=== PATIENT | female | born 1970 | race Caucasian/White ===

== ENCOUNTER 2018-08-20 16:00 | Outpatient (RCR) | payer MEDICAID, SELFPAY | END 2018-08-20 17:15 | disposition home or self-care (01) | LOC: PT 16:00 | PROVIDERS: Visit Provider Nurse Practitioner Family | DX: M54.42 Lumbago with sciatica, left side (principal); M54.41 Lumbago with sciatica, right side | CPT/HCPCS: 97012; 97014; 97110; 97163; G0283 ==

== ENCOUNTER → 2019-03-13 20:12 | Outpatient (CLI) | payer MEDICAID, SELFPAY | PROVIDERS: PCP Nurse Practitioner Family; Visit Provider Specialist | DX: G47.33 Obstructive sleep apnea (adult) (pediatric) (principal) | CPT/HCPCS: 95810 ==

== ENCOUNTER → 2019-04-20 15:35 | Outpatient (CLI) | payer MEDICAID, SELFPAY ==
--- NOTE | 2019-04-20 16:26 | US_ITS ---
US transvaginal HISTORY: ITS.REASON: DYSMENORRHEA ORDERING PHYSICIAN: Amaris Campa APRN PATIENT AGE: 49 years Comparison: None FINDINGS: The uterus is retroverted and measures 6 x 4 x 5 cm with a combined endometrial thickness of 3 mm. There is a small focal area of slight increased echogenicity within the endometrial canal at the fundal area measuring approximately 5 mm. Questionable clinical significance but could be due to small polyp of the endometrium. Ovaries have an unremarkable appearance. No cul-de-sac fluid. IMPRESSION: 1. Retroverted uterus. 2. Possible polyp within the endometrial canal at the fundal area
== END ==
PROVIDERS: PCP Nurse Practitioner Family; Visit Provider Nurse Practitioner Family
DX: N94.6 Dysmenorrhea, unspecified (principal)
CPT/HCPCS: 76830

== ENCOUNTER → 2019-05-11 20:00 | Outpatient (CLI) | payer MEDICAID, SELFPAY ==
[2019-05-12 08:40] LABS: Adenovirus F 40/41, stool Not Detected (NotDetected); Astrovirus Not Detected (NotDetected); Campylobacter Not Detected (NotDetected); Clostridium Difficile A/B, PCR Not Detected (NotDetected); Cryptosporidium Not Detected (NotDetected); Cyclospora Cayetanesis Not Detected (NotDetected); Entamoeba histolytica Not Detected (NotDetected); Enteroaggregative E coli Not Detected (NotDetected); Enteropathogenic E coli Not Detected (NotDetected); Enterotoxigenic E coli Not Detected (NotDetected); Giardia lamblia Not Detected (NotDetected); Norovirus Not Detected (NotDetected); Plesimonas Shigalloides, PCR Not Detected (NotDetected); Rotavirus A Not Detected (NotDetected); Salmonella, PCR Not Detected (NotDetected); Sapovirus Not Detected (NotDetected); Shiga-like toxin E coli Not Detected (NotDetected); Shigella Enterovasive E coli Not Detected (NotDetected); Vibrio Cholerae Not Detected (NotDetected); Vibrio, PCR Not Detected (NotDetected); Yersinia Entercolitica, PCR Not Detected (NotDetected)
== END ==
PROVIDERS: PCP Nurse Practitioner Family; Visit Provider Nurse Practitioner Family
DX: R10.30 Lower abdominal pain, unspecified (principal); R19.7 Diarrhea, unspecified
CPT/HCPCS: 87507

== ENCOUNTER → 2019-05-12 08:32 | Outpatient (CLI) | payer MEDICAID, SELFPAY ==
[2019-05-12 14:10] LABS: Alanine Aminotransferase 33 U/L (12-78); Albumin Level 3.7 gm/dL (3.4-5.0); Alkaline Phosphatase 86 U/L (46-116); Anion Gap 11.3 mEq/L (5-15); Aspartate Amino Transferase 25 U/L (15-37); Bilirubin,Total 0.4 mg/dL (0.2-1.0); Blood Urea Nitrogen 22 mg/dL (7-18); Calcium 8.9 mg/dL (8.5-10.1); Carbon Dioxide 30 mmol/L (21.0-32.0); Chloride 102 mmol/L (98-107); Creatinine,Serum 1.13 mg/dL (0.55-1.02); Estimated Glomerular Filt Rate 51 ml/min (>60); GFR (African American) 62 ML/MIN (>60); Globulin 3.6 gm/dl (1.3-3.2); Glucose 168 mg/dL (74-106); Lipase 221 u/L (73-393); Potassium 4.3 mmoL/L (3.5-5.1); Sodium 139 mmol/L (136-145); Total Protein,Serum 7.3 gm/dL (6.4-8.2)
[2019-05-12 15:12] LABS: Basophils % 0.6 % (0.1-2.0); Eosinophils # 0.4 K/mm3 (0.0-0.4); Hematocrit 42.1 % (37.0-47.0); Lymphocytes % 16.2 % (10-50); Mean Corpuscular HGB Conc 33.2 g/dL (31.8-35.4); Mean Corpuscular Hemoglobin 28.7 pg (27.0-31.2); Mean Corpuscular Volume 86.5 fl (81-99); Mean Platelet Volume 8.2 fl (7.4-10.4); Monocytes # 0.3 K/mm3 (0.1-1.0); Monocytes % 4.8 % (1.7-9.3); Neutrophils # 4.4 K/mm3 (1.8-7.8); Neutrophils % 72.3 % (37.0-80.0); Platelet Count 225 K/mm3 (142-424); Red Blood Count 4.86 M/mm3 (4.20-5.40); Red Cell Distribution Width 13.5 % (11.5-17.5); White Blood Count 6.1 K/mm3 (4.8-10.8)
[2019-05-13 07:09] LABS: Hep A Ab, IgM Negative (Negative); Hepatitis B Core Antibody IgM Negative (Negative); Hepatitis B Surface Antigen Negative (Negative)
[2019-05-14 11:16] LABS: Hepatitis C Antibody <0.1 s/co ratio (0.0-0.9)
== END ==
PROVIDERS: PCP Nurse Practitioner Family; Visit Provider Nurse Practitioner Family
DX: R10.30 Lower abdominal pain, unspecified (principal); R19.7 Diarrhea, unspecified
CPT/HCPCS: 36415; 80053; 80074; 83690; 85025

== ENCOUNTER → 2019-05-21 15:52 | Outpatient (CLI) | payer MEDICAID, SELFPAY ==
--- NOTE | 2019-05-21 15:57 | MM_ITS ---
MM Dig screening mamm BI w/CAD ORDERING PHYSICIAN : Amaris Campa APRN PATIENT AGE: 49 years GENDER: Female COMPARISON: Outside studies from [facility]. May 2013, January 2018, INDICATION: Routine: SCREENING MAMMOGRAM. No hormones. No new complaints. Family history: paternal aunt & maternal aunt with breast cancer TECHNIQUE: Standard CC and MLO images were obtained. R2 CAD reviewed. FINDINGS: . Minimal residual fibroglandular elements throughout both breast, & most evident towards the anterior breast retroareolar region. Overall lower density breast No dominant suspicious mass or calcifications. . CAD computer review highlights no areas of concern overall Right mammogram.: No areas of concern. No interval change Follow-up one year recommended Left Mammogram: No new areas of significant concern. A small minor area of asymmetric density superior superior left breast on MLO view seems to dissipate on the cc view and can be followed. Also Similar area in appearance is seen on previous outside studies now available. Further support benign nature. . IMPRESSION: No areas of significant concern. Bilateral follow-up in one year recommended. BI-RADS Category: 2 Benign Finding(s) RECOMMENDED FOLLOW-UP: 1YR 1 YEAR FOLLOW-UP (A letter has been sent to the patient regarding results of the study.)
== END ==
PROVIDERS: PCP Nurse Practitioner Family; Visit Provider Nurse Practitioner Family
DX: Z12.31 Encounter for screening mammogram for malignant neoplasm of breast (principal)
CPT/HCPCS: 77067

== ENCOUNTER → 2019-09-04 08:20 | Outpatient (CLI) | payer MEDICAID, SELFPAY ==
--- NOTE | 2019-09-04 08:26 | US_ITS ---
PROCEDURE: US ABDOMEN LIMITED CLINICAL INDICATION: DIARRHEA,N V,CIRRHOSIS COMPARISON: No exams were available for comparison FINDINGS: PANCREAS: Unremarkable. No obvious mass or abnormal fluid collection. No ductal dilatation LIVER: No focal liver lesions demonstrated. There is slightly and diffusely increased echogenicity of the liver parenchyma. This suggests mild diffuse fatty infiltration. No intrahepatic biliary ductal dilatation evident. There is appropriate direction of blood flow within a non dilated portal vein RIGHT KIDNEY: The right kidney measures 11 point 3 x 5.6 x 4.8 cm and appears sonographically normal. GALLBLADDER: Post cholecystectomy IMPRESSION: Mild hepatic steatosis otherwise unremarkable study post cholecystectomy Dictated by: Dr. Harshil Daniel MD 09/04/2019 08:[address] Harshil Daniel MD in [place] 09/04/2019 08:59
== END ==
PROVIDERS: PCP Nurse Practitioner Family; Visit Provider Nurse Practitioner Family
DX: R11.2 Nausea with vomiting, unspecified (principal); R19.7 Diarrhea, unspecified; K74.60 Unspecified cirrhosis of liver
CPT/HCPCS: 76705

== ENCOUNTER → 2020-08-05 09:02 | Outpatient (CLI) | payer MEDICAID, SELFPAY ==
--- NOTE | 2020-08-05 09:06 | US_ITS ---
PROCEDURE: US ABDOMEN LIMITED CLINICAL INDICATION: RUQ PAIN COMPARISON: US US ABDOMEN LIMITED from 09/04/2019 FINDINGS: PANCREAS: Unremarkable. No obvious mass or abnormal fluid collection. No ductal dilatation LIVER: There is heterogeneous echogenicity of the liver. No definite focal liver lesions are evident. There is appropriate direction of blood flow within a non dilated portal vein. The liver margin is somewhat irregular suggesting cirrhosis. RIGHT KIDNEY: Unremarkable. Normal size and echogenicity. No hydronephrosis GALLBLADDER: Prior cholecystectomy. Common bile duct is normal at 4 mm. IMPRESSION: Coarse echogenicity of the liver with mild irregularity of the liver margin suggesting cirrhosis. Dictated by: Lewis Lew MD 08/05/2020 16:05 Lewis Lew MD in [place] 08/05/2020 16:05
== END ==
PROVIDERS: PCP Nurse Practitioner Family; Visit Provider Nurse Practitioner Family
DX: R10.11 Right upper quadrant pain (principal); K74.60 Unspecified cirrhosis of liver; E88.01 Alpha-1-antitrypsin deficiency; R14.0 Abdominal distension (gaseous); R11.2 Nausea with vomiting, unspecified; R19.7 Diarrhea, unspecified
CPT/HCPCS: 76705

== ENCOUNTER 2021-08-16 12:25 | Emergency (ER) | payer OTHER, SELFPAY ==
[2021-08-16 12:25] VITALS: BP 116/75; PULSE 68; RESP 19; TEMP 36.7; O2SAT 98; BMI 27.9
[2021-08-16 12:56] LABS: Apearance,Urine Clear (Clear); Bilirubin,Urine Negative (Negative); Blood, Urine Negative (Negative); Color,Urine Yellow (Yellow); Glucose,Urine (UA) 1000 (Negative); Ketones,Urine Negative (Negative); PH,Urine 6.5 (5.0-8.5); Protein,Urine Negative (Negative); UTC Leukocyte Esterase,Urine Negative (Negative); UTC Nitrate,Urine Negative (Negative); Urobilinogen,Urine 2 EU/dl (0.2)
--- NOTE | 2021-08-16 12:56 | HMH.EDUTC ---
[facility] [place] Impression: Vaginal yeast infection Disposition: Home, Self-Care Condition on Discharge: Good Instructions: Vaginal Yeast Infection, DI for Vaginal Yeast Infection, Fluconazole Additional Instructions: Take medication as prescribed Make sure to drink plenty of fluids Follow up with your Family Doctor if no improvement or any worsening of symptoms Return if needed Straight to ER if any life threatening symptoms Prescriptions: Fluconazole [Diflucan 150mg tab] 150 mg PO ONCE #1 tab Transmission Status: Received by [employer] Referrals: Provider,Referral, [Primary Care Provider] - As needed Time of Disposition: 13:04 Medical Decision Making - Helder Inquiry Pt receiving controlled substance: No Helder was queried for this patient: No Vital Signs: 08/16/21 12:25 08/16/21 13:15 Temperature 98.0 F 98.0 F Temperature Source Oral Pulse Rate 68 Pulse Rate [Right Brachial] 68 Respiratory Rate 19 19 Blood Pressure 116/75 Blood Pressure [Right Arm] 116/75 Blood Pressure Mean [Right Arm] 88 Blood Pressure Source [Right Arm] Automatic Cuff Blood Pressure Position [Right Arm] Sitting 02 Sat by Pulse Oximetry 98 Oxygen Delivery Method Room Air - Lab Data Lab results reviewed: Yes: I reviewed the patient's lab results. Lab Results 08/16/21 12:33: Urine Color Yellow, Urine Appearance Clear, Urine pH 6.5, Ur Specific [place] 1.020, Urine Protein Negative, Urine Glucose (UA) 1000, Urine Ketones Negative, Urine Blood Negative, Urine Nitrate Negative, Urine Bilirubin Negative, Urine Urobilinogen 2, Ur Leukocyte Esterase Negative [facility] [place] - General Stated complaint: possible bladder inf Time Seen by Provider: 08/16/21 12:56 Mode of Arrival: Ambulatory Source of Information: Patient Limitations: No Limitations Description of Symptoms (Recalled from Triage Doc. by RN): PATIENT C/O FREQUENT URINATION, BLEEDING WITH URINATION, AND BURNING/IRRITATION OF VAGINAL AREA. TREATED FOR UTI APPROX 1 MONTH AGO HEENT Symptoms (Recalled from RN notes): No Resp Symptoms (Recalled from RN notes): No Skin Symptoms (Recalled from RN notes): No MS Symptoms (Recalled from RN notes): No Functional Status (Recalled from RN notes): WNL - History of Present Illness Provider Complaint: Patient states that she was seen and treated for bladder infection about a month ago States that she finished her medication and was still having frequent urination on and off States that she has been having some burning and itching in her vaginal area when she urinates and noticed that she had a little white thick discharge states that urine looked dark earlier like she may have blood in it States that she thinks her UTI is back - Related Data Home Medications Medication Instructions Recorded Confirmed aspirin 81 mg tablet,delayed 81 mg PO DAILY 30 Days #30 tab 01/19/19 06/22/19 release duloxetine 60 mg capsule,delayed 60 mg PO DAILY 30 Days #60 cap 01/19/19 06/22/19 release fenofibrate nanocrystallized 145 145 mg PO DAILY 30 Days #30 tab 01/19/19 06/22/19 mg tablet hydrochlorothiazide 25 mg tablet 25 mg PO DAILY 30 Days #30 tab 01/19/19 06/22/19 cyclobenzaprine 10 mg tablet 10 mg PO TID PRN #90 tab 05/27/19 06/22/19 ergocalciferol (vitamin D2) 1,250 50,000 unit PO QWEEK #4 cap 05/27/19 06/22/19 mcg (50,000 unit) capsule gabapentin 600 mg tablet 600 mg PO QID 30 Days #120 tab 05/27/19 06/22/19 metformin 1,000 mg tablet 1,000 mg PO BID #60 tab 05/27/19 06/22/19 omeprazole 40 mg capsule,delayed 40 mg PO DAILY #30 cap 05/27/19 06/22/19 release Previous Rx's Medication Instructions Recorded Fluconazole [Diflucan 150mg tab] 150 mg PO ONCE #1 tab 08/16/21 Allergies Allergy/AdvReac Type Severity Reaction Status Date / Time erythromycin base Allergy Unknown Verified 06/16/19 14:14 - Worker's Comp Is this a Worker's Comp case?: No [facility] History - Hepatitis A Screen Drug use
[2021-08-16 13:15] VITALS: BP 116/75; PULSE 68; RESP 19; TEMP 36.7; O2SAT 98
== END 2021-08-16 13:20 | disposition home or self-care (01) ==
PROVIDERS: Emergency Provider Nurse Practitioner
DX: B37.3 Candidiasis of vulva and vagina (principal); E78.5 Hyperlipidemia, unspecified; I10 Essential (primary) hypertension; E11.9 Type 2 diabetes mellitus without complications; F41.8 Other specified anxiety disorders; K21.9 Gastro-esophageal reflux disease without esophagitis; Z79.899 Other long term (current) drug therapy
CPT/HCPCS: 81003; 99202; G0463

== ENCOUNTER 2021-10-28 10:01 | Emergency (ER) | payer MEDICAID, SELFPAY ==
--- NOTE | 2021-10-28 12:05 | HMH.EDUTC ---
[facility] – [place] Disposition Clinical Impression: Viral syndrome, Exposure to COVID-19 virus Diabetes type 2, uncontrolled Qualifiers: Glycemic state: with hyperglycemia Qualified Code(s): E11.65 - Type 2 diabetes mellitus with hyperglycemia Disposition: Home, Self-Care Condition on Discharge: Good Instructions: Insulin, Type 2 Diabetes Additional Instructions: Check your blood sugars four times per day. Use the insulin as directed. Use the hypoglycemia emergency kit if you have a dangerously low blood sugar and you are unable to take anything by mouth. Follow up with your primary care physician on Saturday. GO TO THE ER FOR ANY WORSENING SYMPTOMS OR CONCERNS Quarantine until you know the results of your covid-19 test. If it is positive, the health department should call you and give you further instructions about your length of Quarantine and other things. Notify your school or workplace of your results and follow their instructions regarding return to work/school. Prescriptions: glucagon HCL [Glucagon Emergency Kit] 1 mg IJ NEEDED PRN #1 kit PRN Reason: Blood Sugar - Low Transmission Status: Received by [employer] Insulin Glargine,Hum.rec.anlog [Toujeo Solostar] 8 units SQ BID 30 Days #1 pen needle Transmission Status: Received by [employer] Referrals: Provider,Referral, [Primary Care Provider] - Forms: Work/School Release Time of Disposition: 13:08 Medical Decision Making - Medical Records Medical records reviewed: No: I reviewed the patient's medical records. - Helder Inquiry Pt receiving controlled substance: No Vital Signs: 10/28/21 12:20 10/28/21 13:15 Temperature 98.2 F 98.2 F Temperature Source Oral Pulse Rate 89 Pulse Rate [Left] 89 Respiratory Rate 18 18 Blood Pressure 126/90 Blood Pressure [Right Arm] 126/90 Blood Pressure Mean [Right Arm] 102 02 Sat by Pulse Oximetry 97 - Lab Data Lab Results 10/28/21 12:41: Urine Color Dark yellow, Urine Appearance Turbid, Urine pH 6.0, Ur Specific [place] > 1.030 H, Urine Protein 4+, Urine Glucose (UA) 4+, Urine Ketones Negative, Urine Blood Trace, Urine Nitrate Negative, Urine Bilirubin Negative, Urine Urobilinogen 0.2, Ur Leukocyte Esterase Negative Orders (Tests/Meds): ORDERS Category Date Time Status Urine Culture Stat Micro 10/28/21 12:38 Results Medical Decision Narrative: She refused any blood work. She did give a urine sample and there was no ketones in it. [facility] [place] HPI - General Stated complaint: covid symptoms, elevated glucose Time Seen by Provider: 10/28/21 12:05 - History of Present Illness Provider Complaint: She states that for the past 2 weeks her blood sugars have been running very high. She is a known type 2 diabtetic. She was on insulin in the past, but she did better and started to be able to control it with oral meds and diet. The oral medication caused her to start having very frequent uti's, so it was stopped about 2 months ago. Since then she has controlled her blood sugars with diet and she has did good until about 2 weeks ago. Her mother from cancer and she has been going through significantly more stress than she is used to. Either the stress or something else has caused her blood sugars to be running very high. She denies any other complaints. She has also been exposed to covid-19 over the past few days, but she denies symptoms of that. - Related Data Home Medications Medication Instructions Recorded Confirmed aspirin 81 mg tablet,delayed 81 mg PO DAILY 30 Days #30 tab 01/19/19 06/22/19 release duloxetine 60 mg capsule,delayed 60 mg PO DAILY 30 Days #60 cap 01/19/19 06/22/19 release fenofibrate nanocrystallized 145 145 mg PO DAILY 30 Days #30 tab 01/19/19 06/22/19 mg tablet hydrochlorothiazide 25 mg tablet 25 mg PO DAILY 30 Days #30 tab 01/19/19 06/22/19 cyclobenzaprine 10 mg tablet 10 mg PO TID PRN #90 tab 05/27/19 06/22/19 ergocalciferol (
[2021-10-28 12:20] VITALS: BP 126/90; PULSE 89; RESP 18; TEMP 36.8; O2SAT 97; BMI 27.3
[2021-10-28 12:43] LABS: Apearance,Urine Turbid (Clear); Bilirubin,Urine Negative (Negative); Blood, Urine Trace (Negative); Color,Urine Dark Yellow (Yellow); Glucose,Urine (UA) 4+ (Negative); Ketones,Urine Negative (Negative); Protein,Urine 4+ (Negative); Specific Gravity, Urine > 1.030 (1.005-1.030); Urobilinogen,Urine 0.2 EU/dl (0.2)
[2021-10-28 12:44] LABS: UTC Leukocyte Esterase,Urine Negative (Negative); UTC Nitrate,Urine Negative (Negative)
[2021-10-28 13:15] VITALS: BP 126/90; PULSE 89; RESP 18; TEMP 36.8
== END 2021-10-28 13:37 | disposition home or self-care (01) ==
PROVIDERS: Emergency Provider Nurse Practitioner Family
DX: E11.65 Type 2 diabetes mellitus with hyperglycemia (principal); Z20.822 Contact with and (suspected) exposure to COVID-19; B34.9 Viral infection, unspecified; F41.8 Other specified anxiety disorders; K21.9 Gastro-esophageal reflux disease without esophagitis; E78.5 Hyperlipidemia, unspecified; I10 Essential (primary) hypertension; F17.210 Nicotine dependence, cigarettes, uncomplicated
CPT/HCPCS: 81003; 87086; 99202; C9803; G0463; U0003; U0005

== ENCOUNTER → 2022-04-13 12:52 | Outpatient (CLI) | payer MEDICAID, SELFPAY ==
--- NOTE | 2022-04-13 12:54 | MM_ITS ---
PROCEDURE INFORMATION: Exam: MG Bilateral Screening 3D Mammography Exam date and time: 04/13/2022 12:52 PM Age: 52 years old Clinical indication: Screening examination TECHNIQUE: Imaging protocol: Bilateral Screening tomosynthesis and 2D mammography including computer-aided detection (CAD) when performed. COMPARISON: MG MM DIG SCREENING MAMM BI W/CAD 05/21/2019 4:09 PM FINDINGS: MAMMOGRAPHY: Breast composition: The breasts are almost entirely fatty. Mass: None. Architectural distortion: None. Calcifications: No suspicious calcifications. Asymmetric density: None. Skin thickening: None. Axillary adenopathy: None. IMPRESSION: No mammographic evidence of malignancy. Annual screening is recommended unless otherwise clinically indicated. ASSESSMENT: BI-RADS Category 1: Negative
== END ==
PROVIDERS: PCP Nurse Practitioner Family; Visit Provider Nurse Practitioner Family
DX: Z12.31 Encounter for screening mammogram for malignant neoplasm of breast (principal)
CPT/HCPCS: 77063; 77067

== ENCOUNTER 2022-04-26 13:00 | Outpatient (RCR) | payer MEDICAID, SELFPAY | END 2022-04-26 15:13 | disposition home or self-care (01) | LOC: PT.CARL 13:00 | PROVIDERS: Visit Provider Nurse Practitioner Family | DX: M79.7 Fibromyalgia (principal) | CPT/HCPCS: 97110; 97116; 97140; 97163; 97530 ==

== ENCOUNTER → 2022-11-14 09:35 | Outpatient (CLI) | payer MEDICAID, SELFPAY ==
[2022-11-14 10:16] LABS: Basophils # 0.1 K/mm3 (0-0.2); Basophils % 1.1 % (0.1-2.0); Eosinophils # 0.3 K/mm3 (0.0-0.4); Eosinophils % 4.8 % (0.1-12.0); Hematocrit 47.9 % (37.0-47.0); Hemoglobin 15.3 g/dL (12.2-16.2); Lymphocytes # 0.7 K/mm3 (0.7-4.5); Lymphocytes % 12.2 % (10-50); Mean Corpuscular Hemoglobin 27.8 pg (27.0-31.2); Mean Corpuscular Volume 86.9 fl (81-99); Mean Platelet Volume 8.4 fl (7.4-10.4); Monocytes # 0.2 K/mm3 (0.1-1.0); Monocytes % 4.5 % (1.7-9.3); Neutrophils # 4.2 K/mm3 (1.8-7.8); Neutrophils % 77.4 % (37.0-80.0); Platelet Count 163 K/mm3 (142-424); Red Blood Count 5.51 M/mm3 (4.20-5.40); White Blood Count 5.5 K/mm3 (4.8-10.8)
[2022-11-14 10:30] LABS: INR 1.01 (0.9-1.1); Prothrombin Time 10.9 seconds (10.1-12.5)
[2022-11-14 11:10] LABS: Alanine Aminotransferase 30 U/L (12-78); Albumin Level 4.7 g/dl (3.5-5.0); Albumin/Globulin Ratio 1.4 (1.1-1.8); Alkaline Phosphatase 177 U/L (38-126); Anion Gap 8.9 mEq/L (5-15); Aspartate Amino Transferase 56 U/L (14-36); Bilirubin,Total 0.6 mg/dl (0.2-1.3); Blood Urea Nitrogen 15 mg/dl (7-17); Calcium 9.1 mg/dl (8.4-10.2); Carbon Dioxide 33 mmol/L (22.0-30.0); Chloride 99 mmol/L (98-107); Estimated Glomerular Filt Rate 66 ml/min (>60); GFR (African American) 80 ML/MIN (>60); Globulin 3.4 g/dL (1.3-3.2); Glucose 310 mg/dl (74-100); Potassium 3.9 mmoL/L (3.5-5.1); Sodium 137 mmol/L (136-145); Total Protein,Serum 8.1 g/dl (6.3-8.2)
[2022-11-15 12:02] LABS: AFP, Tumor Marker 6.1 ng/mL (0.0-9.2)
== END ==
PROVIDERS: PCP Nurse Practitioner Family; Visit Provider Nurse Practitioner
DX: K74.60 Unspecified cirrhosis of liver (principal)
CPT/HCPCS: 36415; 80053; 82105; 85025; 85610

== ENCOUNTER → 2023-01-04 14:18 | Outpatient (CLI) | payer MEDICAID, SELFPAY ==
[2023-01-04 15:32] LABS: Alanine Aminotransferase 29 U/L (12-78); Alkaline Phosphatase 129 U/L (38-126); Aspartate Amino Transferase 50 U/L (14-36); Bilirubin,Direct 0.3 mg/dl (0.0-0.4); Bilirubin,Indirect 0.5 mg/dL (0.0-0.9); Bilirubin,Total 0.8 mg/dl (0.2-1.3); Bilirubin,Unconjugated 0.4 mg/dL (0.0-1.1); Gamma Glutamyl Transpeptidase 262 U/L (12-43)
[2023-01-04 15:36] LABS: INR 1.05 (0.9-1.1); Prothrombin Time 11.3 seconds (10.1-12.5)
[2023-01-04 16:10] LABS: Iron 112 ug/dL (37-170)
[2023-01-04 16:20] LABS: Total Iron Binding Capacity 327 ug/dL (265-497)
[2023-01-04 16:47] LABS: Ferritin 289 ng/ml (11.1-264)
[2023-01-06 09:14] LABS: Ceruloplasmin 24.9 mg/dL (19.0-39.0); Immunoglobulin G, Qn 1372 mg/dL (586-1602)
[2023-01-07 15:49] LABS: Actin (Smooth Muscle) Antibody 11 Units (0-19); Anti-Centromere B Antibodies <0.2 AI (0.0-0.9); Anti-DNA (DS) Ab Qn 1 IU/mL (0-9); Anti-Jo-1 <0.2 AI (0.0-0.9); Anti-Smith Antibody <0.2 AI (0.0-0.9); Antichromatin Antibodies <0.2 AI (0.0-0.9); Antiscleroderma-70 Antibodies <0.2 AI (0.0-0.9); Deamidated Gliadin Abs, IgA 13 units (0-19); Deamidated Gliadin Abs, IgG 3 units (0-19); Mitochondrial (M2) Antibody <20.0 Units (0.0-20.0); RNP Antibodies 0.3 AI (0.0-0.9); Sjogren's Anti-SS-A <0.2 AI (0.0-0.9); Sjogren's Anti-SS-B <0.2 AI (0.0-0.9); Tissue Transglutaminase IgA Ab <2 U/mL (0-3); Tissue Transglutaminase IgG Ab 4 U/mL (0-5)
[2023-01-07 17:20] LABS: Endomysial IgA Antibody Negative (Negative)
[2023-01-08 16:57] LABS: Alpha-1-Antitrypsin 93 mg/dL (101-187); Phenotype (PI) SZ (.)
[2023-01-09 09:48] LABS: Reticulin IgA Antibody Negative titer (Neg:<1:2.5)
[2023-01-15 05:01] LABS: Hep A Ab, IgM NEGATIVE; Hepatitis B Core Antibody IgM NEGATIVE; Hepatitis B Surface Antigen NEGATIVE; Hepatitis C Antibody NON REACTIVE
== END ==
PROVIDERS: PCP Nurse Practitioner Family; Visit Provider Nurse Practitioner
DX: K74.60 Unspecified cirrhosis of liver (principal)
CPT/HCPCS: 36415; 80074; 80076; 81256; 82103; 82104; 82390; 82728; 82784; 82977; 83516; 83540; 83550; 85610; 86225; 86235; 86255; 86256

== ENCOUNTER 2023-06-26 17:00 | Outpatient (RCR) | payer MEDICAID, SELFPAY | END 2023-07-04 15:30 | disposition home or self-care (01) | LOC: PT 17:00 | PROVIDERS: Visit Provider Nurse Practitioner Family | DX: M25.552 Pain in left hip (principal) | CPT/HCPCS: 97010; 97014; 97035; 97110; 97140; 97163; 97164; 97530; G0283 ==

== ENCOUNTER 2023-07-10 14:58 | Outpatient (RCR) | payer MEDICAID, SELFPAY | END 2023-08-12 10:14 | disposition home or self-care (01) | LOC: PT 14:58 | PROVIDERS: PCP Nurse Practitioner Family; Visit Provider Psychiatry & Neurology Neurology | DX: R27.8 Other lack of coordination (principal) | CPT/HCPCS: 97163 ==

== ENCOUNTER 2023-10-05 14:55 | Emergency (ER) | payer MEDICAID, SELFPAY ==
[2023-10-05 14:56] VITALS: BP 125/82; PULSE 88; RESP 17; TEMP 36.9; O2SAT 96; BMI 29.6
--- NOTE | 2023-10-05 15:29 | XR_ITS ---
PROCEDURE INFORMATION: Exam: XR Chest Exam date and time: 10/05/2023 3:31 PM Age: 53 years old Clinical indication: Cough TECHNIQUE: Imaging protocol: Radiologic exam of the chest. Views: 1 view. COMPARISON: No relevant prior studies available. FINDINGS: Lungs: No lobar consolidation, pleural effusion or pulmonary edema. Pleural spaces: See Lungs finding. Heart/Mediastinum: Unremarkable. No cardiomegaly. Bones/joints: Unremarkable. IMPRESSION: No lobar consolidation, pleural effusion or pulmonary edema. Plain films are relatively insensitive for detecting any possible ground glass opacities.
[2023-10-05 15:30] VITALS: BP 125/74; PULSE 80; O2SAT 98
--- NOTE | 2023-10-05 15:31 | HMH.EDGENADL ---
Discharge Plan Disposition Patient Disposition: Home, Self-Care Prescriptions Prescriptions: New prednisone 50 mg tablet 50 mg PO DAILY 4 Days Qty: 4 0RF albuterol sulfate 1.25 mg/3 mL solution for nebulization 1.25 mg inhalation Q6H PRN (Reason: wheezing) Qty: 75 0RF No Action hydrochlorothiazide 25 mg tablet 25 mg PO DAILY 30 Days Qty: 30 Patient Comments: TAKE 1 TABLET ONCE A DAY duloxetine 60 mg capsule,delayed release(DR/EC) 60 mg PO DAILY 30 Days Qty: 60 Patient Comments: TAKE 1 CAPSULE 2 TIMES A DAY aspirin 81 mg tablet,delayed release (DR/EC) 81 mg PO DAILY 30 Days Qty: 30 Patient Comments: TAKE 1 TABLET ONCE A DAY fenofibrate nanocrystallized 145 mg tablet 145 mg PO DAILY 30 Days Qty: 30 Patient Comments: TAKE 1 TABLET ONCE A DAY gabapentin 600 mg tablet 600 mg PO QID 30 Days Qty: 120 Patient Comments: TAKE ONE TABLET FOUR TIMES DAILY metformin 1,000 mg tablet 1,000 mg PO BID Qty: 60 Patient Comments: TAKE 1 TABLET 2 TIMES A DAY omeprazole 40 mg capsule,delayed release(DR/EC) 40 mg PO DAILY Qty: 30 Patient Comments: TAKE 1 CAPSULE ONCE A DAY ergocalciferol (vitamin D2) 50,000 unit capsule 50,000 unit PO QWEEK Qty: 4 Patient Comments: TAKE ONE CAPSULE ONCE A WEEK. cyclobenzaprine 10 mg tablet 10 mg PO TID PRN (Reason: pain) Qty: 90 Patient Comments: TAKE 1 TABLET 3 TIMES A DAY fluconazole 150 MG tablet 150 mg PO ONCE Qty: 1 0RF insulin glargine U-300 conc 300 UNIT/ML insulin pen 8 units SQ BID 30 Days Qty: 1 0RF glucagon HCl 1 MG recon soln 1 mg IJ NEEDED PRN (Reason: Blood Sugar - Low) Qty: 1 0RF Rx Instructions: Use as directed for hypoglycemic emergency. Referrals Follow up/Referrals: Jessica Man [Primary Care Provider] - See instructions Activity Restrictions/Add. Instructions Additional Instructions/Restrictions: At this time it was felt you are safe to be discharged home. If new or worsening symptoms please do not hesitate to return the emergency department. Please take your medications as prescribed. Clinical Impressions Clinical Impression: Chronic obstructive pulmonary disease with (acute) exacerbation Discharge ED Provider: Kel Amezcua General Adult HPI General Chief complaint: Upper Respiratory Infection Stated complaint: cough, chest congestion, sinus drainiage Time Seen by Provider: 10/05/23 15:26 Mode of Arrival: Ambulatory Source of Information: Patient Limitations: No Limitations Description of Symptoms (Recalled from ER Triage Doc. by RN): Presents to ED with c/o body aches, cough, and congestion x 1 week. Patient reports right sided rib pain upon inspiration. Denies meds or fever [employer]. PMH: COPD History of Present Illness HPI narrative: Patient is a 53-year-old female past medical history of COPD not on home oxygen who presents emergency department for evaluation of cough. Onset was acute, over the last 8 to 10 days. Patient has positive sick contacts. Adequate p.o. intake. No other acute complaints at this time. Related Data Home Medications Medication Instructions Recorded Confirmed aspirin 81 mg tablet,delayed 81 mg PO DAILY preventitive 30 01/19/19 06/22/19 release days #30 tabs duloxetine 60 mg capsule,delayed 60 mg PO DAILY Nausea & vomiting 01/19/19 06/22/19 release 30 days #60 caps fenofibrate nanocrystallized 145 145 mg PO DAILY Cholesterol 30 01/19/19 06/22/19 mg tablet days #30 tabs hydrochlorothiazide 25 mg tablet 25 mg PO DAILY Fluid 30 days #30 01/19/19 06/22/19 tabs cyclobenzaprine 10 mg tablet 10 mg PO TID PRN pain #90 tabs 05/27/19 06/22/19 ergocalciferol (vitamin D2) 1,250 50,000 unit PO QWEEK Supplement #4 05/27/19 06/22/19 mcg (50,000 unit) capsule caps gabapentin 600 mg tablet 600 mg PO QID Pain 30 days #120 05/27/19 06/22/19 tabs metformin 1,000 mg tablet 1,000 mg PO BID sugar #6
[2023-10-05 15:35] LABS: Coronavirus 19, PCR Not Detected (NotDetected); Influenza A, PCR Not Detected (NotDetected); Influenza B, PCR Not Detected (NotDetected)
[2023-10-05 15:37] VITALS: PULSE 73; PULSE 74
[2023-10-05 16:06] VITALS: BP 119/74; PULSE 85; RESP 16; TEMP 36.9; O2SAT 96
== END 2023-10-05 16:08 | disposition home or self-care (01) ==
PROVIDERS: Emergency Provider Emergency Medicine; PCP Nurse Practitioner Family
DX: J44.1 Chronic obstructive pulmonary disease with (acute) exacerbation (principal); R09.81 Nasal congestion; R05.9 Cough, unspecified; R09.89 Other specified symptoms and signs involving the circulatory and respiratory systems; F17.210 Nicotine dependence, cigarettes, uncomplicated
CPT/HCPCS: 71045; 87636; 99283

== ENCOUNTER 2023-11-05 15:34 | Outpatient (CLI) | payer MEDICAID, SELFPAY ==
--- NOTE | 2023-11-05 15:40 | MM_ITS ---
PROCEDURE INFORMATION: Exam: MG Bilateral Screening 3D Mammography Exam date and time: 11/05/2023 3:27 PM Age: 53 years old Clinical indication: Screening examination TECHNIQUE: Imaging protocol: Bilateral Screening tomosynthesis and 2D mammography including computer-aided detection (CAD) when performed. COMPARISON: 1. MG MM DIG SCREENING MAMM BI W/CAD 04/13/2022 12:52 PM 2. MG MM DIG SCREENING MAMM BI W/CAD 05/21/2019 4:09 PM FINDINGS: MAMMOGRAPHY: Breast composition: There are scattered areas of fibroglandular density. Mass: None. Architectural distortion: None. Calcifications: No suspicious calcifications. Asymmetric density: None. Skin thickening: None. Axillary adenopathy: None. IMPRESSION: No mammographic evidence of malignancy. Annual screening is recommended unless otherwise clinically indicated. ASSESSMENT: BI-RADS Category 1: Negative
== END 2023-11-05 23:59 ==
LOC: RAD 15:35
PROVIDERS: PCP Nurse Practitioner Family; Visit Provider Nurse Practitioner Family
DX: Z12.31 Encounter for screening mammogram for malignant neoplasm of breast (principal)
CPT/HCPCS: 77063; 77067

== ENCOUNTER 2024-02-21 14:14 | Outpatient (CLI) | payer MEDICAID, SELFPAY ==
--- NOTE | 2024-02-21 14:15 | US_ITS ---
PROCEDURE: US TRANSVAGINAL CLINICAL INDICATION: pelvic pain COMPARISON: US TRANVAG US transvaginal from 04/20/2019 FINDINGS: Transvaginal sonographic images of the pelvis were obtained. UTERUS: 5.4cm x 4.8 cmx 3.2cm retroflexed with a combined endometrial thickness of 5.3mm. There is a 6 mm nabothian cyst. There is a small amount of fluid within the endometrial canal. LEFT OVARY: 1.8 cmx1.2cmx2.4cm with a volume of 2.7ml. RIGHT OVARY: 1.6 cmx 1.6 cmx2.7 cm with a volume of 3.6ml. There are multiple small calcifications around the periphery of the right ovary. Both ovaries are seen and appear normal. Doppler flow to both ovaries are seen. There is a small amount of fluid in the cul-de-sac. IMPRESSION: 1. Retroverted uterus normal in shape and small in size. The endometrium is thin. 2. There is a small amount of fluid within the endometrial canal. 3. Both ovaries are seen and appear normal. 4. There is a small amount of fluid in the cul-de-sac. Dictated by: Gerardo Villafuerte MD 02/21/2024 18:51 Gerardo Villafuerte MD in [place] 02/21/2024 18:51
== END 2024-02-21 23:59 | disposition home or self-care (01) ==
LOC: RAD 14:14
PROVIDERS: PCP Nurse Practitioner Family; Visit Provider Nurse Practitioner Obstetrics & Gynecology
DX: R10.2 Pelvic and perineal pain (principal)
CPT/HCPCS: 76830

== ENCOUNTER 2024-03-09 00:57 | Emergency (ER) | payer MEDICAID, SELFPAY ==
[2024-03-09 00:57] VITALS: BP 124/82; PULSE 83; RESP 20; TEMP 36.7; O2SAT 95; BMI 29.5
[2024-03-09 01:00] VITALS: BP 116/73; PULSE 79; O2SAT 97
--- NOTE | 2024-03-09 01:03 | ED_ITS ---
Discharge Plan Disposition Patient Disposition: Home, Self-Care Prescriptions Prescriptions: No Action hydrochlorothiazide 25 mg tablet 25 mg PO DAILY 30 Days Qty: 30 Patient Comments: TAKE 1 TABLET ONCE A DAY duloxetine 60 mg capsule,delayed release(DR/EC) 60 mg PO DAILY 30 Days Qty: 60 Patient Comments: TAKE 1 CAPSULE 2 TIMES A DAY aspirin 81 mg tablet,delayed release (DR/EC) 81 mg PO DAILY 30 Days Qty: 30 Patient Comments: TAKE 1 TABLET ONCE A DAY fenofibrate nanocrystallized 145 mg tablet 145 mg PO DAILY 30 Days Qty: 30 Patient Comments: TAKE 1 TABLET ONCE A DAY omeprazole 40 mg capsule,delayed release(DR/EC) 40 mg PO DAILY Qty: 30 Patient Comments: TAKE 1 CAPSULE ONCE A DAY cyclobenzaprine 10 mg tablet 10 mg PO TID PRN (Reason: pain) Qty: 90 Patient Comments: TAKE 1 TABLET 3 TIMES A DAY Linzess 290 mcg capsule PO DAILY PRN Patient Comments: TAKE 1 CAPSULE 1 TIME EACH DAY (DME) pen needle, diabetic [BD Ultra-Fine Jazlyn Pen Needle] 32 gauge x 5/32 needle See Rx Instructions .ROUTE .MEDSUPPLY Qty: 1200 Patient Comments: USE TO INJECT INSULIN 4 TIMES EACH DAY Rx Instructions: As directed Januvia 50 mg tablet PO DAILY Patient Comments: TAKE 1 TABLET 1 TIME EACH DAY rosuvastatin 20 mg tablet PO DAILY Patient Comments: TAKE 1 TABLET 1 TIME EACH DAY hydroxyzine HCl 25 mg tablet PO ONCE Patient Comments: TAKE 1 TABLET 1 TIME EACH DAY (DME) OneTouch Ultra Test Strip See Rx Instructions .ROUTE .MEDSUPPLY Qty: 10 Patient Comments: USE TO CHECK BLOOD SUGAR 3 TIMES EACH DAY Rx Instructions: As directed lamotrigine 150 mg tablet PO DAILY Patient Comments: TAKE 1 TABLET 1 TIME EACH DAY IN THE MORNING (DME) Dexcom G7 Sensor Device See Rx Instructions .ROUTE .MEDSUPPLY Qty: 1 Patient Comments: USE TO MONITOR BLOOD SUGAR. REPLACE EVERY 10 DAYS Rx Instructions: As directed insulin lispro 100 unit/mL insulin pen SQ DAILY Patient Comments: INJECT 6 UNITS UNDER THE SKIN 3 TIMES EACH DAY BEFORE MEALS. FOR EACH 30 UNITS THAT BLOOD SUGAR IS OVER 150, INCREASE DOSE BY 1 UNIT. DO NOT INJECT MORE THAN 60 UNITS IN 1 DAY. gabapentin 800 mg tablet PO DAILY Patient Comments: TAKE 1 TABLET 4 TIMES EACH DAY insulin glargine [Lantus Solostar U-100 Insulin] 100 unit/mL (3 mL) insulin pen SQ DAILY Patient Comments: INJECT 34 UNITS UNDER THE SKIN 1 TIME EACH DAY IN THE EVENING PLUS TITRATION ADVISED. MAX DOSE OF 50 UNITS A DAY. (DME) Dexcom G7 Small Business Banking Officer Misc See Rx Instructions .ROUTE .MEDSUPPLY Qty: 1 Patient Comments: USE TO MONITOR BLOOD SUGAR DIRECTED Rx Instructions: As directed (DME) Dexcom G6 Transmitter Device See Rx Instructions .ROUTE .MEDSUPPLY Qty: 1 Patient Comments: USU TO MEASURE BLOOD SUGAR DIRECTED. REPLACE AFTER 90 DAYS. Rx Instructions: As directed nicotine 21 mg/24 hr patch 24 hour 1 patch topical DAILY Patient Comments: APPLY 1 PATCH ONTO THE SKIN 1 TIME EACH DAY DIRECTED. REMOVE BEFORE APPLYING NEXT PATCH. ibuprofen 800 mg tablet PO PRN Patient Comments: TAKE 1 TABLET 3 TIMES EACH DAY WITH FOOD NEEDED FOR PAIN insulin glargine U-300 conc 300 UNIT/ML insulin pen 8 units SQ BID 30 Days Qty: 1 0RF glucagon HCl 1 MG recon soln 1 mg IJ NEEDED PRN (Reason: Blood Sugar - Low) Qty: 1 0RF Rx Instructions: Use as directed for hypoglycemic emergency. Activity Restrictions/Add. Instructions Additional Instructions/Restrictions: Please follow-up with your primary care provider. Please return to the emergency department if you develop any new or worsening symptoms or become concerned for your health. Clinical Impressions Clinical Impression: Encounter for medical assessment Overdose of insulin Qualifiers: Encounter type: initial encounter Injury intent: accidental or unintentional Qualified Code(s): T38.3X1A - Poisoning by insulin and oral hypoglycemic [antidiabetic] drugs, accidental (unintentional), initial encounter Discharge ED Provider: Alex Pacheco General Adult HPI General Chief complaint: Overdose Stated complaint: accidentally took extra dose of insulin Time Seen by Provider: 03/09/24 01:00 History of Present Illness HPI narrative: 54-year-old female with a variety of past medical conditions including insulin- dependent type 2 diabetes presents because she accidentally took extra insulin. She reports that she took her normal 12 units of short acting insulin. She went to take her nighttime long-acting insulin (approximately 30 units) but instead accidentally took the short acting. She presents via EMS for further assessment. She reports normal blood sugars approximately 120-180. She has a Dexcom. Related Data Home Medications Medication Instructions Recorded Confirmed aspirin 81 mg tablet,delayed 81 mg PO DAILY preventitive 30 01/19/19 02/25/24 release days #30 tabs duloxetine 60 mg capsule,delayed 60 mg PO DAILY Nausea & vomiting 01/19/19 02/25/24 release 30 days #60 caps fenofibrate nanocrystallized 145 145 mg PO DAILY Cholesterol 30 01/19/19 02/25/24 mg tablet days #30 tabs hydrochlorothiazide 25 mg tablet 25 mg PO DAILY Fluid 30 days #30 01/19/19 02/25/24 tabs cyclobenzaprine 10 mg tablet 10 mg PO TID PRN pain #90 tabs 05/27/19 02/25/24 omeprazole 40 mg capsule,delayed 40 mg PO DAILY stomach #30 caps 05/27/19 02/25/24 release blood sugar diagnostic (OneTouch #10 ea 02/17/24 02/25/24 Ultra Test strips) blood-glucose meter,continuous #1 ea 02/17/24 02/25/24 (DexWDT Acquisition G7 Small Business Banking Officer) blood-glucose sensor (DexWDT Acquisition G7 #1 ea 02/17/24 02/25/24 Sensor device) blood-glucose transmitter (Dexcom #1 ea 02/17/24 02/25/24 G6 Transmitter device) gabapentin 800 mg tablet mg PO DAILY 02/17/24 02/25/24 hydroxyzine HCl 25 mg tablet mg PO ONCE 02/17/24 02/25/24 ibuprofen 800 mg tablet mg PO PRN 02/17/24 02/25/24 insulin glargine 100 unit/mL (3 unit SQ DAILY 02/17/24 02/25/24 mL) subcutaneous pen (Lantus Solostar U-100 Insulin) insulin lispro 100 unit/mL SQ DAILY 02/17/24 02/25/24 subcutaneous pen lamotrigine 150 mg tablet mg PO DAILY 02/17/24 02/25/24 linaclotide 290 mcg capsule mcg PO DAILY PRN 02/17/24 02/25/24 (Linzess) nicotine 21 mg/24 hr daily 1 patch topical DAILY 02/17/24 02/25/24 transdermal patch pen needle, diabetic 32 gauge x #1,200 ea 02/17/24 02/25/24 (BD Ultra-Fine Jazlyn Pen Needle) rosuvastatin 20 mg tablet mg PO DAILY 02/17/24 02/25/24 sitagliptin phosphate 50 mg tablet mg PO DAILY 02/17/24 02/25/24 (Januvia) Previous Rx's Medication Instructions Recorded glucagon HCl 1 mg solution for 1 mg IJ NEEDED PRN Blood Sugar 10/28/21 injection - Low #1 kit insulin glargine U-300 conc 300 8 units SQ BID 30 days #1 pen 10/28/21 unit/mL (1.5 mL) subcutaneous pen needle Allergies Allergy/AdvReac Type Severity Reaction Status Date / Time erythromycin base Allergy Unknown Verified 02/25/24 10:50 [facility] Disclaimer: The information contained in this section may have been updated after the patie nt was seen, as this information can be updated by other users. Medical History Esophagus disorder Surgical History History of unilateral salpingectomy Right History of cholecystectomy Family History Other Asthma Cancer Coronary artery disease Diabetes FHx: mental illness Heart attack Hypertension Kidney disease Stroke Social History Smoking Status: Current every day smoker alcohol intake: never substance use type: denies use current occupational status: other Travel in the last 8 weeks: None caffeine: Yes ROS Obtained: Yes All systems reviewed & no additional complaints except as documented Physical Exam General General appearance: alert and in no apparent distress Head Head exam: atraumatic and normocephalic Eye Eye exam: Present normal appearance, PERRL and EOMI ENT ENT exam: Present normal oropharynx and normal external ear exam Neck Neck exam: Present normal inspection and full ROM Chest Chest inspection: Present normal inspection and symmetric chest wall rise; Absent tenderness Respiratory Respiratory exam: Present normal lung sounds bilaterally; Absent respiratory distress Cardiovascular Cardiovascular exam: Present regular rate and normal rhythm Abdominal Exam Abdominal exam: Present soft; Absent distention, tenderness or guarding Extremities Exam Extremities exam: Present normal inspection; Absent edema or joint swelling Back Exam Back exam: Present normal inspection; Absent tenderness Neurological Exam Neurological exam: Present alert and oriented X3; Absent motor sensory deficit Psychiatric Psychiatric exam: Present normal affect and normal mood Skin Skin exam: Present warm, dry and normal color Lymphatic Lymphatic Findings: no adenopathy Medical Decision Making Medical Records Medical records reviewed: Yes I reviewed the patient's medical records. Helder Inquiry Pt receiving controlled substance: No Helder was queried for this patient: No Vital Signs: 03/09/24 00:57 03/09/24 01:00 03/09/24 01:30 Temperature 98.0 F Temperature Source Oral Pulse Rate 79 79 Pulse Rate [Right Radial] 83 Respiratory Rate 20 Blood Pressure 116/73 111/69 Blood Pressure [Right Arm] 124/82 Blood Pressure Mean 85 76 Blood Pressure Mean [Right Arm] 96 Blood Pressure Source [Right Arm] Automatic Cuff Blood Pressure Position [Right Arm] Sitting 02 Sat by Pulse Oximetry 95 97 96 Oxygen Delivery Method Room Air Lab Data Lab results reviewed: Yes I reviewed the patient's lab results. Medical Decision Narrative: 54-year-old female with history of insulin-dependent diabetes presents after accidentally taking too much short acting insulin, approximately 45 units in total. History was obtained interactive discussion with patient, EMS. On arrival, patient is [afebrile, hemodynamically stable, satting appropriately, alert, oriented x4, GCS 15], moving all extremities spontaneously. Full physical exam performed and significant for no significant physical exam abnormalities. On arrival her Dexcom and fingerstick blood sugars are consistent. Was in the 200s at home, has been trending down. Differential includes but is not limited to accidental insulin overdose, hypoglycemia. Patient placed in ED observation status at 2:15 AM for further evaluation and reassessment of blood sugar. Blood work was considered, but deemed unnecessary due to history and exam. Given patient history, exam and workup, patient's presentation most likely represents accidental insulin overdose. We monitored the patient and noted that her insulin sugar curve on the Dexcom flattened and remained flat at a blood sugar of approximately 115. She remains asymptomatic. Given this, I feel that she is appropriate for discharge at this time. Total time in observation 1 hour. I had interactive discussion with patient regarding her presentation. She was discharged in stable condition. Return precautions given. Procedures Risk/Benefits of Procedure(s) Were Explained: Yes Critical Care Critical Care Time Critical Care Time: No
[2024-03-09 01:30] VITALS: BP 111/69; PULSE 79; O2SAT 96
--- NOTE | 2024-03-09 01:38 | PC.NURSE ---
FSBS 116. Patient offered cookies at this time in case glucose drops further.
--- NOTE | 2024-03-09 01:41 | PC.NURSE ---
at 0130 dexcom reading 116.
[2024-03-09 02:27] VITALS: BP 121/71; PULSE 78; RESP 16; TEMP 37.1; O2SAT 96
== END 2024-03-09 02:31 | disposition home or self-care (01) ==
PROVIDERS: Emergency Provider Emergency Medicine; PCP Nurse Practitioner Family
DX: T38.3X1A Poisoning by insulin and oral hypoglycemic [antidiabetic] drugs, accidental (unintentional), initial encounter (principal); E11.9 Type 2 diabetes mellitus without complications; F17.210 Nicotine dependence, cigarettes, uncomplicated; Z79.4 Long term (current) use of insulin; Z79.84 Long term (current) use of oral hypoglycemic drugs
CPT/HCPCS: 99282

== ENCOUNTER 2024-04-01 14:38 | Outpatient (CLI) | payer MEDICAID, SELFPAY ==
--- NOTE | 2024-04-01 14:42 | CT_ITS ---
FINAL REPORT TECHNIQUE: Noncontrast exam CLINICAL HISTORY: PERSISTENT HEADACHES COMPARISON: None FINDINGS: CT HEAD WITHOUT CONTRAST: No abnormal density is seen. Ventricles are normal. There is no hemorrhage. No mass effect is seen. Bone windows show no evidence of fracture. IMPRESSION: No acute findings Reviewed, Interpreted and Dictated by Samara Randolph MD Transcribed by Ольга Zafar Authenticated and [facility]
== END 2024-04-01 23:59 | disposition home or self-care (01) ==
LOC: RAD 14:39
PROVIDERS: PCP Nurse Practitioner Family; Visit Provider Nurse Practitioner Family
DX: G44.52 New daily persistent headache (NDPH) (principal)
CPT/HCPCS: 70450

== ENCOUNTER 2024-09-30 14:00 | Outpatient (RCR) | payer MEDICAID, SELFPAY | END 2024-09-30 23:59 | disposition home or self-care (01) | LOC: PT 14:00 | PROVIDERS: PCP Nurse Practitioner Family; Visit Provider Nurse Practitioner Family | DX: M54.16 Radiculopathy, lumbar region (principal) | CPT/HCPCS: 20560; 97110; 97140; 97163; 97530 ==

== ENCOUNTER 2024-10-27 09:00 | Outpatient (RCR) | payer MEDICAID, SELFPAY | END 2024-10-27 23:59 | disposition home or self-care (01) | LOC: PT 09:00 | PROVIDERS: PCP Nurse Practitioner Family; Visit Provider Nurse Practitioner Family | DX: M54.16 Radiculopathy, lumbar region (principal) | CPT/HCPCS: 97110; 97164 ==

== ENCOUNTER 2025-02-12 11:01 | Emergency (ER) | payer MEDICAID, SELFPAY ==
[2025-02-12] VITALS (8 sets, daily range): BP systolic 101–115; BP diastolic 66–72; PULSE 68–76; RESP 18; TEMP 36.9–37.1; O2SAT 96–99; BMI 34.0
--- NOTE | 2025-02-12 12:03 | [facility].EDGENADL ---
Discharge Plan Disposition Patient Disposition: Home, Self-Care Condition: Good Prescriptions Prescriptions: New cefdinir 300 mg capsule 300 mg PO BID 5 Days Qty: 10 0RF No Action hydrochlorothiazide 25 mg tablet 25 mg PO DAILY 30 Days Qty: 30 Patient Comments: TAKE 1 TABLET ONCE A DAY duloxetine 60 mg capsule,delayed release(DR/EC) 60 mg PO DAILY 30 Days Qty: 60 Patient Comments: TAKE 1 CAPSULE 2 TIMES A DAY aspirin 81 mg tablet,delayed release (DR/EC) 81 mg PO DAILY 30 Days Qty: 30 Patient Comments: TAKE 1 TABLET ONCE A DAY fenofibrate nanocrystallized 145 mg tablet 145 mg PO DAILY 30 Days Qty: 30 Patient Comments: TAKE 1 TABLET ONCE A DAY omeprazole 40 mg capsule,delayed release(DR/EC) 40 mg PO DAILY Qty: 30 Patient Comments: TAKE 1 CAPSULE ONCE A DAY cyclobenzaprine 10 mg tablet 10 mg PO TID PRN (Reason: pain) Qty: 90 Patient Comments: TAKE 1 TABLET 3 TIMES A DAY Linzess 290 mcg capsule PO DAILY PRN Patient Comments: TAKE 1 CAPSULE 1 TIME EACH DAY (DME) pen needle, diabetic [BD Ultra-Fine Jazlyn Pen Needle] 32 gauge x 5/32 needle See Rx Instructions .ROUTE .MEDSUPPLY Qty: 1200 Patient Comments: USE TO INJECT INSULIN 4 TIMES EACH DAY Rx Instructions: As directed Januvia 50 mg tablet PO DAILY Patient Comments: TAKE 1 TABLET 1 TIME EACH DAY rosuvastatin 20 mg tablet PO DAILY Patient Comments: TAKE 1 TABLET 1 TIME EACH DAY hydroxyzine HCl 25 mg tablet PO ONCE Patient Comments: TAKE 1 TABLET 1 TIME EACH DAY (DME) OneTouch Ultra Test Strip See Rx Instructions .ROUTE .MEDSUPPLY Qty: 10 Patient Comments: USE TO CHECK BLOOD SUGAR 3 TIMES EACH DAY Rx Instructions: As directed lamotrigine 150 mg tablet PO DAILY Patient Comments: TAKE 1 TABLET 1 TIME EACH DAY IN THE MORNING (DME) Dexcom G7 Sensor Device See Rx Instructions .ROUTE .MEDSUPPLY Qty: 1 Patient Comments: USE TO MONITOR BLOOD SUGAR. REPLACE EVERY 10 DAYS Rx Instructions: As directed insulin lispro 100 unit/mL insulin pen SQ DAILY Patient Comments: INJECT 6 UNITS UNDER THE SKIN 3 TIMES EACH DAY BEFORE MEALS. FOR EACH 30 UNITS THAT BLOOD SUGAR IS OVER 150, INCREASE DOSE BY 1 UNIT. DO NOT INJECT MORE THAN 60 UNITS IN 1 DAY. gabapentin 800 mg tablet PO DAILY Patient Comments: TAKE 1 TABLET 4 TIMES EACH DAY insulin glargine [Lantus Solostar U-100 Insulin] 100 unit/mL (3 mL) insulin pen SQ DAILY Patient Comments: INJECT 34 UNITS UNDER THE SKIN 1 TIME EACH DAY IN THE EVENING PLUS TITRATION ADVISED. MAX DOSE OF 50 UNITS A DAY. (DME) Dexcom G7 Quantitative Analyst Developer Misc See Rx Instructions .ROUTE .MEDSUPPLY Qty: 1 Patient Comments: USE TO MONITOR BLOOD SUGAR DIRECTED Rx Instructions: As directed (DME) Dexcom G6 Transmitter Device See Rx Instructions .ROUTE .MEDSUPPLY Qty: 1 Patient Comments: USU TO MEASURE BLOOD SUGAR DIRECTED. REPLACE AFTER 90 DAYS. Rx Instructions: As directed nicotine 21 mg/24 hr patch 24 hour 1 patch topical DAILY Patient Comments: APPLY 1 PATCH ONTO THE SKIN 1 TIME EACH DAY DIRECTED. REMOVE BEFORE APPLYING NEXT PATCH. ibuprofen 800 mg tablet PO PRN Patient Comments: TAKE 1 TABLET 3 TIMES EACH DAY WITH FOOD NEEDED FOR PAIN Clenpiq 10 mg-3.5 gram- 12 gram/175 mL solution 175 ml PO DAILY Qty: 350 0RF Rx Instructions: take first dose at 5-9PM evening before colonoscopy; 2nd dose the next day approximately 5 hrs before colonoscopy insulin glargine U-300 conc 300 UNIT/ML insulin pen 8 units SQ BID 30 Days Qty: 1 0RF glucagon HCl 1 MG recon soln 1 mg IJ NEEDED PRN (Reason: Blood Sugar - Low) Qty: 1 0RF Rx Instructions: Use as directed for hypoglycemic emergency. Referrals Follow up/Referrals: Campbell Cervantes II, MD [Staff Physician] - See instructions (Ascites and NEGRETE) Jessica Man [Primary Care Provider] - See instructions Activity Restrictions/Add. Instructions Additional Instructions/Restrictions: I have sent in a prescription to your pharmacy for an antibiotic for your urinary tract infection. Please take it till its gone. I have also referred you to gastroenterology for further workup and management of the fluid in your abdomen as well as your liver disease. Please call and make your appointment. If you have any continued new or worsening signs or symptoms follow-up with your PCP return to the ER as needed. Clinical Impressions Clinical Impression: Urinary tract infection Qualifiers: Urinary tract infection type: site unspecified Hematuria presence: with hematuria Qualified Code(s): N39.0 - Urinary tract infection, site not specified Cirrhosis Qualifiers: Hepatic cirrhosis type: unspecified hepatic cirrhosis Ascites presence: with ascites Qualified Code(s): K74.60 - Unspecified cirrhosis of liver Stand Alone Forms Stand Alone Forms: Work/School Release Instructions Patient Instructions: DI for Acute Abdominal Pain Print Language Print Language: Ecuadorean Discharge ED Provider: Jesse Pike General Adult HPI <ZARINA Krueger - Last Filed: 02/12/25 14:57> General Chief complaint: Abdominal Pain Stated complaint: Ref. NGUYỄN Man (Lower abd. pain, constipated) Time Seen by Provider: 02/12/25 12:03 Mode of Arrival: Ambulatory Source of Information: Patient Description of Symptoms (Recalled from ER Triage Doc. by RN): Pt c/o abdominal pain for approx 2 weeks which she states gets worse after standing for longer than 15 min. Pt states she has also had constipation and nausea which began at onset of symptoms. Pt last reported BM was this date and passed small hard stool. Pt reports 8/10 pain. History of Present Illness HPI narrative: Patient presents for evaluation of initially abdominal pain and constipation. Patient states that she has had 2 weeks of lower quadrant abdominal pain and initially constipation. She saw her PCP who diagnosed her with constipation via plain film x-ray and ordered a bowel regimen. Patient was diligent with the bowel regimen and ultimately was able to start having bowel movements but the pain did not dissipate. Patient contacted her PCP who recommended she come to the ER for further evaluation. Patient denies nausea vomiting chest pain shortness of breath fever chills hemoptysis hematochezia melena hematemesis hematuria. Related Data Home Medications ?Medication ?Instructions ?Recorded ?Confirmed aspirin 81 mg tablet,delayed 81 mg PO DAILY preventitive 30 01/19/19 02/25/24 release days #30 tabs duloxetine 60 mg capsule,delayed 60 mg PO DAILY Nausea & vomiting 01/19/19 02/25/24 release 30 days #60 caps fenofibrate nanocrystallized 145 145 mg PO DAILY Cholesterol 30 01/19/19 02/25/24 mg tablet days #30 tabs hydrochlorothiazide 25 mg tablet 25 mg PO DAILY Fluid 30 days #30 01/19/19 02/25/24 tabs cyclobenzaprine 10 mg tablet 10 mg PO TID PRN pain #90 tabs 05/27/19 02/25/24 omeprazole 40 mg capsule,delayed 40 mg PO DAILY stomach #30 caps 05/27/19 02/25/24 release blood sugar diagnostic (OneTouch #10 ea 02/17/24 02/25/24 Ultra Test strips) blood-glucose sensor (Dexcom G7 #1 ea 02/17/24 02/25/24 Sensor device) blood-glucose transmitter (Dexcom #1 ea 02/17/24 02/25/24 G6 Transmitter device) blood-glucose,automotive tire tester,cont #1 ea 02/17/24 02/25/24 (Dexcom G7 Quantitative Analyst Developer) gabapentin 800 mg tablet mg PO DAILY 02/17/24 02/25/24 hydroxyzine HCl 25 mg tablet mg PO ONCE 02/17/24 02/25/24 ibuprofen 800 mg tablet mg PO PRN 02/17/24 02/25/24 insulin glargine 100 unit/mL (3 unit SQ DAILY 02/17/24 02/25/24 mL) subcutaneous pen (Lantus Solostar U-100 Insulin) insulin lispro 100 unit/mL SQ DAILY 02/17/24 02/25/24 subcutaneous pen lamotrigine 150 mg tablet mg PO DAILY 02/17/24 02/25/24 linaclotide 290 mcg capsule mcg PO DAILY PRN 02/17/24 02/25/24 (Linzess) nicotine 21 mg/24 hr daily 1 patch topical DAILY 02/17/24 02/25/24 transdermal patch pen needle, diabetic 32 gauge x #1,200 ea 02/17/24 02/25/2432 (BD Ultra-Fine Jazlyn Pen Needle) rosuvastatin 20 mg tablet mg PO DAILY 02/17/24 02/25/24 sitagliptin phosphate 50 mg tablet mg PO DAILY 02/17/24 02/25/24 (Januvia) Previous Rx's ?Medication ?Instructions ?Recorded glucagon HCl 1 mg solution for 1 mg IJ NEEDED PRN Blood Sugar 10/28/21 injection - Low #1 kit insulin glargine U-300 conc 300 8 units SQ BID 30 days #1 pen 10/28/21 unit/mL (1.5 mL) subcutaneous pen needle sod picosulf 10 mg-magnes 3.5 175 ml PO DAILY 2 doses #350 mL 05/05/24 gram-citric 12 gram/175 mL oral solution (Clenpiq) cefdinir 300 mg capsule 300 mg PO BID 5 days #10 caps 02/12/25 Allergies Allergy/AdvReac Type Severity Reaction Status Date / Time erythromycin base Allergy Mild Other Verified 02/12/25 11:43 empagliflozin (From Allergy Other Verified 02/12/25 11:43 Jardiance) [facility] <ZARINA Krueger - Last Filed: 02/12/25 14:57> [facility] Disclaimer: The information contained in this section may have been updated after the patient was seen, as this information can be updated by other users. Medical History Esophagus disorder Surgical History History of unilateral salpingectomy Right History of cholecystectomy Family History Other Asthma Cancer Coronary artery disease Diabetes FHx: mental illness Heart attack Hypertension Kidney disease Stroke Social History Smoking Status: Current every day smoker alcohol intake: never substance use type: denies use current occupational status: other Travel in the last 8 weeks?: None caffeine: Yes Have you lived/traveled outside [place] in past 30 days?: No Contact w/someone who lives/traveled outside US past 30 days?: No Exposure to someone with infectious disease in past 14 days?: No Do you have a fever (greater than 100.4 F or 38 C)?: No Have you tested positive for COVID-19?: No Exposed to someone with COVID-19 in past 14 days?: No Do you have a sore throat?: No Do you have a cough?: No Do you have any weakness?: No Do you have any diarrhea?: No Are you experiencing any unusual bleeding?: No Do you have any muscle aches/pain?: No Do you have any abdominal pain?: Yes Are you experiencing loss of taste or smell?: No Other Medical History Have you received the Flu Vaccine for this season: No Have you received the Pneumonia Vaccine: Yes <ZARINA Krueger - Last Filed: 02/12/25 14:57> ROS Obtained: Yes Systems reviewed as appropriate & no additional complaints except as documented Physical Exam <ZARINA Krueger - Last Filed: 02/12/25 14:57> General General appearance: alert and in no apparent distress Respiratory Respiratory exam: Present normal lung sounds bilaterally Cardiovascular Cardiovascular exam: Present regular rate Neurological Exam Neurological exam: Present alert and oriented X3 Medical Decision Making <ZARINA Krueger - Last Filed: 02/12/25 14:57> Medical Records Medical records reviewed: Yes I reviewed the patient's medical records. Screening: Per USPSTF and CDC recommendations, given the prevalence of disease in our region, it is our hospital?s policy to screen for HIV and viral Hepatitis for all patients aged 18 and over and those with ongoing risk factors. Helder Inquiry Pt receiving controlled substance: No Vital Signs: 02/12/25 11:12 02/12/25 11:30 02/12/25 12:00 Temperature 98.5 F Temperature Source Oral Pulse Rate 75 76 Pulse Rate [Left] 76 Respiratory Rate 18 Blood Pressure 101/72 L 104/67 L Blood Pressure [Right Arm] 105/67 L Blood Pressure Mean [Right Arm] 79 Blood Pressure Source [Right Arm] Automatic Cuff 02 Sat by Pulse Oximetry 98 98 96 Oxygen Delivery Method Room Air 02/12/25 12:30 02/12/25 13:00 02/12/25 13:28 Temperature Temperature Source Pulse Rate 74 69 68 Pulse Rate [Left] Respiratory Rate Blood Pressure 106/71 L 115/68 109/66 L Blood Pressure [Right Arm] Blood Pressure Mean [Right Arm] Blood Pressure Source [Right Arm] 02 Sat by Pulse Oximetry 96 99 99 Oxygen Delivery Method 02/12/25 14:00 Temperature Temperature Source Pulse Rate 69 Pulse Rate [Left] Respiratory Rate Blood Pressure 108/72 L Blood Pressure [Right Arm] Blood Pressure Mean [Right Arm] Blood Pressure Source [Right Arm] 02 Sat by Pulse Oximetry 98 Oxygen Delivery Method Lab Data Lab results reviewed: Yes I reviewed the patient's lab results. Lab Results 02/12/25 11:07: Urine Color [place], Urine Appearance Turbid, Urine pH 5.5, Ur Specific Royal >= 1.030, Urine Protein Trace, Urine Glucose (UA) Negative, Urine Ketones Negative, Urine Blood Negative, Urine Nitrate Positive A, Urine Bilirubin 1+ A, Urine Urobilinogen 1.0, Ur Leukocyte Esterase Negative, Urine RBC None, Urine WBC None, Ur Squamous Epith Cells Occasional, Amorphous Sediment 2+, Urine Bacteria 4+ 02/12/25 11:14: WBC 4.6 L, RBC 3.71 L, Hgb 9.7 L, Hct 30.1 L, MCV 81.1, MCH 26.1 L, MCHC 32.2, RDW 15.4, Plt Count 167, MPV 9.9, Neut % (Auto) 75.1, Lymph % (Auto) 10.4, Edwards % (Auto) 8.9, Eos % (Auto) 5.0, Baso % (Auto) 0.4, Neut # (Auto) 3.5, Lymph # (Auto) 0.5 L, Edwards # (Auto) 0.4, Eos # (Auto) 0.2, Baso # (Auto) 0.0, Total Counted 100, Neutrophils % (Manual) 78 H, Lymphocytes % (Manual) 12, Monocytes % (Manual) 6, Eosinophils % (Manual) 4 H, Platelet Estimate Normal, Hypochromasia 1+, PT 13.0 H, INR 1.18 H, APTT 33.3 H, Sodium 136, Potassium 3.7, Chloride 106, Carbon Dioxide 29, Anion Gap 4.7 L, BUN 24 H, Creatinine 1.10 H, Estimated Creat Clear 94, Estimated GFR 52 L, Est GFR ( Amer) 63, Glucose 97, Calcium 8.3 L, Magnesium 1.9, Total Bilirubin 1.9 H, AST 64 H, ALT 19, Alkaline Phosphatase 114, Total Protein 7.2, Albumin 3.1 L, Globulin 4.1 H, Albumin/Globulin Ratio 0.8 L, Lipase 94, Procalcitonin 0.563, HCV Ab SCOTT w/Rflx PCR Qn Negative, HIV Ag/Ab Combo Qual Negative 02/12/25 13:38: Fluid Source Peritoneal fluid, Fluid Appearance Hazy, Fluid RBC (Auto) 1000, Fld Tot Nucleated Cell 433, Fld Polynuclear WBCs % 21, Fld Mononuclear WBCs % 79 02/12/25 11:14 02/12/25 11:14 Orders (Tests/Meds): ED MEDICATIONS Generic Name Dose Route Start Last Admin Trade Name Freq PRN Reason Stop Dose Admin Sodium Chloride 10 ml 02/12/25 12:41 02/12/25 12:42 Sodium Chloride 0.9% 10ml Syr (Rad Only) IV 03/14/25 12:40 10 ml NEEDED PRN Administration Maintain IV Site Discontinued Medications Generic Name Dose Route Start Last Admin Trade Name Freq PRN Reason Stop Dose Admin Cefdinir 300 mg 02/12/25 12:54 02/12/25 12:58 Cefdinir 300mg Capsule PO 02/12/25 12:55 300 mg ONCE ONE Administration Iopamidol 75 ml 02/12/25 12:41 02/12/25 12:42 Iopamidol-370 (76%);100ml Bottle IV 02/12/25 12:42 75 ml ONCE ONE Administration Ketorolac Tromethamine 15 mg 02/12/25 12:08 02/12/25 12:16 Ketorolac 30mg/Ml Vial IV 02/12/25 12:09 15 mg ONCE ONE Administration Lidocaine HCl 20 ml 02/12/25 12:55 02/12/25 13:04 Lidocaine 1% 20ml Mdv IJ 02/12/25 12:56 20 ml ONCE ONE Administration Ondansetron HCl 4 mg 02/12/25 12:08 02/12/25 12:16 Ondansetron 4mg/2ml Vial IV 02/12/25 12:09 4 mg ONCE ONE Administration ORDERS Category Date Time Status CT abdomen pelvis w con Stat Cat Scan 02/12/25 12:08 Completed POCUS Point of Care (ER Only) Stat Exams 02/12/25 12:44 Completed Ammonia Stat Lab 02/12/25 14:50 Received Body Fluid: Cell Count w/ Diff Stat Lab 02/12/25 13:38 Completed CBC w/Auto Diff [Complete Blood Count Auto Diff] Stat Lab 02/12/25 11:14 Completed CMP [Comprehensive Metabolic Panel] Stat Lab 02/12/25 11:14 Completed Cytology Routine Lab 02/12/25 12:55 Ordered HIV Combo Stat Lab 02/12/25 11:14 Completed Hepatitis C Ab Qual. W/ RFX Stat Lab 02/12/25 11:14 Completed INR [Prothrombin Time INR] Stat Lab 02/12/25 11:14 Completed Lipase Stat Lab 02/12/25 11:14 Completed Magnesium Stat Lab 02/12/25 11:14 Completed PTT [Activated Partial Thrombo Time] Stat Lab 02/12/25 11:14 Completed Procalcitonin Stat Lab 02/12/25 11:14 Completed UA [Urinalysis and Microscopic] Stat Lab 02/12/25 11:07 Completed Body Fluid Cult & Gram Stain Stat Micro 02/12/25 13:38 Received Urine Culture Stat Micro 02/12/25 11:07 Received Tissue Perfus/Sepsis Re-Eval Sepsis Re-Evaluation Performed: Yes Date Performed: 02/12/25 Time Performed: 14:55 Medical Decision Narrative: In summary patient is a 54-year-old female who presents to the emergency department for evaluation of lower abdominal pain and self-reported constipation. Patient is hemodynamically stable upon arrival, afebrile sinus rhythm on the bedside monitor. Physical exam is remarkable for a soft abdomen with mild bilateral lower quadrant discomfort on palpation but there is no rebound or guarding or rigidity. Bowel sounds normal active.. Differential diagnosis includes constipation versus colitis versus enteritis versus diverticulitis versus bowel obstruction etc. Initial workup will be conducted with hematologic labs urinalysis CT scan abdomen pelvis with contrast. Initial interventions include Tylenol Toradol Zofran. Initial workup reviewed by me and her hematologic labs are significant for a white count of 4.6 hemoglobin and hematocrit 9.7 and 30.1 respectively with an absolute neutrophil count of 3.5, chemistry significant for a anion gap of 4.7 BUN of 24 creatinine 1.1 GFR 52 calcium 8.3 with an albumin of 3.1 total bilirubin is 1.9 AST is 64 ALT is 19 alk phos is 114 procalcitonin is 0.563 urinalysis shows it is nitrite positive leukocyte Estrace negative and microscopic exam shows no red blood cells no white cells occasional squamous epithelial cells and 4+ bacteria. My informal interpretation of her CT scan abdomen pelvis reveals large volume ascites, hepatosplenomegaly, and thickened duodenum prior to radiology read. Please see final read for formal interpretation. Upon repeat evaluation I queried the patient about her liver history and she stated that approximately a decade ago she was told that she had alpha-1 antitrypsin deficiency that was causing cirrhosis but has never had or been told that she has had ascites before. She is a nondrinker.. Given this Dr. Salcido performed a diagnostic tap. Please see his procedure report for details. Differential shows that her PMNs are 21 thus patient is appropriate for discharge with a prescription for Omnicef for her urinary tract infection with versus given here and referral to gastroenterology for further workup of her cirrhosis and ascites. Patient patient has any continued new or worsening signs or symptoms follow-up with her PCP return to the ER as needed. <Jesse Pike MD - Last Filed: 02/12/25 15:00> Vital Signs: 02/12/25 11:12 02/12/25 11:30 02/12/25 12:00 Temperature 98.5 F Temperature Source Oral Pulse Rate 75 76 Pulse Rate [Left] 76 Respiratory Rate 18 Blood Pressure 101/72 L 104/67 L Blood Pressure [Right Arm] 105/67 L Blood Pressure Mean [Right Arm] 79 Blood Pressure Source [Right Arm] Automatic Cuff 02 Sat by Pulse Oximetry 98 98 96 Oxygen Delivery Method Room Air 02/12/25 12:30 02/12/25 13:00 02/12/25 13:28 Temperature Temperature Source Pulse Rate 74 69 68 Pulse Rate [Left] Respiratory Rate Blood Pressure 106/71 L 115/68 109/66 L Blood Pressure [Right Arm] Blood Pressure Mean [Right Arm] Blood Pressure Source [Right Arm] 02 Sat by Pulse Oximetry 96 99 99 Oxygen Delivery Method 02/12/25 14:00 Temperature Temperature Source Pulse Rate 69 Pulse Rate [Left] Respiratory Rate Blood Pressure 108/72 L Blood Pressure [Right Arm] Blood Pressure Mean [Right Arm] Blood Pressure Source [Right Arm] 02 Sat by Pulse Oximetry 98 Oxygen Delivery Method Lab Data Lab Results 02/12/25 11:07: Urine Color [place], Urine Appearance Turbid, Urine pH 5.5, Ur Specific Royal >= 1.030, Urine Protein Trace, Urine Glucose (UA) Negative, Urine Ketones Negative, Urine Blood Negative, Urine Nitrate Positive A, Urine Bilirubin 1+ A, Urine Urobilinogen 1.0, Ur Leukocyte Esterase Negative, Urine RBC None, Urine WBC None, Ur Squamous Epith Cells Occasional, Amorphous Sediment 2+, Urine Bacteria 4+ 02/12/25 11:14: WBC 4.6 L, RBC 3.71 L, Hgb 9.7 L, Hct 30.1 L, MCV 81.1, MCH 26.1 L, MCHC 32.2, RDW 15.4, Plt Count 167, MPV 9.9, Neut % (Auto) 75.1, Lymph % (Auto) 10.4, Edwards % (Auto) 8.9, Eos % (Auto) 5.0, Baso % (Auto) 0.4, Neut # (Auto) 3.5, Lymph # (Auto) 0.5 L, Edwards # (Auto) 0.4, Eos # (Auto) 0.2, Baso # (Auto) 0.0, Total Counted 100, Neutrophils % (Manual) 78 H, Lymphocytes % (Manual) 12, Monocytes % (Manual) 6, Eosinophils % (Manual) 4 H, Platelet Estimate Normal, Hypochromasia 1+, PT 13.0 H, INR 1.18 H, APTT 33.3 H, Sodium 136, Potassium 3.7, Chloride 106, Carbon Dioxide 29, Anion Gap 4.7 L, BUN 24 H, Creatinine 1.10 H, Estimated Creat Clear 94, Estimated GFR 52 L, Est GFR ( Amer) 63, Glucose 97, Calcium 8.3 L, Magnesium 1.9, Total Bilirubin 1.9 H, AST 64 H, ALT 19, Alkaline Phosphatase 114, Total Protein 7.2, Albumin 3.1 L, Globulin 4.1 H, Albumin/Globulin Ratio 0.8 L, Lipase 94, Procalcitonin 0.563, HCV Ab SCOTT w/Rflx PCR Qn Negative, HIV Ag/Ab Combo Qual Negative 02/12/25 13:38: Fluid Source Peritoneal fluid, Fluid Appearance Hazy, Fluid RBC (Auto) 1000, Fld Tot Nucleated Cell 433, Fld Polynuclear WBCs % 21, Fld Mononuclear WBCs % 79 Orders (Tests/Meds): ED MEDICATIONS Generic Name Dose Route Start Last Admin Trade Name Freq PRN Reason Stop Dose Admin Sodium Chloride 10 ml 02/12/25 12:41 02/12/25 12:42 Sodium Chloride 0.9% 10ml Syr (Rad Only) IV 03/14/25 12:40 10 ml NEEDED PRN Administration Maintain IV Site Discontinued Medications Generic Name Dose Route Start Last Admin Trade Name Freq PRN Reason Stop Dose Admin Cefdinir 300 mg 02/12/25 12:54 02/12/25 12:58 Cefdinir 300mg Capsule PO 02/12/25 12:55 300 mg ONCE ONE Administration Iopamidol 75 ml 02/12/25 12:41 02/12/25 12:42 Iopamidol-370 (76%);100ml Bottle IV 02/12/25 12:42 75 ml ONCE ONE Administration Ketorolac Tromethamine 15 mg 02/12/25 12:08 02/12/25 12:16 Ketorolac 30mg/Ml Vial IV 02/12/25 12:09 15 mg ONCE ONE Administration Lidocaine HCl 20 ml 02/12/25 12:55 02/12/25 13:04 Lidocaine 1% 20ml Mdv IJ 02/12/25 12:56 20 ml ONCE ONE Administration Ondansetron HCl 4 mg 02/12/25 12:08 02/12/25 12:16 Ondansetron 4mg/2ml Vial IV 02/12/25 12:09 4 mg ONCE ONE Administration ORDERS Category Date Time Status CT abdomen pelvis w con Stat Cat Scan 02/12/25 12:08 Completed POCUS Point of Care (ER Only) Stat Exams 02/12/25 12:44 Completed Ammonia Stat Lab 02/12/25 14:50 Received Body Fluid: Cell Count w/ Diff Stat Lab 02/12/25 13:38 Completed CBC w/Auto Diff [Complete Blood Count Auto Diff] Stat Lab 02/12/25 11:14 Completed CMP [Comprehensive Metabolic Panel] Stat Lab 02/12/25 11:14 Completed Cytology Routine Lab 02/12/25 12:55 Ordered HIV Combo Stat Lab 02/12/25 11:14 Completed Hepatitis C Ab Qual. W/ RFX Stat Lab 02/12/25 11:14 Completed INR [Prothrombin Time INR] Stat Lab 02/12/25 11:14 Completed Lipase Stat Lab 02/12/25 11:14 Completed Magnesium Stat Lab 02/12/25 11:14 Completed PTT [Activated Partial Thrombo Time] Stat Lab 02/12/25 11:14 Completed Procalcitonin Stat Lab 02/12/25 11:14 Completed UA [Urinalysis and Microscopic] Stat Lab 02/12/25 11:07 Completed Body Fluid Cult & Gram Stain Stat Micro 02/12/25 13:38 Received Urine Culture Stat Micro 02/12/25 11:07 Received Medical Decision Narrative: In summary patient is a 54-year-old female who presents to the emergency department for evaluation of lower abdominal pain and self-reported constipation. Patient is hemodynamically stable upon arrival, afebrile sinus rhythm on the bedside monitor. Physical exam is remarkable for a soft abdomen with mild bilateral lower quadrant discomfort on palpation but there is no rebound or guarding or rigidity. Bowel sounds normal active.. Differential diagnosis includes constipation versus colitis versus enteritis versus diverticulitis versus bowel obstruction etc. Initial workup will be conducted with hematologic labs urinalysis CT scan abdomen pelvis with contrast. Initial interventions include Tylenol Toradol Zofran. Initial workup reviewed by me and her hematologic labs are significant for a white count of 4.6 hemoglobin and hematocrit 9.7 and 30.1 respectively with an absolute neutrophil count of 3.5, chemistry significant for a anion gap of 4.7 BUN of 24 creatinine 1.1 GFR 52 calcium 8.3 with an albumin of 3.1 total bilirubin is 1.9 AST is 64 ALT is 19 alk phos is 114 procalcitonin is 0.563 urinalysis shows it is nitrite positive leukocyte Estrace negative and microscopic exam shows no red blood cells no white cells occasional squamous epithelial cells and 4+ bacteria. My informal interpretation of her CT scan abdomen pelvis reveals large volume ascites, hepatosplenomegaly, and thickened duodenum prior to radiology read. Please see final read for formal interpretation. Upon repeat evaluation I queried the patient about her liver history and she stated that approximately a decade ago she was told that she had alpha-1 antitrypsin deficiency that was causing cirrhosis but has never had or been told that she has had ascites before. She is a nondrinker.. Given this Dr. Salcido performed a diagnostic tap. Please see his procedure report for details. Differential shows that her PMNs are 21 thus patient is appropriate for discharge with a prescription for Omnicef for her urinary tract infection with versus given here and referral to gastroenterology for further workup of her cirrhosis and ascites. Patient patient has any continued new or worsening signs or symptoms follow-up with her PCP return to the ER as needed. I was consulted by the BLAYNE, and we discussed the complexity of the problems being addressed. I approved the treatment and management plan for this patient's care in the Emergency Department, thus performing a substantive portion of the medical decision making. Jesse Pike MD Procedures <Jesse Pike MD - Last Filed: 02/12/25 15:00> Paracentesis Time Out Performed: Yes Local Anesthetic: lidocaine 1% Amount of anesthesia used (mL): 10 Fluid: cloudy and sent to lab for analysis Post Procedure Exam: awake, alert, normal BP and normal HR Patient Tolerated Procedure: well and no complications Complications: none (two separate attempts prior to fluid secondary to inadequate needle length. RLQ approach) Critical Care <ZARINA Krueger - Last Filed: 02/12/25 14:57> Critical Care Time Critical Care Time: Yes Attestation: On 02/12/25, the high probability of a clinically significant, sudden or life threatening deterioration of the following system(s) required my full and direct attention, intervention and personal management. The time I documented below is in addition to time spent performing reported procedures but includes the following listed in this critical care notation. Total Time Total Critical Care Time: 35
--- NOTE | 2025-02-12 12:08 | CT_ITS ---
FINAL REPORT TECHNIQUE: After the administration of intravenous contrast, axial images were obtained through the abdomen and pelvis by computed tomography. The study was performed with techniques to keep radiation dose as low as reasonably achievable, (ALARA). Individual dose reduction techniques using automated exposure control or adjustment of mA and/or kV according to the patient's size were employed. CLINICAL HISTORY: Bilateral lower abdominal pain, recent seen a pcp for constipation. COMPARISON: None FINDINGS: Abdomen: A moderate left pleural effusion is present. A large amount of ascites is present in the abdomen and pelvis. The liver parenchyma is nodular, consistent with cirrhosis. The liver measures up to 21 cm in length. The gallbladder has been surgically resected. The spleen is markedly enlarged, measuring 19 cm in length. The pancreas, adrenals and kidneys appear unremarkable. The aorta is normal in caliber. There is wall thickening in the 2nd and 3rd portions of the duodenum, which is nonspecific. Pelvis: The appendix is not identified. An umbilical hernia is present which contains ascites. The urinary bladder is unremarkable. There is severe degenerative disc disease at the L5-S1 level, with severe bilateral neural foraminal narrowing. IMPRESSION: A large amount of ascites is present in the abdomen and pelvis. The liver parenchyma is nodular, consistent with cirrhosis. Hepatosplenomegaly is present. There is wall thickening of the 2nd and 3rd portions of the duodenum, which is nonspecific but may be secondary to duodenitis. Severe degenerative disc disease at the L5-S1 level with severe bilateral neural foraminal narrowing. Reviewed, Interpreted and Dictated by Craig Enamorado MD Transcribed by Ольга Zafar Authenticated and [facility]
[2025-02-12 12:14] LABS: Basophils % 0.4 % (0.1-2.0); Eosinophils # 0.2 Kmm3 (0.0-0.4); Hematocrit 30.1 % (37.0-47.0); Hemoglobin 9.7 g/dL (12.2-16.2); Lymphocytes # 0.5 K/mm3 (0.7-4.5); Lymphocytes % 10.4 % (10-50); Mean Corpuscular HGB Conc 32.2 g/dL (31.8-35.4); Mean Corpuscular Hemoglobin 26.1 pg (27.0-31.2); Mean Corpuscular Volume 81.1 fl (81-99); Mean Platelet Volume 9.9 fl (7.4-10.4); Monocytes # 0.4 K/mm3 (0.1-1.0); Monocytes % 8.9 % (1.7-9.3); Neutrophils # 3.5 K/mm3 (1.8-7.8); Neutrophils % 75.1 % (37.0-80.0); Nucleated Red Blood Cells # 0 10^3/uL; Nucleated Red Blood Cells % 0 %; Platelet Count 167 K/mm3 (142-424); Red Blood Count 3.71 M/mm3 (4.20-5.40); Red Cell Distribution Width 15.4 % (11.5-17.5); Red Cell Distribution Width-SD 45.2 fL; White Blood Count 4.6 K/mm3 (4.8-10.8)
[2025-02-12 12:15] LABS: MANUAL DIFFERENTIAL MANUAL DIFFERENTIAL (MANUAL DIFF)
[2025-02-12] MEDS: KETOROLAC 30MG/ML VIAL 15 MG IV (12:16)
[2025-02-12] MEDS: ONDANSETRON 4MG/2ML VIAL 4 MG IV (12:16)
[2025-02-12 12:21] LABS: Microscopic, Urine URINE MICROSCOPIC (MICROSCOPIC)
[2025-02-12 12:21] LABS: Alanine Aminotransferase 19 U/L (12-78); Albumin Level 3.1 g/dl (3.5-5.0); Albumin/Globulin Ratio 0.8 (1.1-1.8); Alkaline Phosphatase 114 U/L (38-126); Anion Gap 4.7 mEq/L (5-15); Aspartate Amino Transferase 64 U/L (14-36); Bilirubin,Total 1.9 mg/dl (0.2-1.3); Blood Urea Nitrogen 24 mg/dl (7-17); Calcium 8.3 mg/dl (8.4-10.2); Carbon Dioxide 29 mmol/L (22.0-30.0); Chloride 106 mmol/L (98-107); Creatinine Clearance Estimated 94 mL/min (50-200); Estimated Glomerular Filt Rate 52 ml/min (>60); GFR (African American) 63 ML/MIN (>60); Globulin 4.1 g/dL (1.3-3.2); Glucose 97 mg/dl (74-100); Lipase 94 U/L (23-300); Magnesium 1.9 mg/dl (1.6-2.3); Potassium 3.7 mmoL/L (3.5-5.1); Sodium 136 mmol/L (136-145); Total Protein,Serum 7.2 g/dl (6.3-8.2)
[2025-02-12 12:26] LABS: Appearance,Urine TURBID (Clear); Blood, Urine Negative (Negative); Color,Urine ORANGE (Yellow); Glucose,Urine (UA) Negative (Negative); Ketones,Urine Negative (Negative); Leukocyte Esterase,Urine Negative (Negative); Nitrate,Urine POSITIVE (Negative); PH,Urine 5.5 (5.0-8.5); Protein,Urine TRACE (Negative); Specific Gravity, Urine >= 1.030 (1.005-1.030)
[2025-02-12 12:32] LABS: HIV Combo NEGATIVE (Negative)
[2025-02-12 12:37] LABS: Bilirubin,Urine 1+ (Negative)
[2025-02-12 12:37] LABS: Procalcitonin 0.563 ng/mL (0.0-2.0)
[2025-02-12 12:40] LABS: Hepatitis C Ab Qual. W/ RFX NEGATIVE (Negative)
[2025-02-12] MEDS: SODIUM CHLORIDE 0.9% 10ML SYR (RAD ONLY) 10 ML IV (12:42)
[2025-02-12] MEDS: IOPAMIDOL-370 (76%);100ML BOTTLE 75 ML IV (12:42)
[2025-02-12 12:45] LABS: Amorphous Sediment,Urine 2+ /lpf; Bacteria,Urine 4+ /lpf; Squamous Epithelial Cell,Urine Occasional #/hpf (0-5)
[2025-02-12] MEDS: CEFDINIR 300MG CAPSULE 300 MG PO (12:58)
[2025-02-12 13:01] LABS: Eosinophils % 4 % (0-3); Lymphocytes % 12 % (10-50); Monocytes % 6 % (2-9); Neutrophils % 78 % (42-76); Total Cells Counted 100
[2025-02-12 13:02] LABS: Hypochromasia 1+; Platelet Estimate Normal
[2025-02-12] MEDS: LIDOCAINE 1% 20ML MDV 20 ML IJ (13:04)
--- NOTE | 2025-02-12 13:36 | PC.NURSE ---
at bedside for diagnostic paracentesis
--- NOTE | 2025-02-12 13:45 | PC.NURSE ---
Paracentesis body fluid samples walked to the lab by Cipriano BROCK & Sonya Villarreal SRNA
[2025-02-12 13:57] LABS: Appearance,Body Fld. Hazy; Source, Body Fld. Peritoneal Fluid
[2025-02-12 13:58] LABS: RBC,Body Fluid 1000 cells/uL (< 10 X 10^3); TNC,Body Fluid 433 cells/uL (< 1000)
[2025-02-12 14:19] LABS: Mononuclear WBCs,Body Fluid 79 %; Polynuclear WBC,Body Fluid 21 %
[2025-02-12 14:31] LABS: Activated Partial Thrombo Time 33.3 seconds (22.8-30.6); INR 1.18 (0.9-1.1)
--- NOTE | 2025-02-12 14:51 | PC.NURSE ---
Greciaeint was provided a sandwhich and beverage by DELMY Urias after her dexcom read 79. Okay per ZARINA Richards
[2025-02-12 15:05] LABS: Ammonia 10 umol/L (9-30)
== END 2025-02-12 15:12 | disposition home or self-care (01) ==
PROVIDERS: Physician Assistant; Emergency Provider Emergency Medicine; PCP Nurse Practitioner Family
DX: R10.30 Lower abdominal pain, unspecified (principal); N39.0 Urinary tract infection, site not specified; K74.60 Unspecified cirrhosis of liver; Z11.59 Encounter for screening for other viral diseases; Z11.4 Encounter for screening for human immunodeficiency virus [HIV]
CPT/HCPCS: 49082; 74177; 80053; 81001; 82140; 83690; 83735; 84145; 85007; 85025; 85027; 85610; 85730; 86803; 87070; 87086; 87205; 87389; 89051; 96374; 96375; 99291; J1885; J2405; Q9967

== ENCOUNTER 2025-05-25 14:46 | Emergency (ER) | payer SELFPAY ==
--- OUTSIDE RECORDS SUMMARY | 2025-04-06 13:40 | XMS_ITS | Encounter Summary ---
Author Organization [facility] Address [address] [place] [address] Care Team Providers Care Cleaner Operator Name Role Phone Jessica Man APRN Primary Care Provider [phone] Reason for Referral * Consultation (Routine) - Authorized Specialty Diagnoses / Procedures Referred By Turner ascencio Referred To Contact Diagnoses Type 2 diabetes mellitus with hyperglycemia, without long-term current use of insulin (CMS/[facility]) Silvia Lewis APRN [address] [address] Phone: tel: fax: Referral ID Status Reason Start Date Expiration Date V isits Requested Visits Authorized [id number] Authorized 04/06/2025 10/06/2026 1 1 Reason for Visit * Reason Comments Diabetes * Consultation (Routine) - Closed Specialty Diagnoses / Procedures Referred By Turner ascencio Referred To Contact Diagnoses Type 2 diabetes mellitus with hyperglycemia, without long-term current use of insulin ([facility]/HCC) Silvia Lewis APRN [address] [address] Phone: tel: fax: Referral ID Status Reason Start Date Expiration Date Visits Re quested Visits Authorized [id number] Closed 12/21/2024 06/22/2026 1 1 Encounter Details Date Type Department Care Team (Late st Contact Info) Description 04/06/2025 1:40 PM EDT Office Visit [facility] Endocrinology [address] [place] [address] Silvia Lewis, SERVICE CORRESPONDENT [address] [place] [address] Type 2 diabetes mellitus with hyperglycemia, without long-term current use of insulin ([facility]) (Primary Dx); Hyperlipidemia, unspecified hyperlipidemia type; Neuropathy Social History Tobacco Use Types Packs/Day Years Used Date Smoking Tobacco: Former Cigarettes 0.5 30 1 2022 Smokeless Tobacco: Never Tobacco Cessation:Counseling Given: Not Answered Comments:Smoking for 30+ years Alcohol Use Standard Drinks/Week Comments No 0 (1 standard drink = 0.6 oz pur e alcohol) PHQ-2 Answer Date Recorded Patient Health Questionnaire-2 Score 1 12/21/2024 PHQ-9 Answer Date Recorded Patient Health Questionnaire-9 Score 7 12/21/2024 PHQ-2A Answer Date Recorded Patient Health Questionnaire-2 Score 0 03/13/2023 Comments Unknown Sex and Gender Information Value Date Recorded Sex Assigned at Female 03/13/2023 4:59 PM EDT Legal Sex Female 6:32 PM EDT Gender Identity Female 03/13/2023 4:59 PM EDT Sexual Orientation Straight 03/13/2023 4: 59 PM EDT documented as of this encounter Last Filed Vital Signs Vital Sign Reading Time Taken Comments Blood Pressure 105/69 04/06/2025 1:55 PM EDT Pulse 90 04/06/2025 1:55 PM EDT Temperature - - Respiratory Rate - - Oxygen Saturation - - Inhaled Oxygen Concentration - - Weight 89.7 kg (197 lb 12 oz) 04/06/2025 1:55 PM EDT Height - - Body Mass Index 29.2 12/21/2024 12:34 PM EDT documented in this encounter Miscellaneous Notes * Progress Notes - Silvia Lewis APRN - 04/06/2025 1:40 PM EDT Images from the original note were not included. Subjective Luz Theodore is a 55 y.o. female who presents for an follow up evaluation of Diabetes Mellitis Type2. Patient was diagnosed 2015. PMH: Hypertension, PTSD, Bipolar Disorder, Borderline Personality Disorder, Anxiety and Depression, Suicide attempt 06/2021-after of her Mother, Fibromyalgia, DDD, Neuropathy, VI, Osteoarthritis, Alpha 1, NEGRETE cirrhosis, Gastroparesis, aphasia, early onset dementia, TIA x 2, pancreatitis HPI -A1C: 5.1% -last A1C: 5.7% December 2024 Current treatment includes oral agents and intensive insulin injection program -Lantus 36 units HS -Humalog 12 units with meals plus correction 1:30>150 -Januvia 50 mg daily, no SE -past medications: Jardiance- allergic reaction Known diabetic complications: peripheral neuropathy, cerebrovascular disease, and gastroparesis Compliance at present is estimated to be good. -injecting insulin into the abdomen, rotates injection site, denies scar tissue noted at injection site, denies insulin leakage at injection site Cardiovascular risk factors: diabetes mellitus, dyslipidemia, hypertension, and sedentary lifestyle Is she on ADAIR inhibitor or angiotensin II receptor krystin? No on spironolactone and lasix Is she on a StatinYes on fenofibrate, no myalgias Current diet: reports decreased appetite- worse lately with ascites Current exercise: doing floor exercises Home blood sugar records: Patient's continuous glucose monitor was downloaded and reviewed with the patient during the visit CGM dates reviewed: 03/24/25-04/06/25 Interpretation: good blood glucose control demonstrated Avg B GMI: 6.3% Percentage time in range: 91% Percentage of time with low blood glucose: 2% -Date of Last Eye Exam: Jun 2024, has upcoming apt. Jun 2025, denies retinopathy -Date of Last Foot Exam: hx neuropathy- on gabapentin and duloxetine per PCP, denies history sores,sees podiatry in [facility], declines need for foot exam -Labs: Jul 2024 per primary care provider (media tab) -Interval events: reports getting paracentesis for ascites now -sees GI in [place], Dr. Guthrie -seeing a neurologist in [place] -has seen a raise miner in the past -using vape pen, using patch Luz Theodore has ketone strips: yes/no: No, no history DKA Luz Theodore has glucagon kit: yes/no: ordered, history low blood glucose What current meter are you using?: n/a What type of sensor do you have?: Dexcom G6 When was your last flu shot?: NA The following portions of the chart were reviewed this encounter and updated as appropriate: Tobacco Allergies Meds Problems Med Hx Surg Hx Fam Hx Review of Systems Constitutional: Negative. HENT: Negative. Eyes: Positive for visual disturbance. Respiratory: Negative. Cardiovascular: Negative. Gastrointestinal: Negative. Gastroparesis, ascites Endocrine: Positive for polydipsia. Negative for polyuria. See HPI Genitourinary: Negative. Musculoskeletal: Negative. Skin: Negative. Neurological: Neuropathy Psychiatric/Behavioral: Negative. Objective Physical Exam Vitals reviewed. Constitutional: General: She is not in acute distress. Appearance: Normal appearance. She is obese. She is not ill-appearing. HENT: Head: Normocephalic. Nose: Nose normal. Cardiovascular: Rate and Rhythm: Normal rate and regular rhythm. Heart sounds: Normal heart sounds. Pulmonary: Effort: Pulmonary effort is normal. Breath sounds: Normal breath sounds. Musculoskeletal: General: Normal range of motion. Cervical back: Normal range of motion. Skin: General: Skin is warm and dry. Neurological: Mental Status: She is alert and oriented to person, place, and time. Psychiatric: Mood and Affect: Mood normal. Behavior: Behavior normal. Thought Content: Thought content normal. Judgment: Judgment normal. Lab Review Glucose, Plasma (mg/dL) Date Value 06/01/2014 92 POCT Hemoglobin A1C (%) Date Value 04/06/2025 5.1 12/21/2024 5.7 09/21/2024 5.8 CO2, Plasma (mmol/L) Date Value 06/01/2014 26 BUN, Plasma (mg/dL) Date Value 06/01/2014 12 Creatinine, Plasma (mg/dL) Date Value 06/01/2014 0.82 Assessment/Plan Diabetes Mellitis Type 2, is controlled. Rx changes: reduce Lantus to 30 units in PM, continue Humalog 12 units with meals, 6 units for smaller meal, plus correction: 1:30>150, stop Januvia -F/U: 3 months #Hyperlipidemia -lipid panel Jul 2024 (media tab) -stable on statin and fibrate, no myalgias, per primary care provider -encouraged healthy diet and exercise as tolerated #Neuropathy -stable on gabapentin and duloxetine per PCP -recommend daily foot checks -recommend good blood glucose control to prevent progression #Tobacco use -recommend smoking cessation The following Diabetes education was reviewed: []SBGM to evaluate dose needs [x]Insulin coverage with carbohydrate intake []Site rotation [] Exercise impact on glucose levels []Driving safety related to diabetes []Sick day management []Ketone testing []Over treatment of hypoglycemia [x] Hypoglycemia management [x]Call-in line use []Insulin pump pros and cons []Sensor home use []Pump class offerings []Pepper phenomena []Somogyi effect [] Alcohol related to diabetes []Benefits of written records []Pre-meal Bolusing []Daily foot care [x] Healthy diet and regular exercise []Long-term complications related to poor diabetes management [] Injection timing related to changes in activity/exercise Time spent in visit does not include the time spent in reviewing CGM I personally spent a total of minutes on this encounter. This time includes face to face with patient, counseling and discussion and/or coordination of care. Electronically signed by: NGUYỄN BernardKYABRAH[facility] ENDOCRINOLOGY [address] [place]. [address] PHONE [phone] FAX: [phone] documented in this encounter Plan of Treatment Upcoming Encounters Date Type Department Care Team (Late st Contact Info) Description 07/02/2025 12:20 PM EDT Office Visit [facility] Medicine Specialties [address] [place] [address] Kira Ramirez APRN [address] [place] [id number] 07/22/2025 3:40 PM EDT [facility] [address] [place] [address] Silvia Lewis APRN [address] [place] [address] Scheduled Referrals Name Type Priority Associated Diagnoses Orde r Schedule Follow Up [facility] Outpatient Referral Routine Type 2 diabetes mellitus with hyperglycemia, without long-term current use of insulin ([facility]) Expected: 07/07/2025, Expires: 10/08/2026 documented as of this encounter Procedures Procedure Name Priority Date/Time Associated Diagnosis Comments POCT GLYCOSYLATED HEMOGLOBIN (HGB A1C) Routine 04/06/2025 2:04 PM EDT Type 2 diabetes mellitus with hyperglycemia, without long-term current use of insulin ([facility]) documented in this encounter Results * POCT glycosylated hemoglobin (Hb A1C) (04/06/2025 2:04 PM EDT) POCT Hemoglobin A1C 5.1 <5.7% Non-Diabe tic % [employer] [facility] Kit Lot Number [id number] [facility] [employer] [facility] Kit Expiration Date 01/11/2027 [facility] Blood Venous blood specimen / Unknown 04/06/2025 2:04 PM EDT Silvia Lewis SERVICE CORRESPONDENT POINT OF CARE TEST ENTER/ED IT ORDERABLES Final Result Performing Organization Address City/State/[facility] Co de Phone Number [facility] [address] [place] [address] documented in this encounter Visit Diagnoses Diagnosis Type 2 diabetes mellitus with hyperglycemia, without long-term current use of insulin ([facility])- Primary Hyperlipidemia, unspecified hyperlipidemia type Neuropathy Mononeuritis of unspecified site documented in this encounter Additional Health Concerns Assessment Noted Time PHQ-9 Depression Total Score: 7 12/22/19 25 12:39 PM EDT A fall risk assessment has been complete d for the patient 03/13/2023 9:53 AM EDT A Body Mass Index follow-up plan has been documented for the patient 04/06/2025 2:27 PM EDT documented as of this encounter Care Teams Cleaner Operator Relationship Specialty Start Date End Date Jessica Man APRN [address] [place] [address] PCP - General 02/24/21 documented as of this encounter
[2025-05-25] VITALS (8 sets, daily range): BP systolic 113–130; BP diastolic 53–84; PULSE 90–95; RESP 16–18; TEMP 36.7–36.8; O2SAT 96–100; BMI 32.1
--- NOTE | 2025-05-25 15:39 | HMH.EDGENADL ---
Discharge Plan Disposition Patient Disposition: Home, Self-Care Prescriptions Prescriptions: No Action hydrochlorothiazide 25 mg tablet 25 mg PO DAILY 30 Days Qty: 30 Patient Comments: TAKE 1 TABLET ONCE A DAY duloxetine 60 mg capsule,delayed release(DR/EC) 60 mg PO DAILY 30 Days Qty: 60 Patient Comments: TAKE 1 CAPSULE 2 TIMES A DAY aspirin 81 mg tablet,delayed release (DR/EC) 81 mg PO DAILY 30 Days Qty: 30 Patient Comments: TAKE 1 TABLET ONCE A DAY fenofibrate nanocrystallized 145 mg tablet 145 mg PO DAILY 30 Days Qty: 30 Patient Comments: TAKE 1 TABLET ONCE A DAY omeprazole 40 mg capsule,delayed release(DR/EC) 40 mg PO DAILY Qty: 30 Patient Comments: TAKE 1 CAPSULE ONCE A DAY cyclobenzaprine 10 mg tablet 10 mg PO TID PRN (Reason: pain) Qty: 90 Patient Comments: TAKE 1 TABLET 3 TIMES A DAY Linzess 290 mcg capsule PO DAILY PRN Patient Comments: TAKE 1 CAPSULE 1 TIME EACH DAY (DME) pen needle, diabetic [BD Ultra-Fine Jazlyn Pen Needle] 32 gauge x 5/32 needle See Rx Instructions .ROUTE .MEDSUPPLY Qty: 1200 Patient Comments: USE TO INJECT INSULIN 4 TIMES EACH DAY Rx Instructions: As directed Januvia 50 mg tablet PO DAILY Patient Comments: TAKE 1 TABLET 1 TIME EACH DAY rosuvastatin 20 mg tablet PO DAILY Patient Comments: TAKE 1 TABLET 1 TIME EACH DAY hydroxyzine HCl 25 mg tablet PO ONCE Patient Comments: TAKE 1 TABLET 1 TIME EACH DAY (DME) OneTouch Ultra Test Strip See Rx Instructions .ROUTE .MEDSUPPLY Qty: 10 Patient Comments: USE TO CHECK BLOOD SUGAR 3 TIMES EACH DAY Rx Instructions: As directed lamotrigine 150 mg tablet PO DAILY Patient Comments: TAKE 1 TABLET 1 TIME EACH DAY IN THE MORNING (DME) Dexcom G7 Sensor Device See Rx Instructions .ROUTE .MEDSUPPLY Qty: 1 Patient Comments: USE TO MONITOR BLOOD SUGAR. REPLACE EVERY 10 DAYS Rx Instructions: As directed insulin lispro 100 unit/mL insulin pen SQ DAILY Patient Comments: INJECT 6 UNITS UNDER THE SKIN 3 TIMES EACH DAY BEFORE MEALS. FOR EACH 30 UNITS THAT BLOOD SUGAR IS OVER 150, INCREASE DOSE BY 1 UNIT. DO NOT INJECT MORE THAN 60 UNITS IN 1 DAY. gabapentin 800 mg tablet PO DAILY Patient Comments: TAKE 1 TABLET 4 TIMES EACH DAY insulin glargine [Lantus Solostar U-100 Insulin] 100 unit/mL (3 mL) insulin pen SQ DAILY Patient Comments: INJECT 34 UNITS UNDER THE SKIN 1 TIME EACH DAY IN THE EVENING PLUS TITRATION ADVISED. MAX DOSE OF 50 UNITS A DAY. (DME) Dexcom G7 Architectural Coating Finisher Misc See Rx Instructions .ROUTE .MEDSUPPLY Qty: 1 Patient Comments: USE TO MONITOR BLOOD SUGAR DIRECTED Rx Instructions: As directed (DME) Dexcom G6 Transmitter Device See Rx Instructions .ROUTE .MEDSUPPLY Qty: 1 Patient Comments: USU TO MEASURE BLOOD SUGAR DIRECTED. REPLACE AFTER 90 DAYS. Rx Instructions: As directed nicotine 21 mg/24 hr patch 24 hour 1 patch topical DAILY Patient Comments: APPLY 1 PATCH ONTO THE SKIN 1 TIME EACH DAY DIRECTED. REMOVE BEFORE APPLYING NEXT PATCH. ibuprofen 800 mg tablet PO PRN Patient Comments: TAKE 1 TABLET 3 TIMES EACH DAY WITH FOOD NEEDED FOR PAIN Clenpiq 10 mg-3.5 gram- 12 gram/175 mL solution 175 ml PO DAILY Qty: 350 0RF Rx Instructions: take first dose at 5-9PM evening before colonoscopy; 2nd dose the next day approximately 5 hrs before colonoscopy insulin glargine U-300 conc 300 UNIT/ML insulin pen 8 units SQ BID 30 Days Qty: 1 0RF glucagon HCl 1 MG recon soln 1 mg IJ NEEDED PRN (Reason: Blood Sugar - Low) Qty: 1 0RF Rx Instructions: Use as directed for hypoglycemic emergency. cefdinir 300 mg capsule 300 mg PO BID 5 Days Qty: 10 0RF Referrals Follow up/Referrals: Jessica Man [Primary Care Provider, Medical] - See instructions Activity Restrictions/Add. Instructions Additional Instructions/Restrictions: Follow-up with your GI specialist. You do have a small amount of fluid at the base of the left lung, likely due to the increased pressures from the fluid in your abdomen. If you develop any new or worsening symptoms, such as shortness of breath, worsening abdominal pain, fever, or if you become concerned for your health for any reason, return to the emergency department for evaluation. Clinical Impressions Clinical Impression: Ascites, Pleural effusion, left Instructions Patient Instructions: DI for Acute Abdominal Pain Print Language Print Language: Japanese Discharge ED Provider: Yvan Pickett Adult HPI General Chief complaint: Abdominal Pain Stated complaint: pt needs stomach drained Time Seen by Provider: 05/25/25 15:38 Mode of Arrival: Ambulatory Source of Information: Patient Description of Symptoms (Recalled from ER Triage Doc. by RN): Pt reports having cirrhosis that requires her having a paracentesis weekly, but states she has not had one performed since 05/14/25 r/t insurance issues. Pt sees Dr. Lim at [facility] for her care. Pt says she has put off having another paracentesis as long as she can, but today she has noticed fluid coming from her legs and some shortness of air. 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 Patient states that she typically had weekly paracentesis every Saturday, however she is in the process of switching insurances and is unable to get her regularly scheduled paracentesis, which typically performed at [facility]. She states that the last time she had a paracentesis was on 05/14/2025, however she has had progressively distended abdomen causing shortness of breath. She also has had some weeping and swelling in both of her lower extremities. She was told to come to the emergency department to have a paracentesis performed. She states that she has never had fluid buildup in her lungs. Patient states that she has had some cramping pain in her abdomen but denies any fevers. Related Data Home Medications ?Medication ?Instructions ?Recorded ?Confirmed aspirin 81 mg tablet,delayed 81 mg PO DAILY preventitive 30 01/19/19 02/25/24 release days #30 tabs duloxetine 60 mg capsule,delayed 60 mg PO DAILY Nausea & vomiting 01/19/19 02/25/24 release 30 days #60 caps fenofibrate nanocrystallized 145 145 mg PO DAILY Cholesterol 30 01/19/19 02/25/24 mg tablet days #30 tabs hydrochlorothiazide 25 mg tablet 25 mg PO DAILY Fluid 30 days #30 01/19/19 02/25/24 tabs cyclobenzaprine 10 mg tablet 10 mg PO TID PRN pain #90 tabs 05/27/19 02/25/24 omeprazole 40 mg capsule,delayed 40 mg PO DAILY stomach #30 caps 05/27/19 02/25/24 release blood sugar diagnostic (OneTouch #10 ea 02/17/24 02/25/24 Ultra Test strips) blood-glucose sensor (Dexcom G7 #1 ea 02/17/24 02/25/24 Sensor device) blood-glucose transmitter (Dexcom #1 ea 02/17/24 02/25/24 G6 Transmitter device) blood-glucose,wagon driver,cont #1 ea 02/17/24 02/25/24 (Dexcom G7 Architectural Coating Finisher) gabapentin 800 mg tablet mg PO DAILY 02/17/24 02/25/24 hydroxyzine HCl 25 mg tablet mg PO ONCE 02/17/24 02/25/24 ibuprofen 800 mg tablet mg PO PRN 02/17/24 02/25/24 insulin glargine 100 unit/mL (3 unit SQ DAILY 02/17/24 02/25/24 mL) subcutaneous pen (Lantus Solostar U-100 Insulin) insulin lispro 100 unit/mL SQ DAILY 02/17/24 02/25/24 subcutaneous pen lamotrigine 150 mg tablet mg PO DAILY 02/17/24 02/25/24 linaclotide 290 mcg capsule mcg PO DAILY PRN 02/17/24 02/25/24 (Linzess) nicotine 21 mg/24 hr daily 1 patch topical DAILY 02/17/24 02/25/24 transdermal patch pen needle, diabetic 32 gauge x #1,200 ea 02/17/24 02/25/24 (BD Ultra-Fine Jazlyn Pen Needle) rosuvastatin 20 mg tablet mg PO DAILY 02/17/24 02/25/24 sitagliptin phosphate 50 mg tablet mg PO DAILY 02/17/24 02/25/24 (Januvia) Previous Rx's ?Medication ?Instructions ?Recorded glucagon HCl 1 mg solution for 1 mg IJ NEEDED PRN Blood Sugar 10/28/21 injection - Low #1 kit insulin glargine U-300 conc 300 8 units SQ BID 30 days #1 pen 10/28/21 unit/mL (1.5 mL) subcutaneous pen needle sod picosulf 10 mg-magnes 3.5 175 ml PO DAILY 2 doses #350 mL 05/05/24 gram-citric 12 gram/175 mL oral solution (Clenpiq) cefdinir 300 mg capsule 300 mg PO BID 5 days #10 caps 02/12/25 Allergies Allergy/AdvReac Type Severity Reaction Status Date / Time erythromycin base Allergy Mild Other Verified 05/25/25 15:18 empagliflozin (From Allergy Other Verified 05/25/25 15:18 Jardiance) [facility] Disclaimer: The information contained in this section may have been updated after the patient was seen, as this information can be updated by other users. Medical History (Updated 05/25/25 @ 17:05 by Yvan Pickett MD) PTSD (post-traumatic stress disorder) Anxiety Depression Diabetes mellitus Cirrhosis of liver without mention of alcohol Esophagus disorder Surgical History (Updated 05/25/25 @ 15:17 by Leah Cabello, DELMY) History of abdominal paracentesis History of unilateral salpingectomy History of cholecystectomy Family History Other Asthma Cancer Coronary artery disease Diabetes FHx: mental illness Heart attack Hypertension Kidney disease Stroke Social History Smoking Status: Former smoker alcohol intake: never substance use type: denies use current occupational status: other Travel in the last 8 weeks?: None caffeine: Yes Have you lived/traveled outside US in past 30 days?: No Contact w/someone who lives/traveled outside US past 30 days?: No Exposure to someone with infectious disease in past 14 days?: No Do you have a fever (greater than 100.4 F or 38 C)?: No Have you tested positive for COVID-19?: No Exposed to someone with COVID-19 in past 14 days?: No Do you have a sore throat?: No Do you have a cough?: No Do you have any weakness?: No Do you have any diarrhea?: No Are you experiencing any unusual bleeding?: No Do you have any muscle aches/pain?: No Do you have any abdominal pain?: No Are you experiencing loss of taste or smell?: No Other Medical History Have you received the Flu Vaccine for this season: No Have you received the Pneumonia Vaccine: Yes ROS Obtained: Yes Systems reviewed as appropriate & no additional complaints except as documented Physical Exam General General appearance: alert and in no apparent distress Head Head exam: atraumatic Eye Eye exam: Present normal appearance ENT ENT exam: Present normal external ear exam Neck Neck exam: Present full ROM Chest Chest inspection: Present symmetric chest wall rise Respiratory Respiratory exam: Present normal lung sounds bilaterally; Absent respiratory distress, wheezes or stridor Cardiovascular Cardiovascular exam: Present regular rate and normal rhythm Abdominal Exam Abdominal exam: Present soft and distention; Absent tenderness or guarding Extremities Exam Extremities exam: Present normal inspection and edema Back Exam Back exam: Present normal inspection Neurological Exam Neurological exam: Present alert and oriented X3 Psychiatric Psychiatric exam: Present normal affect Skin Skin exam: Present warm and dry Medical Decision Making Medical Records Screening: Per USPSTF and CDC recommendations, given the prevalence of disease in our region, it is our hospital?s policy to screen for HIV and viral Hepatitis for all patients aged 18 and over and those with ongoing risk factors. Helder Inquiry Pt receiving controlled substance: No Vital Signs: 05/25/25 15:10 05/25/25 16:00 05/25/25 16:14 Temperature 98.2 F Temperature Source Oral Pulse Rate 95 H 95 H Pulse Rate [Right Brachial] 94 H Respiratory Rate 16 Blood Pressure 130/67 117/69 Blood Pressure [Right Arm] 124/53 L Blood Pressure Mean [Right Arm] 76 Blood Pressure Source [Right Arm] Automatic Cuff 02 Sat by Pulse Oximetry 100 98 100 Oxygen Delivery Method Room Air 05/25/25 16:30 05/25/25 16:35 05/25/25 16:49 Temperature Temperature Source Pulse Rate 91 H 92 H 92 H Pulse Rate [Right Brachial] Respiratory Rate Blood Pressure 124/67 116/63 113/69 Blood Pressure [Right Arm] Blood Pressure Mean [Right Arm] Blood Pressure Source [Right Arm] 02 Sat by Pulse Oximetry 99 98 99 Oxygen Delivery Method 05/25/25 17:01 Temperature Temperature Source Pulse Rate 95 H Pulse Rate [Right Brachial] Respiratory Rate Blood Pressure 130/84 Blood Pressure [Right Arm] Blood Pressure Mean [Right Arm] Blood Pressure Source [Right Arm] 02 Sat by Pulse Oximetry 99 Oxygen Delivery Method Lab Data Lab Results 05/25/25 15:45: WBC 7.9, RBC 3.37 L, Hgb 8.9 L, Hct 27.0 L, MCV 80.1 L, MCH 26.4 L, MCHC 33.0, RDW 18.6 H, Plt Count 139 L, MPV 9.5, Neut % (Auto) 72.0, Lymph % (Auto) 12.4, [place] % (Auto) 9.9 H, Eos % (Auto) 4.7, Baso % (Auto) 0.6, Neut # (Auto) 5.7, Lymph # (Auto) 1.0, [place] # (Auto) 0.8, Eos # (Auto) 0.4, Baso # (Auto) 0.1, PT 13.8 H, INR 1.27 H, APTT 30.2, Sodium 132 L, Potassium 4.2, Chloride 102, Carbon Dioxide 26, Anion Gap 8.2, BUN 29 H, Creatinine 1.30 H, Estimated Creat Clear 74, Estimated GFR 43 L, Est GFR ( Amer) 51 L, Glucose 90, Calcium 8.4, Total Bilirubin 3.7 H, AST 102 H, ALT 37, Alkaline Phosphatase 171 H, Troponin I < 0.01, NT-Pro-B Natriuret Pep 213 H, Total Protein 6.8, Albumin 3.4 L, Globulin 3.4 H, Albumin/Globulin Ratio 1.0 L 05/25/25 16:15: Fluid Source Peritoneal fluid, Fluid Volume 7, Fluid Appearance Hazy, Fluid RBC (Auto) 1000, Fld Tot Nucleated Cell 158 05/25/25 15:45 05/25/25 15:45 Orders (Tests/Meds): ED MEDICATIONS Generic Name Dose Route Start Last Admin Trade Name Freq PRN Reason Stop Dose Admin Albumin Human 12.5 gm in 50 mls @ 100 mls/hr 05/25/25 16:38 05/25/25 16:52 Albumin 25% (12.5gm) Soln 50ml Bag IV 05/25/25 17:37 100 mls/hr Q30M BARNEY Administration ORDERS Category Date Time Status CXR --portable [XR chest portable] Stat Exams 05/25/25 15:50 Completed POCUS Point of Care (ER Only) Stat Exams 05/25/25 15:38 Ordered BNP [NT Pro Brain Natriuretic Pep.] Stat Lab 05/25/25 15:45 Completed Body Fluid: Cell Count w/ Diff Stat Lab 05/25/25 16:15 Results CBC w/Auto Diff [Complete Blood Count Auto Diff] Stat Lab 05/25/25 15:45 Completed CMP [Comprehensive Metabolic Panel] Stat Lab 05/25/25 15:45 Completed HIV Combo Routine Lab 05/25/25 15:15 Ordered Hepatitis C Ab Qual. 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 Patient states that she typically had weekly paracentesis every Saturday, however she is in the process of switching insurances and is unable to get her regularly scheduled paracentesis, which typically performed at [facility]. She states that the last time she had a paracentesis was on 05/14/2025, however she has had progressively distended abdomen causing shortness of breath. She also has had some weeping and swelling in both of her lower extremities. She was told to come to the emergency department to have a paracentesis performed. She states that she has never had fluid buildup in her lungs. Patient states that she has had some cramping pain in her abdomen but denies any fevers. On arrival, patient is normotensive, heart rate within normal limits at 94 bpm, breathing comfortably on room air with oxygen saturation 100% SpO2. Afebrile. Physical exam, as stated above, revealed an overall well-appearing female in no distress. Her abdomen is distended and mildly tender but not peritonitic. She does have pitting edema to her distal bilateral lower extremities. Differential diagnosis includes, but is not limited to: Noninfectious ascites, SBP, pleural effusion, pulmonary edema, pneumonia, among others. The most morbid conditions were considered and workup was based on these. Workup in the emergency department included [id number] ultrasound to evaluate for ascitic fluid volume, CBC, CMP, BNP, troponin, PTT, PT/INR, chest x-ray, ascitic fluid studies and glute Gram stain, glucose, cell count with differential, protein [id number] ultrasound demonstrated large fluid pocket in the left abdomen. See procedure note for details. Patient was consented for paracentesis and was performed using a 6 Macedonian safety centesis needle after anesthesia was obtained using injected lidocaine and a Z pattern. Had positive drawback of clear yellow fluid. This was sent for fluid analysis and continue drainage. Patient states that she normally has 6 to 8 L drained with every paracentesis. She does state that she typically gets albumin with these. Chest x-ray interpreted by me personally. Patient has a small left-sided lower pleural effusion but no other focal consolidations, pneumothorax. See final radiology report for details. Patient had 7 L of ascitic fluid removed. She was given 25 g of human albumin IV Laboratory studies showed no leukocytosis, chronically low hemoglobin that appears to be stable at 8.9, hematocrit 27, platelets mildly low at 139. Coagulation studies show mildly elevated INR of 1.27 (previously was 1.18) but nonactionable. PTT normal at 30.2. Mildly low sodium of 132 but nonactionable. Electrolytes otherwise within normal limits. Creatinine is mildly elevated but baseline at 1.3 (baseline appears to be 1.10), BUN mildly elevated 29, bilirubin is elevated at 3.7 and was 1.9 back in February of this year. Liver enzymes show AST mildly elevated at 102 (previously 64 in February), ALT normal at 37, alk phos mildly elevated 171. Initial opponent less than 0.01. BNP mildly elevated at 213. Albumin is mildly low at 3.4 (was 3.1 back in February). Ascitic fluid studies showed 158 total nucleated cells, 1000 red blood cells. Given this, there is low concern for spontaneous bacterial peritonitis. She has had improvement in her symptoms. Despite that she is appropriate for discharge at this time with plan to follow-up with her GI team. Return precautions were given. All questions were answered. She demonstrated understanding and was agreement this plan. She was then discharged from the emergency department in stable condition peer Procedures Paracentesis Time Out Performed: Yes Local Anesthetic: lidocaine 1% Amount of anesthesia used (mL): 10 Fluid: clear Post Procedure Exam: awake, alert, normal BP, normal HR and normal SpO2 Patient Tolerated Procedure: well and no complications Complications: none Limited Ultrasound Interpretation:: Ultrasound-guided fluid drainage Indication: - History of cirrhosis, ascites Identified structures: - Left lower quadrant with large area of hypoechogenicity in the left lower abdomen, bowel is deep to this. Spleen is superior to this area. Left lower abdomen Location/access site: - Left lower abdomen Fluid character: - dark echogenicity Direct visualization? - Yes Impression: Ascitic fluid in the left lower abdomen with large fluid pocket Images were saved/were not saved to permanent archive The study was/was not technically adequate CPT Code fluid removal: 35145 Paracentesis: [id number] This study was performed by me, and I personally interpreted all images/videos. Based on my clinical judgement, these images were adequate did not and did not necessitate further imaging Critical Care Critical Care Time Critical Care Time: No
--- NOTE | 2025-05-25 15:50 | XR_ITS ---
PROCEDURE INFORMATION: Exam: XR Chest Exam date and time: 05/25/2025 3:57 PM Age: 55 years old Clinical indication: Shortness of breath; Additional info: Ascites, shortness of breath TECHNIQUE: Imaging protocol: Radiologic exam of the chest. Views: 1 view. COMPARISON: CR XR CHEST PORTABLE 10/05/2023 3:31 PM FINDINGS: Lungs: Interval development of opacification of the lower 1/3 of the left hemithorax. Lungs are otherwise clear. Pleural spaces: Unremarkable. No pleural effusion. No pneumothorax. Heart/Mediastinum: Unremarkable. No cardiomegaly. Bones/joints: Unremarkable. IMPRESSION: Opacification left lung base may reflect pneumonia/atelectasis and possible effusion. Underlying mass can not be excluded. Consider further assessment with CT scan of the chest with contrast.
--- OUTSIDE RECORDS SUMMARY | 2025-05-25 15:53 | XMS_ITS ---
Author Organization Healthcare Address [address] [place] [address] Care Team Providers Care Manager Global Name Role Phone Jessica Man APRN Primary Care Provider Mary Lim APRN Unavailable [phone] Transplant Episode Liver Candidate [facility] ([place], [place]) - SANDRA Referred on 05/11/2025 Marked as Active on 05/11/2025 Liver CoordinatorEdda Méndez Fax: N/A Email: N/A Scores Score Value Updated Expires Exceptions/[place] sons CPRA Not available MELD (Calc) 15 03/05/2025 Care Team Name Role Phone Fax Email Edda Méndez Liver Coordinator [phone] N/A N/A Mary Lim APRN Referring Physician [phone] N/A Jessica Man APRN Primary Care Provider [phone] N/A Elaine Banerjee Injection Mold Technician [phone] N/A N/A Donnie Jordan MD Surgeon [phone] N/A Events Pre-Transplant Referred: 05/11/2025
--- OUTSIDE RECORDS SUMMARY | 2025-05-25 15:54 | XMS_ITS | Encounter Summary ---
Author Organization Healthcare Address [address] [place] [address] Care Team Providers Care License And Permit Specialist Name Role Phone Donovan Jessica Khoury APRN Primary Care Provider [phone] Encounter Details Date Type Department Care Team (Latest Contact Info) Description 04/06/2025 Travel Social History Tobacco Use Types Packs/Day Years Used Date Smoking Tobacco: Former Cigarettes 0.5 30 1 - 2022 Smokeless Tobacco: Never Comments:Smoking for 30+ yea rs Alcohol Use Standard Drinks/Week Comments No 0 [...] PM EDT documented as of this encounter Plan of Treatment Upcoming Encounters Date Type Department Care Team (Late st Contact Info) Description 07/02/2025 12:20 PM EDT Office Visit [facility] [address] [place] [address] Kira Ramirez, CONICAL MIXER [address] [place] [address] 07/22/2025 3:40 PM EDT Office Visit [facility] [address] [place] [address] Silvia Lewis, NGUYỄN [address] [place] [address] documented as of this encounter Visit Diagnoses Not on filedocumented in this encounter Additional Health Concerns Assessment Noted Time PHQ-9 Depression Total Score: 7 12/22/19 25 12:39 PM EDT A fall risk assessment has been complete d for the patient 03/13/2023 9:53 AM EDT A Body Mass Index follow-up plan has been documented for the patient 04/06/2025 2:27 PM EDT documented as of this encounter Care Teams License And Permit Specialist Relationship Specialty Start Date End Date Jessica Man, CONICAL M[employer]ER [address] [place] [address] PCP - General 02/24/21 documented as of this encounter
--- OUTSIDE RECORDS SUMMARY | 2025-05-25 15:54 | XMS_ITS | Encounter Summary ---
Author Organization [facility] Address [address] [place] [address] Care Team Providers Care Pipe Organ Mechanic Name Role Phone Jessica Man NEONATAL PEDIATRIC NURSE Primary Care Provider [phone] Mary Lim NEONATAL PEDIATRIC NURSE Unavailable [phone] Encounter Details Date Type Department Care Team (Late st Contact Info) Description 05/24/2025 Telephone [facility] [address] [place] [id number] Edda Méndez [place] [phone] Social History Tobacco Use Types Packs/Day Years Used Date Smoking Tobacco: Former Cigarettes 0.5 30 1 993 - 2022 Smokeless Tobacco: Never Comments:Smoking for [...] PM EDT documented as of this encounter Miscellaneous Notes * Telephone Encounter - Edda Méndez - 05/24/2025 10:13 AM EDT Called Ms Theodore to follow up regarding her insurance - no answer, left voicemail message with contact information and request for return call. documented in this encounter Plan of Treatment Upcoming Encounters Date Type Department Care Team (Late st Contact Info) Description 07/02/2025 12:20 PM EDT Office [facility] [address] [place] [address] Kira Ramirez, NEONATAL PEDIATRIC NURSE [address] [place] [address] 07/22/2025 3:40 PM EDT Office Visit [facility] [address] [place] [address] Silvia Lewis S, NEONATAL PEDIATRIC NURSE [address] [facility] [address] [place] [address] documented as of this encounter Visit Diagnoses Not on filedocumented in this encounter Additional Health Concerns Assessment Noted Time PHQ-9 Depression Total Score: 7 12/22/19 12:39 PM EDT A fall risk assessment has been complete d for the patient 03/13/2023 9:53 AM EDT A Body Mass Index follow-up plan has been documented for the patient 04/06/2025 2:27 PM EDT documented as of this encounter Care Teams Pipe Organ Mechanic Relationship Specialty Start Date End Date Jessica Man, NEONATAL PEDIATRIC NURSE [address] [place] [id number] PCP - General 02/24/21 Mary Lim, NEONATAL PEDIATRIC NURSE [address] [place] [address] Referring Physician Gastroenterology 05/11/25 documented as of this encounter
--- OUTSIDE RECORDS SUMMARY | 2025-05-25 15:54 | XMS_ITS | Encounter Summary ---
Author Organization [facility] Address [address] [place] [address] Care Team Providers Care Burlesque Dancer Name Role Phone Jessica Man MONUMENT MASON Primary Care Provider [phone] Mary Lim MONUMENT MASON Unavailable [phone] Reason for Visit * Reason Comments Referral - Liver Txp Encounter Details Date Type Department Care Team (Late st Contact Info) Description 05/17/2025 Telephone [facility] [address] [place] [phone] Edda Méndez [place] [phone] Referral - Liver Txp Social History Tobacco Use Types Packs/Day Years [...] * Telephone Encounter - Edda Méndez - 05/17/2025 9:56 AM EDT Called Ms Theodore to get clarification on her insurance - spoke to Ms Theodore - her [employer] termed unexpectedly and she does not understand why. She has an appointment this afternoon with [employer] to try to resolve this problem. I explained referral process and insurance review prior to scheduling andthat she will need insurance before she can move forward with appointments at the Transplant Center. Provided my phone number for her to call back once she has more information. documented in this encounter Plan of Treatment Upcoming Encounters Date Type Department Care Team (Late st Contact Info) Description 07/02/2025 12:20 PM EDT Office Visit [facility] Medicine Specialties [address] [place] [address] Kira Ramirez D, MONUMENT MASON [address] [place] [address] 07/22/2025 3:40 PM EDT [facility] [address] [place] [address] Silvia Lewis S, MONUMENT MASON [address] [facility] [address] [place] [address] documented as of this encounter [...] documented as of this encounter Care Teams Burlesque Dancer Relationship Specialty Start Date End Date Jessica Man, MONUMENT MASON [facility] [place] [address] PCP - General 02/24/21 Mary Lim APRN [address] [place] [address] Referring Physician Gastroenterology 05/11/25 documented as of this encounter
--- OUTSIDE RECORDS SUMMARY | 2025-05-25 15:54 | XMS_ITS | Encounter Summary ---
Author Organization [facility] Address [address] [place] [address] Care Team Providers Care Die Drawing Checker Name Role Phone Jessica Man INSTALLER MOLDING AND TRIM Primary Care Provider [phone] Mary Lim INSTALLER MOLDING AND TRIM Unavailable [phone] Reason for Referral * Consultation (Routine) - Closed Specialty Diagnoses / Procedures Referred By Contshiloh t Referred To Contact Endocrinology Diagnoses Type 2 diabetes mellitus with diabetic neuropathy, unspecified whether half-way insulin use (CMS/HCC) Jessica Man, INSTALLER MOLDING AND TRIM [address] [place] [address] Phone: tel: fax: [facility] [address] [place] [address] Phone: tel: fax: Referral ID Status Reason Start Date Expiration Date V isits Requested Visits Authorized [id number] Closed Specialty Services Required 10/10/2022 04/10/2024 1 1 Encounter Details Date Type Department Care Team (Late st Contact Info) Description 10/10/2022 Community [facility] [address] [place] [address] Jessica Man, INSTALLER MOLDING AND TRIM [address] [place] [address] Type 2 diabetes mellitus with diabetic neuropathy, 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 (CMS/HCC) (Primary Dx) Social History Tobacco Use Types Packs/Day Years Used Date Smoking Tobacco: Every Day Comments:Smoking for 30+ yea rs Alcohol Use Standard Drinks/Week Comments No 0 (1 standard drink = 0.6 oz pur e alcohol) Comments Unknown Sex and Gender Information Value [...] Description 07/02/2025 12:20 PM EDT [facility] Visit [facility] [address] [place] [address] Kira Ramirez, INSTALLER MOLDING AND TRIM [address] [place] [address] 07/22/2025 3:40 PM EDT Office Visit [facility] Endocr[facility]ology [address] [place] [address] Silvia Lewis, INSTALLER MOLDING AND TRIM [address] [facility] [address] [place] [address] Scheduled Referrals Name Type Priority Associated Diagnoses Order Schedule Ambulatory referral to Endocrinology Outpatient Referral Routine Type 2 diabetes mellitus with diabetic neuropathy, 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
--- OUTSIDE RECORDS SUMMARY | 2025-05-25 15:54 | XMS_ITS | Clinical Summary ---
Author Organization [facility] Address [address] [place] [address] Care Team Providers Care Pin Feather Machine Operator Name Role Phone Jessica Man APRN Primary Care Provider [phone] Allergies Active Allergy Reactions Criticality Noted Date Comments Empagliflozin Hives,Unknown - Low Severity Medium 11/15 Erythorbic Acid Swelling 09/17/2018 throat Erythromycin Nausea And Vomiting, Unknown - Low Severity,Unknown (See Comments) Low 06/01/2014 Metformin Diarrhea,Other (See Comments) Low 2022 Vomiting Varenicline Hives,Unknown - Low Severity Medium 2022 Medications Blood Glucose Monitoring Suppl (ONE TOUCH ULTRA 2) w/Device kit USE TO TEST FASTING BLOOD SUGAR TWO TIMES EACH DAY 0 8 Active DULoxetine (CYMBALTA) 60 MG capsule TAKE 1 CAPSULE 2 TIMES A DAY 2 8 Active fenofibrate (TRICOR) 145 MG tablet 8 Active ONE TOUCH ULTRA TEST test strip USE TO TEST BLOOD SUGAR TWO TIMES EACH DAY 3 8 Active hydrochlorothiaz ramakrishna (HYDRODIURIL) 25 MG tablet Take 1 tablet by mouth Daily. 5 8 Active ONETOUCH DELICA LANCETS 33G misc USE TO TEST BLOOD SUGAR TWO TIMES EACH DAY 3 8 Active omeprazole (priLOSEC) 40 MG capsule TAKE 1 CAPSULE ONCE A DAY 5 8 Active Polyethylene Glycol 3350 (PEG 3350) powder MIX 17GM IN 8 OUNCES OF WATER AND DRINK ONCE A DAY 2 8 Active Dulcolax 5 MG EC tablet Take 2 tablets by oral route as directed for 1 day. 4 Active Continuous Glucose Device Sales Consultant (Dexcom G7 Device Sales Consultant) device USE TO MONITOR BLOOD SUGAR DIRECTED 4 Active Continuous Glucose Sensor (Dexcom G7 Sensor) [facility] USE TO MONITOR BLOOD SUGAR. REPLACE EVERY 10 DAYS 4 Active Continuous Glucose Transmitter (Dexcom G6 Transmitter) [facility] USU TO MEASURE BLOOD SUGAR DIRECTED. REPLACE AFTER 90 DAYS. 4 Active cyclobenzaprine (FLEXERIL) 10 MG tablet TAKE 1 TABLET 1 TIME EACH DAY AT BEDTIME NEEDED FOR MUSCLE SPASMS Active famotidine (PEPCID) 40 MG tablet Take 1 tablet every day by oral route at bedtime for 90 days. 4 Active hydrOXYzine (ATARAX) 25 MG tablet TAKE 1 TABLET 1 TIME EACH DAY Active Insulin Lispro, 1 Unit Dial, (HUMALOG) 100 UNIT/ML solution pen-injector INJECT 8 UNITS UNDER THE SKIN 3 TIMES EACH DAY BEFORE MEALS. FOR EACH 30 UNITS THAT BLOOD SUGAR IS ABOVE 150, INCREASE DOSE BY 1 UNIT. DO NOT EXCEED 60 UNITS PER DAY. 4 Active BD Pen Needle Jazlyn U/F 32G X 4 MM [facility] USE TO INJECT INSULIN 4 TIMES EACH DAY 4 Active lamoTRIgine (LaMICtal) 150 MG tablet TAKE 1 TABLET 1 TIME EACH DAY IN THE MORNING Active Linzess 290 MCG capsule capsule TAKE 1 CAPSULE 1 TIME EACH DAY Active nicotine (NICODERM CQ) 21 MG/24HR patch APPLY 1 PATCH ONTO THE SKIN 1 TIME EACH DAY DIRECTED. REMOVE BEFORE APPLYING NEXT PATCH. Active Zofran 4 MG tablet Take 1 tablet every 4-6 hours by oral route as needed for 10 days. 4 Active predniSONE (DELTASONE) 20 MG tablet TAKE 2 AND 1/2 TABLETS ONCE A DAY FOR 4 DAYS Active rosuvastatin (CRESTOR) 20 MG tablet TAKE 1 TABLET 1 TIME EACH DAY Active Januvia 50 MG tablet TAKE 1 TABLET 1 TIME EACH DAY 4 Active traZODone (DESYREL) 50 MG tablet TAKE 1 TABLET 1 TIME EACH DAY AT BEDTIME Active gabapentin (NEURONTIN) 800 MG tablet Take 1 tablet by mouth 3 (Three) Times a Day. Active ibuprofen (ADVIL,MOTRIN) 800 MG tablet TAKE 1 TABLET 3 TIMES EACH DAY WITH FOOD NEEDED FOR PAIN Active Active Problems Problem Noted Date Diagnosed Date Chronic obstructive pulmonar y disease with (acute) exacerbation 06/23/2024 Hypersomnia 06/23/2024 Assessment & Plan (06/23/2024 1:24 PM EDT): Given known history of VI without recent weight loss and newly diagnosed early start of early dementia I feel her recent home sleep study may be a false negative. Will order in lab PSG. [place] 17. Preop cardiovascular exam 03/17/2024 Encounter for diabetic foot exam 12/09/2023 Neuropathy 12/09/2023 Type 2 diabetes mellitus wit h hyperglycemia, without long-term current use of insulin 12/09/2023 Abnormal liver function 01/02/2023 Gastroparesis 01/02/2023 Esophageal dysphagia 10/24/2022 Gastro-esophageal reflux disease with esophagiti s 10/24/2022 Irritable bowel syndrome with constipation 10/24 Electrolyte disorder 05/09/2021 Weakness 05/09/2021 Cirrhosis 04/27/2020 Polyarthralgia 11/12/2019 Chronic bronchitis 11/26/2018 VI (obstructive sleep apnea) 11/26/2018 Assessment & Plan (06/23/2024 1:23 PM EDT): Given known history of VI without recent weight loss and newly diagnosed early start of early dementia I feel her recent home sleep study may be a false negative. Will order in lab PSG. Degenerative disc disease, lumbar 09/17/2018 Secondary hypertension 09/17/2018 Hyperlipidemia 09/17/2018 Diabetic polyneuropathy asso ciated with type 2 diabetes mellitus 09/17/2018 Chronic osteoarthritis 08/03/2014 Arthritis 06/01/2014 Resolved Problems Problem Noted Date Diagnosed Date Resolved Date Exposure to COVID-19 virus 06/23/2024 0 06/23/2024 Immunizations Immunization Administration Dates Next Due 31-influenza Vac Quardvalent Preservativ 020,09/16/2019 Fluzone (or Fluarix & Flulaval for VFC) >6mos Hepatitis A 06/30/2019,10/02/2018 Pneumococcal Polysaccharide (PPSV23) 11/26/2018 Family History Relation Name Status Comments Father Alive Mother Alive Social History Tobacco Use Types Packs/Day Years Used Date Smoking Tobacco: Every Day Cigarettes 0.5 35 Passive Smoke Exposure: Current Smokeless Tobacco: Never Tobacco Cessation:Ready to Q uit: Not Asked; Counseling Given: Not Answered Alcohol Use Standard Drinks/Week Comments No 0 (1 standard drink = 0.6 oz pur e alcohol) AUDIT-C Answer Date Recorded Frequency of Alcohol Consumption Never 09/17/2018 Average Number of Drinks Not on file 018 Frequency of Binge Drinking Not on file 02/2018 Abuse Screen Answer Date Recorded Unsafe at Home or Work/School Not on file Feels Threatened by Someone? Not on file 08/2023 Does Anyone Keep You from Co ntacting Others or Doint Things Outside the Home? Not on file 07/24/2023 Physical Sign of Abuse Present Not on file 1 Housing Stability Answer Date Recorded Current Living Arrangements Not on file 07/14 Potentially Unsafe Housing Conditions Not on cindy e 07/24/2023 Family and Community Support Answer Alexander e Recorded Help with Day-to-Day Activities Not on file 07/24/2023 Lonely or Isolated Not on file 07/24/2023 Employment Answer Date Recorded Do you want help finding or keeping work or a verena b? Not on file 07/24/2023 Disabilities Answer Date Recorded Concentrating, Remembering, or Making Decisions Difficulty Not on file 07/24/2023 Doing Errands Independently Difficulty Not on fi le 07/24/2023 Education Answer Date Recorded Help with school or training? Not on file Preferred Language Not on file 07/24/2023 Comments Unknown Sex and Gender Information Value Date Recorded Sex Assigned at Not on file Legal Sex Female 2:54 PM EDT Gender Identity Not on file Sexual Orientation Not on file Last Filed Vital Signs Vital Sign Reading Time Taken Comments Blood Pressure 116/70 06/23/2024 12:38 PM EDT Pulse 83 06/23/2024 12:38 PM EDT Temperature 36.3 C (97.4 F) 09/17/2018 2:21 PM EST Respiratory Rate - - Oxygen Saturation 95% 06/23/2024 12:38 PM EDT Inhaled Oxygen Concentration - - Weight 91.3 kg (201 lb 4.8 oz) 06/23/2024 12:38 PM EDT Height 172.7 cm (5' 8 ) 06/23/2024 12:38 PM EDT Body Mass Index 30.61 06/23/2024 12:38 PM EDT Plan of Treatment Health Maintenance Due Date Last Done Comments Annual Gynecologic Pelvic an d Breast Exam 1970 DIABETIC EYE EXAM 02/16/1980 URINE MICROALBUMIN-CREATININ E RATIO (uACR) 02/16/1980 Hepatitis B (1 of 3 - 19+ 3- dose series) 1989 TDAP/TD VACCINES (1 - Tdap) 1989 PAP SMEAR 1991 MAMMOGRAM 2010 COLOGUARD 2015 COLON CANCER SCREENING 5 YEA R SIGMOIDOSCOPY 2015 CT COLONOGRAPHY 2015 FECAL OCCULT BLOOD TEST 2015 FIT Testing (1 year) 2015 ANNUAL PHYSICAL 09/17/2018 Pneumococcal Vaccine 50+ (2 of 2 - PCV) 11/26/2019 11/26/2018 ZOSTER VACCINE (1 of 2) 02/16/2020 LIPID PANEL 05/09/2022 05/09/2021, 05/09/2021 COVID-19 Vaccine (2 - 2023-2 5 season) 2024 09/23/2023 DIABETIC FOOT EXAM 12/09/2024 12/09/2023 INFLUENZA VACCINE 07/14/2025 09/03/2023, , 07/13/2020, Additional history exists HEMOGLOBIN A1C 10/06/2025 04/06/2025, 03/1 , 09/21/2024, Additional history exists COLONOSCOPY 04/19/2029 04/19/2019 COLORECTAL CANCER SCREENING 04/19/2029 HEPATITIS C SCREENING Completed 06/01/2014 [place] [address] Care Teams Pin Feather Machine Operator Relationship Specialty Start Date End Date Jessica Man APRN [address] [place] [address] PCP - General Nurse Practitioner 03/17/24
--- OUTSIDE RECORDS SUMMARY | 2025-05-25 15:54 | XMS_ITS | Clinical Summary ---
Author Organization [facility] Address [address] [place] [address] Care Team Providers Care Diabetes Education Coordinator Name Role Phone Jessica Man MARINE STEAM FITTER HELPER Primary Care Provider [phone] Mary Lim MARINE STEAM FITTER HELPER Unavailable [phone] Allergies Active Allergy Reactions Criticality Noted Date Comments Varenicline Hives Medium 12/05/2022 Erythorbic Acid Swelling High 09/17/2018 throat Erythromycin Nausea And Vomiting, Unknown - Patient states they do not know rxn details Low 06/01/2014 Empagliflozin Hives Medium 12/05/2022 Metformin Diarrhea,Other - ple ase document in the comment field Low 12/05/2022 Vomiting Medications cyclobenzaprine (Flexeril) 10 MG tablet 3 Active diazePAM (Valium) 5 MG tablet 2 Active DULoxetine (Cymbalta) [address] capsule 3 Active fenofibrate (Tricor) 145 MG tablet 3 Active gabapentin (Neurontin) 800 MG tablet 3 Active hydrOXYzine HCl (Atarax) 25 MG tablet 3 Active ibuprofen 800 MG tablet 2 Active lamoTRIgine (LaMICtal) 150 MG tablet 3 Active Linzess 290 MCG capsule 3 Active nitroglycerin (Nitrostat) 0.4 MG SL tablet 2 Active omeprazole (PriLOSEC) [address] capsule 3 Active rosuvastatin (Crestor) 20 MG tablet Take 1 tablet (20 mg) by mouth 1 (one) time each day. Active traZODone (Desyrel) 50 MG tablet 3 Active glucagon (Baqsimi Two Pack) 3 MG/DOSE powder Nasal Powder Administer 3 mg into affected nostril(s) 1 (one) time if needed (severe hypoglycemia). 2 each 3 4 09/21/20 25 Active Continuous Glucose Sensor (Dexcom G7 Sensor) misc 1 each every 10 (ten) days. 9 each 3 4 09/16/20 25 Active furosemide (Lasix) 40 MG tablet TAKE 1 TABLET 1 TIME EACH DAY Active famotidine (Pepcid) 40 MG tablet take 1 tablet 1 time each day at bedtime 5 Active OneTouch Ultra Test test strip USE TO CHECK BLOOD SUGAR 4 TIMES EACH DAY 5 Active rOPINIRole (Requip) 1 MG tablet TAKE 1 TABLET 1 TIME EACH DAY AT BEDTIME FOR RESTLESS LEGS Active spironolactone (Aldactone) 50 MG tablet TAKE 2 TABLETS 1 TIME EACH DAY Active insulin glargine (Lantus SoloStar, Basaglar) 100 UNIT/ML injection pen Inject subcutaneous 30 units in PM plus titration as advised, max dose 50u/day 30 mL 3 5 Active insulin lispro (Admelog, HumaLOG) 100 UNIT/ML injection pen Instructed to inject 12 units before meals plus correction 1:30>150. MDD: 60 units. 55 mL 3 5 Active Insulin Pen Needle (BD Pen Needle Jazlyn U/F) 32G X 4 MM misc 4x/day as directed 360 each 3 5 Active Active Problems Problem Noted Date Diagnosed Date Type 2 diabetes mellitus wit h hyperglycemia, without long-term current use of insulin 12/09/2023 Neuropathy 12/09/2023 Encounter for diabetic foot exam 12/09/2023 Uncontrolled type 2 diabetes mellitus 08/12/2023 08/12/2023 Weakness 05/09/2021 Electrolyte disorder 05/09/2021 Cirrhosis 04/27/2020 Eye redness 11/12/2019 Foot pain 11/12/2019 Polyarthralgia 11/12/2019 Chronic bronchitis 11/26/2018 VI (obstructive sleep apnea) 11/26/2018 Degenerative disc disease, lumbar 09/17/2018 Diabetic polyneuropathy asso ciated with type 2 diabetes mellitus 09/17/2018 Hyperlipidemia 09/17/2018 Secondary hypertension 09/17/2018 Chronic osteoarthritis 08/03/2014 Arthritis 06/01/2014 Lower back pain 06/01/2014 Encounters Date Type Department Care Team Description 05/24/2025 Telephone [facility] [address] [facility] [address] [place] [address] Edda Méndez 05/17/2025 Telephone [facility] [address] [address] Edda Méndez Referral - Liver Txp 05/11/2025 Telephone [facility] [address] [address] Edda Méndez Referral - Liver Txp 04/06/2025 1:40 PM EDT Office Visit [facility] Endocrinology [address] [place] [phone] Silvia Lewis, MARINE STEAM FITTER HELPER Type 2 diabetes mellitus with hyperglycemia, without long-term current use of insulin ([facility]) (Primary Dx); Hyperlipidemia, unspecified hyperlipidemia type; Neuropathy 04/06/2025 Travel from Last 3 Months Immunizations Immunization Administration Dates Next Due Hep A, Adult 06/30/2019,10/02/2018 Influenza, injectable, quadrivalent 07/13/2020,1 11/17/2018 Influenza, injectable, quadrivalent, preservativ e free 09/19/2022 Pneumococcal Polysaccharide PPV23 11/26/2018 Family History Medical History Relation Name Comments Arthritis Other 1 Cardiac disorder Other 2 Diabetes Other 3 Hypertension Other 4 Other cancer Other 5 Relation Name Status Comments Other 1 Other 2 Other 3 Other 4 Other 5 Social History Tobacco Use Types Packs/Day Years Used Date Smoking Tobacco: Former Cigarettes 0.5 30 1 993 - 2022 Smokeless Tobacco: Never Tobacco Cessation:Counseling Given: [...] Orientation Straight 03/13/2023 4: 59 PM EDT Last Filed Vital Signs Vital Sign Reading Time Taken Comments Blood Pressure 105/69 04/06/2025 1:55 PM EDT Pulse 90 04/06/2025 1:55 PM EDT Temperature 36.6 C (97.9 F) 11/12/2019 8:41 AM EST Respiratory Rate 18 11/26/2018 10:07 AM EST Oxygen Saturation - - Inhaled Oxygen Concentration - - Weight 89.7 kg (197 lb 12 oz) 04/06/2025 1:55 PM EDT Height 175.3 cm (5' 9 ) 12/21/2024 12:34 PM EDT Body Mass Index 29.2 12/21/2024 12:34 PM EDT Plan of Treatment Upcoming Encounters Date Type Department Care Team (Late st Contact Info) Description 07/02/2025 12:20 PM EDT Office Visit [facility] [address] [place] [phone] Kira Ramirez D, MARINE STEAM FITTER HELPER [address] [place] [phone] 07/22/2025 3:40 PM EDT Office Visit [facility] Endocrinology [address] [place] [phone] Silvia Lewis S, MARINE STEAM FITTER HELPER [address] [place] [address] Health Maintenance Due Date Last Done Comments [facility]-Infant/Child/Adol SDOH Screenings 1970 Diabetes: Dental Exam 02/16/1980 [facility]- SDOH Screenings 02/16/1988 [facility]-Adult SDOH Screenings 02/16/1988 [facility]-DTaP,Tdap,and Td Vaccines (1 - Tdap) 1989 [facility]-Hepatitis B Vaccines (1 of 3 - 19+ 3-dose series) 1989 [facility]-Pap Smear 1991 [facility]-Cervical Cancer Screening 02/16/2000 [facility]-HPV/Cotest 02/16/2000 CT Colonography 2015 Colonoscopy 2015 FIT-DNA 2015 FIT 2015 FOBT 2015 Sigmoidoscopy 2015 [facility]-Colorectal Cancer Screening 2015 [facility]-Pneumococcal Vaccine: 50+ Years (2 of 2 - PCV) 11/26/2019 11/26/2018 [facility]-Breast Cancer Screening 02/16/2020 [facility]-Zoster Vaccines (1 of 2) 02/16/2020 [id number] Vaccine (2 - season) 2024 09/23/2023 [facility]-Influenza Vaccine (#1) 06/14/202507/14, 09/03/2023, 09/19/2022, Additional history exists [facility]-Diabetes: Hemoglobin A1C 10/04/2025, 12/21/2024, 09/21/2024, Additional history exists [facility]-Depression Screening 12/21/2025 12/21/2024, 12/12 [facility]-HIV Screening Completed 06/01/2014 [facility]-Hepatitis C Screening Completed 06/01/2014 [facility]-Hepatitis A Vaccines Completed 06/30/2019, 09/14 [facility]-Obesity Intervention Completed 025, 12/21/2024, 09/21/2024, Additional history exists HPV Vaccines Aged Out No longer eligi ble based on patient's age to complete this topic [facility]-HIB Vaccines Aged Out No longer e ligible based on patient's age to complete this topic [facility]-IPV Vaccines Aged Out No longer e ligible based on patient's age to complete this topic [facility]-Rotavirus Vaccines Aged Out No lo nger eligible based on patient's age to complete this topic Procedures Procedure Name Priority Date/Time Associated Diagnosis Comments POCT GLYCOSYLATED HEMOGLOBIN (HGB A1C) Routine 04/06/2025 2:04 PM EDT Type 2 diabetes mellitus with hyperglycemia, without long-term current use of insulin ([facility]) ALBUMIN, PLASMA Routine 03/05/2025 TOTAL BILIRUBIN, PLASMA Routine 03/05/2025 CREATININE, PLASMA Routine 03/05/2025 SODIUM, PLASMA Routine 03/05/2025 PROTHROMBIN TIME(PT) / INR Routine 03/05/2025 HEPATITIS C ANTIBODY W/REFLEX TO HCV QUANT PCR Routine 06/01/2014 4:27 PM EDT HIV 1/2 ANTIBODY/ANTIGEN SCREEN WITH REFLEX TO HIV I/II DIFFERENTIATION Routine 06/01/2014 4:27 PM EDT from Last 3 Months or Most Recently Relevant to Health Maintenance Results * POCT glycosylated hemoglobin (Hb A1C) (04/06/2025 2:04 PM EDT) POCT Hemoglobin A1C 5.1 <5.7% Non-Diabe tic % [facility] Kit Lot Number [id number] [facility] Kit Expiration Date 01/11/2027 [facility] Blood Venous blood specimen / Unknown 04/06/2025 2:04 PM EDT Silvia Lewis MARINE STEAM FITTER HELPER POINT OF CARE TEST ENTER/ED IT ORDERABLES Final Result [facility] [address] [place] [address] * Creatinine, Plasma (03/05/2025) External Creatinine Blood 1.1 mg/dL Blood Venous blood specimen / Unknown 03/05/2025 Historical Provider LAB BLOOD ORDERABLES Lesly l Result * Prothrombin Time/INR (03/05/2025) External Prothrombin Time (PT) 13.6 External INR - Internormal Ratio 1.3 Blood Venous blood specimen / Unknown 03/05/2025 Result [facility] Provider LAB BLOOD ORDERABLES Lesly l Result * Sodium, Plasma (03/05/2025) External Sodium 135 mmol/L Blood Venous blood specimen / Unknown 03/05/2025 Result [facility] Provider LAB BLOOD ORDERABLES Lesly l Result * Total Bilirubin, Plasma (03/05/2025) Pathologist [facility] External Bilirubin Total 1.6 mg/dL Blood Venous blood specimen / Unknown 03/05/2025 Result [facility] Provider LAB BLOOD ORDERABLES Lesly l Result * Albumin, Plasma (03/05/2025) Pathologist [facility] External Albumin 3.2 g/dL Blood Venous blood specimen / Unknown 03/05/2025 Result [facility] Provider LAB BLOOD ORDERABLES Lesly l Result * HIV 1 & 2 Antibody/Antigen Screen (06/01/2014 4:27 PM EDT) Pathologist [facility] HIV 1 Result NONREACTIVE Screening for HIV 1 and 2 antibodies is NONREACTIVE. No confirmatory testing is required. SUNQUEST 06/01/2014 4:27 PM EDT 06/01/2014 5:40 PM EDT Result [facility] Provider LAB BLOOD ORDERABLES Lesly l Result SUNQUEST * Hepatitis C Antibody (06/01/2014 4:27 PM EDT) Pathologist [facility] Hepatitis C Antibody NEGATIVE Reference Range: Negative SUNQUEST 06/01/2014 4:27 PM EDT 06/01/2014 5:40 PM EDT us Historical Provider LAB BLOOD ORDERABLES Lesly blake Result SUNQUEST from Last 3 Months or Most Recently Relevant to Health Maintenance Insurance [employer] Care Teams Diabetes Education Coordinator Relationship Specialty Start Date End Date Jessica Man APRN [address] [place] [address] PCP - General 02/24/21 Mary Lim APRN [address] [place] [address] Referring Physician Gastroenterology 05/11/25
--- OUTSIDE RECORDS SUMMARY | 2025-05-25 15:54 | XMS_ITS | Encounter Summary ---
Author Organization [facility] Address [address] [place] [address] Care Team Providers Care Palliative Nurse Name Role Phone Jessica Man APRN Primary Care Provider [phone] Mary Lim DIRECTOR OF HUMAN RESOURCES Unavailable [phone] Reason for Referral * Transplant (Routine) - Pending Review Specialty Diagnoses / Procedures Referred By Turner t Referred To Contact Transplant Diagnoses End-stage liver disease (CMS/HCC) Mary Lim, NGUYỄN [address] [place] [address] Phone: tel: fax: [facility] [address] [address] Phone: tel: fax: Referral ID Status Reason Start Date Expiration Date Visits Requested Visits Authorized [id number] Pending Review Specialty Services Required 05/11/2025 12/09/[phone] Reason for Visit * Reason Comments Referral - Liver Txp Encounter Details Date Type Department Care Team (Late st Contact Info) Description 05/11/2025 Telephone [facility] [address] [address] [place]da [place]én[place] [address] Referral - Liver Txp Social History Tobacco [...] * Telephone Encounter - Edda Méndez - 05/11/2025 1:01 PM EDT New Patient referral from Mary Lim - scheduling pending insurance review. documented in this encounter Plan of Treatment Upcoming Encounters Date Type Department Care Team (Late st Contact Info) Description 07/02/2025 12:20 PM EDT Office Visit [facility] [address] [place] [phone] Kira Ramirez D, DIRECTOR OF HUMAN RESOURCES [address] [place] [phone] 07/22/2025 3:40 PM EDT Office Visit [facility] Endocrinology [address] [place] [phone] Silvia Lewis S, DIRECTOR OF HUMAN RESOURCES [address] [place] [phone] Scheduled Referrals Name Type Priority Associated Diagnoses Order Schedule Ambulatory referral to Solid Organ Transplant Team Outpatient Referral Routine End-stage liver disease (CMS/HCC) Ordered: 05/11/2025 documented as of this encounter Procedures Procedure Name Priority Date/Time Associated Diagnosis Comments CREATININE, PLASMA Routine 03/05/2025 PROTHROMBIN TIME(PT) / INR Routine 03/05/2025 SODIUM, PLASMA Routine 03/05/2025 TOTAL BILIRUBIN, PLASMA Routine 03/05/2025 ALBUMIN, PLASMA Routine 03/05/2025 documented in this encounter Results * Albumin, Plasma (03/05/2025) External Albumin 3.2 g/dL Blood Venous blood specimen / Unknown 03/05/2025 Result [facility] Provider LAB BLOOD ORDERABLES Lesly l Result * Total Bilirubin, Plasma (03/05/2025) External Bilirubin Total 1.6 mg/dL Blood Venous blood specimen / Unknown 03/05/2025 Result [facility] Provider LAB BLOOD ORDERABLES Lesly l Result * Creatinine, Plasma (03/05/2025) External Creatinine Blood 1.1 mg/dL Blood Venous blood specimen / Unknown 03/05/2025 Result [facility] Provider LAB BLOOD ORDERABLES Lesly l Result * Sodium, Plasma (03/05/2025) External Sodium 135 mmol/L Blood Venous blood specimen / Unknown 03/05/2025 Result [facility] LAB BLOOD ORDERABLES Lesly l Result * Prothrombin Time/INR (03/05/2025) External Prothrombin Time (PT) 13.6 External INR - Internormal Ratio 1.3 Blood Venous blood specimen / Unknown 03/05/2025 us Historical Provider LAB BLOOD ORDERABLES Lesly l Result documented in this encounter Visit Diagnoses Diagnosis End-stage liver disease (CMS/HCC)- Primary Other sequelae of chronic liver disease documented in this encounter Additional Health Concerns Assessment Noted Time PHQ-9 Depression Total Score: 7 12/22/19 12:39 PM EDT A fall risk assessment has been complete d for the patient 03/13/2023 9:53 AM EDT A Body Mass Index follow-up plan has been documented for the patient 04/06/2025 2:27 PM EDT documented as of this encounter Care Teams Palliative Nurse Relationship Specialty Start Date End Date Jessica Man APRN [address] [place] [address] PCP - General 02/24/21 Mary Lim APRN [address] [place], [place] [id number] Referring Physician Gastroenterology 05/11/25 documented as of this encounter
[2025-05-25 15:59] LABS: Hematocrit 27.0 % (37.0-47.0); Hemoglobin 8.9 g/dL (12.2-16.2); Immature Granulocytes % 0.4 %; Mean Corpuscular HGB Conc 33.0 g/dL (31.8-35.4); Mean Corpuscular Hemoglobin 26.4 pg (27.0-31.2); Mean Corpuscular Volume 80.1 fl (81-99); Nucleated Red Blood Cells % 0 %; Platelet Count 139 K/mm3 (142-424); Red Blood Count 3.37 M/mm3 (4.20-5.40); Red Cell Distribution Width-SD 54.0 fL; White Blood Count 7.9 K/mm3 (4.8-10.8)
[2025-05-25 16:13] LABS: Activated Partial Thrombo Time 30.2 seconds (22.8-30.6); INR 1.27 (0.9-1.1); Prothrombin Time 13.8 seconds (10.1-12.5)
[2025-05-25 16:14] LABS: Alanine Aminotransferase 37 U/L (12-78); Albumin Level 3.4 g/dl (3.5-5.0); Albumin/Globulin Ratio 1.0 (1.1-1.8); Alkaline Phosphatase 171 U/L (38-126); Anion Gap 8.2 mEq/L (5-15); Aspartate Amino Transferase 102 U/L (14-36); Bilirubin,Total 3.7 mg/dl (0.2-1.3); Blood Urea Nitrogen 29 mg/dl (7-17); Calcium 8.4 mg/dl (8.4-10.2); Carbon Dioxide 26 mmol/L (22.0-30.0); Chloride 102 mmol/L (98-107); Creatinine Clearance Estimated 74 mL/min (50-200); Creatinine,Serum 1.30 mg/dl (0.52-1.04); Estimated Glomerular Filt Rate 43 ml/min (>60); GFR (African American) 51 ML/MIN (>60); Globulin 3.4 g/dL (1.3-3.2); Glucose 90 mg/dl (74-100); Potassium 4.2 mmoL/L (3.5-5.1); Sodium 132 mmol/L (136-145); Total Protein,Serum 6.8 g/dl (6.3-8.2)
[2025-05-25 16:26] LABS: NT Pro Brain Natriuretic Pep. 213 pg/mL (0-125)
[2025-05-25 16:34] LABS: Troponin I < 0.01 ng/ml (0.00-0.034)
[2025-05-25] MEDS: ALBUMIN HUMAN 12.5 GM/50 ML BAG IV ×2 (16:42→16:52)
[2025-05-25 16:58] LABS: Source, Body Fld. Peritoneal Fluid
[2025-05-25 17:00] LABS: Appearance,Body Fld. Hazy; RBC,Body Fluid 1000 cells/uL (< 10 X 10^3); TNC,Body Fluid 158 cells/uL (< 1000); Volume,Body Fld. 7 mL
[2025-05-25 17:38] LABS: Mononuclear WBCs,Body Fluid 81 %; Polynuclear WBC,Body Fluid 19 %
[2025-05-26 14:12] LABS: Glucose, Body Fluid 96 mg/dL (.)
== END 2025-05-25 17:46 | disposition home or self-care (01) ==
PROVIDERS: Emergency Provider Student in an Organized Health Care Education/Training Program; PCP Nurse Practitioner Family
DX: R06.02 Shortness of breath (principal); K74.69 Other cirrhosis of liver; R18.8 Other ascites; R14.0 Abdominal distension (gaseous); R22.43 Localized swelling, mass and lump, lower limb, bilateral; J90 Pleural effusion, not elsewhere classified; E87.1 Hypo-osmolality and hyponatremia; Z87.891 Personal history of nicotine dependence
CPT/HCPCS: 49083; 71045; 80053; 82945; 83880; 84157; 84484; 85025; 85610; 85730; 87070; 87205; 89051; 96365; 99285; P9047

== ENCOUNTER 2025-06-04 14:48 | Emergency (ER) | payer SELFPAY ==
--- OUTSIDE RECORDS SUMMARY | 2025-04-06 13:40 | XMS_ITS | Encounter Summary ---
Author Organization [facility] Address [address] [place] [address] Care Team Providers Care Manager Programming Name Role Phone Jessica Man APRN Primary Care Provider Reason for Referral * Consultation (Routine) - Authorized Specialty Diagnoses / Procedures Referred By Turner ascencio Referred To Contact Diagnoses Type 2 diabetes mellitus with hyperglycemia, without long-term current use of insulin (CMS/HCC) Silvia Lewis APRN [address] [address] Phone: tel: fax: Referral ID Status Reason Start Date Expiration Date V isits Requested Visits Authorized [id number] Authorized 04/06/2025 10/06/2026 1 1 Reason for Visit * Reason Comments Diabetes * Consultation (Routine) - Closed Specialty Diagnoses / Procedures Referred By Turner ascencio Referred To Contact Diagnoses Type 2 diabetes mellitus with hyperglycemia, without long-term current use of insulin ([facility]/HCC) Silvia Lewis APRN [address] [address] Phone: tel: fax: Referral ID Status Reason Start Date Expiration Date Visits Re quested Visits Authorized [id number] Closed 12/21/2024 06/22/2026 1 1 Encounter Details Date Type Department Care Team (Late st Contact Info) Description 04/06/2025 1:40 PM EDT Office Visit [facility] Endocrinology [address] [place] [address] Silvia Lewis, SYSTEM SUPPORT ANALYST [address] [facility] [address] [place] [address] Type 2 diabetes mellitus with hyperglycemia, without long-term current use of insulin ([facility]) (Primary Dx); Hyperlipidemia, unspecified hyperlipidemia type; Neuropathy [...] per PCP, denies history sores,sees podiatry in [facility], declines need for foot exam -Labs: Jul 2024 per primary care provider (media tab) -Interval events: reports getting paracentesis for ascites now -sees GI in [place], Dr. Guthrie -seeing a neurologist in [place] -has seen a auto travel counselor in the past -using vape pen, using [...] and/or coordination of care. Electronically signed by: Silvia Lewis APRN [facility] ENDOCRINOLOGY [address] [place] [address]. [address] [place]. [address] PHONE [phone] FAX: [phone] documented in this encounter Plan of Treatment Upcoming Encounters Date Type Department Care Team (Late st Contact Info) Description 06/25/2025 7:30 AM EDT Clinical Support [facility] [place] [address] [place] [address] 06/25/2025 9:00 AM EDT Office Visit [facility] [place] [address] [place] [address] Orlando Fierro MD [address] [place] [address] 06/25/2025 9:40 AM EDT Office Visit [facility] [place] [address] [place] [address] Surgeon, Transplant Liver 07/02/2025 12:20 PM EDT Office Visit [facility] Medicine Specialties [address] [place] [address] Kira Ramirez, SYSTEM SUPPORT ANALYST [address] [place] [address] 07/22/2025 3:40 PM EDT Office Visit [facility] Endocrinology [address] [place] [address] Silvia Lewis, SYSTEM SUPPORT ANALYST [address] [place] [address] Scheduled Referrals Name Type Priority Associated Diagnoses Orde r Schedule Follow Up [facility] Outpatient Referral Routine Type 2 diabetes mellitus with hyperglycemia, without long-term current use of insulin ([facility]) Expected: 07/07/2025, Expires: 10/08/2026 documented as of this encounter Procedures Procedure Name Priority Date/Time Associated Diagnosis Comments POCT GLYCOSYLATED HEMOGLOBIN (HGB A1C) Routine 04/06/2025 2:04 PM EDT Type 2 diabetes mellitus with hyperglycemia, without long-term current use of insulin ([facility]) documented in this encounter Results * POCT glycosylated hemoglobin (Hb A1C) (04/06/2025 2:04 PM EDT) POCT Hemoglobin A1C 5.1 <5.7% Non-Diabe tic % [employer] [facility] Kit Lot Number [id number] [facility] Kit Expiration Date 01/11/2027 [facility] Blood Venous blood specimen / Unknown 04/06/2025 2:04 PM EDT us Silvia Lewis SYSTEM SUPPORT ANALYST POINT OF CARE TEST ENTER/ED IT ORDERABLES Final Result [facility] [address] [place] [address] documented in this encounter Visit Diagnoses Diagnosis Type 2 diabetes mellitus with hyperglycemia, without long-term current use of insulin ([facility])- Primary Hyperlipidemia, unspecified hyperlipidemia type Neuropathy Mononeuritis [...] documented as of this encounter Care Teams Manager Programming Relationship Specialty Start Date End Date Jessica Man, NGUYỄN [address] [place] [address] PCP - General 02/24/21 documented as of this encounter
[2025-06-04] VITALS (9 sets, daily range): BP systolic 100–140; BP diastolic 60–75; PULSE 57–87; RESP 16–20; TEMP 36.7–36.8; O2SAT 98; BMI 37.8
--- OUTSIDE RECORDS SUMMARY | 2025-06-04 15:24 | XMS_ITS | Clinical Summary ---
Author Organization [facility] Address [address] [place] [address] Care Team Providers Care Nursery Rn Name Role Phone Jessica Man APRN Primary Care Provider [phone] Allergies Active Allergy Reactions Criticality Noted Date [...] for 1 day. 4 Active Continuous Glucose Training Consultant (Dexcom G7 Training Consultant) device USE TO MONITOR BLOOD SUGAR DIRECTED 4 Active Continuous Glucose Sensor (Dexcom G7 Sensor) [facility] USE TO MONITOR BLOOD SUGAR. REPLACE EVERY 10 DAYS 4 Active Continuous Glucose Transmitter (Dexcom G6 Transmitter) [facility] [place]U TO MEASURE BLOOD SUGAR DIRECTED. REPLACE [...] Needle Jazlyn U/F 32G X 4 MM [facility] USE TO INJECT INSULIN 4 TIMES EACH [...] false negative. Will order in lab PSG. [place] 17. Preop cardiovascular exam 03/17/2024 Encounter for [...] C SCREENING Completed 06/01/2014 Insurance [employer] Care Teams Nursery Rn Relationship Specialty Start Date End Date Jessica Man APRN [address] [place] [address] PCP - General Nurse Practitioner 03/17/24
--- OUTSIDE RECORDS SUMMARY | 2025-06-04 15:24 | XMS_ITS | Encounter Summary ---
Author Organization [facility] Address [address] [place] [address] Care Team Providers Care Pin Cleaner Name Role Phone Jessica Man TELECOMMUNICATION OPERATOR Primary Care Provider [phone] Mary Lim TELECOMMUNICATION OPERATOR Unavailable [phone] Reason for Referral * Consultation (Routine) - Closed Specialty Diagnoses / Procedures Referred By Contac t Referred To Contact Endocrinology Diagnoses Type 2 diabetes mellitus with diabetic neuropathy, unspecified whether penitentiary insulin use (CMS/HCC) Jessica Man, TELECOMMUNICATION OPERATOR [address] [place] [address] Phone: tel: fax: [facility] [address] [place] [address] Phone: tel: fax: Referral ID Status Reason Start Date Expiration Date V isits Requested Visits Authorized [id number] Closed Specialty Services Required 10/10/2022 04/10/2024 1 1 Encounter Details Date Type Department Care Team (Late st Contact Info) Description 10/10/2022 [facility] [address] [place] [address] Jessica Man, TELECOMMUNICATION OPERATOR [address], [place] [id number] Type 2 diabetes mellitus with diabetic neuropathy, unspecified whether penitentiary insulin use (CMS/HCC) (Primary Dx) Social History [...] Description 06/25/2025 7:30 AM EDT Clinical Support [facility] [place] [address] [facility] [address] [place] [address] 06/25/2025 9:00 AM EDT Office Visit [facility] [place] [address] [place] [address] Orlando Fierro MD [address] [facility] [address] [place] [address] 06/25/2025 9:40 AM EDT Office Visit [facility] [place] [address] [facility] [address] [place] [phone] Surgeon, Transplant Liver 07/02/2025 12:20 PM EDT Office Visit [facility] [address] [place] [address] Kira Ramirez D, TELECOMMUNICATION OPERATOR [address] [facility] [address] [place] [address] 07/22/2025 3:40 PM EDT Office Visit [facility] Endocrinology [address] [place] [phone] Silvia Lewis S, TELECOMMUNICATION OPERATOR [address] [place] [phone] Scheduled Referrals Name Type Priority Associated Diagnoses Order Schedule Ambulatory referral to Endocrinology Outpatient Referral Routine Type 2 diabetes mellitus with diabetic neuropathy, unspecified whether penitentiary insulin use (CMS/HCC) Expected: 10/10/2022 (Approximate), Expires: 04/10/2024 documented as of this encounter Visit Diagnoses Diagnosis Type 2 diabetes mellitus with diabetic neuropathy, unspecified whether penitentiary insulin use (CMS/HCC)- Primary documented in this encounter Care Teams Pin Cleaner Relationship Specialty Start Date End Date Jessica Man, TELECOMMUNICATION OPERATOR [address] [place] [address] PCP - General 02/24/21 Mary Lim, TELECOMMUNICATION OPERATOR [address] [place] [address] Referring Physician Gastroenterology 05/11/25 documented as of this encounter
--- OUTSIDE RECORDS SUMMARY | 2025-06-04 15:24 | XMS_ITS | Encounter Summary ---
Author Organization [facility] Address [address] [place] [address] Care Team Providers Care Customer Order Clerk Name Role Phone Jessica Man APRN Primary Care Provider [phone] Mary Lim APRN Unavailable [phone] Reason for Referral * Transplant (Routine) - Pending Review Specialty Diagnoses / Procedures Referred By Contac t Referred To Contact Transplant Diagnoses End-stage liver disease (CMS/HCC) Mary Lim APRN [address] [place] [address] Phone: tel: fax: [facility] [address] [address] Phone: tel: fax: Referral ID Status Reason Start Date Expiration Date Visits Requested Visits Authorized [id number] Pending Review Specialty Services Required 05/11/2025 12/09/[phone] Reason for Visit * Reason Comments Referral - Liver Txp Encounter Details Date Type Department Care Team (Late st Contact Info) Description 05/11/2025 Telephone [facility] [address] [address] Edda Méndez [place] [phone] Referral - Liver Txp Social History Tobacco Use Types Packs/Day Years Used Date Smoking Tobacco: Former Cigarettes 0.5 30 1 2022 Smokeless Tobacco: Never Comments:Smoking for 30+ [...] EDT Clinical Support [facility] [place] [address] [place] [address] 06/25/2025 9:00 AM EDT Office Visit [facility] [place] [address] [place] [address] Orlando Fierro MD [address] [facility] [address] [place] [address] 06/25/2025 9:40 AM EDT Office Visit [facility] [place] [address] [place] [address] Surgeon, Transplant Liver 07/02/2025 12:20 PM EDT Office Visit [facility] Medicine [facility]ties [address] [place] [address] Ashley, Kira D, ROUTE DELIVERER [address] [place] [address] 07/22/2025 3:40 PM EDT [facility] [address] [place] [phone] Silvia Lewis S, ROUTE DELIVERER [address] [place] [address] Scheduled Referrals Name Type Priority [...] Unknown 03/05/2025 Historical Provider LAB BLOOD ORDERABLES Final R esult * Total Bilirubin, Plasma (03/05/2025) External Bilirubin Total 1.6 mg/dL Blood Venous blood specimen / Unknown 03/05/2025 Historical Provider LAB BLOOD ORDERABLES Final R esult * Creatinine, Plasma (03/05/2025) External Creatinine Blood 1.1 mg/dL Blood Venous blood specimen / Unknown 03/05/2025 Result [facility] Provider LAB BLOOD ORDERABLES Final R esult * Sodium, Plasma (03/05/2025) External Sodium 135 mmol/L Blood Venous blood specimen / Unknown 03/05/2025 Result [facility] Provider LAB BLOOD ORDERABLES Final R esult * Prothrombin Time/INR (03/05/2025) External Prothrombin Time (PT) 13.6 External INR - Internormal Ratio 1.3 Blood Venous blood specimen / Unknown 03/05/2025 Result [facility] Provider LAB BLOOD ORDERABLES Final R esult documented in this encounter Visit Diagnoses Diagnosis [...] documented as of this encounter Care Teams Customer Order Clerk Relationship Specialty Start Date End Date Jessica Man APRN [address] [place] [address] PCP - General 02/24/21 Mary Lim APRN [address] [place] [address] Referring Physician Gastroenterology 05/11/25 documented as of this encounter
--- OUTSIDE RECORDS SUMMARY | 2025-06-04 15:24 | XMS_ITS ---
Author Organization [facility] Address [address] [place] [address] Care Team Providers Care Production Team Manager Name Role Phone Jessica Man APRN Primary Care Provider Mary Lim APRN Unavailable Transplant Episode Liver Candidate [facility] ([place], [place]) - SANDRA Referred on 05/11/2025 Marked as Active on 05/11/2025 Liver CoordinatorRealice Méndez Fax: N/A Email: N/A Scores Score Value Updated Expires Exceptions/[facility] CPRA Not available MELD (Calc) 15 03/05/2025 Care Team Name Role Phone Fax Email Edda Méndez Liver Coordinator [phone] N/A N/A Mary Lim APRN Referring Physician [phone] N/A Jessica Man APRN Primary Care Provider [phone] N/A Elaine Banerjee Editor Continuity And Script [phone] N/A N/A Donnie Jordan MD Surgeon [phone] N/A Events Pre-Transplant Referred: 05/11/2025 Appointments (05/04/2025 - 07/05/2025) When With Visit Type Description 06/25/2025 Transplant - Surgeon, T Initial Clinic Evaluation 06/25/2025 Transplant LAB 06/25/2025 Transplant - Marianna Fierro Initial Clinic Evaluation
--- OUTSIDE RECORDS SUMMARY | 2025-06-04 15:24 | XMS_ITS | Encounter Summary ---
Author Organization [facility] Address [address] [place] [address] Care Team Providers Care Mold Clamper Name Role Phone Jessica Man BIOMASS PLANT TECHNICIAN Primary Care Provider [phone] Mary Lim BIOMASS PLANT TECHNICIAN Unavailable [phone] Encounter Details Date Type Department Care Team (Late st Contact Info) Description 05/24/2025 Telephone [facility] [address] [facility] [address] [place] [address] Edda Méndez [place] [phone] Social History Tobacco Use Types Packs/Day Years [...] Description 06/25/2025 7:30 AM EDT Clinical Support [facility] [address] [place] [address] 06/25/2025 9:00 AM EDT Office Visit [facility] [place] [address] [place] [address] Orlando Fierro MD [address] [place] [address] 06/25/2025 9:40 AM EDT Office Visit [facility] [place] [address] [facility] [address] [place] [address] Surgeon, Transplant Liver 07/02/2025 12:20 PM EDT Office Visit [facility] Special[facility] [address] [place] [address] Kira Ramirez D, BIOMASS PLANT TECHNICIAN [address] [facility] [address] [place] [address] 07/22/2025 3:40 PM EDT [facility] [address] [place] [address] Silvia Lewis S, BIOMASS PLANT TECHNICIAN [address] [place] [address] documented as of this encounter [...] documented as of this encounter Care Teams Mold Clamper Relationship Specialty Start Date End Date Jessica Man APRN [address] [place] [address] PCP - General 02/24/21 Mary Lim APRN [address] [place] [address] Referring Physician Gastroenterology 05/11/25 documented as of this encounter
--- OUTSIDE RECORDS SUMMARY | 2025-06-04 15:24 | XMS_ITS | Encounter Summary ---
Author Organization [facility] Address [address] [place] [address] Care Team Providers Care Manufacturer Agent Name Role Phone Jessica Man USER EXPERIENCE MANAGER Primary Care Provider [phone] Mary Lim USER EXPERIENCE MANAGER Unavailable [phone] Encounter Details Date Type Department Care Team (Late st Contact Info) Description 06/01/2025 Telephone [facility] [address] [facility] [address] [place] [address] Edda Méndez [place] [phone] Social History Tobacco Use Types Packs/Day Years [...] * Telephone Encounter - Edda Méndez - 06/01/2025 10:53 AM EDT Returned a call to Ms Theodore - updated insurance information to Danielle AYALA - added it to her chart.She will bring the card with her to her appointment assuming she receives it in a timely manner. documented in this encounter Plan of Treatment Upcoming Encounters Date Type Department Care Team (Late st Contact Info) Description 06/25/2025 7:30 AM EDT Clinical Support [facility] [address] [facility] [address] [place] [address] 06/25/2025 9:00 AM EDT Office Visit [facility] Trans[facility] [place] [address] [facility] [address] [place] [address] Orlando Fierro MD [address] [facility] [address] [place] [address] 06/25/2025 9:40 AM EDT Office Visit [facility] [address] [facility] [address] [place] [address] Surgeon, Transplant Liver 07/02/2025 12:20 PM EDT Office Visit [facility] Medicine Specialties [address] 2[address] [place] [address] Kira Ramirez, USER EXPERIENCE MANAGER [address] [facility] [address] [place] [address] 07/22/2025 3:40 PM EDT Office Visit [facility] Endocrinology [address] [place] [address] Silvia Lewis S, USER EXPERIENCE MANAGER [address] [place] [address] documented as of this encounter Visit Diagnoses [...] documented as of this encounter Care Teams Manufacturer Agent Relationship Specialty Start Date End Date Jessica Man APRN [address] [place] [address] PCP - General 02/24/21 Mary Lim APRN [address] [place] [address] Referring Physician Gastroenterology 05/11/25 documented as of this encounter
--- OUTSIDE RECORDS SUMMARY | 2025-06-04 15:24 | XMS_ITS | Encounter Summary ---
Author Organization [facility] Address [address] [place] [address] Care Team Providers Care Party Demonstrator Name Role Phone Jessica Man DETASSELER Primary Care Provider [phone] Mary Lim DETASSELER Unavailable [phone] Reason for Referral * Consultation (Routine) - Pending Review Specialty Diagnoses / Procedures Referred By Contac t Referred To Contact Transplant Diagnoses End-stage liver disease (CMS/HCC) Donnie Jordan MD [address] [address] Phone: tel: fax: [facility]plant [place] [address] [address] Phone: tel: fax: Referral ID Status Reason Start Date Expiration Date Visits Requested Visits Authorized [id number] Pending Review Specialty Services Required 05/26/2025 11/25/2026 1 1 Reason for Visit * Reason Comments Appointment Scheduling Encounter Details Date Type Department Care Team (Late st Contact Info) Description 05/26/2025 Telephone [facility] Transplant [address] [address] Edda Méndez [place] [phone] Appointment (Scheduling) Social History Tobacco Use Types Packs/Day Years [...] * Telephone Encounter - Edda Méndez - 05/26/2025 9:50 AM EDT Called to schedule New Patient Pre-Liver Initial Clinic Evaluation. Spoke to Ms Theodore - scheduled for 06/25/2025 at 7:15am. Per the conversation with Pau Ga yesterday re Ms Theodore insurance situation - she can attend the New Patient appointment but until her insurance situation is resolved she cannot schedule beyond this first appointment. Ms Theodore hopes to have a solution by the time she is scheduled to come to clinic. New Patient materials attached to [email or web address]. Notified referring - left voicemail message for Shilpi Henry. documented in this encounter Plan of Treatment Upcoming Encounters Date Type Department Care Team (Late st Contact Info) Description 06/25/2025 7:30 AM EDT Clinical Support [facility] [address] [place] [address] 06/25/2025 9:00 AM EDT Office Visit [facility] [address] [place] [address] Orlando Fierro MD [address] [place] [address] 06/25/2025 9:40 AM EDT Office Visit [facility] [address] [place] [address] Surgeon, Transplant Liver 07/02/2025 12:20 PM EDT Office Visit [facility] Medicine Specialties [address] [place] [address] Kira Ramirez, DETASSELER [address] [place] [address] 07/22/2025 3:40 PM EDT Office Visit [facility] Endocrinology [address] [place] [address] Silvia Lewis, DETASSELER [address] [place] [address] Scheduled Orders Name Type Priority Associated Diagnoses Orde r Schedule ABO/Rh Lab Routine End-stage liver disease (CMS/HCC) Expected: 06/25/2025 (Approximate), Expires: 11/27/2026 Alpha fetoprotein, serum Lab Routine End-stage liver disease (CMS/HCC) Expected: 06/25/2025 (Approximate), Expires: 11/27/2026 Hemogram (CBC) Lab Routine End-stage liver disease (CMS/HCC) Expected: 06/25/2025 (Approximate), Expires: 11/27/2026 Comprehensive metabolic panel Lab Routine End-stage liver disease (CMS/HCC) Expected: 06/25/2025 (Approximate), Expires: 11/27/2026 Protime-INR Lab Routine End-stage liver disease (CMS/HCC) Expected: 06/25/2025 (Approximate), Expires: 11/27/2026 Comprehensive Urine Drug Screening, Qualitative Assay, >= 27 Drug Classes Lab Routine End-stage liver disease (CMS/HCC) Expected: 06/25/2025 (Approximate), Expires: 11/27/2026 Nicotine Cotinine Metabolite Lab Routine End-stage liver disease (CMS/HCC) Expected: 06/25/2025 (Approximate), Expires: 11/27/2026 Pain Management, Quantitative Urine Drug Testing Lab Routine End-stage liver disease (CMS/HCC) Expected: 06/25/2025 (Approximate), Expires: 11/27/2026 Alcohol Urine Lab Routine End-stage liver disease (CMS/HCC) Expected: 06/25/2025 (Approximate), Expires: 11/27/2026 Hepatitis C Antibody Lab Routine End-stage liver disease (CMS/HCC) Expected: 06/25/2025 (Approximate), Expires: 11/27/2026 Hepatitis B Surface Antigen Lab Routine End-stage liver disease (CMS/HCC) Expected: 06/25/2025 (Approximate), Expires: 11/27/2026 HEPATITIS B SURFACE ANTIBODY, QUANTITATIVE Lab Routine End-stage liver disease (CMS/HCC) Expected: 06/25/2025 (Approximate), Expires: 11/27/2026 Hepatitis A Antibody IgG Lab Routine End-stage liver disease (CMS/HCC) Expected: 06/25/2025 (Approximate), Expires: 11/27/2026 Scheduled Referrals Name Type Priority Associated Diagnoses Order Schedule Initial Clinic Evaluation - Transplant Hepatology Outpatient Referral Routine End-stage liver disease (CMS/HCC) 1 Occurrences starting 05/26/2025 until 11/27/2026 documented as of this encounter Visit Diagnoses Diagnosis End-stage liver [...] documented as of this encounter Care Teams Party Demonstrator Relationship Specialty Start Date End Date Jessica Man APRN [address] [place] [address] PCP - General 02/24/21 aMry Lim APRN [address] [place] [address] Referring Physician Gastroenterology 05/11/25 documented as of this encounter
--- OUTSIDE RECORDS SUMMARY | 2025-06-04 15:24 | XMS_ITS | Clinical Summary ---
Author Organization [facility] Address [address] [place] [address] Care Team Providers Care Truck Driver'S Offsider Name Role Phone Jessica Man RETAIL MERCHANDISER TECHNICIAN Primary Care Provider [phone] Mary Lim RETAIL MERCHANDISER TECHNICIAN Unavailable [phone] Allergies Active Allergy Reactions Criticality Noted Date [...] Encounters Date Type Department Care Team Description 06/04/2025 Telephone [facility] Endocrinology [address] [place] [address] Silvia Lewis APRN 06/02/2025 Telephone [facility] Endocrinology [address] [place] [address] Silvia Lewis, RETAIL MERCHANDISER TECHNICIAN Prior-authorization/ins urance Verification 06/01/2025 Telephone [facility] [address] [address] Edda Méndez 05/26/2025 Telephone [facility] [address] [address] Edda Méndez Appointment (Scheduling) 05/24/2025 Telephone [facility] [address] [address] Edda Méndez 05/17/2025 Telephone [facility] [address] [address] Edda Méndez Referral - Liver Txp 05/11/2025 Telephone [facility] [address] [address] Edda Méndez Referral - Liver Txp 04/06/2025 1:40 PM EDT Office Visit [facility] Endocrinology [address] [place] [address] Silvia Lewis, RETAIL MERCHANDISER TECHNICIAN Type 2 diabetes mellitus with hyperglycemia, without long-term current use of insulin ([facility]) (Primary Dx); Hyperlipidemia, unspecified hyperlipidemia [...] Description 06/25/2025 7:30 AM EDT Clinical Support [facility] [address] [facility] [address] [place] [address] 06/25/2025 9:00 AM EDT Office Visit [facility] [address] [place] [address] Orlando Fierro MD [address] [place] [address] 06/25/2025 9:40 AM EDT Office Visit [facility] [address] [place] [address] Surgeon, Transplant Liver 07/02/2025 12:20 PM EDT Office Visit [facility] Medicine Specialties [address]nd [place] [address] Kira Ramirez, RETAIL MERCHANDISER TECHNICIAN [address] [place] [address] 07/22/2025 3:40 PM EDT Office Visit [facility] Endocrinology [address] [place] [address] Silvia Lewis, RETAIL MERCHANDISER TECHNICIAN [address] [facility] [address] [place] [address] Health Maintenance Due Date Last [...] 02/16/2020 [facility]-Zoster Vaccines (1 of 2) 02/16/2020 [id number]-45 Vaccine (2 - season) 2024 09/23/2023 [facility]-Influenza [...] hyperglycemia, without long-term current use of insulin ([facility]) ALBUMIN, PLASMA Routine 03/05/2025 TOTAL BILIRUBIN, PLASMA [...] tic % HEALTHCARE LAB Kit Lot Number [id number] [facility] Kit Expiration Date 01/11/2027 [facility] Blood Venous blood specimen / Unknown 04/06/2025 2:04 PM EDT Result [facility] Silvia Lewis RETAIL MERCHANDISER TECHNICIAN POINT OF CARE TEST ENTER/ED IT ORDERABLES Final Result Performing Organization Address City/State/[facility] Co de Phone Number [facility] [address] [place] [address] * Creatinine, Plasma (03/05/2025) External Creatinine Blood 1.1 mg/dL Blood Venous blood specimen / Unknown 03/05/2025 Result [facility] Historical Provider LAB BLOOD ORDERABLES Final R esult * Prothrombin Time/INR (03/05/2025) External Prothrombin Time (PT) 13.6 External INR - Internormal Ratio 1.3 Blood Venous blood specimen / Unknown 03/05/2025 Result [facility] Provider LAB BLOOD ORDERABLES Final R esult * Sodium, Plasma (03/05/2025) External Sodium 135 mmol/L Blood Venous blood specimen / Unknown 03/05/2025 Result [facility] Provider LAB BLOOD ORDERABLES Final R esult * Total Bilirubin, Plasma (03/05/2025) Pathologist [facility] External Bilirubin Total 1.6 mg/dL Blood Venous blood specimen / Unknown 03/05/2025 Result [facility] Provider LAB BLOOD ORDERABLES Final R esult * Albumin, Plasma (03/05/2025) Pathologist [facility] External Albumin 3.2 g/dL Blood Venous blood specimen / Unknown 03/05/2025 Result [facility] Provider LAB BLOOD ORDERABLES Final R esult * HIV 1 & 2 Antibody/Antigen Screen (06/01/2014 4:27 PM EDT) Pathologist [facility] HIV 1 Result NONREACTIVE Screening for HIV 1 and 2 antibodies is NONREACTIVE. No confirmatory testing is required. SUNQUEST 06/01/2014 4:27 PM EDT 06/01/2014 5:40 PM EDT Result [facility] Provider LAB BLOOD ORDERABLES Final R esult SUNQUEST * Hepatitis C Antibody (06/01/2014 4:27 PM EDT) Pathologist [facility] Hepatitis C Antibody NEGATIVE Reference Range: Negative SUNQUEST 06/01/2014 4:27 PM EDT 06/01/2014 5:40 PM EDT Result [facility] Provider LAB BLOOD ORDERABLES Final R esult SUNQUEST from Last 3 Months or Most Recently Relevant to Health Maintenance [place] [address] [place] [address] [facility]ID [facility] Care Teams Truck Driver'S Offsider Relationship Specialty Start Date End Date Jessica Man APRN [address] [place] [address] PCP - General 02/24/21 Mary Lim APRN [address] [place] [address] Referring Physician Gastroenterology 05/11/25
--- OUTSIDE RECORDS SUMMARY | 2025-06-04 15:24 | XMS_ITS | Encounter Summary ---
Author Organization [facility] Address [address] [place] [address] Care Team Providers Care Tub Attendant Name Role Phone Jessica Man SKI BASE TRIMMER Primary Care Provider [phone] Mary Lim SKI BASE TRIMMER Unavailable [phone] Reason for Visit * Reason Comments Referral - Liver Txp Encounter Details Date Type Department Care Team (Late st Contact Info) Description 05/17/2025 Telephone [facility] [address] [place] [address] Edda Méndez [place] [phone] Referral - Liver Txp Social History Tobacco [...] [facility] to [facility]. I [...] Description 06/25/2025 7:30 AM EDT Clinical Support [facility] [place] [address] [place] [address] 06/25/2025 9:00 AM EDT Office Visit [facility] [place] [address] [place] [address] Orlando Fierro MD [address] [place] [address] 06/25/2025 9:40 AM EDT Office Visit [facility] [place] [address] [place] [address] Surgeon, Transplant Liver 07/02/2025 12:20 PM EDT Office Visit [facility] Medicine Specialties [address] [place] [address] Kira Ramirez, SKI BASE TRIMMER [address] [place] [address] 07/22/2025 3:40 PM EDT Office Visit [facility] Endocrinology [address] [place] [address] Silvia Lewis, SKI BASE TRIMMER [address] [place] [address] documented as of this encounter Visit Diagnoses [...] documented as of this encounter Care Teams Tub Attendant Relationship Specialty Start Date End Date Jessica Man APRN [address] [place] [address] PCP - General 02/24/21 Mary Lim APRN [address] [place] [address] Referring Physician Gastroenterology 05/11/25 documented as of this encounter
--- OUTSIDE RECORDS SUMMARY | 2025-06-04 15:24 | XMS_ITS | Encounter Summary ---
Author Organization [facility] Address [address] [place] [address] Care Team Providers Care Sanitation Truck Driver Name Role Phone Jessica Man SHIFT BOSS Primary Care Provider Mary Lim SHIFT BOSS Unavailable [phone] Encounter Details Date Type Department Care Team (Late st Contact Info) Description 06/04/2025 Telephone [facility] Endocrinology [address] [place] [address] Silvia Lewis S, SHIFT BOSS [address] [facility] [address] [place] [address] Social History Tobacco Use Types Packs/Day Years [...] Description 06/25/2025 7:30 AM EDT Clinical Support [facility] [address] [place] [address] 06/25/2025 9:00 AM EDT Office Visit [facility] Transplant [place] [address] [place] [address] Orlando Fierro MD [address] [place] [address] 06/25/2025 9:40 AM EDT Office Visit [facility] Transplant [place] [address] [place] [address] Surgeon, Transplant Liver 07/02/2025 12:20 PM EDT Office Visit [facility] Medicine Specialties [address] [place] [address] Kira Ramirez, SHIFT BOSS [address] [place] [address] 07/22/2025 3:40 PM EDT Office Visit [facility] Endocrinology [address] [place] [address] Silvia Lewis S, SHIFT BOSS [address] [facility] [address] [place] [address] documented as of this encounter [...] documented as of this encounter Care Teams Sanitation Truck Driver Relationship Specialty Start Date End Date Jessica Man, SHIFT BOSS [address] [place] [address] PCP - General 02/24/21 Mary Lim APRN [address] [place] [address] Referring Physician Gastroenterology 05/11/25 documented as of this encounter
--- OUTSIDE RECORDS SUMMARY | 2025-06-04 15:24 | XMS_ITS | Encounter Summary ---
Author Organization [facility] Address [address] [place] [address] Care Team Providers Care Fur Clipper Name Role Phone Jessica Man MD UROLOGIST Primary Care Provider [phone] Mary Lim MD UROLOGIST Unavailable [phone] Reason for Visit * Reason Onset Date Comments Prior-authorization/insurance Verification 06/02 Encounter Details Date Type Department Care Team (Late st Contact Info) Description 06/02/2025 Telephone [facility] Endocrinology [address] [place] [address] Silvia Adrian, MD UROLOGIST [address] [facility] [address] [place] [address] Prior-authorization/in surance Verification Social History Tobacco Use Types Packs/Day Years [...] encounter Miscellaneous Notes * Telephone Encounter - Arminda Manning PharmD - 06/03/2025 9:38 AM EDT Prior authorization request received, however no PA is required. Medication: insulin glargine Additional info: dispensing pharmacy confirmed paid claim. * Telephone Encounter - Ceci Montaño - 06/02/2025 1:38 PM EDT Images from the original note were not included. Prior authorization requested for Lantus SoloStar 100unit/ML Pen-injectors. Ordered by Silvia Adrian. documented in this encounter Plan of Treatment Upcoming Encounters Date Type Department Care Team (Late st Contact Info) Description 06/25/2025 7:30 AM EDT Clinical Support [facility] [address] [place] [address] 06/25/2025 9:00 AM EDT Office Visit [facility] [address] [place] [address] Orlando Fierro MD [address] [place] [address] 06/25/2025 9:40 AM EDT Office Visit [facility] [address] [place] [address] Surgeon, Transplant Liver 07/02/2025 12:20 PM EDT Office Visit [facility] Medicine Specialties [address] [place] [address] Kira Ramirez, MD UROLOGIST [address] [place] [address] 07/22/2025 3:40 PM EDT [facility] [address] [place] [address] Silvia Adrian, MD UROLOGIST [address] [place] [address] documented as of this encounter [...] documented as of this encounter Care Teams Fur Clipper Relationship Specialty Start Date End Date Jessica Man APRN [address] [place] [address] PCP - General 02/24/21 Mary Lim APRN [address] [place] [address] Referring Physician Gastroenterology 05/11/25 documented as of this encounter
--- OUTSIDE RECORDS SUMMARY | 2025-06-04 15:24 | XMS_ITS | Encounter Summary ---
Author Organization Healthcare Address [address] [place] [address] Care Team Providers Care Chief Data Officer Name Role Phone Jessica Man APRN Primary Care Provider [phone] Encounter Details Date Type Department Care Team [...] Description 06/25/2025 7:30 AM EDT Clinical Support [facility] [address] [place] [phone] 06/25/2025 9:00 AM EDT Office Visit [facility] [address] [place] [address] Orlando Fierro MD [address] [place] [address] 06/25/2025 9:40 AM EDT Office Visit [facility] [address] [place] [address] Surgeon, Transplant Liver 07/02/2025 12:20 PM EDT Office Visit [facility] [address] [place] [address] Kira Ramirez, WELT MAKER [address] [facility] [address] [place] [address] 07/22/2025 3:40 PM EDT Office Visit [facility] [address] [place] [address] Silvia Lewis, WELT MAKER [address] [facility] [address] [place] [address] documented as of this encounter [...] documented as of this encounter Care Teams Chief Data Officer Relationship Specialty Start Date End Date Jessica Man, WELT MAKER [address] [place] [address] PCP - General 02/24/21 documented as of this encounter
--- NOTE | 2025-06-04 15:57 | HMH.EDGENADL ---
Discharge Plan Disposition Patient Disposition: Home, Self-Care Condition: Good Prescriptions Prescriptions: No Action hydrochlorothiazide 25 mg tablet 25 mg PO DAILY 30 Days Qty: 30 Patient Comments: TAKE 1 TABLET ONCE A DAY duloxetine 60 mg capsule,delayed release(DR/EC) 60 mg PO DAILY 30 Days Qty: 60 Patient Comments: TAKE 1 CAPSULE 2 TIMES A DAY aspirin 81 mg tablet,delayed release (DR/EC) 81 mg PO DAILY 30 Days Qty: 30 Patient Comments: TAKE 1 TABLET ONCE A DAY fenofibrate nanocrystallized 145 mg tablet 145 mg PO DAILY 30 Days Qty: 30 Patient Comments: TAKE 1 TABLET ONCE A DAY omeprazole 40 mg capsule,delayed release(DR/EC) 40 mg PO DAILY Qty: 30 Patient Comments: TAKE 1 CAPSULE ONCE A DAY cyclobenzaprine 10 mg tablet 10 mg PO TID PRN (Reason: pain) Qty: 90 Patient Comments: TAKE 1 TABLET 3 TIMES A DAY Linzess 290 mcg capsule PO DAILY PRN Patient Comments: TAKE 1 CAPSULE 1 TIME EACH DAY (DME) pen needle, diabetic [BD Ultra-Fine Jazlyn Pen Needle] 32 gauge x 5/32 needle See Rx Instructions .ROUTE .MEDSUPPLY Qty: 1200 Patient Comments: USE TO INJECT INSULIN 4 TIMES EACH DAY Rx Instructions: As directed Januvia 50 mg tablet PO DAILY Patient Comments: TAKE 1 TABLET 1 TIME EACH DAY rosuvastatin 20 mg tablet PO DAILY Patient Comments: TAKE 1 TABLET 1 TIME EACH DAY hydroxyzine HCl 25 mg tablet PO ONCE Patient Comments: TAKE 1 TABLET 1 TIME EACH DAY (DME) OneTouch Ultra Test Strip See Rx Instructions .ROUTE .MEDSUPPLY Qty: 10 Patient Comments: USE TO CHECK BLOOD SUGAR 3 TIMES EACH DAY Rx Instructions: As directed lamotrigine 150 mg tablet PO DAILY Patient Comments: TAKE 1 TABLET 1 TIME EACH DAY IN THE MORNING (DME) Dexcom G7 Sensor Device See Rx Instructions .ROUTE .MEDSUPPLY Qty: 1 Patient Comments: USE TO MONITOR BLOOD SUGAR. REPLACE EVERY 10 DAYS Rx Instructions: As directed insulin lispro 100 unit/mL insulin pen SQ DAILY Patient Comments: INJECT 6 UNITS UNDER THE SKIN 3 TIMES EACH DAY BEFORE MEALS. FOR EACH 30 UNITS THAT BLOOD SUGAR IS OVER 150, INCREASE DOSE BY 1 UNIT. DO NOT INJECT MORE THAN 60 UNITS IN 1 DAY. gabapentin 800 mg tablet PO DAILY Patient Comments: TAKE 1 TABLET 4 TIMES EACH DAY insulin glargine [Lantus Solostar U-100 Insulin] 100 unit/mL (3 mL) insulin pen SQ DAILY Patient Comments: INJECT 34 UNITS UNDER THE SKIN 1 TIME EACH DAY IN THE EVENING PLUS TITRATION ADVISED. MAX DOSE OF 50 UNITS A DAY. (DME) Dexcom G7 Marketing Automation Manager Misc See Rx Instructions .ROUTE .MEDSUPPLY Qty: 1 Patient Comments: USE TO MONITOR BLOOD SUGAR DIRECTED Rx Instructions: As directed (DME) Dexcom G6 Transmitter Device See Rx Instructions .ROUTE .MEDSUPPLY Qty: 1 Patient Comments: USU TO MEASURE BLOOD SUGAR DIRECTED. REPLACE AFTER 90 DAYS. Rx Instructions: As directed nicotine 21 mg/24 hr patch 24 hour 1 patch topical DAILY Patient Comments: APPLY 1 PATCH ONTO THE SKIN 1 TIME EACH DAY DIRECTED. REMOVE BEFORE APPLYING NEXT PATCH. ibuprofen 800 mg tablet PO PRN Patient Comments: TAKE 1 TABLET 3 TIMES EACH DAY WITH FOOD NEEDED FOR PAIN Clenpiq 10 mg-3.5 gram- 12 gram/175 mL solution 175 ml PO DAILY Qty: 350 0RF Rx Instructions: take first dose at 5-9PM evening before colonoscopy; 2nd dose the next day approximately 5 hrs before colonoscopy insulin glargine U-300 conc 300 UNIT/ML insulin pen 8 units SQ BID 30 Days Qty: 1 0RF glucagon HCl 1 MG recon soln 1 mg IJ NEEDED PRN (Reason: Blood Sugar - Low) Qty: 1 0RF Rx Instructions: Use as directed for hypoglycemic emergency. cefdinir 300 mg capsule 300 mg PO BID 5 Days Qty: 10 0RF Referrals Follow up/Referrals: Jessica Man [Primary Care Provider, Medical] - See instructions Activity Restrictions/Add. Instructions Additional Instructions/Restrictions: Please continue working on your insurance so that you can get set up with regularized outpatient paracentesis. If you have any new or worsening symptoms please return to the ER for further evaluation. Clinical Impressions Clinical Impression: Ascites Qualifiers: Ascites type: other type Qualified Code(s): R18.8 - Other ascites Instructions Patient Instructions: Ascites Print Language Print Language: Bulgarian Discharge ED Provider: Jean Paul Fink Adult HPI General Chief complaint: Shortness of Breath/Dyspnea Stated complaint: SOA Time Seen by Provider: 06/04/25 15:27 Mode of Arrival: Ambulatory Source of Information: Patient Description of Symptoms (Recalled from ER Triage Doc. by RN): patient presents to the ED today for increasing shortness of air after being seen at [facility] for a routine paracentisis. there were insurance issues so the patient was not able to get it done. Patient gets paracentesis' done weekly. History of Present Illness HPI narrative: Is a 55-year-old female patient, with past medical history of liver cirrhosis secondary to alpha-1 antitrypsin deficiency, who is presenting to the emergency department today for evaluation of ascites. Patient states that she was recently getting regularly scheduled paracentesis every 10 days at [facility]. However she has had a lapse in her insurance and she has been unable to have this procedure performed for the last 10 days. She did present here to our hospital on 05/25/2025 and had a therapeutic paracentesis performed without complication. She was ultimately discharged home. She states that since that time she has had progressive abdominal distention with some shortness of breath. She has not reported any symptoms consistent with hepatic encephalopathy. She has had no worsening jaundice. She states that when her ascites accumulates this month she does experience cramping in her abdomen that she is currently experiencing that. Otherwise she is asymptomatic Related Data Home Medications ?Medication ?Instructions ?Recorded ?Confirmed aspirin 81 mg tablet,delayed 81 mg PO DAILY preventitive 30 01/19/19 02/25/24 release days #30 tabs duloxetine 60 mg capsule,delayed 60 mg PO DAILY Nausea & vomiting 01/19/19 02/25/24 release 30 days #60 caps fenofibrate nanocrystallized 145 145 mg PO DAILY Cholesterol 30 01/19/19 02/25/24 mg tablet days #30 tabs hydrochlorothiazide 25 mg tablet 25 mg PO DAILY Fluid 30 days #30 01/19/19 02/25/24 tabs cyclobenzaprine 10 mg tablet 10 mg PO TID PRN pain #90 tabs 05/27/19 02/25/24 omeprazole 40 mg capsule,delayed 40 mg PO DAILY stomach #30 caps 05/27/19 02/25/24 release blood sugar diagnostic (OneTouch #10 ea 02/17/24 02/25/24 Ultra Test strips) blood-glucose sensor ([employer] G7 #1 ea 02/17/24 02/25/24 Sensor device) blood-glucose transmitter ([employer] #1 ea 02/17/24 02/25/24 G6 Transmitter device) blood-glucose,work measurement engineer,cont #1 ea 02/17/24 02/25/24 (Dexcom G7 Marketing Automation Manager) gabapentin 800 mg tablet mg PO DAILY 02/17/24 02/25/24 hydroxyzine HCl 25 mg tablet mg PO ONCE 02/17/24 02/25/24 ibuprofen 800 mg tablet mg PO PRN 02/17/24 02/25/24 insulin glargine 100 unit/mL (3 unit SQ DAILY 02/17/24 02/25/24 mL) subcutaneous pen (Lantus Solostar U-100 Insulin) insulin lispro 100 unit/mL SQ DAILY 02/17/24 02/25/24 subcutaneous pen lamotrigine 150 mg tablet mg PO DAILY 02/17/24 02/25/24 linaclotide 290 mcg capsule mcg PO DAILY PRN 02/17/24 02/25/24 (Linzess) nicotine 21 mg/24 hr daily 1 patch topical DAILY 02/17/24 02/25/24 transdermal patch pen needle, diabetic 32 gauge x #1,200 ea 02/17/24 02/25/24 (BD Ultra-Fine Ajzlyn Pen Needle) rosuvastatin 20 mg tablet mg PO DAILY 02/17/24 02/25/24 sitagliptin phosphate 50 mg tablet mg PO DAILY 02/17/24 02/25/24 (Januvia) Previous Rx's ?Medication ?Instructions ?Recorded glucagon HCl 1 mg solution for 1 mg IJ NEEDED PRN Blood Sugar 10/28/21 injection - Low #1 kit insulin glargine U-300 conc 300 8 units SQ BID 30 days #1 pen 10/28/21 unit/mL (1.5 mL) subcutaneous pen needle sod picosulf 10 mg-magnes 3.5 175 ml PO DAILY 2 doses #350 mL 05/05/24 gram-citric 12 gram/175 mL oral solution (Clenpiq) cefdinir 300 mg capsule 300 mg PO BID 5 days #10 caps 02/12/25 Allergies Allergy/AdvReac Type Severity Reaction Status Date / Time erythromycin base Allergy Mild Other Verified 05/25/25 15:18 empagliflozin (From Allergy Other Verified 05/25/25 15:18 Jardiance) [facility] Disclaimer: The information contained in this section may have been updated after the patient was seen, as this information can be updated by other users. Medical History (Updated 06/04/25 @ 20:42 by Jean Paul Fink DO) PTSD (post-traumatic stress disorder) Anxiety Depression Diabetes mellitus Cirrhosis of liver without mention of alcohol Esophagus disorder Surgical History (Updated 05/25/25 @ 15:17 by Leah Cabello, RN) History of abdominal paracentesis History of unilateral salpingectomy History of cholecystectomy Family History Other Asthma Cancer Coronary artery disease Diabetes FHx: mental illness Heart attack Hypertension Kidney disease Stroke Social History Smoking Status: Smoker, status unknown alcohol intake: never substance use type: denies use current occupational status: other Travel in the last 8 weeks?: None caffeine: Yes Have you lived/traveled outside US in past 30 days?: No Contact w/someone who lives/traveled outside US past 30 days?: No Exposure to someone with infectious disease in past 14 days?: No Do you have a fever (greater than 100.4 F or 38 C)?: No Have you tested positive for COVID-19?: No Exposed to someone with COVID-19 in past 14 days?: No Do you have a sore throat?: No Do you have a cough?: No Do you have any weakness?: No Do you have any diarrhea?: No Are you experiencing any unusual bleeding?: No Do you have any muscle aches/pain?: No Do you have any abdominal pain?: No Are you experiencing loss of taste or smell?: No Other Medical History Have you received the Flu Vaccine for this season: No Have you received the Pneumonia Vaccine: Yes ROS Obtained: Yes Systems reviewed as appropriate & no additional complaints except as documented Physical Exam General General appearance: other (See MDM) Respiratory Respiratory exam: Present other (See MDM) Cardiovascular Cardiovascular exam: Present other (See MDM) Neurological Exam Neurological exam: Present other (See MDM) Medical Decision Making Medical Records Medical records reviewed: Yes I reviewed the patient's medical records. Screening: Per USPSTF and CDC recommendations, given the prevalence of disease in our region, it is our hospital?s policy to screen for HIV and viral Hepatitis for all patients aged 18 and over and those with ongoing risk factors. Helder Inquiry Pt receiving controlled substance: No Helder was queried for this patient: No Vital Signs: 06/04/25 15:13 06/04/25 18:01 06/04/25 18:30 Temperature 98.3 F Temperature Source Temporal Artery Scan Pulse Rate [Left Radial] 57 L Respiratory Rate 16 16 18 Blood Pressure 103/61 L 108/64 L Blood Pressure [Left Arm] 120/67 Blood Pressure Mean 78 81 Blood Pressure Mean [Left Arm] 84 Blood Pressure Source [Left Arm] Automatic Cuff Blood Pressure Position [Left Arm] Sitting 02 Sat by Pulse Oximetry 98 Oxygen Delivery Method Room Air 06/04/25 18:35 06/04/25 19:00 06/04/25 19:03 Temperature Temperature Source Pulse Rate [Left Radial] Respiratory Rate 18 18 18 Blood Pressure 129/60 124/66 126/75 Blood Pressure [Left Arm] Blood Pressure Mean 82 89 92 Blood Pressure Mean [Left Arm] Blood Pressure Source [Left Arm] Blood Pressure Position [Left Arm] 02 Sat by Pulse Oximetry Oxygen Delivery Method 06/04/25 19:30 06/04/25 19:44 06/04/25 20:36 Temperature Temperature Source Pulse Rate [Left Radial] Respiratory Rate Blood Pressure 119/67 100/66 L Blood Pressure [Left Arm] Blood Pressure Mean 88 77 Blood Pressure Mean [Left Arm] Blood Pressure Source [Left Arm] Blood Pressure Position [Left Arm] 02 Sat by Pulse Oximetry Oxygen Delivery Method Room Air Lab Data Lab Results 06/04/25 16:04: Urine Color Yellow, Urine Appearance Clear, Urine pH 6.0, Ur Specific [place] 1.025, Urine Protein Negative, Urine Glucose (UA) Negative, Urine Ketones Negative, Urine Blood Negative, Urine Nitrate Negative, Urine Bilirubin Negative, Urine Urobilinogen 1.0, Ur Leukocyte Esterase Negative, Urine RBC None, Urine WBC 3-5, Ur Squamous Epith Cells 3-5, Calcium Oxalate Crystal 2+, Urine Bacteria 1+ 06/04/25 16:20: WBC 7.9, RBC 3.33 L, Hgb 8.9 L, Hct 27.0 L, MCV 81.1, MCH 26.7 L, MCHC 33.0, RDW 18.4 H, Plt Count 141 L, MPV 8.9, Neut % (Auto) 70.4, Lymph % (Auto) 14.0, [place] % (Auto) 9.9 H, Eos % (Auto) 4.7, Baso % (Auto) 0.6, Neut # (Auto) 5.5, Lymph # (Auto) 1.1, [place] # (Auto) 0.8, Eos # (Auto) 0.4, Baso # (Auto) 0.1, PT 13.7 H, INR 1.26 H, Sodium 135 L, Potassium 3.3 L, Chloride 103, Carbon Dioxide 26, Anion Gap 9.3, BUN 28 H, Creatinine 1.20 H, Estimated Creat Clear 79, Estimated GFR 47 L, Est GFR ( Amer) 56 L, Glucose 154 H, Calcium 8.4, Total Bilirubin 3.3 H, AST 88 H, ALT 31, Alkaline Phosphatase 154 H, Total Protein 6.9, Albumin 3.2 L, Globulin 3.7 H, Albumin/Globulin Ratio 0.9 L 06/04/25 18:54: Fluid Source Paracentesis fluid, Fluid Appearance Cloudy, Fluid RBC (Auto) 2, Fld Tot Nucleated Cell 107 06/04/25 16:20 06/04/25 16:20 Orders (Tests/Meds): ED MEDICATIONS Discontinued Medications Generic Name Dose Route Start Last Admin Trade Name Freq PRN Reason Stop Dose Admin Potassium Chloride 40 meq 06/04/25 20:46 Potassium Chloride 20meq Tab PO 06/04/25 20:47 ONCE ONE ORDERS Category Date Time Status POCUS Point of Care (ER Only) Stat Exams 06/04/25 15:56 Completed Body Fluid: Cell Count w/ Diff Stat Lab 06/04/25 18:54 Results CBC w/Auto Diff [Complete Blood Count Auto Diff] Stat Lab 06/04/25 16:20 Completed CMP [Comprehensive Metabolic Panel] Stat Lab 06/04/25 16:20 Completed PT INR [Prothrombin Time INR] Stat Lab 06/04/25 16:20 Completed UA [Urinalysis and Microscopic] Stat Lab 06/04/25 16:04 Completed Body Fluid Cult & Gram Stain Stat Micro 06/04/25 18:54 Received Medical Decision Narrative: This is a 55-year-old female patient who is presenting to the emergency department today requesting a therapeutic paracentesis in the setting of her insurance failing. She is currently in the process of applying for Medicare and does not know when she will be able to obtain this insurance plan. Comorbidities include alpha-1 antitrypsin deficiency that has resulted in her liver disease. She is currently in the process of pursuing liver transplant to the [facility]. On initial evaluation of the patient they were resting comfortably in no acute distress and nontoxic in appearance. They are hemodynamically stable, saturating well room air, and are neurologically intact. On physical exam the patient does have a protuberant abdomen that is tense with ascites. She has no tenderness to palpation. Heart and lungs are clear to auscultation bilaterally. She is a GCS of 15 and has no confusion. She has pitting edema in her lower extremities. Differential diagnosis includes accumulation of ascites, spontaneous bacterial peritonitis, coagulopathy, decompensated liver failure, among others. Workup was initiated with hematologic labs. Labs were personally interpreted by me. There is no significant change from prior. No acute kidney injury. She is hypokalemic with a potassium of 3.3. We have replaced this with 40 mEq of oral potassium. Anemia is stable from prior. PT/INR is 13.7/1.26. Based off laboratory assessment I do feel that it is safer to proceed with paracentesis. I did use ultrasound guidance to identify a pocket in the patient's abdomen. Proceeded with paracentesis. We drained 2.5 L. We did send this for fluid studies. Total nucleated cell count is 107. Given that this is less than 250 I do not feel that she is experiencing spontaneous bacterial peritonitis at this time. On repeat assessment she does feel improved. She does not have any abdominal tenderness. Her dressing is not saturated. At this time all questions been answered and all parties are agreeable with the decision for discharge home. We have discussed continued attempts to obtain insurance for approval of regularly scheduled outpatient paracentesis. Procedures Paracentesis Time Out Performed: Yes Local Anesthetic: lidocaine 1% Amount of anesthesia used (mL): 10 Fluid: other (Straw-colored) and sent to lab for analysis Post Procedure Exam: awake, alert, normal BP, normal HR and normal SpO2 Patient Tolerated Procedure: well and no complications Complications: none Critical Care Critical Care Time Critical Care Time: No
[2025-06-04 16:27] LABS: Hematocrit 27.0 % (37.0-47.0); Hemoglobin 8.9 g/dL (12.2-16.2); Immature Granulocytes % 0.4 %; Mean Corpuscular HGB Conc 33.0 g/dL (31.8-35.4); Mean Corpuscular Hemoglobin 26.7 pg (27.0-31.2); Mean Corpuscular Volume 81.1 fl (81-99); Nucleated Red Blood Cells % 0 %; Platelet Count 141 K/mm3 (142-424); Red Blood Count 3.33 M/mm3 (4.20-5.40); Red Cell Distribution Width-SD 55.1 fL; White Blood Count 7.9 K/mm3 (4.8-10.8)
[2025-06-04 16:32] LABS: Albumin Level 3.2 g/dl (3.5-5.0); Chloride 103 mmol/L (98-107); Potassium 3.3 mmoL/L (3.5-5.1); Sodium 135 mmol/L (136-145)
[2025-06-04 16:35] LABS: Alanine Aminotransferase 31 U/L (12-78); Albumin/Globulin Ratio 0.9 (1.1-1.8); Alkaline Phosphatase 154 U/L (38-126); Anion Gap 9.3 mEq/L (5-15); Aspartate Amino Transferase 88 U/L (14-36); Bilirubin,Total 3.3 mg/dl (0.2-1.3); Blood Urea Nitrogen 28 mg/dl (7-17); Calcium 8.4 mg/dl (8.4-10.2); Carbon Dioxide 26 mmol/L (22.0-30.0); Creatinine Clearance Estimated 79 mL/min (50-200); Creatinine,Serum 1.20 mg/dl (0.52-1.04); Estimated Glomerular Filt Rate 47 ml/min (>60); GFR (African American) 56 ML/MIN (>60); Globulin 3.7 g/dL (1.3-3.2); Glucose 154 mg/dl (74-100); Total Protein,Serum 6.9 g/dl (6.3-8.2)
[2025-06-04 16:38] LABS: INR 1.26 (0.9-1.1); Prothrombin Time 13.7 seconds (10.1-12.5)
[2025-06-04 18:01] LABS: Microscopic, Urine URINE MICROSCOPIC (MICROSCOPIC)
[2025-06-04 18:02] LABS: Bilirubin,Urine Negative (Negative); Color,Urine YELLOW (Yellow); Glucose,Urine (UA) Negative (Negative); Ketones,Urine Negative (Negative); Leukocyte Esterase,Urine Negative (Negative); PH,Urine 6.0 (5.0-8.5); Protein,Urine Negative (Negative); Specific Gravity, Urine 1.025 (1.005-1.030); Urobilinogen,Urine 1.0 EU/dl (0.2)
[2025-06-04 18:13] LABS: Calcium Oxalate Crystals,Urine 2+ /lpf
[2025-06-04 18:14] LABS: Bacteria,Urine 1+ /lpf
[2025-06-04 20:19] LABS: Appearance,Body Fld. Cloudy; Source, Body Fld. Paracentesis Fluid
[2025-06-04 20:21] LABS: RBC,Body Fluid 2 cells/uL (< 10 X 10^3)
[2025-06-04 20:23] LABS: TNC,Body Fluid 107 cells/uL (< 1000)
[2025-06-04] MEDS: POTASSIUM CHLORIDE 20MEQ TAB 40 MEQ PO (20:51)
[2025-06-04 21:21] LABS: Volume,Body Fld. 2500 mL
[2025-06-04 22:39] LABS: Mononuclear WBCs,Body Fluid 80 %; Polynuclear WBC,Body Fluid 20 %
[2025-06-07 12:20] LABS: Glucose, Body Fluid 142 mg/dL (.)
== END 2025-06-04 21:15 | disposition home or self-care (01) ==
PROVIDERS: Emergency Provider Student in an Organized Health Care Education/Training Program; PCP Nurse Practitioner Family
DX: R18.8 Other ascites (principal); K74.69 Other cirrhosis of liver; E88.01 Alpha-1-antitrypsin deficiency; R06.02 Shortness of breath
CPT/HCPCS: 49083; 80053; 81001; 82945; 85025; 85610; 87070; 87205; 89051; 99284

== ENCOUNTER 2025-06-18 15:47 | Emergency (ER) | payer SELFPAY ==
[2025-06-18 15:54] VITALS: BP 125/63; PULSE 96; RESP 16; TEMP 36.4; O2SAT 99; BMI 35.9
--- OUTSIDE RECORDS SUMMARY | 2025-06-18 16:05 | XMS_ITS | Clinical Summary ---
Author Organization [facility] Address [address] [place] [address] Care Team Providers Care Pipe Installer Name Role Phone Jessica Man EPIC INTERFACE ANALYST Primary Care Provider [phone] Mary Lim EPIC INTERFACE ANALYST Unavailable [phone] Allergies Active Allergy Reactions Criticality Noted Date Comments Varenicline Hives Medium 12/05/2022 Erythorbic Acid Swelling High 09/17/2018 throat Erythromycin Nausea And Vomiting, Unknown - Patient states they do not know rxn details Low 06/01/2014 Empagliflozin Hives Medium 12/05/2022 Metformin Diarrhea,Other - ple ase document in the comment field Low 12/05/2022 Vomiting Medications cyclobenzaprin e (Flexeril) 10 MG tablet 3 Active diazePAM [...] needed (severe hypoglycemia). 2 each 3 4 025 Active furosemide (Lasix) 40 MG tablet TAKE [...] 2 TABLETS 1 TIME EACH DAY Active Insulin Pen Needle (BD Pen Needle Jazlyn U/F) 32G X 4 MM misc 4x/day as directed 360 each 3 5 Active insulin glargine-yfgn (Semglee) 100 UNIT/ML injection pen Inject subcutaneous 30 units in PM plus titration as advised, max dose 50u/day 45 mL 3 5 Active NovoLOG FLEXPEN 100 UNIT/ML injection pen Inject 12 units before meals plus correction 1:30>150. MDD: 60 units. 55 mL 3 5 Active Continuous Glucose Sensor (FreeStyle Madan 3 Plus Sensor) miscIndication s:Type 2 diabetes mellitus with hyperglycemia, without long-term current use of insulin ([facility]) 1 sensor every 15 days. 2 each 5 5 Active Continuous Glucose Employment Security Officer (FreeStyle Madan 3 [place]) deviceIndicati ons:Type 2 diabetes mellitus with hyperglycemia, without long-term current use of insulin ([facility]) 1 Device 6 times a day. Use to check blood glucose regularly 1 each 5 Active Continuous Glucose Sensor (Dexcom G7 Sensor) misc 1 each every 10 (ten) days. 9 each 3 4 025 Discontin ued(Formu owen change) insulin glargine (Lantus SoloStar, Basaglar) 100 UNIT/ML injection pen Inject subcutaneous 30 units in PM plus titration as advised, max dose 50u/day 30 mL 3 5 025 Discontin ued(Formu owen change) insulin lispro (Admelog, HumaLOG) 100 UNIT/ML injection pen Instructed to inject 12 units before meals plus correction 1:30>150. MDD: 60 units. 55 mL 3 5 025 Discontin ued(Formu owen change) Active Problems Problem Noted Date Diagnosed Date [...] Encounters Date Type Department Care Team Description 06/16/2025 Telephone [facility] [address], [address] [place] [address] Zzzneurology, Physician, 06/09/2025 Telephone [facility] Endocrinology [address] [place] [address] Silvia Lewis APRN Prior-authorization/in surance Verification 06/04/2025 Refill [facility] Endocrinology [address] [place] [address] Jessica Aranda 06/04/2025 Telephone [facility] Endocrinology [address] [place] [address] Silvia Lewis APRN 06/02/2025 Telephone [facility] Endocrinology [address] [place] [address] Silvia Lewis APRN Prior-authorization/in surance Verification 06/01/2025 Telephone [facility] [address] [address] Edda Méndez 05/26/2025 Telephone [facility] [address] [address] Edda Méndez Appointment (Scheduling) 05/25/2025 Orders Only External Location [address] [place] [address] Provider, External 05/24/2025 Telephone [facility] [address] [address] Edda Méndez 05/17/2025 Telephone [facility] [address] [address] Edda Méndez Referral - Liver Txp 05/11/2025 Telephone [facility] [address] [address] Edda Méndez Referral - Liver Txp 04/06/2025 1:40 PM EDT Office Visit [facility] Endocrinology [address] [place] [address] Silvia Lewis, NGUYỄN Type 2 diabetes mellitus with hyperglycemia, without long-term current use of insulin ([facility]) (Primary Dx); Hyperlipidemia, unspecified hyperlipidemia [...] Description 06/25/2025 7:30 AM EDT Clinical Support [facility] [address] [place] [address] 06/25/2025 9:00 AM EDT Office Visit [facility] [address] [place] [address] Orlando Fierro MD [address] [place] [address] 06/25/2025 9:40 AM EDT Office Visit [facility] [address] [place] [address] Surgeon, Transplant Liver 07/02/2025 12:20 PM EDT Office Visit [facility] Medicine Specialties [address] 2[address] [place] [address] Kira Ramirez, EPIC INTERFACE ANALYST [address] [place] [address] 07/22/2025 3:40 PM EDT Office Visit [facility] Endocrinology [address] [place] [address] Silvia Lewis S, EPIC INTERFACE ANALYST [address] [place] [address] Health Maintenance Due Date Last Done Comments [facility]-/Child/Adol SDOH Screenings 1970 Diabetes: Dental Exam 02/16/1980 [...] 02/16/2020 [facility]-Zoster Vaccines (1 of 2) 02/16/2020 XPT-VQCLQ-22 Vaccine (2 - season) 2025 09/23/2023 [facility]-Influenza Vaccine (#1) 06/14/202507/14, 09/03/2023, 09/19/2022, [...] Procedure Name Priority Date/Time Associated Diagnosis Comments XR OUTSIDE IMAGES 05/25/2025 3:5 7 PM EDT POCT GLYCOSYLATED HEMOGLOBIN (HGB A1C) Routine 04/06/2025 2:04 PM EDT Type 2 diabetes mellitus with hyperglycemia, without long-term current use of insulin (CMS/HCC) HEPATITIS C ANTIBODY W/REFLEX TO HCV QUANT PCR Routine 06/01/2014 4:27 PM EDT HIV 1/2 ANTIBODY/ANTIGEN SCREEN WITH REFLEX TO HIV I/II DIFFERENTIATION Routine 06/01/2014 4:27 PM EDT from Last 3 Months or Most Recently Relevant to Health Maintenance Results * XR OUTSIDE IMAGES (05/25/2025 3:57 PM EDT) Anatomical Region Laterality Modality Radiographic Gauri ging 05/25/2025 3:57 PM EDT us External Provider IMG XR PROCEDURES Final Result * POCT glycosylated hemoglobin (Hb A1C) (04/06/2025 2:04 PM EDT) Pathologist [facility] POCT Hemoglobin A1C 5.1 <5.7% Non-Diabe tic % [facility] Kit Lot Number [id number] [facility] Kit Expiration Date 01/11/2027 [facility] Blood Venous blood specimen / Unknown 04/06/2025 2:04 PM EDT Silvia Lewis EPIC INTERFACE ANALYST POINT OF CARE TEST ENTER/ED IT ORDERABLES Final Result [facility] [address] [place] [address] * HIV 1 & 2 Antibody/Antigen Screen (06/01/2014 4:27 PM EDT) [facility] HIV 1 Result NONREACTIVE Screening for HIV 1 and 2 antibodies is NONREACTIVE. No confirmatory testing is required. [facility]QUEST 06/01/2014 4:27 PM EDT 06/01/2014 5:40 PM EDT Historical Provider LAB BLOOD ORDERABLES Final R esult SUNQUEST * Hepatitis C Antibody (06/01/2014 4:27 PM EDT) [facility] Hepatitis C Antibody NEGATIVE Reference Range: Negative SUNQUEST 06/01/2014 4:27 PM EDT 06/01/2014 5:40 PM EDT Historical Provider LAB BLOOD ORDERABLES Final R esult SUNQUEST from Last 3 Months or Most Recently Relevant to Health Maintenance [place] [address] [place] [address] [place] [address] [facility] Care Teams Pipe Installer Relationship Specialty Start Date End Date Jessica Man APRN [address] [place] [address] PCP - General 02/24/21 Mary Lim APRN [address] [place], [place] [id number] Referring Physician Gastroenterology 05/11/25
--- OUTSIDE RECORDS SUMMARY | 2025-06-18 16:05 | XMS_ITS | Encounter Summary ---
Author Organization Healthcare Address [address] [place] [address] Care Team Providers Care Wheel Alignment Technician Name Role Phone Jessica Man IT APPLICATIONS DEVELOPER Primary Care Provider [phone] Mary Lim IT APPLICATIONS DEVELOPER Unavailable [phone] Reason for Visit * Reason Onset Date Comments Med Refill 06/04/2025 Encounter Details Date Type Department Care Team (Late st Contact Info) Description 06/04/2025 Refill [facility] Endocrinology [address] [place] [address] Jessica Aranda Social History Tobacco Use Types Packs/Day Years [...] Description 06/25/2025 7:30 AM EDT Clinical Support [facility] [address] [place] [address] 06/25/2025 9:00 AM EDT Office Visit [facility] [address] [place] [address] Orlando Fierro MD [address] [place] [address] 06/25/2025 9:40 AM EDT Office Visit [facility] [address] [place] [address] Surgeon, Transplant Liver 07/02/2025 12:20 PM EDT Office Visit [facility] Medicine Specialties [address], [address] [place] [address] Kira Ramirez, IT APPLICATIONS DEVELOPER [address] [facility] [address] [place] [address] 07/22/2025 3:40 PM EDT Office Visit [facility] Endocrinology [address] [place] [address] Silvia Lewis S, IT APPLICATIONS DEVELOPER [address] [facility] [address] [place] [address] documented as of this encounter [...] documented as of this encounter Care Teams Wheel Alignment Technician Relationship Specialty Start Date End Date Jessica Man, IT APPLICATIONS DEVELOPER [address] [place] [address] PCP - General 02/24/21 Mary Lim APRN [address] [place] [address] Referring Physician Gastroenterology 05/11/25 documented as of this encounter
--- OUTSIDE RECORDS SUMMARY | 2025-06-18 16:05 | XMS_ITS | Clinical Summary ---
[facility] Organization [facility] Address [address] [place] [address] Care Team Providers Care Out Of School Hours Care Worker Name Role Phone Jessica Man APRN Primary Care Provider [phone] Allergies Active Allergy Reactions Criticality Noted Date [...] for 1 day. 4 Active Continuous Glucose Rotary Slicing Machine Operator (Dexcom G7 Rotary Slicing Machine Operator) device USE TO MONITOR BLOOD SUGAR DIRECTED 4 Active Continuous Glucose Sensor (Dexcom G7 Sensor) [facility] USE TO MONITOR BLOOD SUGAR. REPLACE EVERY 10 DAYS 4 Active Continuous Glucose Transmitter (Dexcom G6 Transmitter) [facility] [place] USU TO MEASURE BLOOD SUGAR DIRECTED. REPLACE [...] Needle Jazlyn U/F 32G X 4 MM [facility] [place] [place] USE TO INJECT INSULIN 4 TIMES EACH [...] false negative. Will order in lab PSG. [place] 17. Preop cardiovascular exam 03/17/2024 Encounter for [...] 2) 02/16/2020 LIPID PANEL 05/09/2022 05/09/2021, 05/09/2021 DIABETIC FOOT EXAM 12/09/2024 12/09/2023 COVID-19 Vaccine (2 - 2024-2 6 season) 2025 09/23/2023 INFLUENZA VACCINE 07/14/2025 09/03/2023, , 07/13/2020, Additional history exists HEMOGLOBIN A1C 10/06/2025 04/06/2025, 03/1 , 09/21/2024, Additional history exists COLONOSCOPY 04/19/2029 04/19/2019 COLORECTAL CANCER SCREENING 04/19/2029 HEPATITIS C SCREENING Completed 06/01/2014 Insurance [employer] Care Teams Out Of School Hours Care Worker Relationship Specialty Start Date End Date Jessica Man APRN [address] [place] [address] PCP - General Nurse Practitioner 03/17/24
--- OUTSIDE RECORDS SUMMARY | 2025-06-18 16:05 | XMS_ITS | Encounter Summary ---
Author Organization Healthcare Address [address] [place] [address] Care Team Providers Care Tow Truck Dispatcher Name Role Phone Jessica Man HEAD OF HOUSEKEEPING Primary Care Provider [phone] Mary Lim HEAD OF HOUSEKEEPING Unavailable [phone] Encounter Details Date Type Department Care Team (Late st Contact Info) Description 06/16/2025 Telephone [facility] [address] 1st [place] [address] Zzzneurology, Physician, [address] [place] [address] Social History Tobacco Use Types Packs/Day Years [...] Description 06/25/2025 7:30 AM EDT Clinical Support [facility] [address] [place] [address] 06/25/2025 9:00 AM EDT Office Visit [facility] [address] [place] [address] Orlando Fierro MD [address] [place] [address] 06/25/2025 9:40 AM EDT Office Visit [facility] Trans[facility] [place] [address] [place] [address] Surgeon, Transplant Liver 07/02/2025 12:20 PM EDT Office Visit [facility] Medicine Specialties [address] [place] [address] Kira Ramirez, HEAD OF HOUSEKEEPING [address] [place] [address] 07/22/2025 3:40 PM EDT Office Visit [facility] Endocrinology [address] [place] [address] Silvia Lewis S, HEAD OF HOUSEKEEPING [address] [place] [address] documented as of this encounter [...] documented as of this encounter Care Teams Tow Truck Dispatcher Relationship Specialty Start Date End Date Jessica Man, HEAD OF HOUSEKEEPING [address] [place] [address] PCP - General 02/24/21 Mary Lim APRN [address] [place] [address] Referring Physician Gastroenterology 05/11/25 documented as of this encounter
--- OUTSIDE RECORDS SUMMARY | 2025-06-18 16:05 | XMS_ITS ---
Author Organization [facility] Address [address] [place] [address] Care Team Providers Care Media Strategist Name Role Phone Jessica Man APRN Primary Care Provider [phone] Mary Lim APRN Unavailable Transplant Episode Liver Candidate [facility] ([place], [place]) - JAMIE Referred on 05/11/2025 Marked as Active on 05/11/2025 Liver CoordinatorRealice Méndez Fax: N/A Email: N/A Scores Score Value Updated Expires Exceptions/Gisela sons CPRA Not available MELD (Calc) 15 03/05/2025 Care Team Name Role Phone Fax Email Edda Méndez Liver Coordinator [phone] N/A N/A Mary Lim APRN Referring Physician [phone] N/A Jessica Man APRN Primary Care Provider [phone] N/A Elaine Banerjee Telephone Appointment Clerk [phone] N/A N/A Donnie Jordan MD Surgeon [phone] N/A Events Pre-Transplant Referred: 05/11/2025 Appointments (05/18/2025 - 07/18/2025) When With Visit Type Description 06/25/2025 Transplant - Surgeon, T Initial Clinic Evaluation 06/25/2025 Transplant LAB 06/25/2025 Transplant - Marianna Fierro Initial Clinic Evaluation
--- OUTSIDE RECORDS SUMMARY | 2025-06-18 16:05 | XMS_ITS | Encounter Summary ---
Author Organization Healthcare Address [address] [place] [address] Care Team Providers Care Sas Etl Developer Name Role Phone Jessica Man SAW GRINDER Primary Care Provider Mary Lim SAW GRINDER Unavailable [phone] Reason for Visit * Reason Onset Date Comments Prior-authorization/insurance Verification 06/09 Encounter Details Date Type Department Care Team (Late st Contact Info) Description 06/09/2025 Telephone [facility] Endocrinology [address] [place] [address] Silvia Adrian, SAW GRINDER [address] [facility] [address] [place] [address] Prior-authorization/in surance Verification Social History [...] as of this encounter Miscellaneous Notes * Addendum Note - Mckenzie Martin CDE, RD - 06/10/2025 10:50 AM EDTAddended by: MCKENZIE MARTIN on: 06/10/2025 10:50 AM Modules accepted: Orders * Telephone Encounter - Mckenzie Martin CDE, RD - 06/10/2025 10:42 AM EDT Attempted to reach patient again to discuss formulary alternative FSL3+ sensor. No answer left v/m informing patient of this and reviewed w/ her that it is also approved on back of the arm and wear is for 15 days instead of 10. If has any questions advised to call us back. Also sent a [employer] message regarding this. * Telephone Encounter - Kelly Jaimes RN - 06/09/2025 4:09 PM EDT Called pt regarding PA denial of CGM due to insurance preference. No answer. Left detailed message that the PA for her Dexcom was denied due to insurance preference of FSL. Provided callback number to discuss. * Telephone Encounter - Ceci Montaño - 06/09/2025 3:04 PM EDT Images from the original note were not included. Prior authorization requested for Dexcom G7 sensor. Ordered by Silvia Adrian. documented in this encounter Plan of Treatment Upcoming Encounters Date Type Department Care Team (Late st Contact Info) Description 06/25/2025 7:30 AM EDT Clinical Support [facility] [address] [facility] [address] [place] [address] 06/25/2025 9:00 AM EDT Office Visit [facility] [address] [place] [address] Orlando Fierro MD [address] [place] [address] 06/25/2025 9:40 AM EDT Office Visit [facility] [address] [place] [address] Surgeon, Transplant Liver 07/02/2025 12:20 PM EDT Office Visit [facility] Medicine Specialties [address] [place] [address] Kira Ramirez, SAW GRINDER [address] [facility] [address] [place] [address] 07/22/2025 3:40 PM EDT Office Visit [facility] Endocrinology [address] [place] [address] Silvia Adrian S, SAW GRINDER [address] [facility] [address] [place] [address] documented as of this encounter Visit Diagnoses Diagnosis Type 2 diabetes mellitus with hyperglycemia, without long-term current use of insulin ([facility])- Primary documented in this encounter Additional Health Concerns Assessment Noted Time PHQ-9 Depression Total Score: 7 12/22/19 25 12:39 PM EDT A fall risk assessment has been complete d for the patient 03/13/2023 9:53 AM EDT A Body Mass Index follow-up plan has been documented for the patient 04/06/2025 2:27 PM EDT documented as of this encounter Care Teams Sas Etl Developer Relationship Specialty Start Date End Date Jessica Man, SAW GRINDER [address] [place] [address] PCP - General 02/24/21 Mary Lim APRN [address] [place] [address] Referring Physician Gastroenterology 05/11/25 documented as of this encounter
--- OUTSIDE RECORDS SUMMARY | 2025-06-18 16:06 | XMS_ITS | Encounter Summary ---
Author Organization [facility] Address [address] [place] [address] Care Team Providers Care Front End Specialist Name Role Phone Jessica Man MANUFACTURERS REPRESENTATIVE Primary Care Provider [phone] Mary iLm MANUFACTURERS REPRESENTATIVE Unavailable [phone] Encounter Details Date Type Department Care Team (Late st Contact Info) Description 06/01/2025 Telephone [facility] Trans[facility] [address] [facility] [address] [place] [address] Edda Méndez [place] [id number] Social History Tobacco Use Types Packs/Day Years [...] [facility] [address] [facility] [address] [place] [address] 06/25/2025 9:00 AM EDT Office Visit [facility] Transplant [place] [address] [facility] [address] [place] [address] Orlando Fierro MD [address] [facility] [address] [place] [address] 06/25/2025 9:40 AM EDT Office Visit [facility] [address] [facility] [address] [place] [address] Surgeon, Transplant Liver 07/02/2025 12:20 PM EDT Office Visit [facility] Medicine Specialties [address] 2[address] [place] [address] Kira Ramirez, MANUFACTURERS REPRESENTATIVE [address] [facility] [address] [place] [address] 07/22/2025 3:40 PM EDT Office Visit [facility] Endocrinology [address] [place] [address] Silvia Lewis S, MANUFACTURERS REPRESENTATIVE [address] [place] [address] documented as of this encounter Visit Diagnoses [...] documented as of this encounter Care Teams Front End Specialist Relationship Specialty Start Date End Date Jessica Man APRN [address] [place] [address] PCP - General 02/24/21 Mary Lim APRN [address] [place] [address] Referring Physician Gastroenterology 05/11/25 documented as of this encounter
--- OUTSIDE RECORDS SUMMARY | 2025-06-18 16:06 | XMS_ITS | Encounter Summary ---
Author Organization Healthcare Address [address] [place] [address] Care Team Providers Care Peer Tutor Name Role Phone Jessica Man GLASSWARE DEFECT REPAIRER Primary Care Provider [phone] Mary Lim GLASSWARE DEFECT REPAIRER Unavailable [phone] Reason for Referral * Consultation (Routine) - Closed Specialty Diagnoses / Procedures Referred By Contac t Referred To Contact Endocrinology Diagnoses Type 2 diabetes mellitus with diabetic neuropathy, unspecified whether terminologist insulin use (CMS/HCC) Jessica Man, GLASSWARE DEFECT REPAIRER [address] [place] [address] Phone: tel: fax: [facility] Endocrinology [address] [place] [address] Phone: tel: fax: Referral ID Status Reason Start Date Expiration Date V isits Requested Visits Authorized [id number] Closed Specialty Services Required 10/10/2022 04/10/2024 1 1 Encounter Details Date Type Department Care Team (Late st Contact Info) Description 10/10/2022 Community [facility] [address] [place] [address] Jessica Man, GLASSWARE DEFECT REPAIRER [address] [place], [place] [id number] Type 2 diabetes mellitus with diabetic neuropathy, unspecified whether terminologist insulin use (CMS/HCC) (Primary Dx) Social History [...] [facility]plant [place] [address] [place] [address] 06/25/2025 9:00 AM EDT Office Visit [facility] [place] [address] [place] [address] Orlando Fierro MD [address] [facility] [address] [place] [address] 06/25/2025 9:40 AM EDT Office Visit [facility] [place] [address] [place] [address] Surgeon, Transplant Liver 07/02/2025 12:20 PM EDT Office Visit [facility] Medicine Specialties [address] [place] [address] Kira Ramirez D, GLASSWARE DEFECT REPAIRER [address] [facility] [address] [place] [address] 07/22/2025 3:40 PM EDT Office Visit [facility] Endocrinology [address] [place] [address] Silvia Lewis S, GLASSWARE DEFECT REPAIRER [address] [place] [address] Scheduled Referrals Name Type Priority Associated Diagnoses Order Schedule Ambulatory referral to Endocrinology Outpatient Referral Routine Type 2 diabetes mellitus with diabetic neuropathy, unspecified whether intermediate insulin use (CMS/HCC) Expected: 10/10/2022 (Approximate), Expires: 04/10/2024 documented as of this encounter Visit Diagnoses Diagnosis Type 2 diabetes mellitus with diabetic neuropathy, unspecified whether terminologist insulin use (CMS/HCC)- Primary documented in this encounter Care Teams Peer Tutor Relationship Specialty Start Date End Date Jessica Man, GLASSWARE DEFECT REPAIRER [address] [place] [address] PCP - General 02/24/21 Mary Lim, GLASSWARE DEFECT REPAIRER [address] [place] [address] Referring Physician Gastroenterology 05/11/25 documented as of this encounter
--- OUTSIDE RECORDS SUMMARY | 2025-06-18 16:06 | XMS_ITS | Encounter Summary ---
Author Organization Healthcare Address [address] [place] [address] Care Team Providers Care Director Vaccine Name Role Phone Jessica Man INBOUND INGREDIENT LOGISTICS SPECIALIST Primary Care Provider [phone] Mary Lim INBOUND INGREDIENT LOGISTICS SPECIALIST Unavailable [phone] Encounter Details Date Type Department Care Team (Late st Contact Info) Description 06/04/2025 Telephone [facility] Endocrinology [address] [place] [address] Silvia Lewis, INBOUND INGREDIENT LOGISTICS SPECIALIST [address] [facility] [address] [place] [address] Social History Tobacco Use Types [...] encounter Miscellaneous Notes * Telephone Encounter - Jessica Aranda - 06/04/2025 3:48 PM EDT Sent request for Semglee and Novolog to pt's preferred pharmacy. documented in this encounter Plan of Treatment Upcoming Encounters Date Type Department Care Team (Late st Contact Info) Description 06/25/2025 7:30 AM EDT Clinical Support [facility] Transplant Center [address] [facility] [address] [place] [address] 06/25/2025 9:00 AM EDT Office Visit [facility]plant [place] [address] [facility] [address] [place] [address] Orlando Fierro MD [address] [facility] [address] [place] [address] 06/25/2025 9:40 AM EDT Office Visit [facility]plant [place] [address] [facility] [address] [place] [address] Surgeon, Transplant Liver 07/02/2025 12:20 PM EDT Office Visit [facility] Medicine Specialties [address], [address] [place] [address] Kira Ramirez D, INBOUND INGREDIENT LOGISTICS SPECIALIST [address] [facility] [address] [place] [address] 07/22/2025 3:40 PM EDT Office Visit [facility] Endocrinology [address] [place] [address] Silvia Lewis S, INBOUND INGREDIENT LOGISTICS SPECIALIST [address] [place] [address] documented as of this encounter [...] documented as of this encounter Care Teams Director Vaccine Relationship Specialty Start Date End Date Jessica Man APRN [address] [place] [address] PCP - General 02/24/21 Mary Lim APRN [address] [place] [address] Referring Physician Gastroenterology 05/11/25 documented as of this encounter
--- OUTSIDE RECORDS SUMMARY | 2025-06-18 16:06 | XMS_ITS | Encounter Summary ---
Author Organization Healthcare Address [address] [place] [address] Care Team Providers Care Motorcycle Repair Shop Supervisor Name Role Phone Jessica Man TRACK MECHANIC Primary Care Provider [phone] Mary Lim TRACK MECHANIC Unavailable [phone] Encounter Details Date Type Department Care Team (Late st Contact Info) Description 05/25/2025 Orders Only External Location [address] [place] [address] Provider, External Social History Tobacco Use Types Packs/Day Years [...] Description 06/25/2025 7:30 AM EDT Clinical Support [facility] Transplant Center [address] [place] [address] 06/25/2025 9:00 AM EDT Office Visit [facility] Transplant Center [address] [place] [address] Orlando Fierro MD [address] [place] [address] 06/25/2025 9:40 AM EDT Office Visit [facility] Transplant Center [address] [place] [address] Surgeon, Transplant Liver 07/02/2025 12:20 PM EDT Office Visit [facility] Medicine Specialties [address] [place] [address] Kira Ramirez, TRACK MECHANIC [address] [place] [address] 07/22/2025 3:40 PM EDT Office Visit [facility] Endocrinology [address] [place] [address] Silvia Lewis S, TRACK MECHANIC [address] [facility] [address] [place] [address] documented as of this encounter Procedures Procedure Name Priority Date/Time Associated Diagnosis Comments XR OUTSIDE IMAGES 05/25/2025 3:57 PM EDT documented in this encounter Results * XR OUTSIDE IMAGES (05/25/2025 3:57 PM EDT) Anatomical Region Laterality Modality Radiographic Gauri ging 05/25/2025 3:57 PM EDT External Provider IMG XR PROCEDURES Final Result documented in this encounter Visit Diagnoses Not on filedocumented [...] documented as of this encounter Care Teams Motorcycle Repair Shop Supervisor Relationship Specialty Start Date End Date Jessica Man APRN [address] [place] [address] PCP - General 02/24/21 Mary Lim APRN [address] [place] [address] Referring Physician Gastroenterology 05/11/25 documented as of this encounter
--- OUTSIDE RECORDS SUMMARY | 2025-06-18 16:06 | XMS_ITS | Encounter Summary ---
Author Organization [facility] Address [address] [place] [address] Care Team Providers Care Weapons Officer Name Role Phone Jessica Man SALES ROUTE DRIVER Primary Care Provider [phone] Mary Lim SALES ROUTE DRIVER Unavailable [phone] Reason for Referral * Consultation (Routine) - Authorized Specialty Diagnoses / Procedures Referred By Contac t Referred To Contact Transplant Diagnoses End-stage liver disease (CMS/HCC) Donnie Jordan MD [address] [address] Phone: tel: fax: [facility] Transplant [place] [address] [address] Phone: tel: fax: Referral ID Status Reason Start Date Expiration Date Visits Requested Visits Authorized [id number] Authorized Specialty Services Required 05/26/2025 11/25/2026 1 1 Reason for Visit * Reason Comments Appointment Scheduling Encounter Details Date Type Department Care Team (Late st Contact Info) Description 05/26/2025 Telephone [facility] Transplant Center [address] [address] Edda Méndez [place] [phone] Appointment (Scheduling) Social History Tobacco Use Types Packs/Day Years Used Date Smoking Tobacco: Former Cigarettes 0.5 30 1 99 2022 Smokeless Tobacco: Never Comments:Smoking for 30+ [...] to clinic. New Patient materials attached to [employer]. Notified referring - left voicemail message for Shilpi Henry. documented in this encounter Plan of Treatment Upcoming Encounters Date Type Department Care Team (Late st Contact Info) Description 06/25/2025 7:30 AM EDT Clinical Support [facility] Transplant Center [address] [place] [address] [place] [address] 06/25/2025 9:00 AM EDT Office Visit [facility] Transplant [place] [address] [place] [address] Orlando Fierro MD [address] [place] [place] [address] 06/25/2025 9:40 AM EDT Office Visit [facility] Transplant Center [address] [place] [address] Surgeon, Transplant Liver 07/02/2025 12:20 PM EDT Office Visit [facility] Medicine Specialties [address] 2[address] [place] [address] Kira Ramirez, SALES ROUTE DRIVER [address] [place] [address] 07/22/2025 3:40 PM EDT Office Visit [facility] Endocrinology [address] [place] [address] Silvia Lewis S, SALES ROUTE DRIVER [address] [place] [address] Scheduled Orders Name Type Priority [...] documented as of this encounter Care Teams Weapons Officer Relationship Specialty Start Date End Date Jessica Man APRN [address] [place] [address] PCP - General 02/24/21 Mary Lim APRN [address] [place] [address] Referring Physician Gastroenterology 05/11/25 documented as of this encounter
--- OUTSIDE RECORDS SUMMARY | 2025-06-18 16:06 | XMS_ITS | Encounter Summary ---
Author Organization [facility] Address [address] [place] [address] Care Team Providers Care Sifter Operator Name Role Phone Jessica Man SYSTEMS TESTING LABORATORY TECHNICIAN Primary Care Provider [phone] Mary Lim SYSTEMS TESTING LABORATORY TECHNICIAN Unavailable [phone] Reason for Visit * Reason Comments Referral - Liver Txp Encounter Details Date Type Department Care Team (Late st Contact Info) Description 05/17/2025 Telephone [facility] Transplant Center [address] [place] [address] Edda Méndez [place] [phone] Referral - Liver Txp Social History Tobacco [...] She has an appointment this [facility] with [facility] to try to resolve this problem. [...] Description 06/25/2025 7:30 AM EDT Clinical Support [facility] Transplant [place] [address] [place] [address] 06/25/2025 9:00 AM EDT Office Visit [facility] Transplant [place] [address] [place] [address] Orlando Fierro MD [address] [place] [address] 06/25/2025 9:40 AM EDT Office Visit [facility] Transplant [place] [address] [place] [address] Surgeon, Transplant Liver 07/02/2025 12:20 PM EDT Office Visit [facility] Medicine Specialties [address] 2nd [place] [address] Kira Ramirez, SYSTEMS TESTING LABORATORY TECHNICIAN [address] [place] [address] 07/22/2025 3:40 PM EDT Office Visit [facility] Endocrinology [address] [place] [address] Silvia Lewis, SYSTEMS TESTING LABORATORY TECHNICIAN [address] [place] [address] documented as of this encounter Visit Diagnoses [...] documented as of this encounter Care Teams Sifter Operator Relationship Specialty Start Date End Date eJssica Man APRN [address] [place] [address] PCP - General 02/24/21 Mary Lim APRN [address] [place] [address] Referring Physician Gastroenterology 05/11/25 documented as of this encounter
--- OUTSIDE RECORDS SUMMARY | 2025-06-18 16:06 | XMS_ITS | Encounter Summary ---
Author Organization [facility] Address [address] [place] [address] Care Team Providers Care Parts Interpreter Name Role Phone Jessica Man ELECTRICAL CONTROLS DESIGNER Primary Care Provider [phone] Mary Lim ELECTRICAL CONTROLS DESIGNER Unavailable [phone] Encounter Details Date Type Department Care Team (Late st Contact Info) Description 05/24/2025 Telephone [facility] Transplant Center [address] [facility] [address] [place] [address] Edda Méndez [place] [phone] Social History Tobacco Use Types Packs/Day Years [...] encounter Miscellaneous Notes * Telephone Encounter - dEda Méndez - 05/24/2025 10:13 AM EDT Called Ms Theoodre to follow up regarding her insurance - no answer, left voicemail message with contact information and request for return call. documented in this encounter Plan of Treatment Upcoming Encounters Date Type Department Care Team (Late st Contact Info) Description 06/25/2025 7:30 AM EDT Clinical Support [facility] Transplant Center [address] [place] [address] 06/25/2025 9:00 AM EDT Office Visit [facility] Transplant [place] [address] [place] [address] Orlando Fierro MD [address] [place] [address] 06/25/2025 9:40 AM EDT Office Visit [facility] Transplant [place] [address] [facility] [address] [place] [address] Surgeon, Transplant Liver 07/02/2025 12:20 PM EDT Office Visit [facility] Medicine Specialties [address] [place] [address] Kira Ramirez D, ELECTRICAL CONTROLS DESIGNER [address] [facility] [address] [place] [address] 07/22/2025 3:40 PM EDT [facility] [address] [place] [address] Silvia Lewis S, ELECTRICAL CONTROLS DESIGNER [address] [place] [address] documented as of this encounter [...] documented as of this encounter Care Teams Parts Interpreter Relationship Specialty Start Date End Date Jsesica Man APRN [address] [place] [address] PCP - General 02/24/21 Mary Lim APRN [address] [place] [address] Referring Physician Gastroenterology 05/11/25 documented as of this encounter
--- OUTSIDE RECORDS SUMMARY | 2025-06-18 16:06 | XMS_ITS | Encounter Summary ---
Author Organization Healthcare Address [address] [place] [address] Care Team Providers Care Recycling Specialist Name Role Phone Jessica Man TALENT ACQUISITION CONSULTANT Primary Care Provider Mary Lim TALENT ACQUISITION CONSULTANT Unavailable [phone] Encounter Details Date Type Department Care Team (Late st Contact Info) Description 02/12/2025 Orders Only External Location [address] [place] [address] Provider, External Social History Tobacco Use Types [...] Description 06/25/2025 7:30 AM EDT Clinical Support [facility] Transplant Center [address] [place] [address] 06/25/2025 9:00 AM EDT Office Visit [facility] Transplant Center [address] [place] [address] Orlando Fierro MD [address] [place] [address] 06/25/2025 9:40 AM EDT Office Visit [facility] Transplant Center [address] [place] [address] Surgeon, Transplant Liver 07/02/2025 12:20 PM EDT Office Visit [facility] Medicine Specialties [address] [place] [address] Kira Ramirez, TALENT ACQUISITION CONSULTANT [address] [place] [address] 07/22/2025 3:40 PM EDT Office Visit [facility] Endocrinology [address] [place] [address] Silvia Lewis S, TALENT ACQUISITION CONSULTANT [address] [facility] [address] [place] [address] documented as of this encounter Procedures Procedure Name Priority Date/Time Associated Diagnosis Comments CT OUTSIDE IMAGES 02/12/2025 12:31 PM EDT documented in this encounter Results * CT OUTSIDE IMAGES (02/12/2025 12:31 PM EDT) Anatomical Region Laterality Modality Computed Tomogra phy 02/12/2025 12:3 1 PM EDT us External Provider IMG CT PROCEDURES Final Result documented in this encounter Visit Diagnoses Not on filedocumented in this encounter Additional Health Concerns Assessment Noted Time PHQ-9 Depression Total Score: 7 12/22/19 25 12:39 PM EDT A fall risk assessment has been complete d for the patient 03/13/2023 9:53 AM EDT A Body Mass Index follow-up plan has been documented for the patient 12/21/2024 1:16 PM EDT documented as of this encounter Care Teams Recycling Specialist Relationship Specialty Start Date End Date Jessica Man APRN [address] [place] [address] PCP - General 02/24/21 Mary Lim APRN [address] [place] [address] Referring Physician Gastroenterology 05/11/25 documented as of this encounter
--- OUTSIDE RECORDS SUMMARY | 2025-06-18 16:06 | XMS_ITS | Encounter Summary ---
Author Organization Healthcare Address [address] [place] [address] Care Team Providers Care Bellman Driver Name Role Phone Jessica Man OPERATIONS AGENT Primary Care Provider Mary Lim OPERATIONS AGENT Unavailable [phone] Reason for Visit * Reason Onset Date Comments Prior-authorization/insurance Verification 06/02 Encounter Details Date Type Department Care Team (Late st Contact Info) Description 06/02/2025 Telephone [facility] Endocrinology [address] [place] [address] Silvia Adrian, OPERATIONS AGENT [address] [facility] [address] [place] [address] Prior-authorization/in surance Verification Social History [...] Description 06/25/2025 7:30 AM EDT Clinical Support [facility] Transplant Center [address] [place] [address] 06/25/2025 9:00 AM EDT Office Visit [facility] Transplant Center [address] [place] [address] Orlando Fierro MD [address] [place] [address] 06/25/2025 9:40 AM EDT Office Visit [facility] Transplant Center [address] [place] [address] Surgeon, Transplant Liver 07/02/2025 12:20 PM EDT Office Visit [facility] Medicine Specialties [address] [place] [address] Kira Ramirez, OPERATIONS AGENT [address] [place] [address] 07/22/2025 3:40 PM EDT [facility] End[facility] [address] [place] [address] Silvia Adrian, OPERATIONS AGENT [address] [place] [address] documented as of this encounter [...] documented as of this encounter Care Teams Bellman Driver Relationship Specialty Start Date End Date Jessica Man APRN [address] [place] [address] PCP - General 02/24/21 Mary Lim APRN [address] [place] [address] Referring Physician Gastroenterology 05/11/25 documented as of this encounter
--- OUTSIDE RECORDS SUMMARY | 2025-06-18 16:06 | XMS_ITS | Encounter Summary ---
Author Organization [facility] Address [address] [place] [address] Care Team Providers Care Inspector Tester Sorter Name Role Phone Jessica Man APRN Primary Care Provider [phone] Mary Lim APRN Unavailable [phone] Reason for Referral * Transplant (Routine) - Pending Review Specialty Diagnoses / Procedures Referred By Contac t Referred To Contact Transplant Diagnoses End-stage liver disease (CMS/HCC) Mary Lim APRN [address] [place] [address] Phone: tel: fax: [facility] Transplant Center [address] [address] Phone: tel: fax: Referral ID Status Reason Start Date Expiration Date Visits Requested Visits Authorized [id number] Pending Review Specialty Services Required 05/11/2025 12/09/2025 999 999 Reason for Visit * Reason Comments Referral - Liver Txp Encounter Details Date Type Department Care Team (Late st Contact Info) Description 05/11/2025 Telephone [facility] Transplant Center [address] [address] Edda Méndez [place] [phone] Referral - Liver Txp Social History Tobacco [...] Description 06/25/2025 7:30 AM EDT Clinical Support [facility] Transplant [place] [address] [place] [address] 06/25/2025 9:00 AM EDT Office Visit [facility] Transplant [place] [address] [place] [address] Orlando Fierro MD [address] [facility] [address] [place] [address] 06/25/2025 9:40 AM EDT Office Visit [facility] Transplant [place] [address] [place] [address] Surgeon, Transplant Liver 07/02/2025 12:20 PM EDT Office Visit [facility] Medicine Specialties [address] 2[address] [place] [address] Ashley, Kira D, TAFE REGISTRAR [address] [place] [address] 07/22/2025 3:40 PM EDT [facility] [address] [place] [address] Silvia Lewis S, TAFE REGISTRAR [address] [place] [address] Scheduled Referrals Name Type Priority [...] Venous blood specimen / Unknown 03/05/2025 Result [facility] Provider LAB BLOOD ORDERABLES Final R esult * Sodium, Plasma (03/05/2025) External Sodium 135 mmol/L Blood Venous blood specimen / Unknown 03/05/2025 Result [facility] Provider LAB BLOOD ORDERABLES Final R esult * Prothrombin Time/INR (03/05/2025) External Prothrombin Time (PT) 13.6 External INR - Internormal Ratio 1.3 Blood Venous blood specimen / Unknown 03/05/2025 Result [facility] Provider LAB BLOOD ORDERABLES Final R esult [...] documented as of this encounter Care Teams Inspector Tester Sorter Relationship Specialty Start Date End Date Jessica Man APRN [address] [place] [address] PCP - General 02/24/21 Mary Lim APRN [address] [place] [address] Referring Physician Gastroenterology 05/11/25 documented as of this encounter
--- NOTE | 2025-06-18 17:04 | HMH.EDGENADL ---
Discharge Plan Disposition Patient Disposition: Home, Self-Care Prescriptions Prescriptions: No Action hydrochlorothiazide 25 mg tablet 25 mg PO DAILY 30 Days Qty: 30 Patient Comments: TAKE 1 TABLET ONCE A DAY duloxetine 60 mg capsule,delayed release(DR/EC) 60 mg PO DAILY 30 Days Qty: 60 Patient Comments: TAKE 1 CAPSULE 2 TIMES A DAY aspirin 81 mg tablet,delayed release (DR/EC) 81 mg PO DAILY 30 Days Qty: 30 Patient Comments: TAKE 1 TABLET ONCE A DAY fenofibrate nanocrystallized 145 mg tablet 145 mg PO DAILY 30 Days Qty: 30 Patient Comments: TAKE 1 TABLET ONCE A DAY omeprazole 40 mg capsule,delayed release(DR/EC) 40 mg PO DAILY Qty: 30 Patient Comments: TAKE 1 CAPSULE ONCE A DAY cyclobenzaprine 10 mg tablet 10 mg PO TID PRN (Reason: pain) Qty: 90 Patient Comments: TAKE 1 TABLET 3 TIMES A DAY Linzess 290 mcg capsule PO DAILY PRN Patient Comments: TAKE 1 CAPSULE 1 TIME EACH DAY (DME) pen needle, diabetic [BD Ultra-Fine Jazlyn Pen Needle] 32 gauge x 5/32 needle See Rx Instructions .ROUTE .MEDSUPPLY Qty: 1200 Patient Comments: USE TO INJECT INSULIN 4 TIMES EACH DAY Rx Instructions: As directed Januvia 50 mg tablet PO DAILY Patient Comments: TAKE 1 TABLET 1 TIME EACH DAY rosuvastatin 20 mg tablet PO DAILY Patient Comments: TAKE 1 TABLET 1 TIME EACH DAY hydroxyzine HCl 25 mg tablet PO ONCE Patient Comments: TAKE 1 TABLET 1 TIME EACH DAY (DME) OneTouch Ultra Test Strip See Rx Instructions .ROUTE .MEDSUPPLY Qty: 10 Patient Comments: USE TO CHECK BLOOD SUGAR 3 TIMES EACH DAY Rx Instructions: As directed lamotrigine 150 mg tablet PO DAILY Patient Comments: TAKE 1 TABLET 1 TIME EACH DAY IN THE MORNING (DME) Dexcom G7 Sensor Device See Rx Instructions .ROUTE .MEDSUPPLY Qty: 1 Patient Comments: USE TO MONITOR BLOOD SUGAR. REPLACE EVERY 10 DAYS Rx Instructions: As directed insulin lispro 100 unit/mL insulin pen SQ DAILY Patient Comments: INJECT 6 UNITS UNDER THE SKIN 3 TIMES EACH DAY BEFORE MEALS. FOR EACH 30 UNITS THAT BLOOD SUGAR IS OVER 150, INCREASE DOSE BY 1 UNIT. DO NOT INJECT MORE THAN 60 UNITS IN 1 DAY. gabapentin 800 mg tablet PO DAILY Patient Comments: TAKE 1 TABLET 4 TIMES EACH DAY insulin glargine [Lantus Solostar U-100 Insulin] 100 unit/mL (3 mL) insulin pen SQ DAILY Patient Comments: INJECT 34 UNITS UNDER THE SKIN 1 TIME EACH DAY IN THE EVENING PLUS TITRATION ADVISED. MAX DOSE OF 50 UNITS A DAY. (DME) Dexcom G7 Credit Products Officer Misc See Rx Instructions .ROUTE .MEDSUPPLY Qty: 1 Patient Comments: USE TO MONITOR BLOOD SUGAR DIRECTED Rx Instructions: As directed (DME) Dexcom G6 Transmitter Device See Rx Instructions .ROUTE .MEDSUPPLY Qty: 1 Patient Comments: USU TO MEASURE BLOOD SUGAR DIRECTED. REPLACE AFTER 90 DAYS. Rx Instructions: As directed nicotine 21 mg/24 hr patch 24 hour 1 patch topical DAILY Patient Comments: APPLY 1 PATCH ONTO THE SKIN 1 TIME EACH DAY DIRECTED. REMOVE BEFORE APPLYING NEXT PATCH. ibuprofen 800 mg tablet PO PRN Patient Comments: TAKE 1 TABLET 3 TIMES EACH DAY WITH FOOD NEEDED FOR PAIN Clenpiq 10 mg-3.5 gram- 12 gram/175 mL solution 175 ml PO DAILY Qty: 350 0RF Rx Instructions: take first dose at 5-9PM evening before colonoscopy; 2nd dose the next day approximately 5 hrs before colonoscopy insulin glargine U-300 conc 300 UNIT/ML insulin pen 8 units SQ BID 30 Days Qty: 1 0RF glucagon HCl 1 MG recon soln 1 mg IJ NEEDED PRN (Reason: Blood Sugar - Low) Qty: 1 0RF Rx Instructions: Use as directed for hypoglycemic emergency. cefdinir 300 mg capsule 300 mg PO BID 5 Days Qty: 10 0RF Referrals Follow up/Referrals: Jessica Man [Primary Care Provider, Medical] - See instructions Clinical Impressions Clinical Impression: Decompensated cirrhosis, AAT ([id number]) deficiency, Ascites Instructions Patient Instructions: DI for Acute Abdominal Pain Print Language Print Language: Honduran Discharge ED Provider: Peter Johnson General Adult HPI General Chief complaint: Abdominal Pain Stated complaint: SOA,vomiting,retaining fluid in abd,on liver trasp Time Seen by Provider: 06/18/25 16:26 Mode of Arrival: Ambulatory Source of Information: Patient Description of Symptoms (Recalled from ER Triage Doc. by RN): patient present ot the ED with abdominal swelling, shortness of air, and vomiting. Patient gets paracentesis' done every 7-10 days. last one was at [facility] 2 weeks ago. they removed 7 liters. History of Present Illness HPI narrative: 55-year-old with a history of alpha 1 antitrypsin with decompensated cirrhosis being followed by liver transplant at recently ran out of her insurance so she has been getting paracentesis through emergency departments she has had 18 paracentesis most recently at [facility] 2 weeks ago. Typically has more than 5 L taken off and albumin replaced which she requested again today. No significant dyspnea fevers chills abdominal pain etc. Related Data Home Medications ?Medication ?Instructions ?Recorded ?Confirmed aspirin 81 mg tablet,delayed 81 mg PO DAILY preventitive 30 01/19/19 02/25/24 release days #30 tabs duloxetine 60 mg capsule,delayed 60 mg PO DAILY Nausea & vomiting 01/19/19 02/25/24 release 30 days #60 caps fenofibrate nanocrystallized 145 145 mg PO DAILY Cholesterol 30 01/19/19 02/25/24 mg tablet days #30 tabs hydrochlorothiazide 25 mg tablet 25 mg PO DAILY Fluid 30 days #30 01/19/19 02/25/24 tabs cyclobenzaprine 10 mg tablet 10 mg PO TID PRN pain #90 tabs 05/27/19 02/25/24 omeprazole 40 mg capsule,delayed 40 mg PO DAILY stomach #30 caps 05/27/19 02/25/24 release blood sugar diagnostic (OneTouch #10 ea 02/17/24 02/25/24 Ultra Test strips) blood-glucose sensor (Dexcom G7 #1 ea 02/17/24 02/25/24 Sensor device) blood-glucose transmitter (Dexcom #1 ea 02/17/24 02/25/24 G6 Transmitter device) blood-glucose,life agent,cont #1 ea 02/17/24 02/25/24 (Dexcom G7 Credit Products Officer) gabapentin 800 mg tablet mg PO DAILY 02/17/24 02/25/24 hydroxyzine HCl 25 mg tablet mg PO ONCE 02/17/24 02/25/24 ibuprofen 800 mg tablet mg PO PRN 02/17/24 02/25/24 insulin glargine 100 unit/mL (3 unit SQ DAILY 02/17/24 02/25/24 mL) subcutaneous pen (Lantus Solostar U-100 Insulin) insulin lispro 100 unit/mL SQ DAILY 02/17/24 02/25/24 subcutaneous pen lamotrigine 150 mg tablet mg PO DAILY 02/17/24 02/25/24 linaclotide 290 mcg capsule mcg PO DAILY PRN 02/17/24 02/25/24 (Linzess) nicotine 21 mg/24 hr daily 1 patch topical DAILY 02/17/24 02/25/24 transdermal patch pen needle, diabetic 32 gauge x #1,200 ea 02/17/24 02/25/24 (BD Ultra-Fine Jazlyn Pen Needle) rosuvastatin 20 mg tablet mg PO DAILY 02/17/24 02/25/24 sitagliptin phosphate 50 mg tablet mg PO DAILY 02/17/24 02/25/24 (Januvia) Previous Rx's ?Medication ?Instructions ?Recorded glucagon HCl 1 mg solution for 1 mg IJ NEEDED PRN Blood Sugar 10/28/21 injection - Low #1 kit insulin glargine U-300 conc 300 8 units SQ BID 30 days #1 pen 10/28/21 unit/mL (1.5 mL) subcutaneous pen needle sod picosulf 10 mg-magnes 3.5 175 ml PO DAILY 2 doses #350 mL 05/05/24 gram-citric 12 gram/175 mL oral solution (Clenpiq) cefdinir 300 mg capsule 300 mg PO BID 5 days #10 caps 02/12/25 Allergies Allergy/AdvReac Type Severity Reaction Status Date / Time erythromycin base Allergy Mild Other Verified 05/25/25 15:18 empagliflozin (From Allergy Other Verified 05/25/25 15:18 Jardiance) [facility] Disclaimer: The information contained in this section may have been updated after the patient was seen, as this information can be updated by other users. Medical History (Updated 06/18/25 @ 17:04 by Peter Johnson MD) PTSD (post-traumatic stress disorder) Anxiety Depression Diabetes mellitus Cirrhosis of liver without mention of alcohol Esophagus disorder Surgical History History of abdominal paracentesis History of unilateral salpingectomy History of cholecystectomy Family History Other Asthma Cancer Coronary artery disease Diabetes FHx: mental illness Heart attack Hypertension Kidney disease Stroke Social History Smoking Status: Never smoker alcohol intake: never substance use type: denies use current occupational status: other Travel in the last 8 weeks?: None caffeine: Yes Have you lived/traveled outside [place] in past 30 days?: No Contact w/someone who lives/traveled outside [place] past 30 days?: No Exposure to someone with infectious disease in past 14 days?: No Do you have a fever (greater than 100.4 F or 38 C)?: No Have you tested positive for COVID-19?: No Exposed to someone with COVID-19 in past 14 days?: No Do you have a sore throat?: No Do you have a cough?: No Do you have any weakness?: No Do you have any diarrhea?: No Are you experiencing any unusual bleeding?: No Do you have any muscle aches/pain?: No Do you have any abdominal pain?: No Are you experiencing loss of taste or smell?: No Other Medical History Have you received the Flu Vaccine for this season: No Have you received the Pneumonia Vaccine: Yes ROS Obtained: Yes All systems reviewed & no additional complaints except as documented Physical Exam General General appearance: alert and in no apparent distress Respiratory Respiratory exam: Present normal lung sounds bilaterally Cardiovascular Cardiovascular exam: Present regular rate Abdominal Exam Abdominal exam: Present distention (Sequela on exam consistent with cirrhosis) Neurological Exam Neurological exam: Present alert and oriented X3 Medical Decision Making Medical Records Screening: Per USPSTF and CDC recommendations, given the prevalence of disease in our region, it is our hospital?s policy to screen for HIV and viral Hepatitis for all patients aged 18 and over and those with ongoing risk factors. Helder Inquiry Pt receiving controlled substance: No Vital Signs: 06/18/25 15:54 06/18/25 17:53 06/18/25 18:00 Temperature 97.5 F L Temperature Source Temporal Artery Scan Pulse Rate 60 90 Pulse Rate [Left Radial] 96 H Respiratory Rate 16 Blood Pressure 107/62 L 129/64 Blood Pressure [Left Arm] 125/63 Blood Pressure Mean [Left Arm] 83 Blood Pressure Source [Left Arm] Automatic Cuff Blood Pressure Position [Left Arm] Sitting 02 Sat by Pulse Oximetry 99 90 L 97 Oxygen Delivery Method Room Air 06/18/25 18:30 Temperature Temperature Source Pulse Rate 93 H Pulse Rate [Left Radial] Respiratory Rate Blood Pressure 118/70 Blood Pressure [Left Arm] Blood Pressure Mean [Left Arm] Blood Pressure Source [Left Arm] Blood Pressure Position [Left Arm] 02 Sat by Pulse Oximetry 97 Oxygen Delivery Method Lab Data Lab results reviewed: Yes I reviewed the patient's lab results. Lab Results 06/18/25 16:59: Fluid Source Peritoneal fluid, Fluid Volume 4500, Fluid Appearance Cloudy, Fluid RBC (Auto) < 2000, Fld Tot Nucleated Cell 177 06/18/25 17:15: WBC 8.1, RBC 3.67 L, Hgb 10.1 L, Hct 30.7 L, MCV 83.7, MCH 27.5, MCHC 32.9, RDW 18.0 H, Plt Count 173, MPV 9.3, Neut % (Auto) 70.2, Lymph % (Auto) 13.6, [place] % (Auto) 8.3, Eos % (Auto) 6.5, Baso % (Auto) 1.0, Neut # (Auto) 5.7, Lymph # (Auto) 1.1, [place] # (Auto) 0.7, Eos # (Auto) 0.5 H, Baso # (Auto) 0.1, PT 12.5, INR 1.14 H, APTT 30.6, Sodium 136, Potassium 3.8, Chloride 105, Carbon Dioxide 24, Anion Gap 10.8, BUN 27 H, Creatinine 1.20 H, Estimated Creat Clear 77, Estimated GFR 47 L, Est GFR ( Amer) 56 L, Glucose 113 H, Calcium 9.1, Total Bilirubin 3.3 H, AST 113 H, ALT 34, Alkaline Phosphatase 168 H, Total Protein 7.9, Albumin 3.8, Globulin 4.1 H, Albumin/Globulin Ratio 0.9 L 06/18/25 17:15 06/18/25 17:15 Orders (Tests/Meds): ORDERS Category Date Time Status POCUS Point of Care (ER Only) Stat Exams 06/18/25 16:41 Completed Body Fluid: Cell Count w/ Diff Stat Lab 06/18/25 16:59 Results CBC w/Auto Diff [Complete Blood Count Auto Diff] Stat Lab 06/18/25 17:15 Completed CMP [Comprehensive Metabolic Panel] Stat Lab 06/18/25 17:15 Completed PT/PTT Stat Lab 06/18/25 17:15 Completed Body Fluid Cult & Gram Stain Stat Micro 06/18/25 16:59 Received Medical Decision Narrative: Patient with above history and physical discussed with her the risk and benefits of doing less than 5 versus greater than 5 she understands fluid shifts and renal insufficiency etc. we will give albumin and drains but fluid off is possible from a therapeutic standpoint. Therapeutic paracentesis was performed without any difficulty with real-time ultrasound guidance. Labs are pending including cell count and cultures. Will reassess after she is complete with drainage. Reassessment 615 4-1/2 L were drained at which point drainage stopped. Labs at her baseline awaiting cell count patient will be discharged no indication for any administration of albumin at the moment Reassessment 7 PM cell count has returned nucleated cells less than 250 is not consistent with SBP patient discharged in stable condition will follow-up outpatient with her doctors Procedures Paracentesis Time Out Performed: Yes Local Anesthetic: lidocaine 1% and with epi Amount of anesthesia used (mL): 10 Fluid: cloudy Post Procedure Exam: awake, alert Patient Tolerated Procedure: well Complications: none Miscellaneous Procedure Procedure Performed: Limited abdominal ultrasound Indication marking for real-time guidance of paracentesis Images were saved depth were marked patient tolerated procedure Critical Care Critical Care Time Critical Care Time: No
[2025-06-18 17:38] LABS: Hematocrit 30.7 % (37.0-47.0); Hemoglobin 10.1 g/dL (12.2-16.2); Immature Granulocytes % 0.4 %; Mean Corpuscular HGB Conc 32.9 g/dL (31.8-35.4); Mean Corpuscular Hemoglobin 27.5 pg (27.0-31.2); Mean Corpuscular Volume 83.7 fl (81-99); Nucleated Red Blood Cells % 0 %; Platelet Count 173 K/mm3 (142-424); Red Blood Count 3.67 M/mm3 (4.20-5.40); Red Cell Distribution Width-SD 54.9 fL; White Blood Count 8.1 K/mm3 (4.8-10.8)
[2025-06-18 17:40] LABS: Albumin Level 3.8 g/dl (3.5-5.0); Chloride 105 mmol/L (98-107); Potassium 3.8 mmoL/L (3.5-5.1); Sodium 136 mmol/L (136-145)
[2025-06-18 17:43] LABS: Alanine Aminotransferase 34 U/L (12-78); Albumin/Globulin Ratio 0.9 (1.1-1.8); Alkaline Phosphatase 168 U/L (38-126); Anion Gap 10.8 mEq/L (5-15); Aspartate Amino Transferase 113 U/L (14-36); Bilirubin,Total 3.3 mg/dl (0.2-1.3); Blood Urea Nitrogen 27 mg/dl (7-17); Carbon Dioxide 24 mmol/L (22.0-30.0); Creatinine Clearance Estimated 77 mL/min (50-200); Creatinine,Serum 1.20 mg/dl (0.52-1.04); Estimated Glomerular Filt Rate 47 ml/min (>60); GFR (African American) 56 ML/MIN (>60); Globulin 4.1 g/dL (1.3-3.2); Total Protein,Serum 7.9 g/dl (6.3-8.2)
[2025-06-18 17:44] LABS: Calcium 9.1 mg/dl (8.4-10.2); Glucose 113 mg/dl (74-100)
[2025-06-18 17:45] LABS: Activated Partial Thrombo Time 30.6 seconds (22.8-30.6); INR 1.14 (0.9-1.1); Prothrombin Time 12.5 seconds (10.1-12.5)
[2025-06-18 17:51] LABS: Appearance,Body Fld. Cloudy; Source, Body Fld. Peritoneal Fluid
[2025-06-18 17:53] VITALS: BP 107/62; PULSE 60; O2SAT 90
[2025-06-18 18:00] VITALS: BP 129/64; PULSE 90; O2SAT 97
[2025-06-18 18:30] VITALS: BP 118/70; PULSE 93; O2SAT 97
[2025-06-18 18:58] LABS: RBC,Body Fluid < 2000 cells/uL (< 10 X 10^3); TNC,Body Fluid 177 cells/uL (< 1000); Volume,Body Fld. 4500 mL
[2025-06-18 19:02] VITALS: BP 121/71; PULSE 90; RESP 18; TEMP 36.8; O2SAT 99
[2025-06-18 19:02] LABS: Mononuclear WBCs,Body Fluid 85 %; Polynuclear WBC,Body Fluid 15 %
== END 2025-06-18 19:07 | disposition home or self-care (01) ==
PROVIDERS: Emergency Provider Student in an Organized Health Care Education/Training Program; PCP Nurse Practitioner Family
DX: K74.60 Unspecified cirrhosis of liver (principal); E88.01 Alpha-1-antitrypsin deficiency; R18.8 Other ascites; R06.02 Shortness of breath
CPT/HCPCS: 49083; 80053; 85025; 85610; 85730; 87070; 87205; 89051; 99284; J2004

== ENCOUNTER 2025-06-28 13:41 | Emergency (ER) | payer SELFPAY ==
--- OUTSIDE RECORDS SUMMARY | 2025-06-25 09:00 | XMS_ITS | Encounter Summary ---
Author Organization Healthcare Address [address] [place] [address] Care Team Providers Care Building Custodial Supervisor Name Role Phone Jessica Man HEATING AND BLENDING SUPERVISOR Primary Care Provider [phone] Mary Lim HEATING AND BLENDING SUPERVISOR Unavailable [phone] Reason for Visit * Reason Comments Liver Txp ICE * Consultation (Routine) - Closed Specialty Diagnoses / Procedures Referred By Contac t Referred To Contact Transplant Diagnoses End-stage liver disease (CMS/HCC) Donnie Jordan MD [address] [facility] [address] [place] [address] Phone: tel: fax: [facility] [address] [address] Phone: tel: fax: Referral ID Status Reason Start Date Expiration Date V isits Requested Visits Authorized [id number] Closed Specialty Services Required 05/26/2025 11/25/2026 1 1 Encounter Details Date Type Department Care Team (Late st Contact Info) Description 06/25/2025 9:00 AM EDT Office Visit [facility] [address] [facility] [address] [place] [phone] Orlando Fierro MD [address] [facility] [address] [place] [address] End-stage liver disease (CMS/HCC) (Primary Dx); Decompensated [...] or hopeless Several days 06/25/2025 7:29 AM EDT Jessie Pedroza RN Patient Health Questionnaire-2 Score 1 06/25/2025 [...] 06/25/2025 7:29 AM Meredith Lowe RN * If you checked off any problems on this questionnaire so far, Question Answer Date of Assessment Author How difficult have these problems made it for you to do your work, take care of things at home, or get along with other people? Somewhat difficult 06/25/2025 7:29 AM Meredith Lowe RN * [...] Luz and her , [place], to introduce restaurant server support and establish rapport. I introduced the role of the restaurant server on the interdisciplinary team and made them aware of the ongoing availability of restaurant server support. Luz and [place] expressed receptivity to [...] which will allow her to return to [facility] for her paracentesis. 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 [...] Description 07/02/2025 12:20 PM EDT Office Visit [facility] [address] [place] [address] Kira Ramirez, HEATING AND BLENDING SUPERVISOR [address] [place] [address] 07/22/2025 3:40 PM EDT Office Visit [facility] Endocr[facility]ology [address] [place] [address] Silvia Lewis, HEATING AND BLENDING SUPERVISOR [address] [place] [address] 08/04/2025 9:30 AM EDT Clinical Support [facility] [address] [place] [address] 08/04/2025 11:00 AM EDT Office Visit [facility] [address] [place] [address] Lily Dickinson MD [address] [place] [address] documented as of this encounter Visit Diagnoses Diagnosis End-stage liver disease (CMS/HCC)- Primary Other sequelae of chronic liver disease Decompensated hepatic cirrhosis (CMS/HCC) Other ascites 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 Tobacco abuse Tobacco use disorder documented in this encounter Additional Health Concerns Assessment Noted Time PHQ-9 Depression Total Score: 12 025 7:29 AM EDT A fall risk assessment has been complete d for the patient 06/25/2025 7:29 AM EDT A Body Mass Index follow-up plan has been documented for the patient 06/26/2025 4:32 PM EDT documented as of this encounter Care Teams Building Custodial Supervisor Relationship Specialty Start Date End Date Jessica Man, HEATING AND BLENDING SUPERVISOR [address] [place] [id number] PCP - General 02/24/21 Mary Lim APRN [address] [place] [address] Referring Physician Gastroenterology 05/11/25 documented as of this encounter
[2025-06-28] VITALS (20 sets, daily range): BP systolic 97–120; BP diastolic 54–71; PULSE 89–94; RESP 16; TEMP 36.7; O2SAT 96–100; BMI 31.0
--- OUTSIDE RECORDS SUMMARY | 2025-06-28 14:39 | XMS_ITS | Encounter Summary ---
Author Organization Healthcare Address [address] [place] [address] Care Team Providers Care Bee Rancher Name Role Phone Jessica Man PACKERHEAD MACHINE OPERATOR Primary Care Provider [phone] Mary Lim PACKERHEAD MACHINE OPERATOR Unavailable [phone] Encounter Details Date Type Department Care Team (Late st Contact Info) Description 06/28/2025 Telephone [facility] Transplant [facility] [address] [facility] [address] [place] [address] Jaci Duenas, RN [facility] LIVER [id number] [address] [phone] Social History Tobacco Use Types Packs/Day Years Used Date Smoking Tobacco: Former Cigarettes 0.5 30 0 10/14/1992 - 06/10/2025 Smokeless Tobacco: Never Comments:Smoking for 30+ yea rs Alcohol Use Standard Drinks/Week Comments Never 0 [...] encounter Miscellaneous Notes * Telephone Encounter - Jaci Duenas, RN - 06/28/2025 11:37 AM EDT Pt called stating she forgot to mention to MD during her appt last week about the constant itching she was having. Spoke with with Dr toussaint and 10mg hydroxyzine bid was sent to local provider. Pt notified and verbalized understanding documented in this encounter Plan of Treatment Upcoming Encounters Date Type Department Care Team (Late st Contact Info) Description 07/02/2025 12:20 PM EDT Office Visit [facility] Medicine Specialties [address] [place] [address] Kira Ramirez, PACKERHEAD MACHINE OPERATOR [address] [facility] [address] [place] [address] 07/22/2025 3:40 PM EDT Office Visit [facility] Endocrinology [address] [place] [phone] Silvia Lewis S, PACKERHEAD MACHINE OPERATOR [address] [facility] [address] [place] [address] 08/04/2025 9:30 AM EDT Clinical Support [facility]plant [facility] [address] [facility] [address] [place] [address] 08/04/2025 11:00 AM EDT Office Visit [facility] [address] [facility] [address] [place] [address] Lily Dickinson MD [address] [facility] [address] [place] [address] documented as of this encounter Visit Diagnoses [...] documented as of this encounter Care Teams Bee Rancher Relationship Specialty Start Date End Date Jessica Man APRN [address] [place] [address] PCP - General 02/24/21 Mary Lim APRN [address] [place] [address] Referring Physician Gastroenterology 05/11/25 documented as of this encounter
--- OUTSIDE RECORDS SUMMARY | 2025-06-28 14:39 | XMS_ITS | Encounter Summary ---
Author Organization [employer] ([place], [place], [place], [place]) Address [address] [place] [address] Care Team Providers Care Garment Looper Name Role Phone Unavailable Primary Care Provider Unavailabl e Encounter Details Date Type Department Care Team (Late st Contact Info) Description 11/05/2018 Transcribed Document [facility] [place] [facility] [address] ProviderHugh MD [address] [place], [place] [phone] Social History Tobacco Use Types Packs/Day Years Used Date Smoking Tobacco: Never Assessed Comments Unknown Sex and Gender Information Value Date Recorded Sex Assigned at Female 04/10/2022 8:21 PM CDT Legal Sex Female 8:21 PM CDT Gender Identity Female 04/10/2022 8:21 PM CDT Sexual Orientation Not on file documented as of this encounter Miscellaneous Notes * Cerner Conversion Note - Hugh Mccollum MD - 11/05/2018 3:35 PM HEALTH CLAIMS EXAMINER DATE OF PROCEDURE: LEFT HEART CATHETERIZATION REPORT INDICATION: Lifestyle limiting 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 REFERRING PHYSICIAN: 1. Dr. Honey Ibanez. 2. Shanon Escobar APRN. PROCEDURE: Standard left heart catheterization. TECHNIQUE: A 5/6-Russian sheath was placed in the right radial artery. 5 mg verapamil and 3000 units of heparin were administered via the radial artery sheath. Joel catheter was used for selective angiography of the alturas vessel. It was also used to cross into the left ventricle where pressures were measured. Left ventriculogram was not performed. Following the diagnostic catheterization, the radial artery sheath was removed and the access site was successfully compressed using a TR band. No complications. HEMODYNAMICS: Left ventricle 100/10 mmHg. Aorta 100/60 mmHg. DIAGNOSES: 1. Mild coronary artery atherosclerosis. 2. Normal left ventricular filling pressure without gradient across the aortic valve. CORONARY ANATOMY: 1. Left main trunk: Angiographically normal. 2. LAD: Large caliber vessel which gives rise to two tiny diagonal branches, moderate caliber third diagonal branch before extending beyond the apex. Mild atherosclerosis present in the LAD and diagonal branches. 3. Circumflex artery: Large caliber vessel which gives rise to a tiny high lateral branch moderate caliber posterior lateral branch. Luminal irregularities present in the circumflex artery. 4. Right coronary artery: Dominant vessel. Large caliber vessel which gives rise to a large caliber posterior descending artery, a large caliber posterolateral branch. Luminal irregularities present in the right coronary artery. 5. Left ventricle: Normal left ventricular filling pressure without gradient across the aortic valve. IMPRESSION: Angiographically, the patient has mild coronary artery atherosclerosis. There is no indication for revascularization. Risk factor modification, medical management is recommended. Joe Clay M.D. Dict: 11/05/2018 15:35:56 Trans: 11/05/2018 20:13:05 CC1: Joe Clay M.D. CC2: Dr. Honey Ibanez CC3: Shanon Escobar APRN Electronically signed by [facility] Conversion Instructor Physical Education Cerner at 01/31/2023 5:39 PM CDT documented in this encounter Plan of Treatment Not on file documented as of this encounter Visit Diagnoses Not on filedocumented in this encounter
--- OUTSIDE RECORDS SUMMARY | 2025-06-28 14:39 | XMS_ITS | Encounter Summary ---
Author Organization [employer] ([place], [place], [place], [place]) Address [address] [place] [address] Care Team Providers Care Online Advertising Director Name Role Phone Unavailable Primary Care Provider Unavailabl e Encounter Details Date Type Department Care Team (Late st Contact Info) Description 11/05/2018 Transcribed Document [facility] [place] [place] [address] ProviderHugh MD [address] [place], [place] [phone] Social History Tobacco Use Types Packs/Day Years Used Date Smoking Tobacco: Never Assessed Comments Unknown Sex and Gender Information Value Date Recorded Sex Assigned at Female 04/10/2022 8:21 PM CDT Legal Sex Female 8:21 PM CDT Gender Identity Female 04/10/2022 8:21 PM CDT Sexual Orientation Not on file documented as of this encounter Miscellaneous Notes * Cerner Conversion Note - Hugh ProviderMD - 11/05/2018 5:32 PM WATER PLUMBER Discharge Instructions Entered On: 11/05/2018 17:34 EST Performed On: 11/05/2018 17:32 EST by BARRY PEREIRA RN DC Instructions HWD Stroke/TIA Discharge Ins : N/A Heart Failure Discharge Ins : N/A Warfarin Discharge Ins : N/A Diet After Discharge : Heart healthy diet, Diabetic diet, Other: drink extra fluids for the next couple of days to flush dye from you Activity After Discharge : Rest and relax today, No strenuous activities, Other: do not lift over one pound with your right arm for 2 days or 5 pounds total for 5 days Driving After Discharge : Other: do not drive for 24 hours after the procedure Showering/Bathing : Other: you may remove the dressing from your right arm tomorrow and then shower. No tub baths or soaking your arm in water until the incision has fully healed Wound/Incision Care After Discharge : Keep operative site/wound site clean and dry, Other: Remove the dressing from your right arm tomorrow and then gently clean with soap and water daily Special Instructions : STOP your METFORMIN for 48 hours, then restart as prescribed. If bleeding, apply pressure as shown and call 911. BARRY PEREIRA RN - 11/05/2018 17:32 EST documented in this encounter Plan of Treatment Not on file documented as of this encounter Visit Diagnoses Not on filedocumented in this encounter
--- OUTSIDE RECORDS SUMMARY | 2025-06-28 14:39 | XMS_ITS | Encounter Summary ---
Author Organization Healthcare Address [address] [place] [address] Care Team Providers Care Broomcorn Grader Name Role Phone Jessica Man HAND BULLDOZER Primary Care Provider [phone] Mary Lim HAND BULLDOZER Unavailable [phone] Encounter Details Date Type Department Care Team (Late st Contact Info) Description 06/28/2025 Orders Only [facility] Transplant [facility] [address] [place] [address] Jaci Duenas, RN [facility] LIVER [id number] [address] [phone] Social History Tobacco Use Types Packs/Day Years [...] Description 07/02/2025 12:20 PM EDT Office Visit [facility] Medicine Specialties [address] [place] [address] Kira Ramirez, HAND BULLDOZER [address] [place] [phone] 07/22/2025 3:40 PM EDT Office Visit [facility] Endocrinology [address] [place] [phone] Silvia Lewis, HAND BULLDOZER [address] [place] [address] 08/04/2025 9:30 AM EDT Clinical Support [facility] Transplant [facility] [address] [place] [address] 08/04/2025 11:00 AM EDT Office Visit [facility] [address] [place] [address] Lily Dickinosn MD [address] [facility] [address] [place] [address] documented as of this encounter [...] documented as of this encounter Care Teams Broomcorn Grader Relationship Specialty Start Date End Date Jessica Man, HAND BULLDOZER [address] [place] [address] PCP - General 02/24/21 Mary Lim HAND BULLDOZER [address] [place], [place] [phone] Referring Physician Gastroenterology 05/11/25 documented as of this encounter
--- OUTSIDE RECORDS SUMMARY | 2025-06-28 14:39 | XMS_ITS | Clinical Summary ---
Author Organization [employer] ([place], [place], [place], [place]) Address [address] [place] [address] Care Team Providers Care City Surveyor Name Role Phone Unavailable Primary Care Provider Unavailabl e Social History Tobacco Use Types Packs/Day Years Used Date Smoking Tobacco: Never Assessed Comments Unknown Sex and Gender Information Value Date Recorded Sex Assigned at Female 04/10/2022 8:21 PM CDT Legal Sex Female 8:21 PM CDT Gender Identity Female 04/10/2022 8:21 PM CDT Sexual Orientation Not on file Plan of Treatment Not on file Insurance [facility] [place] [address]
--- OUTSIDE RECORDS SUMMARY | 2025-06-28 14:39 | XMS_ITS | Encounter Summary ---
Author Organization Healthcare Address [address] [place] [address] Care Team Providers Care Shipping Packer Name Role Phone Jessica Man PETAL SHAPER HAND Primary Care Provider [phone] Mary Lim PETAL SHAPER HAND Unavailable [phone] Encounter Details Date Type Department Care Team (Latest Contact Info) Description 06/23/2025 Travel Social History Tobacco Use Types Packs/Day [...] Description 07/02/2025 12:20 PM EDT Office Visit [facility] Medicine Specialties [address] [place] [address] Kira Ramirez, PETAL SHAPER HAND [address] [place] [address] 07/22/2025 3:40 PM EDT Office Visit [facility] Endocrinology [address] [place] [address] Silvia Lewis APRN [address] [place] [address] 08/04/2025 9:30 AM EDT Clinical Support [facility] [place] [address] [place] [address] 08/04/2025 11:00 AM EDT Office Visit [facility] [place] [address] [place] [address] Lily Dickinson MD [address] [place] [address] documented as of this encounter [...] documented as of this encounter Care Teams Shipping Packer Relationship Specialty Start Date End Date Jessica Man APRN [address] [place] [address] PCP - General 02/24/21 Mary Lim APRN [address] [place] [address] Referring Physician Gastroenterology 05/11/25 documented as of this encounter
--- OUTSIDE RECORDS SUMMARY | 2025-06-28 14:39 | XMS_ITS | Encounter Summary ---
Author Organization [employer] ([place], [place], [place], [place]) Address [address] [place] [address] Care Team Providers Care Coke Drawer Hand Name Role Phone Unavailable Primary Care Provider Unavailabl e Encounter Details Date Type Department Care Team (Late st Contact Info) Description 11/05/2018 Transcribed Document [facility] Family Medicine [facility] [place] [address] ProviderHugh MD [address] [place] [id number] Social History Tobacco Use Types Packs/Day Years [...] Note - Hugh Mccollum MD - 11/05/2018 6:36 PM COMMUNICATIONS ADMINISTRATOR [address] , [place] [address] Patient Copy Patient Information: Name: CHARLES JASMINE Current Date: 11/05/2018 18:36:54 : 1970 Patient Address: [address] [place] [address] S[place]I AYALA [address] Patient Attending Physician: YARI CHACKO MD-KATI Primary Care Provider: SHERINE BLEVINS RN-[facility] Primary Care Provider Discharge Diagnosis: Weight on Admission: 191 lb, 0 oz Comment: Follow-up Instructions: With: Address: When: JORDI IBANEZ [address], [place] [address] Business (1) Within 1 month Comments: Call and make a folllow up appointment with Dr. Ibanez for one month...notify her sooner if any problems. Discharge Instructions: Diet after Discharge: Heart healthy diet, Diabetic diet, Other: drink extra fluids for the next couple of days to flush dye from you Activity after Discharge: Rest and relax today, No strenuous activities, Other: do not lift over one pound with your right arm for 2 days or 5 pounds total for 5 days Driving after Discharge: Other: do not drive for 24 hours after the procedure Work/School Release Given: Yes Showering/Bathing:Other: you may remove the dressing from your right arm tomorrow and then shower. No tub baths or soaking your arm in water until the incision has fully healed Wound/Incision Care after Discharge: Keep operative site/wound site clean and dry, Other: Remove the dressing from your right arm tomorrow and then gently clean with soap and water daily Immunizations Documented During Stay: No Immunizations Found Worker's Compensation Paperwork Completed: No Special Instructions: STOP your METFORMIN for 48 hours, then restart as prescribed. If bleeding, apply pressure as shown and call 911. Heart Failure Discharge Instructions (if any): Stroke Related Discharge Instructions (if any): Warfarin Related Discharge Instructions (if any): Final Medication List: Other Medications albuterol (Ventolin HFA 90 mcg/inh inhalation aerosol) 2 Puff(s) Inhalation Two Times A Day. aspirin (aspirin 81 mg oral tablet) 1 Tablet(s) Oral Every Day. DULoxetine (Cymbalta 60 mg oral delayed release capsule) 1 Capsule(s) Oral Every Day. (do not crush or chew). fenofibrate (TriCor 48 mg oral tablet) 1 Tablet(s) Oral Every Day. gabapentin 600 Milligram(s) Oral Four Times A Day. hydroCHLOROthiazide (hydroCHLOROthiazide 25 mg oral tablet) 1 Tablet(s) Oral Every Day. ibuprofen 600 Milligram(s) Oral Two Times A Day. metFORMIN (metFORMIN 1000 mg oral tablet, extended release) 1 Tablet(s) Oral Two Times A Day. nitroglycerin (Nitrostat 0.4 mg sublingual tablet) 1 Tablet(s) SubLINgual every 5 minutes as needed Chest Pain. umeclidinium-vilanterol (Anoro Ellipta 62.5 mcg-25 mcg/inh inhalation powder) 1 Puff(s) Inhalation Every Day. Patient Allergies: Chantix; erythromycin Medication Instructions: Take your medications faithfully. Do NOT skip medication. Do NOT stop taking medications without the direction of a physician. Carry a list of your medications with you at all times, and take this medication list with you to your first follow up visit. Report any side effects. Avoid herbal remedies unless discussed with your physician. As part of your treatment plan, your physician may have prescribed a limited course of a controlled substance. This medication may be given to help people with moderate or severe pain or for other medical conditions, but there are risks involved with treatment. Common side effects may include nausea, constipation, drowsiness, sweating, itching, dry mouth, and rash. More serious side effects may include cognitive and motor impairment, like problems with thinking, concentrating, alertness, and movement (e.g. slowed reflexes), and driving and operating heavy machinery can be dangerous. It is important for you to talk to your physician if you have these side effects or questions. These controlled substances can produce physical dependence and be habit-forming if taken for an extended period of time, which means that the body has gotten used to them and may experience withdrawal symptoms if they are abruptly stopped. Withdrawal symptoms can include runny nose, sweating, goose bumps, diarrhea, abdominal cramping, rapid heartbeat, difficulty sleeping, and nervousness. Patient education materials: Steps to Quit Smoking Smoking tobacco can be harmful to your health and can affect almost every organ in your body. Smoking puts you, and those around you, at risk for developing many serious chronic diseases. Quitting smoking is difficult, but it is one of the best things that you can do for your health. It is never too late to quit. What are the benefits of quitting smoking? When you quit smoking, you lower your risk of developing serious diseases and conditions, such as: ??? Lung cancer or lung disease, such as COPD. ??? Heart disease. ??? Stroke. ??? Heart attack. ??? Infertility. ??? Osteoporosis and bone fractures. Additionally, symptoms such as coughing, wheezing, and shortness of breath may get better when you quit. You may also find that you get sick less often because your body is stronger at fighting off colds and infections. If you are , quitting smoking can help to reduce your chances of having a baby of low weight. How do I get ready to quit? When you decide to quit smoking, create a plan to make sure that you are successful. Before you quit: ??? Pick a date to quit. Set a date within the next two weeks to give you time to prepare. ??? Write down the reasons why you are quitting. Keep this list in places where you will see it often, such as on your bathroom mirror or in your car or wallet. ??? Identify the people, places, things, and activities that make you want to smoke (triggers) and avoid them. Make sure to take these actions: ? Throw away all cigarettes at home, at work, and in your car. ? Throw away smoking accessories, such as ashtrays and lighters. ? Clean your car and make sure to empty the ashtray. ? Clean your home, including curtains and carpets. ??? Tell your family, friends, and coworkers that you are quitting. Support from your loved ones can make quitting easier. ??? Talk with your health care provider about your options for quitting smoking. ??? Find out what treatment options are covered by your health insurance. What strategies can I use to quit smoking? Talk with your healthcare provider about different strategies to quit smoking. Some strategies include: ??? Quitting smoking altogether instead of gradually lessening how much you smoke over a period of time. Research shows that quitting ?cold turkey? is more successful than gradually quitting. ??? Attending in-person counseling to help you build problem-solving skills. You are more likely to have success in quitting if you attend several counseling sessions. Even short sessions of 10 minutes can be effective. ??? Finding resources and support systems that can help you to quit smoking and remain smoke-free after you quit. These resources are most helpful when you use them often. They can include: ? Online chats with a counselor. ? Telephone quitlines. ? Printed self-help materials. ? Support groups or group counseling. ? Text messaging programs. ? Mobile phone applications. ??? Taking medicines to help you quit smoking. (If you are or , talk with your health care provider first.) Some medicines contain nicotine and some do not. Both types of medicines help with cravings, but the medicines that include nicotine help to relieve withdrawal symptoms. Your health care provider may recommend: ? Nicotine patches, gum, or lozenges. ? Nicotine inhalers or sprays. ? Non-nicotine medicine that is taken by mouth. Talk with your health care provider about combining strategies, such as taking medicines while you are also receiving in-person counseling. Using these two strategies together makes you more likely to succeed in quitting than if you used either strategy on its own. If you are or , talk with your health care provider about finding counseling or other support strategies to quit smoking. Do not take medicine to help you quit smoking unless told to do so by your health care provider. What things can I do to make it easier to quit? Quitting smoking might feel overwhelming at first, but there is a lot that you can do to make it easier. Take these important actions: ??? Reach out to your family and friends and ask that they support and encourage you during this time. Call telephone quitlines, reach out to support groups, or work with a counselor for support. ??? Ask people who smoke to avoid smoking around you. ??? Avoid places that trigger you to smoke, such as bars, parties, or smoke-break areas at work. ??? Spend time around people who do not smoke. ??? Lessen stress in your life, because stress can be a smoking trigger for some people. To lessen stress, try: ? Exercising regularly. ? Deep-breathing exercises. ? Yoga. ? Meditating. ? Performing a body scan. This involves closing your eyes, scanning your body from head to toe, and noticing which parts of your body are particularly tense. Purposefully relax the muscles in those areas. ??? Download or purchase mobile phone or tablet apps (applications) that can help you stick to your quit plan by providing reminders, tips, and encouragement. There are many free apps, such as QuitGuide from the CDC (Centers for Disease Control and Prevention). You can find other support for quitting smoking (smoking cessation) through smokefree.gov and other websites. How will I feel when I quit smoking? Within the first 24 hours of quitting smoking, you may start to feel some withdrawal symptoms. These symptoms are usually most noticeable 2?3 days after quitting, but they usually do not last beyond 2?3 weeks. Changes or symptoms that you might experience include: ??? Mood swings. ??? Restlessness, anxiety, or irritation. ??? Difficulty concentrating. ??? Dizziness. ??? Strong cravings for sugary foods in addition to nicotine. ??? Mild weight gain. ??? Constipation. ??? Nausea. ??? Coughing or a sore throat. ??? Changes in how your medicines work in your body. ??? A depressed mood. ??? Difficulty sleeping (insomnia). After the first 2?3 weeks of quitting, you may start to notice more positive results, such as: ??? Improved sense of smell and taste. ??? Decreased coughing and sore throat. ??? Slower heart rate. ??? Lower blood pressure. ??? Clearer skin. ??? The ability to breathe more easily. ??? Fewer sick days. Quitting smoking is very challenging for most people. Do not get discouraged if you are not successful the first time. Some people need to make many attempts to quit before they achieve long-term success. Do your best to stick to your quit plan, and talk with your health care provider if you have any questions or concerns. This information is not intended to replace advice given to you by your health care provider. Make sure you discuss any questions you have with your health care provider. Document Released: 09/24/2002 Document Revised: 05/28/2017 Document Reviewed: 02/14/2016 [employer] Interactive Patient Education ? 2017 [employer]. Moderate Conscious Sedation, Adult, Care After These instructions provide you with information about caring for yourself after your procedure. Your health care provider may also give you more specific instructions. Your treatment has been planned according to current medical practices, but problems sometimes occur. Call your health care provider if you have any problems or questions after your procedure. What can I expect after the procedure? After your procedure, it is common: ??? To feel sleepy for several hours. ??? To feel clumsy and have poor balance for several hours. ??? To have poor judgment for several hours. ??? To vomit if you eat too soon. Follow these instructions at home: For at least 24 hours after the procedure: ??? Do not: ? Participate in activities where you could fall or become injured. ? Drive. ? Use heavy machinery. ? Drink alcohol. ? Take sleeping pills or medicines that cause drowsiness. ? Make important decisions or sign legal documents. ? Take care of children on your own. ??? Rest. Eating and drinking ??? Follow the diet recommended by your health care provider. ??? If you vomit: ? Drink water, juice, or soup when you can drink without vomiting. ? Make sure you have little or no nausea before eating solid foods. General instructions ??? Have a responsible adult stay with you until you are awake and alert. ??? Take guoz-hws-htuelec and prescription medicines only as told by your health care provider. ??? If you smoke, do not smoke without supervision. ??? Keep all follow-up visits as told by your health care provider. This is important. Contact a health care provider if: ??? You keep feeling nauseous or you keep vomiting. ??? You feel light-headed. ??? You develop a rash. ??? You have a fever. Get help right away if: ??? You have trouble breathing. This information is not intended to replace advice given to you by your health care provider. Make sure you discuss any questions you have with your health care provider. Document Released: 07/21/2014 Document Revised: 03/04/2017 Document Reviewed: 01/19/2017 [employer] Interactive Patient Education ? 2017 [employer] Radial Site Care Introduction Refer to this sheet in the next few weeks. These instructions provide you with information about caring for yourself after your procedure. Your health care provider may also give you more specific instructions. Your treatment has been planned according to current medical practices, but problems sometimes occur. Call your health care provider if you have any problems or questions after your procedure. What can I expect after the procedure? After your procedure, it is typical to have the following: ??? Bruising at the radial site that usually fades within 1?2 weeks. ??? Blood collecting in the tissue (hematoma) that may be painful to the touch. It should usually decrease in size and tenderness within 1?2 weeks. Follow these instructions at home: ??? Take medicines only as directed by your health care provider. ??? You may shower 24?48 hours after the procedure or as directed by your health care provider. Remove the bandage (dressing) and gently wash the site with plain soap and water. Pat the area dry with a clean towel. Do not rub the site, because this may cause bleeding. ??? Do nottake baths, swim, or use a hot tub until your health care provider approves. ??? Check your insertion site every day for redness, swelling, or drainage. ??? Do notapply powder or lotion to the site. ??? Do notflex or bend the affected arm for 24 hours or as directed by your health care provider. ??? Do notpush or pull heavy objects with the affected arm for 24 hours or as directed by your health care provider. ??? Do notlift over 10 lb (4.5 kg) for 5 days after your procedure or as directed by your health care provider. ??? Ask your health care provider when it is okay to:? Return to work or school. ? Resume usual physical activities or sports. ? Resume sexual activity. ??? Do notdrive home if you are discharged the same day as the procedure. Have someone else drive you. ??? You may drive 24 hours after the procedure unless otherwise instructed by your health care provider. ??? Do notoperate machinery or power tools for 24 hours after the procedure. ??? If your procedure was done as an outpatient procedure, which means that you went home the same day as your procedure, a responsible adult should be with you for the first 24 hours after you arrive home. ??? Keep all follow-up visits as directed by your health care provider. This is important. Contact a health care provider if: ??? You have a fever. ??? You have chills. ??? You have increased bleeding from the radial site. Hold pressure on the site. Get help right away if: ??? You have unusual pain at the radial site. ??? You have redness, warmth, or swelling at the radial site. ??? You have drainage (other than a small amount of blood on the dressing) from the radial site. ??? The radial site is bleeding, and the bleeding does not stop after 30 minutes of holding steady pressure on the site. ??? Your arm or hand becomes pale, cool, tingly, or numb. This information is not intended to replace advice given to you by your health care provider. Make sure you discuss any questions you have with your health care provider. Document Released: 11/02/2011 Document Revised: 03/07/2017 Document Reviewed: 04/18/2015 ? 2017 Elsevier Angiogram, Care After Refer to this sheet in the next few weeks. These instructions provide you with information about caring for yourself after your procedure. Your health care provider may also give you more specific instructions. Your treatment has been planned according to current medical practices, but problems sometimes occur. Call your health care provider if you have any problems or questions after your procedure. What can I expect after the procedure? After your procedure, it is typical to have the following: ??? Bruising at the catheter insertion site that usually fades within 1?2 weeks. ??? Blood collecting in the tissue (hematoma) that may be painful to the touch. It should usually decrease in size and tenderness within 1?2 weeks. Follow these instructions at home: ??? Take medicines only as directed by your health care provider. ??? You may shower 24?48 hours after the procedure or as directed by your health care provider. Remove the bandage (dressing) and gently wash the site with plain soap and water. Pat the area dry with a clean towel. Do not rub the site, because this may cause bleeding. ??? Do nottake baths, swim, or use a hot tub until your health care provider approves. ??? Check your insertion site every day for redness, swelling, or drainage. ??? Do not apply powder or lotion to the site. ??? Do notlift over 10 lb (4.5 kg) for 5 days after your procedure or as directed by your health care provider. ??? Ask your health care provider when it is okay to: ? Return to work or school. ? Resume usual physical activities or sports. ? Resume sexual activity. ??? Do notdrive home if you are discharged the same day as the procedure. Have someone else drive you. ??? You may drive 24 hours after the procedure unless otherwise instructed by your health care provider. ??? Do notoperate machinery or power tools for 24 hours after the procedure or as directed by your health care provider. ??? If your procedure was done as an outpatient procedure, which means that you went home the same day as your procedure, a responsible adult should be with you for the first 24 hours after you arrive home. ??? Keep all follow-up visits as directed by your health care provider. This is important. Contact a health care provider if: ??? You have a fever. ??? You have chills. ??? You have increased bleeding from the catheter insertion site. Hold pressure on the site. Get help right away if: ??? You have unusual pain at the catheter insertion site. ??? You have redness, warmth, or swelling at the catheter insertion site. ??? You have drainage (other than a small amount of blood on the dressing) from the catheter insertion site. ??? The catheter insertion site is bleeding, and the bleeding does not stop after 30 minutes of holding steady pressure on the site. ??? The area near or just beyond the catheter insertion site becomes pale, cool, tingly, or numb. This information is not intended to replace advice given to you by your health care provider. Make sure you discuss any questions you have with your health care provider. Document Released: 04/18/2006 Document Revised: 03/07/2017 Document Reviewed: 03/03/2014 [employer] Interactive Patient Education ? 2017 [employer] CIGARETTE SMOKING: The facts are clear, cigarette smoking will shorten your life. Smoking can cause many illnesses along the way. As a healthcare provider, we recommend that you stop smoking. Assistance with quitting is available by contacting 2-840-CJXW-NOW. This is a free resource providing counseling, support, and referral. Or you may contact your personal physician. STROKE is an EMERGENCY [employer] ACT F.A.S.T! FACE ?? Facial droop ?? Uneven smile ARM ?? Arm numbness ?? Arm weakness SPEECH ?? Slurred speech ?? Difficulty speaking or understanding TIME ?? Call 911 and get to the hospital immediately Have the ambulance go to the nearest stroke center. STROKE Risk Factors High blood pressure High cholesterol Heart Disease Diabetes Smoking Heavy alcohol use Physical inactivity and obesity Atrial Fibrillation (irregular heartbeat) Family history of stroke Reminder: Be sure to sign up for the [facility] patient portal, which gives you 06/05 access to your medical information ??? including these discharge instructions ??? using your computer, smartphone, or tablet. Just go to [employer] to get started. Questions? Call . [facility] would like to thank you for allowing us to assist you with your healthcare needs. MITALI Mason CONNIE SUE, (or passenger representative) have received the above patient education materials/instructions and have verbalized understanding: Patient Signature _ Date/Time Patient Knitting Teacher Signature (if needed) Date/Time Clinician/Hospital Knitting Teacher Signature (if needed) Date/Time documented in this encounter Plan of Treatment Not on file documented as of this encounter Visit Diagnoses Not on filedocumented in this encounter
--- OUTSIDE RECORDS SUMMARY | 2025-06-28 14:39 | XMS_ITS | Encounter Summary ---
Author Organization [employer] ([place], [place], [place], [place]) Address [address] [place] [address] Care Team Providers Care Inventory Checker Name Role Phone Unavailable Primary Care Provider Unavailabl e Encounter Details Date Type Department Care Team (Late st Contact Info) Description 11/05/2018 Transcribed Document [facility] [place] [facility] [place] [address] ProviderHugh MD [address] [place] [address] Social History Tobacco Use Types Packs/Day [...] Note - Hugh Mccollum MD - 11/05/2018 5:34 PM REPORTING ANALYST Patient Education Materials Follows: Moderate Conscious Sedation, Adult, Care After These [...] you are awake and alert. ??? Take jrsi-pjq-hnvlhxf and prescription medicines only as told by [...] 07/21/2014 Document Revised: 03/04/2017 Document Reviewed: 01/19/2017 [employer] Interactive Patient Education ? 2017 [employer] Pulmonary Medicine Steps to Quit Smoking Smoking tobacco can [...] 09/24/2002 Document Revised: 05/28/2017 Document Reviewed: 02/14/2016 [employer] Interactive Patient Education ? 2017 [employer] Radial Site Care Introduction Refer to [...] 03/07/2017 Document Reviewed: 04/18/2015 ? 2017 Elsevier Radiology Angiogram, Care After Refer to this sheet [...] 04/18/2006 Document Revised: 03/07/2017 Document Reviewed: 03/03/2014 [employer] Interactive Patient Education ? 2017 [employer] documented in this encounter Plan of Treatment Not on file documented as of this encounter Visit Diagnoses Not on filedocumented in this encounter
--- OUTSIDE RECORDS SUMMARY | 2025-06-28 14:39 | XMS_ITS | Encounter Summary ---
Author Organization [facility] Address [address] [place] [address] Care Team Providers Care Graphite Pan Drier Tender Name Role Phone Jessica Man PICKLE SORTER Primary Care Provider [phone] Mary Lim PICKLE SORTER Unavailable [phone] Encounter Details Date Type Department Care Team (Late st Contact Info) Description 05/24/2025 Telephone [facility] [address] [facility] [address] [place] [address] Edda Méndez [place] [phone] Social History Tobacco Use Types Packs/Day Years [...] Description 07/02/2025 12:20 PM EDT Office Visit [facility] Medicine Specialties [address], [address] [place] [address] Kira Ramirez D, PICKLE SORTER [address] [place] [address] 07/22/2025 3:40 PM EDT Office Visit [facility] Endocrinology [address] [place] [address] Silvia Lewis S, PICKLE SORTER [address] [facility] [address] [place] [address] 08/04/2025 9:30 AM EDT Clinical Support [facility] Transplant Center [address] [facility] [address] [place] [address] 08/04/2025 11:00 AM EDT Office Visit [facility] [address] [place] [address] Lily Dickinson MD [address] [place] [address] documented as of this encounter Visit Diagnoses [...] documented as of this encounter Care Teams Graphite Pan Drier Tender Relationship Specialty Start Date End Date Jessica Man APRN [address] [place], [place] [id number] PCP - General 02/24/21 Mary Lim APRN [address] [place] [address] Referring Physician Gastroenterology 05/11/25 documented as of this encounter
--- OUTSIDE RECORDS SUMMARY | 2025-06-28 14:39 | XMS_ITS | Encounter Summary ---
Author Organization [facility] Address [address] [place] [address] Care Team Providers Care Crop Farm Helper Name Role Phone Jessica Man RF TEST ENGINEER Primary Care Provider [phone] Mary Lim RF TEST ENGINEER Unavailable [phone] Encounter Details Date Type Department Care Team (Latest Contact Info) Description 06/24/2025 Travel Social History Tobacco Use Types Packs/Day [...] Description 07/02/2025 12:20 PM EDT Office Visit [facility] Medicine Specialties [address] [place] [address] Kira Ramirez, RF TEST ENGINEER [address] [place] [address] 07/22/2025 3:40 PM EDT Office Visit [facility] Endocrinology [address] [place] [address] Silvia Lewis APRN [address] [place] [address] 08/04/2025 9:30 AM EDT Clinical Support [facility] Trans[facility] [place] [address] [place] [address] 08/04/2025 11:00 AM EDT Office Visit [facility] [place] [address] [place] [address] Lily Dickinson MD [address] [place] [address] documented as of this encounter [...] documented as of this encounter Care Teams Crop Farm Helper Relationship Specialty Start Date End Date Jessica Man APRN [address] [place] [address] PCP - General 02/24/21 Mary Lim APRN [address] [place] [address] Referring Physician Gastroenterology 05/11/25 documented as of this encounter
--- OUTSIDE RECORDS SUMMARY | 2025-06-28 14:39 | XMS_ITS | Referral Summary ---
Author Organization [employer] ([place], [place], [place], [place]) Address [address] [place] [address] Care Team Providers Care Retanned Leather Roller Name Role Phone Unavailable Primary Care Provider [...] Plan of Treatment Not on file Insurance [facility]
--- OUTSIDE RECORDS SUMMARY | 2025-06-28 14:39 | XMS_ITS | Encounter Summary ---
Author Organization [employer] ([place], [place], [place], [place]) Address [address] [place] [address] Care Team Providers Care Accounts Payable Coordinator Name Role Phone Unavailable Primary Care Provider Unavailabl e Encounter Details Date Type Department Care Team (Late st Contact Info) Description 11/05/2018 Transcribed Document [facility] [place] [facility] [place] [address] ProviderHugh MD [address] [place] [address] Social History Tobacco Use Types [...] Conversion Note - Hugh ProviderMD - 11/05/2018 5:31 PM FLIGHT TECHNICIAN Nursing Discharge Summary Entered On: 11/05/2018 17:31 EST Performed On: 11/05/2018 17:31 EST by BARRY PEREIRA RN Discharge Documentation Discharge Date/Time : 11/05/2018 18:25 EST Patient Education Completed : Yes Work/school Release Given : Yes BARRY PEREIRA RN - 11/05/2018 18:32 EST Patient Disposition, General : Discharge Discharge To : Home with ambulatory/outpatient follow-up Mode Of Departure, General Discharge : Ambulatory Accompanied By, Discharge : Spouse IV Discontinued : Yes Medications Given to Patient : Yes Personal Belongings With Patient : Yes Prescriptions Given to Patient : No Discharge Instructions Reviewed With, Opportunity For Questions Given : Patient, Spouse Teaching Method : Explanation, Printed materials Teaching Evaluation : Returns demonstration, Verbalizes understanding Worker's Compensation Paperwork Completed : BARRY Dick RN - 11/05/2018 17:31 EST Electronically signed by [facility] Conversion Rod Mill Operator Cerner at 01/31/2023 5:45 PM CDT documented in this encounter Plan of Treatment Not on file documented as of this encounter Visit Diagnoses Not on filedocumented in this encounter
--- OUTSIDE RECORDS SUMMARY | 2025-06-28 14:39 | XMS_ITS | Clinical Summary ---
Author Organization [facility] Address [address] [place] [address] Care Team Providers Care Industrial Locomotive Operator Name Role Phone Jessica Man APRN Primary Care Provider [phone] Allergies Active Allergy Reactions Criticality Noted Date [...] for 1 day. 4 Active Continuous Glucose Sap Basis Architect (Dexcom G7 Sap Basis Architect) device USE TO MONITOR BLOOD SUGAR DIRECTED 4 Active Continuous Glucose Sensor (Dexcom G7 Sensor) [facility] USE TO MONITOR BLOOD SUGAR. REPLACE EVERY 10 DAYS 4 Active Continuous Glucose Transmitter (Dexcom G6 Transmitter) [facility] USU TO MEASURE BLOOD SUGAR DIRECTED. REPLACE [...] Needle Jazlyn U/F 32G X 4 MM [facility] USE TO INJECT INSULIN 4 TIMES EACH [...] false negative. Will order in lab [facility]. [place] 17. Preop cardiovascular exam 03/17/2024 Encounter for [...] 05/09/2021, 05/09/2021 DIABETIC FOOT EXAM 12/09/2024 12/09/2023 INFLUENZA VACCINE 05/14/2025 09/03/2023, , 07/13/2020, Additional history exists COVID-19 Vaccine (2 - 2024-2 6 season) 2025 09/23/2023 HEMOGLOBIN A1C 10/06/2025 04/06/2025, 03/1 , 09/21/2024, Additional history exists COLONOSCOPY 04/19/2029 04/19/2019 COLORECTAL CANCER SCREENING 04/19/2029 HEPATITIS C SCREENING Completed 06/01/2014 Insurance [place] [address] Care Teams Industrial Locomotive Operator Relationship Specialty Start Date End Date Jessica Man APRN [address] [place] [address] PCP - General Nurse Practitioner 03/17/24
--- OUTSIDE RECORDS SUMMARY | 2025-06-28 14:39 | XMS_ITS | Encounter Summary ---
Author Organization [facility] Address [address] [place] [address] Care Team Providers Care Editor Producer Name Role Phone Jessica Man CUTTER OPERATOR Primary Care Provider [phone] Mary Lim CUTTER OPERATOR Unavailable [phone] Reason for Visit * Reason Comments Referral - Liver Txp Encounter Details Date Type Department Care Team (Late st Contact Info) Description 05/17/2025 Telephone [facility] Transplant Center [address] [place] [address] Edda Méndez [place] [phone] Referral - Liver Txp Social History Tobacco [...] - 05/17/2025 9:56 AM EDT Called Ms Ewelina to get clarification on her insurance - spoke to Ms Theodore - her [employer] termed unexpectedly and she does not understand why. She has an appointment this afternoon with [facility] to try to resolve this problem. [...] Description 07/02/2025 12:20 PM EDT Office Visit [facility] Medicine Specialties [address] [place] [address] Kira Ramirez, CUTTER OPERATOR [address] [facility] [address] [place] [address] 07/22/2025 3:40 PM EDT Office Visit [facility] Endocrinology [address] [place] [address] Silvia Lewis, CUTTER OPERATOR [address] [facility] [address] [place] [address] 08/04/2025 9:30 AM EDT Clinical Support [facility] Transplant Center [address] [facility] [address] [place] [address] 08/04/2025 11:00 AM EDT Office Visit [facility] [place] [address] [facility] [address] [place] [address] Lily Dickinson MD [address] [facility] [address] [place] [address] documented as of this encounter Visit Diagnoses [...] documented as of this encounter Care Teams Editor Producer Relationship Specialty Start Date End Date Jessica Man APRN [address] [place], [place] [phone] PCP - General 02/24/21 Mary Lim APRN [address] [place] [address] Referring Physician Gastroenterology 05/11/25 documented as of this encounter
--- OUTSIDE RECORDS SUMMARY | 2025-06-28 14:39 | XMS_ITS | Encounter Summary ---
Author Organization [facility] Address [address] [place] [address] Care Team Providers Care French Lecturer Name Role Phone Jessica Man COMPLIANCE DIRECTOR Primary Care Provider [phone] Mary Lim COMPLIANCE DIRECTOR Unavailable [phone] Encounter Details Date Type Department Care Team (Late st Contact Info) Description 06/16/2025 Telephone [facility] [address] 1[address] [place] [address] [facility], Physician, [address] [place] [address] Social History Tobacco Use Types Packs/Day Years [...] 07/02/2025 12:20 PM EDT Office Visit [facility] Medicine Specialties [address] [place] [address] Kira Ramirez, COMPLIANCE DIRECTOR [address] [place] [address] 07/22/2025 3:40 PM EDT Office Visit [facility] Endocrinology [address] [place] [address] Silvia Lewis, COMPLIANCE DIRECTOR [address] [place] [address] 08/04/2025 9:30 AM EDT Clinical Support [facility] Transplant Center [address] [place] [address] 08/04/2025 11:00 AM EDT Office Visit [facility] Transplant Center [address] [place] [address] Lily Dickinson MD [address] [place] [address] documented as of this encounter [...] documented as of this encounter Care Teams French Lecturer Relationship Specialty Start Date End Date Jessica Man, COMPLIANCE DIRECTOR [address] [place] [address] PCP - General 02/24/21 Mary Lim, COMPLIANCE DIRECTOR [address] [place] [address] Referring Physician Gastroenterology 05/11/25 documented as of this encounter
--- OUTSIDE RECORDS SUMMARY | 2025-06-28 14:39 | XMS_ITS | Encounter Summary ---
Author Organization [facility] Address [address] [place] [address] Care Team Providers Care K [employer] School Professional Name Role Phone Jessica Man ROUGHING MILL OPERATOR Primary Care Provider [phone] Mary Lim ROUGHING MILL OPERATOR Unavailable [phone] Reason for Visit * Reason Comments Appointment Confirmation and rem inders Encounter Details Date Type Department Care Team (Late st Contact Info) Description 06/23/2025 Telephone [facility] Transplant Center [address] [place] [address] Edda Méndez [place] [phone] Appointment (Confirmation and reminders) Social History Tobacco Use Types Packs/Day Years [...] * Telephone Encounter - Edda Méndez - 06/23/2025 9:58 AM EDT Called to confirm New Patient Pre-Liver Initial Clinic Evaluation scheduled for Saturday06/25/2025 at 7:15am. Called Ms Seth - no answer, left voicemail message with contact information, requested a return call to either confirm or reschedule as needed. Provided alternate contact for Edward Douglas ([phone]). documented in this encounter Plan of Treatment Upcoming Encounters Date Type Department Care Team (Late st Contact Info) Description 07/02/2025 12:20 PM EDT Office Visit [facility] Medicine Specialties [address] [place] [address] Kira Ramirez D, ROUGHING MILL OPERATOR [address] [facility] [address] [place] [address] 07/22/2025 3:40 PM EDT Office Visit [facility] Endocrinology [address] [place] [address] Silvia Lewis S, ROUGHING MILL OPERATOR [address] [facility] [address] [place] [address] 08/04/2025 9:30 AM EDT Clinical Support [facility] Transplant Center [address] [facility] [address] [place] [address] 08/04/2025 11:00 AM EDT Office Visit [facility] Transplant [place] [address] [facility] [address] [place] [address] Lily Dickinson MD [address] [email or web address] [address] [place] [address] documented as of this encounter Visit Diagnoses [...] documented as of this encounter Care Teams K 12 School Professional Relationship Specialty Start Date End Date Jessica Man APRN [address] [place] [address] PCP - General 02/24/21 Mary Lim APRN [address] [place] [address] Referring Physician Gastroenterology 05/11/25 documented as of this encounter
--- OUTSIDE RECORDS SUMMARY | 2025-06-28 14:39 | XMS_ITS | Encounter Summary ---
Author Organization [facility] Address [address] [place] [address] Care Team Providers Care Animal Tech Name Role Phone Jessica Man MANAGER BASKETBALL Primary Care Provider [phone] Mary Lim MANAGER BASKETBALL Unavailable [phone] Encounter Details Date Type Department Care Team (Latest Contact Info) Description 06/25/2025 Travel Social History Tobacco Use Types Packs/Day [...] PM EDT documented as of this encounter Functional Status * Over the [...] Lowe RN documented as of this encounter Plan of Treatment Upcoming Encounters Date Type Department Care Team (Late st Contact Info) Description 07/02/2025 12:20 PM EDT Office Visit [facility] Medicine Specialties [address] [place] [address] Kira Ramirez, MANAGER BASKETBALL [address] [place] [address] 07/22/2025 3:40 PM EDT Office Visit [facility] Endocrinology [address] [place] [address] Silvia Lewis, MANAGER BASKETBALL [address] [place] [address] 08/04/2025 9:30 AM EDT Clinical Support [facility] Transplant Center [address] [place] [address] 08/04/2025 11:00 AM EDT Office Visit [facility] Transplant [place] [address] [place] [address] Lily Dickinson MD [address] [place] [address] documented as of this encounter [...] documented as of this encounter Care Teams Animal Tech Relationship Specialty Start Date End Date Jessica Man APRN [facility]0 [place] [phone] PCP - General 02/24/21 Mary Lim APRN [address] [employer], [place] [phone] Referring Physician Gastroenterology 05/11/25 documented as of this encounter
--- OUTSIDE RECORDS SUMMARY | 2025-06-28 14:39 | XMS_ITS | Clinical Summary ---
Author Organization [facility] Address [address] [place] [address] Care Team Providers Care Civil Division Deputy Sheriff Name Role Phone Jessica Man PARTS COUNTER ASSOCIATE Primary Care Provider [phone] Mary Lim PARTS COUNTER ASSOCIATE Unavailable [phone] Allergies Active Allergy Reactions Criticality Noted Date Comments Varenicline Hives Medium 12/05/2022 Erythorbic Acid Swelling High 09/17/2018 throat Erythromycin Nausea And Vomiting, Unknown - Patient states they do not know rxn details Low 06/01/2014 Empagliflozin Hives Medium 12/05/2022 Metformin Diarrhea,Other - ple ase document in the comment field Low 12/05/2022 Vomiting Medications cyclobenzaprine (Flexeril) 10 MG tablet 11/14/19 23 Active diazePAM (Valium) 5 MG tablet 09/25/20 22 Active DULoxetine (Cymbalta) [address] capsule Take 2 capsules by mouth daily. 11/14/19 23 Active fenofibrate (Tricor) 145 MG tablet Take 1 tablet by mouth daily. 11/14/19 23 Active gabapentin (Neurontin) 800 MG tablet Take 0.5 tablets by mouth as needed. 11/19/19 23 Active hydrOXYzine HCl (Atarax) 25 MG tablet Take 1 tablet by mouth daily. 11/14/19 23 Active lamoTRIgine (LaMICtal) 150 MG tablet 11/29/19 23 Active Linzess 290 MCG capsule Take 1 capsule by mouth as needed. 11/29/19 23 Active nitroglycerin (Nitrostat) 0.4 MG SL tablet 05/21/20 22 Active omeprazole (PriLOSEC) [address] capsule Take 1 capsule by mouth daily. 11/19/19 Active rosuvastatin (Crestor) 20 MG tablet Take 1 tablet by mouth every morning. Active traZODone (Desyrel) 50 MG tablet 11/14/19 Active glucagon (Baqsimi Two Pack) 3 MG/DOSE powder Nasal Powder Administer 3 mg into affected nostril(s) 1 (one) time if needed (severe hypoglycemia). 2 each 3 09/21/20 24 025 Active famotidine (Pepcid) 40 MG tablet take 1 tablet 1 time each day at bedtime 03/31/20 25 Active OneTouch Ultra Test test strip USE TO CHECK BLOOD SUGAR 4 TIMES EACH DAY 03/31/20 25 Active rOPINIRole (Requip) 1 MG tablet Take 2 tablets by mouth nightly. Active Insulin Pen Needle (BD Pen Needle Jazlyn U/F) 32G X 4 MM misc 4x/day as directed 360 each 3 04/06/20 Active insulin glargine-yfgn (Semglee) 100 UNIT/ML injection pen Inject subcutaneous 30 units in PM plus titration as advised, max dose 50u/day 45 mL 3 06/04/20 Active Additional Information Patient taking differently: 34 Units Subcutaneous Nightly, Inject subcutaneous 30 units in PM plus titration as advised, max dose 50u/day, Reported on 06/25/2025 NovoLOG FLEXPEN 100 UNIT/ML injection pen Inject 12 units before meals plus correction 1:30>150. MDD: 60 units. 55 mL 3 06/04/20 Active Continuous Glucose Sensor (FreeStyle Madan 3 Plus Sensor) miscIndications :Type 2 diabetes mellitus with hyperglycemia, without long-term current use of insulin ([facility]) 1 sensor every 15 days. 2 each 5 06/10/20 Active Additional Information Patient not taking.Reason: insurance problems, Reported on 06/25/2025 Continuous Glucose Associate Business Analyst (FreeStyle Madan 3 [place]) deviceIndicatio ns:Type 2 diabetes mellitus with hyperglycemia, without long-term current use of insulin (CMS/HCC) 1 Device 6 times a day. Use to check blood glucose regularly 1 each 06/10/20 Active Additional Information Patient not taking.Reason: insurance problems, Reported on 06/25/2025 Nicotine Step 2 14 MG/24HR patch Place 1 patch on the skin 1 (one) time each day at the same time. 03/31/20 25 Active lactulose (Enulose) 10 GM/15ML solution oral solution Take 15 mL by mouth as needed. 05/11/20 25 Active bisacodyl (Dulcolax) 10 MG suppository Insert 1 suppository into the rectum 1 time as needed for constipation. 02/03/20 25 Active bumetanide (Bumex) 0.5 MG tablet Take 3 tablets by mouth daily. 90 tablet 2 06/25/20 25 025 Active spironolactone (Aldactone) 100 MG tablet Take 1 tablet by mouth daily. 30 each 06/25/20 25 025 Active hydrOXYzine HCl (Atarax) 10 MG tablet Take 1 tablet by mouth 2 times a day. 60 tablet 3 06/28/20 25 Active ibuprofen 800 MG tablet 09/18/20 22 025 Discontin ued(Cost of medicatio n) Continuous Glucose Sensor (Dexcom G7 Sensor) [facility] 1 each every 10 (ten) days. 9 each 3 09/21/20 24 025 Discontin ued(Formu owen change) furosemide (Lasix) 40 MG tablet Take 2 tablets by mouth daily. 025 Discontin ued(Cost of medicatio n) spironolactone (Aldactone) 50 MG tablet Take 1 tablet by mouth daily. 025 Discontin ued(Cost of medicatio n) insulin glargine (Lantus SoloStar, Basaglar) 100 UNIT/ML injection pen Inject subcutaneous 30 units in PM plus titration as advised, max dose 50u/day 30 mL 3 04/06/20 25 025 Discontin ued(Formu owen change) insulin lispro (Admelog, HumaLOG) 100 UNIT/ML injection pen Instructed to inject 12 units before meals plus correction 1:30>150. MDD: 60 units. 55 mL 3 04/06/20 25 025 Discontin ued(Formu owen change) hydroCHLOROthia zide (Microzide) 12.5 MG capsule Take 1 capsule by mouth every morning. 03/02/20 25 025 Discontin ued(Cost of medicatio n) Active Problems Problem Noted Date Diagnosed Date [...] Encounters Date Type Department Care Team Description 06/28/2025 Telephone [facility] [address] [phone] Jaci Duenas, RN 06/28/2025 Orders Only [facility] [address] [phone] Jaci Duenas, RN 06/25/2025 9:00 AM EDT Office Visit [facility] [address] [phone] Orlando Fierro MD End-stage liver disease (CMS/HCC) (Primary Dx); Decompensated hepatic cirrhosis (CMS/HCC); Other ascites; Metabolic dysfunction-associated steatotic liver disease (MASLD); Alpha 1-antitrypsin PiMS phenotype; Tobacco abuse 06/25/2025 Travel 06/24/2025 Travel 06/23/2025 Travel 06/23/2025 Telephone [facility] [address] [phone] Edda Méndez 06/23/2025 Telephone [facility] [address] [phone] Edda Méndez Appointment (Confirmation and reminders) 06/16/2025 Telephone [facility] [address] [place] [address] Rajurology, Physician, 06/09/2025 Telephone [facility] [address] [place] [address] Silvia Lewis, NGUYỄN Prior-authorization/in surance Verification 06/04/2025 Refill [facility] [address] [place] [address] Jessica Aranda 06/04/2025 Telephone [facility] [address] [place] [address] Silvia Lewis APRN 06/02/2025 Telephone [facility] [address] [place] [address] Silvia Lewis, PARTS COUNTER ASSOCIATE Prior-authorization/in surance Verification 06/01/2025 Telephone [facility] [address] [phone] Edda Méndez 05/26/2025 Telephone [facility] [address] [phone] Edda Méndez Appointment (Scheduling) 05/25/2025 Orders Only External Location [address] [place] [address] Provider, External 05/24/2025 Telephone [facility] [address] [place] [phone] Edda Méndez 05/17/2025 Telephone [facility] [address] [place] [phone] Edda Méndez Referral - Liver Txp 05/11/2025 Telephone [facility] [address] [address] Edda Méndez Referral - Liver Txp 04/06/2025 1:40 PM EDT Office Visit [facility] [address] [place] [phone] Silvia Lewis, NGUYỄN Type 2 diabetes mellitus with hyperglycemia, without long-term current use of insulin (CMS/HCC) (Primary Dx); Hyperlipidemia, unspecified hyperlipidemia type; Neuropathy [...] Mass Index 31.11 06/25/2025 7:17 AM EDT Plan of Treatment Upcoming Encounters Date Type Department Care Team (Late st Contact Info) Description 07/02/2025 12:20 PM EDT Office Visit [facility] [address] [place] [address] Kira Ramirez, PARTS COUNTER ASSOCIATE [address] [facility] [address] [place] [address] 07/22/2025 3:40 PM EDT Office Visit [facility] [address] [place] [phone] Silvia Lewis S, PARTS COUNTER ASSOCIATE [address] [facility] [address] [place] [phone] 08/04/2025 9:30 AM EDT Clinical Support [facility] [address] [facility] [address] [place] [address] 08/04/2025 11:00 AM EDT Office Visit [facility] [address] [facility] [address] [place] [address] Lily Dickinson MD [address] [place] [address] Health Maintenance Due Date Last Done Comments [...] 02/16/2020 [facility]-Zoster Vaccines (1 of 2) 02/16/2020 [id number] Vaccine (2 - 2024- season) 2025 09/23/2023 [facility]-Influenza Vaccine (#1) 06/14/202507/14, 09/03/2023, 09/19/2022, Additional history exists [facility]-Diabetes: Hemoglobin A1C 10/04/2025, 12/21/2024, 09/21/2024, Additional history exists [facility]-Depression Screening 06/25/2026 06/25/2025, 06/14 [facility]-HIV Screening Completed 06/01/2014 [facility]-Hepatitis A Vaccines Completed 06/30/2019, 09/14 [facility]-Hepatitis C Screening Completed 06/25/2025, [facility]-Obesity Intervention Completed 025, 04/06/2025, 12/21/2024, Additional history exists HPV Vaccines Aged Out [...] Procedure Name Priority Date/Time Associated Diagnosis Comments ALCOHOL, URINE Routine 06/25/2025 7:32 AM EDT End-stage liver disease (CMS/HCC) ABO/RH Routine 06/25/2025 7:08 AM EDT End-stage liver disease (CMS/HCC) ALPHA FETOPROTEIN, SERUM Routine 06/25/2025 7:08 AM EDT End-stage liver disease (CMS/HCC) CBC W/O DIFFERENTIAL Routine 06/25/2025 7:08 AM EDT End-stage liver disease (CMS/HCC) COMPREHENSIVE METABOLIC PANEL, PLASMA Routine 06/25/2025 7:08 AM EDT End-stage liver disease (CMS/HCC) PROTHROMBIN TIME(PT) / INR Routine 06/25/2025 7:08 AM EDT End-stage liver disease (CMS/HCC) HEPATITIS C ANTIBODY W/REFLEX TO HCV QUANT PCR Routine 06/25/2025 7:08 AM EDT End-stage liver disease (CMS/HCC) HEPATITIS B SURFACE ANTIGEN Routine 06/25/2025 7:08 AM EDT End-stage liver disease (CMS/HCC) HEPATITIS B SURFACE ANTIBODY, QUANTITATIVE Routine 06/25/2025 7:08 AM EDT End-stage liver disease (CMS/HCC) HEPATITIS A ANTIBODY IGG Routine 06/25/2025 7:08 AM EDT End-stage liver disease (CMS/HCC) XR OUTSIDE IMAGES 05/25/2025 3:5 7 PM EDT POCT GLYCOSYLATED HEMOGLOBIN (HGB A1C) Routine 04/06/2025 2:04 PM EDT Type 2 diabetes mellitus with hyperglycemia, without long-term current use of insulin (CMS/HCC) HIV 1/2 ANTIBODY/ANTIGEN SCREEN WITH REFLEX TO HIV I/II DIFFERENTIATION Routine 06/01/2014 4:27 PM EDT from Last 3 Months or Most Recently Relevant to Health Maintenance Results * Alcohol Urine (06/25/2025 7:32 AM EDT) Alcohol Urine Negative Negative 06/25/2025 11:46 AM EDT [facility] Urine Urine specimen obtained by clean catch procedure / Unknown Non-blood Collection / Unknown 06/25/2025 7:32 AM EDT 06/25/2025 8:34 AM EDT Narrative [facility] - 06/25/2025 11:46 AM EDT The correlation between urine and serum ethanol concentration is highly variable. Test performed by Gas Chromatography at the [facility]. This test was developed and its performance characteristics determined by [facility]. It has not been cleared or approved by the FDA.The laboratory is regulated under CLIA as qualified to perform high-complexity testing. This test is used for clinical purposes only. Donnie Jordan MD LAB URINE ORDERABLES Final Resul t Performing Organization Address [facility] Co de Phone Number [facility] [address] [place] [address] * HEPATITIS B SURFACE ANTIBODY, QUANTITATIVE (06/25/2025 7:08 AM EDT) Pathologist [facility] Hepatitis B Surface Antibody, Quantitative <8.00 NonReactiv e: <8, Grayzone: 8 - <12, Reactive: >= 12 mIU/mL 06/25/2025 9:15 AM EDT [facility] Comment: Nonreactive. Individual is considered not immune to HBV infection. Blood Venous blood specimen / Unknown Venipuncture / Unknown 06/25/2025 7:08 AM EDT 06/25/2025 7:47 AM EDT Donnie Jordan MD LAB BLOOD ORDERABLES Final Resul t Performing Organization Address City/[facility]/ZIP Co de Phone Number [facility] [address] [place] [address] * Alpha fetoprotein, serum (06/25/2025 7:08 AM EDT) Alpha Fetoprotein, Serum <2.3 <10.0 ng/mL 06/25/2025 8:23 AM EDT [facility] Blood Venous blood specimen / Unknown Venipuncture / Unknown 06/25/2025 7:08 AM EDT 06/25/2025 7:47 AM EDT Narrative [facility] - 06/25/2025 8:23 AM EDT Performed by José Manuel electrochemiluminescent immunoassay which is traceable to the 1st [facility] IRP WHO Reference standard 72/255. Results obtained with different test methods or kits cannot be used interchangeably. us Donnie Jordan MD LAB BLOOD ORDERABLES Final Resul t Performing Organization Address City/[facility] [place] [address] * (ABNORMAL) Hepatitis A Antibody IgG (06/25/2025 7:08 AM EDT) Hepatitis A Antibody IgG Positive(A ) Negative 06/25/2025 9:15 AM EDT [facility] Blood Venous blood specimen / Unknown Venipuncture / Unknown 06/25/2025 7:08 AM EDT 06/25/2025 7:47 AM EDT us Donnie Jordan MD LAB BLOOD ORDERABLES Final Resul t Performing Organization Address [facility] [place] [address] * Hepatitis C Antibody (06/25/2025 7:08 AM EDT) Hepatitis C Antibody Negative Negative 06/25/2025 8:31 AM EDT [facility] Blood Venous blood specimen / Unknown Venipuncture / Unknown 06/25/2025 7:08 AM EDT 06/25/2025 7:47 AM EDT us Donnie Jordan MD LAB BLOOD ORDERABLES Final Resul t Performing Organization Address [facility] [place] [address] * ABO/Rh (06/25/2025 7:08 AM EDT) ABO/Rh O Positive 06/25/2025 7:04 AM EDT [facility] Blood Venous blood specimen / Unknown Venipuncture / Unknown 06/25/2025 7:08 AM EDT 06/25/2025 7:45 AM EDT us Donnie Jordan MD LAB BLOOD BANK TEST ORDERABLES F inal Result Performing Organization Address City/[facility]/ZIP Co de Phone Number BLOOD BANK [address] [place] [address], * Hepatitis B Surface Antigen (06/25/2025 7:08 AM EDT) Pathologist [facility] Hepatitis B Surf Antigen Negative Negative 06/25/2025 9:15 AM EDT [facility] Blood Venous blood specimen / Unknown Venipuncture / Unknown 06/25/2025 7:08 AM EDT 06/25/2025 7:47 AM EDT Donnie Jordan MD LAB BLOOD ORDERABLES Final Resul t Performing Organization Address City/[facility]/ZIP Co de Phone Number [facility] [address] [place] [address] * (ABNORMAL) Protime-INR (06/25/2025 7:08 AM EDT) Pathologist [facility] Prothrombin Time 17.0(H) 12.0 - 14.3 sec LAB COAGULATION METHOD 06/25/2025 8:07 AM EDT [facility] INR 1.3(H) 0.9 - 1.1 LAB COAGULATION METHOD 06/25/2025 8:07 AM EDT [facility] Blood Venous blood specimen / Unknown Venipuncture / Unknown 06/25/2025 7:08 AM EDT 06/25/2025 7:47 AM EDT Narrative [facility] - 06/25/2025 8:07 AM EDT OPTIMAL INR RANGES FOR PATIENT ON ORAL ANTICOAGULANT THERAPY Prevention of venous thromboembolism INR 2.0 to 3.0 In patients with heart disease: Atrial fibrillation INR 2.0 to 3.0 Valvular heart disease INR 2.0 to 3.0 Tissue heart valves INR 2.0 to 3.0 Mechanical prosthetic valves INR 2.5 to 3.5 Prevention of recurrent PA INR 2.5 to 3.5 us Donnie Jordan MD LAB BLOOD ORDERABLES Final Resul t [facility] [address] [place] [address] * (ABNORMAL) Hemogram (CBC) (06/25/2025 7:08 AM EDT) WBC Count 10.55(H) 3.70 - 10.30 10*3/uL LAB HEMATOLOGY METHOD 06/25/2025 8:04 AM EDT [facility] RBC Count 3.34(L) 3.90 - 5.20 10*6/uL LAB HEMATOLOGY METHOD 06/25/2025 8:04 AM EDT [facility] HGB 9.2(L) 11.2 - 15.7 g/dL LAB HEMATOLOGY METHOD 06/25/2025 8:04 AM EDT [facility] HCT 27.9(L) 34.0 - 45.0 % LAB HEMATOLOGY METHOD 06/25/2025 8:04 AM EDT [facility] Platelet Count 173 155 - 369 10*3/uL LAB HEMATOLOGY METHOD 06/25/2025 8:04 AM EDT [facility] MCV 84 79 - 98 fL LAB HEMATOLOGY METHOD 06/25/2025 8:04 AM EDT [facility] MCH 27.5 26.0 - 32.0 pg LAB HEMATOLOGY METHOD 06/25/2025 8:04 AM EDT [facility] MCHC 33.0 30.7 - 35.5 g/dL LAB HEMATOLOGY METHOD 06/25/2025 8:04 AM EDT [facility] RDW 17.8(H) 11.5 - 14.5 % LAB HEMATOLOGY METHOD 06/25/2025 8:04 AM EDT [facility] MPV 9.6 8.8 - 12.5 fL LAB HEMATOLOGY METHOD 06/25/2025 8:04 AM EDT [facility] nRBC 0.0 <=0.0 per 100 WBCs LAB HEMATOLOGY METHOD 06/25/2025 8:04 AM EDT [facility] Blood Venous blood specimen / Unknown Venipuncture / Unknown 06/25/2025 7:08 AM EDT 06/25/2025 7:54 AM EDT us Donnie Jordan MD LAB BLOOD ORDERABLES Final Resul t [facility] [address] [place] [address] * (ABNORMAL) Comprehensive metabolic panel (06/25/2025 7:08 AM EDT) Glucose, Plasma 50(LL) 74 - 99 mg/dL 06/25/2025 8:22 AM EDT [facility] BUN, Plasma 33(H) 7 - 21 mg/dL 06/25/2025 8:22 AM EDT [facility] Creatinine, Plasma 1.30(H) 0.60 - 1.10 mg/dL 06/25/2025 8:22 AM EDT [facility] BUN/Creatinine Ratio 25 06/25/2025 8:22 AM EDT [facility] Sodium, Plasma 134(L) 136 - 145 mmol/L 06/25/2025 8:22 AM EDT [facility] Potassium, Plasma 3.6 3.6 - 4.9 mmol/L 06/25/2025 8:22 AM EDT [facility] Chloride, Plasma 101 97 - 107 mmol/L 06/25/2025 8:22 AM EDT [facility] CO2, Plasma 22 22 - 29 mmol/L 06/25/2025 8:22 AM EDT [facility] Anion Gap 11 6 - 16 mmol/L 06/25/2025 8:22 AM EDT [facility] Total Calcium, Plasma 8.8(L) 8.9 - 10.2 mg/dL 06/25/2025 8:22 AM EDT [facility] Total Protein 6.8 6.3 - 7.9 g/dL 06/25/2025 8:22 AM EDT [facility] Albumin, Plasma 3.2(L) 3.5 - 5.2 g/dL 06/25/2025 8:22 AM EDT [facility] AST, Plasma 76(H) 10 - 35 U/L 06/25/2025 8:22 AM EDT [facility] ALT, Plasma 30 10 - 35 U/L 06/25/2025 8:22 AM EDT [facility] Alkaline Phosphatase, Plasma 158(H) 35 - 104 U/L 06/25/2025 8:22 AM EDT [facility] Total Bilirubin, Plasma 2.1(H) 0.2 - 1.1 mg/dL 06/25/2025 8:22 AM EDT [facility] eGFRcr 48.7 mL/min/1.7 3m*2 06/25/2025 8:22 AM EDT [facility] Comment:Reported eGFRcr in m L/min/1.73m2 is based the CKD-EPI 2020 equation that does not use a race coefficient. Blood Venous blood specimen / Unknown Venipuncture / Unknown 06/25/2025 7:08 AM EDT 06/25/2025 7:47 AM EDT us Donnie Jordan MD LAB BLOOD ORDERABLES Final Resul t [facility] [address] [place] [address] * XR OUTSIDE IMAGES (05/25/2025 3:57 PM EDT) Anatomical Region Laterality Modality Radiographic Gauri ging 05/25/2025 3:57 PM EDT us External Provider IMG XR PROCEDURES Final Result * POCT glycosylated hemoglobin (Hb A1C) (04/06/2025 2:04 PM EDT) POCT Hemoglobin A1C 5.1 <5.7% Non-Diabe tic % [facility] Kit Lot Number [id number] [facility] Kit Expiration Date 01/11/2027 [facility] Blood Venous blood specimen / Unknown 04/06/2025 2:04 PM EDT Silvia Lewis APRN POINT OF CARE TEST ENTER/ED IT ORDERABLES Final Result [facility] [address] [place] [address] * HIV 1 & 2 Antibody/Antigen Screen (06/01/2014 4:27 PM EDT) HIV 1 Result NONREACTIVE Screening for HIV 1 and 2 antibodies is NONREACTIVE. No confirmatory testing is required. SUNQUEST 06/01/2014 4:27 PM EDT 06/01/2014 5:40 PM EDT us Historical Provider LAB BLOOD ORDERABLES Final R esult SUNQUEST from Last 3 Months or Most Recently Relevant to Health Maintenance Insurance Care Teams Civil Division Deputy Sheriff Relationship Specialty Start Date End Date Jessica Man APRN [address] [place] [address] PCP - General 02/24/21 Mary Lim APRN [address] [place] [id number] Referring Physician Gastroenterology 05/11/25
--- OUTSIDE RECORDS SUMMARY | 2025-06-28 14:39 | XMS_ITS | Encounter Summary ---
Author Organization [employer] ([place], [place], [place], [place]) Address [address] [place] [address] Care Team Providers Care Clinical Data Abstractor Name Role Phone Unavailable Primary Care Provider Unavailabl e Encounter Details Date Type Department Care Team (Late st Contact Info) Description 11/05/2018 Transcribed Document [facility] [place] [address] [place] [address] ProviderHugh MD [address] [place], [place] [id number] Social History Tobacco Use Types Packs/Day Years [...] Conversion Note - Hugh ProviderMD - 11/05/2018 12:55 PM DISTANCE LEARNING COORDINATOR Pre Procedure Adult Entered On: 11/05/2018 13:02 EST Performed On: 11/05/2018 12:55 EST by BARRY PEREIRA RN Height and Weight, Clinical Dosing Height Source : Stated Height Entry Format : [place] Height, Feet : 5 ft(Converted to: 152 cm, 60 Inch) Height, Inches : 8 Inch(Converted to: 0 ft 8 Inch, 20.32 cm) Clinical Height : 172.72 cm Weight Source : Standing scale Weight Entry Format : [place] Clinical Dosing Weight : 86.82 kg Weight, Pounds : 191 lb Body Surface Area (BSA) : 2.01 m2 Body Mass Index : 29.1 kg/m2 (HI) [place] Body Weight : 63 kg BARRY PEREIRA RN - 11/05/2018 12:55 EST Health Histories Smoking Status : 10 or more cigarettes (1/2 pack or more)/day in last 30 days Smokeless Tobacco Status : Never Desires Tobacco Cessation Medication : No Reason for No Tobacco Cessation Medication : Refuses FDA approved medications BARRY PEREIRA RN - 11/05/2018 12:55 EST Social History (As Of: 11/05/2018 13:02:46 EST) Tobacco: 10 or more cigarettes (1/2 pack or more)/day in last 30 days Smoking Status. Years of Use: 35. Packs/Tins Daily: 0.5. (Last Updated: 11/05/2018 12:55:53 EST by BARRY PEREIRA RN) Alcohol: Alcohol Use History No. (Last Updated: 11/05/2018 12:55:58 EST by BARRY PEREIRA RN) Substance Abuse: Drug Use Hx: No. (Last Updated: 11/05/2018 13:02:41 EST by BARRY PEREIRA RN) Infectious Disease History Infectious Disease History : Chicken pox/Shingles, Influenza Fever/Chills Last 48 Hours : No Travel To Regions with Travel Advisories : No Travel Outside [place].S. Within Last 30 Days : No Contact With Traveler to Advisory Region : No Tuberculosis Symptoms : None BARRY PEREIRA RN - 11/05/2018 12:55 EST Anesthesia/Transfusion History Family History of Anesthesia Reaction : No prior transfusion(s) Blood Transfusion Acceptable to Patient : Yes Transfusion History : Prior anesthesia without reaction Family History of Anesthesia Reaction : None BARRY PEREIRA RN - 11/05/2018 12:55 EST Functional Assessment Living Situation : Home Patient Lives With : Other: fiance Persons Assisting Patient at Home : Other: fiance Current Daily Living Assistance : None Mobility Assistance Prior to Admission : Partial assistance Current Home Treatments : Blood glucose monitoring, CPAP Home Equipment : Cane Cane : Cane, single point BARRY PEREIRA RN - 11/05/2018 12:55 EST Psychosocial History Does Someone Depend on You for Care? : No Do You Have a History of the Following? : Anxiety, Bipolar Disorder, Depression, Post Traumatic Stress Disorder, Other: panic disorder Currently in Unsafe Situation : No Restraining Order Against Another Person : No Tried to Harm Yourself in the Past? : No Thoughts of Harming/Killing Yourself : No BARRY PEREIRA RN - 11/05/2018 12:55 EST Advance Directive Patient has Advance Directive *Q : No, patient refuses Advance Directive information BARRY PEREIRA RN - 11/05/2018 12:55 EST Spiritual/Cultural Needs Significant Loss/Crisis in Past 3 Years : No Any Spiritual/Cultural Needs or Requests : Yes BARRY PEREIRA RN - 11/05/2018 12:55 EST Teaching/Learning Assessment Barriers To Learning : None evident Individuals Taught : Patient BARRY PEREIRA RN - 11/05/2018 12:55 EST Education Topics, Periop Preadmission Perioperative Education Grid IV's : Verbalizes understanding NPO Status/Directions : Verbalizes understanding Responsible Adult : Verbalizes understanding BARRY PEREIRA RN - 11/05/2018 12:55 EST General Info Arrived From : Home Mode of Arrival on Unit : Ambulatory Legal Guardian : Other: fiance Want Family/Rep/Phys Notified of Admit : No Emergency Contact #1 : [place] Emergency Contact #1 Emergency Contact #1 Relationship : [place] Emergency Contact #2 : none Emergency Contact #2 Phone Number : none Emergency Contact #2 Relationship : none Chief Complaint : Here for cardiac cath Information Obtained From : Patient Primary Language : Icelandic Preferred Communication Mode : Verbal Communication Barrier : None Objects to Sharing Info w Family : No BARRY PEREIRA RN - 11/05/2018 12:55 EST Vital Measurements Temperature Source : Temporal artery scanning Temperature Mode : Fahrenheit Temperature, Fahrenheit : 97.9 Deg F Clinical Temperature, C : 36.6 Deg C Pulse Method : Non-Invasive BP Device Peripheral Pulse Rate : 73 bpm Respiratory Rate : 12 Breaths/Min (LOW) Blood Pressure Location : Arm, right upper Blood Pressure Source : Non-Invasive BP Device Systolic Blood Pressure : 110 mmHg Diastolic Blood Pressure : 67 mmHg Oxygen Saturation : 96 % BARRY PEREIRA RN - 11/05/2018 12:55 EST Sleep Apnea Risk Assmt Hx of Obstructive Sleep Apnea Diagnosis : Yes BiPAP/CPAP Ordered for Home Use : Yes BiPAP/CPAP Used at Home : No Reason BiPAP/CPAP Not Used at Home : cant sleep with it on BiPAP/CPAP Home Settings : n/a Home BiPAP/CPAP Device With Patient : No BARRY PEREIRA RN - 11/05/2018 12:55 EST Nba Scale Nba Sensory Perception : No impairment Nba Moisture : Occasionally moist Nba Activity : Walks frequently Nba Mobility : Slightly limited Nba Nutrition : Adequate Nba Friction and Shear : Potential problem Nba Score : 19 BARRY PEREIRA RN - 11/05/2018 12:55 EST Oxygen Therapy Oxygen Therapy Mode : Room air BARRY PEREIRA RN - 11/05/2018 12:55 EST Pain Assessment Pain Assessment : Initial assessment Pain Scale Used : 0-10 Scale Location : Back Pain Location Comment : chronic back pain BARRY PEREIRA RN - 11/05/2018 12:55 EST Fall Risk Scales ABCs Fall Injury Risk Identification : Coagulation ABC Fall Injury Risk : Moderate to high injury risk V[place] Hx Falls Immediate/Within 3 Months : No [place] Secondary Diagnosis : No [place] Use of Ambulatory Aid : Crutches/Cane/Walker [place] IV Therapy or IV Access : Yes Latanya Gait/Transferring : Normal, bedrest, immobile [place]la Mental Status : Oriented to own ability [place] Fall Risk Score : 35 [place] Fall Scale Risk Level : 25-45 Medium Risk [place] Fall Interventions : Adequate lighting, Bed in low position, Frequent orientation to surroundings, Personal items within reach, Room free of clutter/spills, Upper side-rails up, Wheels locked, Wires/Cords secured BARRY PEREIRA RN - 11/05/2018 12:55 EST Valuables and Belongings Valuables and Belongings : Clothing, Jewelry, Personal devices, No personal devices, No personal items, No assistive devices, No respiratory devices, No medications Clothing : Common streetwear Clothing Disposition : Bedside Personal Device Disposition : With patient Jewelry : Ring Jewelry Disposition : With patient Personal Devices : Dentures, upper, Glasses BARRY PEREIRA RN - 11/05/2018 12:55 EST Pain Scale Intensity : 7 BARRY PEREIRA RN - 11/05/2018 12:55 EST Image 4 - Images currently included in the form version of this document have not been included in the text rendition version of the form. Sonya Coma Sonya Best Motor Response : Obey commands Sonya Best Verbal Response : Oriented Sonya Eye Opening Response : Spontaneous Sonya Coma Score : 15 BARRY PEREIRA RN - 11/05/2018 12:55 EST Electronically signed by [facility], [facility] Conversion Bottle Assembler Cerner at 01/31/2023 5:38 PM CDT documented in this encounter Plan of Treatment Not on file documented as of this encounter Visit Diagnoses Not on filedocumented in this encounter
--- OUTSIDE RECORDS SUMMARY | 2025-06-28 14:39 | XMS_ITS | Encounter Summary ---
Author Organization [employer] ([place], [place], [place], [place]) Address [address] [place] [address] Care Team Providers Care Piece Goods Packer Name Role Phone Unavailable Primary Care Provider Unavailabl e Encounter Details Date Type Department Care Team (Late st Contact Info) Description 11/05/2018 Transcribed Document [facility] [place] [facility] [place] [address] ProviderHugh MD [address] [place] [address] Social History Tobacco Use Types Packs/Day [...] Note - Hugh Mccollum MD - 11/05/2018 6:33 PM TIRE DESIGN ENGINEER [address] , [place] [address] Patient Copy Patient Information: Name: CHARLSE JASMINE Current Date: 11/05/2018 18:33:48 : 1970 Patient Address: [address] [place] [address] S[place]A [address] Patient Attending Physician: YARI CHACKO MD-KATI Primary Care Provider: SHERINE BLEVINS RN-[facility] Primary Care Provider Discharge Diagnosis: Weight on Admission: 191 lb, 0 oz Comment: Follow-up Instructions: With: Address: When: JORDI IBANEZ [address], [place] [address] Business (1) Within 1 month [...] 09/24/2002 Document Revised: 05/28/2017 Document Reviewed: 02/14/2016 [employer] Interactive Patient Education ? 2017 [employer]. [...] you are awake and alert. ??? Take eywt-pys-ofcyfkf and prescription medicines only as told by [...] 07/21/2014 Document Revised: 03/04/2017 Document Reviewed: 01/19/2017 [employer] Interactive Patient Education ? 2017 [employer]. Radial Site Care Introduction Refer to [...] 04/18/2006 Document Revised: 03/07/2017 Document Reviewed: 03/03/2014 [employer] Interactive Patient Education ? 2017 [employer]. CIGARETTE SMOKING: The facts are clear, cigarette smoking will shorten your life. Smoking can cause many illnesses along the way. As a healthcare provider, we recommend that you stop smoking. Assistance with quitting is available by contacting 0-393-WPTM-NOW. This is a free resource providing counseling, [...] computer, smartphone, or tablet. Just go to [email or web address] to get started. Questions? Call . [facility] would like to thank you for allowing us to assist you with your healthcare needs. MITALI Mason CONNIE SUE, (or employer relations representative) have received the above patient education materials/instructions and have verbalized understanding: Patient Signature _ Date/Time Patient Territory Supervisor Signature (if needed) Date/Time Clinician/Hospital Territory Supervisor Signature (if needed) Date/Time documented in this encounter Plan of Treatment Not on file documented as of this encounter Visit Diagnoses Not on filedocumented in this encounter
--- OUTSIDE RECORDS SUMMARY | 2025-06-28 14:39 | XMS_ITS | Encounter Summary ---
Author Organization [employer] ([place], [place], [place], [place]) Address [address] [place] [address] Care Team Providers Care Adjunct Faculty For Medical Terminology Name Role Phone Unavailable Primary Care Provider Unavailabl e Encounter Details Date Type Department Care Team (Late st Contact Info) Description 11/05/2018 Transcribed Document [facility] [place] [address] ProviderHugh MD [address] [place] [id number] Social History Tobacco Use Types Packs/Day Years [...] Conversion Note - Hugh ProviderMD - 11/05/2018 9:52 AM ACCOUNTING PROFESSIONAL Patient: CHARLES JASMINE Age: 48 years Sex: Female : 1970 Associated Diagnoses: None Author: YARI CHACKO MD-CAR Basic Information PCP: Teresa Escobar MD Home Health Provider: Olya Norris MD Chief Complaint Chest pain, dyspnea History of Present Illness 48 year old female with history of HTN, HLD, DMII, onging tobacco abuse and family history of CAD. She was seen by Dr Ibanez with complains of intermittent chest pain and dyspnea with exertion. She underwent a stress echo that was abnormal suggesting mid anterior hypokinesis, EF 60-65%. She has been scheduled for elective cardiac cath. Review of Systems Constitutional: Negative except as documented in history of present illness. Eye: Negative except as documented in history of present illness. Ear/Nose/Mouth/Throat: Negative except as documented in history of present illness. Respiratory: Negative except as documented in history of present illness. Cardiovascular: Negative except as documented in history of present illness. Gastrointestinal: Negative except as documented in history of present illness. Genitourinary: Negative except as documented in history of present illness. Hematology/Lymphatics: Negative except as documented in history of present illness. Endocrine: Negative except as documented in history of present illness. Immunologic: Negative except as documented in history of present illness. Musculoskeletal: Negative except as documented in history of present illness. Integumentary: Negative except as documented in history of present illness. Neurologic: Negative except as documented in history of present illness. Psychiatric: Negative except as documented in history of present illness. Health Status No qualifying data available No qualifying data available Allergies: Allergic Reactions (Selected) Severity Not Documented Chantix- Swelling to throat. Erythromycin- Swelling to throat. Current medications: (Selected) Inpatient Medications Ordered Normal Saline Flush: 10 mL, IV Push, Q12H Normal Saline Flush: 10 mL, IV Push, See Comment, PRN: IV Use Sodium Chloride 0.9% intravenous solution 500 mL: Titrate, IntraVENous Documented Medications Documented Anoro Ellipta 62.5 mcg-25 mcg/inh inhalation powder: 1 Puff, Inhalation, Daily, 0 Refill(s) Cymbalta 60 mg oral delayed release capsule: 1 Cap, Oral, Daily, (do not crush or chew), 30 Cap, 0 Refill(s) Nitrostat 0.4 mg sublingual tablet: 1 Tab, SubLINgual, Q5Min, PRN: Chest Pain, 100 Tab, 0 Refill(s) TriCor 48 mg oral tablet: 1 Tab, Oral, Daily, 30 Tab, 0 Refill(s) Ventolin HFA 90 mcg/inh inhalation aerosol: 2 Puff, Inhalation, BID, 0 Refill(s) aspirin 81 mg oral tablet: 1 Tab, Oral, Daily, 30 Tab, 0 Refill(s) gabapentin: 600 mg, Oral, QID, 0 Refill(s) hydroCHLOROthiazide 25 mg oral tablet: 1 Tab, Oral, Daily, 0 Refill(s) ibuprofen: 600 mg, Oral, BID, 0 Refill(s) metFORMIN 1000 mg oral tablet, extended release: 1 Tab, Oral, BID, 0 Refill(s) Problem list: All Problems HTN - Hypertension / SNOMED CT 5096665675 / Confirmed HLD - Hyperlipidemia / SNOMED CT 947714459 / Confirmed Type 2 diabetes mellitus / SNOMED CT 203522234 / Confirmed Menopause / SNOMED CT 596007247 / Confirmed Angina / SNOMED CT 881360825 / Confirmed Chronic cough / SNOMED CT 393465190 / Confirmed Sleep apnea / SNOMED CT 861208954 / Confirmed Cirrhosis of liver / SNOMED CT 60794028 / Confirmed Arthritis / SNOMED CT 2986343 / Confirmed Back pain / SNOMED CT 761665447 / Confirmed Restless legs syndrome / SNOMED CT 92360949 / Confirmed Peripheral neuropathy / SNOMED CT 7903901885 / Confirmed Fyeaq-7-yxxwcvhbaya 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 Social & Psychosocial Habits No Data Available Past Medical History: Active Type 2 diabetes mellitus (789480541) HTN - Hypertension (5582060931) HLD - Hyperlipidemia (904509088) Family History: Father Heart disease Diabetes mellitus Mother Hypertension Procedure history: CHOLECYSTECTOMY (44366). Salpingectomy. Social History Social & Psychosocial Habits Alcohol 11/05/2018 Alcohol Use History, Social Habits No Substance Abuse 11/05/2018 Recreational Drug Use History No Tobacco 11/05/2018 Smoking Status 10 or more cigarettes (1/ Years of Tobacco Use 35 Packs/Tins Daily 0.5 . Physical Examination VS/Measurements No qualifying data available General: Alert and oriented. Eye: Pupils are equal, round and reactive to light. HENT: Normocephalic. Neck: Supple, No carotid bruit, No jugular venous distention. Respiratory: Lungs are clear to auscultation, Respirations are non-labored, Breath sounds are equal. Cardiovascular: Normal rate, Regular rhythm, No murmur, No gallop, Good pulses equal in all extremities. Gastrointestinal: Soft, Non-tender, Non-distended, Normal bowel sounds. Musculoskeletal: Normal range of motion, Normal strength. Integumentary: Warm, Dry, [place]. Neurologic: Alert, Oriented. Psychiatric: Cooperative. Review / Management Results review: No qualifying data available. Stress ECHO 10/22/18 1. Clinically positive for shortness of breath and tightness in shoulders. 2. Electrocardiographically possible ischemia with 1 - [address] depression in lateral precordial leads with PVC noted. 3. Resting echo findings: left ventricular systolic function is normal with an estimated EF of 60% 4. Peak exercise echo findings: Echo images were acquired at peak stress which demonstrated mid anteroseptal hypokenisis Impression and Plan IMPRESSION: Lifestyle limiting progressive FC II/III dyspnea and CP. Abnormal Stress ECHOshowing anteroseptal hypokinesia, EF 60-65% HTN; controlled HLD; statin therpay DMII; non-insulin dependent Ongoing tobacco abuse PLAN; Left heart catheterization with possible percutaneous intervention including R/B. Pt agrees to proceed. Hold Metformin per protocol. Minimize NSAID. Smoking cessation. Continue other current CV meds. documented in this encounter Plan of Treatment Not on file documented as of this encounter Visit Diagnoses Not on filedocumented in this encounter
--- OUTSIDE RECORDS SUMMARY | 2025-06-28 14:39 | XMS_ITS | Encounter Summary ---
Author Organization [facility] Address [address] [place] [address] Care Team Providers Care Rn Peritoneal Dialysis Name Role Phone Jessica Man CARRIAGE DOGGER Primary Care Provider [phone] Mary Lim CARRIAGE DOGGER Unavailable [phone] Encounter Details Date Type Department Care Team (Late st Contact Info) Description 06/23/2025 Telephone [facility] Transplant Center [address] [facility] [address] [place] [address] Edda Méndez [place] [phone] Social History Tobacco Use Types Packs/Day Years [...] Telephone Encounter - Edda Méndez - 06/23/2025 10:07 AM EDT Received a call back from Ms Theodore - Provided reminder of appointment date/time. Reminded to bring ID, insurance information, all medications or current medication list; reminded to bring all completed paperwork. Reminded to bring support person and to wear masks. Reminded that there is no fasting required for labs and to expect a long appointment. Reminded that if applicable to their insurance, there may be a copay due at the time of this appointment. Encouraged a call if they have additional questions or are unable to attend/ need to reschedule. documented in this encounter Plan of Treatment Upcoming Encounters Date Type Department Care Team (Late st Contact Info) Description 07/02/2025 12:20 PM EDT Office Visit [facility] Medicine Specialties [address] [place] [address] Kira Ramirez, CARRIAGE DOGGER [address] [facility] [address] [place] [address] 07/22/2025 3:40 PM EDT Office Visit [facility] Endocrinology [address] [place] [phone] Silvia Lewis S, CARRIAGE DOGGER [address] [facility] [address] [place] [phone] 08/04/2025 9:30 AM EDT Clinical Support [facility] Transplant [place] [address] [facility] [address] [place] [address] 08/04/2025 11:00 AM EDT Office Visit [facility] Transplant [place] [address] [facility] [address] [place] [phone] Lily Dickinson MD [address] [facility] [address] [place] [address] documented as of this encounter Visit Diagnoses [...] documented as of this encounter Care Teams Rn Peritoneal Dialysis Relationship Specialty Start Date End Date Jessica Man APRN [address] [place] [address] PCP - General 02/24/21 Mary Lim APRN [address] [place] [address] Referring Physician Gastroenterology 05/11/25 documented as of this encounter
--- OUTSIDE RECORDS SUMMARY | 2025-06-28 14:39 | XMS_ITS | Encounter Summary ---
Author Organization [facility] Address [address] [place] [address] Care Team Providers Care Instructional Support Assistant Name Role Phone Jessica Man SPRING PRODUCTION SUPERVISOR Primary Care Provider Mary Lim SPRING PRODUCTION SUPERVISOR Unavailable [phone] Reason for Visit * Reason Onset Date Comments Prior-authorization/insurance Verification 06/09 Encounter Details Date Type Department Care Team (Late st Contact Info) Description 06/09/[address] [facility] Endocrinology [address] [place] [address] Silvia Adrian, SPRING PRODUCTION SUPERVISOR [address] [facility] [address] [place] [address] Prior-authorization/in surance Verification Social History [...] to call us back. Also sent a [employer] message regarding this. * Telephone Encounter - [...] Description 07/02/2025 12:20 PM EDT Office Visit [facility] Medicine Specialties [address] [place] [address] Kira Ramirez, SPRING PRODUCTION SUPERVISOR [address] [place] [phone] 07/22/2025 3:40 PM EDT Office Visit [facility] Endocrinology [address] [place] [phone] Silvia Adrian S, SPRING PRODUCTION SUPERVISOR [address] [place] [address] 08/04/2025 9:30 AM EDT Clinical Support [facility] Transplant [place] [address] [place] [address] 08/04/2025 11:00 AM EDT Office Visit [facility] Transplant [place] [address] [facility] [address] [place] [address] Lily Dickinson MD [address] [place] [address] documented as of this encounter Visit Diagnoses Diagnosis Type 2 diabetes mellitus with hyperglycemia, without long-term current use of insulin ([facility])- Primary documented in this encounter Additional Health Concerns Assessment Noted Time PHQ-9 Depression Total Score: 7 12/22/19 25 12:39 PM EDT A fall risk assessment has been complete d for the patient 03/13/2023 9:53 AM EDT A Body Mass Index follow-up plan has been documented for the patient 04/06/2025 2:27 PM EDT documented as of this encounter Care Teams Instructional Support Assistant Relationship Specialty Start Date End Date Jessica Man APRN [address] [place] [id number] PCP - General 02/24/21 Mary Lim APRN [address] [place] [address] (work) Referring Physician Gastroenterology 05/11/25 documented as of this encounter
--- OUTSIDE RECORDS SUMMARY | 2025-06-28 14:39 | XMS_ITS | Encounter Summary ---
Author Organization Healthcare Address [address] [place] [address] Care Team Providers Care Casino Accountant Name Role Phone Jessica Man SUPERINTENDENT GENERAL Primary Care Provider [phone] Mary Lim SUPERINTENDENT GENERAL Unavailable [phone] Reason for Visit * Reason Onset Date Comments Med Refill 06/04/2025 Encounter Details Date Type Department Care Team (Late st Contact Info) Description 06/04/2025 Refill [facility] Endocrinology [address] [place] [address] Jessica Aranda Social History Tobacco Use Types [...] Description 07/02/2025 12:20 PM EDT Office Visit [facility] [address] [place] [address] Kira Ramirez, SUPERINTENDENT GENERAL [address] [place] [address] 07/22/2025 3:40 PM EDT Office Visit [facility] Endocrinology [address] [place] [address] Silvia Lewis S, SUPERINTENDENT GENERAL [address] [place] [address] 08/04/2025 9:30 AM EDT Clinical Support [facility] [place] [address] [place] [address] 08/04/2025 11:00 AM EDT Office Visit [facility] [address] [facility] [address] [place] [address] Lily Dickinson MD [address] [facility] [address] [place] [address] documented as of this encounter [...] documented as of this encounter Care Teams Casino Accountant Relationship Specialty Start Date End Date Jessica Man, SUPERINTENDENT GENERAL [address] [place] [address] PCP - General 02/24/21 Mary Lim APRN [address] [place] [address] Referring Physician Gastroenterology 05/11/25 documented as of this encounter
--- OUTSIDE RECORDS SUMMARY | 2025-06-28 14:39 | XMS_ITS | Encounter Summary ---
Author Organization [employer] ([place], [place], [place], [place]) Address [address] [place] [address] Care Team Providers Care Ballistics Tester Name Role Phone Unavailable Primary Care Provider Unavailabl e Encounter Details Date Type Department Care Team (Late st Contact Info) Description 11/05/2018 Transcribed Document [facility] Family Medicine [facility] [place] [address] ProviderHugh MD [address] [place] [address] Social History Tobacco Use Types Packs/Day [...] Hugh Mccollum MD - 11/05/2018 5:34 PM SALES SUPPORT ADVISOR [address] , [place] [address] Patient Copy Patient Information: Name: CHARLES JASMINE Current Date: 11/05/2018 17:34:47 : 1970 Patient Address: [address] [place] [address] SINDI AYALA [address] Patient Attending Physician: YARI CHACKO MD-CAR Primary Care Provider: SHERINE BLEVINS RN-[facility] Primary Care Provider Discharge Diagnosis: Weight on Admission: 191 lb, 0 oz Comment: Follow-up Instructions: With: Address: When: JORDI IBANEZ [address], [place] [address] Business (1) Within 1 month [...] drive for 24 hours after the procedure Showering/Bathing:Other: you may remove the dressing from [...] 09/24/2002 Document Revised: 05/28/2017 Document Reviewed: 02/14/2016 [employer] Interactive Patient Education ? 2017 Elsevier Inc. [...] you are awake and alert. ??? Take gfnl-odl-vgjyqeo and prescription medicines only as told by [...] 07/21/2014 Document Revised: 03/04/2017 Document Reviewed: 01/19/2017 [employer] Interactive Patient Education ? 2017 [employer] Radial Site Care Introduction Refer to [...] 04/18/2006 Document Revised: 03/07/2017 Document Reviewed: 03/03/2014 [employer] Interactive Patient Education ? 2017 [employer] CIGARETTE SMOKING: The facts are clear, cigarette smoking will shorten your life. Smoking can cause many illnesses along the way. As a healthcare provider, we recommend that you stop smoking. Assistance with quitting is available by contacting 8-128-DNJM-NOW. This is a free resource providing counseling, [...] computer, smartphone, or tablet. Just go to [employer] to get started. Questions? Call . [facility] would like to thank you for allowing us to assist you with your healthcare needs. I, CHARLES JASMINE, (or solar sales representative and assessor) have received the above patient education materials/instructions and have verbalized understanding: Patient Signature _ Date/Time Patient Director [employer] Signature (if needed) Date/Time Clinician/Hospital Director [employer] Signature (if needed) Date/Time documented in this encounter Plan of Treatment Not on file documented as of this encounter Visit Diagnoses Not on filedocumented in this encounter
--- OUTSIDE RECORDS SUMMARY | 2025-06-28 14:39 | XMS_ITS | Encounter Summary ---
Author Organization [facility] Address [address] [place] [address] Care Team Providers Care Paralegal Internship Name Role Phone Jessica Man APRN Primary Care Provider [phone] Mray Lim APRN Unavailable [phone] Reason for Referral * Transplant (Routine) - Pending Review Specialty Diagnoses / Procedures Referred By Contac t Referred To Contact Transplant Diagnoses End-stage liver disease (CMS/HCC) Mary Lim APRN [address] [place] [address] Phone: tel: fax: [facility] [address] [address] Phone: tel: fax: Referral ID Status Reason Start Date Expiration Date Visits Requested Visits Authorized [id number] Pending Review Specialty Services Required 05/11/2025 12/09/[phone] Reason for Visit * Reason Comments Referral - Liver Txp Encounter Details Date Type Department Care Team (Late st Contact Info) Description 05/11/2025 Telephone [facility] [address] [address] Edda Méndez [place] [phone] Referral - Liver Txp Social History Tobacco [...] [facility] Medicine Specialties [address] 2[address] [place] [address] Kira Ramirez D, CREW TRAINER [address] [facility] [address] [place] [address] 07/22/2025 3:40 PM EDT Office Visit [facility] Endocrinology [address] [place] [address] Silvia Lewis S, CREW TRAINER [address] [place] [address] 08/04/2025 9:30 AM EDT Clinical Support [facility] [address] [place] [address] 08/04/2025 11:00 AM EDT Office Visit [facility] [address] [place] [address] Lily Dickinson MD [address] [place] [address] Scheduled Referrals Name Type Priority Associated Diagnoses [...] Venous blood specimen / Unknown 03/05/2025 Result [facility] Provider LAB BLOOD ORDERABLES Final R esult * Total Bilirubin, Plasma (03/05/2025) External Bilirubin Total 1.6 mg/dL Blood Venous blood specimen / Unknown 03/05/2025 Result [facility] Historical Provider LAB BLOOD ORDERABLES Final R esult * Creatinine, Plasma (03/05/2025) External Creatinine Blood 1.1 mg/dL Blood Venous blood specimen / Unknown 03/05/2025 Result [facility] Provider LAB BLOOD ORDERABLES Final R esult * Sodium, Plasma (03/05/2025) External Sodium 135 mmol/L Blood Venous blood specimen / Unknown 03/05/2025 [facility] Provider LAB BLOOD ORDERABLES Final R [...] documented as of this encounter Care Teams Paralegal Internship Relationship Specialty Start Date End Date Jessica Man APRN [address] [place] [address] PCP - General 02/24/21 Mary Lim APRN [address] [place] [address] Referring Physician Gastroenterology 05/11/25 documented as of this encounter
--- OUTSIDE RECORDS SUMMARY | 2025-06-28 14:39 | XMS_ITS | Encounter Summary ---
Author Organization [employer] ([place], [place], [place], [place]) Address [address] [place] [address] Care Team Providers Care Variety Performer Name Role Phone Unavailable Primary Care Provider Unavailabl e Encounter Details Date Type Department Care Team (Late st Contact Info) Description 11/05/2018 Transcribed Document [facility] Family Medicine [facility] [place] [address] ProviderHugh MD [address] [place], [place] [phone] Social History Tobacco Use Types Packs/Day Years [...] Conversion Note - Hugh ProviderMD - 11/05/2018 1:02 PM DATA PROCESSING MANAGER Spiritual Care Assessment Entered On: 11/05/2018 14:33 EST Performed On: 11/05/2018 14:12 EST by ROMEO SAWANT General Information Initial Visit : Yes Referred by : Patient Referral Reason Comment : Pre-procedure visit Ministry Provided to : Patient, Family/Significant other ROMEO SAWANT - 11/05/2018 14:30 EST Spiritual Assessment Spiritual Assessment Comment/Summary Points : Pre-procedure visit and prayer with patient and S.O. Patient expresses normal anxiety. Spirital Assessment Comment/Summary Report : SPIRITUAL ASSESSMENT COMMENT/SUMMARY No qualifying data available. ROMEO SAWANT P - 11/05/2018 14:30 EST Interventions Emotional Support : Empathic/Engaged listening, Family/Significant other supported, Feelings expressed Spiritual and Christian : Prayer shared, Spiritual/Christian support provided ROMEO SAWANT P - 11/05/2018 14:30 EST Electronically signed by [facility] Conversion Aluminum Pool Installer Cerner at 01/31/2023 5:28 PM CDT documented in this encounter Plan of Treatment Not on file documented as of this encounter Visit Diagnoses Not on filedocumented in this encounter
--- OUTSIDE RECORDS SUMMARY | 2025-06-28 14:40 | XMS_ITS | Encounter Summary ---
Author Organization [facility] Address [address] [place] [address] Care Team Providers Care Fisher Diving Name Role Phone Jessica Man HAUL DRIVER Primary Care Provider [phone] Mary Lim HAUL DRIVER Unavailable [phone] Encounter Details Date Type Department Care Team (Late st Contact Info) Description 06/01/2025 Telephone [facility] [address] [facility] [address] [place] [address] Edda Méndez [place] [phone] Social History Tobacco Use Types Packs/Day Years [...] Description 07/02/2025 12:20 PM EDT Office Visit [facility] Medicine Specialties [address] [place] [address] Kira Ramirez, HAUL DRIVER [address] [facility] [address] [place] [address] 07/22/2025 3:40 PM EDT Office Visit [facility] Endocrinology [address] [place] [address] Silvia Lewis S, HAUL DRIVER [address] [facility] [address] [place] [address] 08/04/2025 9:30 AM EDT Clinical Support [facility] Transplant [place] [address] [facility] [address] [place] [address] 08/04/2025 11:00 AM EDT Office Visit [facility] Transplant [place] [address] [facility] [address] [place] [address] Lily Dickinson MD [address] [facility] [address] [place] [address] documented as of this encounter Visit Diagnoses [...] documented as of this encounter Care Teams Fisher Diving Relationship Specialty Start Date End Date Jessica Man APRN [address] [place] [address] PCP - General 02/24/21 Mary Lim APRN [address] [place], [place] [id number] Referring Physician Gastroenterology 05/11/25 documented as of this encounter
--- OUTSIDE RECORDS SUMMARY | 2025-06-28 14:40 | XMS_ITS | Encounter Summary ---
Author Organization Healthcare Address [address] [place] [address] Care Team Providers Care Resource Protection Specialist Name Role Phone Jessica Man PRESCHOOL HEAD TEACHER Primary Care Provider [phone] Mary Lim PRESCHOOL HEAD TEACHER Unavailable [phone] Encounter Details Date Type Department Care Team (Late st Contact Info) Description 05/25/2025 Orders Only External Location [address] [place] [address] Provider, External Social History Tobacco Use Types [...] Description 07/02/2025 12:20 PM EDT Office Visit [facility] [address] [place] [address] Kira Ramirez, PRESCHOOL HEAD TEACHER [address] [place] [address] 07/22/2025 3:40 PM EDT Office Visit [facility] Endocrinology [address] [place] [address] Silvia Lewis, PRESCHOOL HEAD TEACHER [address] [place] [address] 08/04/2025 9:30 AM EDT Clinical Support [facility] Transplant [place] [address] [place] [address] 08/04/2025 11:00 AM EDT Office Visit [facility] [place] [address] [place] [address] Lily Dickinson MD [address] [place] [address] documented as of this encounter Procedures Procedure [...] documented as of this encounter Care Teams Resource Protection Specialist Relationship Specialty Start Date End Date Jessica Man, PRESCHOOL HEAD TEACHER [address] [place] [address] PCP - General 02/24/21 Mary Lim APRN [address] [place] [address] Referring Physician Gastroenterology 05/11/25 documented as of this encounter
--- OUTSIDE RECORDS SUMMARY | 2025-06-28 14:40 | XMS_ITS | Encounter Summary ---
Author Organization Healthcare Address [address] [place] [address] Care Team Providers Care Finger Buff Sewer Name Role Phone Jessica Man EXAMINER RATING CLERK Primary Care Provider [phone] Mary Lim EXAMINER RATING CLERK Unavailable [phone] Encounter Details Date Type Department Care Team (Late st Contact Info) Description 06/04/2025 Telephone [facility] Endocrinology [address] [place] [address] Silvia Lewis, EXAMINER RATING CLERK [address] [facility] [address] [place] [address] Social History Tobacco Use Types [...] Description 07/02/2025 12:20 PM EDT Office Visit [facility] Medicine Specialties [address] [place] [address] Kira Ramirez, EXAMINER RATING CLERK [address] [facility] [address] [place] [address] 07/22/2025 3:40 PM EDT Office Visit [facility] Endocrinology [address] [place] [address] Silvia Lewis S, EXAMINER RATING CLERK [address] [facility] [address] [place] [address] 08/04/2025 9:30 AM EDT Clinical Support [facility] Transplant [place] [address] [facility] [address] [place] [address] 08/04/2025 11:00 AM EDT Office Visit [facility] [place] [address] [place] [address] Lily Dickinson MD [address] [facility] [address] [place] [address] documented as of this encounter Visit Diagnoses [...] documented as of this encounter Care Teams Finger Buff Sewer Relationship Specialty Start Date End Date Jessica Man APRN [address] [place] [address] PCP - General 02/24/21 Mary Lim APRN [address] [place], [place] [phone] Referring Physician Gastroenterology 05/11/25 documented as of this encounter
--- OUTSIDE RECORDS SUMMARY | 2025-06-28 14:40 | XMS_ITS | Encounter Summary ---
Author Organization Healthcare Address [address] [place] [address] Care Team Providers Care Sales Agent Business Services Name Role Phone Jessica Man OPTICAL MECHANIC APPRENTICE Primary Care Provider [phone] Mary Lim OPTICAL MECHANIC APPRENTICE Unavailable [phone] Reason for Referral * Consultation (Routine) - Closed Specialty Diagnoses / Procedures Referred By Contac t Referred To Contact Endocrinology Diagnoses Type 2 diabetes mellitus with diabetic neuropathy, unspecified whether intermediate insulin use (CMS/HCC) Jessica Man, OPTICAL MECHANIC APPRENTICE [address] [place] [address] Phone: tel: fax: [facility] Endocr[facility] [address] [place] [address] Phone: tel: fax: Referral ID Status Reason Start Date Expiration Date V isits Requested Visits Authorized [id number] Closed Specialty Services Required 10/10/2022 04/10/2024 1 1 Encounter Details Date Type Department Care Team (Late st Contact Info) Description 10/10/2022 Community [facility] Community Practice [address] [place] [address] Jessica Man, OPTICAL MECHANIC APPRENTICE [address] [place], [place] [phone] Type 2 diabetes mellitus with diabetic neuropathy, unspecified whether medical terminologist insulin use (CMS/HCC) (Primary Dx) Social [...] Description 07/02/2025 12:20 PM EDT Office Visit [facility] Medicine Specialties [address] [place] [address] Kira Ramirez D, OPTICAL MECHANIC APPRENTICE [address] [facility] [address] [place] [address] 07/22/2025 3:40 PM EDT Office Visit [facility] Endocrinology [address] [place] [address] Silvia Lewis S, OPTICAL MECHANIC APPRENTICE [address] [facility] [address] [place] [address] 08/04/2025 9:30 AM EDT Clinical Support [facility] Transplant [place] [address] [facility] [address] [place] [address] 08/04/2025 11:00 AM EDT Office Visit [facility] [place] [address] [place] [address] Lily Dickinson MD [address] [facility] [address] [place] [address] Scheduled Referrals Name Type Priority Associated Diagnoses Order Schedule Ambulatory referral to Endocrinology Outpatient Referral Routine Type 2 diabetes mellitus with diabetic neuropathy, unspecified whether medical terminologist insulin use ([facility]) Expected: 10/10/2022 (Approximate), Expires: 04/10/2024 documented as of this encounter Visit Diagnoses Diagnosis Type 2 diabetes mellitus with diabetic neuropathy, unspecified whether intermediate insulin use ([facility])- Primary documented in this encounter Care Teams Sales Agent Business Services Relationship Specialty Start Date End Date Jessica Man APRN [address] [place] [address] PCP - General 02/24/21 Mary Lim APRN [address] [place] [address] Referring Physician Gastroenterology 05/11/25 documented as of this encounter
--- OUTSIDE RECORDS SUMMARY | 2025-06-28 14:40 | XMS_ITS | Encounter Summary ---
Author Organization [facility] Address [address] [place] [address] Care Team Providers Care It Project Lead Name Role Phone Jessica Man BED TEACHER Primary Care Provider [phone] Mary Lim BED TEACHER Unavailable [phone] Reason for Referral * Consultation (Routine) - Closed Specialty Diagnoses / Procedures Referred By Contac t Referred To Contact Transplant Diagnoses End-stage liver disease (CMS/HCC) Donnie Jordan MD [address] [address] Phone: tel: fax: [facility] [place] [address] [place] [address] [address] Phone: tel: fax: Referral ID Status Reason Start Date Expiration Date V isits Requested Visits Authorized [id number] Closed Specialty Services Required 05/26/2025 11/25/2026 1 1 Reason for Visit * Reason Comments Appointment Scheduling Encounter Details Date Type Department Care Team (Late st Contact Info) Description 05/26/[address] [facility] Transplant [address] [address] Edda Méndez [place] [phone] Appointment (Scheduling) Social History Tobacco Use Types [...] to clinic. New Patient materials attached to [employer]. Notified referring - left voicemail message for Shilpi Henry. documented in this encounter Plan of Treatment Upcoming Encounters Date Type Department Care Team (Late st Contact Info) Description 07/02/2025 12:20 PM EDT Office Visit [facility] Medicine Specialties [address] [place] [address] Kira Ramirez, BED TEACHER [address] [place] [address] 07/22/2025 3:40 PM EDT [facility] [address] [place] [address] Silvia Lewis, BED TEACHER [address] [place] [address] 08/04/2025 9:30 AM EDT Clinical Support [facility] [place] [address] [place] [address] 08/04/2025 11:00 AM EDT Office Visit [facility] [place] [address] [place] [address] Lily Dickinson MD [address] [place] [address] Pending Results Name Type Priority Associated Diagnoses Date /Time Comprehensive Urine Drug Screening, Qualitative Assay, >= 27 Drug Classes Lab Routine End-stage liver disease (CMS/HCC) 06/25/2025 7:32 AM EDT Nicotine Cotinine Metabolite Lab Routine End-stage liver disease (CMS/HCC) 06/25/2025 7:08 AM EDT Pain Management, Quantitative Urine Drug Testing Lab Routine End-stage liver disease (CMS/HCC) 06/25/2025 7:32 AM EDT Scheduled Orders Name Type Priority Associated Diagnoses Orde r Schedule Comprehensive Urine Drug Screening, Qualitative Assay, >= [...] until 11/27/2026 documented as of this encounter Results * Alcohol Urine (06/25/2025 7:32 AM EDT) Alcohol Urine Negative Negative 06/25/2025 11:46 AM EDT [facility] Urine Urine specimen obtained by clean catch procedure / Unknown Non-blood Collection / Unknown 06/25/2025 7:32 AM EDT 06/25/2025 8:34 AM EDT Narrative [facility] - 06/25/2025 11:46 AM EDT The correlation between urine and serum ethanol concentration is highly variable. Test performed by Gas Chromatography at the [facility]. This test was developed and its performance characteristics determined by [facility]. It has not been cleared or approved by the FDA.The laboratory is regulated under CLIA as qualified to perform high-complexity testing. This test is used for clinical purposes only. Donnie Jordan MD LAB URINE ORDERABLES Final Resul t Performing Organization Address [facility] Co de Phone Number [facility] [address] [place] [address] * (ABNORMAL) Hepatitis A Antibody IgG (06/25/2025 7:08 AM EDT) Hepatitis A Antibody IgG Positive(A ) Negative 06/25/2025 9:15 AM EDT [facility] Blood Venous blood specimen / Unknown Venipuncture / Unknown 06/25/2025 7:08 AM EDT 06/25/2025 7:47 AM EDT Donnei Jordan MD LAB BLOOD ORDERABLES Final Resul t Performing Organization Address [facility] Co de Phone Number [facility] [address] [place] [address] * HEPATITIS B SURFACE ANTIBODY, QUANTITATIVE (06/25/2025 7:08 AM EDT) Hepatitis B Surface Antibody, Quantitative <8.00 NonReactiv e: <8, Grayzone: 8 - <12, Reactive: >= 12 mIU/mL 06/25/2025 9:15 AM EDT [facility] Comment: Nonreactive. Individual is considered not immune to HBV infection. Blood Venous blood specimen / Unknown Venipuncture / Unknown 06/25/2025 7:08 AM EDT 06/25/2025 7:47 AM EDT us Donnie Jordan MD LAB BLOOD ORDERABLES Final Resul t Performing Organization Address City/[facility]/ZIP Co de Phone Number [facility] [address] [place] [address] * Hepatitis B Surface Antigen (06/25/2025 7:08 AM EDT) Hepatitis B Surf Antigen Negative Negative 06/25/2025 9:15 AM EDT [facility] Blood Venous blood specimen / Unknown Venipuncture / Unknown 06/25/2025 7:08 AM EDT 06/25/2025 7:47 AM EDT us Donnie Jordan MD LAB BLOOD ORDERABLES Final Resul t Performing Organization Address City/[facility] Co de Phone Number [facility] [address] [place] [address] * Hepatitis C Antibody (06/25/2025 7:08 AM EDT) Hepatitis C Antibody Negative Negative 06/25/2025 8:31 AM EDT [facility] Blood Venous blood specimen / Unknown Venipuncture / Unknown 06/25/2025 7:08 AM EDT 06/25/2025 7:47 AM EDT us Donnie Jordan MD LAB BLOOD ORDERABLES Final Resul t Performing Organization Address City/[facility] Co de Phone Number [facility] [address] [place] [address] * (ABNORMAL) Protime-INR (06/25/2025 7:08 AM EDT) Prothrombin Time 17.0(H) 12.0 - 14.3 sec LAB COAGULATION METHOD 06/25/2025 8:07 AM EDT [facility] INR 1.3(H) 0.9 - 1.1 LAB COAGULATION METHOD 06/25/2025 8:07 AM EDT [facility] Blood Venous blood specimen / Unknown Venipuncture / Unknown 06/25/2025 7:08 AM EDT 06/25/2025 7:47 AM EDT Narrative [facility] - 06/25/2025 8:07 AM EDT OPTIMAL INR RANGES FOR PATIENT ON ORAL ANTICOAGULANT THERAPY Prevention of venous thromboembolism INR 2.0 to 3.0 In patients with heart disease: Atrial fibrillation INR 2.0 to 3.0 Valvular heart disease INR 2.0 to 3.0 Tissue heart valves INR 2.0 to 3.0 Mechanical prosthetic valves INR 2.5 to 3.5 Prevention of recurrent AR INR 2.5 to 3.5 us Donnie Jordan MD LAB BLOOD ORDERABLES Final Resul t [facility] [address] [place] [address] * (ABNORMAL) Comprehensive metabolic panel (06/25/2025 7:08 AM EDT) Glucose, Plasma 50(LL) 74 - 99 mg/dL 06/25/2025 8:22 AM EDT [facility] BUN, Plasma 33(H) 7 - 21 mg/dL 06/25/2025 8:22 AM EDT [facility] Creatinine, Plasma 1.30(H) 0.60 - 1.10 mg/dL 06/25/2025 8:22 AM EDT [facility] BUN/Creatinine Ratio 25 06/25/2025 8:22 AM EDT [facility] Sodium, Plasma 134(L) 136 - 145 mmol/L 06/25/2025 8:22 AM EDT [facility] Potassium, Plasma 3.6 3.6 - 4.9 mmol/L 06/25/2025 8:22 AM EDT [facility] Chloride, Plasma 101 97 - 107 mmol/L 06/25/2025 8:22 AM EDT [facility] CO2, Plasma 22 22 - 29 mmol/L 06/25/2025 8:22 AM EDT [facility] Anion Gap 11 6 - 16 mmol/L 06/25/2025 8:22 AM EDT [facility] Total Calcium, Plasma 8.8(L) 8.9 - 10.2 mg/dL 06/25/2025 8:22 AM EDT [facility] Total Protein 6.8 6.3 - 7.9 g/dL 06/25/2025 8:22 AM EDT [facility] Albumin, Plasma 3.2(L) 3.5 - 5.2 g/dL 06/25/2025 8:22 AM EDT [facility] AST, Plasma 76(H) 10 - 35 U/L 06/25/2025 8:22 AM EDT [facility] ALT, Plasma 30 10 - 35 U/L 06/25/2025 8:22 AM EDT [facility] Alkaline Phosphatase, Plasma 158(H) 35 - 104 U/L 06/25/2025 8:22 AM EDT [facility] Total Bilirubin, Plasma 2.1(H) 0.2 - 1.1 mg/dL 06/25/2025 8:22 AM EDT [facility] eGFRcr 48.7 mL/min/1.7 3m*2 06/25/2025 8:22 AM EDT [facility] Comment:Reported eGFRcr in m L/min/1.73m2 is based the CKD-EPI 2020 equation that does not use a race coefficient. Blood Venous blood specimen / Unknown Venipuncture / Unknown 06/25/2025 7:08 AM EDT 06/25/2025 7:47 AM EDT us Donnie Jordan MD LAB BLOOD ORDERABLES Final Resul t [facility] [address] [place] [address] * (ABNORMAL) Hemogram (CBC) (06/25/2025 7:08 AM EDT) WBC Count 10.55(H) 3.70 - 10.30 10*3/uL LAB HEMATOLOGY METHOD 06/25/2025 8:04 AM EDT [facility] RBC Count 3.34(L) 3.90 - 5.20 10*6/uL LAB HEMATOLOGY METHOD 06/25/2025 8:04 AM EDT [facility] HGB 9.2(L) 11.2 - 15.7 g/dL LAB HEMATOLOGY METHOD 06/25/2025 8:04 AM EDT [facility] HCT 27.9(L) 34.0 - 45.0 % LAB HEMATOLOGY METHOD 06/25/2025 8:04 AM EDT [facility] Platelet Count 173 155 - 369 10*3/uL LAB HEMATOLOGY METHOD 06/25/2025 8:04 AM EDT [facility] MCV 84 79 - 98 fL LAB HEMATOLOGY METHOD 06/25/2025 8:04 AM EDT [facility] MCH 27.5 26.0 - 32.0 pg LAB HEMATOLOGY METHOD 06/25/2025 8:04 AM EDT [facility] MCHC 33.0 30.7 - 35.5 g/dL LAB HEMATOLOGY METHOD 06/25/2025 8:04 AM EDT [facility] RDW 17.8(H) 11.5 - 14.5 % LAB HEMATOLOGY METHOD 06/25/2025 8:04 AM EDT [facility] MPV 9.6 8.8 - 12.5 fL LAB HEMATOLOGY METHOD 06/25/2025 8:04 AM EDT [facility] nRBC 0.0 <=0.0 per 100 WBCs LAB HEMATOLOGY METHOD 06/25/2025 8:04 AM EDT [facility] Blood Venous blood specimen / Unknown Venipuncture / Unknown 06/25/2025 7:08 AM EDT 06/25/2025 7:54 AM EDT us Donnie Jordan MD LAB BLOOD ORDERABLES Final Resul t [facility] [address] [place] [address] * Alpha fetoprotein, serum (06/25/2025 7:08 AM EDT) Alpha Fetoprotein, Serum <2.3 <10.0 ng/mL 06/25/2025 8:23 AM EDT [facility] Blood Venous blood specimen / Unknown Venipuncture / Unknown 06/25/2025 7:08 AM EDT 06/25/2025 7:47 AM EDT Narrative [facility] - 06/25/2025 8:23 AM EDT Performed by José Manuel electrochemiluminescent immunoassay which is traceable to the 1st AFP IRP WHO Reference standard 72/255. Results obtained with different test methods or kits cannot be used interchangeably. Donnie Jordan MD LAB BLOOD ORDERABLES Final Resul t Performing Organization Address City/[facility]/ZIP Co de Phone Number [facility] [address] [place] [address] * ABO/Rh (06/25/2025 7:08 AM EDT) ABO/Rh O Positive 06/25/2025 7:04 AM EDT BLOOD BANK Blood Venous blood specimen / Unknown Venipuncture / Unknown 06/25/2025 7:08 AM EDT 06/25/2025 7:45 AM EDT Donnie Jordan MD LAB BLOOD BANK TEST ORDERABLES F inal Result Performing Organization Address [facility] de Phone Number BLOOD BANK [address] [place] [address], documented in this encounter Visit Diagnoses Diagnosis [...] documented as of this encounter Care Teams It Project Lead Relationship Specialty Start Date End Date Jessica Man APRN [address] [place] [address] PCP - General 02/24/21 Mary Lim APRN [address] [place] [address] Referring Physician Gastroenterology 05/11/25 documented as of this encounter
--- OUTSIDE RECORDS SUMMARY | 2025-06-28 14:40 | XMS_ITS ---
Author Organization [facility] Address [address] [place] [address] Care Team Providers Care Web Site Admin Name Role Phone Jessica Man APRN Primary Care Provider [phone] Mary Lim APRN Unavailable [phone] Transplant Episode Liver Candidate [facility] ([place], [place]) - JAMIE Referred on 05/11/2025 Marked as Active on 06/28/2025 Reason: Pending Committee Presentation Liver CoordinatorJaci Duenas RN Fax: N/A Email: N/A Scores Score Value Updated Expires Exceptions/[place] sons CPRA Not available MELD (Calc) 18 06/25/2025 [place] Organ Diagnosis Organ Primary Contributory Liver Cirrhosis: Metabolic Dysfunction -Associated Steatohepatitis (MASH) Care Team Name Role Phone Fax Email Jaci Duenas RN Liver Coordinator [phone] N/A N/A Mary Lim APRN Referring Physician [phone] N/A Jessica Man APRN Primary Care Provider [phone] N/A Elaine Banerjee Hoisting Engine Operator [phone] N/A N/A Donnie Jordan MD Surgeon [phone] N/A Events Pre-Transplant Referred: 05/11/2025 Appointments (05/28/2025 - 07/28/2025) When With Visit Type Description 06/25/2025 Transplant - [facility] End-st age liver disease (CMS/HCC) 06/25/2025 Transplant - Marianna Fierro Initial Clinic Evaluation End-stage liver disease (CMS/HCC) (Primary Dx); Decompensated hepatic cirrhosis (CMS/HCC); Other ascites; Metabolic dysfunction-associated steatotic liver disease (MASLD); Alpha 1-antitrypsin PiMS phenotype; Tobacco abuse
--- OUTSIDE RECORDS SUMMARY | 2025-06-28 14:40 | XMS_ITS | Encounter Summary ---
Author Organization Healthcare Address [address] [place] [address] Care Team Providers Care Sampler Pickup Name Role Phone Jessica Man YARD PILOT Primary Care Provider [phone] Mary Lim YARD PILOT Unavailable [phone] Encounter Details Date Type Department Care Team (Late st Contact Info) Description 02/12/2025 Orders Only External Location [address] [place] [address] Provider, External Social History Tobacco Use Types [...] Description 07/02/2025 12:20 PM EDT Office Visit [facility] Medicine Specialties [address] [place] [address] Kira Ramirez, YARD PILOT [address] [place] [address] 07/22/2025 3:40 PM EDT Office Visit [facility] Endocrinology [address] [place] [address] Silvia Lewis, YARD PILOT [address] [place] [address] 08/04/2025 9:30 AM EDT Clinical Support [facility] [place] [address] [place] [address] 08/04/2025 11:00 AM EDT Office Visit [facility] [place] [address] [place] [address] Lily Dickinson MD [address] [place] [address] documented as of this encounter Procedures Procedure Name Priority Date/Time Associated Diagnosis Comments CT OUTSIDE IMAGES 02/12/2025 12:31 PM EDT documented in this encounter Results * CT OUTSIDE IMAGES (02/12/2025 12:31 PM EDT) Anatomical Region Laterality Modality Computed Tomogra phy 02/12/2025 12:3 1 PM EDT External Provider IMG CT PROCEDURES Final Result [...] documented as of this encounter Care Teams Sampler Pickup Relationship Specialty Start Date End Date Jessica Man, YARD PILOT [address] [place] [address] PCP - General 02/24/21 Mary Lim APRN [address] [place], [place] [id number] Referring Physician Gastroenterology 05/11/25 documented as of this encounter
--- OUTSIDE RECORDS SUMMARY | 2025-06-28 14:40 | XMS_ITS | Encounter Summary ---
Author Organization Healthcare Address [address] [place] [address] Care Team Providers Care Fish Smoker Name Role Phone Jessica Man CLERK Primary Care Provider [phone] Mary Lim CLERK Unavailable [phone] Reason for Visit * Reason Onset Date Comments Prior-authorization/insurance Verification 06/02 Encounter Details Date Type Department Care Team (Late st Contact Info) Description 06/02/2025 Telephone [facility] Endocrinology [address] [place] [address] Silvia Adrian, CLERK [address] [facility] [address] [place] [address] Prior-authorization/in surance Verification Social History [...] 07/02/2025 12:20 PM EDT Office Visit [facility] Medicine Specialties [address] [place] [address] Kira Ramirez, CLERK [address] [facility] [address] [place] [address] 07/22/2025 3:40 PM EDT Office Visit [facility] Endocrinology [address] [place] [address] Silvia Adrian S, CLERK [address] [place] [address] 08/04/2025 9:30 AM EDT Clinical Support [facility] Transplant [place] [address] [facility] [address] [place] [address] 08/04/2025 11:00 AM EDT Office Visit [facility] [place] [address] [place] [address] Lily Dickinson MD [address] [place] [address] documented as of this encounter [...] documented as of this encounter Care Teams Fish Smoker Relationship Specialty Start Date End Date Jessica Man APRN [address] [place] [address] PCP - General 02/24/21 Mary Lim APRN [address] [place] [address] Referring Physician Gastroenterology 05/11/25 documented as of this encounter
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
[2025-06-28 16:25] LABS: Albumin Level 3.4 g/dl (3.5-5.0); Chloride 102 mmol/L (98-107); Potassium 3.5 mmoL/L (3.5-5.1); Sodium 134 mmol/L (136-145)
[2025-06-28 16:28] LABS: Alanine Aminotransferase 33 U/L (12-78); Albumin/Globulin Ratio 0.9 (1.1-1.8); Alkaline Phosphatase 185 U/L (38-126); Anion Gap 11.5 mEq/L (5-15); Aspartate Amino Transferase 95 U/L (14-36); Bilirubin,Total 3.1 mg/dl (0.2-1.3); Blood Urea Nitrogen 40 mg/dl (7-17); Calcium 8.7 mg/dl (8.4-10.2); Carbon Dioxide 24 mmol/L (22.0-30.0); Creatinine Clearance Estimated 62 mL/min (50-200); Creatinine,Serum 1.50 mg/dl (0.52-1.04); Estimated Glomerular Filt Rate 36 ml/min (>60); GFR (African American) 44 ML/MIN (>60); Globulin 3.8 g/dL (1.3-3.2); Glucose 88 mg/dl (74-100); Hematocrit 27.5 % (37.0-47.0); Hemoglobin 9.0 g/dL (12.2-16.2); Immature Granulocytes % 0.4 %; Mean Corpuscular HGB Conc 32.7 g/dL (31.8-35.4); Mean Corpuscular Hemoglobin 27.3 pg (27.0-31.2); Mean Corpuscular Volume 83.3 fl (81-99); Nucleated Red Blood Cells % 0 %; Platelet Count 152 K/mm3 (142-424); Red Blood Count 3.30 M/mm3 (4.20-5.40); Red Cell Distribution Width-SD 53.4 fL; Total Protein,Serum 7.2 g/dl (6.3-8.2); White Blood Count 8.5 K/mm3 (4.8-10.8)
[2025-06-28 16:35] LABS: Activated Partial Thrombo Time 29.1 seconds (22.8-30.6); INR 1.17 (0.9-1.1); Prothrombin Time 12.8 seconds (10.1-12.5)
[2025-06-28 16:35] LABS: Appearance,Body Fld. Cloudy; Source, Body Fld. Peritoneal Fluid; Volume,Body Fld. 5000 mL
[2025-06-28 16:51] LABS: RBC,Body Fluid 1 cells/uL (< 10 X 10^3); TNC,Body Fluid 96 cells/uL (< 1000)
[2025-06-28 18:52] LABS: Mononuclear WBCs,Body Fluid 88 %; Polynuclear WBC,Body Fluid 12 %
== END 2025-06-28 19:19 | disposition home or self-care (01) ==
PROVIDERS: Emergency Provider Student in an Organized Health Care Education/Training Program; PCP Nurse Practitioner Family
DX: R06.02 Shortness of breath (principal); K72.90 Hepatic failure, unspecified without coma; R18.8 Other ascites; E88.01 Alpha-1-antitrypsin deficiency; F17.210 Nicotine dependence, cigarettes, uncomplicated; E11.9 Type 2 diabetes mellitus without complications; Z79.4 Long term (current) use of insulin
CPT/HCPCS: 49083; 80053; 85025; 85610; 85730; 87070; 87205; 89051; 99284

== ENCOUNTER 2025-07-09 13:17 | Emergency (ER) | payer SELFPAY ==
--- OUTSIDE RECORDS SUMMARY | 2025-06-25 09:00 | XMS_ITS | Encounter Summary ---
Author Organization Healthcare Address [address] [place] [address] Care Team Providers Care Rose Grading Supervisor Name Role Phone Jessica Man SPACE ENGINEER Primary Care Provider [phone] Mary Lim SPACE ENGINEER Unavailable [phone] Reason for Visit * Reason Comments Liver Txp ICE * Consultation (Routine) - Closed Specialty Diagnoses / Procedures Referred By Contac t Referred To Contact Transplant Diagnoses End-stage liver disease (CMS/HCC) Donnie Jordan MD [address] [place] [phone] Phone: tel: fax: [facility] [address] [facility] [address] [place] [phone] Phone: tel: fax: Referral ID Status Reason Start Date Expiration Date V isits Requested Visits Authorized [id number] Closed Specialty Services Required 05/26/2025 11/25/2026 1 1 Encounter Details Date Type Department Care Team (Late st Contact Info) Description 06/25/2025 9:00 AM EDT Office Visit [facility] [address] [place] [address] Orlando Fierro MD [address] [facility] [address] [place] [phone] End-stage liver disease (CMS/HCC) (Primary Dx); Decompensated hepatic cirrhosis (CMS/HCC); Other ascites; Metabolic dysfunction-associate d steatotic liver disease (MASLD); Alpha 1-antitrypsin PiMS phenotype; Tobacco abuse Social History Tobacco Use Types Packs/Day Years Used Date Smoking Tobacco: Former Cigarettes 0.5 30 0 10/14/1992 - 06/10/2025 Smokeless Tobacco: Never Tobacco Cessation:Counseling Given: Not Answered Comments:Smoking for 30+ years Alcohol Use Standard Drinks/Week Comments Never 0 (1 standard drink = 0.6 oz pur e alcohol) PHQ-2 Answer Date Recorded Patient Health Questionnaire-2 Score 1 06/25/2025 PHQ-9 Answer Date Recorded Patient Health Questionnaire-9 Score 12 06/25/2025 PHQ-2A Answer Date Recorded Patient Health Questionnaire-2 Score 0 03/13/2023 Comments No Sex and Gender Information Value Date Recorded Sex Assigned at Female 03/13/2023 4:59 PM EDT Legal Sex Female 6:32 PM EDT Gender Identity Female 03/13/2023 4:59 PM EDT Sexual Orientation Straight 03/13/2023 4: 59 PM EDT documented as of this encounter Last Filed Vital Signs Vital Sign Reading Time Taken Comments Blood Pressure 101/66 06/25/2025 7:17 AM EDT Pulse 86 06/25/2025 7:17 AM EDT Temperature 36.6 C (97.8 F) 06/25/2025 7:17 AM EDT Respiratory Rate 16 06/25/2025 7:17 AM EDT Oxygen Saturation 98% 06/25/2025 7:17 AM EDT Inhaled Oxygen Concentration - - Weight 92.8 kg (204 lb 9.4 oz) 06/25/2025 7:17 A M EDT Height 172.7 cm (5' 8 ) 06/25/2025 7:17 AM EDT Body Mass Index 31.11 06/25/2025 7:17 AM EDT documented in this encounter Functional Status * Over the past 2 weeks, how often have you been bothered by any of the following problems? Question Answer Date of Assessment Author Little interest or pleasure in doing things Not at all 06/25/2025 7:29 AM EDT Meredith Pedroza RN Feeling down, depressed, or hopeless Several days 06/25/2025 7:29 AM Jessie Lowe RN Patient Health Questionnaire-2 Score 1 06/25/2025 7:29 AM Kristie Lowe RN * Question Answer Date of Assessment Author Trouble falling or staying asleep, or sleeping too much Nearly every day 06/25/2025 7:29 AM Meredith Lowe RN Feeling tired or having little energy Nearly every day 06/25/2025 7:29 AM Meredith Lowe RN Poor appetite or overeating Not at all 06/25/2025 7:29 AM Meredith Lowe RN Feeling bad about yourself - or that you are a failure or have let yourself or your family down Several days 06/25/2025 7:29 AM Meredith Lowe RN Trouble concentrating on things, such as reading the newspaper or watching television Several days 06/25/2025 7:29 AM Meredith Lowe RN Moving or speaking so slowly that other people could have noticed? Or the opposite - being so fidgety or restless that you have been moving around a lot more than usual. Nearly every day 06/25/2025 7:29 AM Meredith Lowe RN Thoughts that you would be better off or hurting yourself in some way Not at all 06/25/2025 7:29 AM Meredith Lowe RN Patient Health Questionnaire-9 Score 12 06/25/2025 7:29 AM Meredith Lowe RN * How difficult have these problems made it for you to do your work, take care of things at home, or get along with other people? Answer Date of Assessment Author Somewhat difficult 06/25/2025 7:29 AM Meredith Lwoe RN * How difficult have these problems made it for you to do your work, take care of things at home, or get along with other people? Answer Date of Assessment Author Somewhat difficult 06/25/2025 7:29 AM Meredith Lowe RN documented as of this encounter Miscellaneous Notes * Clinician Note - Edil Workman - 06/25/2025 9:00 AM EDT I visited Luz and her , Houston, to introduce foundry technician support and establish rapport. I introduced the role of the foundry technician on the interdisciplinary team and made them aware of the ongoing availability of foundry technician support. Luz and Houston expressed receptivity to support but voicedno needs at this time. I will remain available to follow up with Luz and provide support as desired. * Progress Notes - Courtney Mix - 06/25/2025 9:00 AM EDT Received critical value of Glucose 50. Relayed to Loida Duenas. * Progress Notes - Orlando Fierro MD - 06/25/2025 9:00 AM EDT Subjective Patient ID: Luz Theodore is a 55 y.o. female. Initial transplant consultation. Referring Provider: Mary Lim History of Present Illness Patient is a 55 year old female with a past medical history of decompensated cirrhosis MASH/A1AT deficiency, Type 2 DM . Patient presents today for initial transplant consultation. She was diagnosed with cirrhosis around 2014 or 2015, based on scan and blood work results. Furthertesting revealed the cause to be alpha-1 antitrypsin deficiency, not alcohol consumption. Her course has been further decompensated by ascites and fluid overload for the past 5 months, requiring weekly paracentesis. Initially, 6 to 8 liters of fluid were removed, but recently only 3 to 4 liters have been extracted. She has had to visit the emergency room several times due to her insurance coverage. She plans to switch back to her regular insurance on 07/14/2025, which will allow her to return to [facility] for her paracentesis. She has been lasix 80 mg in the and spironolactone 50 mg, but the dosage has not been increased. She was previously on hydrochlorothiazide, but it was discontinued. Her current medications include insulin, Lasix, spironolactone, and omeprazole. She has not taken ibuprofen for some time. She underwent an endoscopy and colonoscopy about a year ago, during which her esophagus was dilated. Also has a small umbilical hernia. She experiences mild confusion and difficulty concentrating, occasionally leading to disorientation. She takes lactulose as needed and has one small bowel movement per day. She presents today with her . Says that she continues to require weekly paracentesis with 6-8 L drained per session. Would like to know if she would qualify for OLT or not. She has a history of two small TIAs but has never undergone any surgeries or stent placements. She had an open cholecystectomy in 1991 due to gallstones, during which 72 stones were removed. She quitsmoking cigarettes in May 2025 and has been vaping since then. Patient denies any complaints of nausea, vomiting, diarrhea, melena, hematochezia, hematemesis, fever, chills, rigors, jaundice, pruritus. PAST MEDICAL HISTORY Decompensated cirrhosis Portal HTN DM type 2 A1AT deficiency VI not on home O2 Bipolar disorder with prior suicide attempt 06/2021 SURGICAL HISTORY Open cholecystectomy SOCIAL HISTORY No hx of alcohol use. She quit smoking cigarettes in May and has been vaping since then. She reports no alcohol or drug use. 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 FAMILY HISTORY She has one cousin who had alpha-1 antitrypsin deficiency and is now due to other health issues. MEDICATIONS Current: Insulin, Lasix, spironolactone, omeprazole, lactulose (as needed) Discontinued: Hydrochlorothiazide The following portions of the chart were reviewed this encounter and updated as appropriate: Review of Systems 14 point ROS negative except for HPI Objective Visit Vitals BP 101/66 Pulse 86 Temp 36.6 ??C (97.8 ??F) Ht 1.727 m (5' 8 ) Wt 92.8 kg (204 lb 9.4 oz) SpO2 98% BMI 31.11 kg/m?? Physical Exam Current Medications[1] Laboratory values CBC: WBC Count Date/Time Value Ref Range Status 06/25/2025 07:08 AM 10.55 (H) 3.70 - 10.30 10*3/uL Final 06/01/2014 04:27 PM 11.2 (H) 3.7 - 10.3 k/uL Final HGB Date/Time Value Ref Range Status 06/25/2025 07:08 AM 9.2 (L) 11.2 - 15.7 g/dL Final 06/01/2014 04:27 PM 14.7 11.2 - 15.7 g/dL Final HCT Date/Time Value Ref Range Status 06/25/2025 07:08 AM 27.9 (L) 34.0 - 45.0 % Final 06/01/2014 04:27 PM 44.0 34 - 45 % Final Platelet Count Date/Time Value Ref Range Status 06/25/2025 07:08 AM 173 155 - 369 10*3/uL Final 06/01/2014 04:27 PM 222 155 - 369 k/uL Final CMP: Sodium, Plasma Date/Time Value Ref Range Status 06/25/2025 07:08 AM 134 (L) 136 - 145 mmol/L Final 06/01/2014 04:27 PM 138 136 - 145 mmol/L Final External Sodium Date/Time Value Ref Range Status 03/05/2025 12:00 AM 135 mmol/L Final Potassium, Plasma Date/Time Value Ref Range Status 06/25/2025 07:08 AM 3.6 3.6 - 4.9 mmol/L Final 06/01/2014 04:27 PM 4.1 3.7 - 4.8 mmol/L Final Chloride, Plasma Date/Time Value Ref Range Status 06/25/2025 07:08 AM 101 97 - 107 mmol/L Final 06/01/2014 04:27 PM 101 101 - 108 mmol/L Final CO2, Plasma Date/Time Value Ref Range Status 06/25/2025 07:08 AM 22 22 - 29 mmol/L Final 06/01/2014 04:27 PM 26 22 - 29 mmol/L Final BUN, Plasma Date/Time Value Ref Range Status 06/25/2025 07:08 AM 33 (H) 7 - 21 mg/dL Final 06/01/2014 04:27 PM 12 7 - 21 mg/dL Final Creatinine, Plasma Date/Time Value Ref Range Status 06/25/2025 07:08 AM 1.30 (H) 0.60 - 1.10 mg/dL Final 06/01/2014 04:27 PM 0.82 0.60 - 1.10 mg/dL Final External Creatinine Blood Date/Time Value Ref Range Status 03/05/2025 12:00 AM 1.1 mg/dL Final Total Calcium, Plasma Date/Time Value Ref Range Status 06/25/2025 07:08 AM 8.8 (L) 8.9 - 10.2 mg/dL Final Total Bilirubin, Plasma Date/Time Value Ref Range Status 06/25/2025 07:08 AM 2.1 (H) 0.2 - 1.1 mg/dL Final 06/01/2014 04:27 PM 0.3 0.2 - 1.1 mg/dL Final External Bilirubin Total Date/Time Value Ref Range Status 03/05/2025 12:00 AM 1.6 mg/dL Final Alkaline Phosphatase, Plasma Date/Time Value Ref Range Status 06/25/2025 07:08 AM 158 (H) 35 - 104 U/L Final 06/01/2014 04:27 PM 79 35 - 104 U/L Final ALT, Plasma Date/Time Value Ref Range Status 06/25/2025 07:08 AM 30 10 - 35 U/L Final 06/01/2014 04:27 PM 24 8 - 33 U/L Final AST, Plasma Date/Time Value Ref Range Status 06/25/2025 07:08 AM 76 (H) 10 - 35 U/L Final 06/01/2014 04:27 PM 22 11 - 32 U/L Final Glucose, Plasma Date/Time Value Ref Range Status 06/25/2025 07:08 AM 50 (LL) 74 - 99 mg/dL Final 06/01/2014 04:27 PM 92 74 - 99 mg/dL Final Imaging/Radiology No images are attached to the encounter or orders placed in the encounter. 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 Decompensated Cirrhosis - MASH/A1AT def MELD 3.0: 18 at 06/25/2025 7:08 AM MELD-Na: 17 at 06/25/2025 7:08 AM Calculated from: Serum Creatinine: 1.3 mg/dL at 06/25/2025 7:08 AM Serum Sodium: 134 mmol/L at 06/25/2025 7:08 AM Total Bilirubin: 2.1 mg/dL at 06/25/2025 7:08 AM Serum Albumin: 3.2 g/dL at 06/25/2025 7:08 AM INR(ratio): 1.3 at 06/25/2025 7:08 AM Age at listing (hypothetical): 55 years Sex: Female at 06/25/2025 7:08 AM Can start std eval with TIPS eval for now. Complications of liver disease include: Ascites History of: A1AT def, Cirrhosis, VI, PTSD , bipolar disorder. Chemical dependency: None Counseled on the nature, symptoms & signs, and complications of cirrhosis. Advised to avoid NSAIDS, can take acetaminophen but not to exceed 2000 mg a day. # Ascites / pedal edema: LVP: Yes SBP: NEver ANH: never Diuretics - currently on Furosemide 80 mg /day and spironolactone 50 mg/day - change diuretics to Bumex 1.5 mg/day and spironolactone 100 mg/day Repeat labs in 1 week. Suggest strict 2 gm /day salt diet check for BUN /creatinine and electrolytes with labs # Hepatic Encephalopathy: Not an issue right now. # Esophageal varices screening- Last EGD showed. Mild portal hypertensive gastropathy, no esophageal varices. Educated on S/S of GI bleed and advised to go to ER if any occurs. # HCC surveillance: CT abdomen 02/12/2025: Cirrhosis with large vol ascites. Severe degenerative disc disase L5-S1. AFP - WNL Continue Q6 monthly surveillance protocol. 2. A1AT def PiMS phenotype. Will get PFTs as part of eval. Has also been diagnosed with VI as well? Needs CT chest with eval. 3. Type 2 DM On Insulin glargine 34 units at bedtime, 12 unit TID premeal and SSI. Crestor 20 mg/day 4. PSTD 5. Biploar disease Has hx of suicide attempt in 2020. Will need SW clearance.-- 5. Vaping Tobacco cessation counseling done. 6. Nutritional counseling. Counseled on the importance of increasing protein intake, advised to get 1.2-1.5 gram/kg a day. Advsied to take late night snack. Health Maintenance: Check immunization for hepatitis A and B Colonoscopy 06/2019: 6 mm polyp in cecum with 2 diminutive 3-4 mm polyps in the descending colon. RTC in 6 weeks. A total of 80 minutes was spent during this visit for care coordination, including review of medical records and previous notes, obtaining history and physical exam, ordering tests, changes in medications, counseling patient about cirrhosis, natural history,prognosis, potential complications of cirrhosis and management of complications of cirrhosis, indications/contraindications for liver transplant, benefits/risks of transplant including process of transplant evaluation, concept of MELD score, instructions for management, consult with peers and clinical documentation in the patient's clinic note [1] Current Outpatient Medications: bisacodyl (Dulcolax) 10 MG suppository, Insert 1 suppository into the rectum 1 time as needed for constipation., Disp: , Rfl: DULoxetine (Cymbalta) [address] capsule, Take 2 capsules by mouth daily., Disp: , Rfl: fenofibrate (Tricor) 145 MG tablet, Take 1 tablet by mouth daily., Disp: , Rfl: furosemide (Lasix) 40 MG tablet, Take 2 tablets by mouth daily., Disp: , Rfl: gabapentin (Neurontin) 800 MG tablet, Take 0.5 tablets by mouth as needed., Disp: , Rfl: glucagon (Baqsimi Two Pack) 3 MG/DOSE powder Nasal Powder, Administer 3 mg into affected nostril(s)1 (one) time if needed (severe hypoglycemia)., Disp: 2 each, Rfl: 3 hydroCHLOROthiazide (Microzide) 12.5 MG capsule, Take 1 capsule by mouth every morning., Disp: , Rfl: hydrOXYzine HCl (Atarax) 25 MG tablet, Take 1 tablet by mouth daily., Disp: , Rfl: insulin glargine-yfgn (Semglee) 100 UNIT/ML injection pen, Inject subcutaneous 30 units in PM plus titration as advised, max dose 50u/day (Patient taking differently: Inject 34 Units under the skin nightly. Inject subcutaneous 30 units in PM plus titration as advised, max dose 50u/day), Disp: 45 mL, Rfl: 3 Insulin Pen Needle (BD Pen Needle Jazlyn U/F) 32G X 4 MM misc, 4x/day as directed, Disp: 360 each, Rfl: 3 lactulose (Enulose) 10 GM/15ML solution oral solution, Take 15 mL by mouth as needed., Disp: , Rfl: Linzess 290 MCG capsule, Take 1 capsule by mouth as needed., Disp: , Rfl: Nicotine Step 2 14 MG/24HR patch, Place 1 patch on the skin 1 (one) time each day at the same time., Disp: , Rfl: NovoLOG FLEXPEN 100 UNIT/ML injection pen, Inject 12 units before meals plus correction 1:30>150. MDD: 60 units., Disp: 55 mL, Rfl: 3 omeprazole (PriLOSEC) [address] capsule, Take 1 capsule by mouth daily., Disp: , Rfl: OneTouch Ultra Test test strip, USE TO CHECK BLOOD SUGAR 4 TIMES EACH DAY, Disp: , Rfl: rOPINIRole (Requip) 1 MG tablet, Take 2 tablets by mouth nightly., Disp: , Rfl: rosuvastatin (Crestor) 20 MG tablet, Take 1 tablet by mouth every morning., Disp: , Rfl: spironolactone (Aldactone) 50 MG tablet, Take 1 tablet by mouth daily., Disp: , Rfl: Continuous Glucose Asbestos Handler (FreeStyle Madan 3 [place]) device, 1 Device 6 times a day. Use to checkblood glucose regularly (Patient not taking: Reported on 06/25/2025), Disp: 1 each, Rfl: 0 Continuous Glucose Sensor (FreeStyle Madan 3 Plus Sensor) misc, 1 sensor every 15 days. (Patient not taking: Reported on 06/25/2025), Disp: 2 each, Rfl: 5 cyclobenzaprine (Flexeril) 10 MG tablet, , Disp: , Rfl: diazePAM (Valium) 5 MG tablet, , Disp: , Rfl: famotidine (Pepcid) 40 MG tablet, take 1 tablet 1 time each day at bedtime (Patient not taking: Reported on 06/25/2025), Disp: , Rfl: ibuprofen 800 MG tablet, , Disp: , Rfl: lamoTRIgine (LaMICtal) 150 MG tablet, , Disp: , Rfl: nitroglycerin (Nitrostat) 0.4 MG SL tablet, , Disp: , Rfl: traZODone (Desyrel) 50 MG tablet, , Disp: , Rfl: documented in this encounter Plan of Treatment Upcoming Encounters Date Type Department Care Team (Late st Contact Info) Description 07/22/2025 3:40 PM EDT Office Visit [facility] [address] [place] [address] Silvia Lewis, SPACE ENGINEER [address] [place] [address] 08/04/2025 8:30 AM EDT Clinical Support [facility] [address] [place] [address] 08/04/2025 9:00 AM EDT Appointment [facility] [address] [place] [address] 08/04/2025 9:45 AM EDT Appointment [facility] [address] [place] [address] 08/04/2025 10:00 AM EDT Clinical Support [facility] [address] [facility] [address] [place] [address] [facility] - CLINICAL NUTRITION [address] [place] [address] 08/04/2025 11:00 AM EDT Office Visit [facility] [address] [place] [address] Lily Dickinson MD [address] [place] [address] 08/04/2025 11:30 AM EDT Social Work [facility] [address] [place] [address] [place] [address] 08/04/2025 2:30 PM EDT Appointment [facility] [address] [place] [address] 08/04/2025 3:00 PM EDT Appointment [facility] Pulmonary Function Testing [address] [place] [address] 11/02/2025 11:00 AM EST Office Visit [facility] [address] [place] [address] Raman Chang, ZARINA [address] [place] [address] documented as of this encounter Visit Diagnoses Diagnosis End-stage liver disease (CMS/HCC)- Primary Other sequelae of chronic liver disease Decompensated hepatic cirrhosis (CMS/HCC) Other ascites 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 Tobacco abuse Tobacco use disorder documented in this encounter Additional Health Concerns Assessment Noted Time PHQ-9 Depression Total Score: 025 7:29 AM EDT A fall risk assessment has been complete d for the patient 06/25/2025 7:29 AM EDT A Body Mass Index follow-up plan has been documented for the patient 06/26/2025 4:32 PM EDT documented as of this encounter Care Teams Rose Grading Supervisor Relationship Specialty Start Date End Date Jessica Man APRN [address] [place] [id number] PCP - General 02/24/21 Mary Lim APRN [address] [place] [id number] Referring Physician Gastroenterology 05/11/25 documented as of this encounter
[2025-07-09] VITALS (12 sets, daily range): BP systolic 98–137; BP diastolic 56–72; PULSE 87–97; RESP 16; TEMP 36.9; O2SAT 96–99; BMI 31.0
--- OUTSIDE RECORDS SUMMARY | 2025-07-09 15:04 | XMS_ITS | Clinical Summary ---
Author Organization Healthcare Address [address] [place] [address] Care Team Providers Care Electronic Musical Instrument Repairer Name Role Phone Jessica Man COMMERCIAL FRONT LOAD OPERATOR Primary Care Provider Mary Lim COMMERCIAL FRONT LOAD OPERATOR Unavailable [phone] Allergies Active Allergy Reactions Criticality Noted Date [...] Take 1 capsule by mouth daily. 11/19/19 23 Active rosuvastatin (Crestor) 20 MG tablet Take 1 tablet by mouth every morning. Active traZODone (Desyrel) 50 MG tablet 11/14/19 23 Active glucagon (Baqsimi Two Pack) 3 MG/DOSE [...] 4x/day as directed 360 each 3 04/06/20 25 Active insulin glargine-yfgn (Semglee) 100 UNIT/ML injection pen Inject subcutaneous 30 units in PM plus titration as advised, max dose 50u/day 45 mL 3 06/04/20 25 Active Additional Information Patient taking differently: 34 [...] hyperglycemia, without long-term current use of insulin 1 sensor every 15 days. 2 each 5 06/10/20 Active Additional Information Patient not taking.Reason: insurance problems, Reported on 06/25/2025 Continuous Glucose Vocational Examiner (FreeStyle Madan 3 [place]) deviceIndicatio ns:Type 2 diabetes mellitus with hyperglycemia, without long-term current use of insulin 1 Device 6 times a day. Use [...] n) Continuous Glucose Sensor (Dexcom G7 Sensor) mis 1 each every 10 (ten) days. 9 each 3 09/21/20 24 025 Discontin ued(Formu owen change) furosemide (Lasix) 40 MG tablet Take 2 tablets by mouth daily. 025 Discontin ued(Cost of medicatio n) spironolactone (Aldactone) 50 MG tablet Take 1 tablet by mouth daily. 025 Discontin ued(Cost of medicatio n) hydroCHLOROthia zide (Microzide) 12.5 MG capsule Take [...] mellitus 09/17/2018 Hyperlipidemia 09/17/2018 Secondary hypertension 09/17/2018 Lower back pain 06/01/2014 Resolved Problems Problem Noted Date Diagnosed Date Resolved Date Chronic osteoarthritis 08/03/201407/04 Arthritis 06/01/2014 07/04/2025 Encounters Date Type Department Care Team Description 07/02/2025 Travel 07/01/2025 Telephone [facility] [address] [address] Shruti Scott 06/30/2025 Telephone [facility] [address] [address] Shruti Scott 06/28/2025 Telephone [facility] [address] [address] Jaci Duenas, RN 06/28/2025 Orders Only [facility] [address] [address] Jaci Duenas, RN 06/25/2025 9:00 AM EDT Office Visit [facility] [address] [address] rOlando Fierro MD End-stage liver disease (CMS/HCC) (Primary Dx); Decompensated hepatic cirrhosis (CMS/HCC); Other ascites; Metabolic dysfunction-associate d steatotic liver disease (MASLD); Alpha 1-antitrypsin PiMS phenotype; Tobacco abuse 06/25/2025 Travel 06/24/2025 Travel 06/23/2025 Travel 06/23/2025 Telephone [facility] [address] [phone] Edda Méndez 06/23/2025 Telephone [facility] [address] [address] Edda Méndez Appointment (Confirmation and reminders) 06/16/2025 Telephone [facility] [address] [place] [address] [facility], Physician, 06/09/2025 Telephone [facility] [address] [place] [address] Silvia Lewis APRN Prior-authorization/i nsurance Verification 06/04/2025 Refill [facility] [address] [place] [address] Jessica Aranda 06/04/2025 Telephone [facility] [address] [place] [address] Silvia Lewis APRN 06/02/2025 Telephone [facility] [address] [place] [address] Silvia Lewis, NGUYỄN Prior-authorization/i nsurance Verification 06/01/2025 Telephone [facility] [place] [phone] [address] Edda Méndez 05/26/2025 Telephone [facility] [place] [address] [address] Edda Méndez Appointment (Scheduling) 05/25/2025 Orders Only External Location [address] [place] [address] Provider, External 05/24/2025 Telephone [facility] [place] [address] [address] Edda Méndez 05/17/2025 Telephone [facility] [place] [address] [phone] Edda Méndez Referral - Liver Txp 05/11/2025 Telephone [facility] [place] [address] [phone] Edda Méndez Referral - Liver Txp from Last 3 Months Immunizations Immunization Administration Dates Next Due Hep A, Adult 06/30/2019,10/02/2018 Influenza, injectable, quadrivalent 07/13/2020,1 11/17/2018 Influenza, injectable, quadrivalent, preservativ e free 09/03/2023,09/19/2022 Influenza, seasonal, injectable, preservative fr ee 07/14/2024 Pneumococcal Polysaccharide PPV23 11/26/2018 Family History Medical [...] EDT Height 172.7 cm (5' 8 ) 07/02/2025 12:11 PM EDT Body Mass Index 31.11 06/25/2025 7:17 AM EDT Plan of Treatment Upcoming Encounters Date Type Department Care Team (Late st Contact Info) Description 07/22/2025 3:40 PM EDT Office Visit [facility] [address] [place] [address] Silvia Lewis, COMMERCIAL FRONT LOAD OPERATOR [address] [place] [address] 08/04/2025 8:30 AM EDT Clinical Support [facility] [address] [facility] [address] [place] [address] 08/04/2025 9:00 AM EDT Appointment [facility] [address] [place] [address] 08/04/2025 9:45 AM EDT Appointment [facility] [address] 1[address] [place] [address] 08/04/2025 10:00 AM EDT Clinical Support [facility] [address] [facility] [address] [place] [phone] [address] [facility] - CLINICAL NUTRITION [address] [place] [address] 08/04/2025 11:00 AM EDT Office Visit [facility] [address] [facility] [address] [place] [address] Lily Dickinson MD [address] [place] [phone] 08/04/2025 11:30 AM EDT Social Work [facility] [address] [place] [address] [place] [address] 08/04/2025 2:30 PM EDT Appointment [facility] [address] [place] [address] 08/04/2025 3:00 PM EDT Appointment [facility] Pulmonary Function Testing [address] [place] [phone] 11/02/2025 11:00 AM EST Office Visit [facility] [address] [place] [address] Raman Chang, PA [address] [place] [address] Health Maintenance Due Date Last Done Comments [...] 02/16/2020 [facility]-Zoster Vaccines (1 of 2) 02/16/2020 [id number] Vaccine (2 - season) 2025 09/23/2023 [facility]-Influenza [...] Procedure Name Priority Date/Time Associated Diagnosis Comments COMPREHENSIVE URINE DRUG SCREENING,QUALITATIVE ASSAY, >= 27 DRUG CLASSES Routine 06/25/2025 7:32 AM EDT End-stage liver disease (CMS/HCC) ALCOHOL, URINE Routine 06/25/2025 7:32 AM EDT [...] 7:08 AM EDT End-stage liver disease (CMS/HCC) NICOTINE AND COTININE METABOLITE, SERUM, QUANTITATIVE Routine 06/25/2025 7:08 AM EDT End-stage [...] Urine Negative Negative 06/25/2025 11:46 AM EDT [facility] Urine Urine specimen obtained by clean catch procedure / Unknown Non-blood Collection / Unknown 06/25/2025 7:32 AM EDT 06/25/2025 8:34 AM EDT Narrative [facility] - 06/25/2025 11:46 AM EDT The correlation between urine and serum ethanol concentration is highly variable. Test performed by Gas Chromatography at the [facility]. This test was developed and its performance characteristics determined by [facility]. It has not been cleared or approved by the FDA.The laboratory is regulated under CLIA as qualified to perform high-complexity testing. This test is used for clinical purposes only. us Donnie Jordan MD LAB URINE ORDERABLES Final Resul t [facility] [address] [place] [address] * (ABNORMAL) Comprehensive Urine Drug Screening, Qualitative Assay, >= 27 Drug Classes (57:32 AM EDT) Acetaminophen Negative Negative 06/30/2025 11:34 AM EDT [facility] Alprazolam Negative Negative 06/30/2025 11:34 AM EDT [facility] Amantadine Negative Negative 06/30/2025 11:34 AM EDT [facility] Amitriptyline Negative Negative 06/30/2025 11:34 AM EDT [facility] Amphetamine Negative Negative 06/30/2025 11:34 AM EDT [facility] Atenolol Negative Negative 06/30/2025 11:34 AM EDT [facility] Benzoylecgonine Negative Negative 11:34 AM EDT [facility] Bisoprolol Negative Negative 06/30/2025 11:34 AM EDT [facility] Bupropion Negative Negative 06/30/2025 11:34 AM EDT [facility] Butalbital Negative Negative 06/30/2025 11:34 AM EDT [facility] Carbamazepine Negative Negative 06/30/2025 11:34 AM EDT [facility] Carisoprodol Negative Negative 06/30/2025 11:34 AM EDT [facility] Chlorpheniramine Negative Negative 06/30/20 11:34 AM EDT [facility] Citalopram Negative Negative 06/30/2025 11:34 AM EDT [facility] Clindamycin Negative Negative 06/30/2025 11:34 AM EDT [facility] Clonidine Negative Negative 06/30/2025 11:34 AM EDT [facility] Clopidogrel / Ticlopidine Negative Negative 06/30/2025 11:34 AM EDT [facility] Cocaethylene Negative Negative 06/30/2025 11:34 AM EDT [facility] Cocaine Negative Negative 06/30/2025 11:34 AM EDT [facility] Codeine Negative Negative 06/30/2025 11:34 AM EDT [facility] Cyclobenzaprine Negative Negative 11:34 AM EDT [facility] Desvenlafaxine Negative Negative 06/30/2025 11:34 AM EDT [facility] Dextromethorphan Negative Negative 06/30/20 11:34 AM EDT [facility] Diazepam Negative Negative 06/30/2025 11:34 AM EDT [facility] Diltiazem Negative Negative 06/30/2025 11:34 AM EDT [facility] Diphenhydramine Negative Negative 11:34 AM EDT [facility] Doxepine Negative Negative 06/30/2025 11:34 AM EDT [facility] Doxylamine Negative Negative 06/30/2025 11:34 AM EDT [facility] EDDP-Methadone metabolite Negative Negative 06/30/2025 11:34 AM EDT [facility] Fentanyl Negative Negative 06/30/2025 11:34 AM EDT [facility] Fluconazole Negative Negative 06/30/2025 11:34 AM EDT [facility] Fluoxetine Negative Negative 06/30/2025 11:34 AM EDT [facility] Guaifenesin Negative Negative 06/30/2025 11:34 AM EDT [facility] Haloperidol Negative Negative 06/30/2025 11:34 AM EDT [facility] Heroin/6-TERRY Negative Negative 06/30/2025 11:34 AM EDT [facility] Hydrocodone Negative Negative 06/30/2025 11:34 AM EDT [facility] Hydroxyzine / Cetirizine metabolite Positive(A) Negative 06/30/2025 11:34 AM EDT [facility] Ibuprofen Negative Negative 06/30/2025 11:34 AM EDT [facility] Imipramine Negative Negative 06/30/2025 11:34 AM EDT [facility] Ketamine Negative Negative 06/30/2025 11:34 AM EDT [facility] Labetolol Negative Negative 06/30/2025 11:34 AM EDT [facility] Lamotrigine Negative Negative 06/30/2025 11:34 AM EDT [facility] Levetiracetam Negative Negative 06/30/2025 11:34 AM EDT [facility] Lidocaine Positive(A) Negative 06/30/2025 11:34 AM EDT [facility] MDA Negative Negative 06/30/2025 11:34 AM EDT [facility] MDMA Negative Negative 06/30/2025 11:34 AM EDT [facility] Memantine Negative Negative 06/30/2025 11:34 AM EDT [facility] Meperidine Negative Negative 06/30/2025 11:34 AM EDT [facility] Meprobamate Negative Negative 06/30/2025 11:34 AM EDT [facility] Metaxalone Negative Negative 06/30/2025 11:34 AM EDT [facility] Methamphetamine Negative Negative 11:34 AM EDT [facility] Methocarbamol Negative Negative 06/30/2025 11:34 AM EDT [facility] Methylecgonine Negative Negative 06/30/2025 11:34 AM EDT [facility] Metoclopramide Negative Negative 06/30/2025 11:34 AM EDT [facility] Metoprolol Negative Negative 06/30/2025 11:34 AM EDT [facility] Metronidazole Negative Negative 06/30/2025 11:34 AM EDT [facility] Midazolam Negative Negative 06/30/2025 11:34 AM EDT [facility] Midazolam Metabolite Negative Negative 06/30/2025 11:34 AM EDT [facility] Mirtazapine Negative Negative 06/30/2025 11:34 AM EDT [facility] Misc Test Result Negative Negative 06/30/20 11:34 AM EDT [facility] Naproxen Negative Negative 06/30/2025 11:34 AM EDT [facility] Nefazodone Negative Negative 06/30/2025 11:34 AM EDT [facility] Norfentanyl Negative Negative 06/30/2025 11:34 AM EDT [facility] Nortriptyline Negative Negative 06/30/2025 11:34 AM EDT [facility] Ordanstron Negative Negative 06/30/2025 11:34 AM EDT [facility] Oxcarbazepine Negative Negative 06/30/2025 11:34 AM EDT [facility] Oxycodone Negative Negative 06/30/2025 11:34 AM EDT [facility] Paroxethine Negative Negative 06/30/2025 11:34 AM EDT [facility] Phenobarbital Negative Negative 06/30/2025 11:34 AM EDT [facility] Phentermine Negative Negative 06/30/2025 11:34 AM EDT [facility] Phenytoin Negative Negative 06/30/2025 11:34 AM EDT [facility] Primidone Negative Negative 06/30/2025 11:34 AM EDT [facility] Promethazine Negative Negative 06/30/2025 11:34 AM EDT [facility] Propofol Negative Negative 06/30/2025 11:34 AM EDT [facility] Propranolol Negative Negative 06/30/2025 11:34 AM EDT [facility] Quetiapine Negative Negative 06/30/2025 11:34 AM EDT [facility] Quinine Negative Negative 06/30/2025 11:34 AM EDT [facility] Rantidine Negative Negative 06/30/2025 11:34 AM EDT [facility] Sertraline Negative Negative 06/30/2025 11:34 AM EDT [facility] Spironolactone Negative Negative 06/30/2025 11:34 AM EDT [facility] Tizanidine Negative Negative 06/30/2025 11:34 AM EDT [facility] Topiramate Negative Negative 06/30/2025 11:34 AM EDT [facility] Tramadol Negative Negative 06/30/2025 11:34 AM EDT [facility] Trazadone/ Trazadone metabolite Negative Negative 06/30/2025 11:34 AM EDT [facility] Trimethoprim Negative Negative 06/30/2025 11:34 AM EDT [facility] Valproic Acid Negative Negative 06/30/2025 11:34 AM EDT [facility] Venlafaxine Negative Negative 06/30/2025 11:34 AM EDT [facility] Verapamil Negative Negative 06/30/2025 11:34 AM EDT [facility] Zolpidem Negative Negative 06/30/2025 11:34 AM EDT [facility] Xylazine Negative Negative 06/30/2025 11:34 AM EDT [facility] Urine Urine specimen obtained by clean catch procedure / Unknown Non-blood Collection / Unknown 06/25/2025 7:32 AM EDT 06/25/2025 8:34 AM EDT Donnie Jordan MD LAB URINE ORDERABLES Final Resul t Performing Organization Address [facility] Co de Phone Number [facility] [address] [place] [address] * HEPATITIS B SURFACE ANTIBODY, QUANTITATIVE (06/25/2025 7:08 AM EDT) Hepatitis B Surface Antibody, Quantitative <8.00 NonReactiv e: <8, Grayzone: 8 - <12, Reactive: >= 12 mIU/mL 06/25/2025 9:15 AM EDT [facility] Comment: Nonreactive. Individual is considered not immune to HBV infection. Blood Venous blood specimen / Unknown Venipuncture / Unknown 06/25/2025 7:08 AM EDT 06/25/2025 7:47 AM EDT Donnie Jordan MD LAB BLOOD ORDERABLES Final Resul t [facility] [address] [place] [address] * Alpha fetoprotein, serum (06/25/2025 7:08 AM EDT) Alpha Fetoprotein, Serum <2.3 <10.0 ng/mL 06/25/2025 8:23 AM EDT [facility] Blood Venous blood specimen / Unknown Venipuncture / Unknown 06/25/2025 7:08 AM EDT 06/25/2025 7:47 AM EDT Narrative [facility] - 06/25/2025 8:23 AM EDT Performed by José Manuel electrochemiluminescent immunoassay which is traceable to the 1st [facility] IRP WHO Reference standard 72/255. Results obtained with different test methods or kits cannot be used interchangeably. us Donnie Jordan MD LAB BLOOD ORDERABLES Final Resul t Performing Organization Address City/[facility]/ZIP Co de Phone Number [facility] [address] [place] [address] * (ABNORMAL) Hepatitis A Antibody IgG (06/25/2025 7:08 AM EDT) Hepatitis A Antibody IgG Positive(A ) Negative 06/25/2025 9:15 AM EDT [facility] Blood Venous blood specimen / Unknown Venipuncture / Unknown 06/25/2025 7:08 AM EDT 06/25/2025 7:47 AM EDT us Donnie Jordan MD LAB BLOOD ORDERABLES Final Resul t Performing Organization Address City/[facility]/ZIP Co de Phone Number [facility] [address] [place] [address] * Hepatitis C Antibody (06/25/2025 7:08 AM EDT) Hepatitis C Antibody Negative Negative 06/25/2025 8:31 AM EDT [facility] Blood Venous blood specimen / Unknown Venipuncture / Unknown 06/25/2025 7:08 AM EDT 06/25/2025 7:47 AM EDT us Donnie Jordan MD LAB BLOOD ORDERABLES Final Resul t Performing Organization Address City/[facility]/ZIP Co de Phone Number [facility] [address] [place] [address] * (ABNORMAL) Nicotine Cotinine Metabolite (06/25/2025 7:08 AM EDT) NICOTINE <5 <5 ng/mL 06/29/2025 11:14 AM EDT [facility] Cotinine 98(H) <5 ng/mL 06/29/2025 11:14 AM EDT [facility] Blood Venous blood specimen / Unknown Venipuncture / Unknown 06/25/2025 7:08 AM EDT 06/25/2025 7:47 AM EDT Narrative [facility] - 06/29/2025 11:14 AM EDT Testing performed by LC-MS/MS at the [facility]. This test was developed and its performance characteristics determined by [facility]. This assay has not been cleared by the FDA. The laboratory is regulated under CLIA as qualified to perform high-complexity testing. This test is used for clinical purposes. us Donnie Jordan MD LAB BLOOD ORDERABLES Final Resul t Performing Organization Address City/[facility]/ZIP Co de Phone Number [facility] [address] [place] [address] * ABO/Rh (06/25/2025 7:08 AM EDT) ABO/Rh O Positive 06/25/2025 7:04 AM EDT [facility] Blood Venous blood specimen / Unknown Venipuncture / Unknown 06/25/2025 7:08 AM EDT 06/25/2025 7:45 AM EDT us Donnie Jordan MD LAB BLOOD BANK TEST ORDERABLES F inal Result Performing Organization Address [facility] Co de Phone Number BLOOD BANK [address] [place] [address], * Hepatitis B Surface Antigen (06/25/2025 7:08 AM EDT) Hepatitis B Surf Antigen Negative Negative 06/25/2025 9:15 AM EDT [facility] Blood Venous blood specimen / Unknown Venipuncture / Unknown 06/25/2025 7:08 AM EDT 06/25/2025 7:47 AM EDT us Donnie Jordan MD LAB BLOOD ORDERABLES Final Resul t Performing Organization Address City/[facility]/ZIP Co de Phone Number [facility] [address] [place] [address] * (ABNORMAL) Protime-INR (06/25/2025 7:08 AM EDT) Prothrombin Time 17.0(H) 12.0 - 14.3 sec LAB COAGULATION METHOD 06/25/2025 8:07 AM EDT [facility] INR 1.3(H) 0.9 - 1.1 LAB COAGULATION METHOD 06/25/2025 8:07 AM EDT [facility] Blood Venous blood specimen / Unknown Venipuncture / Unknown 06/25/2025 7:08 AM EDT 06/25/2025 7:47 AM EDT Narrative [facility] - 06/25/2025 8:07 AM EDT OPTIMAL INR RANGES FOR PATIENT ON ORAL ANTICOAGULANT THERAPY Prevention of venous thromboembolism INR 2.0 to 3.0 In patients with heart disease: Atrial fibrillation INR 2.0 to 3.0 Valvular heart disease INR 2.0 to 3.0 Tissue heart valves INR 2.0 to 3.0 Mechanical prosthetic valves INR 2.5 to 3.5 Prevention of recurrent HI INR 2.5 to 3.5 us Donnie Jordan MD LAB BLOOD ORDERABLES Final Resul t [facility] [address] [place] [address] * (ABNORMAL) Hemogram (CBC) (06/25/2025 7:08 AM EDT) WBC Count 10.55(H) 3.70 - 10.30 10*3/uL LAB HEMATOLOGY METHOD 06/25/2025 8:04 AM EDT [facility] RBC Count 3.34(L) 3.90 - 5.20 10*6/uL LAB HEMATOLOGY METHOD 06/25/2025 8:04 AM EDT [facility] HGB 9.2(L) 11.2 - 15.7 g/dL LAB HEMATOLOGY METHOD 06/25/2025 8:04 AM EDT [facility] HCT 27.9(L) 34.0 - 45.0 % LAB HEMATOLOGY METHOD 06/25/2025 8:04 AM EDT [facility] Platelet Count 173 155 - 369 10*3/uL LAB HEMATOLOGY METHOD 06/25/2025 8:04 AM EDT [facility] MCV 84 79 - 98 fL LAB HEMATOLOGY METHOD 06/25/2025 8:04 AM EDT [facility] MCH 27.5 26.0 - 32.0 pg LAB HEMATOLOGY METHOD 06/25/2025 8:04 AM EDT [facility] MCHC 33.0 30.7 - 35.5 g/dL LAB HEMATOLOGY METHOD 06/25/2025 8:04 AM EDT [facility] RDW 17.8(H) 11.5 - 14.5 % LAB HEMATOLOGY METHOD 06/25/2025 8:04 AM EDT [facility] MPV 9.6 8.8 - 12.5 fL LAB HEMATOLOGY METHOD 06/25/2025 8:04 AM EDT [facility] nRBC 0.0 <=0.0 per 100 WBCs LAB HEMATOLOGY METHOD 06/25/2025 8:04 AM EDT [facility] Blood Venous blood specimen / Unknown Venipuncture / Unknown 06/25/2025 7:08 AM EDT 06/25/2025 7:54 AM EDT us Donnie Jordan MD LAB BLOOD ORDERABLES Final Resul t [facility] [address] [place] [address] * (ABNORMAL) Comprehensive metabolic panel (06/25/2025 7:08 AM EDT) Glucose, Plasma 50(LL) 74 - 99 mg/dL 06/25/2025 8:22 AM EDT [facility] BUN, Plasma 33(H) 7 - 21 mg/dL 06/25/2025 8:22 AM EDT [facility] Creatinine, Plasma 1.30(H) 0.60 - 1.10 mg/dL 06/25/2025 8:22 AM EDT [facility] BUN/Creatinine Ratio 25 06/25/2025 8:22 AM EDT [facility] Sodium, Plasma 134(L) 136 - 145 mmol/L 06/25/2025 8:22 AM EDT [facility] Potassium, Plasma 3.6 3.6 - 4.9 mmol/L 06/25/2025 8:22 AM EDT [facility] Chloride, Plasma 101 97 - 107 mmol/L 06/25/2025 8:22 AM EDT [facility] CO2, Plasma 22 22 - 29 mmol/L 06/25/2025 8:22 AM EDT [facility] Anion Gap 11 6 - 16 mmol/L 06/25/2025 8:22 AM EDT [facility] Total Calcium, Plasma 8.8(L) 8.9 - 10.2 mg/dL 06/25/2025 8:22 AM EDT [facility] Total Protein 6.8 6.3 - 7.9 g/dL 06/25/2025 8:22 AM EDT [facility] Albumin, Plasma 3.2(L) 3.5 - 5.2 g/dL 06/25/2025 8:22 AM EDT [facility] AST, Plasma 76(H) 10 - 35 U/L 06/25/2025 8:22 AM EDT [facility] ALT, Plasma 30 10 - 35 U/L 06/25/2025 8:22 AM EDT [facility] Alkaline Phosphatase, Plasma 158(H) 35 - 104 U/L 06/25/2025 8:22 AM EDT [facility] Total Bilirubin, Plasma 2.1(H) 0.2 - 1.1 mg/dL 06/25/2025 8:22 AM EDT [facility] eGFRcr 48.7 mL/min/1.7 3m*2 06/25/2025 8:22 AM EDT [facility] Comment:Reported eGFRcr in m L/min/1.73m2 is based the CKD-EPI 2020 equation that does not use a race coefficient. Blood Venous blood specimen / Unknown Venipuncture / Unknown 06/25/2025 7:08 AM EDT 06/25/2025 7:47 AM EDT us Donnie Jordan MD LAB BLOOD ORDERABLES Final Resul t [facility] [address] [place] [address] * XR OUTSIDE IMAGES (05/25/2025 3:57 PM EDT) Anatomical Region Laterality Modality Radiographic Gauri ging 05/25/2025 3:57 PM EDT External Provider IMG XR PROCEDURES Final Result * POCT glycosylated hemoglobin (Hb A1C) (04/06/2025 2:04 PM EDT) POCT Hemoglobin A1C 5.1 <5.7% Non-Diabe tic % [facility] Kit Lot Number [id number] [facility] Kit Expiration Date 01/11/2027 [facility] Blood Venous blood specimen / Unknown 04/06/2025 2:04 PM EDT Silvia Lewis COMMERCIAL FRONT LOAD OPERATOR POINT OF CARE TEST ENTER/ED IT ORDERABLES Final Result [facility] [address] [place] [address] * HIV 1 & 2 Antibody/Antigen Screen (06/01/2014 4:27 PM EDT) HIV 1 Result NONREACTIVE Screening for HIV 1 and 2 antibodies is NONREACTIVE. No confirmatory testing is required. SUNQUEST 06/01/2014 4:27 PM EDT 06/01/2014 5:40 PM EDT Historical Provider LAB BLOOD ORDERABLES Final R esult SUNQUEST from Last 3 Months or Most Recently Relevant to [place] [address] AMBETTER AMBETTER [employer] Care Teams Electronic Musical Instrument Repairer Relationship Specialty Start Date End Date Jessica Man APRN [address] [place] [address] PCP - General 02/24/21 Mary Lim APRN [address] [place] [address] Referring Physician Gastroenterology 05/11/25
--- OUTSIDE RECORDS SUMMARY | 2025-07-09 15:04 | XMS_ITS | Clinical Summary ---
[facility] Address [address] [place] [address] Care Team Providers Care Landscape Contractor Name Role Phone Jessica Man APRN Primary Care Provider [phone] Allergies Active Allergy Reactions Criticality Noted Date [...] for 1 day. 4 Active Continuous Glucose Hospice Executive Director (Dexcom G7 Hospice Executive Director) device USE TO MONITOR BLOOD SUGAR DIRECTED 4 Active Continuous Glucose Sensor (Dexcom G7 Sensor) [facility] USE TO MONITOR BLOOD SUGAR. REPLACE EVERY 10 DAYS 4 Active Continuous Glucose Transmitter (Dexcom G6 Transmitter) [facility] USU TO MEASURE BLOOD SUGAR DIRECTED. REPLACE [...] Needle Jazlyn U/F 32G X 4 MM [facility] USE TO INJECT INSULIN 4 TIMES EACH [...] false negative. Will order in lab PSG. Lund 17. Preop cardiovascular exam 03/17/2024 Encounter for [...] 05/14/2025 09/03/2023, , 07/13/2020, Additional history exists HEMOGLOBIN A1C 10/06/2025 04/06/2025, 03/1 , 09/21/2024, Additional history exists COLONOSCOPY 04/19/2029 04/19/2019 COLORECTAL CANCER SCREENING 04/19/2029 HEPATITIS C SCREENING Completed 06/01/2014 Insurance [employer] Care Teams Landscape Contractor Relationship Specialty Start Date End Date Jessica Man APRN [address] [place] [address] PCP - General Nurse Practitioner 03/17/24
--- OUTSIDE RECORDS SUMMARY | 2025-07-09 15:04 | XMS_ITS | Encounter Summary ---
Author Organization Healthcare Address [address] [place] [address] Care Team Providers Care Fruit Tester Name Role Phone Jessica Man LODGING FACILITIES ATTENDANT Primary Care Provider Mary Lim LODGING FACILITIES ATTENDANT Unavailable [phone] Encounter Details Date Type Department Care Team (Late st Contact Info) Description 06/30/2025 Telephone [facility] [address] [facility] [address] [place] [address] Shruti Scott Social History Tobacco Use Types Packs/Day Years [...] encounter Miscellaneous Notes * Telephone Encounter - Shruti Scott - 06/30/2025 7:30 AM EDT Called patient to discuss Liver Evaluation on her return to clinic on 08/04. Patient did not answer. A VM was left asking her to return my call to discuss the additional appts that have been added toher rtc for Liver Evaluation at [phone]. documented in this encounter Plan of Treatment Upcoming Encounters Date Type Department Care Team (Late st Contact Info) Description 07/22/2025 3:40 PM EDT Office Visit [facility] Endocrinology [address] [place] [address] Silvia Lewis, LODGING FACILITIES ATTENDANT [address] [place] [address] 08/04/2025 8:30 AM EDT Clinical Support [facility] Transplant [place] [address] [facility] [address] [place] [address] 08/04/2025 9:00 AM EDT Appointment [facility] Radiology [address] [place] [address] 08/04/2025 9:45 AM EDT Appointment [facility] Radiology [address], 1st [place] [address] 08/04/2025 10:00 AM EDT Clinical Support [facility] Transplant [place] [address] [facility] [address] [place] [address] CH - CLINICAL NUTRITION [address] [place] [address] 08/04/2025 11:00 AM EDT Office Visit [facility] Transplant [place] [address] [place] [address] Lily Dickinson MD [address] [place] [address] 08/04/2025 11:30 AM EDT Social Work [facility] [address] [place] [address] Elaine Banerjee [place], [place] [phone] 08/04/2025 2:30 PM EDT Appointment [facility] [address] [place] [address] 08/04/2025 3:00 PM EDT Appointment [facility] Pulmonary Function Testing [address] [place] [address] 11/02/2025 11:00 AM EST Office Visit [facility] Medicine Specialties [address] 2nd [place] [address] Raman Chang PA [address] [facility] [address] [place] [address] documented as of this encounter [...] documented as of this encounter Care Teams Fruit Tester Relationship Specialty Start Date End Date Jessica Man APRN [address] [place] [address] PCP - General 02/24/21 Mary Lim APRN [address] [place] [address] Referring Physician Gastroenterology 05/11/25 documented as of this encounter
--- OUTSIDE RECORDS SUMMARY | 2025-07-09 15:04 | XMS_ITS | Encounter Summary ---
Author Organization Healthcare Address [address] [place] [address] Care Team Providers Care Ventilation Worker Name Role Phone Jessica Man PERFORMANCE TEST CONSULTANT Primary Care Provider [phone] Mary Lim PERFORMANCE TEST CONSULTANT Unavailable [phone] Encounter Details Date Type Department Care Team (Late st Contact Info) Description 07/01/2025 Telephone [facility] [address] [facility] [address] [place] [address] Shruti Scott Social History Tobacco Use Types [...] * Telephone Encounter - Shruti Scott - 07/01/2025 8:37 AM EDT Called and spoke to Luz about her upcoming Liver Evaluation. Discussed appts and times, also lether know that I will be mailing a Liver Evaluation Packet out to her today that includes dental/ob-server programmer/vaccination paperwork. Patient expresses she wears dentures and does not have a a dentist, let her know that I would update nurse coordinator on this. Patient expresses she needs a mammogram completed and usually goes to [facility] for this. Let her know that I would also update nurse coordinator for this as well. Patient verbalized and confirmed appts and understanding of Liver Evaluation along with NPO instructions. documented in this encounter Plan of Treatment Upcoming Encounters Date Type Department Care Team (Late st Contact Info) Description 07/22/2025 3:40 PM EDT Office Visit [facility] Endocrinology [address] [place] [address] Silvia Lewis, PERFORMANCE TEST CONSULTANT [address] [email or web address] [address] [place] [address] 08/04/2025 8:30 AM EDT Clinical Support [facility] [address] [facility] [address] [place] [address] 08/04/2025 9:00 AM EDT Appointment [facility] Radiology [address] [place] [address] 08/04/2025 9:45 AM EDT Appointment [facility] Radiology [address], 1[address] [place] [address] 08/04/2025 10:00 AM EDT Clinical Support [facility] [address] [facility] [address] [place] [address] CH - CLINICAL NUTRITION [address] [place] [address] 08/04/2025 11:00 AM EDT Office Visit [facility] [address] [place] [address] Lily Dickinson MD [address] [place] [address] 08/04/2025 11:30 AM EDT Social Work [facility] [address] [place] [address] Elaine Banerjee [place], [place] [phone] 08/04/2025 2:30 PM EDT Appointment [facility] [address] [place] [address] 08/04/2025 3:00 PM EDT Appointment [facility] Pulmonary Function Testing [address] [place] [address] 11/02/2025 11:00 AM EST Office Visit [facility] Medicine Specialties [address], 2nd [place] [address] Raman Chang PA [address] [facility] [[email or web address] [address] [place] [address] documented as of this encounter [...] documented as of this encounter Care Teams Ventilation Worker Relationship Specialty Start Date End Date Jessica Man, PERFORMANCE TEST CONSULTANT [address] [place] [address] PCP - General 02/24/21 Mary Lim APRN [address] [place] [address] Referring Physician Gastroenterology 05/11/25 documented as of this encounter
--- OUTSIDE RECORDS SUMMARY | 2025-07-09 15:04 | XMS_ITS | Encounter Summary ---
Author Organization [facility] Address [address] [place] [address] Care Team Providers Care Fish Grader Name Role Phone Jessica Man APRN Primary Care Provider [phone] Mary Lim PRINCIPAL TRAINER Unavailable [phone] Reason for Referral * Transplant (Routine) - Authorized Specialty Diagnoses / Procedures Referred By Contshiloh t Referred To Contact Transplant Diagnoses End-stage liver disease (CMS/HCC) Mary Lim, NGUYỄN [address] [place] [address] Phone: tel: fax: [facility] [address] [address] Phone: tel: fax: Referral ID Status Reason Start Date Expiration Date Visits Requested Visits Authorized [id number] Authorized Specialty Services Required 05/11/2025 12/09/2025 999 999 Reason for Visit * Reason Comments Referral - Liver Txp Encounter Details Date Type Department Care Team (Late st Contact Info) Description 05/11/2025 Telephone [facility] [address] [address] [place] [place] [address] Referral - Liver Txp Social History Tobacco Use Types Packs/Day Years Used Date Smoking Tobacco: Former Cigarettes 0.5 30 1 993 - 2023 Smokeless Tobacco: Never Comments:Smoking for 30+ yea [...] Description 07/22/2025 3:40 PM EDT Office Visit [facility] Endocrinology [address] [place] [address] Silvia Lewis S, PRINCIPAL TRAINER [address] [place] [address] 08/04/2025 8:30 AM EDT Clinical Support [facility] [address] [place] [address] 08/04/2025 9:00 AM EDT Appointment [facility] Radiology [address] [place] [address] 08/04/2025 9:45 AM EDT Appointment [facility] Radiology [address], 1st [place] [address] 08/04/2025 10:00 AM EDT Clinical Support [facility] [place] [address] [address] CH - CLINICAL NUTRITION [address] [place], [place] [id number] 08/04/2025 11:00 AM EDT Office Visit [facility] [place] [address] [address] Lily Dickinson MD [address] [address] 08/04/2025 11:30 AM EDT Social Work [facility] [place] [address] [address] Elaine Banerjee [place], [place] [address] 08/04/2025 2:30 PM EDT Appointment [facility] [address] [place] [address] 08/04/2025 3:00 PM EDT Appointment [facility] Pulmonary Function Testing [address] [place] [address] 11/02/2025 11:00 AM EST Office Visit [facility] Medicine Specialties [address], 2nd [place] [address] Raman Chang PA [address] [phone] Scheduled Referrals Name Type Priority Associated Diagnoses [...] Venous blood specimen / Unknown 03/05/2025 Result [facility] Provider LAB BLOOD ORDERABLES Final R esult * Total Bilirubin, Plasma (03/05/2025) External Bilirubin Total 1.6 mg/dL Blood Venous blood specimen / Unknown 03/05/2025 Result [facility] LAB BLOOD ORDERABLES Final R esult * Creatinine, Plasma (03/05/2025) External Creatinine Blood 1.1 mg/dL Blood Venous blood specimen / Unknown 03/05/2025 Result [facility] LAB BLOOD ORDERABLES Final R esult * Sodium, Plasma (03/05/2025) External Sodium 135 mmol/L Blood Venous blood specimen / Unknown 03/05/2025 Result [facility] BLOOD ORDERABLES Final R esult * Prothrombin Time/INR (03/05/2025) External Prothrombin Time (PT) 13.6 External INR - Internormal Ratio 1.3 Blood Venous blood specimen / Unknown 03/05/2025 Result [facility] LAB BLOOD ORDERABLES Final R esult documented [...] as of this encounter Care Teams Fish Grader Relationship Specialty Start Date End Date Jessica Man APRN [address] [place] [address] PCP - General 02/24/21 Mary Lim APRN [address] [place] [address] Referring Physician Gastroenterology 05/11/25 documented as of this encounter
--- OUTSIDE RECORDS SUMMARY | 2025-07-09 15:04 | XMS_ITS | Encounter Summary ---
Author Organization Healthcare Address [address] [place] [address] Care Team Providers Care Proof Sorter Name Role Phone Donovan Jessica Khoury DUCO POLISHER Primary Care Provider [phone] Mary Lim DUCO POLISHER Unavailable [phone] Encounter Details Date Type Department Care Team (Latest Contact Info) Description 07/02/2025 Travel Social History Tobacco Use Types Packs/Day [...] Description 07/22/2025 3:40 PM EDT Office Visit [facility] Endocrinology [address] [place] [address] Silvia Lewis, DUCO POLISHER [address] [facility] [address] [place] [address] 08/04/2025 8:30 AM EDT Clinical Support [facility] Transplant Center [address] [place] [address] 08/04/2025 9:00 AM EDT Appointment [facility] Radiology [address] [place] [address] 08/04/2025 9:45 AM EDT Appointment [facility] Radiology [address], 1st [place] [address] 08/04/2025 10:00 AM EDT Clinical Support [facility] Transplant [place] [address] [place] [address] CH - CLINICAL NUTRITION [address] [place] [address] 08/04/2025 11:00 AM EDT Office Visit [facility] Transplant [place] [address] [place] [address] Lily Dickinson MD [address] [facility] [address] [place] [address] 08/04/2025 11:30 AM EDT Social Work [facility] Transplant [place] [address] [facility] [address] [place] [address] [place] [address] 08/04/2025 2:30 PM EDT Appointment [facility] [address] [place] [address] 08/04/2025 3:00 PM EDT Appointment [facility] Pulmonary Function Testing [address] [place] [address] 11/02/2025 11:00 AM EST Office Visit [facility] Medicine Specialties [address], 2nd [place] [address] Raman Chang, PA [address] [place] [address] documented as of this encounter [...] documented as of this encounter Care Teams Proof Sorter Relationship Specialty Start Date End Date Jessica Man APRN [address] [place] [address] PCP - General 02/24/21 Mary Lim APRN [address] [place] [address] Referring Physician Gastroenterology 05/11/25 documented as of this encounter
--- OUTSIDE RECORDS SUMMARY | 2025-07-09 15:05 | XMS_ITS | Encounter Summary ---
Author Organization Healthcare Address [address] [place] [address] Care Team Providers Care Tow Truck Operator Name Role Phone Man, Jessica Khoury AMBULANCE DISPATCHER Primary Care Provider Mary Lim AMBULANCE DISPATCHER Unavailable [phone] Encounter Details Date Type Department Care Team (Latest Contact Info) Description 06/24/2025 Travel Social History Tobacco Use Types Packs/Day Years Used Date Smoking Tobacco: Former Cigarettes 0.5 30 1 99 - 2022 Smokeless Tobacco: Never Comments:Smoking for [...] Description 07/22/2025 3:40 PM EDT Office Visit [facility] Endocrinology [address] [place] [address] Silvia Lewis, AMBULANCE DISPATCHER [address] [place] [address] 08/04/2025 8:30 AM EDT Clinical Support [facility] [address] [place] [address] 08/04/2025 9:00 AM EDT Appointment [facility] Radiology [address] [place] [address] 08/04/2025 9:45 AM EDT Appointment [facility] Radiology [address] 1st [place] [address] 08/04/2025 10:00 AM EDT Clinical Support [facility] [place] [address] [place] [address] CH - CLINICAL NUTRITION [address] [place] [address] 08/04/2025 11:00 AM EDT Office Visit [facility] [place] [address] [place] [address] Lily Dickinson MD [address] [place] [address] 08/04/2025 11:30 AM EDT Social Work [facility] Trans[facility] [place] [address] [facility] [address] [place] [address] [place] [address] 08/04/2025 2:30 PM EDT Appointment [facility] [address] [place] [address] 08/04/2025 3:00 PM EDT Appointment [facility] Pulmonary Function Testing [address] [place] [address] 11/02/2025 11:00 AM EST Office Visit [facility] Medicine Specialties [address], 2nd [place] [address] Raman Chang, PA [address] [facility] [address] [place] [address] documented as of this encounter Visit Diagnoses [...] of this encounter Care Teams Tow Truck Operator Relationship Specialty Start Date End Date Jessica Man APRN [address] [place] [address] PCP - General 02/24/21 Mary Lim APRN [address] [place] [address] Referring Physician Gastroenterology 05/11/25 documented as of this encounter
--- OUTSIDE RECORDS SUMMARY | 2025-07-09 15:05 | XMS_ITS | Encounter Summary ---
Author Organization [facility] Address [address] [place] [address] Care Team Providers Care Patient Services Technician Name Role Phone Jessica Man COMPUTER NETWORKING INSTRUCTOR Primary Care Provider [phone] Mary Lim COMPUTER NETWORKING INSTRUCTOR Unavailable [phone] Reason for Referral * Consultation (Routine) - Closed Specialty Diagnoses / Procedures Referred By Contshiloh t Referred To Contact Endocrinology Diagnoses Type 2 diabetes mellitus with diabetic neuropathy, unspecified whether extermination supervisor insulin use Jessica Man, COMPUTER NETWORKING INSTRUCTOR [address] [place] [address] Phone: tel: fax: [facility] Endocrinology [address] [place] [address] Phone: tel: fax: Referral ID Status Reason Start Date Expiration Date V isits Requested Visits Authorized [id number] Closed Specialty Services Required 10/10/2022 04/10/2024 1 1 Encounter Details Date Type Department Care Team (Late st Contact Info) Description 10/10/2022 Community [facility] Community Practice [address] [place] [address] Jessica Man, COMPUTER NETWORKING INSTRUCTOR [address] [place], [place] [id number] Type 2 diabetes mellitus with diabetic neuropathy, unspecified whether extermination supervisor insulin use (CMS/[facility]) (Primary Dx) Social History Tobacco Use Types [...] 3:40 PM EDT Office Visit [facility] Endocrinology [address] [place] [address] Silvia Lewis, COMPUTER NETWORKING INSTRUCTOR [address] [place] [address] 08/04/2025 8:30 AM EDT Clinical Support [facility] Transplant Center [address] [place] [address] 08/04/2025 9:00 AM EDT Appointment [facility] Radiology [address] [place] [address] 08/04/2025 9:45 AM EDT Appointment [facility] Radiology [address] 1[address] [place] [address] 08/04/2025 10:00 AM EDT Clinical Support [facility] Transplant [facility] [address] [place] [address] CH - CLINICAL NUTRITION [address] [place], [place] [address] 08/04/2025 11:00 AM EDT Office Visit [facility] Transplant [facility] [address] [place] [address] Lily Dickinson MD [address] [place] [address] 08/04/2025 11:30 AM EDT Social Work [facility] Transplant [facility] [address] [facility] [address] [place] [address] Elaine Banerjee [place], [place] [address] 08/04/2025 2:30 PM EDT Appointment [facility] [address] [place] [address] 08/04/2025 3:00 PM EDT Appointment [facility] Pulmonary Function Testing [address] [place] [address] 11/02/2025 11:00 AM EST Office Visit [facility] Medicine Specialties [address], [address] [place] [address] Raman Chang PA [address] [facility] [address] [place] [address] Scheduled Referrals Name Type Priority Associated Diagnoses Order Schedule Ambulatory referral to Endocrinology Outpatient Referral Routine Type 2 diabetes mellitus with diabetic neuropathy, unspecified whether fdc insulin use (CMS/[facility]) Expected: 10/10/2022 (Approximate), Expires: 04/10/2024 documented as of this encounter Visit Diagnoses Diagnosis Type 2 diabetes mellitus with diabetic neuropathy, unspecified whether extermination supervisor insulin use- Primary documented in this encounter Care Teams Patient Services Technician Relationship Specialty Start Date End Date Jessica Man APRN [address] [place] [address] PCP - General 02/24/21 Mary Lim APRN [address] [place] [address] Referring Physician Gastroenterology 05/11/25 documented as of this encounter
--- OUTSIDE RECORDS SUMMARY | 2025-07-09 15:05 | XMS_ITS | Encounter Summary ---
Author Organization Healthcare Address [address] [place] [address] Care Team Providers Care Toy Packer Name Role Phone Jessica Man RISK LEAD Primary Care Provider Mary Lim RISK LEAD Unavailable [phone] Encounter Details Date Type Department Care Team (Late st Contact Info) Description 06/16/2025 Telephone [place] [facility] [address], [address] [place] [id number] [facility], Physician, [address] [place] [address] Social History Tobacco Use Types Packs/Day Years [...] Description 07/22/2025 3:40 PM EDT Office Visit [facility] Endocrinology [address] [place] [address] Silvia Lewis, RISK LEAD [address] [place] [address] 08/04/2025 8:30 AM EDT Clinical Support [facility] Transplant Center [address] [place] [address] 08/04/2025 9:[address] [facility] Radiology [address] [place] [address] 08/04/2025 9:[address] [facility] Radiology [address] 1[address] [place] [address] 08/04/2025 10:00 AM EDT Clinical [facility] [address] [place] [address] Lurdes Mahoney, RD [facility] - CLINICAL NUTRITION [address] [place] [address] 08/04/2025 11:00 AM EDT Office Visit [facility] [address] [place] [address] Lily Dickinson MD [address] [place] [address] 08/04/2025 11:[address] [facility] [address] [facility] [address] [place] [address] [place] [address] 08/04/2025 2:30 PM EDT Appointment [facility] [address] [place] [address] 08/04/2025 3:00 PM EDT Appointment [facility] Pulmonary Function Testing [address] [place] [address] 11/02/2025 11:00 AM EST Office Visit [facility] Special[facility] [address] [place] [address] Raman Chang, PA [address] [place] [address] documented as of this encounter [...] documented as of this encounter Care Teams Toy Packer Relationship Specialty Start Date End Date Jessica Man APRN [address] [place] [id number] PCP - General 02/24/21 Mary Lim APRN [address] [place] [id number] Referring Physician Gastroenterology 05/11/25 documented as of this encounter
--- OUTSIDE RECORDS SUMMARY | 2025-07-09 15:05 | XMS_ITS | Encounter Summary ---
Author Organization Healthcare Address [address] [place] [address] Care Team Providers Care Activities Assistant Name Role Phone Jessica Man CONSUMER SAFETY OFFICER Primary Care Provider [phone] Mary Lim CONSUMER SAFETY OFFICER Unavailable [phone] Encounter Details Date Type Department Care Team [...] Description 07/22/2025 3:40 PM EDT Office Visit [facility] Endocrinology [address] [place] [address] Silvia Lewis, CONSUMER SAFETY OFFICER [address] [place] [address] 08/04/2025 8:30 AM EDT Clinical Support [facility] Transplant Center [address] [place] [address] 08/04/2025 9:00 AM EDT Appointment [facility] Radiology [address] [place] [address] 08/04/2025 9:45 AM EDT Appointment [facility] Radiology [address] 1[address] [place] [address] 08/04/2025 10:00 AM EDT Clinical Support [facility] Transplant Center [address] [facility] [address] [place] [address] [facility] - CLINICAL NUTRITION [address] [place] [address] 08/04/2025 11:00 AM EDT Office Visit [facility] Transplant [place] [address] [place] [address] Lily Dickinson MD [address] [facility] [address] [place] [address] 08/04/2025 11:30 AM EDT Social Work [facility] Transplant Center [address] [facility] [address] [place] [address] [place] [address] 08/04/2025 2:30 PM EDT Appointment [facility] Radiology [address] [place] [address] 08/04/2025 3:00 PM EDT Appointment [facility] Pulmonary Function Testing [address] [place] [address] 11/02/2025 11:00 AM EST Office Visit [facility] Medicine Specialties [address] [place] [address] Raman Chang, PA [address] [place] [address] documented as of this encounter [...] documented as of this encounter Care Teams Activities Assistant Relationship Specialty Start Date End Date Jessica Man APRN [address] [place] [id number] PCP - General 02/24/21 Mary Lim APRN [address] [place] [address] Referring Physician Gastroenterology 05/11/25 documented as of this encounter
--- OUTSIDE RECORDS SUMMARY | 2025-07-09 15:05 | XMS_ITS | Data Portability ---
Author Organization [place] - [place] [facility] [place] Address [address] [place] [address] Care Team Providers Care Merchant Seaman Name Role Phone ELIS SEGUNDO Primary Care Provider MARY LIM Airport Screener [phone] Assessment No assessment recorded. Plan of Treatment Reminders Order Date Submit Date Provider Last Modified By Organization Details Last Modified Time Details Appointments None recorded. Lab PT/INR 2024 025 [facility] (Lab Registration) , [address] [place] [address] [place], [address], 5 09:47:40 CMP, serum or plasma 2024 025 [facility] (Lab Registration) , [address] [place] [address] [place], [address], 5 09:47:40 CBC w/ auto diff 2024 025 [facility] (Lab Registration) , [address] [place] [address] [place], [address], 5 09:47:40 ammonia, blood 2024 025 [facility] (Lab Registration) , [address] [place] [address] [place], [address], 5 09:47:40 PT/INR 2024 025 [facility] (Lab Registration) , [address] [facility] [place], [address], 5 08:45:29 CMP, serum or plasma 2024 025 [facility] (Lab Registration) , [address] [facility] [place], [address], 5 08:45:29 CBC w/ auto diff 2024 025 [facility] (Lab Registration) , [address] [facility] [place], [address], 5 08:45:29 afp (alpha-fet oprotein) tumor marker, serum or plasma 2024 025 [facility] (Lab Registration) , [address] [facility] [place], [address], 5 08:45:29 cell count w/ diff, body fluid 2024 025 [facility] (Lab Registration) , [address] [facility] [place], [address], 5 08:45:28 gram stain, body fluid 2024 025 [facility] (Lab Registration) , [address] [facility] [place], [address], 5 08:45:28 culture, body fluid 2024 025 [facility] (Lab Registration) , [address] [facility] [place], [address], 5 08:45:29 PT/INR 2023 024 [facility] (Lab Registration) , [address] [facility] [place], [address], 4 10:12:28 CMP, serum or plasma 2023 024 [facility] , [address] [facility] [place], [address], 4 10:12:31 CBC w/ auto diff 2023 024 [facility] (Lab Registration) , [address] [place] [address] [place], [address], 4 10:01:33 afp (alpha-fet oprotein) tumor marker, serum or plasma 2023 024 rufina Mohamud [facility] (Lab Registration) , [address] [place] [address] [place], [address], 4 16:12:34 CBC w/ auto diff 2023 024 [email or web address] Mohamud [facility] (Lab Registration) , [address] [place] [address] [place], [address], 4 07:56:42 Referral liver transplant referral 2024 025 [facility] ([facility]), [address], [place], [address], 5 09:14:21 Procedures colonoscop y procedure (PROC) 2023 024 rufina Guthrie MD, [address] [place] [address] Gael [place] , [place], [address], 4 13:47:16 upper endoscopy procedure (EGD) (PROC) 2023 024 rufina Guthrie, [address] [place] [address] Willy [place], [place], [address], 4 08:11:49 colonoscop y procedure (PROC) 2023 024 rufina Guthrie, [address] [place] [address] Willy [place], [place], [address], 4 13:47:17 Surgeries ultrasound guided paracentes is (SURG) 2024 025 [facility] (Central Scheduling), [address] [place] [address] [place], [address], 5 12:06:06 Imaging US, abdomen, limited 2024 025 [id number] [facility] Centralized Scheduling, [address] [place], [address], 5 14:12:40 US, liver 2023 024 [facility] Centralized Scheduling, [address] [place], [address], 4 08:53:02 Medication Orders Linzess 290 mcg capsule 2024 025 [facility], [address] [place] [address], [id number], 5 11:24:43 spironolac tone 100 mg tablet 2024 025 [facility], [address] [place] [address], [id number], 5 14:12:51 furosemide 40 mg tablet 2024 025 [facility], [address] [place] [address], [id number], 5 14:56:03 Linzess 290 mcg capsule 2024 025 [facility], [address] [place] [address], [id number], 5 13:07:14 spironolac tone 100 mg tablet 2024 025 [facility], [address] [place] [address], [id number], 5 10:56:07 furosemide 40 mg tablet 2024 025 [facility], [address] [place] [address], [id number], 5 12:57:10 Linzess 290 mcg capsule 2023 024 [facility], [address] [place] [address], [id number], 5 14:45:07 Miralax 17 gram/dose oral powder 2023 024 [facility], [address] [place] [address], [id number], 5 16:21:01 Dulcolax (bisacodyl ) 5 mg tablet,del ayed release 2023 024 [facility], [address] [place] [address], [id number], 5 16:21:03 Patient TargetsNo targets recorded. Patient Instructions Encounter Date Encounter Id Patient Instructions Last Modified By Organization Details Last Modified Time 02/18/2025 [id number] low sodium diet (2,000 milligram): care instructions Not available 02/18/2025 11:47:26 Reason for Referral Liver Transplant Referral fo r Cirrhosis of liver Referring Physician: Mary Lim, Gastroenterology, Encounter Date: 05/10/2025 Results Created Date Observation Date Name Description Value Unit Range Abnormal Flag Note LastModifiedBy Organization Detail LastModifiedTime 06/04/2006/04/2024 CBC W/ AUTO DIFF WBC 5.49 K/uL 4.5-11 .5 Not Available [facility] (Pre-Op Clinic) [address] [place] [address] [place], [address], 06/04/2024 17:03:50 06/04/20 24 06/04/2024 CBC W/ AUTO DIFF RBC 4.65 M/uL 4.0-5. 4 Not Available [facility] (Pre-Op Clinic) [address] [facility] [place], [address], 06/04/2024 17:03:50 06/04/20 24 06/04/2024 CBC W/ AUTO DIFF HGB 12.9 g/dL 12.0-1 5.0 Not Available [facility] (Pre-Op Clinic) [address] [place] [address] [place], [address], 06/04/2024 17:03:50 06/04/20 24 06/04/2024 CBC W/ AUTO DIFF HCT 39.0 % 35-49 Not Available [facility] (Pre-Op Clinic) [address] [place] [address] [place], [address], 06/04/2024 17:03:50 06/04/20 24 06/04/2024 CBC W/ AUTO DIFF MCV 83.9 fL 80.0-1 00.0 Not Available [facility] (Pre-Op Clinic) [address] [place] [address] [place], [address], 06/04/2024 17:03:50 06/04/20 24 06/04/2024 CBC W/ AUTO DIFF MCH 27.7 pg 26.0-3 2.0 Not Available [facility] (Pre-Op Clinic) [address] [place] [address] [place], [address], 06/04/2024 17:03:50 06/04/20 24 06/04/2024 CBC W/ AUTO DIFF MCHC 33.1 g/dL 32.0-3 6.0 Not Available [facility] (Pre-Op Clinic) [address] [place] [address] [place], [address], 06/04/2024 17:03:50 06/04/20 24 06/04/2024 CBC W/ AUTO DIFF RDW 14.0 % 11.5-1 4.5 Not Available [facility] (Pre-Op Clinic) [address] [place] [address] [place], [address], 06/04/2024 17:03:50 06/04/20 24 06/04/2024 CBC W/ AUTO DIFF platelet count 120 K/uL 142-42 4 low Not Available [facility] (Pre-Op Clinic) [address] [place] [address] [place], [address], 06/04/2024 17:03:50 06/04/20 24 06/04/2024 CBC W/ AUTO DIFF MPV 9.8 fL 6.8-10 .2 Not Available [facility] (Pre-Op Clinic) [address] [place] [address] [place], [address], 06/04/2024 17:03:50 06/04/20 24 06/04/2024 CBC W/ AUTO DIFF neutrophil % 72.4 % 50-70 high Not Available [facility] (Pre-Op Clinic) [address] [place] [address] [place], [address], 06/04/2024 17:03:50 06/04/20 24 06/04/2024 CBC W/ AUTO DIFF lymphocyte % 14.4 % 18.0-4 2.0 low Not Available [facility] (Pre-Op Clinic) [address] [place] [address] [place], [address], 06/04/2024 17:03:50 06/04/20 24 06/04/2024 CBC W/ AUTO DIFF monocyte % 6.7 % 2.0-11 .0 Not Available [facility] (Pre-Op Clinic) [address] [place] [address] [place], [address], 06/04/2024 17:03:50 06/04/20 24 06/04/2024 CBC W/ AUTO DIFF eosinophil % 5.1 % 1.0-3. 0 high Not Available [facility] (Pre-Op Clinic) [address] [place] [address] [place], [address], 06/04/2024 17:03:50 06/04/20 24 06/04/2024 CBC W/ AUTO DIFF basophil % 0.7 % 0.0-2. 0 Not Available [facility] (Pre-Op Clinic) [address] [facility] [place], [address], 06/04/2024 17:03:50 06/04/20 24 06/04/2024 CBC W/ AUTO DIFF immature granulocytes % 0.7 % 0.0-0. 8 Not Available [facility] (Pre-Op Clinic) [address] [facility] [place], [address], 06/04/2024 17:03:50 06/04/20 24 06/04/2024 CBC W/ AUTO DIFF nucleated red blood cells % 0.0 % Not Available [facility] (Pre-Op Clinic) [address] [facility] [place], [address], 06/04/2024 17:03:50 06/04/20 24 06/04/2024 CBC W/ AUTO DIFF neutrophil # 3.97 K/uL Not Available [facility] (Pre-Op Clinic) [address] [place] [address] [place], [address], 06/04/2024 17:03:50 06/04/20 24 06/04/2024 CBC W/ AUTO DIFF lymphocyte # 0.79 K/uL Not Available [facility] (Pre-Op Clinic) [address] [place] [address] [place], [address], 06/04/2024 17:03:50 06/04/20 24 06/04/2024 CBC W/ AUTO DIFF monocyte # 0.37 K/uL Not Available [facility] (Pre-Op Clinic) [address] [facility] [place], [address], 06/04/2024 17:03:50 06/04/20 24 06/04/2024 CBC W/ AUTO DIFF eosinophil # 0.28 K/uL Not Available [facility] (Pre-Op Clinic) [address] [place] [address] [place], [address], 06/04/2024 17:03:50 06/04/20 24 06/04/2024 CBC W/ AUTO DIFF basophil # 0.04 K/uL Not Available [facility] (Pre-Op Clinic) [address] [place] [address] [place], [address], 06/04/2024 17:03:50 06/04/20 24 06/04/2024 CBC W/ AUTO DIFF immature gramulocytes # 0.04 K/uL Not Available [facility] (Pre-Op Clinic) [address] [place] [address] [place], [address], 06/04/2024 17:03:50 06/04/20 24 06/04/2024 CBC W/ AUTO DIFF nucleated red blood cells # 0.00 k/uL Not Available [facility] (Pre-Op Clinic) [address] [place] [address] [place], [address], 06/04/2024 17:03:50 06/04/20 24 06/04/2024 CBC W/ AUTO DIFF manual differential NO Not Available [facility] (Pre-Op Clinic) [address] [place] [address] [place], [address], 06/04/2024 17:03:50 06/04/20 24 06/04/2024 CBC W/ AUTO DIFF note Unles s other jeffries noted testi ng perfo rmed at: [facility] [address] [place] [address] Chasity barr MD Not Available [facility] (Pre-Op Clinic) [address] [place] [address] [place], [address], 06/04/2024 17:03:50 06/12/20 24 06/12/2024 RFS-P ATHOL OGY SPECI MEN REQUE ST pathreq Patho logy [address] [place] [address] Phone or [phone] Fax Giancarlo vazquez Jr., M.Sally., Medic al Direc tor [facility] [address] : [place] [address] Phone Numbe r: [phone] Chasity barr M.D. PATHO LOGY REPOR T Patie nt Name: MERCEDES MICHAELS Date of : 89 Age/S ex: 54/F Accou nt Numbe r: [id number] Medic al Recor d Numbe r: [id number] Order ing MD: PAPO PATTERSON RY Date Colle cted : 2023 Date Recei yuri : 2023 Date Repor rodrigo : 024 Exam: Biops y Acces tika# : [id number] Labor atory #: [id number] Copie s To: CHRISTOFER GILLIS Techn ician : Clini tyson Histo ry Histo ry of polyp s, cirrh osis BodyS ite ANTRU M, BIOPS Y Gross Descr iptio n Label ed antr um is a 0.5 x 0.3 x 0.2 cm porti on of epstein soft tissu e which is submi tted entir cherry 1 block . MTH Micro scopi c Descr iptio n Secti ons confi rm gastr ic mucos a remar kable for elong ation , tortu osity , and dilat ion of gastr ic pits. The gladys a propr ia demon strat es a patch y chron ic infla mmato ry infil trate with occas ional wisps of minerva h muscl e. No Helic obact er organ isms or neopl troy is obser yuri. Final Diagn osis GASTR IC HYPER [place] [address] BodyS ite ESOPH JAKE, BIOPS Y SubSi te DISTA L Legal ly authe ntica rodrigo by CHASITY CONLEY MD 06-16 14:24 :00 Gross Descr iptio n Label ed duod enal biops y are 2 porti ons of chavira soft tissu e measu ring 0.7 x 0.4 x 0.1 cm aggre gate, submi tted entir cherry 1 block . Micro scopi c Descr iptio n The squam ous epith elium shows basal hyper plasi a and chron ic infla mmati on with eosin ophil s. There is elong ation of conge sted papil lae reach ing the outer third of the epith elium . Viral umanzor e and dyspl troy are not prese nt. Intra epith elial eosin ophil s numbe r up to 1 per high power field . Final Diagn osis CHRON IC REFLU X ESOPH AGITI S, NEGAT [place] [address] BodyS ite ASCEN DING COLON POLYP Gross Descr iptio n Label ed asce nding polyp is a 0.7 x 0.3 x 0.2 cm porti on of epstein soft tissu e which is submi tted entir cherry 1 block . Micro scopi c Descr iptio n Secti ons show a ej rodrigo appea sotero of the crypt s with absor ptive and kayla t cells showi ng basal ly orien rodrigo bland nucle i. Neopl troy is not prese nt. Final Diagn osis HYPER [place]LAST [place] [address] BodyS ite DESCE NDING COLON POLYP Gross Descr iptio n Label ed desc endin g polyp is a 0.2 x 0.2 x 0.2 cm porti on of epstein soft tissu e which is submi tted entir cherry 1 block . Micro scopi c Descr iptio n Secti ons show a ej rodrigo appea sotero of the crypt s with absor ptive and kayla t cells showi ng basal ly orien rodrigo bland nucle i. Neopl troy is not prese nt. Legal ly authe ntica rodrigo by CHASITY CONLEY MD 06-16 14:24 :00 Final Diagn osis HYPER [place]LAST [place] [address] BodyS ite RECTA L POLYP Gross Descr iptio n Label ed rect al polyp is a 0.3 x 0.3 x 0.2 cm porti on of epstein soft tissu e which is submi tted entir cherry 1 block . Micro scopi c Descr iptio n Secti ons show a ej rodrigo appea sotero of the crypt s with absor ptive and kayla t cells showi ng basal ly orien rodrigo bland nucle i. Neopl troy is not prese nt. Final Diagn osis HYPER PLAST IC POLYP EJT/[place] [address] Legal ly authe ntica rodrigo by CHASITY CONLEY MD 06-16 14:24 :00 Not Available [facility] (Pre-Op Clinic) [address] [place] [address] [place], [address], 06/16/2024 14:47:42 09/02/20 24 09/02/2024 CBC AUTO W DIFF WBC 3.8 10 4.5-11 .5 low Not Available [facility] (Lab Registration) [address] [place], [address], 09/02/2024 10:01:33 09/02/20 24 09/02/2024 CBC AUTO W DIFF RBC 4.12 10 4.25-5 .57 low Not Available [facility] (Lab Registration) [address] [place], [address], 09/02/2024 10:01:33 09/02/20 24 09/02/2024 CBC AUTO W DIFF HGB 11.7 g/dL 12.0-1 5.7 low Not Available [facility] (Lab Registration) [address] [place], [address], 09/02/2024 10:01:33 09/02/20 24 09/02/2024 CBC AUTO W DIFF HCT 35.5 % 36.0-4 7.0 low Not Available [facility] (Lab Registration) [address] [place], [address], 09/02/2024 10:01:33 09/02/20 24 09/02/2024 CBC AUTO W DIFF MCV 86.2 fL 80-95 Not Available [facility] (Lab Registration) [address] [place], [address], 09/02/2024 10:01:33 09/02/20 24 09/02/2024 CBC AUTO W DIFF MCH 28.4 pg 27.0-3 4.0 Not Available [facility] (Lab Registration) [address] [place], [address], 09/02/2024 10:01:33 09/02/20 24 09/02/2024 CBC AUTO W DIFF MCHC 33.0 g/dL 32.0-3 6.0 Not Available [facility] (Lab Registration) [address] [place], [address], 09/02/2024 10:01:33 09/02/20 24 09/02/2024 CBC AUTO W DIFF platelet count 80 10 150-45 0 low Not Available [facility] (Lab Registration) [address] [place], [address], 09/02/2024 10:01:33 09/02/20 24 09/02/2024 CBC AUTO W DIFF RDW 14.5 % 12.3-1 5.1 Not Available [facility] (Lab Registration) [address] [place], [address], 09/02/2024 10:01:33 09/02/20 24 09/02/2024 CBC AUTO W DIFF MPV 8.7 fL 7.4-10 .4 Not Available [facility] (Lab Registration) [address] [place], [address], 09/02/2024 10:01:33 09/02/20 24 09/02/2024 CBC AUTO W DIFF granulocyte% 77.0 % 40-75 high Not Available [facility] (Lab Registration) [address] [place], [address], 09/02/2024 10:01:33 09/02/20 24 09/02/2024 CBC AUTO W DIFF lymphocyte% 11.5 % 15-57 low Not Available [facility] (Lab Registration) [address] [place], [address], 09/02/2024 10:01:33 09/02/20 24 09/02/2024 CBC AUTO W DIFF monocyte% 5.8 % 4.0-12 .0 Not Available [facility] (Lab Registration) [address] [place], [address], 09/02/2024 10:01:33 09/02/20 24 09/02/2024 CBC AUTO W DIFF eosinophil% 5.2 % 0.0-4. 0 high Not Available [facility] (Lab Registration) [address] [place], [address], 09/02/2024 10:01:33 09/02/20 24 09/02/2024 CBC AUTO W DIFF basophil% 0.5 % 0.0-1. 0 Not Available [facility] (Lab Registration) [address] [place], [address], 09/02/2024 10:01:33 09/02/20 24 09/02/2024 CBC AUTO W DIFF immature granulocytes % 0.0 % 0.0-0. 8 Not Available [facility] (Lab Registration) [address] [place], [address], 09/02/2024 10:01:33 09/02/20 24 09/02/2024 CBC AUTO W DIFF granulocyte# 2.93 10 Not Available [facility] (Lab Registration) [address] [place], [address], 09/02/2024 10:01:33 09/02/20 24 09/02/2024 CBC AUTO W DIFF lymphocyte# 0.44 10 Not Available [facility] (Lab Registration) [address] [place], [address], 09/02/2024 10:01:33 09/02/20 24 09/02/2024 CBC AUTO W DIFF monocyte# 0.22 10 Not Available [facility] (Lab Registration) [address] [place], [address], 09/02/2024 10:01:33 09/02/20 24 09/02/2024 CBC AUTO W DIFF eosinophil# 0.20 10 Not Available [facility] (Lab Registration) [address] [place], [address], 09/02/2024 10:01:33 09/02/20 24 09/02/2024 CBC AUTO W DIFF basophil# 0.02 10 Not Available [facility] (Lab Registration) [address], [place], [address], 09/02/2024 10:01:33 09/02/20 24 09/02/2024 CBC AUTO W DIFF immature granulocytes # 0.00 10 Not Available [facility] (Lab Registration) [address], [place], [address], 09/02/2024 10:01:33 09/02/20 24 09/02/2024 CBC AUTO W DIFF manual differential NO Not Available [facility] (Lab Registration) [address], [place], [address], 09/02/2024 10:01:33 09/02/20 24 09/02/2024 CBC AUTO W DIFF note Unles s other jeffries noted testi ng perfo rmed at: [facility] [address] [place] [address] [phone] Chasity barr MD CLIA: [id number] Not Available [facility] (Lab Registration) [address], [place], [address], 09/02/2024 10:01:33 09/02/20 24 09/02/2024 PT (PROT HROMB IN TIME) W INR PT (prothrombin time) 12.1 secon ds 9.1-12 .0 high Not Available [facility] (Lab Registration) [address], [place], [address], 09/02/2024 10:12:28 09/02/20 24 09/02/2024 PT (PROT HROMB IN TIME) W INR INR 1.12 0.9-1. 1 high INR is inten ded to be used only for patie nts on stabl e oral anti- coagu lant thera py. *Ther apeut ic Range s 2.0 - 3.0 Usual Thera peuti c Range 2.5 - 3.5 For patie nts with a histo ry of multi ple deep vein throm bus or mecha nical heart valve s. Not Available [facility] (Lab Registration) [address], [place], [address], 09/02/2024 10:12:28 09/02/20 24 09/02/2024 PT (PROT HROMB IN TIME) W INR note Unles s other jeffries noted testi ng perfo rmed at: [facility] [address] [place] [address] [phone] Chasity barr MD CLIA: [id number] Not Available [facility] (Lab Registration) [address], [place], [address], 09/02/2024 10:12:28 09/02/20 24 09/02/2024 COMP METAB OLIC PANEL sodium 142 mmol/ L 136-14 5 Not Available [facility] (Lab Registration) [address] [place], [address], 09/02/2024 10:12:31 09/02/20 24 09/02/2024 COMP METAB OLIC PANEL potassium 4.3 mmol/ L 3.5-5. 1 Not Available [facility] (Lab Registration) [address] [place], [address], 09/02/2024 10:12:31 09/02/20 24 09/02/2024 COMP METAB OLIC PANEL chloride 108 mmol/ L 98-107 high Not Available [facility] (Lab Registration) [address] [place], [address], 09/02/2024 10:12:31 09/02/20 24 09/02/2024 COMP METAB OLIC PANEL carbon dioxide 28 mmol/ L 21-32 Not Available [facility] (Lab Registration) [address] [place], [address], 09/02/2024 10:12:31 09/02/20 24 09/02/2024 COMP METAB OLIC PANEL anion gap 6.0 Not Available [facility] (Lab Registration) [address], [place], [address], 09/02/2024 10:12:31 09/02/20 24 09/02/2024 COMP METAB OLIC PANEL glucose 157 mg/dL 70-110 high Not Available [facility] (Lab Registration) [address], [place], [address], 09/02/2024 10:12:31 09/02/20 24 09/02/2024 COMP METAB OLIC PANEL blood urea nitrogen 14 mg/dL 7-18 Not Available [facility] (Lab Registration) [address], [place], [address], 09/02/2024 10:12:31 09/02/20 24 09/02/2024 COMP METAB OLIC PANEL creatinine 1.1 mg/dL 0.6-1. 0 high Not Available [facility] (Lab Registration) [address], [place], [address], 09/02/2024 10:12:31 09/02/20 24 09/02/2024 COMP METAB OLIC PANEL BUN/creatini ne ratio 12.7 9-21 Not Available [facility] (Lab Registration) [address], [place], [address], 09/02/2024 10:12:31 09/02/20 24 09/02/2024 COMP METAB OLIC PANEL estimated glom filtration rate 60 mL/mi n >60- GFR LIMIT ATION : The eGFR equat ion CKD-E PI 2020 is not appli cable for pedia tric patie nts or great er than 90 years of age. The follo wing condi tions may alter the GFR resul t: extre mes in body size, malnu triti on or obesi ty, skele yvan muscl e disea se, parap legia or quadr ipleg ia, veget john diet or rapid ly umanzor ing kiney funct ion. Not Available [facility] (Lab Registration) [address], [place], [address], 09/02/2024 10:12:31 09/02/20 24 09/02/2024 COMP METAB OLIC PANEL total protein 7.2 g/dL 6.4-8. 2 Not Available [facility] (Lab Registration) [address] [place], [address], 09/02/2024 10:12:31 09/02/20 24 09/02/2024 COMP METAB OLIC PANEL albumin 3.2 g/dL 3.4-5. 0 low Not Available [facility] (Lab Registration) [address] [place], [address], 09/02/2024 10:12:31 09/02/20 24 09/02/2024 COMP METAB OLIC PANEL calcium 8.7 mg/dL 8.5-10 .1 Not Available [facility] (Lab Registration) [address] [place], [address], 09/02/2024 10:12:31 09/02/20 24 09/02/2024 COMP METAB OLIC PANEL corrected calcium 9.3 mg/dL 8.5-10 .1 Not Available [facility] (Lab Registration) [address] [place], [address], 09/02/2024 10:12:31 09/02/20 24 09/02/2024 COMP METAB OLIC PANEL bilirubin total 0.8 mg/dL 0.4-1. 5 Not Available [facility] (Lab Registration) [address] [place], [address], 09/02/2024 10:12:31 09/02/20 24 09/02/2024 COMP METAB OLIC PANEL AST (SGOT) 36 U/L 15-37 Not Available [facility] (Lab Registration) [address] [place], [address], 09/02/2024 10:12:31 09/02/20 24 09/02/2024 COMP METAB OLIC PANEL ALT (SGPT) 19 U/L 12-78 Not Available [facility] (Lab Registration) [address] [place], [address], 09/02/2024 10:12:31 09/02/20 24 09/02/2024 COMP METAB OLIC PANEL alk phosphatase 147 U/L 50-120 high Not Available [facility] (Lab Registration) [address] [place], [address], 09/02/2024 10:12:31 09/02/20 24 09/02/2024 COMP METAB OLIC PANEL note Unles s other jeffries noted testi ng perfo rmed at: [facility] [address] [place] [address] [phone] Chasity barr MD CLIA: [id number] Not Available [facility] (Lab Registration) [address] [place], [address], 09/02/2024 10:12:31 09/02/20 24 09/02/2024 AFP, SERUM , TUMOR MARKE R note Unles s other jeffries noted testi ng perfo rmed at: [facility] [address] [place] [address] [phone] Chasity barr MD CLIA: [id number] Not Available [facility] (Lab Registration) [address] [place], [address], 09/03/2024 08:24:18 09/02/20 24 09/03/2024 AFP, SERUM , TUMOR MARKE R AFP, serum, tumor marker 5.1 NG/mL 0.0-9. 2 Jaelyn Diagn ostic s Elect jaelyn milum inesc ence Immun oassa y (ECLI A) . Value s obtai ayde with diffe rent assay metho ds or kits canno t be used inter umanzor eaangelitoy . Resul ts canno t be inter prete d as absol [place] evide nce of the prese nce or absen ce of annabella felix se. . This test is not inter preta ble in pregn ant femal es. Perfo rmed at: [facility] [address], [place] [id number] Lab Direc tor: Samson diaz PhD, Phone : [phone] SENT TO REFER ENCE LAB Not Available [facility] (Lab Registration) [address] , [place], [address], 09/03/2024 08:24:18 02/27/20 25 02/26/2025 CULTU RE BODY FLUID results [facility] 02-27 1217 No Growt h at 1 Day AE 02-28 844 No Growt h at 2 Days B 03-01 700 No Growt h at 3 Days Not Available [facility] (Pre-Op Clinic) [address] [place] [address] [place], [address], 03/01/2025 07:01:59 02/27/20 25 02/26/2025 CULTU RE BODY FLUID note Unles s other jeffries noted testi ng perfo rmed at: [facility] [address] [place] [address] Chasity barr MD Not Available [facility] (Pre-Op Clinic) [address] [place] [address] [place], [address], 03/01/2025 07:01:59 02/27/20 25 02/26/2025 CELL COUNT body fluid count performed by: AUTOMA RODRIGO COUNT Not Available [facility] (Pre-Op Clinic) [address] [place] [address] [place], [address], 02/26/2025 16:02:26 02/27/20 25 02/26/2025 CELL COUNT source PERITO SAM Not Available [facility] (Pre-Op Clinic) [address] [place] [address] [place], [address], 02/26/2025 16:02:26 02/27/20 25 02/26/2025 CELL COUNT color YELLOW clear Not Available [facility] (Pre-Op Clinic) [address] [place] [address] [place], [address], 02/26/2025 16:02:26 02/27/2002/26/2025 CELL COUNT apperance CLEAR clear Not Available [facility] (Pre-Op Clinic) [address] [place] [address] [place], [address], 02/26/2025 16:02:26 02/27/2002/26/2025 CELL COUNT volume 4500 cc Not Available [facility] (Pre-Op Clinic) [address] [place] [address] [place], [address], 02/26/2025 16:02:26 02/27/2002/26/2025 CELL COUNT viscosity NORMAL normal Not Available [facility] (Pre-Op Clinic) [address] [place] [address] [place], [address], 02/26/2025 16:02:26 02/27/2002/26/2025 CELL COUNT WBC 365 /uL Not Available [facility] (Pre-Op Clinic) [address] [place] [address] [place], [address], 02/26/2025 16:02:26 02/27/2002/26/2025 CELL COUNT RBC 2000 /uL Not Available [facility] (Pre-Op Clinic) [address] [place] [address] [place], [address], 02/26/2025 16:02:26 02/27/2002/26/2025 CELL COUNT polynuclear 10 % Not Available [facility] (Pre-Op Clinic) [address] [place] [address] [place], [address], 02/26/2025 16:02:26 02/27/2002/26/2025 CELL COUNT mononuclear 90 % ALL COUNT S PERFO RMED ON HEMAC YTOME TER ARE DONE IN [facility]. Not Available [facility] (Pre-Op Clinic) [address] [place] [address] [place], [address], 02/26/2025 16:02:26 02/27/20 25 02/26/2025 CELL COUNT note Unles s other jeffries noted testi ng perfo rmed at: [facility] [address] [place] [address] Chasity barr MD Not Available [facility] (Pre[facility]Op Clinic) [address] [facility] [place], [address], 02/26/2025 16:02:26 02/27/20 25 02/26/2025 GRAM STAIN source PERITO SAM Not Available [facility] (Pre-Op Clinic) [address] [facility] [place], [address], 02/26/2025 16:30:24 02/27/20 25 02/26/2025 GRAM STAIN organism #1 NO ORGANI SMS Not Available [facility] (Pre-Op Clinic) [address] [facility] [place], [address], 02/26/2025 16:30:24 02/27/20 25 02/26/2025 GRAM STAIN WBC RARE no WBC's seen Not Available [facility] (Pre-Op Clinic) [address] [place] [address] [place], [address], 02/26/2025 16:30:24 02/27/20 25 02/26/2025 GRAM STAIN yeast NONE SEEN none seen Not Available [facility] (Pre-Op Clinic) [address] [place] [address] [place], [address], 02/26/2025 16:30:24 02/27/20 25 02/26/2025 GRAM STAIN gram positive QC slide PASS PASS Not Available [facility] (Pre-Op Clinic) [address] [place] [address] [place], [address], 02/26/2025 16:30:24 02/27/20 25 02/26/2025 GRAM STAIN gram negative QC slide PASS PASS Not Available [facility] (Pre-Op Clinic) [address] [place] [address] [place], [address], 02/26/2025 16:30:24 02/27/20 25 02/26/2025 GRAM STAIN note Unles s other jeffries noted testi ng [facility]med [facility]: [facility] [address] [place] [address] Chasity barr MD Not Available [facility] (Pre-Op Clinic) [address] [facility] [place], [address], 02/26/2025 16:30:24 03/05/20 25 03/05/2025 CBC W/ AUTO DIFF WBC 6.33 K/uL 4.5-11 .5 Not Available [facility] (Pre-Op Clinic) [address] [place] [address] [place], [address], 03/05/2025 14:06:49 03/05/20 25 03/05/2025 CBC W/ AUTO DIFF RBC 3.80 M/uL 4.0-5. 4 low Not Available [facility] (Pre-Op Clinic) [address] [place] [address] [place], [address], 03/05/2025 14:06:49 03/05/20 25 03/05/2025 CBC W/ AUTO DIFF HGB 9.8 g/dL 12.0-1 5.0 low Not Available [facility] (Pre-Op Clinic) [address] [place] [address] [place], [address], 03/05/2025 14:06:49 03/05/20 25 03/05/2025 CBC W/ AUTO DIFF HCT 30.2 % 35-49 low Not Available [facility] (Pre-Op Clinic) [address] [place] [address] [place], [address], 03/05/2025 14:06:49 03/05/20 25 03/05/2025 CBC W/ AUTO DIFF MCV 79.5 fL 80.0-1 00.0 low Not Available [facility] (Pre-Op Clinic) [address] [place] [address] [place], [address], 03/05/2025 14:06:49 03/05/20 25 03/05/2025 CBC W/ AUTO DIFF MCH 25.8 pg 26.0-3 2.0 low Not Available [facility] (Pre-Op [facility]) [address] [place] [address] [place], [address], 03/05/2025 14:06:49 03/05/20 25 03/05/2025 CBC W/ AUTO DIFF MCHC 32.5 g/dL 32.0-3 6.0 Not Available [facility] (Pre-Op Clinic) [address] [place] [address] [place], [address], 03/05/2025 14:06:49 03/05/20 25 03/05/2025 CBC W/ AUTO DIFF RDW 15.5 % 11.5-1 4.5 high Not Available [facility] (Pre-Op Clinic) [address] [place] [address] [place], [address], 03/05/2025 14:06:49 03/05/20 25 03/05/2025 CBC W/ AUTO DIFF platelet count 135 K/uL 142-42 4 low Not Available [facility] (Pre-Op [facility]) [address] [place] [address] [place], [address], 03/05/2025 14:06:49 03/05/20 25 03/05/2025 CBC W/ AUTO DIFF MPV 9.4 fL 6.8-10 .2 Not Available [facility] (Pre-Op [facility]) [address] [place] [address] [place], [address], 03/05/2025 14:06:49 03/05/20 25 03/05/2025 CBC W/ AUTO DIFF neutrophil % 71.1 % 50-70 high Not Available [facility] (Pre-Op [facility]) [address] [place] [address] [place], [address], 03/05/2025 14:06:49 03/05/20 25 03/05/2025 CBC W/ AUTO DIFF lymphocyte % 11.2 % 18.0-4 2.0 low Not Available [facility] (Pre[facility]Op [facility]) [address] [place] [address] [place], [address], 03/05/2025 14:06:49 03/05/20 25 03/05/2025 CBC W/ AUTO DIFF monocyte % 10.3 % 2.0-11 .0 Not Available [facility] (Pre-Op [facility]) [address] [place] [address] [place], [address], 03/05/2025 14:06:49 03/05/20 25 03/05/2025 CBC W/ AUTO DIFF eosinophil % 6.2 % 1.0-3. 0 high Not Available [facility] (Pre[facility]Op [facility]) [address] [place] [address] [place], [address], 03/05/2025 14:06:49 03/05/20 25 03/05/2025 CBC W/ AUTO DIFF basophil % 0.9 % 0.0-2. 0 Not Available [facility] (Pre[facility]Op [facility]) [address] [place] [address] [place], [address], 03/05/2025 14:06:49 03/05/20 25 03/05/2025 CBC W/ AUTO DIFF immature granulocytes % 0.3 % 0.0-0. 8 Not Available [facility] (Pre-Op [facility]) [address] [place] [address] [place], [address], 03/05/2025 14:06:49 03/05/20 25 03/05/2025 CBC W/ AUTO DIFF nucleated red blood cells % 0.0 % Not Available [facility] (Pre-Op [facility]) [address] [place] [address] [place], [address], 03/05/2025 14:06:49 03/05/20 25 03/05/2025 CBC W/ AUTO DIFF neutrophil # 4.50 K/uL Not Available [facility] (Pre-Op Clinic) [address] [place] [address] [place], [address], 03/05/2025 14:06:49 03/05/20 25 03/05/2025 CBC W/ AUTO DIFF lymphocyte # 0.71 K/uL Not Available [facility] (Pre-Op [facility]) [address] [place] [address] [place], [address], 03/05/2025 14:06:49 03/05/20 25 03/05/2025 CBC W/ AUTO DIFF monocyte # 0.65 K/uL Not Available [facility] (Pre-Op Clinic) [address] [place] [address] [place], [address], 03/05/2025 14:06:49 03/05/20 25 03/05/2025 CBC W/ AUTO DIFF eosinophil # 0.39 K/uL Not Available [facility] (Pre-Op Clinic) [address] [place] [address] [place], [address], 03/05/2025 14:06:49 03/05/20 25 03/05/2025 CBC W/ AUTO DIFF basophil # 0.06 K/uL Not Available [facility] (Pre-Op Clinic) [address] [place] [address] [place], [address], 03/05/2025 14:06:49 03/05/20 25 03/05/2025 CBC W/ AUTO DIFF immature gramulocytes # 0.02 K/uL Not Available [facility] (Pre-Op Clinic) [address] [place] [address] [place], [address], 03/05/2025 14:06:49 03/05/20 25 03/05/2025 CBC W/ AUTO DIFF nucleated red blood cells # 0.00 k/uL Not Available [facility] (Pre-Op Clinic) [address] [place] [address] [place], [address], 03/05/2025 14:06:49 03/05/20 25 03/05/2025 CBC W/ AUTO DIFF manual differential NO Not Available [facility] (Pre-Op Clinic) [address] [place] [address] [place], [address], 03/05/2025 14:06:49 03/05/20 25 03/05/2025 CBC W/ AUTO DIFF note Unles s other jeffries noted testi ng perfo rmed at: [facility] [address] [place] [address] Chasity barr MD Not Available [facility] (Pre-Op Clinic) [address] [place] [address] [place], [address], 03/05/2025 14:06:49 03/05/20 25 03/05/2025 PT WITH INR AND PTT protime 13.6 secon ds 9.0-12 .0 high Not Available [facility] (Pre-Op Clinic) [address] [place] [address] [place], [address], 03/05/2025 14:30:40 03/05/20 25 03/05/2025 PT WITH INR AND PTT INR 1.3 2.0-3. 0 low MONIT OR COUMA DIN THERA PY WITH INR VALUE ONLY. * THERA PEUTI C RANGE S FOR INR 2.0 - 3.0 USUAL THERA PEUTI C RANGE 2.5 - 3.5 FOR PATIE NTS WITH A HISTO RY OF MULTI PLE DEEP VEIN THROM BOLYT IC EVENT S OR MECHA NICAL HEART VALVE . Not Available [facility] (Pre-Op Clinic) [address] [place] [address] [place], [address], 03/05/2025 14:30:40 03/05/20 25 03/05/2025 PT WITH INR AND PTT partial thromb time 35.0 secon ds 20-34 high THE EQUIV ALENT APTT VALUE S FOR THERA PEUTI C RANGE OF HEPAR IN AT 0.3 TO O.5 IU/mL ARE 51.8 TO 80.0 SECON DS. Not Available [facility] (Pre-Op Clinic) [address] [place] [address] [place], [address], 03/05/2025 14:30:40 03/05/20 25 03/05/2025 PT WITH INR AND PTT note Unles s other jeffries noted testi ng perfo rmed at: [facility] [address] [place] [address] Chasity barr MD Not Available [facility] (Pre-Op Clinic) [address] [facility] [place], [address], 03/05/2025 14:30:40 03/05/20 25 03/05/2025 COMP METAB OLIC PANEL sodium 135 mmol/ L 137-14 7 low Not Available [facility] (Pre-Op Clinic) [address] [facility] [place], [address], 03/05/2025 14:38:12 03/05/20 25 03/05/2025 COMP METAB OLIC PANEL potassium 3.7 mmol/ L 3.5-5. 1 Not Available [facility] (Pre-Op Clinic) [address] [facility] [place], [address], 03/05/2025 14:38:12 03/05/20 25 03/05/2025 COMP METAB OLIC PANEL chloride 97 mmol/ L 98-110 low Not Available [facility] (Pre-Op [facility]) [address] [facility] [place], [address], 03/05/2025 14:38:12 03/05/20 25 03/05/2025 COMP METAB OLIC PANEL carbon dioxide 27 mmol/ L 21-30 Not Available [facility] (Pre-Op Clinic) [address] [facility] [place], [address], 03/05/2025 14:38:12 03/05/20 25 03/05/2025 COMP METAB OLIC PANEL anion gap 11 mmol/ L 6-14 Not Available [facility] (Pre-Op Clinic) [address] [facility] [place], [address], 03/05/2025 14:38:12 03/05/20 25 03/05/2025 COMP METAB OLIC PANEL glucose 64 mg/dL 70-115 low Not Available [facility] (Pre-Op [facility]) [address] [place] [address] [place], [address], 03/05/2025 14:38:12 03/05/20 25 03/05/2025 COMP METAB OLIC PANEL BUN 22 mg/dL 7-17 high Not Available [facility] (Pre-Op [facility]) [address] [place] [address] [place], [address], 03/05/2025 14:38:12 03/05/20 25 03/05/2025 COMP METAB OLIC PANEL creatinine 1.1 mg/dL 0.5-1. 5 Not Available [facility] (Pre[facility]Op [facility]) [address] [place] [address] [place], [address], 03/05/2025 14:38:12 03/05/20 25 03/05/2025 COMP METAB OLIC PANEL BUN/creatini ne ratio 20 10-20 Not Available [facility] (Pre-Op [facility]) [address] [place] [address] [place], [address], 03/05/2025 14:38:12 03/05/20 25 03/05/2025 COMP METAB OLIC PANEL glom filtration rate 59 mL/mi n >60- low GFR LIMIT ATION : The eGFR equat ion CKD-E PI 2020 is not appli cable for pedia tric patie nts or great er than 90 years of age. The follo wing condi tions may alter the GFR resul t: extre mes in body size, malnu triti on or obesi ty, skele yvan muscl e disea se, parap legia or quadr ipleg ia, veget john diet or rapid ly umanzor ing kiney funct ion. Not Available [facility] (Pre-Op [facility]) [address] [place] [address] [place], [address], 03/05/2025 14:38:12 03/05/20 25 03/05/2025 COMP METAB OLIC PANEL osmolality (calculated) 283 mosmo l/kg 275-30 1 OSMOL ALITY IS A CALCU LATIO N UTILI ZING THE SERUM /PLAS MA SODIU M, GLUCO SE AND UREA NITRO GEN (BUN) LEVEL S. FOR THE MOST ACCUR ATE RESUL T A MEASU RED SERUM OSMOL ALITY IS SUGGE STED. Not Available [facility] (Pre-Op [facility]) [address] [place] [address] [place], [address], 03/05/2025 14:38:12 03/05/20 25 03/05/2025 COMP METAB OLIC PANEL total protein 6.9 g/dL 6.2-8. 2 Not Available [facility] (Pre[facility]Op [facility]) [address] [place] [address] [place], [address], 03/05/2025 14:38:12 03/05/20 25 03/05/2025 COMP METAB OLIC PANEL albumin 3.2 g/dL 3.5-5. 0 low Not Available [facility] (Pre[facility]Op [facility]) [address] [place] [address] [place], [address], 03/05/2025 14:38:12 03/05/20 25 03/05/2025 COMP METAB OLIC PANEL calcium 8.1 mg/dL 8.5-10 .8 low Not Available [facility] (Pre-Op Clinic) [address] [place] [address] [place], [address], 03/05/2025 14:38:12 03/05/20 25 03/05/2025 COMP METAB OLIC PANEL bilirubin total 1.6 mg/dL 0.2-1. 3 high Not Available [facility] (Pre[facility]Op [facility]) [address] [place] [address] [place], [address], 03/05/2025 14:38:12 03/05/20 25 03/05/2025 COMP METAB OLIC PANEL AST (SGOT) 67 IU/L 14-36 high Not Available [facility] (Pre[facility]Op [facility]) [address] [place] [address] [place], [address], 03/05/2025 14:38:12 03/05/20 25 03/05/2025 COMP METAB OLIC PANEL ALT (SGPT) 25 IU/L 0-35 Pleas e note new refer ence inter mari for ALT. Due to a recen t manuf actur er metho dolog y erna hardy, the refer ence inter mari for ALT is lower effec tive February 02, 2021. Not Available [facility] (Pre[facility]Op [facility]) [address] [place] [address] [place], [address], 03/05/2025 14:38:12 03/05/20 25 03/05/2025 COMP METAB OLIC PANEL alk phosphatase 129 IU/L 38-126 high Not Available [facility] (Pre[facility]Op Clinic) [address] [place] [address] [place], [address], 03/05/2025 14:38:12 03/05/20 25 03/05/2025 COMP METAB OLIC PANEL note Unles s other jeffries noted testi ng perfo rmed at: [facility] [address] [place] [address] Chasity barr MD Not Available [facility] (Pre[facility]Op [facility]) [address] [place] [address] [place], [address], 03/05/2025 14:38:12 03/05/20 25 03/05/2025 CULTU RE BODY FLUID results [facility] 03-06 1142 No Growt h at [address] [facility] 03-07 944 No Growt h at 2 Days [facility] 03-10 544 [place] te:1 scant gram posit nj rods [facility] 03-10 545 [place] te:2 heavy gram posit nj rods Not Available [facility] (Pre-Op Clinic) [address] [place] [address] [place], [address], 03/10/2025 05:47:26 03/05/20 25 03/05/2025 CULTU RE BODY FLUID note Unles s other jeffries noted testi ng perfo rmed at: [facility] [address] [place] [address] Chasity barr MD Not Available [facility] (Pre-Op [facility]) [address] [place] [address] [place], [address], 03/10/2025 05:47:26 03/05/20 25 03/05/2025 GRAM STAIN source BODY FLUID Not Available [facility] (Pre[facility]Op [facility]) [address] [place] [address] [place], [address], 03/05/2025 16:17:34 03/05/20 25 03/05/2025 GRAM STAIN organism #1 NO ORGANI SMS Not Available [facility] (Pre-Op Clinic) [address] [place] [address] [place], [address], 03/05/2025 16:17:34 03/05/20 25 03/05/2025 GRAM STAIN WBC FEW no WBC's seen Not Available [facility] (Pre-Op Clinic) [address] [place] [address] [place], [address], 03/05/2025 16:17:34 03/05/20 25 03/05/2025 GRAM STAIN yeast NONE SEEN none seen Not Available [facility] (Pre-Op Clinic) [address] [place] [address] [place], [address], 03/05/2025 16:17:34 03/05/20 25 03/05/2025 GRAM STAIN gram positive QC slide BY MICRO TECH PASS Not Available [facility] (Pre-Op Clinic) [address] [place] [address] [place], [address], 03/05/2025 16:17:34 03/05/20 25 03/05/2025 GRAM STAIN gram negative QC slide BY MICRO TECH PASS Not Available [facility] (Pre[facility]Op Clinic) [address] [place] [address] [place], [address], 03/05/2025 16:17:34 03/05/20 25 03/05/2025 GRAM STAIN note Unles s other jeffries noted testi ng perfo rmed at: [facility] [address] [facility] [place] [address] Chasity barr MD Not Available [facility] (Pre[facility]Op [facility]) [address] [facility] [place], [address], 03/05/2025 16:17:34 03/05/20 25 03/05/2025 CELL COUNT body fluid count performed by: AUTOMA RODRIGO COUNT Not Available [facility] (Pre[facility]Op [facility]) [address] [place] [address] [place], [address], 03/05/2025 16:33:12 03/05/20 25 03/05/2025 CELL COUNT source PERITO SAM Not Available [facility] (Pre[facility]Op [facility]) [address] [place] [address] [place], [address], 03/05/2025 16:33:12 03/05/20 25 03/05/2025 CELL COUNT color STRAW clear Not Available [facility] (Pre[facility]Op [facility]) [address] [place] [address] [place], [address], 03/05/2025 16:33:12 03/05/20 25 03/05/2025 CELL COUNT apperance CLEAR clear Not Available [facility] (Pre-Op [facility]) [address] [place] [address] [place], [address], 03/05/2025 16:33:12 03/05/20 25 03/05/2025 CELL COUNT viscosity NORMAL normal Not Available [facility] (Pre-Op [facility]) [address] [place] [address] [place], [address], 03/05/2025 16:33:12 03/05/20 25 03/05/2025 CELL COUNT WBC 344 /uL Not Available [facility] (Pre[facility]Op [facility]) [address] [place] [address] [place], [address], 03/05/2025 16:33:12 03/05/20 25 03/05/2025 CELL COUNT RBC 1000 /uL Not Available [facility] (Pre-Op [facility]) [address] [place] [address] [place], [address], 03/05/2025 16:33:12 03/05/20 25 03/05/2025 CELL COUNT polynuclear 10 % Not Available [facility] (Pre[facility]Op [facility]) [address] [place] [address] [place], [address], 03/05/2025 16:33:12 03/05/20 25 03/05/2025 CELL COUNT mononuclear 90 % ALL COUNT S PERFO RMED ON HEMAC YTOME TER ARE [facility]. Not Available [facility] (Pre[facility]Op [facility]) [address] [place] [address] [place], [address], 03/05/2025 16:33:12 03/05/20 25 03/05/2025 CELL COUNT note Unles s other jeffries noted testi ng perfo rmed at: [facility] [address] [place] [address] Chasity barr MD Not Available [facility] ([facility]Op [facility]) [address] [place] [address] [place], [address], 03/05/2025 16:33:12 03/05/20 25 03/05/2025 ALPHA FETOP ROTEI N TUMOR MARKE R note Unles s other jeffries noted testi ng perfo rmed at: [facility] [address] [place] [address] Chasity barr MD Not Available [facility] (Pre[facility]Op [facility]) [address] [place] [address] [place], [address], 03/06/2025 08:16:06 03/05/20 25 03/06/2025 ALPHA FETOP ROTEI N TUMOR MARKE R AFP, serum (tumor marker) 2.3 NG/mL 0.0-9. 2 Jaelyn Diagn ostic s Elect jaelyn milum inesc ence Immun oassa y (ECLI A) . Value s obtai ayde with diffe rent assay metho ds or kits canno t be used inter umanzor eably . Resul ts canno t be inter prete d as absol [place] evide nce of the prese nce or absen ce of annabella felix se. . This test is not inter preta ble in pregn ant femal es. Perfo rmed at: [facility] n [address], [place] [address] 1269 Lab Direc tor: Samson diaz PhD, Phone : [phone] Not Available [facility] (Pre[facility]Op [facility]) [address] [place] [address] [place], [address], 03/06/2025 08:16:06 03/05/20 25 03/05/2025 CULTU RE BODY FLUID culbf ===== ===== ===== ===== ===== ===== ===== ===== ===== ===== ===== ===== ===== ===== ===== ===== ===== ===== ===== ===== ===== ===== ===== ===== CULTU RE NO.: [id number] Exam Statu s: Final Exam Type: CULTU RE BODY FLUID ===== ===== ===== ===== ===== ===== ===== ===== ===== ===== ===== ===== ===== ===== ===== ===== ===== ===== ===== ===== ===== ===== ===== ===== Cultu re Repor t: Organ ism #01 Coryn ebact erium amyco latum /dolores tissi mum (JACKIE MYMIN ) Organ ism #02 Bacil leno (BACI ) Antib iotic s CORAM YMIN BACI Achie vable Achie vable () () Dosag e Serum Level Urine Level mcg/m l mcg/m l Sensi tivit y Not Requ N N N N [facility] 03-06 1142 No Growt h at [address] [facility] 03-07 944 No Growt h at 2 Days [facility] 03-10 548 [place] te:2 Gram Posit nj rods isola rodrigo from thio only [facility] 03-10 549 [place] te:1 gram posit nj rods isola rodrigo from thio only Not Available [facility] (Pre-Op Clinic) [address] [place] [address] [place], [id number], 03/10/2025 07:37:49 03/05/20 25 03/05/2025 CULTU RE BODY FLUID note Unles s other jeffries noted testi ng perfo rmed at: [facility] [address] [place] [address] Chasity barr MD Not Available [facility] (Pre-Op [facility]) [address] [place] [address] [place], [id number], 03/10/2025 07:37:49 03/12/20 25 03/12/2025 GRAM STAIN source PERITO SAM Not Available [facility] (Pre-Op [facility]) [address] [place] [address] [place], [id number], 03/12/2025 15:28:33 03/12/20 25 03/12/2025 GRAM STAIN organism #1 NO ORGANI SMS Not Available [facility] ([facility]) [address] [place] [address] [place], [address], 03/12/2025 15:28:33 03/12/20 25 03/12/2025 GRAM STAIN WBC FEW no WBC's seen Not Available [facility] ([facility]Op [facility]) [address] [place] [address] [place], [address], 03/12/2025 15:28:33 03/12/20 25 03/12/2025 GRAM STAIN yeast NONE SEEN none seen Not Available [facility] ([facility]) [address] [place] [address] [place], [address], 03/12/2025 15:28:33 03/12/20 25 03/12/2025 GRAM STAIN gram positive QC slide PASS PASS Not Available [facility] ([facility]) [address] [facility] [place], [address], 03/12/2025 15:28:33 03/12/20 25 03/12/2025 GRAM STAIN gram negative QC slide PASS PASS Not Available [facility] ([facility]) [address] [place] [address] [place], [address], 03/12/2025 15:28:33 03/12/20 25 03/12/2025 GRAM STAIN note Unles s other jeffries noted testi ng [facility] [address] [place] [address] Chasity barr MD Not Available [facility] ([facility]) [address] [place] [address] [place], [address], 03/12/2025 15:28:33 03/12/20 25 03/12/2025 CELL COUNT body fluid count performed by: AUTOMA RODRIGO COUNT Not Available [facility] ([facility]) [address] [place] [address] [place], [address], 03/12/2025 15:40:42 03/12/20 25 03/12/2025 CELL COUNT source PERITO SAM Not Available [facility] ([facility]) [address] [place] [address] [place], [address], 03/12/2025 15:40:42 03/12/20 25 03/12/2025 CELL COUNT color YELLOW clear Not Available [facility] ([facility]) [address] [place] [address] [place], [address], 03/12/2025 15:40:42 03/12/20 25 03/12/2025 CELL COUNT apperance HAZY clear Not Available [facility] ([facility]) [address] [place] [address] [place], [address], 03/12/2025 15:40:42 03/12/20 25 03/12/2025 CELL COUNT volume 4000 cc Not Available [facility] ([facility]) [address] [place] [address] [place], [address], 03/12/2025 15:40:42 03/12/20 25 03/12/2025 CELL COUNT viscosity NORMAL normal Not Available [facility] ([facility]) [address] [place] [address] [place], [address], 03/12/2025 15:40:42 03/12/20 25 03/12/2025 CELL COUNT WBC 364 /uL Not Available [facility] ([facility]) [address] [place] [address] [place], [address], 03/12/2025 15:40:42 03/12/20 25 03/12/2025 CELL COUNT RBC 2000 /uL Not Available [facility] ([facility]) [address] [place] [address] [place], [address], 03/12/2025 15:40:42 03/12/20 25 03/12/2025 CELL COUNT polynuclear 9 % Not Available [facility] ([facility]) [address] [place] [address] [place], [address], 03/12/2025 15:40:42 03/12/20 25 03/12/2025 CELL COUNT mononuclear 91 % ALL COUNT S PERFO RMED ON HEMAC YTOME TER [facility]. Not Available [facility] ([facility]) [address] [place] [address] [place], [address], 03/12/2025 15:40:42 03/12/20 25 03/12/2025 CELL COUNT note Unles s other jeffries noted testi ng perfo rmed at: [facility] [address] [place] [address] Chasity barr MD Not Available [facility] ([facility]) [address] [place] [address] [place], [address], 03/12/2025 15:40:42 03/12/20 25 03/12/2025 CULTU RE BODY FLUID results [facility] 03-13 1122 No Growt h at [address] [facility] 03-14 1006 No Growt h at 2 Days [facility] 03-15 528 No Growt h at 3 Days Not Available [facility] ([facility]) [address] [place] [address] [place], [address], 03/15/2025 05:29:36 03/12/20 25 03/12/2025 CULTU RE BODY FLUID note Unles s other jeffries noted testi ng perfo rmed at: [facility] [address] [place] [address] Chasity barr MD Not Available [facility] ([facility]) [address] [place] [address] [place], [address], 03/15/2025 05:29:36 03/19/20 25 03/19/2025 GRAM STAIN source PERITO SAM Not Available [facility] ([facility]) [address] [place] [address] [place], [address], 03/19/2025 15:38:23 03/19/20 25 03/19/2025 GRAM STAIN organism #1 NO ORGANI SMS Not Available [facility] ([facility]) [address] [place] [address] [place], [address], 03/19/2025 15:38:23 03/19/20 25 03/19/2025 GRAM STAIN WBC RARE no WBC's seen Not Available [facility] ([facility]) [address] [place] [address] [place], [address], 03/19/2025 15:38:23 03/19/20 25 03/19/2025 GRAM STAIN yeast NONE SEEN none seen Not Available [facility] ([facility]) [address] [place] [address] [place], [address], 03/19/2025 15:38:23 03/19/20 25 03/19/2025 GRAM STAIN gram positive QC slide PASS PASS Not Available [facility] ([facility]) [address] [place] [address] [place], [address], 03/19/2025 15:38:23 03/19/20 25 03/19/2025 GRAM STAIN gram negative QC slide PASS PASS Not Available [facility] ([facility]) [address] [place] [address] [place], [address], 03/19/2025 15:38:23 03/19/20 25 03/19/2025 GRAM STAIN note Unles s other jeffries noted testi ng perfo rmed at: [facility] [address] [place] [address] Chasity barr MD Not Available [facility] ([facility]) [address] [place] [address] [place], [address], 03/19/2025 15:38:23 03/19/20 25 03/19/2025 CELL COUNT body fluid count performed by: AUTOMA RODRIGO COUNT Not Available [facility] ([facility]) [address] [place] [address] [place], [address], 03/19/2025 15:41:38 03/19/20 25 03/19/2025 CELL COUNT source PERITO SAM Not Available [facility] ([facility]) [address] [place] [address] [place], [address], 03/19/2025 15:41:38 03/19/20 25 03/19/2025 CELL COUNT color YELLOW clear Not Available [facility] ([facility]) [address] [place] [address] [place], [address], 03/19/2025 15:41:38 03/19/20 25 03/19/2025 CELL COUNT apperance HAZY clear Not Available [facility] ([facility]) [address] [place] [address] [place], [address], 03/19/2025 15:41:38 03/19/20 25 03/19/2025 CELL COUNT volume 3500 cc Not Available [facility] ([facility]) [address] [place] [address] [place], [address], 03/19/2025 15:41:38 03/19/20 25 03/19/2025 CELL COUNT viscosity NORMAL normal Not Available [facility] ([facility]) [address] [place] [address] [place], [address], 03/19/2025 15:41:38 03/19/20 25 03/19/2025 CELL COUNT WBC 361 /uL Not Available [facility] ([facility]) [address] [place] [address] [place], [address], 03/19/2025 15:41:38 03/19/20 25 03/19/2025 CELL COUNT RBC <1000 /uL Not Available [facility] ([facility]) [address] [place] [address] [place], [address], 03/19/2025 15:41:38 03/19/20 25 03/19/2025 CELL COUNT polynuclear 18.5 % Not Available [facility] ([facility]) [address] [place] [address] [place], [address], 03/19/2025 15:41:38 03/19/20 25 03/19/2025 CELL COUNT mononuclear 81.5 % ALL COUNT S PERFO RMED ON HEMAC YTOME TER ARE DONE IN [facility]. Not Available [facility] ([facility]) [address] [place] [address] [place], [address], 03/19/2025 15:41:38 03/19/20 25 03/19/2025 CELL COUNT note Unles s other jeffries noted testi ng perfo rmed at: [facility] [address] [place] [address] Chasity barr MD Not Available [facility]) [address] [place] [address] [place], [address], 03/19/2025 15:41:38 03/19/20 25 03/19/2025 CULTU RE BODY FLUID results [facility] 03-21 928 No Growt h at 1 Day [facility] 03-22 958 No Growt h at 2 Days [facility] 03-23 655 No Growt h at 3 Days Not Available [facility] ([facility]) [address] [place] [address] [place], [address], 03/23/2025 06:56:03 03/19/20 25 03/19/2025 CULTU RE BODY FLUID note Unles s other jeffries noted testi ng perfo rmed at: [facility] [address] [place] [address] Chasity barr MD Not Available [facility]) [address] [place] [address] [place], [address], 03/23/2025 06:56:03 03/26/20 25 03/26/2025 CELL COUNT body fluid count performed by: AUTOMA RODRIGO COUNT Not Available [facility] ([facility]) [address] [place] [address] [place], [address], 03/26/2025 13:16:37 03/26/20 25 03/26/2025 CELL COUNT source PERITO SAM Not Available [facility] ([facility]) [address] [place] [address] [place], [address], 03/26/2025 13:16:37 03/26/20 25 03/26/2025 CELL COUNT color YELLOW clear Not Available [facility]) [address] [place] [address] [place], [address], 03/26/2025 13:16:37 03/26/20 25 03/26/2025 CELL COUNT apperance CLEAR clear Not Available [facility] ([facility]) [address] [place] [address] [place], [address], 03/26/2025 13:16:37 03/26/20 25 03/26/2025 CELL COUNT volume 5900 cc Not Available [facility]) [address] [place] [address] [place], [address], 03/26/2025 13:16:37 03/26/20 25 03/26/2025 CELL COUNT viscosity NORMAL normal Not Available [facility] ([facility]) [address] [place] [address] [place], [address], 03/26/2025 13:16:37 03/26/20 25 03/26/2025 CELL COUNT WBC 261 /uL Not Available [facility]) [address] [place] [address] [place], [address], 03/26/2025 13:16:37 03/26/20 25 03/26/2025 CELL COUNT RBC 2000 /uL Not Available [facility] ([facility]) [address] [place] [address] [place], [address], 03/26/2025 13:16:37 03/26/20 25 03/26/2025 CELL COUNT polynuclear 9 % Not Available [facility] ([facility]) [address] [place] [address] [place], [address], 03/26/2025 13:16:37 03/26/20 25 03/26/2025 CELL COUNT mononuclear 91 % ALL COUNT S PERFO RMED ON HEMAC YTOME TER ARE D[facility]. Not Available [facility] ([facility]) [address] [place] [address] [place], [address], 03/26/2025 13:16:37 03/26/20 25 03/26/2025 CELL COUNT note Unles s other jeffries noted testi ng perfo rmed at: [facility] [address] [place] [address] Chasity barr MD Not Available [facility]) [address] [place] [address] [place], [address], 03/26/2025 13:16:37 03/26/20 25 03/26/2025 CULTU RE BODY FLUID results [facility] 03-27 1134 No Growt h at 1 Day [facility] 03-28 937 No Growt h at 2 Days [facility] 03-29 653 No Growt h at 3 Days Not Available [facility]) [address] [place] [address] [place], [address], 03/29/2025 06:55:28 03/26/20 25 03/26/2025 CULTU RE BODY FLUID note Unles s other jeffries noted testi ng perfo rmed at: [facility] [address] [place] [address] Chasity barr MD Not Available [facility]) [address] [place] [address] [place], [address], 03/29/2025 06:55:28 03/26/20 25 03/26/2025 GRAM STAIN source PERITO SAM Not Available [facility]) [address] [place] [address] [place], [address], 03/26/2025 15:16:38 03/26/20 25 03/26/2025 GRAM STAIN organism #1 NO ORGANI SMS Not Available [facility]) [address] [place] [address] [place], [address], 03/26/2025 15:16:38 03/26/20 25 03/26/2025 GRAM STAIN WBC RARE no WBC's seen Not Available [facility]) [address] [place] [address] [place], [address], 03/26/2025 15:16:38 03/26/20 25 03/26/2025 GRAM STAIN yeast NONE SEEN none seen Not Available [facility]) [address] [place] [address] [place], [address], 03/26/2025 15:16:38 03/26/20 25 03/26/2025 GRAM STAIN gram positive QC slide PASS PASS Not Available [facility]) [address] [place] [address] [place], [address], 03/26/2025 15:16:38 03/26/20 25 03/26/2025 GRAM STAIN gram negative QC slide PASS PASS Not Available [facility]) [address] [place] [address] [place], [address], 03/26/2025 15:16:38 03/26/20 25 03/26/2025 GRAM STAIN note Unles s other jeffries noted testi ng perfo rmed at: [facility] [address] [place] [address] Chasity barr MD Not Available [facility]) [address] [place] [address] [place], [address], 03/26/2025 15:16:38 04/02/20 25 04/02/2025 CELL COUNT body fluid count performed by: MANUAL COUNT Not Available [facility]) [address] [place] [address] [place], [address], 04/02/2025 16:20:39 04/02/20 25 04/02/2025 CELL COUNT source PERITO SAM Not Available [facility]) [address] [place] [address] [place], [address], 04/02/2025 16:20:39 04/02/20 25 04/02/2025 CELL COUNT color YELLOW clear Not Available [facility]) [address] [place] [address] [place], [address], 04/02/2025 16:20:39 04/02/20 25 04/02/2025 CELL COUNT apperance CLOUDY clear Not Available [facility]) [address] [place] [address] [place], [address], 04/02/2025 16:20:39 04/02/20 25 04/02/2025 CELL COUNT volume 6100 cc Not Available [facility]) [address] [place] [address] [place], [address], 04/02/2025 16:20:39 04/02/20 25 04/02/2025 CELL COUNT viscosity NORMAL normal Not Available [facility]) [address] [place] [address] [place], [address], 04/02/2025 16:20:39 04/02/20 25 04/02/2025 CELL COUNT WBC 328 /uL Not Available [facility]) [address] [place] [address] [place], [address], 04/02/2025 16:20:39 04/02/20 25 04/02/2025 CELL COUNT RBC <1000 /uL Not Available [facility]) [address] [place] [address] [place], [address], 04/02/2025 16:20:39 04/02/20 25 04/02/2025 CELL COUNT polynuclear 20 % Not Available [facility]) [address] [place] [address] [place], [address], 04/02/2025 16:20:39 04/02/20 25 04/02/2025 CELL COUNT mononuclear 80 % ALL COUNT S PERFO RMED ON HEMAC YTOME TER ARE [facility]. Not Available [facility]) [address] [place] [address] [place], [address], 04/02/2025 16:20:39 04/02/20 25 04/02/2025 CELL COUNT note Unles s other jeffries noted testi ng perfo rmed at: [facility] [address] [place] [address] Chasity barr MD Not Available [facility]) [address] [place] [address] [place], [address], 04/02/2025 16:20:39 04/02/20 25 04/02/2025 GRAM STAIN source BF Not Available [facility]) [address] [place] [address] [place], [address], 04/02/2025 17:02:56 04/02/20 25 04/02/2025 GRAM STAIN organism #1 NO ORGANI SMS Not Available [facility]) [address] [place] [address] [place], [address], 04/02/2025 17:02:56 04/02/20 25 04/02/2025 GRAM STAIN WBC RARE no WBC's seen Not Available [facility]) [address] [place] [address] [place], [address], 04/02/2025 17:02:56 04/02/20 25 04/02/2025 GRAM STAIN yeast NONE SEEN none seen Not Available [facility]) [address] [place] [address] [place], [address], 04/02/2025 17:02:56 04/02/20 25 04/02/2025 GRAM STAIN gram positive QC slide PASS PASS Not Available [facility]) [address] [place] [address] [place], [address], 04/02/2025 17:02:56 04/02/20 25 04/02/2025 GRAM STAIN gram negative QC slide PASS PASS Not Available [facility]) [address] [place] [address] [place], [address], 04/02/2025 17:02:56 04/02/20 25 04/02/2025 GRAM STAIN note Unles s other jeffries noted testi ng perfo rmed at: [facility] [address] [place] [address] Chasity barr MD Not Available [facility]) [address] [place] [address] [place], [address], 04/02/2025 17:02:56 04/02/20 25 04/02/2025 CULTU RE BODY FLUID results [facility] 04-03 1115 No Growt h at 1 Day AE 04-04 817 No Growt h at 2 Days RK 04-06 1130 No Growt h at 3 Days Not Available [facility]) [address] [place] [address] [place], [address], 04/06/2025 11:31:15 04/02/20 25 04/02/2025 CULTU RE BODY FLUID note Unles s other jeffries noted testi ng perfo rmed at: [facility] [address] [place] [address] Chasity barr MD Not Available [facility]) [address] [place] [address] [place], [address], 04/06/2025 11:31:15 04/09/20 25 04/09/2025 GRAM STAIN source PERITO SAM Not Available [facility]) [address] [place] [address] [place], [address], 04/09/2025 16:04:42 04/09/20 25 04/09/2025 GRAM STAIN organism #1 NO ORGANI SMS Not Available [facility]) [address] [place] [address] [place], [address], 04/09/2025 16:04:42 04/09/20 25 04/09/2025 GRAM STAIN WBC MODERA TE no WBC's seen Not Available [facility]) [address] [place] [address] [place], [address], 04/09/2025 16:04:42 04/09/20 25 04/09/2025 GRAM STAIN yeast NONE SEEN none seen Not Available [facility]) [address] [place] [address] [place], [address], 04/09/2025 16:04:42 04/09/20 25 04/09/2025 GRAM STAIN gram positive QC slide BY MICRO TECH PASS Not Available [facility]) [address] [place] [address] [place], [address], 04/09/2025 16:04:42 04/09/20 25 04/09/2025 GRAM STAIN gram negative QC slide BY MICRO TECH PASS Not Available [facility]) [address] [place] [address] [place], [address], 04/09/2025 16:04:42 04/09/20 25 04/09/2025 GRAM STAIN note Unles s other jeffries noted testi ng perfo rmed at: [facility] [address] [place] [address] Chasity barr MD Not Available [facility]) [address] [place] [address] [place], [address], 04/09/2025 16:04:42 04/09/20 25 04/09/2025 CELL COUNT body fluid count performed by: AUTOMA RODRIGO COUNT Not Available [facility]) [address] [place] [address] [place], [address], 04/09/2025 16:13:10 04/09/20 25 04/09/2025 CELL COUNT source PERITO SAM Not Available [facility]) [address] [place] [address] [place], [address], 04/09/2025 16:13:10 04/09/20 25 04/09/2025 CELL COUNT color YELLOW clear Not Available [facility]) [address] [place] [address] [place], [address], 04/09/2025 16:13:10 04/09/20 25 04/09/2025 CELL COUNT apperance HAZY clear Not Available [facility]) [address] [place] [address] [place], [address], 04/09/2025 16:13:10 04/09/20 25 04/09/2025 CELL COUNT volume 6700 cc Not Available [facility]) [address] [place] [address] [place], [address], 04/09/2025 16:13:10 04/09/20 25 04/09/2025 CELL COUNT viscosity NORMAL normal Not Available [facility]) [address] [place] [address] [place], [address], 04/09/2025 16:13:10 04/09/20 25 04/09/2025 CELL COUNT WBC 218 /uL Not Available [facility]) [address] [place] [address] [place], [address], 04/09/2025 16:13:10 04/09/20 25 04/09/2025 CELL COUNT RBC 2000 /uL Not Available [facility]) [address] [place] [address] [place], [address], 04/09/2025 16:13:10 04/09/20 25 04/09/2025 CELL COUNT polynuclear 8 % Not Available [facility]) [address] [place] [address] [place], [address], 04/09/2025 16:13:10 04/09/20 25 04/09/2025 CELL COUNT mononuclear 92 % ALL COUNT S PERFO RMED ON H[facility]. Not Available [facility] [address] [place] [address] [place], [address], 04/09/2025 16:13:10 04/09/20 25 04/09/2025 CELL COUNT note Unles s other jeffries noted testi ng perfo rmed at: [facility] [address] [place] [address] Chasity barr MD Not Available [facility] [address] [place] [address] [place], [address], 04/09/2025 16:13:10 04/09/20 25 04/09/2025 CULTU RE BODY FLUID results [facility] 04-10 1121 No Growt h at [address] [facility] 04-11 909 No Growt h at [address] [facility] 04-12 651 No Growt h at 3 Days Not Available [facility]) [address] [place] [address] [place], [address], 04/12/2025 06:52:53 04/09/20 25 04/09/2025 CULTU RE BODY FLUID note Unles s other jeffries noted testi ng perfo rmed at: [facility] [address] [place] [address] Chasity barr MD Not Available [facility]) [address] [place] [address] [place], [address], 04/12/2025 06:52:53 04/14/20 25 04/14/2025 CELL COUNT body fluid count performed by: AUTOMA RODRIGO COUNT Not Available [facility]) [address] [place] [address] [place], [address], 04/14/2025 10:55:40 04/14/20 25 04/14/2025 CELL COUNT source PERITO SAM Not Available [facility]) [address] [place] [address] [place], [address], 04/14/2025 10:55:40 04/14/20 25 04/14/2025 CELL COUNT color STRAW clear Not Available [facility]) [address] [place] [address] [place], [address], 04/14/2025 10:55:40 04/14/20 25 04/14/2025 CELL COUNT apperance HAZY clear Not Available [facility]) [address] [place] [address] [place], [address], 04/14/2025 10:55:40 04/14/20 25 04/14/2025 CELL COUNT volume 4000 cc Not Available [facility] [address] [place] [address] [place], [address], 04/14/2025 10:55:40 04/14/20 25 04/14/2025 CELL COUNT viscosity NORMAL normal Not Available [facility] ([facility]) [address] [place] [address] [place], [address], 04/14/2025 10:55:40 04/14/20 25 04/14/2025 CELL COUNT WBC 244 /uL Not Available [facility] ([facility]) [address] [place] [address] [place], [address], 04/14/2025 10:55:40 04/14/20 25 04/14/2025 CELL COUNT RBC <1000 /uL Not Available [facility] ([facility]) [address] [place] [address] [place], [address], 04/14/2025 10:55:40 04/14/20 25 04/14/2025 CELL COUNT polynuclear 14.4 % Not Available [facility] ([facility]) [address] [place] [address] [place], [address], 04/14/2025 10:55:40 04/14/20 25 04/14/2025 CELL COUNT mononuclear 85.6 % ALL COUNT S PERFO RMED ON HEMAC YTOME TER ARE DONE IN [facility] [place]. Not Available [facility] [facility] [address] [place] [address] [place], [address], 04/14/2025 10:55:40 04/14/20 25 04/14/2025 CELL COUNT note Unles s other jeffries noted testi ng perfo rmed at: [facility] [address] [place] [address] Chasity barr MD Not Available [facility] (Pre-Op [facility]) [address] [place] [address] [place], [address], 04/14/2025 10:55:40 04/14/20 25 04/14/2025 CULTU RE BODY FLUID results B 04-15 728 No Growt h at 1 Day AEH 04-16 840 No Growt h at 2 Days AEH 04-17 926 No Growt h at 3 Days Not Available [facility] ([facility]Op [facility]) [address] [place] [address] [place], [address], 04/17/2025 09:27:26 04/14/20 25 04/14/2025 CULTU RE BODY FLUID note Unles s other jeffries noted testi ng perfo rmed at: [facility] [address] [place] [address] Chasity barr MD Not Available [facility] ([facility]Op [facility]) [address] [place] [address] [place], [address], 04/17/2025 09:27:26 04/14/20 25 04/14/2025 GRAM STAIN source PERITO SAM Not Available [facility] ([facility]) [address] [place] [address] [place], [address], 04/14/2025 11:32:47 04/14/20 25 04/14/2025 GRAM STAIN organism #1 NO ORGANI SMS Not Available [facility] ([facility]Op [facility]) [address] [place] [address] [place], [address], 04/14/2025 11:32:47 04/14/20 25 04/14/2025 GRAM STAIN WBC RARE no WBC's seen Not Available [facility] ([facility]-Op Clinic) [address] [place] [address] [place], [address], 04/14/2025 11:32:47 04/14/20 25 04/14/2025 GRAM STAIN yeast NONE SEEN none seen Not Available [facility] ([facility]) [address] [place] [address] [place], [address], 04/14/2025 11:32:47 04/14/20 25 04/14/2025 GRAM STAIN gram positive QC slide PASS PASS Not Available [facility] ([facility]) [address] [place] [address] [place], [address], 04/14/2025 11:32:47 04/14/20 25 04/14/2025 GRAM STAIN gram negative QC slide PASS PASS Not Available [facility] ([facility]) [address] [place] [address] [place], [address], 04/14/2025 11:32:47 04/14/20 25 04/14/2025 GRAM STAIN note Unles s other jeffries noted testi ng perfo rmed at: [facility] [address] [place] [address] Chasity barr MD Not Available [facility] ([facility]) [address] [place] [address] [place], [address], 04/14/2025 11:32:47 04/28/20 25 04/28/2025 CULTU RE BODY FLUID results [facility] 04-29 1124 No Growt h at 1 Day B 04-30 546 No Growt h at 2 Days B 05-01 522 No Growt h at 3 Days Not Available [facility] ([facility]Op [facility]) [address] [place] [address] [place], [address], 05/01/2025 05:24:37 04/28/20 25 04/28/2025 CULTU RE BODY FLUID note Unles s other jeffries noted testi ng perfo rmed at: [facility] [address] [place] [address] Chasity barr MD Not Available [facility] ([facility]) [address] [place] [address] [place], [address], 05/01/2025 05:24:37 04/28/20 25 04/28/2025 GRAM STAIN source PERITO SAM Not Available [facility] ([facility]) [address] [place] [address] [place], [address], 04/28/2025 13:36:11 04/28/20 25 04/28/2025 GRAM STAIN organism #1 NO ORGANI SMS Not Available [facility] ([facility]) [address] [place] [address] [place], [address], 04/28/2025 13:36:11 04/28/20 25 04/28/2025 GRAM STAIN WBC NO WBC'S SEEN no WBC's seen Not Available [facility] ([facility]) [address] [place] [address] [place], [address], 04/28/2025 13:36:11 04/28/20 25 04/28/2025 GRAM STAIN yeast NONE SEEN none seen Not Available [facility] ([facility]) [address] [place] [address] [place], [address], 04/28/2025 13:36:11 04/28/20 25 04/28/2025 GRAM STAIN gram positive QC slide BY MICRO TECH PASS Not Available [facility] ([facility]Op [facility]) [address] [place] [address] [place], [address], 04/28/2025 13:36:11 04/28/20 25 04/28/2025 GRAM STAIN gram negative QC slide BY MICRO TECH PASS Not Available [facility] ([facility]) [address] [place] [address] [place], [address], 04/28/2025 13:36:11 04/28/20 25 04/28/2025 GRAM STAIN note Unles s other jeffries noted testi ng perfo rmed at: [facility] [address] [place] [address] Chasity barr MD Not Available [facility] ([facility]) [address] [place] [address] [place], [address], 04/28/2025 13:36:11 04/28/20 25 04/28/2025 CELL COUNT body fluid count performed by: AUTOMA RODRIGO COUNT Not Available [facility] ([facility]) [address] [facility] [place], [address], 04/28/2025 14:53:24 04/28/20 25 04/28/2025 CELL COUNT source PERITO SAM Not Available [facility] ([facility]) [address] [facility] [place], [address], 04/28/2025 14:53:24 04/28/20 25 04/28/2025 CELL COUNT color STRAW clear Not Available [facility] ([facility]) [address] [facility] [place], [address], 04/28/2025 14:53:24 04/28/20 25 04/28/2025 CELL COUNT apperance CLEAR clear Not Available [facility] ([facility]Op [facility]) [address] [place] [address] [place], [address], 04/28/2025 14:53:24 04/28/20 25 04/28/2025 CELL COUNT viscosity NORMAL normal Not Available [facility] ([facility]) [address] [place] [address] [place], [address], 04/28/2025 14:53:24 04/28/20 25 04/28/2025 CELL COUNT WBC 288 /uL Not Available [facility] ([facility]Op [facility]) [address] [place] [address] [place], [address], 04/28/2025 14:53:24 04/28/20 25 04/28/2025 CELL COUNT RBC 2000 /uL Not Available [facility] ([facility]Op [facility]) [address] [place] [address] [place], [address], 04/28/2025 14:53:24 04/28/20 25 04/28/2025 CELL COUNT polynuclear 90 % Not Available [facility] ([facility]Op [facility]) [address] [place] [address] [place], [address], 04/28/2025 14:53:24 04/28/20 25 04/28/2025 CELL COUNT mononuclear 10 % ALL COUNT S PERFO RMED ON HEMAC YTOME TER ARE DONE IN [facility] [place]. Not Available [facility] ([facility]Op [facility]) [address] [place] [address] [place], [address], 04/28/2025 14:53:24 04/28/20 25 04/28/2025 CELL COUNT note Unles s other jeffries noted testi ng perfo rmed at: [facility] [address] [place] [address] Chasity barr MD Not Available [facility] ([facility]Op [facility]) [address] [place] [address] [place], [address], 04/28/2025 14:53:24 09/03/20 24 09/02/2024 US, liver No observ ation record ed. 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 Lester r was applsanjeev d as indica rodrigo. FINDIN GS: Liver: Cirrho tic hepati c morpho logy. 16.8 cm in length . Portal vein: Patent with hepato pedal flow Biliar y Tree: The common bile duct measur es 0.3 cm in diamet er. There is no biliar y ductal dilata tion. Gallbl adder: Cholec ystect lora Pancre as: The head of the pancre as is within normal limits . The distal pancre as is not visual ized due to bowel gas. Ascite s: No free fluid is demons trated . Kidney s: The right kidney measur es 11.6 cm in length . No hydron ephros is. IMPRES TIKA: Cirrho tic hepati c morpho logy. Electr onical ly signed by: Radha hope MD 2023 08:47 AM EST RP Workst ation: [id number] Dictat ed By: Radha Castañeda Transc ribed By: Transc ribed On: 2023 10:44 AM Electr onical ly signed by: Radha Castañeda 2023 Thank you for referr ing LUZ LONG to [facility]. Legall y authen ticate d by AARTI MAYBERRY MD 2023-11-02 10:44: 36 CC'ed Logic: Orderi ng Provid er: PIETRO Salazar CC Provid er: RATNA GILLIS Attend ing Provid er: PIETRO Salazar Referr ing Provid er: PIETRO Salazar Admitt ing Provid er: PIETRO Salazar [facility] (Radiology) [address] [place] [address] , [place], [address], 09/03/2024 15:43:09 Result Notes None recorded. Problems Name Problem SNOMED Code Status Onset Date Resolution Date Notes Provider Name and Address Organization Details Recorded Time Nausea and vomiting 52114232 Active 2022 Mary Lim NP [address], [address], [place], [address] , [facility] - [place] & [place] 3 10:32:37 Gastro-esophag eal reflux disease with esophagitis 792743859 Active 2022 Mary Lim NP [address], [address], [place], [address], [place] [facility] [place] & [place] 3 10:32:42 Esophageal dysphagia 92249573 Active 2022 Mary Lim NP [address], [address], [place], [address], [place] [facility] [place] & [place] 3 10:32:47 Cirrhosis of liver 78122727 Active 2022 Mary Lim NP [address], [address], [place], [address], [place] [facility] [place] & [place] 3 10:33:29 Irritable bowel syndrome characterized by constipation 892857066 Active 2022 Mary Lim NP [address], [address], [place], [address], [place] [facility] [place] & [place] 3 10:35:16 Gastroparesis syndrome 959110305 Active 2022 Mary Lim NP [address], [address], [place], [address], [place] [facility] [place] & [place] 3 10:16:12 Abnormal liver function 67722417 Active 2022 Mary Lim NP [address], [address], [place], [address], [place] [facility] [place] & [place] 3 10:17:06 Hematemesis 8547691 Active 2023 Mary Lim NP [address], [address], [place], [address], [place] [facility] [place] & [place] 4 14:55:13 Hematochezia 821318189 Active 2023 Mary Lim NP [address], [address], [place], [address], [place] [facility] [place] & [place] 4 14:55:26 Ascites 099154788 Active 2024 Mary Lim NP [address], [address], [facility] [place], [address], [place] [facility] [place] & [place] 11:40:32 Problem Notes None recorded. Procedures Surgical History Date Name Laterality Status Provider Name and Address Organization Details Recorded Time 024 EGD/Endoscopy completed Mary Lim NP [address], [address], [place], [address], [place] [facility] [place] & [place] 08/26/2024 15:18:45 024 Colonoscopy completed Mary Lim NP [address], [address], [place], [address], [place] [facility] [place] & [place] 08/26/2024 15:18:55 023 EGD/Endoscopy [place]en Frost [place] [facility] & [place] 01/02/2023 09:50:14 022 EMG/ Nerve Conduction Study completed Kevin Gray M.D [address] [facility], [address], [place], [address], [place] [facility] [place] & [place] 09/26/2022 13:00:24 022 completed [place]att Carl [place] [facility] [place] & [place] 08/26/2024 13:28:04 020 Date of Last Colonoscopy completed Katt Carl [place] [facility] [place] & [place] 08/26/2024 13:28:04 020 Date of Last Pap Smear completed Katt [place] - [facility] - [place] & [place] 08/26/2024 13:28:04 992 Gastrointestinal Surgery completed Annetta Johnson [place] - [facility] - [place] & [place] 07/01/2023 10:37:26 990 Other completed Katt [place] - [facility] - [place] & [place] 08/26/2024 13:28:11 Cholecystectomy completed Annetta [place] [facility] [place] & [place] 09/11/2022 08:39:10 Removal of fallopian tube completed Annetta [place] [facility] [place] & [place] 09/11/2022 08:39:25 Imaging Results None recorded. Procedure Notes None recorded. Medical Equipment None Reported. Allergies Allergen ID Allergen Name Allergen Category Reaction Reaction Severity Criticality Documentation Date Start Date Code Code System Note Provider Name and Address Organization Details Recorded Time 88899 Chantix medicatio n Not available Not available Not available 09/11/2022 52901 0 RxNorm JAMIE Lemons [facility] & [place] 2 08:37:50 [address]9554 E-Mycin medicatio n Not available Not available Not available 09/11/202243802 8 RxNorm JAMIE Lemons [facility] & [place] 2 08:38:03 [address]695 Jardiance medicatio n Not available Not available Not available 07/01/2023 36527 59 [facility] [place] 3 10:37:24 Medications Name Sig Start Date Stop Date Status Note LastModified by Organization Details LastModified Time cyclobenzap rine 10 mg tablet TAKE 1 TABLET 1 TIME EACH DAY AT BEDTIME NEEDED FOR MUSCLE SPASMS 07/10 completed Not Available Not Available Not Available furosemide 40 mg tablet Take 2 tablets every day by oral route for 30 days. 2024 active Not Available Not Available Not Avai lable lamotrigine 150 mg tablet TAKE 1 TABLET 1 TIME EACH DAY IN THE MORNING active Not Available Not Available No t Available gabapentin 600 mg tablet TAKE 1 TABLET 4 TIMES EACH DAY 09/11 completed Not Available Not Available Not Available ropinirole 1 mg tablet TAKE 1 TABLET 1 TIME EACH DAY AT BEDTIME FOR RESTLESS LEGS active Not Available Not Available No t Available nicotine 14 mg/24 hr daily transdermal patch APPLY 1 PATCH TO THE SKIN ONE TIME EACH DAY. active Not Available Not Available No t Available trazodone 50 mg tablet TAKE 1 TABLET 1 TIME EACH DAY AT BEDTIME 07/10 completed Not Available Not Available Not Available ibuprofen 800 mg tablet TAKE 1 TABLET 1 TIME EACH DAY NEEDED FOR PAIN 02/18 completed Not Available Not Available Not Available albuterol sulfate 1.25 mg/3 mL solution for nebulizatio n INHALE CONTENTS OF 1 VIAL USING A NEBULIZER EVERY 6 HOURS NEEDED FOR WHEEZING 08/26 completed Not Available Not Available Not Available ondansetron HCl 4 mg tablet TAKE 1 TABLET EVERY 4 TO 6 HOURS NEEDED 02/18 completed Not Available Not Available Not Available famotidine 40 mg tablet TAKE 1 TABLET 1 TIME EACH DAY AT BEDTIME active Not Available Not Available No t Available prednisone 20 mg tablet TAKE 2 AND 1/2 TABLETS ONCE A DAY FOR 4 DAYS 07/10 completed Not Available Not Available Not Available spironolact one 100 mg tablet Take 2 tablets every day by oral route for 30 days. 2024 active Not Available Not Available Not Avai lable glipizide ER 5 mg tablet, extended release 24 hr TAKE 1 TABLET 1 TIME EACH DAY WITH BREAKFAST 07/10 completed Not Available Not Available Not Available olanzapine 10 mg tablet TAKE 1 TABLET 1 TIME EACH DAY 07/10 completed Not Available Not Available Not Available metronidazo le 500 mg tablet TAKE 1 TABLET EVERY 8 HOURS FOR 7 DAYS 08/26 completed Not Available Not Available Not Available ciprofloxac in 500 mg tablet TAKE 1 TABLET EVERY 12 HOURS FOR 7 DAYS 06/04 completed Not Available Not Available Not Available omeprazole 40 mg capsule,del ayed release TAKE 1 CAPSULE 2 TIMES EACH DAY active Not Available Not Available No t Available tramadol 50 mg tablet TAKE 1 TABLET 2 TIMES EACH DAY NEEDED 02/18 completed Not Available Not Available Not Available spironolact one 25 mg tablet TAKE 1 TABLET 1 TIME EACH DAY IN THE MORNING FOR LIVER active Not Available Not Available No t Available lamotrigine 25 mg tablet TAKE 1 TABLET 1 TIME EACH DAY FOR 14 DAYS. THEN, TAKE 2 TABLETS 1 TIME EACH DAY. 09/11 completed Not Available Not Available Not Available metoclopram ramakrishna 5 mg tablet TAKE 1 TABLET 3 TIMES EACH DAY 02/18 completed Not Available Not Available Not Available gabapentin 800 mg tablet TAKE 1 TABLET 4 TIMES EACH DAY active Not Available Not Available No t Available bisacodyl 10 mg rectal suppository INSERT 1 SUPPOSITO RY INTO THE RECTUM 1 TIME EACH DAY NEEDED FOR CONSTIPAT ION 05/10 completed Not Available Not Available Not Available ropinirole 2 mg tablet TAKE 1 TABLET 1 TIME EACH DAY AT BEDTIME FOR RESTLESS LEGS active Not Available Not Available No t Available pantoprazol e 40 mg tablet,shanell yed release TAKE 1 TABLET 1 TIME EACH DAY 07/10 completed Not Available Not Available Not Available Gentle Laxative (bisacodyl) 5 mg tablet,shanell yed release TAKE 2 TABLETS DIRECTED FOR BOWEL PREP 07/10 completed Not Available Not Available Not Available nicotine 21 mg/24 hr daily transdermal patch APPLY 1 PATCH ONTO THE SKIN 1 TIME EACH DAY DIRECTED. REMOVE BEFORE APPLYING NEXT PATCH. 08/26 completed Not Available Not Available Not Available hydrochloro thiazide 12.5 mg capsule TAKE 1 CAPSULE 1 TIME EACH DAY IN THE MORNING FOR FLUID active Not Available Not Available No t Available nitroglycer in 0.4 mg sublingual tablet DISSOLVE 1 TABLET UNDER THE TONGUE EVERY 5 MINUTES NEEDED FOR CHEST PAIN. IF 3 TABLETS ARE NEEDED, GO TO EMERGENCY ROOM. 08/26 completed Not Available Not Available Not Available hydroxyzine HCl 25 mg tablet TAKE 1 TABLET 1 TIME EACH DAY active Not Available Not Available No t Available hydrochloro thiazide 25 mg tablet TAKE 1 TABLET 1 TIME EACH DAY 02/18 completed Not Available Not Available Not Available pioglitazon e 30 mg tablet TAKE 1 TABLET 1 TIME EACH DAY FOR DIABETES 07/10 completed Not Available Not Available Not Available cefdinir 300 mg capsule TAKE 1 CAPSULE 2 TIMES EACH DAY FOR 5 DAYS 05/10 completed Not Available Not Available Not Available lamotrigine 100 mg tablet TAKE 1 TABLET 1 TIME EACH DAY 09/11 completed Not Available Not Available Not Available spironolact one 50 mg tablet TAKE 2 TABLETS 1 TIME EACH DAY active Not Available Not Available No t Available diazepam 5 mg tablet TAKE 1 TABLET 30 MINUTES BEFORE MRI, MAY TAKE OTHER TABLETS IF NEEDED. 07/01 completed Not Available Not Available Not Available amoxicillin 875 mg-potassiu m clavulanate 125 mg tablet TAKE 1 TABLET EVERY 12 HOURS FOR 7 DAYS 06/04 completed Not Available Not Available Not Available bacitracin- polymyxin B 500 unit-10,000 unit/gram eye ointment APPLY TO BOTH EYELIDS 1 TIME EACH DAY AT BEDTIME 05/10 completed Not Available Not Available Not Available rosuvastati n 20 mg tablet TAKE 1 TABLET 1 TIME EACH DAY active Not Available Not Available No t Available duloxetine 60 mg capsule,del ayed release TAKE 1 CAPSULE 2 TIMES EACH DAY active Not Available Not Available No t Available BD Ultra-Fine Mini Pen Needle 31 gauge x 3/16 USE TO INJECT INSULIN 4 TIMES EACH DAY 07/10 completed Not Available Not Available Not Available lactulose 10 gram/15 mL oral solution TAKE 30 ML 1 TIME EACH DAY FOR LIVER active Not Available Not Available No t Available fenofibrate nanocrystal lized 145 mg tablet TAKE 1 TABLET 1 TIME EACH DAY active Not Available Not Available No t Available Januvia 50 mg tablet TAKE 1 TABLET 1 TIME EACH DAY 05/10 completed Not Available Not Available Not Available Lantus Solostar U-100 Insulin 100 unit/mL (3 mL) subcutaneou s pen INJECT 34 UNITS 1 TIME EACH DAY IN THE EVENING PLUS TITRATION ADVISED. MAX DAILY DOSE OF 50 UNITS. active Not Available Not Available No t Available Humalog KwikPen (U-100) Insulin 100 unit/mL subcutaneou s INJECT 10-12 UNITS 3 TIMES EACH DAY BEFORE MEALS. FOR EVERY 30 UNITS THAT BLOOD SUGAR IS OVER 150, ADD 1 UNIT OF INSULIN. MAX DAILY DOSE OF 60 UNITS. active Not Available Not Available No t Available diclofenac 1 % topical gel APPLY 2 GRAMS TO THE SKIN OVER THE PAINFUL AREA 4 TIMES EACH DAY 07/10 completed Not Available Not Available Not Available ClearLax 17 gram/dose oral powder MIX 10 CAPFULS IN 32 OUNCE GATORADE AND DRINK AT 4 PM THE DAY BEFORE PROCEDURE . REPEAT AT 4 AM THE MORNING OF PROCEDURE 07/10 completed Not Available Not Available Not Available Linzess 290 mcg capsule TAKE 1 CAPSULE 1 TIME EACH DAY 2024 active Not Available Not Available Not Avai lable Comfort EZ Pen [place] 32 gauge x 5/32 USE TO INJECT INSULIN 4 TIMES EACH DAY DIRECTED active Not Available Not Available No t Available True Metrix Glucose Test Strip USE TO CHECK BLOOD SUGAR 4 TIMES EACH DAY active Not Available Not Available No t Available True Metrix Glucose Meter USE DIRECTED TO MEASURE BLOOD SUGAR active Not Available Not Available No t Available Dexcom G6 Transmitter device USU TO MEASURE BLOOD SUGAR DIRECTED. REPLACE AFTER 90 DAYS. 07/10 completed Not Available Not Available Not Available Motegrity 2 mg tablet Take 1 tablet every day by oral route for 90 days. 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 REPLACE EVERY 10 DAYS. active Not Available Not Available No t Available Clenpiq 10 mg-3.5 gram-12 gram/175 mL oral solution TAKE 175 ML BETWEEN 5 PM AND 9 PM THE EVENING BEFORE THE COLONOSCO PY. THEN, TAKE 175 ML ABOUT 5 HOURS BEFORE THE COLONOSCO PY. 06/04 completed Not Available Not Available Not Available Vitals Date Recorded Body height Body mass index (BMI) Body weight Body temperature Oxygen saturation Oxygen saturation in Arterial blood by Pulse oximetry Heart rate Provider Name and Address Organization Details Last Updated DateTime 5 172.72 cm 31.4 kg/m2 99295.7 5 g 97.4 [degF] 97 % 97 % 88 /min Katt Carl [facility] & [place] 5 10:46:23 Date Recorded Body height Body mass index (BMI) Body weight Body temperature Oxygen saturation Oxygen saturation in Arterial blood by Pulse oximetry Heart rate Provider Name and Address Organization Details Last Updated DateTime 5 172.72 cm 31.9 kg/m2 64244.6 8 g 97.4 [degF] 99 % 99 % 91 /min Katt Carl [facility] & [place] 5 13:22:50 Date Recorded Body height Body mass index (BMI) Body weight Body temperature Oxygen saturation Oxygen saturation in Arterial blood by Pulse oximetry Heart rate Provider Name and Address Organization Details Last Updated DateTime 4 172.72 cm 30 kg/m2 96974.7 g 97.6 [degF] 98 % 98 % 80 /min Vee Fournier [place] [facility] & [place] 4 14:35:14 Date Recorded Body height Body mass index (BMI) Body weight Body temperature Oxygen saturation Oxygen saturation in Arterial blood by Pulse oximetry Heart rate Provider Name and Address Organization Details Last Updated DateTime 4 172.72 cm 29.3 kg/m2 77136.3 3 g 97.4 [degF] 97 % 97 % 90 /min Vee Fournier [facility] & [place] 4 13:20:10 Date Recorded Body height Body mass index (BMI) Body weight Body temperature Oxygen saturation Oxygen saturation in Arterial blood by Pulse oximetry Heart rate Provider Name and Address Organization Details Last Updated DateTime 4 172.72 cm 30.5 kg/m2 95416.3 5 g 98.1 [degF] 97 % 97 % 74 /min Katt Henry [facility] & [place] 4 13:27:58 Social History Question Answer Notes LastModified by Room[employer] Details LastModified Time Tobacco Smoking Status Current Every Day Smoker Annetta [facility] & [place] 09/11/2022 08:40:15 Do You Have An Advance Directive? No [email or web address] Information not available 07/01/2023 Are You Blind Or Do You Have Difficulty Seeing? No [email or web address] Information not available 07/01/2023 What Was The Date Of Your Most Recent Tobacco Screening? 10/16/2021 Information not available 08/26/2024 Are You Passively Exposed To Smoke? Yes [email or web address] Information not available 07/01/2023 How Much Tobacco Do You Smoke? 1 PPD Information not available 07/01/2023 How Many Years Have You Smoked Tobacco? 26 Information not available 08/26/2024 Sex: Female Functional Status Question Answer Note LastModified by [email or web address] ion Details LastModified Time Do you use any illicit or recreational drugs? Yes Information not available 07/01/2023 What is your level of alcohol consumption? None [email or web address] Information not available 07/01/2023 Do you or have you ever used smokeless tobacco? [id number] [email or web address] Information n ot available 07/01/2023 What is your exercise level? None Information not available 08/26/2024 Mental Status Question Answer Note LastModified by Organization D etails LastModified Time Do you feel stressed (tense, restless, nervous, or anxious, or unable to sleep at night)? [id number] Information not available 07/01/2023 Family History Relationship Description Onset Age of this Age Resolved Age Notes LastModified by Organization Details LastModified Time Mother Hypertensive disorder [email or web address] Not available 2021 08:39:41 Mother Cerebrovascu lar accident [email or web address] Not available 08:39:49 Mother Allergy pt. added direct ly (09/22) [email or web address] Not available 09/22/2022 12:40:30 Mother Hypercholest erolemia pt. added direct ly (09/22) [email or web address]-13 Not available 09/22/2022 12:41:40 Mother Mental health problem pt. added direct ly (09/22) [email or web address]-13 Not available 09/22/2022 12:41:57 Father Diabetes mellitus [email or web address] Not available 2024 13:07:21 Father Disorder of endocrine system pt. added direct ly (09/22) [email or web address]-13 Not available 09/22/2022 12:40:40 Father Myocardial infarction pt. added direct ly (09/22) [email or web address]-13 Not available 09/22/2022 12:41:22 Father Hypercholest erolemia pt. added direct ly (09/22) [email or web address]-13 Not available 09/22/2022 12:41:40 Father Mental health problem pt. added direct ly (09/22) [email or web address]-13 Not available 09/22/2022 12:41:57 Maternal Grandfather Myocardial infarction pt. added direct ly (09/22) [email or web address]-13 Not available 09/22/2022 12:41:22 Maternal Grandfather Hypercholest erolemia pt. added direct ly (09/22) [email or web address]-13 Not available 09/22/2022 12:41:40 Maternal Grandfather Cerebrovascu lar accident pt. added direct ly (09/22) [email or web address]-13 Not available 09/22/2022 12:42:22 Maternal Grandmother Hypercholest erolemia pt. added direct ly (09/22) [email or web address]-13 Not available 09/22/2022 12:41:40 Maternal Grandmother Cerebrovascu lar accident pt. added direct ly (09/22) [email or web address]-13 Not available 09/22/2022 12:42:22 Paternal Grandmother Hypercholest erolemia pt. added direct ly (09/22) API-13 Not available 09/22/2022 12:41:40 Paternal Grandfather Hypercholest erolemia pt. added direct ly (09/22) API-13 Not available 09/22/2022 12:41:40 Son Mental health problem pt. added direct ly (09/22) [email or web address]-13 Not available 09/22/2022 12:41:57 Paternal Uncle Cerebrovascu lar accident pt. added direct ly (09/22) [email or web address]-13 Not available 09/22/2022 12:42:22 Paternal Aunt Cerebrovascu lar accident pt. added direct ly (09/22) [email or web address]-13 Not available 09/22/2022 12:42:22 Maternal Uncle Cerebrovascu lar accident pt. added direct ly (09/22) [email or web address]-13 Not available 09/22/2022 12:42:22 Maternal Aunt Cerebrovascu lar accident pt. added direct ly (09/22) [email or web address]-13 Not available 09/22/2022 12:42:22 Medical History Condition Response Diabetes Y Autoimmune disease Y Anxiety/Depression Y Obesity Y Vision or Eye Problems Y Arthritis Y Back Problems Y COPD Y GI Problems Y High Cholesterol Y Liver Disease Y Psychiatric/Mental Health Condition Y Heart Disease Y Rheumatoid Arthritis Y Obstructive Sleep Apnea Y Hypertension Y Neurological Problems Y Gynecological History Statement/Question Response Abnormal Pap Y 03/28/2022 Date of Last Colonoscopy 06/08/2020 Date of LMP 08/03/2019 Sexually Active? Y Menses Monthly N Date of Last Pap Smear 03/17/2020 Current Control Method None Obstetrics History GPAL:G 0 P 0 0 0 0 Past Encounters Encounter ID Performer Location Encounter Start Date Encounter Closed Date Diagnosis/Indication Diagnosis SNOMED-CT Code Diagnosis ICD10 Code Diagnosis IMO Codes Diagnosis Note [id number] Kevin rGay M.D [facility] [address],[facility] [address] [place] [id number] 09/11/2022 08:00:02 09/11/2022 09:03:08 Dizziness 831144869 R42 Aphasia 67059530 R47.01 Amnesia 52084868 R41.3 Polyneuropathy 16858706 G62.9 [id number] Kevin Gray M.D [facility] [address],[place] [address] [place] [id number] 09/25/2022 13:01:47 09/25/2022 13:40:09 Lumbosacral radiculitis 54535430 M54.17 Numbness 10936666 R20.0 Generalize d anxiety disorder 61893829 F41.1 [id number] Mary Lim NP [facility] [address] [facility] [address] [place] [id number] 10/24/2022 09:31:18 10/24/2022 11:04:19 Nausea and vomiting 64402363 R11.2 Two month history of daily episodes of nausea and vomiting, 4-5 times per day. Failed treatment with Zofran and Phenergan. History of uncontroll ed diabetes scheduled to follow-up with Endocrinol pilar next week. Recommend EGD to evaluate for PUD, gastritis, bowel obstructio n. Recommend gastric emptying study to rule out gastropare sis. Pt is scheduled for EGD 11/21 @ 7:30 AM Gastro-eso phageal reflux disease with esophagitis 376240370 K21.00 Occasional uncontroll ed symptoms with use of omeprazole . Reports little caffeine intake. Plan for EGD as above to further evaluate. Esophageal dysphagia 408 76192 R13.19 2 month history of dysphagia to solid foods occasional liquids. Recommend EGD to evaluate for esophageal stricture, ring, other. Cirrhosis of liver 007 K74.60 Cirrhosis reported by patient, possible alpha-1 or NEGRETE etiology. Will obtain records to review from [facility]. No signs of decompensa tion at this time. Recommend labs to formulate meld. Recommend liver ultrasound and AFP to screen for HCC, continued every 6 months. Plan for EGD to evaluate for esophageal varices, PHG, GAVE. Irritable bowel syndrome characterized by constipation 724555371 K58.1 Uncontroll ed with use of stool softeners. Previously failed treatment with MiraLax, fiber, and OTC laxatives. Recommend Linzess 290 mcg p.o. daily for treatment. Samples for 12 days provided to patient clinic today. [id number] Kevin Gray M.D [facility] [address],[place] [id number] 11/26/2022 13:33:55 11/26/2022 14:21:41 Amnesia 60817653 R41.3 Aphasia 18382518 R47.01 Dizziness 352452397 R42 [id number] Mary Lim NP [facility] [address] [facility],[place] [address] [place] [id number] 01/02/2023 09:40:08 01/09/2023 16:57:17 Cirrhosis of liver 59857723 K74.60 No signs of decompensa tion. Possibly secondary to alpha-1 or NEGRETE, as previously reported by patient. Previously requested records from [facility] however unable to be obtained. No signs of decompensa tion at this time. EGD negative for esophageal varices or GAVE 11/21/22. liver ultrasound 10/31/2022 noted cirrhosis. . Plan for comprehens nj liver workup to rule out underlying viral hepatitis, autoimmune or metabolic liver disease. Gastro-eso phageal reflux disease with esophagitis 174132936 K21.00 Reflux esophagiti s confirmed on pathology 11/21/2022 . Symptoms controlled with use of omeprazole . Recommend reflux precaution s as well as avoidance of food triggers. Gastropare sis syndrome 051292986 K31.84 Delayed gastric emptying noted on gastric emptying study 11/02/2022 . EGD 11/21/2022 with retained food noted in the stomach. Patient was prescribed Reglan following procedure however continues to experience frequent uncontroll ed symptoms. I have discussed dietary modificati ons as well as strict glycemic control. Gastropare sis diet was provided to patient clinic today. Will refer to dietitian for further meal planning. Recommend referral to [facility] for additional treatment options. [id number] Kevin Gray M.D [facility] [address],[place] [id number] 07/01/2023 10:08:37 07/01/2023 10:59:12 Abnormal gait 86765220 R26.9 Psychologi c conversion disorder 84621698 F44.9 Amnesia 65211488 R41.3 Generalize d anxiety disorder 09987801 F41.1 [id number] Mary Lim NP [facility] [address] [place] [id number] 07/17/2023 14:49:54 07/19/2023 09:57:22 Cirrhosis of liver 14010115 K74.60 No signs of decompensa tion. Possibly secondary to alpha-1 or NEGRETE, as previously reported by patient. Plan for labs today to formulate MELD. Due for repeat liver us and AFP to screen for HCC, continue q 6 months. EGD 11/2022 negative for esophageal varices or GAVE. Liver ultrasound 10/31/2022 noted cirrhosis. Gastro-eso phageal reflux disease with esophagitis 815677849 K21.00 Reflux esophagiti s confirmed on pathology 11/21/2022 . Symptoms controlled with use of omeprazole . Recommend reflux precaution s as well as avoidance of food triggers. Gastropare sis syndrome 051345505 K31.84 Delayed gastric emptying noted on gastric emptying study 11/02/2022 . EGD 11/21/2022 with retained food noted in the stomach. Continues Reglan 5 mg prn and Zofran 4 mg. She has made dietary changes and met with [employer] Representative with zoie ascencio. She was previously referred to [facility] clinic however has not been scheduled for rubén t. Will send referral. Irritable bowel syndrome characterized by constipation 617026509 K58.1 Controlled with Linzess 290 mcg po daily. Will send refills today. [id number] Mary Lim NP [facility] [address] [place] [id number] 03/11/2024 11:26:28 03/11/2024 12:10:36 Cirrhosis of liver 89139297 K74.60 No signs of decompensa tion. Plan for labs today to formulate MELD. Due for repeat liver us and AFP to screen for HCC, continue q 6 months. EGD 11/2022 negative for esophageal varices or GAVE. Liver ultrasound 07/2023 noted cirrhosis. Gastro-eso phageal reflux disease with esophagitis 781015159 K21.00 Reflux esophagiti s confirmed on pathology 11/21/2022 . 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 Recommend Pantoprazo le 40 mg daily as well as Famotidine 40 mg po HS for treatment. Gastropare sis syndrome 087493102 K31.84 Delayed gastric emptying noted on gastric emptying study 11/02/2022 . EGD 11/21/2022 with retained food noted in the stomach. Continues Reglan 5 mg prn and Zofran 4 mg. She has made dietary changes and met with [employer] Representative. . She was previously referred to [facility] clinic however has not been scheduled for [facility] t. Will resend referral. Irritable bowel syndrome characterized by constipation 774306482 K58.1 Continues to alternate episodes of constipati on and diarrhea with use of Linzess 290 mcg every other day. Recommend Motegrity 2 mg tablet daily for treatment at this time. Previously failed treatment with MiraLax, fiber, stool softeners. History of polyp of colon 006247539 Z86.010 Last colonoscop y 2020 with polyps resected as reported by patient with Dr. Cervantes. Recommend screening colonoscop y to rule out colorectal cancer, polyps, other. She will need clearance from Cardiology , Dr. Ibanez, prior to procedure. [id number] Mary Lim NP [facility] [address] [place] [address] DR PERRIN R, [place] [id number] 06/04/2024 14:04:17 06/04/2024 15:41:00 Cirrhosis of liver 83881177 K74.60 No signs of decompensa tion. MELD 9. Liver us with cirrhosis noted 03/2024. EGD 11/2022 negative for esophageal varices or GAVE. Gastro-eso phageal reflux disease with esophagitis 874004905 K21.00 Recently prescribed Omeprazole 40 mg BID for treatment. Gastropare sis syndrome 851331746 K31.84 Delayed gastric emptying noted on gastric emptying study 11/02/2022 . EGD 11/21/2022 with retained food noted in the stomach. Continues Reglan 5 mg prn and Zofran 4 mg. She has made dietary changes and met with [employer] Representative. Irritable bowel syndrome characterized by constipation 021963970 K58.1 improved with use of Motegrity. Recommend continued use as prescribed . Previously failed treatment with MiraLax, fiber, Linzess and stool softeners. History of polyp of colon 668608210 Z86.010 Last colonoscop y 2020 with polyps resected as reported by patient with Dr. Cervantes. Hematemesis 0090554 K92. 0 episodes of hematemesi s off and on for the past 6 days. Describes bright red blood quarter-si zed amount. Plan for CBC today. I have recommende d that she be evaluated in the ED with continued symptoms. Plan for EGD next available appointmen t to further evaluate. Continue omeprazole 40 mg b.i.d. as prescribed . Cardiac clearance will be obtained prior to procedure, Dr. Ibanez. Hematochezia 066850224 K 92.1 Episodes of BRBPR for the past week. Plan for CBC today. Recommend colonoscop y to further evaluate. She will need clearance from Cardiology , Dr. Ibanez, prior to procedure. [id number] Mary Lim NP [facility] [address] [place] [address] DR SHIPMAN, [place] [id number] 07/09/2024 12:48:47 07/10/2024 12:22:20 Cirrhosis of liver 67415583 K74.60 No signs of decompensa tion. MELD 9. Liver us with cirrhosis noted 03/2024. EGD 06/12/2024 with mild portal hypertensi ve gastropath y noted. Due for repeat liver ultrasound and AFP to screen for HCC 09/2024. Will obtain labs at that time to formulate MELD. Gastro-eso phageal reflux disease with esophagitis 006734491 K21.00 Continues Omeprazole 40 mg BID for treatment. Gastropare sis syndrome 569901076 K31.84 Delayed gastric emptying noted on gastric emptying study 11/02/2022 . Continues Reglan 5 mg prn and Zofran 4 mg. She has made dietary changes and met with [employer] Representative. Irritable bowel syndrome characterized by constipation 644510836 K58.1 Uncontroll ed with use of Linzess 290 mcg. Previously improved with use of Motegrity however denied by insurance. Previously failed treatment with MiraLax, fiber, and stool softeners. Recommend trial of Ibsrela 50 mg p.o. b.i.d., samples for 9 days provided to patient in clinic today. Will send Rx based on response to sample medication . History of polyp of colon 838481625 Z86.010 Hyperplast ic polyps resected on colonoscop y 06/12/2024 . Plan to repeat colonoscop y 5 years 05/2029 for surveillan ce. [id number] Mary Lim NP [facility] [address] [place] [address] 08/26/2024 13:09:26 08/26/2024 14:01:06 Cirrhosis of liver 32755159 K74.60 No signs of decompensa tion. Liver us with cirrhosis noted 03/2024. EGD 06/12/2024 with mild portal hypertensi ve gastropath y noted. recommend labs today to formulate MELD. Recommend liver ultrasound as well as AFP to screen for HCC. Gastro-eso phageal reflux disease with esophagitis 311087469 K21.00 Continues Omeprazole 40 mg BID for treatment. I have recommende d use of OTC Pepcid complete b.i.d. p.r.n. for episodes of belching and dyspepsia. Gastropare sis syndrome 812520230 K31.84 Delayed gastric emptying noted on gastric emptying study 11/02/2022 . Continues Reglan 5 mg prn and Zofran 4 mg. She has made dietary changes and met with [employer] Representative. Irritable bowel syndrome characterized by constipation 213493263 K58.1 Continues Linzess 290 mcg as well as MiraLax for treatment. Previously failed treatment with stool softeners, fiber, Ibsrela samples. Will send refills today. Symptoms previously improved with Motegrity however denied by insurance. [id number] Mary Lim NP [facility] [address] [place] [address] [place] [id number] 02/18/2025 10:33:35 02/18/2025 11:48:45 Cirrhosis of liver 64608584 K74.60 recently decompensa rodrigo requiring paracentes is. Liver us with cirrhosis noted 08/2024. EGD 06/12/2024 with mild portal hypertensi ve gastropath y noted. Recommend follow up labs in 1-2 weeks to formulate MELD. Will obtain recent CT from [facility] ED to review. Gastro-eso phageal reflux disease with esophagitis 801205494 K21.00 Continues Omeprazole 40 mg BID with well controlled symptoms at this time. Gastropare sis syndrome 532430726 K31.84 Delayed gastric emptying noted on gastric emptying study 11/02/2022 . Doing well at this time with only occasional symptoms. Continues Reglan 5 mg prn and Zofran 4 mg prn. She has made dietary changes and met with [employer] Representative. Irritable bowel syndrome characterized by constipation 396008054 K58.1 Continues Linzess 290 mcg with controlled symptoms. Previously failed treatment with stool softeners, fiber, Ibsrela samples. Will send refills today. Symptoms previously improved with Motegrity however denied by insurance. Ascites 662121099 R18.8 [id number] recent ascites requiring paracentes is completed 02/17/2025 . Recommend strict 2,000 mg low sodium diet. Recommend starting Diuretic therapy with spironolac tone 100 mg tablet daily as well as furosemide 40 mg 1 tablet daily. Plan for follow-up labs 1-2 weeks to assess kidney function. Plan for repeat paracentes is with fluid analysis and albumin replacemen t. [id number] Mary Lim NP [address] DR SHIPMAN, [place] [id number] 05/10/2025 13:01:32 05/10/2025 14:01:44 Cirrhosis of liver 65771462 K74.[address] 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 Decompensa rodrigo with refractory ascites requiring weekly paracentes is. MELD 12 from 02/2025. Liver us with cirrhosis noted 08/2024. EGD 06/12/2024 with mild portal hypertensi ve gastropath y noted. Recommend labs to formulate MELD. Given her refractory ascites will plan to maximize diuretic therapy and monitor labs closely. Will refer to [facility] for further evaluation . Check ammonia today given her recent report of falls. Gastro-eso phageal reflux disease with esophagitis 091583059 K21.00 Continues Omeprazole 40 mg BID and Famotidine 40 mg for treatment. Gastropare sis syndrome 117427822 K31.84 Delayed gastric emptying noted on gastric emptying study 11/02/2022 . Occasional symptoms at this time. Continues Reglan 5 mg prn and Zofran 4 mg prn. She has made dietary changes and previously met with [employer] Representative. Irritable bowel syndrome characterized by constipation 850529710 K58.1 Continues Linzess 290 mcg [place] Lactulose prn for treatment. Previously failed treatment with stool softeners, fiber, Ibsrela samples. Will send refills today. Symptoms previously improved with Motegrity however denied by insurance. Ascites 311699031 R18.8 972301 Refractory ascites requiring weekly paracentes is despite use of diuretics and low sodium diet. Plan to maximize diuretic therapy and monitor labs closely. Will refer to [facility] to further evaluate. Health Concerns Section Related Observation LastModified by Organization Detai ls LastModified Time None Recorded Concern Status LastModified by Organization Details LastModified Time None Recorded Advance Directives Directive N: Payers Insurance Date Sequence Insurance Name Policy Number Policy [place] Covered Member ID [place] Member ID Guarantor Name 05/14/2025 1 [employer] (MEDICAID HMO) Luz Yevgeniy [id number] Luz Long Notes Date Note Type Note Provider Name and Address Organization Details Recorded Time 06/04/2024 text/html Patient returns to clinic today With complaints of hematemesis and hematochezia that began 6 days ago. Describes several episodes of hematemesis, bright red blood quarter sized amount several times per day. Some left sided abdominal pain. Also experiencing hematochezia, described as small amount. She followed up with PCP earlier this week. She does have a history of cirrhosis as well as gastroparesis. She continues Reglan p.r.n. as well as Zofran. Omerpazole recently increased to BID dosing. Constipation has improved with use of Motegrity. Cirrhosis noted on liver ultrasound 03/16/2024. Last colonoscopy [place] [address] Cervantes with polyps resected. She has followed up with Cardiology, Dr. Ibanez. Mary Lim, MAGGIE [address] [place] [address], [address], [place], [address], [facility] [place] [facility] [place] 06/04/2024 16:12:21 07/09/2024 text/html patient returns to clinic today for follow-up post upper and lower endoscopy 06/12/2024. EGD noted mild portal hypertensive gastropathy. Pathology confirmed gastric hyperplastic polyp as well as chronic reflux esophagitis. Colonoscopy with several polyps resected throughout the colon consistent with hyperplastic polyps. Plan to repeat colonoscopy 5 years for surveillance due to history colon polyps. She continues Linzess 290 mcg for treatment of constipation. She continues to report several days of constipation with episodes of diarrhea to follow. On the days that she is constipated she does experience continued episodes of nausea and vomiting. Symptoms previously improved with Motegrity samples however denied by insurance. She continues Reglan p.r.n. as well as Zofran for history gastroparesis. She continues Omeprazole 40 mg po BID. Cirrhosis noted on liver ultrasound 03/16/2024. Mary Lim NP [address] [facility], [address], [place], [address], [facility] & [place] 07/10/2024 11:47:33 08/26/2024 text/html patient returns to clinic today for follow-up. She continues Linzess 290 mcg as well as MiraLax for treatment of constipation. Requesting refills today. She continues omeprazole 40 mg BID for treatment of GERD. She does report some recent increased belching and dyspepsia. She continues Reglan 5 mg prn for history of gastroparesis. Cirrhosis noted on liver ultrasound 03/16/2024. EGD 06/12/24 noted mild portal hypertensive gastropathy. Pathology confirmed gastric hyperplastic polyp as well as chronic reflux esophagitis. Colonoscopy 06/12/24 with several polyps resected throughout the colon consistent with hyperplastic polyps. Plan to repeat colonoscopy 5 years for surveillance due to history colon polyps. Mary Lim NP [address] [facility], [address], [place], [address], [facility] & [place] 08/26/2024 15:19:09 02/18/2025 text/html Patient returns to clinic today for follow-up on cirrhosis. She had been experiencing increased abdominal bloating and pressure over the past couple of weeks. She was evaluated [facility] ED 02/12/2025 at which time was diagnosed with ascites. She was evaluated [facility] ED 02/17/2025 and under went large volume paracentesis. Abdominal bloating and pressure has improved. She also reports some lower extremity edema. She was recently prescribed Aldactone 25 mg daily however has not started taking this yet. Does not eat a lot of sodium. She continues Linzess 290 mcg with controlled constipation. She continues omeprazole 40 mg BID for treatment of GERD. Diabetes has been controlled. Continues Reglan 5 mg prn and zofran prn for occasional nausea due to gastroparesis however denies recent symptoms. Cirrhosis noted on liver ultrasound 09/02/24. EGD 06/12/24 noted mild portal hypertensive gastropathy. Pathology confirmed gastric hyperplastic polyp as well as chronic reflux esophagitis.Colonos copy 06/12/24 with several polyps resected throughout the colon consistent with hyperplastic polyps. Plan to repeat colonoscopy 05/2029 for surveillance due to history colon polyps. Mary Lim NP [address] [facility], [address], [place], [address], [facility] & [place] 02/18/2025 12:40:08 05/10/2025 text/html Patient returns to clinic today for follow-up on cirrhosis. She continues diuretics and following a low sodium diet however continues to require weekly paracentesis d/t refractory ascites. She also continues to experience lower extremity edema. She does report recent falls and plans to follow up with Neurology. She is taking Linzess 290 mcg most days for constipation and is prescribed Lactulose however denies taking this daily. She continues omeprazole 40 mg BID as well as Famotidine 40 mg for treatment of GERD. Continues Reglan 5 mg prn and zofran prn for occasional nausea due to gastroparesis. Cirrhosis noted on liver ultrasound 09/02/24. EGD 06/12/24 noted mild portal hypertensive gastropathy. Pathology confirmed gastric hyperplastic polyp as well as chronic reflux esophagitis.Colonos copy 06/12/24 with several polyps resected throughout the colon consistent with hyperplastic polyps. Plan to repeat colonoscopy 05/2029 for surveillance due to history colon polyps. Mary Lim NP [address] [facility], [address], [place], [address], [facility] [place] 05/10/2025 22:52:26 OBGyn Episode No OBEpisode recorded.
--- OUTSIDE RECORDS SUMMARY | 2025-07-09 15:05 | XMS_ITS | Encounter Summary ---
Author Organization Healthcare Address [address] [place] [address] Care Team Providers Care Family Practice Physician Name Role Phone Jessica Man PUMP AND STILL OPERATOR Primary Care Provider Mary Lim PUMP AND STILL OPERATOR Unavailable Reason for Visit * Reason Onset Date Comments Prior-authorization/insurance Verification 06/09 Encounter Details Date Type Department Care Team (Late st Contact Info) Description 06/09/2025 Telephone [facility] Endocrinology [address] [place] [address] Silvia Adrian, PUMP AND STILL OPERATOR 5 [facility] [address] [place] [address] Prior-authorization/in surance Verification Social History [...] encounter Miscellaneous Notes * Addendum Note - Liliane Martin CDE, RD - 06/10/2025 10:50 AM EDTAddended by: LILIANE MARTIN on: 06/10/2025 10:50 AM Modules accepted: Orders * Telephone Encounter - Liliane Martin CDE, RD - 06/10/2025 10:42 AM EDT Attempted to reach patient again to discuss formulary alternative FSL3+ sensor. No answer left v/m informing patient of this and reviewed w/ her that it is also approved on back of the arm and wear is for 15 days instead of 10. If has any questions advised to call us back. Also sent a Grouper message regarding this. * Telephone Encounter - [...] Description 07/22/2025 3:40 PM EDT Office Visit [facility] Endocrinology [address] [place] [address] Silvia Adrian, PUMP AND STILL OPERATOR [address] [place] [address] 08/04/2025 8:30 AM EDT Clinical Support [facility] [address] [place] [address] 08/04/2025 9:[address] [facility] Radiology [address] [place] [address] 08/04/2025 9:[address] [facility] Radiology [address], 1st [place] [address] 08/04/2025 10:00 AM EDT Clinical Support [facility] [address] [email or web address] [address] [place] [address] Lurdes Mahoney, RD CH - CLINICAL NUTRITION [address] [place] [address] 08/04/2025 11:00 AM EDT Office Visit [facility] [address] [place] [address] Lily Dickinson MD [address] [facility] [address] [place] [address] 08/04/2025 11:[address] [facility] [address] [place] [address] [place] [address] 08/04/2025 2:30 PM EDT Appointment [facility] [address] [place] [address] 08/04/2025 3:00 PM EDT Appointment [facility] Pulmonary Function Testing [address] [place] [address] 11/02/2025 11:00 AM EST Office [facility] [address], 2nd [place] [address] Raman Chang PA [address] [place] [address] documented as of this encounter Visit Diagnoses Diagnosis Type 2 diabetes mellitus with hyperglycemia, without long-term current use of insulin- Primary documented in this encounter Additional Health Concerns Assessment Noted Time PHQ-9 Depression Total Score: 7 12/22/19 12:39 PM EDT A fall risk assessment has been complete d for the patient 03/13/2023 9:53 AM EDT A Body Mass Index follow-up plan has been documented for the patient 04/06/2025 2:27 PM EDT documented as of this encounter Care Teams Family Practice Physician Relationship Specialty Start Date End Date Jessica Man APRN [address] [place] [address] PCP - General 02/24/21 Mary Lim APRN [address] [place] [address] Referring Physician Gastroenterology 05/11/25 documented as of this encounter
--- OUTSIDE RECORDS SUMMARY | 2025-07-09 15:05 | XMS_ITS | Encounter Summary ---
Author Organization [facility] Address [address] [place] [address] Care Team Providers Care Dining Room Attendant Cafeteria Name Role Phone Jessica Man WINDOW INSTALLER Primary Care Provider Mary Lim WINDOW INSTALLER Unavailable [phone] Encounter Details Date Type Department Care Team (Late st Contact Info) Description 06/23/2025 Telephone [facility] [address] [facility] [address] [place] [address] Edda Méndez [place] [phone] Social History Tobacco Use Types Packs/Day Years [...] Description 07/22/2025 3:40 PM EDT Office Visit [facility] Endocrinology [address] [place] [address] Silvia Lewis, WINDOW INSTALLER [address] [facility] [address] [place] [address] 08/04/2025 8:30 AM EDT Clinical Support [facility] [address] [facility] [address] [place] [address] 08/04/2025 9:00 AM EDT Appointment [facility] Radiology [address] [place] [address] 08/04/2025 9:45 AM EDT Appointment [facility] Radiology [address], 1st [place] [address] 08/04/2025 10:00 AM EDT Clinical Support [facility] [address] [place] [address] CH - CLINICAL NUTRITION [address] [place] [address] 08/04/2025 11:00 AM EDT Office Visit [facility] [address] [place] [address] Lily Dickinson MD [address] [facility] [address] [place] [address] 08/04/2025 11:30 AM EDT Social Work [facility] [address] [place] [address] Elaine Banerjee [place], [place] [phone] 08/04/2025 2:30 PM EDT Appointment [facility] [address] [place] [address] 08/04/2025 3:00 PM EDT Appointment [facility] Pulmonary Function Testing [address] [place] [address] 11/02/2025 11:00 AM EST Office Visit [facility] Medicine Specialties [address], 2nd [place] [address] Raman Chang PA [address] [facility] [address] [place] [address] documented as of this encounter [...] documented as of this encounter Care Teams Dining Room Attendant Cafeteria Relationship Specialty Start Date End Date Jessica Man APRN [address] [place] [address] PCP - General 02/24/21 Mary Lim APRN [address] [place] [address] Referring Physician Gastroenterology 05/11/25 documented as of this encounter
--- OUTSIDE RECORDS SUMMARY | 2025-07-09 15:05 | XMS_ITS | Encounter Summary ---
Author Organization Healthcare Address [address] [place] [address] Care Team Providers Care Sugar Reprocess Operator Head Name Role Phone Jessica Man FOLLOW UP CLERK Primary Care Provider Mary Lim FOLLOW UP CLERK Unavailable [phone] Reason for Visit * Reason Onset Date Comments Prior-authorization/insurance Verification 06/02 Encounter Details Date Type Department Care Team (Late st Contact Info) Description 06/02/2025 Telephone [facility] Endocrinology [address] [place] [address] Silvia Adrian, FOLLOW UP CLERK 2[address] [facility] [address] [place] [address] Prior-authorization/in surance Verification Social History [...] Description 07/22/2025 3:40 PM EDT Office Visit [facility] Endocrinology [address] [place] [address] Silvia Adrian, FOLLOW UP CLERK [address] [facility] [address] [place] [address] 08/04/2025 8:30 AM EDT Clinical Support [facility] [address] [facility] [address] [place] [address] 08/04/2025 9:00 AM EDT Appointment [facility] Radiology [address] [place] [address] 08/04/2025 9:45 AM EDT Appointment [facility] Radiology [address], 1st [place] [address] 08/04/2025 10:00 AM EDT Clinical Support [facility] [address] [place] [address] CH - CLINICAL NUTRITION [address] [place] [address] 08/04/2025 11:00 AM EDT Office Visit [facility] [address] [facility] [address] [place] [address] Lily Dickinson MD [address] [facility] [address] [place] [address] 08/04/2025 11:30 AM EDT Social Work [facility] [address] [address] Elaine Banerjee [place], [place] [phone] 08/04/2025 2:30 PM EDT Appointment [facility] [address] [place] [address] 08/04/2025 3:00 PM EDT Appointment [facility] Pulmonary Function Testing [address] [place] [address] 11/02/2025 11:00 AM EST Office Visit [facility] Medicine Specialties [address], 2nd [place] [address] Raman Chang PA [address] [address] documented as of this encounter Visit [...] documented as of this encounter Care Teams Sugar Reprocess Operator Head Relationship Specialty Start Date End Date Jessica Man, NGUYỄN [address] [place] [address] PCP - General 02/24/21 Mary Lim APRN [address] [place] [address] Referring Physician Gastroenterology 05/11/25 documented as of this encounter
--- OUTSIDE RECORDS SUMMARY | 2025-07-09 15:05 | XMS_ITS | Encounter Summary ---
Author Organization Healthcare Address [address] [place] [place] [address] Care Team Providers Care Brass Reclaimer Name Role Phone Man, Jessica Khoury PEOPLE GREETER Primary Care Provider Mary Lim PEOPLE GREETER Unavailable [phone] Encounter Details Date Type Department Care Team [...] Visit [facility] Endocrinology [address] [place] [address] Silvia Lewis, PEOPLE GREETER [address] [place] [address] 08/04/2025 8:30 AM EDT Clinical Support [facility] Transplant [facility] [address] [place] [address] 08/04/2025 9:00 AM EDT Appointment [facility] Radiology [address] [place] [address] 08/04/2025 9:45 AM EDT Appointment [facility] Radiology [address], 1[address] [place] [address] 08/04/2025 10:00 AM EDT Clinical Support [facility] Transplant [place] [address] [place] [address] CH - CLINICAL NUTRITION [address] [place] [address] 08/04/2025 11:00 AM EDT Office Visit [facility] [place] [address] [place] [address] Lily Dickinson MD [address] [place] [address] 08/04/2025 11:30 AM EDT Social Work [facility] [place] [address] [facility] [address] [place] [address] [place] [address] 08/04/2025 2:30 PM EDT Appointment [facility] [address] [place] [address] 08/04/2025 3:00 PM EDT Appointment [facility] Pulmonary Function Testing [address] [place] [address] 11/02/2025 11:00 AM EST Office Visit [facility] Medicine Specialties [address], 2nd [place] [address] Raman Chang, PA [address] [facility] [address] [place] [address] documented as of this encounter Visit Diagnoses [...] documented as of this encounter Care Teams Brass Reclaimer Relationship Specialty Start Date End Date Jessica Man APRN [address] [place] [address] PCP - General 02/24/21 Mary Lim APRN [address] [place] [address] Referring Physician Gastroenterology 05/11/25 documented as of this encounter
--- OUTSIDE RECORDS SUMMARY | 2025-07-09 15:05 | XMS_ITS | Encounter Summary ---
Author Organization [facility] Address [address] [place] [address] Care Team Providers Care Retort Feeder Ground Bone Name Role Phone Jessica Man FELT PULLER Primary Care Provider [phone] Mary Lim FELT PULLER Unavailable [phone] Encounter Details Date Type Department Care Team (Late st Contact Info) Description 06/01/2025 Telephone [facility] [address] [facility] [address] [place] [address] Edda Méndez [place] [phone] Social History Tobacco Use Types Packs/Day Years [...] Description 07/22/2025 3:40 PM EDT Office Visit [facility] Endocrinology [address] [place] [address] Silvia Lewis, FELT PULLER [address] [place] [address] 08/04/2025 8:30 AM EDT Clinical Support [facility] Transplant [facility] [address] [facility] [address] [place] [address] 08/04/2025 9:00 AM EDT Appointment [facility] Radiology [address] [place] [address] 08/04/2025 9:45 AM EDT Appointment [facility] Radiology [address], 1st [place] [address] 08/04/2025 10:00 AM EDT Clinical Support [facility] Transplant [facility] [address] [facility] [address] [place] [address] CH - CLINICAL NUTRITION [address] [place] [address] 08/04/2025 11:00 AM EDT Office Visit [facility] [address] [place] [address] Lily Dickinson MD [address] [facility] [address] [place] [address] 08/04/2025 11:30 AM EDT Social Work [facility] [address] [place] [address] Elaine Banerjee [place], [place] [address] 08/04/2025 2:30 PM EDT Appointment [facility] Radiology [address] [place] [address] 08/04/2025 3:00 PM EDT Appointment [facility] Pulmonary Function Testing [address] [place] [address] 11/02/2025 11:00 AM EST Office Visit [facility] Medicine Specialties [address], 2nd [place] [address] Raman Chang PA [address] [facility] [address] [place] [address] documented as of this encounter [...] documented as of this encounter Care Teams Retort Feeder Ground Bone Relationship Specialty Start Date End Date Jessica Man APRN [address] [place] [address] PCP - General 02/24/21 Mary Lim APRN [address] [place] [address] Referring Physician Gastroenterology 05/11/25 documented as of this encounter
--- OUTSIDE RECORDS SUMMARY | 2025-07-09 15:05 | XMS_ITS | Encounter Summary ---
Author Organization Healthcare Address [address] [place] [address] Care Team Providers Care Keymodule Assembly Supervisor Name Role Phone Jessica Man GROUND OPERATIONS SUPERVISOR Primary Care Provider Mary Lim GROUND OPERATIONS SUPERVISOR Unavailable [phone] Encounter Details Date Type Department Care Team (Late Contact Info) Description 05/25/2025 Orders Only External Location [address] [place] [address] Provider, External Social History Tobacco Use Types [...] PM EDT Office Visit [facility] Endocrinology [address] [place] [address] Silvia Lewis S, GROUND OPERATIONS SUPERVISOR [address] [place] [address] 08/04/2025 8:30 AM EDT Clinical Support [facility] [place] [address] [place] [address] 08/04/2025 9:[address] [facility]iology [address] [place] [address] 08/04/2025 9:[address] [facility] [address] 1[address] [place] [address] 08/04/2025 10:00 AM EDT Clinical Support [facility] [place] [address] [facility] [address] [place] [address] CH - CLINICAL NUTRITION [address] [place] [address] 08/04/2025 11:00 AM EDT Office Visit [facility] [place] [address] [place] [address] Lily Dickinson MD [address] [facility] [address] [place] [address] 08/04/2025 11:30 [address] EDT [address] [facility] [place] [address] [facility] [address] [place] [address] [place] [address] 08/04/2025 2:30 PM EDT Appointment [facility] [address] [place] [address] 08/04/2025 3:00 PM EDT Appointment [facility] Pulmonary Function Testing [address] [place] [address] 11/02/2025 11:00 AM EST Office Visit [facility] [address] [place] [address] Raman Chang PA [address] [place] [address] documented as of this encounter [...] documented as of this encounter Care Teams Keymodule Assembly Supervisor Relationship Specialty Start Date End Date Jessica Man APRN [address] [place] [address] PCP - General 02/24/21 Mary Lim APRN [address] [place] [address] Referring Physician Gastroenterology 05/11/25 documented as of this encounter
--- OUTSIDE RECORDS SUMMARY | 2025-07-09 15:05 | XMS_ITS | Encounter Summary ---
Author Organization [facility] Address [address] [place] [address] Care Team Providers Care Disability Coordinator Name Role Phone Jessica Man CHILD CARE DEVELOPMENT SPECIALIST Primary Care Provider Mary Lim CHILD CARE DEVELOPMENT SPECIALIST Unavailable [phone] Reason for Visit * Reason Comments Appointment Confirmation and rem inders Encounter Details Date Type Department Care Team (Late st Contact Info) Description 06/23/2025 Telephone [facility] [address] [place] [address] Edda Méndez [place] [phone] Appointment (Confirmation and reminders) Social History Tobacco [...] needed. Provided alternate contact for Edward Douglas ([phone]). documented in this encounter Plan of Treatment Upcoming Encounters Date Type Department Care Team (Late st Contact Info) Description 07/22/2025 3:40 PM EDT Office Visit [facility] Endocrinology [address] [place] [address] Silvia Lewis, CHILD CARE DEVELOPMENT SPECIALIST [address] [place] [address] 08/04/2025 8:30 AM EDT Clinical Support [facility] [address] [facility] [address] [place] [address] 08/04/2025 9:00 AM EDT Appointment [facility] Radiology [address] [place] [address] 08/04/2025 9:45 AM EDT Appointment [facility] Radiology [address], 1st [place] [address] 08/04/2025 10:00 AM EDT Clinical Support [facility] [address] [place] [address] CH - CLINICAL NUTRITION [address] [place] [address] 08/04/2025 11:00 AM EDT Office Visit [facility] [place] [address] [place] [address] Lily Dickinson MD [address] [place] [address] 08/04/2025 11:30 AM EDT Social Work [facility] [address] [place] [address] LavonneI[address]nedam[address] [place], [place] [phone] 08/04/2025 2:30 PM EDT Appointment [facility] [address] [place] [address] 08/04/2025 3:00 PM EDT Appointment [facility] Pulmonary Function Testing [address] [place] [address] 11/02/2025 11:00 AM EST Office Visit [facility] Medicine Specialties [address], 2[address] [place] [address] Raman Chang, PA [address] [facility] [address] [place] [address] documented as of this encounter [...] documented as of this encounter Care Teams Disability Coordinator Relationship Specialty Start Date End Date Jessica Man APRN [address] [place] [address] PCP - General 02/24/21 Mary Lim APRN [address] [place] [address] Referring Physician Gastroenterology 05/11/25 documented as of this encounter
--- OUTSIDE RECORDS SUMMARY | 2025-07-09 15:05 | XMS_ITS | Encounter Summary ---
Author Organization [facility] Address [address] [place] [address] Care Team Providers Care Admitting Officer Name Role Phone Jessica Man VOCATIONAL EDUCATION PROFESSIONAL Primary Care Provider Mary Lim VOCATIONAL EDUCATION PROFESSIONAL Unavailable [phone] Reason for Visit * Reason Comments Referral - Liver Txp Encounter Details Date Type Department Care Team (Late st Contact Info) Description 05/17/2025 Telephone [facility] [address] [place] [address] Edda Méndez [place] [phone] Referral - Liver Txp Social History Tobacco [...] EDT Office Visit [facility] Endocrinology [address] [place] [address] Silvia Lewis, VOCATIONAL EDUCATION PROFESSIONAL [address] [place] [address] 08/04/2025 8:30 AM EDT Clinical Support [facility] [address] [place] [address] 08/04/2025 9:00 AM EDT Appointment [facility] Radiology [address] [place] [address] 08/04/2025 9:45 AM EDT Appointment [facility]iology [address], 1st [place] [address] 08/04/2025 10:00 AM EDT Clinical Support [facility] [address] [place] [address] CH - CLINICAL NUTRITION [address] [place] [address] 08/04/2025 11:00 AM EDT Office Visit [facility] [address] [place] [address] Lily Dickinson MD [address] [place] [address] 08/04/2025 11:30 AM EDT Social Work [facility] [address] [place] [address] Lav[address] Elaine [address] [place], [place] [address] 08/04/2025 2:30 PM EDT Appointment [facility] [address] [place] [address] 08/04/2025 3:00 PM EDT Appointment [facility] Pulmonary Function Testing [address] [place] [address] 11/02/2025 11:00 AM EST Office Visit [facility] Medicine Specialties [address], 2[address] [place] [address] Raman Chang PA [address] [place] [address] documented as of this encounter [...] documented as of this encounter Care Teams Admitting Officer Relationship Specialty Start Date End Date Jessica Man, VOCATIONAL EDUCATION PROFESSIONAL [address] [place] [id number] PCP - General 02/24/21 Mary Lim VOCATIONAL EDUCATION PROFESSIONAL [address] [place] [address] Referring Physician Gastroenterology 05/11/25 documented as of this encounter
--- OUTSIDE RECORDS SUMMARY | 2025-07-09 15:05 | XMS_ITS | Encounter Summary ---
Author Organization Healthcare Address [address] [place] [address] Care Team Providers Care Soap Maker Name Role Phone Jessica Man KEYSMITH Primary Care Provider [phone] Mary Lim KEYSMITH Unavailable [phone] Encounter Details Date Type Department Care Team (Late st Contact Info) Description 06/28/2025 Telephone [facility] Transplant Center [address] [facility] [address] [place] [address] Jaci Duenas, RN HOSPITAL LIVER [id number] [address] [id number] Social History Tobacco Use Types Packs/Day Years [...] Description 07/22/2025 3:40 PM EDT Office Visit [facility] Endocrinology [address] [place] [address] Silvia Lewis, KEYSMITH [address] [place] [address] 08/04/2025 8:30 AM EDT Clinical Support [facility] Transplant Center [address] [facility] [address] [place] [address] 08/04/2025 9:00 AM EDT Appointment [facility] Radiology [address] [place] [address] 08/04/2025 9:45 AM EDT Appointment [facility] Radiology [address], 1st [place] [address] 08/04/2025 10:00 AM EDT Clinical Support [facility] Transplant Center [address] [place] [address] CH - CLINICAL NUTRITION [address] [place] [address] 08/04/2025 11:00 AM EDT Office Visit [facility] Transplant Center [address] [place] [address] Lily Dickinson MD [address] [facility] [address] [place] [address] 08/04/2025 11:30 AM EDT Social Work [facility] Transplant Center [address] [place] [address] Elaine Banerjee [place], [place] [phone] 08/04/2025 2:30 PM EDT Appointment [facility] Radiology [address] [place] [address] 08/04/2025 3:00 PM EDT Appointment [facility] Pulmonary Function Testing [address] [place] [address] 11/02/2025 11:00 AM EST Office Visit [facility] Medicine Specialties [address] 2nd [place] [address] Raman Chang, PA [address] [facility] [address] [place] [address] documented as of this encounter [...] documented as of this encounter Care Teams Soap Maker Relationship Specialty Start Date End Date Jessica Man APRN [address] [place] [address] PCP - General 02/24/21 Mary Lim APRN [address] [place] [address] Referring Physician Gastroenterology 05/11/25 documented as of this encounter
--- OUTSIDE RECORDS SUMMARY | 2025-07-09 15:05 | XMS_ITS | Encounter Summary ---
Author Organization [facility] Address [address] [place] [address] Care Team Providers Care Personal Injury Legal Assistant Name Role Phone Jessica Man ASSISTANT ATHLETIC TRAINER Primary Care Provider [phone] Mary Lim ASSISTANT ATHLETIC TRAINER Unavailable [phone] Encounter Details Date Type Department Care Team (Late st Contact Info) Description 05/24/2025 Telephone [facility] Transplant Center [address] [facility] [address] [place] [address] Edda Méndez [place] [id number] Social History Tobacco Use Types Packs/Day Years [...] - 05/24/2025 10:13 AM EDT Called Ms Ewelina to follow up regarding her insurance - no answer, left voicemail message with contact information and request for return call. documented in this encounter Plan of Treatment Upcoming Encounters Date Type Department Care Team (Late st Contact Info) Description 07/22/2025 3:40 PM EDT Office Visit [facility] Endocrinology [address] [place] [address] Silvia Lewis, ASSISTANT ATHLETIC TRAINER [address] [place] [address] 08/04/2025 8:30 AM EDT Clinical Support [facility] Transplant [place] [address] [facility] [address] [place] [address] 08/04/2025 9:00 AM EDT Appointment [facility] Radiology [address] [place] [address] 08/04/2025 9:45 AM EDT Appointment [facility] Radiology [address], 1st [place] [address] 08/04/2025 10:00 AM EDT Clinical Support [facility] Transplant [place] [address] [facility] [address] [place] [address] [address] CH - CLINICAL NUTRITION [address] [place], [place] [phone] 08/04/2025 11:00 AM EDT Office Visit [facility] Transplant Center [address] [place] [address] Lily Dickinson MD [address] [place] [address] 08/04/2025 11:30 AM EDT Social Work [facility] Transplant Center [address] [place] [address] [place] [address] 08/04/2025 2:30 PM EDT Appointment [facility] Radiology [address] [place] [address] 08/04/2025 3:00 PM EDT Appointment [facility] Pulmonary Function Testing [address] [place] [address] 11/02/2025 11:00 AM EST Office Visit [facility] Medicine Specialties [address], 2nd [place] [address] Raman Chang, PA [address] [place] [address] documented as of this encounter Visit Diagnoses [...] documented as of this encounter Care Teams Personal Injury Legal Assistant Relationship Specialty Start Date End Date Jessica Man APRN [address] [place] [address] PCP - General 02/24/21 Mary Lim APRN [address] [place] [address] [id number] Referring Physician Gastroenterology 05/11/25 documented as of this encounter
--- OUTSIDE RECORDS SUMMARY | 2025-07-09 15:05 | XMS_ITS | Encounter Summary ---
Author Organization Healthcare Address [address] [place] [address] Care Team Providers Care Caramel Coloring Operator Name Role Phone Jessica Man [employer] PE TEACHER Primary Care Provider Mary Lim [employer] PE TEACHER Unavailable [phone] Encounter Details Date Type Department Care Team (Late Contact Info) Description 02/12/2025 Orders Only External Location [address] [place] [address] Provider, External Social History Tobacco Use Types [...] Encounters Date Type Department Care Team (Late Contact Info) Description 07/22/2025 3:40 PM EDT Office Visit [facility] Endocrinology [address] [place] [address] Silvia Lewis S, [employer] PE TEACHER [address] [place] [address] 08/04/2025 8:30 AM EDT Clinical Support [facility] Transplant [place] [address] [place] [address] 08/04/2025 9:00 AM EDT Appointment [facility] Radiology [address] [place] [address] 08/04/2025 9:45 AM EDT Appointment [facility] Radiology [address], 1st [place] [address] 08/04/2025 10:00 AM EDT Clinical Support [facility] Transplant [place] [address] [facility] [address] [place] [address] CH - CLINICAL NUTRITION [address] [place] [address] 08/04/2025 11:00 AM EDT Office Visit [facility] Transplant [place] [address] [place] [address] Lily Dickinson MD [address] [facility] [address] [place] [address] 08/04/2025 11:30 AM EDT Social Work [facility] Transplant [place] [address] [facility] [address] [place] [address] [place] [address] 08/04/2025 2:30 PM EDT Appointment [facility] Radiology [address] [place] [address] 08/04/2025 3:00 PM EDT Appointment [facility] Pulmonary Function Testing [address] [place] [address] 11/02/2025 11:00 AM EST Office Visit [place] [facility] Medicine Specialties [address], 2nd [place] [address] Raman Chang PA [address] [place] [address] documented as of this encounter [...] documented as of this encounter Care Teams Caramel Coloring Operator Relationship Specialty Start Date End Date Jessica Man APRN [address] [place] [address] PCP - General 02/24/21 Mary Lim APRN [address] [place] [address] Referring Physician Gastroenterology 05/11/25 documented as of this encounter
--- OUTSIDE RECORDS SUMMARY | 2025-07-09 15:05 | XMS_ITS | Encounter Summary ---
Author Organization Healthcare Address [address] [place] [address] Care Team Providers Care Stuntman Name Role Phone Jessica Man RECREATION MANAGER Primary Care Provider [phone] Mary Lim RECREATION MANAGER Unavailable [phone] Reason for Visit * Reason Onset Date Comments Med Refill 06/04/2025 Encounter Details Date Type Department Care Team (Late st Contact Info) Description 06/04/2025 [facility]ill [facility] Endocrinology [address] [place] [address] Jessica Aranda Social History Tobacco Use Types [...] Description 07/22/2025 3:40 PM EDT Office Visit [facility] Endocrinology [address] [place] [address] Silvia Lewis, RECREATION MANAGER [address] [place] [address] 08/04/2025 8:30 AM EDT Clinical Support [facility] Transplant Center [address] [facility] [address] [place] [address] 08/04/2025 9:00 AM EDT Appointment [facility] Radiology [address] [place] [address] 08/04/2025 9:45 AM EDT Appointment [facility] Radiology [address], 1st [place] [address] 08/04/2025 10:00 AM EDT Clinical Support [facility] Transplant Center [address] [place] [address] CH - CLINICAL NUTRITION [address] [place] [address] 08/04/2025 11:00 AM EDT Office Visit [facility] Transplant Center [address] [facility] [address] [place] [address] Lily Dickinson MD [address] [facility] [address] [place] [address] 08/04/2025 11:30 AM EDT Social Work [facility] Transplant Center [address] [facility] [address] [place] [address] [place] [address] 08/04/2025 2:30 PM EDT Appointment [facility] Radiology [address] [place] [address] 08/04/2025 3:00 PM EDT Appointment [facility] Pulmonary Function Testing [address] [place] [address] 11/02/2025 11:00 AM EST Office Visit [facility] Medicine Specialties [address] 2[address] [place] [address] Raman Chang, PA [address] [place] [address] documented as of this encounter Visit Diagnoses [...] documented as of this encounter Care Teams Stuntman Relationship Specialty Start Date End Date Jessica Man APRN [address] [place], [place] [phone] PCP - General 02/24/21 Mary Lim APRN [address] [place] [address] Referring Physician Gastroenterology 05/11/25 documented as of this encounter"
--- OUTSIDE RECORDS SUMMARY | 2025-07-09 15:05 | XMS_ITS | Encounter Summary ---
Author Organization Healthcare Address [address] [place] [address] Care Team Providers Care Shelf Filler Name Role Phone Jessica Man PUBLIC RELATIONS PLAYER Primary Care Provider Mary Lim PUBLIC RELATIONS PLAYER Unavailable [phone] Encounter Details Date Type Department Care Team (Late st Contact Info) Description 06/04/2025 Telephone [facility] Endocrinology [address] [place] [address] Silvia Lewis, PUBLIC RELATIONS PLAYER [address] [facility] [address] [place] [address] Social History Tobacco Use Types [...] 3:40 PM EDT Office Visit [facility] Endocrinology [address] [place] [address] Silvia Lewis, PUBLIC RELATIONS PLAYER [address] [place] [address] 08/04/2025 8:30 AM EDT Clinical Support [facility] Transplant Center [address] [place] [address] 08/04/2025 9:00 AM EDT Appointment [facility] Radiology [address] [place] [address] 08/04/2025 9:45 AM EDT Appointment [facility] Radiology [address] 1[address] [place] [address] 08/04/2025 10:00 AM EDT Clinical Support [facility] Transplant Center [address] [place] [address] CH - CLINICAL NUTRITION [address] [place] [address] 08/04/2025 11:00 AM EDT Office Visit [facility] Transplant Center [address] [place] [address] Lily Dickinson MD [address] [place] [address] 08/04/2025 11:30 AM EDT Social Work [facility] Transplant Center [address] [place] [address] [place] [address] 08/04/2025 2:30 PM EDT Appointment [facility] Radiology [address] [place] [address] 08/04/2025 3:00 PM EDT Appointment [facility] Pulmonary Function Testing [address] [place] [address] 11/02/2025 11:00 AM EST Office Visit [facility] Medicine Specialties [address] 2[address] [place] [address] Raman Chang PA [address] [place] [address] documented as of this encounter [...] documented as of this encounter Care Teams Shelf Filler Relationship Specialty Start Date End Date Jessica Man APRN [address] [place] [id number] PCP - General 02/24/21 Mary Lim, PUBLIC RELATIONS PLAYER [address] [place] [address] Referring Physician Gastroenterology 05/11/25 documented as of this encounter
--- OUTSIDE RECORDS SUMMARY | 2025-07-09 15:05 | XMS_ITS ---
Author Organization [facility] Address [address] [place] [address] Care Team Providers Care Spanish Language Lecturer Name Role Phone Jessica Man APRN Primary Care Provider [phone] Mary Lim APRN Unavailable [phone] Transplant Episode Liver Candidate [facility] ([place], [place]) - [facility] Evaluation began on 06/28/2025 Marked as Active on 06/28/2025 Liver CoordinatorJaci Duenas RN Fax: N/A Email: N/A Scores Score Value Updated Expires Exceptions/[place] sons CPRA Not available MELD (Calc) 18 06/25/2025 [employer] [place] Organ Diagnosis Organ Primary Contributory Liver Cirrhosis: Metabolic Dysfunction -Associated Steatohepatitis (MAS) Care Team Name Role Phone Fax Email Jaci Duenas RN Liver Coordinator [phone] N/A N/A Mary Lim APRN Referring Physician [phone] N/A Jessica Man APRN Primary Care Provider [phone] N/A Elaine Banerjee Warp Picker [phone] N/A N/A Donnie Jordan MD Surgeon [phone] N/A Events Pre-Transplant Referred: 05/11/2025 Evaluation began: 06/28/2025 Committee: 06/28/2025 Appointments (06/08/2025 - 08/08/2025) When With Visit Type Description 06/25/2025 Transplant - Kristie Amado LAB End-st age liver disease (CMS/HCC) 06/25/2025 Transplant - Marianna Fierro Initial Clinic Evaluation End-stage liver disease (CMS/HCC) (Primary Dx); Decompensated hepatic cirrhosis (CMS/HCC); Other ascites; Metabolic dysfunction-associated steatotic liver disease (MASLD); Alpha 1-antitrypsin PiMS phenotype; Tobacco abuse 08/04/2025 Transplant LAB 08/04/2025 Transplant - Pau Mahoney Dietitian - New Patient 08/04/2025 Transplant - Deng Banerjee ordeng - New Patient 08/04/2025 Transplant - Iraida Dickinson Office Vi sit - Transplant
--- OUTSIDE RECORDS SUMMARY | 2025-07-09 15:05 | XMS_ITS | Encounter Summary ---
Author Organization Healthcare Address [address] [place] [address] Care Team Providers Care Banker Mason Name Role Phone Jessica Man IT BUSINESS ANALYST Primary Care Provider [phone] Mary Lim IT BUSINESS ANALYST Unavailable [phone] Encounter Details Date Type Department Care Team (Late Contact Info) Description 06/28/2025 Orders Only [facility] Transplant Center [address] [place] [address] Jaci Duenas, RN HOSPITAL LIVER [id number] [address] [phone] Social History Tobacco Use Types Packs/Day Years [...] EDT Office Visit [facility] Endocrinology [address] [place] [address] Silvia Lewis, IT BUSINESS ANALYST [address] [place] [address] 08/04/2025 8:30 AM EDT Clinical Support [facility] Transplant Center [address] [facility] [address] [place] [address] 08/04/2025 9:00 AM EDT Appointment [facility] Radiology [address] [place] [address] 08/04/2025 9:45 AM EDT Appointment [facility] Radiology [address], 1[address] [place] [address] 08/04/2025 10:00 AM EDT Clinical Support [facility] Transplant Center [address] [facility] [address] [place] [address] CH - CLINICAL NUTRITION [address] [place] [address] 08/04/2025 11:00 AM EDT Office Visit [facility] Transplant [place] [address] [facility] [address] [place] [address] Lily Dickinson MD [address] [facility] [address] [place] [address] 08/04/2025 11:30 AM EDT Social Work [facility] Transplant Center [address] [facility] [address] [place] [address] [place] [address] 08/04/2025 2:30 PM EDT Appointment [facility] Radiology [address] [place] [address] 08/04/2025 3:00 PM EDT Appointment [facility] Pulmonary Function Testing [address] [place] [address] 11/02/2025 11:00 AM EST Office Visit [place] [facility] Medicine Specialties [address] 2[address] [place] [address] Raman Chang, PA [address] [place] [address] documented as of this encounter [...] documented as of this encounter Care Teams Banker Mason Relationship Specialty Start Date End Date Jessica Man APRN [address] [place] [address] PCP - General 02/24/21 Mary Lim APRN [address] [place] [address] Referring Physician Gastroenterology 05/11/25 documented as of this encounter
--- OUTSIDE RECORDS SUMMARY | 2025-07-09 15:06 | XMS_ITS | Continuity of Care Document ---
Author Organization [facility] Address [address] [place] [address] Care Team Providers Care Dehydrator Operator Name Role Phone ELIS SEGUNDO Primary Care Provider [phone] MARY LIM Office Administration Instructor [phone] Assessment No assessment recorded. Plan of Treatment Reminders Order Date Submit Date Provider Last Modified By Organization Details Last Modified Time Details Appointments None recorded. Lab PT/INR 2024 025 [facility] (Lab Registration) , [address] [place] [address] [place], [address], 5 09:47:40 CMP, serum or plasma 2024 025 [facility] (Lab Registration) , [address] [place] [address] [place], [address], 5 09:47:40 CBC w/ auto diff 2024 025 [facility] (Lab Registration) , [address] [place] [address] [place], [address], 5 09:47:40 ammonia, blood 2024 025 [facility] (Lab Registration) , [address] [place] [address] [place], [address], 5 09:47:40 Referral liver transplant referral 2024 025 [facility] ([facility]), [address], [place], [address], 09:14:21 Procedures None recorded. Surgeries None recorded. Imaging US, abdomen, limited 2024 025 [id number] [facility] Centralized Scheduling, [address] [place], [address], 14:12:40 Medication Orders Linzess 290 mcg capsule 2024 025 Call Britannia, [address] [place] [address], [phone], 11:24:43 spironolac tone 100 mg tablet 2024 025 Call Britannia, [address] [place] [address], [phone], 14:12:51 furosemide 40 mg tablet 2024 025 Call Britannia, [address] [place] [address], [phone], 14:56:03 Patient TargetsNo targets recorded. Patient InstructionsNo instructions recorded. Reason for Referral Liver Transplant Referral fo r Cirrhosis of liver Referring Physician: Mary Lim, Gastroenterology, Encounter Date: 05/10/2025 Results Created Date Observation Date Name Description Value Unit Range Abnormal Flag Note LastModifiedBy Organization Detail LastModifiedTime 04/14/2004/14/2025 CELL COUNT body fluid count performed by: AUTOMA MINDA COUNT Not Available [facility] (Pre-Op Clinic) [address] [place] [address] [place], [address], 04/14/2025 10:55:40 04/14/20 25 04/14/2025 CELL COUNT source PERITO SAM Not Available [facility] (Pre-Op Clinic) [address] [place] [address] [place], [address], 04/14/2025 10:55:40 04/14/20 25 04/14/2025 CELL COUNT color STRAW clear Not Available [facility] (Pre-Op Clinic) [address] [place] [address] [place], [address], 04/14/2025 10:55:40 04/14/20 25 04/14/2025 CELL COUNT apperance HAZY clear Not Available [facility] (Pre-Op Clinic) [address] [place] [address] [place], [address], 04/14/2025 10:55:40 04/14/20 25 04/14/2025 CELL COUNT volume 4000 cc Not Available [facility] (Pre-Op Clinic) [address] [place] [address] [place], [address], 04/14/2025 10:55:40 04/14/20 25 04/14/2025 CELL COUNT viscosity NORMAL normal Not Available [facility] (Pre-Op Clinic) [address] [place] [address] [place], [address], 04/14/2025 10:55:40 04/14/20 25 04/14/2025 CELL COUNT WBC 244 /uL Not Available [facility] (Pre-Op Clinic) [address] [place] [address] [place], [address], 04/14/2025 10:55:40 04/14/20 25 04/14/2025 CELL COUNT RBC <1000 /uL Not Available [facility] (Pre-Op Clinic) [address] [place] [address] [place], [address], 04/14/2025 10:55:40 04/14/20 25 04/14/2025 CELL COUNT polynuclear 14.4 % Not Available [facility] (Pre-Op Clinic) [address] [place] [address] [place], [address], 04/14/2025 10:55:40 04/14/20 25 04/14/2025 CELL COUNT mononuclear 85.6 % ALL COUNT S PERFO RMED ON HEMAC YTOME TER ARE DONE IN [place]. Not Available [facility] (Pre-Op Clinic) [address] [place] [address] [place], [address], 04/14/2025 10:55:40 04/14/20 25 04/14/2025 CELL COUNT note Unles s other jeffries noted testi ng perfo [facility]med at: [facility] [address] [place] [address] Bryant barr MD Not Available [facility] (Pre-Op Clinic) [address] [place] [address] [place], [address], 04/14/2025 10:55:40 04/14/20 25 04/14/2025 CULTU RE BODY FLUID results B 04-15 728 No Growt h at 1 Day AE 04-16 840 No Growt h at 2 Days AE 04-17 926 No Growt h at 3 Days Not Available [facility] (Pre-Op Clinic) [address] [place] [address] [place], [address], 04/17/2025 09:27:26 04/14/20 25 04/14/2025 CULTU RE BODY FLUID note Unles s other jeffries noted testi ng perfo rmed at: [facility] [address] [place] [address] Bryant barr MD Not Available [facility] (Pre-Op Clinic) [address] [place] [address] [place], [address], 04/17/2025 09:27:26 04/14/2004/14/2025 GRAM STAIN source PERITO SAM Not Available [facility] ([facility]Op [facility]) [address] [place] [address] [place], [address], 04/14/2025 11:32:47 04/14/20 25 04/14/2025 GRAM STAIN organism #1 NO ORGANI SMS Not Available [facility] (Pre-Op Clinic) [address] [place] [address] [place], [address], 04/14/2025 11:32:47 04/14/20 25 04/14/2025 GRAM STAIN WBC RARE no WBC's seen Not Available [facility] ([facility]Op [facility]) [address] [place] [address] [place], [address], 04/14/2025 11:32:47 04/14/20 25 04/14/2025 GRAM STAIN yeast NONE SEEN none seen Not Available [facility] ([facility]Op [facility]) [address] [place] [address] [place], [address], 04/14/2025 11:32:47 04/14/20 25 04/14/2025 GRAM STAIN gram positive QC slide PASS PASS Not Available [facility] (Pre[facility]Op [facility]) [address] [place] [address] [place], [address], 04/14/2025 11:32:47 04/14/20 25 04/14/2025 GRAM STAIN gram negative QC slide PASS PASS Not Available [facility] ([facility]Op [facility]) [address] [place] [address] [place], [address], 04/14/2025 11:32:47 04/14/20 25 04/14/2025 GRAM STAIN note Unles s other jeffries noted testi ng perfo rmed at: [facility] [address] [place] [address] Bryant barr MD Not Available [facility] ([facility]Op [facility]) [address] [place] [address] [place], [address], 04/14/2025 11:32:47 04/28/20 25 04/28/2025 CULTU RE BODY FLUID results RK 04-29 1124 No Growt h at [address] [facility] 04-30 546 No Growt h at [address] [facility] 05-01 522 No Growt h at 3 Days Not Available [facility] ([facility]Op [facility]) [address] [place] [address] [place], [address], 05/01/2025 05:24:37 04/28/20 25 04/28/2025 CULTU RE BODY FLUID note Unles s other jeffries noted testi ng perfo rmed at: [facility] [address] [facility] [place] [address] Bryant barr MD Not Available [facility] ([facility]Op [facility]) [address] [place] [address] [place], [address], 05/01/2025 05:24:37 04/28/20 25 04/28/2025 GRAM STAIN source PERITO SAM Not Available [facility] ([facility]Op [facility]) [address] [place] [address] [place], [address], 04/28/2025 13:36:11 04/28/20 25 04/28/2025 GRAM STAIN organism #1 NO ORGANI SMS Not Available [facility] ([facility]Op [facility]) [address] [place] [address] [place], [address], 04/28/2025 13:36:11 04/28/20 25 04/28/2025 GRAM STAIN WBC NO WBC'S SEEN no WBC's seen Not Available [facility] ([facility]Op [facility]) [address] [place] [address] [place], [address], 04/28/2025 13:36:11 04/28/20 25 04/28/2025 GRAM STAIN yeast NONE SEEN none seen Not Available [facility] ([facility]-Op [facility]) [address] [place] [address] [place], [address], 04/28/2025 13:36:11 04/28/20 25 04/28/2025 GRAM STAIN gram positive QC slide BY MICRO TECH PASS Not Available [facility] ([facility]Op [facility]) [address] [place] [address] [place], [address], 04/28/2025 13:36:11 04/28/20 25 04/28/2025 GRAM STAIN gram negative QC slide BY MICRO TECH PASS Not Available [facility] ([facility]Op [facility]) [address] [place] [address] [place], [address], 04/28/2025 13:36:11 04/28/20 25 04/28/2025 GRAM STAIN note Unles s other jeffries noted testi ng perfo rmed at: [facility] [address] [facility] [place] [address] Bryant barr MD Not Available [facility] ([facility]Op [facility]) [address] [place] [address] [place], [address], 04/28/2025 13:36:11 04/28/20 25 04/28/2025 CELL COUNT body fluid count performed by: AUTOMA MINDA COUNT Not Available [facility] ([facility]Op [facility]) [address] [place] [address] [place], [address], 04/28/2025 14:53:24 04/28/20 25 04/28/2025 CELL COUNT source PERITO SAM Not Available [facility] ([facility]Op [facility]) [address] [place] [address] [place], [address], 04/28/2025 14:53:24 04/28/20 25 04/28/2025 CELL COUNT color STRAW clear Not Available [facility] ([facility]Op [facility]) [address] [place] [address] [place], [address], 04/28/2025 14:53:24 04/28/20 25 04/28/2025 CELL COUNT apperance CLEAR clear Not Available [facility] ([facility]Op [facility]) [address] [place] [address] [place], [address], 04/28/2025 14:53:24 04/28/20 25 04/28/2025 CELL COUNT viscosity NORMAL normal Not Available [facility] ([facility]Op [facility]) [address] [place] [address] [place], [address], 04/28/2025 14:53:24 04/28/20 25 04/28/2025 CELL COUNT WBC 288 /uL Not Available [facility] ([facility]) [address] [place] [address] [place], [address], 04/28/2025 14:53:24 04/28/20 25 04/28/2025 CELL COUNT RBC 2000 /uL Not Available [facility] ([facility]Op [facility]) [address] [place] [address] [place], [address], 04/28/2025 14:53:24 04/28/20 25 04/28/2025 CELL COUNT polynuclear 90 % Not Available [facility] ([facility]Op [facility]) [address] [place] [address] [place], [address], 04/28/2025 14:53:24 04/28/20 25 04/28/2025 CELL COUNT mononuclear 10 % ALL COUNT S PERFO RMED ON HEMAC YTOME TER ARE DONE IN [place]. Not Available [facility] ([facility]Op [facility]) [address] [place] [address] [place], [address], 04/28/2025 14:53:24 04/28/20 25 04/28/2025 CELL COUNT note Unles s other jeffries noted testi ng perfo [facility]med at: [facility] [address] [place] [address] Bryant barr MD Not Available [facility] ([facility]) [address] [place] [address] [place], [address], 04/28/2025 14:53:24 Result Notes None recorded. Problems Name Problem SNOMED Code Status Onset Date Resolution Date Notes Provider Name and Address Organization Details Recorded Time Nausea and vomiting 18730787 Active 2022 Mary Lim NP [address], [address], [place], [address], [place] [facility] & [place] 3 10:32:37 Gastro-esophag eal reflux disease with esophagitis 721990283 Active 2022 Mary Lim NP [address], [address], [place], [address], [place] [facility] & [place] 3 10:32:42 Esophageal dysphagia 57248756 Active 2022 Mary Lim NP [address], [address], [place], [address], [place] [facility] [place] & [place] 3 10:32:47 Cirrhosis of liver 65949992 Active 2022 Mary Lim NP [address], [address], [place], [address], [place] [facility] [place] & [place] 3 10:33:29 Irritable bowel syndrome characterized by constipation 869407835 Active 2022 Mary Lim NP [address], [address], [place], [address], [place] [facility] [place] & [place] 3 10:35:16 Gastroparesis syndrome 059333321 Active 2022 Mary Lim NP [address], [address], [place], [address], [place] [facility] [place] & [place] 3 10:16:12 Abnormal liver function 73206742 Active 2022 Mary Lim NP [address], [address], [place], [address], [place] [facility] [place] & [place] 3 10:17:06 Hematemesis 3822049 Active 2023 Mary Lim NP [address], [address], [place], [address], [place] [facility] [place] & [place] 4 14:55:13 Hematochezia 250859032 Active 2023 Mary Lim NP [address], [address], [place], [address], [place] [facility] [place] 4 14:55:26 Ascites 498979072 Active 2024 Mary Lim NP [address], [address], [place], [address], [place] [facility] [place] & [place] 5 11:40:32 Problem Notes None recorded. Procedures Surgical History Date Name Laterality Status Provider Name and Address Organization Details Recorded Time 024 EGD/Endoscopy completed Mary Lim NP [address], [address], [place], [address], [place] [facility] [place] 08/26/2024 15:18:45 024 Colonoscopy completed Mary Lim NP [address], [address], [place], [address], [place] [facility] & [place] 08/26/2024 15:18:55 023 EGD/Endoscopy completed Hellen Frost [place] - [facility] [place] & [place] 01/02/2023 09:50:14 022 EMG/ Nerve Conduction Study completed Kevin Gray M.D [address], [address], [place], [address], [place] [facility] & [place] 09/26/2022 13:00:24 022 completed Katt Carl [place] - [facility] [place] & [place] 08/26/2024 13:28:04 020 Date of Last Colonoscopy completed Katt Carl [place] [facility] [place] & [place] 08/26/2024 13:28:04 020 Date of Last Pap Smear completed Katt [place] [facility] [place] 08/26/2024 13:28:04 992 Gastrointestinal Surgery completed Annetta Johnson [place] [facility] [place] & [place] 07/01/2023 10:37:26 990 Other completed Katt [place] [facility] & [place] 08/26/2024 13:28:11 Cholecystectomy completed Annetta Johnosn [place] - [facility] & [place] 09/11/2022 08:39:10 Removal of fallopian tube completed Annetta Johnson [place] [facility] & [place] 09/11/2022 08:39:25 Imaging Results None recorded. Procedure Notes None recorded. Medical Equipment None Reported. Allergies Allergen ID Allergen Name Allergen Category Reaction Reaction Severity Criticality Documentation Date Start Date Code Code System Note Provider Name and Address Organization Details Recorded Time 01700 Chantix medicatio n Not available Not available Not available 09/11/2022 99845 0 RxNorm Annetta marroquin, JAMIE SOLORIO [facility] & [place] 2 08:37:50 56383 E-Mycin medicatio n Not available Not available Not available 09/11/2022 24031 8 RxNorm JAMIE Lemons [facility] & [place] 2 08:38:03 62651 Jardiance medicatio n Not available Not available Not available 07/01/2023 89449 59 RxNorm Annetta marroquin, JAMIE Jha [place] & [place] 3 10:37:24 Medications Name Sig Start Date [...] Available Not Avai lable Comfort EZ Pen [place] 32 gauge x 5/32 USE TO INJECT [...] Available Not Available Not Available Dexcom [employer] USE TO MONITOR BLOOD SUGAR DIRECTED 07/10 [...] Updated DateTime 5 172.72 cm 31.9 kg/m2 29848.6 8 g 97.4 [degF] 99 % 99 % 91 /min Katt Carl [facility] & [place] 13:22:50 Social History Question Answer Notes LastModified by [employer] Details LastModified Time Tobacco Smoking Status Current Every Day Smoker Annetta Johnson [facility], [facility] & [place] 09/11/2022 08:40:15 Do You Have An Advance Directive? No [email or web address] Information not available 07/01/2023 Are You Blind Or Do You Have Difficulty Seeing? No [email or web address] Information not available 07/01/2023 What Was The Date Of Your Most Recent Tobacco Screening? 10/16/2021 Information not available 08/26/2024 Are You Passively Exposed To Smoke? Yes [email or web address] Information not available 07/01/2023 How Much Tobacco Do You Smoke? 1 PPD [email or web address] Information not available 07/01/2023 How Many Years Have You Smoked Tobacco? 26 Information not available 08/26/2024 Sex: Female Functional Status Question Answer Note LastModified by [employer] Details LastModified Time Do you use any illicit or recreational drugs? Yes [email or web address] Information not available 07/01/2023 What is your level of alcohol consumption? None [email or web address] Information not available 07/01/2023 Do you or have you ever used smokeless tobacco? [id number] [email or web address] Information n ot available 07/01/2023 What is your exercise level? None Information not available 08/26/2024 Mental Status Question Answer Note LastModified by Organization D etails LastModified Time Do you feel stressed (tense, restless, nervous, or anxious, or unable to sleep at night)? [id number] [email or web address] Information not available 07/01/2023 Family History Relationship Description Onset Age of this Age Resolved Age Notes LastModified by Organization Details LastModified Time Mother Hypertensive disorder [email or web address] Not available 2021 08:39:41 Mother Cerebrovascu lar accident [email or web address] Not available 08:39:49 Mother Allergy pt. added direct ly (09/22) [email or web address] Not available 09/22/2022 12:40:30 Mother Hypercholest erolemia pt. added direct ly (09/22) [email or web address] Not available 09/22/2022 12:41:40 Mother Mental health problem pt. added direct ly (09/22) [email or web address] Not available 09/22/2022 12:41:57 Father Diabetes mellitus [email or web address] Not available 2024 13:07:21 Father Disorder of [...] Problems Y Arthritis Y Back Problems Y GI Problems Y COPD Y High Cholesterol Y Liver Disease Y [...] ICD10 Code Diagnosis IMO Codes Diagnosis Note [id number] [facility] [address] [place] [address] [address] [place] [address] 05/10/2025 13:01:32 05/10/2025 14:01:44 Cirrhosis of liver 06674317 K74.[address] 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 [...] falls. Gastro-eso phageal reflux disease with esophagitis 771972767 K21.00 Continues Omeprazole 40 mg BID and Famotidine 40 mg for treatment. Gastropare sis syndrome 572358535 K31.84 Delayed gastric emptying noted on gastric emptying study 11/02/2022 . Occasional symptoms at this time. Continues Reglan 5 mg prn and Zofran 4 mg prn. She has made dietary changes and previously met with Interior Design Project Manager. Irritable bowel syndrome characterized by constipation 302462732 K58.1 Continues Linzess 290 mcg Land Lactulose prn for treatment. Previously failed treatment with stool softeners, fiber, Ibsrela samples. Will send refills today. Symptoms previously improved with [employer] however denied by insurance. Ascites [id number] R18.8 [id number] Refractory ascites requiring weekly paracentes is despite use of diuretics and low sodium diet. Plan to maximize diuretic therapy and monitor labs closely. Will refer to [facility] to further evaluate. Health Concerns Section Related Observation LastModified by Organization Detai ls LastModified Time None Recorded Concern Status LastModified by Organization Details LastModified Time None Recorded Payers Encounter Date Sequence Insurance Name Policy Number Policy [place] Covered Member ID [place] Member ID Guarantor Name 05/10/2025 1 [place] Luz Vuong [id number] Luz Theodore Notes Date Note Type Note Provider Name and Address Organization Details Recorded Time 05/10/2025 text/html Patient returns to clinic today [...] hyperplastic polyp as well as chronic reflux esophagitis.Colono scopy 06/12/24 with several polyps resected throughout the colon consistent with hyperplastic polyps. Plan to repeat colonoscopy 05/2029 for surveillance due to history colon polyps. Mary Lim NP [address] [place] [address], [address], [place], [address], [facility] - [place] - [place] & [place] 05/10/2025 22:52:26 OBGyn Episode No OBEpisode recorded.
--- OUTSIDE RECORDS SUMMARY | 2025-07-09 15:06 | XMS_ITS | Encounter Summary ---
Author Organization [facility] Address [address] [place] [address] Care Team Providers Care Drum Puller Name Role Phone Jessica Man TRAVELERS' AID WORKER Primary Care Provider [phone] Mary Lim TRAVELERS' AID WORKER Unavailable [phone] Reason for Referral * Consultation (Routine) - Closed Specialty Diagnoses / Procedures Referred By Contshiloh t Referred To Contact Transplant Diagnoses End-stage liver disease (CMS/HCC) Donnie Jordan MD [address] [address] Phone: tel: fax: [facility] [place] [address] [address] Phone: tel: fax: Referral ID Status Reason Start Date Expiration Date V isits Requested Visits Authorized [id number] Closed Specialty Services Required 05/26/2025 11/25/2026 1 1 Reason for Visit * Reason Comments Appointment Scheduling Encounter Details Date Type Department Care Team (Late st Contact Info) Description 05/26/2025 Telephone [facility] [place] [address] [address] Edda Méndez [place] [phone] Appointment (Scheduling) Social History Tobacco Use Types [...] to clinic. New Patient materials attached to [employer]. Notified referring - left voicemail message for Shilpi Henry. documented in this encounter Plan of Treatment Upcoming Encounters Date Type Department Care Team (Late st Contact Info) Description 07/22/2025 3:40 PM EDT Office Visit [facility] Endocrinology [address] [place] [phone] Silvia Lewis, TRAVELERS' AID WORKER [address] [place] [phone] 08/04/2025 8:30 AM EDT Clinical Support [facility] [address] [facility] [address] [place] [phone] 08/04/2025 9:00 AM EDT Appointment [facility] [address] [place] [address] 08/04/2025 9:45 AM EDT Appointment [facility] [address], 1[address] [place] [address] 08/04/2025 10:00 AM EDT Clinical Support [facility] [place] [address] [address] Lurdes Mahoney, SINDI CH - CLINICAL NUTRITION [address] [place] [address] 08/04/2025 11:00 AM EDT Office Visit [facility] [place] [address] [phone] Lily Dickinson MD [address] [phone] 08/04/2025 11:30 AM EDT Social Work [facility] [place] [address] [phone] [place] [address] 08/04/2025 2:30 PM EDT Appointment [facility] [address] [place] [address] 08/04/2025 3:00 PM EDT Appointment [facility] Pulmonary Function Testing [address] [place] [address] 11/02/2025 11:00 AM EST Office Visit [facility] [address], 2nd [place] [address] Raman Chang PA [address] [phone] Pending Results Name Type Priority Associated Diagnoses Date /Time Pain Management, Quantitative Urine Drug Testing Lab Routine End-stage liver disease (CMS/HCC) 06/25/2025 7:32 AM EDT Scheduled Orders Name Type Priority Associated Diagnoses Orde r Schedule Pain Management, Quantitative Urine Drug Testing Lab [...] Test performed by Gas Chromatography at the [facility] Special Chemistry Laboratory. This test was developed and its performance characteristics determined by [facility]. It has not been cleared or approved by the FDA.The laboratory is regulated under CLIA as qualified to perform high-complexity testing. This test is used for clinical purposes only. Donnie Jordan MD LAB URINE ORDERABLES Final Resul t [facility] [address] [place] [address] * (ABNORMAL) Comprehensive Urine Drug Screening, Qualitative Assay, >= 27 Drug Classes (57:32 AM EDT) Acetaminophen Negative Negative 06/30/2025 11:34 AM EDT [facility] Alprazolam Negative Negative 06/30/2025 11:34 AM EDT [facility] Amantadine Negative Negative 06/30/2025 11:34 AM EDT [facility] Amitriptyline Negative Negative 06/30/2025 11:34 AM EDT [facility] Amphetamine Negative Negative 06/30/2025 11:34 AM EDT [facility] Atenolol Negative Negative 06/30/2025 11:34 AM EDT [facility] Benzoylecgonine Negative Negative 11:34 AM EDT [facility] Bisoprolol Negative Negative 06/30/2025 11:34 AM EDT [facility] Bupropion Negative Negative 06/30/2025 11:34 AM EDT [facility] Butalbital Negative Negative 06/30/2025 11:34 AM EDT [facility] Carbamazepine Negative Negative 06/30/2025 11:34 AM EDT [facility] Carisoprodol Negative Negative 06/30/2025 11:34 AM EDT [facility] Chlorpheniramine Negative Negative 06/30/20 11:34 AM EDT [facility] Citalopram Negative Negative 06/30/2025 11:34 AM EDT [facility] Clindamycin Negative Negative 06/30/2025 11:34 AM EDT [facility] Clonidine Negative Negative 06/30/2025 11:34 AM EDT [facility] Clopidogrel / Ticlopidine Negative Negative 06/30/2025 11:34 AM EDT [facility] Cocaethylene Negative Negative 06/30/2025 11:34 AM EDT [facility] Cocaine Negative Negative 06/30/2025 11:34 AM EDT [facility] Codeine Negative Negative 06/30/2025 11:34 AM EDT [facility] Cyclobenzaprine Negative Negative 11:34 AM EDT [facility] Desvenlafaxine Negative Negative 06/30/2025 11:34 AM EDT [facility] Dextromethorphan Negative Negative 06/30/20 11:34 AM EDT [facility] Diazepam Negative Negative 06/30/2025 11:34 AM EDT [facility] Diltiazem Negative Negative 06/30/2025 11:34 AM EDT [facility] Diphenhydramine Negative Negative 11:34 AM EDT [facility] Doxepine Negative Negative 06/30/2025 11:34 AM EDT [facility] Doxylamine Negative Negative 06/30/2025 11:34 AM EDT [facility] EDDP-Methadone metabolite Negative Negative 06/30/2025 11:34 AM EDT [facility] Fentanyl Negative Negative 06/30/2025 11:34 AM EDT [facility] Fluconazole Negative Negative 06/30/2025 11:34 AM EDT [facility] Fluoxetine Negative Negative 06/30/2025 11:34 AM EDT [facility] Guaifenesin Negative Negative 06/30/2025 11:34 AM EDT [facility] Haloperidol Negative Negative 06/30/2025 11:34 AM EDT [facility] Heroin/6-TERRY Negative Negative 06/30/2025 11:34 AM EDT [facility] Hydrocodone Negative Negative 06/30/2025 11:34 AM EDT [facility] Hydroxyzine / Cetirizine metabolite Positive(A) Negative 06/30/2025 11:34 AM EDT [facility] Ibuprofen Negative Negative 06/30/2025 11:34 AM EDT [facility] Imipramine Negative Negative 06/30/2025 11:34 AM EDT [facility] Ketamine Negative Negative 06/30/2025 11:34 AM EDT [facility] Labetolol Negative Negative 06/30/2025 11:34 AM EDT [facility] Lamotrigine Negative Negative 06/30/2025 11:34 AM EDT [facility] Levetiracetam Negative Negative 06/30/2025 11:34 AM EDT [facility] Lidocaine Positive(A) Negative 06/30/2025 11:34 AM EDT [facility] MDA Negative Negative 06/30/2025 11:34 AM EDT [facility] MDMA Negative Negative 06/30/2025 11:34 AM EDT [facility] Memantine Negative Negative 06/30/2025 11:34 AM EDT [facility] Meperidine Negative Negative 06/30/2025 11:34 AM EDT [facility] Meprobamate Negative Negative 06/30/2025 11:34 AM EDT [facility] Metaxalone Negative Negative 06/30/2025 11:34 AM EDT [facility] Methamphetamine Negative Negative 11:34 AM EDT [facility] Methocarbamol Negative Negative 06/30/2025 11:34 AM EDT [facility] Methylecgonine Negative Negative 06/30/2025 11:34 AM EDT [facility] Metoclopramide Negative Negative 06/30/2025 11:34 AM EDT [facility] Metoprolol Negative Negative 06/30/2025 11:34 AM EDT [facility] Metronidazole Negative Negative 06/30/2025 11:34 AM EDT [facility] Midazolam Negative Negative 06/30/2025 11:34 AM EDT [facility] Midazolam Metabolite Negative Negative 06/30/2025 11:34 AM EDT [facility] Mirtazapine Negative Negative 06/30/2025 11:34 AM EDT [facility] Misc Test Result Negative Negative 06/30/20 11:34 AM EDT [facility] Naproxen Negative Negative 06/30/2025 11:34 AM EDT [facility] Nefazodone Negative Negative 06/30/2025 11:34 AM EDT [facility] Norfentanyl Negative Negative 06/30/2025 11:34 AM EDT [facility] Nortriptyline Negative Negative 06/30/2025 11:34 AM EDT [facility] Ordanstron Negative Negative 06/30/2025 11:34 AM EDT [facility] Oxcarbazepine Negative Negative 06/30/2025 11:34 AM EDT [facility] Oxycodone Negative Negative 06/30/2025 11:34 AM EDT [facility] Paroxethine Negative Negative 06/30/2025 11:34 AM EDT [facility] Phenobarbital Negative Negative 06/30/2025 11:34 AM EDT [facility] Phentermine Negative Negative 06/30/2025 11:34 AM EDT [facility] Phenytoin Negative Negative 06/30/2025 11:34 AM EDT [facility] Primidone Negative Negative 06/30/2025 11:34 AM EDT [facility] Promethazine Negative Negative 06/30/2025 11:34 AM EDT [facility] Propofol Negative Negative 06/30/2025 11:34 AM EDT [facility] Propranolol Negative Negative 06/30/2025 11:34 AM EDT [facility] Quetiapine Negative Negative 06/30/2025 11:34 AM EDT [facility] Quinine Negative Negative 06/30/2025 11:34 AM EDT [facility] Rantidine Negative Negative 06/30/2025 11:34 AM EDT [facility] Sertraline Negative Negative 06/30/2025 11:34 AM EDT [facility] Spironolactone Negative Negative 06/30/2025 11:34 AM EDT [facility] Tizanidine Negative Negative 06/30/2025 11:34 AM EDT [facility] Topiramate Negative Negative 06/30/2025 11:34 AM EDT [facility] Tramadol Negative Negative 06/30/2025 11:34 AM EDT [facility] Trazadone/ Trazadone metabolite Negative Negative 06/30/2025 11:34 AM EDT [facility] Trimethoprim Negative Negative 06/30/2025 11:34 AM EDT [facility] Valproic Acid Negative Negative 06/30/2025 11:34 AM EDT [facility] Venlafaxine Negative Negative 06/30/2025 11:34 AM EDT [facility] Verapamil Negative Negative 06/30/2025 11:34 AM EDT [facility] Zolpidem Negative Negative 06/30/2025 11:34 AM EDT [facility] Xylazine Negative Negative 06/30/2025 11:34 AM EDT [facility] Urine Urine specimen obtained by clean catch procedure / Unknown Non-blood Collection / Unknown 06/25/2025 7:32 AM EDT 06/25/2025 8:34 AM EDT us Donnie Jordan MD LAB URINE ORDERABLES Final Resul t Performing Organization Address [facility] Co de Phone Number [facility] [address] [place] [address] * (ABNORMAL) Hepatitis A Antibody IgG (06/25/2025 7:08 AM EDT) Hepatitis A Antibody IgG Positive(A ) Negative 06/25/2025 9:15 AM EDT [facility] Blood Venous blood specimen / Unknown Venipuncture / Unknown 06/25/2025 7:08 AM EDT 06/25/2025 7:47 AM EDT us Donnie Jordan MD LAB BLOOD ORDERABLES Final Resul t Performing Organization Address [facility] Co de Phone Number [facility] [address] [place] [address] * HEPATITIS B SURFACE ANTIBODY, QUANTITATIVE (06/25/2025 [...] ORDERABLES Final Resul t Performing Organization Address City/[facility] Co de Phone Number [facility] [address] [place] [address] * Hepatitis B Surface Antigen (06/25/2025 7:08 AM EDT) Hepatitis B Surf Antigen Negative Negative 06/25/2025 9:15 AM EDT [facility] Blood Venous blood specimen / Unknown Venipuncture / Unknown 06/25/2025 7:08 AM EDT 06/25/2025 7:47 AM EDT Donnie Jordan MD LAB BLOOD ORDERABLES Final Resul t Performing Organization Address City/[facility]/ZIP Co de Phone Number [facility] [address] [place] [address] * Hepatitis C Antibody (06/25/2025 7:08 AM EDT) [facility] Hepatitis C Antibody Negative Negative 06/25/2025 8:31 AM EDT [facility] Blood Venous blood specimen / Unknown Venipuncture / Unknown 06/25/2025 7:08 AM EDT 06/25/2025 7:47 AM EDT Donnie Jordan MD LAB BLOOD ORDERABLES Final Resul t Performing Organization Address [facility] Co [place] Phone Number [facility] [address] [place] [address] * (ABNORMAL) Nicotine Cotinine Metabolite (06/25/2025 7:08 AM EDT) [facility] NICOTINE <5 <5 ng/mL 06/29/2025 11:14 AM EDT [facility] Cotinine 98(H) <5 ng/mL 06/29/2025 11:14 AM EDT [facility] Blood Venous blood specimen / Unknown Venipuncture / Unknown 06/25/2025 7:08 AM EDT 06/25/2025 7:47 AM EDT Narrative [facility] - 06/29/2025 11:14 AM EDT Testing performed by LC-MS/MS at the [facility] Special Chemistry/Toxicology Laboratory. This test was developed and its performance characteristics determined by [facility]. This assay has not been cleared by the FDA. The laboratory is regulated under CLIA as qualified to perform high-complexity testing. This test is used for clinical purposes. us Donnie Jordan MD LAB BLOOD ORDERABLES Final Resul t Performing Organization Address [facility] Co de Phone Number [facility] [address] [place] [address] * (ABNORMAL) Protime-INR (06/25/2025 7:08 AM EDT) [facility] Prothrombin Time 17.0(H) 12.0 - 14.3 sec LAB COAGULATION METHOD 06/25/2025 8:07 AM EDT [facility] INR 1.3(H) 0.9 - 1.1 LAB COAGULATION METHOD 06/25/2025 8:07 AM EDT [facility] Blood Venous blood specimen / Unknown Venipuncture / Unknown 06/25/2025 7:08 AM EDT 06/25/2025 7:47 AM EDT [facility] - 06/25/2025 8:07 AM EDT OPTIMAL INR RANGES FOR PATIENT ON ORAL ANTICOAGULANT THERAPY Prevention of venous thromboembolism INR 2.0 to 3.0 In patients with heart disease: Atrial fibrillation INR 2.0 to 3.0 Valvular heart disease INR 2.0 to 3.0 Tissue heart valves INR 2.0 to 3.0 Mechanical prosthetic valves INR 2.5 to 3.5 Prevention of recurrent [place] INR 2.5 to 3.5 us Donnie Jordan MD LAB BLOOD ORDERABLES Final Resul t [facility] [address] [place] [address] * (ABNORMAL) Comprehensive metabolic panel (06/25/2025 7:08 AM EDT) [facility] Glucose, Plasma 50(LL) 74 - 99 mg/dL [...] [facility] [address] [place] [address] * (ABNORMAL) Hemogram (CBC) (06/25/2025 7:08 AM [...] [facility] [address] [place] [address] * Alpha fetoprotein, serum (06/25/2025 7:08 AM [...] ORDERABLES Final Resul t Performing Organization Address City/[facility]/ZIP Co de Phone Number [facility] [address] [place] [address] * ABO/Rh (06/25/2025 7:08 AM EDT) ABO/Rh O Positive 06/25/2025 7:04 AM EDT BLOOD BANK Blood Venous blood specimen / Unknown Venipuncture / Unknown 06/25/2025 7:08 AM EDT 06/25/2025 7:45 AM EDT us Donnie Jordan MD LAB BLOOD BANK TEST ORDERABLES F inal Result Performing Organization Address [facility] Co de Phone Number BLOOD BANK [address] [place] [address] documented in this encounter Visit Diagnoses Diagnosis [...] documented as of this encounter Care Teams Drum Puller Relationship Specialty Start Date End Date Jessica Man APRN [address] [place] [address] PCP - General 02/24/21 Mary Lim APRN [address] [place] [address] Referring Physician Gastroenterology 05/11/25 documented as of this encounter
--- NOTE | 2025-07-09 15:17 | HMH.EDGENADL ---
Discharge Plan Disposition Patient Disposition: Left Against Medical Advice Condition: Fair Prescriptions Prescriptions: New ciprofloxacin HCl 750 mg tablet 750 mg PO DAILY 7 Days Qty: 7 0RF No Action hydrochlorothiazide 25 mg tablet 25 mg PO DAILY 30 Days Qty: 30 Patient Comments: TAKE 1 TABLET ONCE A DAY duloxetine 60 mg capsule,delayed release(DR/EC) 60 mg PO DAILY 30 Days Qty: 60 Patient Comments: TAKE 1 CAPSULE 2 TIMES A DAY aspirin 81 mg tablet,delayed release (DR/EC) 81 mg PO DAILY 30 Days Qty: 30 Patient Comments: TAKE 1 TABLET ONCE A DAY fenofibrate nanocrystallized 145 mg tablet 145 mg PO DAILY 30 Days Qty: 30 Patient Comments: TAKE 1 TABLET ONCE A DAY omeprazole 40 mg capsule,delayed release(DR/EC) 40 mg PO DAILY Qty: 30 Patient Comments: TAKE 1 CAPSULE ONCE A DAY cyclobenzaprine 10 mg tablet 10 mg PO TID PRN (Reason: pain) Qty: 90 Patient Comments: TAKE 1 TABLET 3 TIMES A DAY Linzess 290 mcg capsule PO DAILY PRN Patient Comments: TAKE 1 CAPSULE 1 TIME EACH DAY (DME) pen needle, diabetic [BD Ultra-Fine Jazlyn Pen Needle] 32 gauge x 5/32 needle See Rx Instructions .ROUTE .MEDSUPPLY Qty: 1200 Patient Comments: USE TO INJECT INSULIN 4 TIMES EACH DAY Rx Instructions: As directed Januvia 50 mg tablet PO DAILY Patient Comments: TAKE 1 TABLET 1 TIME EACH DAY rosuvastatin 20 mg tablet PO DAILY Patient Comments: TAKE 1 TABLET 1 TIME EACH DAY hydroxyzine HCl 25 mg tablet PO ONCE Patient Comments: TAKE 1 TABLET 1 TIME EACH DAY (DME) OneTouch Ultra Test Strip See Rx Instructions .ROUTE .MEDSUPPLY Qty: 10 Patient Comments: USE TO CHECK BLOOD SUGAR 3 TIMES EACH DAY Rx Instructions: As directed lamotrigine 150 mg tablet PO DAILY Patient Comments: TAKE 1 TABLET 1 TIME EACH DAY IN THE MORNING (DME) Dexcom G7 Sensor Device See Rx Instructions .ROUTE .MEDSUPPLY Qty: 1 Patient Comments: USE TO MONITOR BLOOD SUGAR. REPLACE EVERY 10 DAYS Rx Instructions: As directed insulin lispro 100 unit/mL insulin pen SQ DAILY Patient Comments: INJECT 6 UNITS UNDER THE SKIN 3 TIMES EACH DAY BEFORE MEALS. FOR EACH 30 UNITS THAT BLOOD SUGAR IS OVER 150, INCREASE DOSE BY 1 UNIT. DO NOT INJECT MORE THAN 60 UNITS IN 1 DAY. gabapentin 800 mg tablet PO DAILY Patient Comments: TAKE 1 TABLET 4 TIMES EACH DAY insulin glargine [Lantus Solostar U-100 Insulin] 100 unit/mL (3 mL) insulin pen SQ DAILY Patient Comments: INJECT 34 UNITS UNDER THE SKIN 1 TIME EACH DAY IN THE EVENING PLUS TITRATION ADVISED. MAX DOSE OF 50 UNITS A DAY. (DME) Dexcom G7 Employment Trainer Misc See Rx Instructions .ROUTE .MEDSUPPLY Qty: 1 Patient Comments: USE TO MONITOR BLOOD SUGAR DIRECTED Rx Instructions: As directed (DME) Dexcom G6 Transmitter Device See Rx Instructions .ROUTE .MEDSUPPLY Qty: 1 Patient Comments: USU TO MEASURE BLOOD SUGAR DIRECTED. REPLACE AFTER 90 DAYS. Rx Instructions: As directed nicotine 21 mg/24 hr patch 24 hour 1 patch topical DAILY Patient Comments: APPLY 1 PATCH ONTO THE SKIN 1 TIME EACH DAY DIRECTED. REMOVE BEFORE APPLYING NEXT PATCH. ibuprofen 800 mg tablet PO PRN Patient Comments: TAKE 1 TABLET 3 TIMES EACH DAY WITH FOOD NEEDED FOR PAIN Clenpiq 10 mg-3.5 gram- 12 gram/175 mL solution 175 ml PO DAILY Qty: 350 0RF Rx Instructions: take first dose at 5-9PM evening before colonoscopy; 2nd dose the next day approximately 5 hrs before colonoscopy insulin glargine U-300 conc 300 UNIT/ML insulin pen 8 units SQ BID 30 Days Qty: 1 0RF glucagon HCl 1 MG recon soln 1 mg IJ NEEDED PRN (Reason: Blood Sugar - Low) Qty: 1 0RF Rx Instructions: Use as directed for hypoglycemic emergency. cefdinir 300 mg capsule 300 mg PO BID 5 Days Qty: 10 0RF Referrals Follow up/Referrals: Jessica Man [Primary Care Provider, Medical] - See instructions Activity Restrictions/Add. Instructions Additional Instructions/Restrictions: Please return to the emergency department as you have SBP which is a bacterial infection of the ascites in your abdomen. I have sent you with oral antibiotics to take which you can start tomorrow if you do not return to the emergency department however I strongly suggest you return tomorrow. Clinical Impressions Clinical Impression: SBP (spontaneous bacterial peritonitis) Instructions Patient Instructions: DI for Acute Abdominal Pain Print Language Print Language: Mosotho Discharge ED Provider: Kirsten Alegre Adult HPI General Chief complaint: Abdominal Pain Stated complaint: Fluid on abdomen Time Seen by Provider: 09/26/25 15:16 History of Present Illness HPI narrative: Patient 55-year-old female with past medical history of alpha 1 antitrypsin, on the liver transplant list who presents to the emergency department with on her abdomen. Patient recently lost 11. Placed in department for. Complicated until she can get scheduled in the clinic for weekly paracenteses. Patient reports abdominal pressure but that is any abdominal pain. Patient has had no increased change in her skin color. Patient without headache or chest pain or shortness of breath. Patient has not had any fevers. Patient has not had any headaches or vision changes. Patient has no other symptoms at this time. Related Data Home Medications ?Medication ?Instructions ?Recorded ?Confirmed aspirin 81 mg tablet,delayed 81 mg PO DAILY preventitive 30 01/19/19 02/25/24 release days #30 tabs duloxetine 60 mg capsule,delayed 60 mg PO DAILY Nausea & vomiting 01/19/19 02/25/24 release 30 days #60 caps fenofibrate nanocrystallized 145 145 mg PO DAILY Cholesterol 30 01/19/19 02/25/24 mg tablet days #30 tabs hydrochlorothiazide 25 mg tablet 25 mg PO DAILY Fluid 30 days #30 01/19/19 02/25/24 tabs cyclobenzaprine 10 mg tablet 10 mg PO TID PRN pain #90 tabs 05/27/19 02/25/24 omeprazole 40 mg capsule,delayed 40 mg PO DAILY stomach #30 caps 05/27/19 02/25/24 release blood sugar diagnostic (OneTouch #10 ea 02/17/24 02/25/24 Ultra Test strips) blood-glucose sensor (Dexcom G7 #1 ea 02/17/24 02/25/24 Sensor device) blood-glucose transmitter (Dexcom #1 ea 02/17/24 02/25/24 G6 Transmitter device) blood-glucose,spinner tender,cont #1 ea 02/17/24 02/25/24 (Dexcom G7 Employment Trainer) gabapentin 800 mg tablet mg PO DAILY 02/17/24 02/25/24 hydroxyzine HCl 25 mg tablet mg PO ONCE 02/17/24 02/25/24 ibuprofen 800 mg tablet mg PO PRN 02/17/24 02/25/24 insulin glargine 100 unit/mL (3 unit SQ DAILY 02/17/24 02/25/24 mL) subcutaneous pen (Lantus Solostar U-100 Insulin) insulin lispro 100 unit/mL SQ DAILY 02/17/24 02/25/24 subcutaneous pen lamotrigine 150 mg tablet mg PO DAILY 02/17/24 02/25/24 linaclotide 290 mcg capsule mcg PO DAILY PRN 02/17/24 02/25/24 (Linzess) nicotine 21 mg/24 hr daily 1 patch topical DAILY 02/17/24 02/25/24 transdermal patch pen needle, diabetic 32 gauge x #1,200 ea 02/17/24 02/25/24 (BD Ultra-Fine Jazlyn Pen Needle) rosuvastatin 20 mg tablet mg PO DAILY 02/17/24 02/25/24 sitagliptin phosphate 50 mg tablet mg PO DAILY 02/17/24 02/25/24 (Januvia) Previous Rx's ?Medication ?Instructions ?Recorded glucagon HCl 1 mg solution for 1 mg IJ NEEDED PRN Blood Sugar 10/28/21 injection - Low #1 kit insulin glargine U-300 conc 300 8 units SQ BID 30 days #1 pen 10/28/21 unit/mL (1.5 mL) subcutaneous pen needle sod picosulf 10 mg-magnes 3.5 175 ml PO DAILY 2 doses #350 mL 05/05/24 gram-citric 12 gram/175 mL oral solution (Clenpiq) cefdinir 300 mg capsule 300 mg PO BID 5 days #10 caps 02/12/25 ciprofloxacin HCl 750 mg tablet 750 mg PO DAILY 7 days #7 tabs 07/09/25 Allergies Allergy/AdvReac Type Severity Reaction Status Date / Time erythromycin base Allergy Mild Other Verified 05/25/25 15:18 empagliflozin (From Allergy Other Verified 05/25/25 15:18 Jardiance) varenicline (From Chantix) Allergy Unknown Verified 06/28/25 14:18 allergy reaction [facility] Disclaimer: The information contained in this section may have been updated after the patient was seen, as this information can be updated by other users. Medical History (Updated 07/09/25 @ 20:44 by Kirsten Alegre DO) PTSD (post-traumatic stress disorder) Anxiety Depression Diabetes mellitus Cirrhosis of liver without mention of alcohol Esophagus disorder Surgical History History of abdominal paracentesis History of unilateral salpingectomy History of cholecystectomy Family History Other Asthma Cancer Coronary artery disease Diabetes FHx: mental illness Heart attack Hypertension Kidney disease Stroke Social History Smoking Status: Current some day smoker alcohol intake: never substance use type: denies use current occupational status: other Travel in the last 8 weeks?: None caffeine: Yes Have you lived/traveled outside [place] in past 30 days?: No Contact w/someone who lives/traveled outside [place] past 30 days?: No Exposure to someone with infectious disease in past 14 days?: No Do you have a fever (greater than 100.4 F or 38 C)?: No Have you tested positive for COVID-19?: No Exposed to someone with COVID-19 in past 14 days?: No Do you have a sore throat?: No Do you have a cough?: No Do you have any weakness?: No Do you have any diarrhea?: No Are you experiencing any unusual bleeding?: No Do you have any muscle aches/pain?: No Do you have any abdominal pain?: No Are you experiencing loss of taste or smell?: No Other Medical History Have you received the Flu Vaccine for this season: No Have you received the Pneumonia Vaccine: Yes ROS Obtained: Yes All systems reviewed & no additional complaints except as documented and Yes Systems reviewed as appropriate & no additional complaints except as documented Physical Exam General General appearance: alert and in no apparent distress Head Head exam: atraumatic, normocephalic and normal inspection Eye Eye exam: Present normal appearance, PERRL and EOMI; Absent scleral icterus ENT ENT exam: Present normal exam and normal external ear exam Neck Neck exam: Present normal inspection and full ROM Chest Chest inspection: Present normal inspection and symmetric chest wall rise Respiratory Respiratory exam: Present normal lung sounds bilaterally; Absent respiratory distress or wheezes Cardiovascular Cardiovascular exam: Present regular rate, normal rhythm and normal heart sounds Abdominal Exam Abdominal exam: Present soft and distention (fluid wave present, no tenderness); Absent tenderness, guarding or rebound Extremities Exam Extremities exam: Present normal inspection and full ROM Back Exam Back exam: Present normal inspection and full ROM Neurological Exam Neurological exam: Present alert and oriented X3 Psychiatric Psychiatric exam: Present normal affect and normal mood Skin Skin exam: Present warm and dry Medical Decision Making Medical Records Screening: Per USPSTF and CDC recommendations, given the prevalence of disease in our region, it is our hospital?s policy to screen for HIV and viral Hepatitis for all patients aged 18 and over and those with ongoing risk factors. Helder Inquiry Pt receiving controlled substance: No Vital Signs: 07/09/25 15:07 07/09/25 16:30 07/09/25 17:00 Temperature 98.4 F Temperature Source Oral Pulse Rate 87 87 Pulse Rate [Left Radial] 89 Respiratory Rate 16 Blood Pressure 112/64 116/66 Blood Pressure [Right Arm] 137/72 Blood Pressure Mean Blood Pressure Mean [Right Arm] 93 Blood Pressure Source Blood Pressure Position 02 Sat by Pulse Oximetry 96 97 98 Oxygen Delivery Method Room Air 07/09/25 17:30 07/09/25 19:00 07/09/25 19:00 Temperature Temperature Source Pulse Rate 88 89 Pulse Rate [Left Radial] Respiratory Rate Blood Pressure 113/65 102/61 L Blood Pressure [Right Arm] Blood Pressure Mean 80 Blood Pressure Mean [Right Arm] Blood Pressure Source Blood Pressure Position 02 Sat by Pulse Oximetry 97 98 Oxygen Delivery Method 07/09/25 19:15 07/09/25 19:30 07/09/25 19:30 Temperature Temperature Source Pulse Rate 90 90 Pulse Rate [Left Radial] Respiratory Rate Blood Pressure 106/56 L Blood Pressure [Right Arm] Blood Pressure Mean 72 Blood Pressure Mean [Right Arm] Blood Pressure Source Blood Pressure Position 02 Sat by Pulse Oximetry 97 97 Oxygen Delivery Method 07/09/25 19:45 07/09/25 20:00 07/09/25 20:15 Temperature Temperature Source Pulse Rate 91 H 97 H Pulse Rate [Left Radial] Respiratory Rate Blood Pressure 98/61 L Blood Pressure [Right Arm] Blood Pressure Mean 72 Blood Pressure Mean [Right Arm] Blood Pressure Source Blood Pressure Position 02 Sat by Pulse Oximetry 97 96 Oxygen Delivery Method 07/09/25 20:30 07/09/25 20:30 07/09/25 21:03 Temperature 98.4 F Temperature Source Pulse Rate 91 H 91 H Pulse Rate [Left Radial] Respiratory Rate 16 Blood Pressure 116/66 116/66 Blood Pressure [Right Arm] Blood Pressure Mean 72 Blood Pressure Mean [Right Arm] Blood Pressure Source Automatic Cuff Blood Pressure Position Sitting 02 Sat by Pulse Oximetry 99 Oxygen Delivery Method Room Air Lab Data Lab results reviewed: Yes I reviewed the patient's lab results. Lab Results 07/09/25 15:08: WBC 10.1, RBC 3.25 L, Hgb 9.0 L, Hct 27.3 L, MCV 84.0, MCH 27.7, MCHC 33.0, RDW 17.3, Plt Count 122 L, MPV 9.4, Neut % (Auto) 81.0 H, Lymph % (Auto) 7.1 L, Stearns % (Auto) 7.0, Eos % (Auto) 3.9, Baso % (Auto) 0.5, Neut # (Auto) 8.2 H, Lymph # (Auto) 0.7, Stearns # (Auto) 0.7, Eos # (Auto) 0.4, Baso # (Auto) 0.1, PT 15.1 H, INR 1.39 H, APTT 30.8 H, Sodium 134 L, Potassium 4.0, Chloride 98, Carbon Dioxide 27, Anion Gap 13.0, BUN 50 H, Creatinine 2.10 H, Estimated Creat Clear 44, Estimated GFR 24 L, Est GFR ( Amer) 30 L, Glucose 104 H, Calcium 8.2 L, Total Bilirubin 4.4 H, AST 152 H, ALT 46, Alkaline Phosphatase 204 H, Total Protein 7.1, Albumin 3.3 L, Globulin 3.8 H, Albumin/Globulin Ratio 0.9 L 07/09/25 15:51: Fluid Source Peritoneal fluid, Fluid Volume 21, Fluid Appearance Cloudy, Fluid RBC (Auto) 3000, Fld Tot Nucleated Cell 2212, Fld Polynuclear WBCs % 81, Fld Mononuclear WBCs % 19 07/09/25 15:08 07/09/25 15:08 Orders (Tests/Meds): ED MEDICATIONS Discontinued Medications Generic Name Dose Route Start Last Admin Trade Name Freq PRN Reason Stop Dose Admin Ceftriaxone Sodium 2 gm/ 100 mls @ 200 mls/hr 07/09/25 19:15 07/09/25 20:44 Sodium Chloride IV 07/19/25 19:14 Infused Q24H BARNEY Infusion ORDERS Category Date Time Status Body Fluid: Cell Count w/ Diff Stat Lab 07/09/25 15:51 Completed CBC w/Auto Diff [Complete Blood Count Auto Diff] Stat Lab 07/09/25 15:08 Completed CMP [Comprehensive Metabolic Panel] Stat Lab 07/09/25 15:08 Completed PT INR [Prothrombin Time INR] Stat Lab 07/09/25 15:08 Completed PT/PTT Stat Lab 07/09/25 15:08 Completed Body Fluid Cult & Gram Stain Stat Micro 07/09/25 15:51 Results Medical Decision Narrative: Patient is a 55-year-old female with a past medical alpha 1 antitrypsin disease who requires frequent paracenteses who presents to the emergency department with abdominal distention and fluid on her abdomen requesting a paracentesis. On arrival, patient was hemodynamically stable with unremarkable vital signs. Differential includes but not limited to: Progression of alpha 1 antitrypsin disease, abdominal distention secondary to ascites, SBP, dehydration, amongst others. Bedside ultrasound was performed and large pocket was seen on the left side of the abdomen. Bedside paracentesis was performed with plan to remove 5L. Patient's labs were reviewed and interpreted by myself: CBC showed no leukocytosis, hemoglobin was stable. INR was mildly elevated at 1.39. CMP showed hyponatremia of 134. Mildly elevated creatinine at 2.1, baseline of 1.5. Bilirubin mildly elevated at 4.4 compared to baseline of 3.1. Patient's paracentesis fluid showed 3000 red blood cells, 2212 total nucleated cells with 81% white blood cells. When corrected for red blood cells, patient had evidence of SBP. Patient was given 2 g of Rocephin here in the emergency department. Given concern for SBP, I felt the patient warranted admission to the hospital. After further discussion with the patient, she stated that she had a dog at home and she could not stay in the hospital tonight but she would come back tomorrow. I discussed in length that I felt patient needed admission given my concern for her infection but patient stated that she could not stay. Patient was sent with ciprofloxacin at discharge and patient was strongly advised to return when able for further management. Patient was ultimately signed out AMA. Procedures Paracentesis Time Out Performed: Yes Local Anesthetic: lidocaine 1% Amount of anesthesia used (mL): 10 Fluid: cloudy Post Procedure Exam: awake, alert Patient Tolerated Procedure: well Complications: none Critical Care Critical Care Time Critical Care Time: No
[2025-07-09 15:59] LABS: Hematocrit 27.3 % (37.0-47.0); Hemoglobin 9.0 g/dL (12.2-16.2); Immature Granulocytes % 0.5 %; Mean Corpuscular HGB Conc 33.0 g/dL (31.8-35.4); Mean Corpuscular Hemoglobin 27.7 pg (27.0-31.2); Mean Corpuscular Volume 84.0 fl (81-99); Nucleated Red Blood Cells % 0 %; Platelet Count 122 K/mm3 (142-424); Red Blood Count 3.25 M/mm3 (4.20-5.40); Red Cell Distribution Width-SD 53.7 fL; White Blood Count 10.1 K/mm3 (4.8-10.8)
[2025-07-09 16:07] LABS: Activated Partial Thrombo Time 30.8 seconds (22.8-30.6); INR 1.39 (0.9-1.1); Prothrombin Time 15.1 seconds (10.1-12.5)
[2025-07-09 16:08] LABS: Albumin Level 3.3 g/dl (3.5-5.0); Chloride 98 mmol/L (98-107); Potassium 4.0 mmoL/L (3.5-5.1); Sodium 134 mmol/L (136-145)
[2025-07-09 16:10] LABS: Blood Urea Nitrogen 50 mg/dl (7-17); Creatinine Clearance Estimated 44 mL/min (50-200); Creatinine,Serum 2.10 mg/dl (0.52-1.04); Estimated Glomerular Filt Rate 24 ml/min (>60); GFR (African American) 30 ML/MIN (>60)
[2025-07-09 16:11] LABS: Alanine Aminotransferase 46 U/L (12-78); Albumin/Globulin Ratio 0.9 (1.1-1.8); Alkaline Phosphatase 204 U/L (38-126); Anion Gap 13.0 mEq/L (5-15); Aspartate Amino Transferase 152 U/L (14-36); Bilirubin,Total 4.4 mg/dl (0.2-1.3); Calcium 8.2 mg/dl (8.4-10.2); Carbon Dioxide 27 mmol/L (22.0-30.0); Globulin 3.8 g/dL (1.3-3.2); Glucose 104 mg/dl (74-100); Total Protein,Serum 7.1 g/dl (6.3-8.2)
[2025-07-09 16:31] LABS: Source, Body Fld. Peritoneal Fluid
[2025-07-09 16:32] LABS: Appearance,Body Fld. Cloudy
[2025-07-09 16:33] LABS: Volume,Body Fld. 21 mL
[2025-07-09 16:34] LABS: RBC,Body Fluid 3000 cells/uL (< 10 X 10^3)
[2025-07-09 16:35] LABS: TNC,Body Fluid 2212 cells/uL (< 1000)
--- NOTE | 2025-07-09 18:03 | PC.NURSE ---
3.5 liters of peritoneal fluid was removed from pt. She tolerated it well. notified
[2025-07-09 18:06] LABS: Mononuclear WBCs,Body Fluid 19 %; Polynuclear WBC,Body Fluid 81 %
[2025-07-12 17:10] LABS: Albumin, Body Fluid 0.4 g/dL (Not Estab.); Glucose, Body Fluid 75 mg/dL (.)
== END 2025-07-09 21:05 | disposition left against medical advice (07) ==
PROVIDERS: Emergency Provider Student in an Organized Health Care Education/Training Program; PCP Nurse Practitioner Family
DX: R18.8 Other ascites (principal); K65.2 Spontaneous bacterial peritonitis; E88.01 Alpha-1-antitrypsin deficiency; K74.69 Other cirrhosis of liver; E87.1 Hypo-osmolality and hyponatremia
CPT/HCPCS: 49083; 80053; 82042; 82945; 85025; 85610; 85730; 87070; 87205; 89051; 96365; 96366; 99285; J0696

== ENCOUNTER 2025-07-10 12:24 | Emergency (ER) | payer SELFPAY ==
--- OUTSIDE RECORDS SUMMARY | 2025-06-25 09:00 | XMS_ITS | Encounter Summary ---
Author Organization Healthcare Address [address] [place] [address] Care Team Providers Care Flower Buncher Or Picker Name Role Phone Jessica Man SUPERVISOR RICE MILLING Primary Care Provider [phone] Mary Lim SUPERVISOR RICE MILLING Unavailable [phone] Reason for Visit * Reason Comments Liver Txp ICE * Consultation (Routine) - Closed Specialty Diagnoses / Procedures Referred By Contac t Referred To Contact Transplant Diagnoses End-stage liver disease (CMS/HCC) Donnie Jordan MD [address] [place] [phone] Phone: tel: fax: [facility] [address] [facility] [address] [place] [address] Phone: tel: fax: Referral ID Status Reason Start Date Expiration Date V isits Requested Visits Authorized [id number] Closed Specialty Services Required 05/26/2025 11/25/2026 1 1 Encounter Details Date Type Department Care Team (Late st Contact Info) Description 06/25/2025 9:00 AM EDT Office Visit [facility] [address] [place] [address] Orlando Fierro MD [address] [place] [phone] End-stage liver disease (CMS/HCC) (Primary Dx); Decompensated [...] much Nearly every day 06/25/2025 7:29 AM Meerdith Lowe RN Feeling tired or having little [...] Luz and her , [place], to introduce flight crew time clerk support and establish rapport. I introduced the role of the flight crew time clerk on the interdisciplinary team and made them aware of the ongoing availability of flight crew time clerk support. Luz and [place] expressed receptivity to [...] which will allow her to return to [facility] for her paracentesis. 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 [...] Description 07/22/2025 3:40 PM EDT Office Visit [facility] Endocrinology [address] [place] [address] Silvia Lewis, SUPERVISOR RICE MILLING [address] [place] [address] 08/04/2025 8:30 AM EDT Clinical Support [facility] [address] [place] [address] 08/04/2025 9:00 AM EDT Appointment [facility] Radiology [address] [place] [address] 08/04/2025 9:45 AM EDT Appointment [facility] Radiology [address] [place] [address] 08/04/2025 10:00 AM EDT Clinical Support [facility] [address] [facility] [address] [place] [address] CH - CLINICAL NUTRITION [address] [place] [address] 08/04/2025 11:00 AM EDT Office Visit [facility] [address] [place] [address] Lily Dickinson MD [address] [place] [address] 08/04/2025 11:30 AM EDT Social Work [facility] [address] [place] [address] [place] [address] 08/04/2025 2:30 PM EDT Appointment [facility] Radiology [address] [place] [address] 08/04/2025 3:00 PM EDT Appointment [facility] Pulmonary Function Testing [address] [place] [address] 11/02/2025 11:00 AM EST Office Visit [facility] Medicine Specialties [address] [place] [address] Raman Chang, ZARINA [address] [place] [address] documented as of this encounter [...] documented as of this encounter Care Teams Flower Buncher Or Picker Relationship Specialty Start Date End Date Jessica Man APRN [address] [place] [address] PCP - General 02/24/21 Mary Lim APRN [address] [place] [address] Referring Physician Gastroenterology 05/11/25 documented as of this encounter
[2025-07-10 12:33] VITALS: BP 109/51; PULSE 96; RESP 19; TEMP 36.7; O2SAT 100; BMI 31.0
--- OUTSIDE RECORDS SUMMARY | 2025-07-10 12:39 | XMS_ITS | Clinical Summary ---
Author Organization Healthcare Address [address] 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 ([employer] [place]) deviceIndicatio ns:Type 2 diabetes mellitus with hyperglycemia, [...] 22 025 Discontin ued(Cost of medicatio n) furosemide (Lasix) 40 MG tablet Take 2 [...] Care Team Description 07/02/2025 Travel 07/01/2025 Telephone [facility] [address] [phone] Shruti Scott 06/30/2025 Telephone [facility] [address] [phone] Shruti Scott 06/28/2025 Telephone [facility] [address] [phone] Jaci Duenas, RN 06/28/2025 Orders Only [facility] [place] [address] [phone] Jaci Duenas, RN 06/25/2025 9:00 AM EDT Office Visit [facility] [address] [phone] Orlando Fierro MD End-stage liver disease (CMS/HCC) (Primary Dx); Decompensated hepatic cirrhosis (CMS/HCC); Other ascites; Metabolic dysfunction-associate d steatotic liver disease (MASLD); Alpha 1-antitrypsin PiMS phenotype; Tobacco abuse 06/25/2025 Travel 06/24/2025 Travel 06/23/2025 Travel 06/23/2025 Telephone [facility] [address] [phone] Edda Méndez 06/23/2025 Telephone [facility] [place] [address] [phone] Edda Méndze Appointment (Confirmation and reminders) 06/16/2025 Telephone [facility] [address] [place] [phone] [facility], Physician, 06/09/2025 Telephone [facility] [address] [place] [address] Silvia Lewis APRN Prior-authorization/i nsurance Verification 06/04/2025 Refill [facility] [address] [place] [address] Jessica Aranda 06/04/2025 Telephone [facility] [address] [place] [address] Silvia Lewis APRN 06/02/2025 Telephone [facility] [address] [place] [address] Silvia Lewis, NGUYỄN Prior-authorization/i nsurance Verification 06/01/2025 Telephone [facility] [address] [address] Edda Méndez 05/26/2025 Telephone [facility] [address] [phone] Edda Méndez Appointment (Scheduling) 05/25/2025 Orders Only External Location [address] [place] [address] Provider, External 05/24/2025 Telephone [facility] [address] [phone] Edda Méndez 05/17/2025 Telephone [facility] [address] [phone] Edda Méndez Referral - Liver Txp 05/11/2025 Telephone [facility] [address] [place] [phone] Edda Méndez Referral - Liver Txp from [...] Description 07/22/2025 3:40 PM EDT Office Visit [facility] [address] [place] [address] Silvia Lewis, ALUMINUM MOLDER [address] [place] [address] 08/04/2025 8:30 AM EDT Clinical Support [facility] [address] [place] [address] 08/04/2025 9:00 AM EDT Appointment [facility] Radiology [address] [place] [address] 08/04/2025 9:45 AM EDT Appointment [facility] [address], [address] [place] [address] 08/04/2025 10:00 AM EDT Clinical Support [facility] [address] [facility] [address] [place] [address] CH - CLINICAL NUTRITION [address] [place] [address] 08/04/2025 11:00 AM EDT Office Visit [facility] [address] [place] [address] Lily Dickinson MD [address] [place] [address] 08/04/2025 11:30 AM EDT Social Work [facility] [address] [place] [phone] [place] [address] 08/04/2025 2:30 PM EDT Appointment [facility] [address] [place] [phone] 08/04/2025 3:00 PM EDT Appointment [facility] Pulmonary Function Testing [address] [place] [address] 11/02/2025 11:00 AM EST Office Visit [facility] [address] [place] [address] Raman Chang PA [address] [place] [phone] Health Maintenance Due Date Last Done Comments [...] 02/16/2020 UKY-Zoster Vaccines (1 of 2) 02/16/2020 [id number] Vaccine (2 - 2024- season) 2025 09/23/2023 [...] Urine Negative Negative 06/25/2025 11:46 AM EDT [facility] Urine Urine specimen obtained by clean catch procedure / Unknown Non-blood Collection / Unknown 06/25/2025 7:32 AM EDT 06/25/2025 8:34 AM EDT Narrative [facility] - 06/25/2025 11:46 AM EDT The correlation between urine and serum ethanol concentration is highly variable. Test performed by Gas Chromatography at the [facility]. This test was developed and its performance characteristics determined by [facility]. It has not been cleared or approved by the FDA.The laboratory is regulated under CLIA as qualified to perform high-complexity testing. This test is used for clinical purposes only. us Donnie Jordan MD LAB URINE ORDERABLES Final Resul t [facility] [address] [place] [address] * (ABNORMAL) Comprehensive Urine Drug Screening, Qualitative Assay, >= 27 Drug Classes (57:32 AM EDT) Acetaminophen Negative Negative 06/30/2025 11:34 AM EDT [facility] Alprazolam Negative Negative 06/30/2025 11:34 AM EDT [facility] Amantadine Negative Negative 06/30/2025 11:34 AM EDT [facility] Amitriptyline Negative Negative 06/30/2025 11:34 AM EDT [facility] Amphetamine Negative Negative 06/30/2025 11:34 AM EDT [facility] Atenolol Negative Negative 06/30/2025 11:34 AM EDT [facility] Benzoylecgonine Negative Negative 11:34 AM EDT [facility] Bisoprolol Negative Negative 06/30/2025 11:34 AM EDT [facility] Bupropion Negative Negative 06/30/2025 11:34 AM EDT [facility] Butalbital Negative Negative 06/30/2025 11:34 AM EDT [facility] Carbamazepine Negative Negative 06/30/2025 11:34 AM EDT [facility] Carisoprodol Negative Negative 06/30/2025 11:34 AM EDT [facility] Chlorpheniramine Negative Negative 06/30/20 11:34 AM EDT [facility] Citalopram Negative Negative 06/30/2025 11:34 AM EDT [facility] Clindamycin Negative Negative 06/30/2025 11:34 AM EDT [facility] Clonidine Negative Negative 06/30/2025 11:34 AM EDT [facility] Clopidogrel / Ticlopidine Negative Negative 06/30/2025 11:34 AM EDT [facility] Cocaethylene Negative Negative 06/30/2025 11:34 AM EDT [facility] Cocaine Negative Negative 06/30/2025 11:34 AM EDT [facility] Codeine Negative Negative 06/30/2025 11:34 AM EDT [facility] Cyclobenzaprine Negative Negative 11:34 AM EDT [facility] Desvenlafaxine Negative Negative 06/30/2025 11:34 AM EDT [facility] Dextromethorphan Negative Negative 06/30/20 11:34 AM EDT [facility] Diazepam Negative Negative 06/30/2025 11:34 AM EDT [facility] Diltiazem Negative Negative 06/30/2025 11:34 AM EDT [facility] Diphenhydramine Negative Negative 11:34 AM EDT [facility] Doxepine Negative Negative 06/30/2025 11:34 AM EDT [facility] Doxylamine Negative Negative 06/30/2025 11:34 AM EDT [facility] EDDP-Methadone metabolite Negative Negative 06/30/2025 11:34 AM EDT [facility] Fentanyl Negative Negative 06/30/2025 11:34 AM EDT [facility] Fluconazole Negative Negative 06/30/2025 11:34 AM EDT [facility] Fluoxetine Negative Negative 06/30/2025 11:34 AM EDT [facility] Guaifenesin Negative Negative 06/30/2025 11:34 AM EDT [facility] Haloperidol Negative Negative 06/30/2025 11:34 AM EDT [facility] Heroin/6-TERRY Negative Negative 06/30/2025 11:34 AM EDT [facility] Hydrocodone Negative Negative 06/30/2025 11:34 AM EDT [facility] Hydroxyzine / Cetirizine metabolite Positive(A) Negative 06/30/2025 11:34 AM EDT [facility] Ibuprofen Negative Negative 06/30/2025 11:34 AM EDT [facility] Imipramine Negative Negative 06/30/2025 11:34 AM EDT [facility] Ketamine Negative Negative 06/30/2025 11:34 AM EDT [facility] Labetolol Negative Negative 06/30/2025 11:34 AM EDT [facility] Lamotrigine Negative Negative 06/30/2025 11:34 AM EDT [facility] Levetiracetam Negative Negative 06/30/2025 11:34 AM EDT [facility] Lidocaine Positive(A) Negative 06/30/2025 11:34 AM EDT [facility] MDA Negative Negative 06/30/2025 11:34 AM EDT [facility] MDMA Negative Negative 06/30/2025 11:34 AM EDT [facility] Memantine Negative Negative 06/30/2025 11:34 AM EDT [facility] Meperidine Negative Negative 06/30/2025 11:34 AM EDT [facility] Meprobamate Negative Negative 06/30/2025 11:34 AM EDT [facility] Metaxalone Negative Negative 06/30/2025 11:34 AM EDT [facility] Methamphetamine Negative Negative 11:34 AM EDT [facility] Methocarbamol Negative Negative 06/30/2025 11:34 AM EDT [facility] Methylecgonine Negative Negative 06/30/2025 11:34 AM EDT [facility] Metoclopramide Negative Negative 06/30/2025 11:34 AM EDT [facility] Metoprolol Negative Negative 06/30/2025 11:34 AM EDT [facility] Metronidazole Negative Negative 06/30/2025 11:34 AM EDT [facility] Midazolam Negative Negative 06/30/2025 11:34 AM EDT [facility] Midazolam Metabolite Negative Negative 06/30/2025 11:34 AM EDT [facility] Mirtazapine Negative Negative 06/30/2025 11:34 AM EDT [facility] Misc Test Result Negative Negative 06/30/20 11:34 AM EDT [facility] Naproxen Negative Negative 06/30/2025 11:34 AM EDT [facility] Nefazodone Negative Negative 06/30/2025 11:34 AM EDT [facility] Norfentanyl Negative Negative 06/30/2025 11:34 AM EDT [facility] Nortriptyline Negative Negative 06/30/2025 11:34 AM EDT [facility] Ordanstron Negative Negative 06/30/2025 11:34 AM EDT [facility] Oxcarbazepine Negative Negative 06/30/2025 11:34 AM EDT [facility] Oxycodone Negative Negative 06/30/2025 11:34 AM EDT [facility] Paroxethine Negative Negative 06/30/2025 11:34 AM EDT [facility] Phenobarbital Negative Negative 06/30/2025 11:34 AM EDT [facility] Phentermine Negative Negative 06/30/2025 11:34 AM EDT [facility] Phenytoin Negative Negative 06/30/2025 11:34 AM EDT [facility] Primidone Negative Negative 06/30/2025 11:34 AM EDT [facility] Promethazine Negative Negative 06/30/2025 11:34 AM EDT [facility] Propofol Negative Negative 06/30/2025 11:34 AM EDT [facility] Propranolol Negative Negative 06/30/2025 11:34 AM EDT [facility] Quetiapine Negative Negative 06/30/2025 11:34 AM EDT [facility] Quinine Negative Negative 06/30/2025 11:34 AM EDT [facility] Rantidine Negative Negative 06/30/2025 11:34 AM EDT [facility] Sertraline Negative Negative 06/30/2025 11:34 AM EDT [facility] Spironolactone Negative Negative 06/30/2025 11:34 AM EDT [facility] Tizanidine Negative Negative 06/30/2025 11:34 AM EDT [facility] Topiramate Negative Negative 06/30/2025 11:34 AM EDT [facility] Tramadol Negative Negative 06/30/2025 11:34 AM EDT [facility] Trazadone/ Trazadone metabolite Negative Negative 06/30/2025 11:34 AM EDT [facility] Trimethoprim Negative Negative 06/30/2025 11:34 AM EDT [facility] Valproic Acid Negative Negative 06/30/2025 11:34 AM EDT [facility] Venlafaxine Negative Negative 06/30/2025 11:34 AM EDT [facility] Verapamil Negative Negative 06/30/2025 11:34 AM EDT [facility] Zolpidem Negative Negative 06/30/2025 11:34 AM EDT [facility] Xylazine Negative Negative 06/30/2025 11:34 AM EDT [facility] Urine Urine specimen obtained by clean catch procedure / Unknown Non-blood Collection / Unknown 06/25/2025 7:32 AM EDT 06/25/2025 8:34 AM EDT Donnie Jordan MD LAB URINE ORDERABLES Final Resul t Performing Organization Address [facility] de Phone Number [facility] [address] [place] [address] * HEPATITIS B SURFACE ANTIBODY, QUANTITATIVE (06/25/2025 7:08 AM EDT) Hepatitis B Surface Antibody, Quantitative <8.00 NonReactiv e: <8, Grayzone: 8 - <12, Reactive: >= 12 mIU/mL 06/25/2025 9:15 AM EDT [facility] Comment: Nonreactive. Individual is considered not immune to HBV infection. Blood Venous blood specimen / Unknown Venipuncture / Unknown 06/25/2025 7:08 AM EDT 06/25/2025 7:47 AM EDT Donnie Jordan MD LAB BLOOD ORDERABLES Final Resul t Performing Organization Address [facility] Phone Number [facility] [address] [place] [address] * Alpha fetoprotein, serum (06/25/2025 7:08 AM EDT) Alpha Fetoprotein, Serum <2.3 <10.0 ng/mL 06/25/2025 8:23 AM EDT [facility] Blood Venous blood specimen / Unknown Venipuncture / Unknown 06/25/2025 7:08 AM EDT 06/25/2025 7:47 AM EDT Narrative [facility] - 06/25/2025 8:23 AM EDT Performed by José Manuel electrochemiluminescent immunoassay which is traceable to the 1st AFP IRP WHO Reference standard 72/255. Results obtained with different test methods or kits cannot be used interchangeably. us Donnie Jordan MD LAB BLOOD ORDERABLES Final Resul t Performing Organization Address [facility] Co de Phone Number [facility] [address] [place] [address] * (ABNORMAL) Hepatitis A Antibody IgG (06/25/2025 7:08 AM EDT) Hepatitis A Antibody IgG Positive(A ) Negative 06/25/2025 9:15 AM EDT [facility] Blood Venous blood specimen / Unknown Venipuncture / Unknown 06/25/2025 7:08 AM EDT 06/25/2025 7:47 AM EDT us Donnie Jordan MD LAB BLOOD ORDERABLES Final Resul t Performing Organization Address [facility] Co de Phone Number [facility] [address] [place] [address] * Hepatitis C Antibody (06/25/2025 7:08 AM EDT) Hepatitis C Antibody Negative Negative 06/25/2025 8:31 AM EDT [facility] Blood Venous blood specimen / Unknown Venipuncture / Unknown 06/25/2025 7:08 AM EDT 06/25/2025 7:47 AM EDT us Donnie Jordan MD LAB BLOOD ORDERABLES Final Resul t Performing Organization Address [facility] Co de Phone Number [facility] [address] [place] [address] * (ABNORMAL) Nicotine Cotinine Metabolite (06/25/2025 7:08 AM EDT) NICOTINE <5 <5 ng/mL 06/29/2025 11:14 AM EDT [facility] Cotinine 98(H) <5 ng/mL 06/29/2025 11:14 AM EDT [facility] Blood Venous blood specimen / Unknown Venipuncture / Unknown 06/25/2025 7:08 AM EDT 06/25/2025 7:47 AM EDT Narrative [facility] - 06/29/2025 11:14 AM EDT Testing performed by LC-MS/MS at the [facility]Toxicology [facility]. This test was developed and its performance characteristics determined by [facility]. This assay has not been cleared by the FDA. The laboratory is regulated under CLIA as qualified to perform high-complexity testing. This test is used for clinical purposes. Donnie Jordan MD LAB BLOOD ORDERABLES Final Resul t Performing Organization Address [facility] Co de Phone Number [facility] [address] [place] [address] * ABO/Rh (06/25/2025 7:08 AM EDT) ABO/Rh O Positive 06/25/2025 7:04 AM EDT [facility] Blood Venous blood specimen / Unknown Venipuncture / Unknown 06/25/2025 7:08 AM EDT 06/25/2025 7:45 AM EDT Donnie Jordan MD LAB BLOOD BANK TEST ORDERABLES F inal Result Performing Organization Address [facility] de Phone Number BLOOD BANK [address] [place] [address] * Hepatitis B Surface Antigen (06/25/2025 7:08 AM EDT) Hepatitis B Surf Antigen Negative Negative 06/25/2025 9:[address] [facility] Blood Venous blood specimen / Unknown Venipuncture / Unknown 06/25/2025 7:08 AM EDT 06/25/2025 7:47 AM EDT Donnie Jordan MD LAB BLOOD ORDERABLES Final Resul t Performing Organization Address [facility] Co de Phone Number [facility] [address] [place] [address] * (ABNORMAL) Protime-INR (06/25/2025 7:08 AM EDT) Prothrombin Time 17.0(H) 12.0 - 14.3 sec LAB COAGULATION METHOD 06/25/2025 8:07 AM EDT [facility] INR 1.3(H) 0.9 - 1.1 LAB COAGULATION METHOD 06/25/2025 8:07 AM EDT [facility] Blood Venous blood specimen / Unknown Venipuncture / Unknown 06/25/2025 7:08 AM EDT 06/25/2025 7:47 AM EDT Narrative [facility] - 06/25/2025 8:07 AM EDT OPTIMAL INR RANGES FOR PATIENT ON ORAL ANTICOAGULANT THERAPY Prevention of venous thromboembolism INR 2.0 to 3.0 In patients with heart disease: Atrial fibrillation INR 2.0 to 3.0 Valvular heart disease INR 2.0 to 3.0 Tissue heart valves INR 2.0 to 3.0 Mechanical prosthetic valves INR 2.5 to 3.5 Prevention of recurrent AL INR 2.5 to 3.5 us Donnie Jordan MD LAB BLOOD ORDERABLES Final Resul t [facility] [address] [place] [address] * (ABNORMAL) Hemogram (CBC) (06/25/2025 7:08 AM EDT) WBC Count 10.55(H) 3.70 - 10.30 10*3/uL LAB HEMATOLOGY METHOD 06/25/2025 8:04 AM EDT [facility] RBC Count 3.34(L) 3.90 - 5.20 10*6/uL LAB HEMATOLOGY METHOD 06/25/2025 8:04 AM EDT [facility] HGB 9.2(L) 11.2 - 15.7 g/dL LAB HEMATOLOGY METHOD 06/25/2025 8:04 AM EDT [facility] HCT 27.9(L) 34.0 - 45.0 % LAB HEMATOLOGY METHOD 06/25/2025 8:04 AM EDT [facility] Platelet Count 173 155 - 369 10*3/uL LAB HEMATOLOGY METHOD 06/25/2025 8:04 AM EDT [facility] MCV 84 79 - 98 fL LAB HEMATOLOGY METHOD 06/25/2025 8:04 AM EDT [facility] MCH 27.5 26.0 - 32.0 pg LAB HEMATOLOGY METHOD 06/25/2025 8:04 AM EDT [facility] MCHC 33.0 30.7 - 35.5 g/dL LAB HEMATOLOGY METHOD 06/25/2025 8:04 AM EDT [facility] RDW 17.8(H) 11.5 - 14.5 % LAB HEMATOLOGY METHOD 06/25/2025 8:04 AM EDT [facility] MPV 9.6 8.8 - 12.5 fL LAB HEMATOLOGY METHOD 06/25/2025 8:04 AM EDT [facility] nRBC 0.0 <=0.0 per 100 WBCs LAB HEMATOLOGY METHOD 06/25/2025 8:04 AM EDT [facility] Blood Venous blood specimen / Unknown Venipuncture / Unknown 06/25/2025 7:08 AM EDT 06/25/2025 7:54 AM EDT us Donnie Jordan MD LAB BLOOD ORDERABLES Final Resul t [facility] [address] [place] [address] * (ABNORMAL) Comprehensive metabolic panel (06/25/2025 7:08 AM EDT) Glucose, Plasma 50(LL) 74 - 99 mg/dL 06/25/2025 8:22 AM EDT [facility] BUN, Plasma 33(H) 7 - 21 mg/dL 06/25/2025 8:22 AM EDT [facility] Creatinine, Plasma 1.30(H) 0.60 - 1.10 mg/dL 06/25/2025 8:22 AM EDT [facility] BUN/Creatinine Ratio 25 06/25/2025 8:22 AM EDT [facility] Sodium, Plasma 134(L) 136 - 145 mmol/L 06/25/2025 8:22 AM EDT [facility] Potassium, Plasma 3.6 3.6 - 4.9 mmol/L 06/25/2025 8:22 AM EDT [facility] Chloride, Plasma 101 97 - 107 mmol/L 06/25/2025 8:22 AM EDT [facility] CO2, Plasma 22 22 - 29 mmol/L 06/25/2025 8:22 AM EDT [facility] Anion Gap 11 6 - 16 mmol/L 06/25/2025 8:22 AM EDT [facility] Total Calcium, Plasma 8.8(L) 8.9 - 10.2 mg/dL 06/25/2025 8:22 AM EDT [facility] Total Protein 6.8 6.3 - 7.9 g/dL 06/25/2025 8:22 AM EDT [facility] Albumin, Plasma 3.2(L) 3.5 - 5.2 g/dL 06/25/2025 8:22 AM EDT [facility] AST, Plasma 76(H) 10 - 35 U/L 06/25/2025 8:22 AM EDT [facility] ALT, Plasma 30 10 - 35 U/L 06/25/2025 8:22 AM EDT [facility] Alkaline Phosphatase, Plasma 158(H) 35 - 104 U/L 06/25/2025 8:22 AM EDT [facility] Total Bilirubin, Plasma 2.1(H) 0.2 - 1.1 mg/dL 06/25/2025 8:22 AM EDT [facility] eGFRcr 48.7 mL/min/1.7 3m*2 06/25/2025 8:22 AM EDT [facility] Comment:Reported eGFRcr in m L/min/1.73m2 is based the CKD-EPI 2020 equation that does not use a race coefficient. Blood Venous blood specimen / Unknown Venipuncture / Unknown 06/25/2025 7:08 AM EDT 06/25/2025 7:47 AM EDT us Donnie Jordan MD LAB BLOOD ORDERABLES Final Resul t [facility] [address] [place] [address] * XR OUTSIDE IMAGES (05/25/2025 3:57 PM EDT) Anatomical Region Laterality Modality Radiographic Gauri ging 05/25/2025 3:57 PM EDT External Provider IMG XR PROCEDURES Final Result * POCT glycosylated hemoglobin (Hb A1C) (04/06/2025 2:04 PM EDT) Pathologist [facility] POCT Hemoglobin A1C 5.1 <5.7% Non-Diabe tic % [facility] Kit Lot Number [id number] [facility] Kit Expiration Date 01/11/2027 [facility] Blood Venous blood specimen / Unknown 04/06/2025 2:04 PM EDT Silvia Lewis ALUMINUM MOLDER POINT OF CARE TEST ENTER/ED IT ORDERABLES Final Result [facility] [address] [place] [address] * HIV 1 & 2 Antibody/Antigen Screen (06/01/2014 4:27 PM EDT) Pathologist [facility] HIV 1 Result NONREACTIVE Screening for HIV 1 and 2 antibodies is NONREACTIVE. No confirmatory testing is required. SUNQUEST 06/01/2014 4:27 PM EDT 06/01/2014 5:40 PM EDT Historical Provider LAB BLOOD ORDERABLES Final R esult SUNQUEST from Last 3 Months or Most Recently Relevant to Health Maintenance Insurance [employer] Teams Ticker Maintainer Relationship Specialty Start Date End Date Jessica Man APRN [address] [place] [address] PCP - General 02/24/21 Mary Lim APRN [address] [place] [id number] Referring Physician Gastroenterology 05/11/25
--- OUTSIDE RECORDS SUMMARY | 2025-07-10 12:39 | XMS_ITS | Clinical Summary ---
[facility] Address [address] [place] [address] Care Team Providers Care Folder Machine Name Role Phone Jessica Man APRN Primary Care Provider [phone] Allergies Active Allergy Reactions Criticality Noted Date [...] for 1 day. 4 Active Continuous Glucose Site Damage Prevention Technician (Dexcom G7 Site Damage Prevention Technician) device USE TO MONITOR BLOOD SUGAR DIRECTED 4 Active Continuous Glucose Sensor (Dexcom G7 Sensor) [facility] USE TO MONITOR BLOOD SUGAR. REPLACE EVERY 10 DAYS 4 Active Continuous Glucose Transmitter (Dexcom G6 Transmitter) [facility] [place]U TO MEASURE BLOOD SUGAR DIRECTED. REPLACE [...] Needle Jazlyn U/F 32G X 4 MM [facility] USE TO INJECT INSULIN 4 TIMES EACH [...] false negative. Will order in lab PSG. Madeline 17. Preop cardiovascular exam 03/17/2024 Encounter for [...] Completed 06/01/2014 Insurance [employer] Care Teams Folder Machine Relationship Specialty Start Date End Date Jessica Man APRN [address] [place] [address] PCP - General Nurse Practitioner 03/17/24
--- OUTSIDE RECORDS SUMMARY | 2025-07-10 12:39 | XMS_ITS | Encounter Summary ---
Author Organization [facility] Address [address] [place] [address] Care Team Providers Care Reinforcing Bar Setter Name Role Phone Jessica Man CARRIER WASHER Primary Care Provider [phone] Mary Lim CARRIER WASHER Unavailable [phone] Reason for Visit * Reason Comments Referral - Liver Txp Encounter Details Date Type Department Care Team (Late st Contact Info) Description 05/17/2025 Telephone [facility] [address] [place] [address] Edda Méndez [place] [phone] Referral - Liver Txp Social History Tobacco [...] Description 07/22/2025 3:40 PM EDT Office Visit [facility] Endocrinology [address] [place] [address] Silvia Lewis, CARRIER WASHER [address] [place] [address] 08/04/2025 8:30 AM EDT Clinical Support [facility] [address] [place] [address] 08/04/2025 9:00 AM EDT Appointment [facility] Radiology [address] [place] [address] 08/04/2025 9:45 AM EDT Appointment [facility] Radiology [address], 1st [place] [address] 08/04/2025 10:00 AM EDT Clinical Support [facility] [address] [place] [address] CH - CLINICAL NUTRITION [address] [place] [address] 08/04/2025 11:00 AM EDT Office Visit [facility] [address] [place] [address] Lily Dickinson MD [address] [place] [address] 08/04/2025 11:30 AM EDT Social Work [facility] [address] [place] [address] Lav[address] Elaine [place], [place] [phone] 08/04/2025 2:30 PM EDT Appointment [facility] Radiology [address] [place] [address] 08/04/2025 3:00 PM EDT Appointment [facility] Pulmonary Function Testing [address] [place] [address] 11/02/2025 11:00 AM EST Office Visit [facility] Medicine Specialties [address] 2nd [place] [address] Raman Chang PA [address] [place] [address] documented as of this encounter [...] documented as of this encounter Care Teams Reinforcing Bar Setter Relationship Specialty Start Date End Date Jessica Man, CARRIER WASHER [address] [place] [address] [id number] PCP - General 02/24/21 Mary Lim CARRIER WASHER [address] [place] [address] Referring Physician Gastroenterology 05/11/25 documented as of this encounter
--- OUTSIDE RECORDS SUMMARY | 2025-07-10 12:39 | XMS_ITS | Encounter Summary ---
Author Organization Healthcare Address [address] [place] [address] Care Team Providers Care Equipment Hire Manager Name Role Phone Jessica Man DIRECTOR OF SLEEP Primary Care Provider [phone] Mary Lim DIRECTOR OF SLEEP Unavailable Encounter Details Date Type Department Care Team (Late st Contact Info) Description 06/30/2025 Telephone [facility]plant [facility] [address] [facility] [address] [place] [address] Shruti Scott Social History Tobacco Use Types [...] added toher rtc for Liver Evaluation at [phone]. documented in this encounter Plan of Treatment Upcoming Encounters Date Type Department Care Team (Late st Contact Info) Description 07/22/2025 3:40 PM EDT Office Visit [facility] Endocrinology [address] [place] [address] Silvia Lewis, DIRECTOR OF SLEEP [address] [place] [address] 08/04/2025 8:30 AM EDT Clinical Support [facility] Transplant [place] [address] [facility] [address] [place] [address] 08/04/2025 9:00 AM EDT Appointment [facility] Radiology [address] [place] [address] 08/04/2025 9:45 AM EDT Appointment [facility] Radiology [address], 1st [place] [address] 08/04/2025 10:00 AM EDT Clinical Support [facility] [place] [address] [facility] [address] [place] [address] CH - CLINICAL NUTRITION [address] [place] [address] 08/04/2025 11:00 AM EDT Office Visit [facility] [address] [place] [address] Lily Dickinson MD [address] [place] [address] 08/04/2025 11:30 AM EDT Social Work [facility] [address] [place] [address] Elaine Banerjee [place], [place] [phone] 08/04/2025 2:30 PM EDT Appointment [facility] [address] [place] [address] 08/04/2025 3:00 PM EDT Appointment [facility] Pulmonary Function Testing [address] [place] [address] 11/02/2025 11:00 AM EST Office Visit [facility] Medicine Specialties [address], 2nd [place] [address] Raman Chang PA [address] [facility] [address] [place] [address] documented as of this encounter [...] documented as of this encounter Care Teams Equipment Hire Manager Relationship Specialty Start Date End Date Jessica Man APRN [address] [place] [address] PCP - General 02/24/21 Mary Lim APRN [address] [place] [address] Referring Physician Gastroenterology 05/11/25 documented as of this encounter
--- OUTSIDE RECORDS SUMMARY | 2025-07-10 12:39 | XMS_ITS | Encounter Summary ---
Author Organization Healthcare Address [address] [place] [address] Care Team Providers Care Sales Correspondent Name Role Phone Donovan Jessica Khoury HUMANITIES DIVISION CHAIR Primary Care Provider [phone] Mary Lim HUMANITIES DIVISION CHAIR Unavailable [phone] Encounter Details Date Type Department Care Team [...] Description 07/22/2025 3:40 PM EDT Office Visit [facility] Endocrinology [address] [place] [address] Silvia Lewis, HUMANITIES DIVISION CHAIR [address] [facility] [address] [place] [address] 08/04/2025 8:30 AM EDT Clinical Support [facility] Transplant Center [address] [place] [address] 08/04/2025 9:00 AM EDT Appointment [facility] Radiology [address] [place] [address] 08/04/2025 9:45 AM EDT Appointment [facility] Radiology [address], 1st [place] [address] 08/04/2025 10:00 AM EDT Clinical Support [facility] Transplant [place] [address] [place] [address] CH - CLINICAL NUTRITION [address] [place] [address] 08/04/2025 11:00 AM EDT Office Visit [facility] Transplant [place] [address] [place] [address] Lily Dickinson MD [address] [facility] [address] [place] [address] 08/04/2025 11:30 AM EDT Social Work [facility] Transplant [place] [address] [facility] [address] [place] [address] [place] [address] 08/04/2025 2:30 PM EDT Appointment [facility] [address] [place] [address] 08/04/2025 3:00 PM EDT Appointment [facility] Pulmonary Function Testing 800 [place] [address] 11/02/2025 11:00 AM EST Office Visit [facility] Medicine Specialties [address], 2nd [place] [address] Raman Chang, PA [address] [place] [address] documented as of this encounter [...] documented as of this encounter Care Teams Sales Correspondent Relationship Specialty Start Date End Date Jessica Man APRN [address] [place] [address] PCP - General 02/24/21 Mary Lim APRN [address] [place] [address] Referring Physician Gastroenterology 05/11/25 documented as of this encounter
--- OUTSIDE RECORDS SUMMARY | 2025-07-10 12:39 | XMS_ITS | Encounter Summary ---
Author Organization [facility] Address [address] [place] [address] Care Team Providers Care Cigar Making Supervisor Name Role Phone Jessica Man APRN Primary Care Provider [phone] Mary Lim DOUBLE ENDING MACHINE OPERATOR Unavailable [phone] Reason for Referral * Transplant (Routine) - Authorized Specialty Diagnoses / Procedures Referred By Contshiloh t Referred To Contact Transplant Diagnoses End-stage liver disease (CMS/HCC) Mary Lim, NGUYỄN [address] [place] [address] Phone: tel: fax: [facility] [address] [address] Phone: tel: fax: Referral ID Status Reason Start Date Expiration Date Visits Requested Visits Authorized [id number] Authorized Specialty Services Required 05/11/2025 12/09/2025 999 [id number] Reason for Visit * Reason Comments Referral - Liver Txp Encounter Details Date Type Department Care Team (Late st Contact Info) Description 05/11/2025 Telephone [facility] [address] [address] Edda Méndez [place] [phone] Referral - Liver Txp Social History Tobacco [...] 3:40 PM EDT Office Visit [facility] Endocrinology [address] [place] [address] Silvia Lewis S, DOUBLE ENDING MACHINE OPERATOR [address] [place] [address] 08/04/2025 8:30 AM EDT Clinical Support [facility] [address] [place] [address] 08/04/2025 9:00 AM EDT Appointment [facility] Radiology [address] [place] [address] 08/04/2025 9:45 AM EDT Appointment [facility] [address] 1st [place] [address] 08/04/2025 10:00 AM EDT Clinical Support [facility] [address] [address] CH - CLINICAL NUTRITION [address] [place], [place] [address] 08/04/2025 11:00 AM EDT Office Visit [facility] [address] [address] Lily Dickinson MD [address] [address] 08/04/2025 11:30 AM EDT Social Work [facility] [address] [address] Elaine Banerjee [place], [place] [phone] 08/04/2025 2:30 PM EDT Appointment [facility] [address] [place] [address] 08/04/2025 3:00 PM EDT Appointment [facility] Pulmonary Function Testing 800 [place] [address] 11/02/2025 11:00 AM EST Office Visit [facility] Medicine Specialties [address] 2nd [place] [address] Raman Chang PA [address] [address] Scheduled Referrals Name Type Priority Associated Diagnoses [...] blood specimen / Unknown 03/05/2025 Result [facility] Provider LAB BLOOD ORDERABLES Final R esult * Total Bilirubin, Plasma (03/05/2025) External Bilirubin Total 1.6 mg/dL Blood Venous blood specimen / Unknown 03/05/2025 Result [facility] LAB BLOOD ORDERABLES Final R esult * Creatinine, Plasma (03/05/2025) External Creatinine Blood 1.1 mg/dL Blood Venous blood specimen / Unknown 03/05/2025 Result [facility] LAB BLOOD ORDERABLES Final R esult * Sodium, Plasma (03/05/2025) External Sodium 135 mmol/L Blood Venous blood specimen / Unknown 03/05/2025 Result [facility] LAB BLOOD ORDERABLES Final R esult * Prothrombin Time/INR (03/05/2025) External Prothrombin Time (PT) 13.6 External INR - Internormal Ratio 1.3 Blood Venous blood specimen / Unknown 03/05/2025 Result [facility] LAB BLOOD ORDERABLES Final R esult documented [...] documented as of this encounter Care Teams Cigar Making Supervisor Relationship Specialty Start Date End Date Jessica Man APRN [address] [place] [address] PCP - General 02/24/21 Mary Lim APRN [address] [place] [address] Referring Physician Gastroenterology 05/11/25 documented as of this encounter
--- OUTSIDE RECORDS SUMMARY | 2025-07-10 12:39 | XMS_ITS | Encounter Summary ---
Author Organization Healthcare Address [address] [place] [address] Care Team Providers Care Biological Science Technician Fish Name Role Phone Jessica Man NAVIGATING OFFICER Primary Care Provider Mary Lim NAVIGATING OFFICER Unavailable [phone] Encounter Details Date Type Department Care Team (Late st Contact Info) Description 07/01/2025 Telephone [facility]plant [facility] [address] [facility] [address] [place] [address] Shruti Scott Social History Tobacco Use Types [...] Packet out to her today that includes dental/ob-drum printer/vaccination paperwork. Patient expresses she wears dentures and does not have a a dentist, let her know that I would update nurse coordinator on this. Patient expresses she needs a mammogram completed and usually goes to [facility] for this. Let her know that I would also update nurse coordinator for this as well. Patient verbalized and confirmed appts and understanding of Liver Evaluation along with NPO instructions. documented in this encounter Plan of Treatment Upcoming Encounters Date Type Department Care Team (Late st Contact Info) Description 07/22/2025 3:40 PM EDT Office Visit [facility] Endocrinology [address] [place] [address] Silvia Lewis, NAVIGATING OFFICER [address] [facility] 125 [place] [address] 08/04/2025 8:30 AM EDT Clinical Support [facility] Transplant Center [address] [facility] [address] [place] [address] 08/04/2025 9:00 AM EDT Appointment [facility] Radiology [address] [place] [address] 08/04/2025 9:45 AM EDT Appointment [facility] Radiology [address] 1st [place] [address] 08/04/2025 10:00 AM EDT Clinical Support [facility]plant [facility] [address] [facility] [address] [place] [address] CH - CLINICAL NUTRITION [address] [place] [address] 08/04/2025 11:00 AM EDT Office Visit [facility]plant [facility] [address] [place] [address] Lily Dickinson MD [address] [place] [address] 08/04/2025 11:30 AM EDT Social Work [facility] [address] [place] [address] Elaine Banerjee [place], [place] [address] 08/04/2025 2:30 PM EDT Appointment [facility] [address] [place] [address] 08/04/2025 3:00 PM EDT Appointment [facility] Pulmonary Function Testing [address] [place] [address] 11/02/2025 11:00 AM EST Office Visit [facility] Medicine Specialties [address] 2nd [place] [address] Raman Chang PA [address] [facility] [address] [place] [address] documented as of this encounter [...] documented as of this encounter Care Teams Biological Science Technician Fish Relationship Specialty Start Date End Date Jessica Man, NAVIGATING OFFICER [address] [place] [address] PCP - General 02/24/21 Mary Lim APRN [address] [place] [address] Referring Physician Gastroenterology 05/11/25 documented as of this encounter
--- OUTSIDE RECORDS SUMMARY | 2025-07-10 12:40 | XMS_ITS | Encounter Summary ---
Author Organization [facility] Address [address] [place] [address] Care Team Providers Care Retail Customer Service Specialist Name Role Phone Jessica Man MAMMOGRAPHY TECHNICIAN Primary Care Provider Mary Lim MAMMOGRAPHY TECHNICIAN Unavailable [phone] Reason for Visit * Reason Comments Appointment Confirmation and rem inders Encounter Details Date Type Department Care Team (Late st Contact Info) Description 06/23/2025 Telephone [facility] [address] [place] [address] Edda Méndez [place] [phone] Appointment (Confirmation and reminders) Social History Tobacco [...] needed. Provided alternate contact for Edward Douglas ([phone]). documented in this encounter Plan of Treatment Upcoming Encounters Date Type Department Care Team (Late st Contact Info) Description 07/22/2025 3:40 PM EDT Office Visit [facility] Endocrinology [address] [place] [address] Silvia Lewis, MAMMOGRAPHY TECHNICIAN [address] [place] [address] 08/04/2025 8:30 AM EDT Clinical Support [facility] Transplant Center [address] [facility] [address] [place] [address] 08/04/2025 9:00 AM EDT Appointment [facility] Radiology [address] [place] [address] 08/04/2025 9:45 AM EDT Appointment [facility] Radiology [address], 1st [place] [address] 08/04/2025 10:00 AM EDT Clinical Support [facility] Transplant [facility] [address] [place] [address] CH - CLINICAL NUTRITION [address] [place] [address] 08/04/2025 11:00 AM EDT Office Visit [facility] Transplant [place] [address] [place] [address] Lily Dickinson MD [address] [place] [address] 08/04/2025 11:30 AM EDT Social Work [facility] [address] [place] [address] [address]onne[address] [place], [place] [address] 08/04/2025 2:30 PM EDT Appointment [facility] Radiology [address] [place] [address] 08/04/2025 3:00 PM EDT Appointment [facility] Pulmonary Function Testing [address] [place] [address] 11/02/2025 11:00 AM EST Office Visit [facility] Medicine Specialties [address], 2nd [place] [address] Raman Chang, PA [address] [facility] [address] [place] [address] documented as of this encounter [...] documented as of this encounter Care Teams Retail Customer Service Specialist Relationship Specialty Start Date End Date Jessica Man APRN [address] [place] [address] PCP - General 02/24/21 Mary Lim APRN [address] [place] [address] Referring Physician Gastroenterology 05/11/25 documented as of this encounter
--- OUTSIDE RECORDS SUMMARY | 2025-07-10 12:40 | XMS_ITS | Encounter Summary ---
Author Organization Healthcare Address [address] [place] [address] Care Team Providers Care Asphalt Tamper Name Role Phone Jessica Man COUNSELOR SUPERVISOR Primary Care Provider Mary Lim COUNSELOR SUPERVISOR Unavailable [phone] Encounter Details Date Type Department Care Team (Late Contact Info) Description 02/12/2025 Orders Only External Location [address] [place] [address] Provider, External Social History Tobacco Use Types [...] EDT Office Visit [facility] Endocrinology [address] [place] [address] Silvia Lewis S, COUNSELOR SUPERVISOR [address] [place] [address] 08/04/2025 8:30 AM EDT Clinical Support [facility] Transplant [place] [address] [place] [address] 08/04/2025 9:00 AM EDT Appointment [facility] Radiology [address] [place] [address] 08/04/2025 9:45 AM EDT Appointment [facility] Radiology [address] 1[address] [place] [address] 08/04/2025 10:00 AM EDT Clinical Support [facility] Transplant [place] [address] [facility] [address] [place] [address] CH - CLINICAL NUTRITION [address] [place] [address] 08/04/2025 11:00 AM EDT Office Visit [facility] Transplant [place] [address] [place] [address] Lily Dickinson MD [address] [facility] [address] [place] [address] 08/04/2025 11:30 AM EDT Social Work [facility] Transplant [place] [address] [facility] [address] [place] [address] [place] [address] 08/04/2025 2:30 PM EDT Appointment [facility] [address] [place] [address] 08/04/2025 3:00 PM EDT Appointment [facility] Pulmonary Function Testing [address] [place] [address] 11/02/2025 11:00 AM EST Office Visit [facility] Medicine Special[facility] [address] 2[address] [place] [address] Raman Chang PA [address] [place] [address] documented as of this encounter [...] documented as of this encounter Care Teams Asphalt Tamper Relationship Specialty Start Date End Date Jessica Man APRN [address] [place] [address] PCP - General 02/24/21 Mary Lim APRN [address] [place] [address] Referring Physician Gastroenterology 05/11/25 documented as of this encounter
--- OUTSIDE RECORDS SUMMARY | 2025-07-10 12:40 | XMS_ITS | Encounter Summary ---
Author Organization [employer] ([place], [place], [place], [place]) Address [address] [place] [address] Care Team Providers Care Orthotist Or Prosthetist Name Role Phone Unavailable Primary Care Provider Unavailabl e Encounter Details Date Type Department Care Team (Late st Contact Info) Description 11/05/2018 Transcribed Document [facility] [place] [address] ProviderHugh MD [address] [place] [address] Social History Tobacco Use Types Packs/Day [...] Hugh Mccollum MD - 11/05/2018 5:34 PM COLOR DIPPER [address] , [place] [address] Patient Copy Patient Information: Name: CHARLES JASMINE Current Date: 11/05/2018 17:34:47 : 1970 Patient Address: [address] [place] [address] SINDI AYALA [address] Patient Attending Physician: YARI CHACKO MD-CAR Primary Care Provider: SHERINE BLEVINS RN-[facility] Primary Care Provider Discharge Diagnosis: Weight on Admission: 191 lb, 0 oz Comment: Follow-up Instructions: With: Address: When: JORDI IBANEZ [address], [place] [address] Business (1) Within 1 month [...] 09/24/2002 Document Revised: 05/28/2017 Document Reviewed: 02/14/2016 eWise Interactive Patient Education ? 2017 Elsevier Inc. [...] you are awake and alert. ??? Take szya-jho-aawuwou and prescription medicines only as told by [...] 07/21/2014 Document Revised: 03/04/2017 Document Reviewed: 01/19/2017 eWise Interactive Patient Education ? 2017 eWise Inc. Radial Site Care Introduction Refer to [...] 04/18/2006 Document Revised: 03/07/2017 Document Reviewed: 03/03/2014 eWise Interactive Patient Education ? 2017 eWise Inc. CIGARETTE SMOKING: The facts are clear, cigarette smoking will shorten your life. Smoking can cause many illnesses along the way. As a healthcare provider, we recommend that you stop smoking. Assistance with quitting is available by contacting 3-475-NDWQ-NOW. This is a free resource providing counseling, [...] computer, smartphone, or tablet. Just go to Ne[employer] to get started. Questions? Call . [facility] would like to thank you for allowing us to assist you with your healthcare needs. I, CHARLES JASMINE, (or herbicide service sales representative) have received the above patient education materials/instructions and have verbalized understanding: Patient Signature _ Date/Time Patient Refrigerator Repair Technician Signature (if needed) Date/Time Clinician/Hospital Refrigerator Repair Technician Signature (if needed) Date/Time documented in this encounter Plan of Treatment Not on file documented as of this encounter Visit Diagnoses Not on filedocumented in this encounter
--- OUTSIDE RECORDS SUMMARY | 2025-07-10 12:40 | XMS_ITS | Clinical Summary ---
Author Organization [employer] ([place], [place], [place], [place]) Address [address] [place] [address] Care Team Providers Care Marketing Operations Coordinator Name Role Phone Unavailable Primary Care [...] Plan of Treatment Not on file Insurance [facility]
--- OUTSIDE RECORDS SUMMARY | 2025-07-10 12:40 | XMS_ITS | Encounter Summary ---
Author Organization Healthcare Address [address] [place] [address] Care Team Providers Care Nipple Maker Name Role Phone Jessica Man CAT CRACKER OPERATOR Primary Care Provider Mary Lim CAT CRACKER OPERATOR Unavailable [phone] Reason for Visit * Reason Onset Date Comments Med Refill 06/04/2025 Encounter Details Date Type Department Care Team (Late st Contact Info) Description 06/04/2025 Refill [facility] Endocrinology [address] [place] [address] Jessica Aranda Social History Tobacco Use Types [...] 07/22/2025 3:40 PM EDT Office Visit [facility] [address] [place] [address] Silvia Lewis, CAT CRACKER OPERATOR [address] [place] [address] 08/04/2025 8:30 AM EDT Clinical Support [facility] Transplant Center [address] [facility] [address] [place] [address] 08/04/2025 9:00 AM EDT Appointment [facility] Radiology [address] [place] [address] 08/04/2025 9:45 AM EDT Appointment [facility] Radiology [address], 1st [place] [address] 08/04/2025 10:00 AM EDT Clinical Support [facility] Transplant Center [address] [place] [address] CH - CLINICAL NUTRITION [address] [place] [address] 08/04/2025 11:00 AM EDT Office Visit [facility] Transplant Center [address] [facility] [address] [place] [address] Lily Dickinson MD [address] [facility] [address] [place] [address] 08/04/2025 11:30 AM EDT Social Work [facility] Transplant Center [address] [facility] [address] [place] [address] [place] [address] 08/04/2025 2:30 PM EDT Appointment [facility] Radiology [address] [place] [address] 08/04/2025 3:00 PM EDT Appointment [facility] Pulmonary Function Testing [address] [place] [address] 11/02/2025 11:00 AM EST [facility] Medicine [facility] [address], [address] [place] [address] Raman Chang, PA [address] [place] [address] documented as of this encounter Visit Diagnoses [...] documented as of this encounter Care Teams Nipple Maker Relationship Specialty Start Date End Date Jessica Man APRN [address] [place], [place] [id number] PCP - General 02/24/21 Mary Lim APRN [address] [place] [address] Referring Physician Gastroenterology 05/11/25 documented as of this encounter
--- OUTSIDE RECORDS SUMMARY | 2025-07-10 12:40 | XMS_ITS | Encounter Summary ---
Author Organization [facility] Address [address] [place] [address] Care Team Providers Care Biological Technical Officer Name Role Phone Jessica Man POSTAL SERVICE WINDOW CLERK Primary Care Provider [phone] Mary Lim POSTAL SERVICE WINDOW CLERK Unavailable [phone] Reason for Referral * Consultation (Routine) - Closed Specialty Diagnoses / Procedures Referred By Contshiloh t Referred To Contact Endocrinology Diagnoses Type 2 diabetes mellitus with diabetic neuropathy, unspecified whether key person insulin use Jessica Man, POSTAL SERVICE WINDOW CLERK [address] [place] [address] Phone: tel: fax: [facility] Endocrinology [address] [place] [address] Phone: tel: fax: Referral ID Status Reason Start Date Expiration Date V isits Requested Visits Authorized [id number] Closed Specialty Services Required 10/10/2022 04/10/2024 1 1 Encounter Details Date Type Department Care Team (Late st Contact Info) Description 10/10/2022 Community [facility] Community Practice [address] [place] [address] Jessica Man, POSTAL SERVICE WINDOW CLERK [address] [place], [place] [id number] Type 2 diabetes mellitus with diabetic neuropathy, unspecified whether key person insulin use (CMS/[facility]) (Primary Dx) Social History Tobacco Use Types [...] 3:40 PM EDT Office Visit [facility] Endocrinology [address] [place] [address] Silvia Lewis, POSTAL SERVICE WINDOW CLERK [address] [place] [address] 08/04/2025 8:30 AM EDT Clinical Support [facility] Transplant Center [address] [place] [address] 08/04/2025 9:00 AM EDT Appointment [facility] Radiology [address] [place] [address] 08/04/2025 9:45 AM EDT Appointment [facility] Radiology [address], 1[address] [place] [address] 08/04/2025 10:00 AM EDT Clinical Support [facility] Transplant Center [address] [place] [address] CH - CLINICAL NUTRITION [address] [place], [place] [id number] 08/04/2025 11:00 AM EDT Office Visit [facility] Transplant Center [address] [place] [address] Lily Dickinson MD [address] [place] [address] 08/04/2025 11:30 AM EDT Social Work [facility] Transplant Center [address] [facility] [address] [place] [address] Elaine Banerjee [place], [place] [phone] 08/04/2025 2:30 PM EDT Appointment [facility] Radiology [address] [place] [address] 08/04/2025 3:00 PM EDT Appointment [facility] Pulmonary Function Testing [address] [place] [address] 11/02/2025 11:00 AM EST Office Visit [facility] Medicine Specialties [address] [place] [address] Raman Chang PA [address] [facility] [address] [place] [address] Scheduled Referrals Name Type Priority Associated Diagnoses Order Schedule Ambulatory referral to Endocrinology Outpatient Referral Routine Type 2 diabetes mellitus with diabetic neuropathy, unspecified whether intermediate insulin use (CMS/[facility]) Expected: 10/10/2022 (Approximate), Expires: 04/10/2024 documented as of this encounter Visit Diagnoses Diagnosis Type 2 diabetes mellitus with diabetic neuropathy, unspecified whether key person insulin use- Primary documented in this encounter Care Teams Biological Technical Officer Relationship Specialty Start Date End Date Jessica Man APRN [address] [place] [address] PCP - General 02/24/21 Mary Lim APRN [address] [place] [address] Referring Physician Gastroenterology 05/11/25 documented as of this encounter
--- OUTSIDE RECORDS SUMMARY | 2025-07-10 12:40 | XMS_ITS | Encounter Summary ---
Author Organization [employer] ([place], [place], [place], [place]) Address [address] [place] [address] Care Team Providers Care Car Unloader Name Role Phone Unavailable Primary Care Provider Unavailabl e Encounter Details Date Type Department Care Team (Late st Contact Info) Description 11/05/2018 Transcribed Document [facility] [place] [facility] [place] [address] ProviderHugh MD [address] [place], [place] [id number] Social History Tobacco Use Types Packs/Day Years [...] - Hugh ProviderMD - 11/05/2018 1:02 PM 5TH GRADE TEACHER Spiritual Care Assessment Entered On: 11/05/2018 14:33 [...] Family/Significant other supported, Feelings expressed Spiritual and Tenriism : Prayer shared, Spiritual/Tenriism support provided ROMEO SAWANT P - 11/05/2018 14:30 EST Electronically signed by [facility] Conversion Division Supervisor Cerner at 01/31/2023 5:28 PM CDT documented in this encounter Plan of Treatment Not on file documented as of this encounter Visit Diagnoses Not on filedocumented in this encounter
--- OUTSIDE RECORDS SUMMARY | 2025-07-10 12:40 | XMS_ITS | Referral Summary ---
Author Organization [employer] ([place], [place], [place], [place]) Address [address] [place] [address] Care Team Providers Care Cutting Pressman Name Role Phone Unavailable Primary Care Provider [...] Plan of Treatment Not on file Insurance [facility]
--- OUTSIDE RECORDS SUMMARY | 2025-07-10 12:40 | XMS_ITS ---
Author Organization [facility] Address [address] [place] [address] Care Team Providers Care Chief Ultrasound Technologist Name Role Phone Jessica Man APRN Primary Care Provider [phone] Mary Lim APRN Unavailable [phone] Transplant Episode Liver Candidate [facility] ([place], [place]) - [facility] Evaluation began on 06/28/2025 Marked as Active on 06/28/2025 Liver CoordinatorJaci Duenas RN Fax: N/A Email: N/A Scores Score Value Updated Expires Exceptions/[place] sons CPRA Not available MELD (Calc) 18 06/25/2025 [employer] [place] Diagnosis Organ Primary Contributory Liver Cirrhosis: Metabolic Dysfunction -Associated Steatohepatitis (MAS) Care Team Name Role Phone Fax Email Jaci Duenas RN Liver Coordinator [phone] N/A N/A Mary Lim APRN Referring Physician [phone] N/A Jessica Man APRN Primary Care Provider [phone] N/A Elaine Banerjee Instructor Apparel Manufacture [phone] N/A N/A Donnie Jordan MD Surgeon [phone] N/A Events Pre-Transplant Referred: 05/11/2025 Evaluation began: 06/28/2025 Committee: 06/28/2025 Appointments (06/09/2025 - 08/09/2025) When With Visit Type Description 06/25/2025 Transplant [...]
--- OUTSIDE RECORDS SUMMARY | 2025-07-10 12:40 | XMS_ITS | Encounter Summary ---
Author Organization [employer] ([place], [place], [place], [place]) Address [address] [place] [address] Care Team Providers Care Master Glazier Name Role Phone Unavailable Primary Care Provider Unavailabl e Encounter Details Date Type Department Care Team (Late st Contact Info) Description 11/05/2018 Transcribed Document [facility] [place] [facility] [place] [address] ProviderHugh MD [address] [place] [address] Social History Tobacco Use Types [...] - Hugh ProviderMD - 11/05/2018 5:31 PM DAUB COLOR MIXER Nursing Discharge Summary Entered On: 11/05/2018 17:31 [...] - 11/05/2018 17:31 EST Electronically signed by [facility], [facility] Conversion Mortar Worker Cerner at 01/31/2023 5:45 PM CDT documented in this encounter Plan of Treatment Not on file documented as of this encounter Visit Diagnoses Not on filedocumented in this encounter
--- OUTSIDE RECORDS SUMMARY | 2025-07-10 12:40 | XMS_ITS | Encounter Summary ---
Author Organization [employer] ([place], [place], [place], [place]) Address [address] [place] [address] Care Team Providers Care Philosophy Faculty Member Name Role Phone Unavailable Primary Care Provider Unavailabl e Encounter Details Date Type Department Care Team (Late st Contact Info) Description 11/05/2018 Transcribed Document [facility] [place] [address] ProviderHugh MD [address] [place], [place] [id number] Social History Tobacco Use Types Packs/Day Years [...] - Hugh ProviderMD - 11/05/2018 12:55 PM CLAM SORTER Pre Procedure Adult Entered On: 11/05/2018 13:02 EST Performed On: 11/05/2018 12:55 EST by BARRY PEREIRA RN Height and Weight, Clinical Dosing Height Source : Stated Height Entry Format : [place]rick Height, Feet : 5 ft(Converted to: 152 cm, 60 Inch) Height, Inches : 8 Inch(Converted to: 0 ft 8 Inch, 20.32 cm) Clinical Height : 172.72 cm Weight Source : Standing scale Weight Entry Format : Warrick Clinical Dosing Weight : 86.82 kg Weight, Pounds : 191 lb Body Surface Area (BSA) : 2.01 m2 Body Mass Index : 29.1 kg/m2 (HI) Hobson Body Weight : 63 kg BARRY PEREIRA [...] Obtained From : Patient Primary Language : Georgian Preferred Communication Mode : Verbal Communication Barrier [...] Scale Risk Level : 25-45 Medium Risk [place] Fall Interventions : Adequate lighting, Bed in [...] - 11/05/2018 12:55 EST Electronically signed by [facility], [facility] Conversion Conservation Science Teacher Cerner at 01/31/2023 5:38 PM CDT documented in this encounter Plan of Treatment Not on file documented as of this encounter Visit Diagnoses Not on filedocumented in this encounter
--- OUTSIDE RECORDS SUMMARY | 2025-07-10 12:40 | XMS_ITS | Encounter Summary ---
Author Organization [employer] ([place], [place], [place], [place]) Address [address] [place] [address] Care Team Providers Care Environmental Services Project Manager Name Role Phone Unavailable Primary Care Provider Unavailabl e Encounter Details Date Type Department Care Team (Late st Contact Info) Description 11/05/2018 Transcribed Document [facility] [place] [facility] [place] [address] ProviderHugh MD [address] [place] [address] Social History Tobacco Use Types [...] Hugh Mccollum MD - 11/05/2018 5:34 PM FINANCIAL ANALYST Patient Education Materials Follows: Moderate Conscious [...] you are awake and alert. ??? Take ysyv-xpu-eoropcc and prescription medicines only as told by [...] 07/21/2014 Document Revised: 03/04/2017 Document Reviewed: 01/19/2017 ElseTravel Notes Interactive Patient Education ? 2017 Timetovisit Inc. Pulmonary Medicine Steps to Quit Smoking [...] 09/24/2002 Document Revised: 05/28/2017 Document Reviewed: 02/14/2016 Timetovisit Interactive Patient Education ? 2017 Timetovisit Inc. Radial Site Care Introduction Refer to [...] 03/03/2014 Elsevier Interactive Patient Education ? 2017 [employer]isit Inc. documented in this encounter Plan of Treatment Not on file documented as of this encounter Visit Diagnoses Not on filedocumented in this encounter
--- OUTSIDE RECORDS SUMMARY | 2025-07-10 12:40 | XMS_ITS | Encounter Summary ---
Author Organization [employer] ([place], [place], [place], [place]) Address [address] [place] [address] Care Team Providers Care Optical Mechanic Apprentice Name Role Phone Unavailable Primary Care Provider Unavailabl e Encounter Details Date Type Department Care Team (Late st Contact Info) Description 11/05/2018 Transcribed Document [facility] [place] [facility] [place] [address] ProviderHugh MD [address] [place] [address] Social History Tobacco Use Types Packs/Day [...] Hugh Mccollum MD - 11/05/2018 6:33 PM MANAGER FIRE [address] , [place] [address] Patient Copy Patient Information: Name: CHARLES JASMINE Current Date: 11/05/2018 18:33:48 : 1970 Patient Address: [address] [place] [address] SINDI AYALA [address] Patient Attending Physician: YARI CHACKO MD-KATI Primary Care Provider: SHERINE BLEVINS RN-[facility] Primary Care Provider Discharge Diagnosis: Weight on Admission: 191 lb, 0 oz Comment: Follow-up Instructions: With: Address: When: JORDI IBANEZ [address], [place] [address] Business (1) Within 1 month [...] 09/24/2002 Document Revised: 05/28/2017 Document Reviewed: 02/14/2016 ION Signature Interactive Patient Education ? 2017 Elsevier Inc. [...] you are awake and alert. ??? Take fywv-swy-xshoxby and prescription medicines only as told by [...] 07/21/2014 Document Revised: 03/04/2017 Document Reviewed: 01/19/2017 ION Signature Interactive Patient Education ? 2017 ION Signature Inc. Radial Site Care Introduction Refer to [...] 04/18/2006 Document Revised: 03/07/2017 Document Reviewed: 03/03/2014 ION Signature Interactive Patient Education ? 2017 ION Signature Inc. CIGARETTE SMOKING: The facts are clear, cigarette smoking will shorten your life. Smoking can cause many illnesses along the way. As a healthcare provider, we recommend that you stop smoking. Assistance with quitting is available by contacting 7-011-TUMC-NOW. This is a free resource providing counseling, [...] computer, smartphone, or tablet. Just go to Gran[employer] to get started. Questions? Call . [facility] would like to thank you for allowing us to assist you with your healthcare needs. MITALI Mason CONNIE SUE, (or healthcare representative) have received the above patient education materials/instructions and have verbalized understanding: Patient Signature _ Date/Time Patient Patient Account Liaison Signature (if needed) Date/Time Clinician/Hospital Patient Account Liaison Signature (if needed) Date/Time documented in this encounter Plan of Treatment Not on file documented as of this encounter Visit Diagnoses Not on filedocumented in this encounter
--- OUTSIDE RECORDS SUMMARY | 2025-07-10 12:40 | XMS_ITS | Encounter Summary ---
Author Organization [facility] Address [address] [place] [address] Care Team Providers Care Sales Research Analyst Name Role Phone Jessica Man STITCHER STANDARD MACHINE Primary Care Provider [phone] Mary Lim STITCHER STANDARD MACHINE Unavailable [phone] Encounter Details Date Type Department Care Team (Late st Contact Info) Description 06/23/2025 Telephone [facility] Transplant Center [address] [facility] [address] [place] [phone] Edda Méndez [place] [phone] Social History Tobacco Use Types Packs/Day Years [...] Visit [facility] Endocrinology [address] [place] [address] Silvia Lewis, STITCHER STANDARD MACHINE [address] [facility] [address] [place] [address] 08/04/2025 8:30 AM EDT Clinical Support [facility] Transplant Center [address] [facility] [address] [place] [address] 08/04/2025 9:00 AM EDT Appointment [facility] Radiology [address] [place] [address] 08/04/2025 9:45 AM EDT Appointment [facility] Radiology [address] 1[address] [place] [address] 08/04/2025 10:00 AM EDT Clinical Support [facility] Transplant Center [address] [place] [address] CH - CLINICAL NUTRITION [address] [place] [address] 08/04/2025 11:00 AM EDT Office Visit [facility] Transplant Center [address] [place] [address] Lily Dickinson MD [address] [facility] [address] [place] [address] 08/04/2025 11:30 AM EDT Social Work [facility] Transplant Center [address] [place] [address] Elaine Banerjee [place], [place] [id number] 08/04/2025 2:30 PM EDT Appointment [facility] Radiology [address] [place] [address] 08/04/2025 3:00 PM EDT Appointment [facility] Pulmonary Function Testing [address] [place] [address] 11/02/2025 11:00 AM EST Office Visit [facility] Medicine Specialties [address] 2[address] [place] [address] Raman Chang PA [address] [facility] [address] [place] [address] documented as of this encounter [...] as of this encounter Care Teams Sales Research Analyst Relationship Specialty Start Date End Date Jessica Man APRN [address] [place] [address] PCP - General 02/24/21 Mary Lim APRN [address] [place] [address] Referring Physician Gastroenterology 05/11/25 documented as of this encounter
--- OUTSIDE RECORDS SUMMARY | 2025-07-10 12:40 | XMS_ITS | Encounter Summary ---
Author Organization Healthcare Address [address] [place] [address] Care Team Providers Care Director Of Supply Chain Name Role Phone Jessica Man FLOOR RENOVATOR Primary Care Provider [phone] Mary Lim FLOOR RENOVATOR Unavailable [phone] Encounter Details Date Type Department Care Team [...] Description 07/22/2025 3:40 PM EDT Office Visit [facility] Endocrinology [address] [place] [address] Silvia Lewis, FLOOR RENOVATOR [address] [place] [address] 08/04/2025 8:30 AM EDT Clinical Support [facility] [address] [place] [address] 08/04/2025 9:00 AM EDT Appointment [facility] Radiology [address] [place] [address] 08/04/2025 9:45 AM EDT Appointment [facility] Radiology [address], 1st [place] [address] 08/04/2025 10:00 AM EDT Clinical Support [facility] [address] [facility] [address] [place] [address] CH - CLINICAL NUTRITION 800 [place] [address] 08/04/2025 11:00 AM EDT Office Visit [facility] [place] [address] [place] [address] Lily Dickinson MD [address] [facility] [address] [place] [address] 08/04/2025 11:30 AM EDT Social Work [facility] [address] [facility] [address] [place] [address] [place] [address] 08/04/2025 2:30 PM EDT Appointment [facility] Radiology [address] [place] [address] 08/04/2025 3:00 PM EDT Appointment [facility] Pulmonary Function Testing [address] [place] [address] 11/02/2025 11:00 AM EST Office Visit [facility] Medicine [facility] [address], 2nd [place] [address] Raman Chang, PA [address] [place] [address] documented as of this encounter [...] as of this encounter Care Teams Director Of Supply Chain Relationship Specialty Start Date End Date Jessica Man APRN [address] [place] [address] [id number] PCP - General 02/24/21 Mary Lim APRN [address] [place] [address] Referring Physician Gastroenterology 05/11/25 documented as of this encounter
--- OUTSIDE RECORDS SUMMARY | 2025-07-10 12:40 | XMS_ITS | Encounter Summary ---
Author Organization Healthcare Address [address] [place] [address] Care Team Providers Care Review Nurse Name Role Phone Jessica Man BUSINESS TRAVEL CONSULTANT Primary Care Provider Mary Lim BUSINESS TRAVEL CONSULTANT Unavailable [phone] Encounter Details Date Type Department Care Team (Late Contact Info) Description 06/28/2025 Orders Only [facility] [address] [place] [address] Jaci Duenas, RN HOSPITAL LIVER [id number] [address] [place] [address] [id number] Social History Tobacco Use Types Packs/Day Years [...] EDT Office Visit [facility] Endocrinology [address] [place] [address] Silvia Lewis, BUSINESS TRAVEL CONSULTANT [address] [place] [address] 08/04/2025 8:30 AM EDT Clinical Support [facility] [address] [facility] [address] [place] [address] 08/04/2025 9:00 AM EDT Appointment [facility] Radiology [address] [place] [address] 08/04/2025 9:45 AM EDT Appointment [facility] Radiology [address], 1st [place] [address] 08/04/2025 10:00 AM EDT Clinical Support [facility] [address] [facility] [address] [place] [address] CH - CLINICAL NUTRITION 800 [place] [address] 08/04/2025 11:00 AM EDT Office Visit [facility] [place] [address] [facility] [address] [place] [address] Lily Dickinson MD [address] [facility] [address] [place] [address] 08/04/2025 11:30 AM EDT Social Work [facility] [address] [facility] [address] [place] [address] [place] [address] 08/04/2025 2:30 PM EDT Appointment [facility]iology [address] [place] [address] 08/04/2025 3:00 PM EDT Appointment [facility] Pulmonary Function Testing [address] [place] [address] 11/02/2025 11:00 AM EST Office Visit [facility] Medicine [facility] [address], 2nd [place] [address] Raman Chang, PA [address] [place] [address] documented as of this encounter [...] documented as of this encounter Care Teams Review Nurse Relationship Specialty Start Date End Date Jessica Man APRN [address] [place] [address] PCP - General 02/24/21 Mary Lim APRN [address] [place] [address] Referring Physician Gastroenterology 05/11/25 documented as of this encounter
--- OUTSIDE RECORDS SUMMARY | 2025-07-10 12:40 | XMS_ITS | Encounter Summary ---
Author Organization [facility] Address [address] [place] [address] Care Team Providers Care Deputy Commissioner Name Role Phone Jessica Man GIS PROFESSOR Primary Care Provider [phone] Mary Lim GIS PROFESSOR Unavailable [phone] Encounter Details Date Type Department Care Team (Late st Contact Info) Description 06/01/2025 Telephone [facility] Transplant Center [address] [place] [address] Edda Méndez [place] [phone] Social History Tobacco Use Types Packs/Day Years [...] Description 07/22/2025 3:40 PM EDT Office Visit [facility] Endocrinology [address] [place] [address] Silvia Lewis, GIS PROFESSOR [address] [place] [address] 08/04/2025 8:30 AM EDT Clinical Support [facility] Transplant [place] [address] [facility] [address] [place] [address] 08/04/2025 9:00 AM EDT Appointment [facility] Radiology [address] [place] [address] 08/04/2025 9:45 AM EDT Appointment [facility] Radiology [address], 1st [place] [address] 08/04/2025 10:00 AM EDT Clinical Support [facility] Transplant [place] [address] [facility] [address] [place] [address] CH - CLINICAL NUTRITION 800 [place] [address] 08/04/2025 11:00 AM EDT Office Visit [facility] Transplant [facility] [address] [place] [address] Lily Dickinson MD [address] [facility] [address] [place] [address] 08/04/2025 11:30 AM EDT Social Work [facility]plant [facility] [address] [place] [address] Elaine Banerjee [place], [place] [phone] 08/04/2025 2:30 PM EDT Appointment [facility] Radiology [address] [place] [address] 08/04/2025 3:00 PM EDT Appointment [facility] Pulmonary Function Testing [address] [place] [address] 11/02/2025 11:00 AM EST Office Visit [facility] Medicine Specialties [address], 2nd [place] [address] Raman Chang PA [address] [facility] [address] [place] [address] documented as of this encounter [...] documented as of this encounter Care Teams Deputy Commissioner Relationship Specialty Start Date End Date Jessica Man APRN [address] [place] [address] PCP - General 02/24/21 Mary Lim APRN [address] [place] [address] Referring Physician Gastroenterology 05/11/25 documented as of this encounter
--- OUTSIDE RECORDS SUMMARY | 2025-07-10 12:40 | XMS_ITS | Encounter Summary ---
Author Organization Healthcare Address [address] [place] [address] Care Team Providers Care Cheese Maker Name Role Phone Jessica Man CATTLE BRANDER Primary Care Provider Mary Lim CATTLE BRANDER Unavailable [phone] Encounter Details Date Type Department Care Team (Late st Contact Info) Description 06/04/2025 Telephone [facility] Endocrinology [address] [place] [address] Silvia Lewis, CATTLE BRANDER [address] [facility] [address] [place] [address] Social History Tobacco Use Types [...] Description 07/22/2025 3:40 PM EDT Office Visit [facility] Endocrinology [address] [place] [address] Silvia Lewis, CATTLE BRANDER [address] [place] [address] 08/04/2025 8:30 AM EDT Clinical Support [facility] Transplant Center [address] [place] [address] 08/04/2025 9:00 AM EDT Appointment [facility] Radiology [address] [place] [address] 08/04/2025 9:45 AM EDT Appointment [facility] Radiology [address], 1st [place] [address] 08/04/2025 10:00 AM EDT Clinical Support [facility] Transplant [facility] [address] [place] [address] CH - CLINICAL NUTRITION [address] [place] [address] 08/04/2025 11:00 AM EDT Office Visit [facility] Transplant [facility] [address] [place] [address] Lily Dickinson MD [address] [place] [address] 08/04/2025 11:30 AM EDT Social Work [facility] Transplant Center [address] [place] [address] [place] [address] 08/04/2025 2:30 PM EDT Appointment [facility]iology [address] [place] [address] 08/04/2025 3:00 PM EDT Appointment [facility] Pulmonary Function Testing [address] [place] [address] 11/02/2025 11:00 AM EST Office Visit [facility] Medicine Specialties [address], 2nd [place] [address] Raman Chang PA [address] [place] [address] documented as of this [...] documented as of this encounter Care Teams Cheese Maker Relationship Specialty Start Date End Date Jessica Man APRN [address] [place] [address] [id number] PCP - General 02/24/21 Mary Lim, CATTLE BRANDER [address] [place] [address] Referring Physician Gastroenterology 05/11/25 documented as of this encounter
--- OUTSIDE RECORDS SUMMARY | 2025-07-10 12:40 | XMS_ITS | Encounter Summary ---
Author Organization Healthcare Address [address] [place] [address] Care Team Providers Care Cleat Maker Name Role Phone Man, Jessica Khoury PRESIDENT [place] Primary Care Provider Mary Lim PRESIDENT [place] Unavailable [phone] Encounter Details Date Type Department Care Team [...] Visit [facility] Endocrinology [address] [place] [address] Silvia Lewis, PRESIDENT [place] [address] [place] [address] 08/04/2025 8:30 AM EDT Clinical Support [facility] Transplant Center [address] [place] [address] 08/04/2025 9:00 AM EDT Appointment [facility] Radiology [address] [place] [address] 08/04/2025 9:45 AM EDT Appointment [facility] Radiology [address], 1st [place] [address] 08/04/2025 10:00 AM EDT Clinical Support [facility] Transplant [place] [address] [place] [address] CH - CLINICAL NUTRITION [address] [place] [address] 08/04/2025 11:00 AM EDT Office Visit [facility] Transplant [place] [address] [place] [address] Lily Dickinson MD [address] [place] [address] 08/04/2025 11:30 AM EDT Social Work [facility] Transplant [place] [address] [facility] [address] [place] [address] [place] [address] 08/04/2025 2:30 PM EDT Appointment [facility] Radiology [address] [place] [address] 08/04/2025 3:00 PM EDT Appointment [facility] Pulmonary Function Testing [address] [place] [address] 11/02/2025 11:00 AM EST Office Visit [facility] Medicine Specialties [address], 2nd [place] [address] Raman Chang, PA [address] [facility] [address] [place] [address] documented as of this encounter Visit Diagnoses [...] documented as of this encounter Care Teams Cleat Maker Relationship Specialty Start Date End Date Jessica Man APRN [address] [place] [address] PCP - General 02/24/21 Mary Lim APRN [address] [place] [address] Referring Physician Gastroenterology 05/11/25 documented as of this encounter
--- OUTSIDE RECORDS SUMMARY | 2025-07-10 12:40 | XMS_ITS | Encounter Summary ---
Author Organization [employer] ([place], [place], [place] Address [address] [place] [address] Care Team Providers Care Machine Programmer Name Role Phone Unavailable Primary Care Provider Unavailabl e Encounter Details Date Type Department Care Team (Late st Contact Info) Description 11/05/2018 Transcribed Document [facility] Family Medicine [place] [address] ProviderHugh MD [address] [place] [address] [id number] Social History Tobacco Use Types Packs/Day Years [...] - Hugh ProviderMD - 11/05/2018 9:52 AM MANAGER SHAREPOINT Patient: CHARLES JASMINE Age: 48 years Sex: Female : 1970 Associated Diagnoses: None Author: YARI CHACKO MD-CAR Basic Information PCP: Teresa Escobar MD Culture Manager: Olya Norris MD Chief Complaint Chest pain, [...] Problems HTN - Hypertension / SNOMED CT 5544774496 / Confirmed HLD - Hyperlipidemia / SNOMED CT 042753771 / Confirmed Type 2 diabetes mellitus / SNOMED CT 545846478 / Confirmed Menopause / SNOMED CT 448686775 / Confirmed Angina / SNOMED CT 791255411 / Confirmed Chronic cough / SNOMED CT 394185210 / Confirmed Sleep apnea / SNOMED CT 490277693 / Confirmed Cirrhosis of liver / SNOMED CT 57352372 / Confirmed Arthritis / SNOMED CT 2107849 / Confirmed Back pain / SNOMED CT 817056444 / Confirmed Restless legs syndrome / SNOMED CT 51100626 / Confirmed Peripheral neuropathy / SNOMED CT 0557101289 / Confirmed Zphqh-1-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 Social & Psychosocial Habits No Data Available Past Medical History: Active Type 2 diabetes mellitus (363503058) HTN - Hypertension (8455074791) HLD - Hyperlipidemia (941624325) Family History: Father Heart disease Diabetes mellitus Mother Hypertension Procedure history: CHOLECYSTECTOMY (01521). Salpingectomy. Social History Social & Psychosocial Habits [...] of motion, Normal strength. Integumentary: Warm, Dry, [place]. Neurologic: Alert, Oriented. Psychiatric: Cooperative. Review / [...]
--- OUTSIDE RECORDS SUMMARY | 2025-07-10 12:40 | XMS_ITS | Encounter Summary ---
Author Organization Healthcare Address [address] [place] [address] Care Team Providers Care Grievance Manager Name Role Phone Jessica Man CLAIM REPRESENTATIVE Primary Care Provider Mary Lim CLAIM REPRESENTATIVE Unavailable [phone] Encounter Details Date Type Department Care Team (Late st Contact Info) Description 06/28/2025 Telephone [facility] Transplant Center [address] [facility] [address] [place] [address] Jaci Duenas, RN HOSPITAL LIVER [id number] [address] [phone] Social History Tobacco Use Types Packs/Day Years [...] 3:40 PM EDT Office Visit [facility] Endocrinology [address] [place] [address] Silvia Lewis, CLAIM REPRESENTATIVE [address] [place] [address] 08/04/2025 8:30 AM EDT Clinical Support [facility] Transplant Center [address] [facility] [address] [place] [address] 08/04/2025 9:00 AM EDT Appointment [facility] Radiology [address] [place] [address] 08/04/2025 9:45 AM EDT Appointment [facility] Radiology [address], 1st [place] [address] 08/04/2025 10:00 AM EDT Clinical Support [facility] Transplant [facility] [address] [place] [address] CH - CLINICAL NUTRITION [address] [place] [address] 08/04/2025 11:00 AM EDT Office Visit [facility] [address] [place] [address] Lily Dickinson MD [address] [facility] [address] [place] [address] 08/04/2025 11:30 AM EDT Social Work [facility] [address] [place] [address] Elaine Banerjee [place], [place] 5[address] 08/04/2025 2:30 PM EDT Appointment [facility] Radiology [address] [place] [address] 08/04/2025 3:00 PM EDT Appointment [facility] Pulmonary Function Testing [address] [place] [address] 11/02/2025 11:00 AM EST Office Visit [facility] Medicine Specialties [address], 2nd [place] [address] Raman Chang, PA [address] [facility] [address] [place] [address] documented as of this encounter [...] documented as of this encounter Care Teams Grievance Manager Relationship Specialty Start Date End Date Jessica Man APRN [address] [place] [address] PCP - General 02/24/21 Mary Lim APRN [address] [place] [address] Referring Physician Gastroenterology 05/11/25 documented as of this encounter
--- OUTSIDE RECORDS SUMMARY | 2025-07-10 12:40 | XMS_ITS | Encounter Summary ---
Author Organization [employer] ([place], [place], [place], [place]) Address [address] [place] [address] Care Team Providers Care Supervisor Television Chassis Repair Name Role Phone Unavailable Primary Care Provider Unavailabl e Encounter Details Date Type Department Care Team (Late st Contact Info) Description 11/05/2018 Transcribed Document [facility] Family [place] [address] ProviderHugh MD [address] [place], [place] [phone] Social History Tobacco Use Types Packs/Day Years [...] Hugh Mccollum MD - 11/05/2018 3:35 PM ENVIRONMENTAL STUDIES PROFESSOR DATE OF PROCEDURE: LEFT HEART CATHETERIZATION REPORT INDICATION: Lifestyle limiting 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 REFERRING PHYSICIAN: 1. Dr. Honey Ibanez. 2. Shanon Escobar APRN. PROCEDURE: Standard left heart catheterization. TECHNIQUE: A 5/6-Lebanese sheath was placed in the right radial artery. 5 mg verapamil and 3000 units of heparin were administered via the radial artery sheath. Joel catheter was used for selective angiography of the port [place] vessel. It was also used to cross [...] Shanon Escobar APRN Electronically signed by Kelly [facility] Conversion Safety Admin Assistant Cerner at 01/31/2023 5:39 PM CDT documented in this encounter Plan of Treatment Not on file documented as of this encounter Visit Diagnoses Not on filedocumented in this encounter
--- OUTSIDE RECORDS SUMMARY | 2025-07-10 12:40 | XMS_ITS | Encounter Summary ---
Author Organization [facility] Address [address] [place] [address] Care Team Providers Care Container Filler Name Role Phone Jessica Man CAT CRACKER OPERATOR Primary Care Provider [phone] Mary Lim CAT CRACKER OPERATOR Unavailable [phone] Encounter Details Date Type Department Care Team (Late st Contact Info) Description 05/24/2025 Telephone [facility] Transplant [facility] [address] [facility] [address] [place] [address] Edda Méndez [place] [phone] Social History Tobacco Use Types Packs/Day Years [...] Description 07/22/2025 3:40 PM EDT Office Visit [facility] Endocrinology [address] [place] [address] Silvia Lewis, CAT CRACKER OPERATOR [address] [place] [address] 08/04/2025 8:30 AM EDT Clinical Support [facility] Transplant [place] [address] [facility] [address] [place] [address] 08/04/2025 9:00 AM EDT Appointment [facility] Radiology [address] [place] [address] 08/04/2025 9:45 AM EDT Appointment [facility] Radiology [address], 1st [place] [address] 08/04/2025 10:00 AM EDT Clinical Support [facility] Transplant [place] [address] [facility] [address] [place] [address] CH - CLINICAL NUTRITION [address] [place], [place] [address] 08/04/2025 11:00 AM EDT Office Visit [facility] [address] [place] [address] Lily Dickinson MD [address] [place] [address] 08/04/2025 11:30 AM EDT Social Work [facility] Trans[facility] [address] [place] [address] [place] [address] 08/04/2025 2:30 PM EDT Appointment [facility] Radiology [address] [place] [address] 08/04/2025 3:00 PM EDT Appointment [facility] Pulmonary Function Testing [address] [place] [address] 11/02/2025 11:00 AM EST Office [facility] Medicine [facility] [address], 2nd [place] [address] Raman Chang, PA [address] [place] [address] documented as of this encounter Visit Diagnoses [...] documented as of this encounter Care Teams Container Filler Relationship Specialty Start Date End Date Jessica Man APRN [address] [place] [address] PCP - General 02/24/21 Mary Lim APRN [address] [place] [address] [id number] Referring Physician Gastroenterology 05/11/25 documented as of this encounter
--- OUTSIDE RECORDS SUMMARY | 2025-07-10 12:40 | XMS_ITS | Encounter Summary ---
Author Organization Healthcare Address [address] [place] [address] Care Team Providers Care Tool Honing Machine Set Up Operator Name Role Phone Jessica Man TIE TAMPER Primary Care Provider Mary Lim TIE TAMPER Unavailable [phone] Reason for Visit * Reason Onset Date Comments Prior-authorization/insurance Verification 06/09 Encounter Details Date Type Department Care Team (Late st Contact Info) Description 06/09/2025 Telephone [facility] Endocrinology [address] [place] [address] Silvia Adrian, TIE TAMPER 5 [facility] [address] [place] [address] Prior-authorization/in surance Verification Social History [...] to call us back. Also sent a [employer] message regarding this. * Telephone Encounter - [...] PM EDT Office Visit [facility] Endocrinology [address] [place] [address] Silvia Adrian, TIE TAMPER [address] [place] [address] 08/04/2025 8:30 AM EDT Clinical Support [facility] Transplant Center [address] [place] [address] 08/04/2025 9:00 AM EDT Appointment [facility] Radiology [address] [place] [address] 08/04/2025 9:45 AM EDT Appointment [facility] Radiology [address], 1st [place] [address] 08/04/2025 10:00 AM EDT Clinical Support [facility] Transplant Center [address] [facility] [address] [place] [address] Lurdes Mahoney, RD CH - CLINICAL NUTRITION [address] [place] [address] 08/04/2025 11:00 AM EDT Office Visit [facility] Transplant Center [address] [place] [address] Lily Dickinson MD [address] [facility] [address] [place] [address] 08/04/2025 11:30 AM EDT Social Work [facility] Transplant Center [address] [place] [phone] [place] [address] 08/04/2025 2:30 PM EDT Appointment [facility] Radiology [address] [place] [address] 08/04/2025 3:00 PM EDT Appointment [facility] Pulmonary Function Testing [address] [place] [address] 11/02/2025 11:00 AM EST Office Visit [facility] Medicine [facility] [address], 2nd [place] [address] Raman Chang PA [address] [place] [address] documented as of this encounter Visit Diagnoses [...] documented as of this encounter Care Teams Tool Honing Machine Set Up Operator Relationship Specialty Start Date End Date Jessica Man APRN [address] [place] [address] PCP - General 02/24/21 Mary Lim APRN [address] [place] [address] Referring Physician Gastroenterology 05/11/25 documented as of this encounter
--- OUTSIDE RECORDS SUMMARY | 2025-07-10 12:40 | XMS_ITS | Encounter Summary ---
Author Organization [employer] ([place], [place], [place], [place]) Address [address] [place] [address] Care Team Providers Care Filenet Admin Name Role Phone Unavailable Primary Care Provider Unavailabl e Encounter Details Date Type Department Care Team (Late st Contact Info) Description 11/05/[address] [facility] Family Medicine [facility] [place] [address] ProviderHugh MD [address] [place] [address] Social History Tobacco Use Types Packs/Day [...] Hugh Mccollum MD - 11/05/2018 6:36 PM BLACK OXIDE OPERATOR [address] , [place] [address] Patient Copy Patient Information: Name: CHARLES JASMINE Current Date: 11/05/2018 18:36:54 : 1970 Patient Address: [address] [place] [address] SINDI AYALA [address] Patient Attending Physician: YARI CHACKO MD-KATI Primary Care Provider: SHERINE BLEVINS RN-[facility] Primary Care Provider Discharge Diagnosis: Weight on Admission: 191 lb, 0 oz Comment: Follow-up Instructions: With: Address: When: JORDI IBANEZ [address], [place] [address] Business (1) Within 1 month [...] 09/24/2002 Document Revised: 05/28/2017 Document Reviewed: 02/14/2016 [employer] Patient Education ? 2017 [employer] [...] you are awake and alert. ??? Take hhql-mpv-[id number] and prescription medicines only as told by [...] 07/21/2014 Document Revised: 03/04/2017 Document Reviewed: 01/19/2017 [employer] Interactive Patient Education ? 2017 [employer] Radial Site Care Introduction Refer to [...] 04/18/2006 Document Revised: 03/07/2017 Document Reviewed: 03/03/2014 [employer] Interactive Patient Education ? 2017 [employer] CIGARETTE SMOKING: The facts are clear, cigarette smoking will shorten your life. Smoking can cause many illnesses along the way. As a healthcare provider, we recommend that you stop smoking. Assistance with quitting is available by contacting 0-386-DABH-NOW. This is a free resource providing counseling, [...] computer, smartphone, or tablet. Just go to [employer] to get started. Questions? Call . [facility] would like to thank you for allowing us to assist you with your healthcare needs. MITALI Mason CONNIE SUE, (or inside outside sales representative) have received the above patient education materials/instructions and have verbalized understanding: Patient Signature _ Date/Time Patient Bus System Operator Signature (if needed) Date/Time Clinician/Hospital Bus System Operator Signature (if needed) Date/Time documented in this encounter Plan of Treatment Not on file documented as of this encounter Visit Diagnoses Not on filedocumented in this encounter
--- OUTSIDE RECORDS SUMMARY | 2025-07-10 12:40 | XMS_ITS | Encounter Summary ---
Author Organization Healthcare Address [address] [place] [address] Care Team Providers Care Vault Manager Name Role Phone Jessica Man SAIL FINISHER HAND Primary Care Provider Mary Lim SAIL FINISHER HAND Unavailable [phone] Encounter Details Date Type Department Care Team (Late st Contact Info) Description 06/16/2025 Telephone [place] [facility] [address], 1st [place] [address] [facility], Physician, [address] [place] [address] Social History Tobacco Use Types Packs/Day Years [...] Description 07/22/2025 3:40 PM EDT Office Visit [facility] Endocrinology [address] [place] [address] Silvia Lewis, SAIL FINISHER HAND [address] [place] [address] 08/04/2025 8:30 AM EDT Clinical Support [facility] Transplant Center [address] [place] [address] 08/04/2025 9:00 AM EDT Appointment [facility] Radiology [address] [place] [address] 08/04/2025 9:45 AM EDT Appointment [facility] Radiology [address], 1st [place] [address] 08/04/2025 10:00 AM EDT Clinical Support [facility] Transplant Center [address] [place] [address] Lurdes Mahoney, RD CH - CLINICAL NUTRITION [address] [place] [address] 08/04/2025 11:00 AM EDT Office Visit [facility] Transplant Center [address] [place] [address] Lily Dickinson MD [address] [place] [address] 08/04/2025 11:30 AM EDT Social Work [facility] Transplant Center [address] [facility] [address] [place] [address] [place] [address] 08/04/2025 2:30 PM EDT Appointment [facility] [address] [place] [address] 08/04/2025 3:00 PM EDT Appointment [facility] Pulmonary Function Testing [address] [place] [address] 11/02/2025 11:00 AM EST Office Visit [place] [facility] Medicine [facility]ties [address], 2nd [place] [address] Raman Chang, PA [address] [place] [address] documented as of this encounter [...] documented as of this encounter Care Teams Vault Manager Relationship Specialty Start Date End Date Jessica Man APRN [address] [place] [address] PCP - General 02/24/21 Mary Lim APRN [address] [place] [address] Referring Physician Gastroenterology 05/11/25 documented as of this encounter
--- OUTSIDE RECORDS SUMMARY | 2025-07-10 12:40 | XMS_ITS | Encounter Summary ---
Author Organization Healthcare Address [address] [place] [address] Care Team Providers Care Maint Mechanic Name Role Phone Jessica Man PODIATRIST Primary Care Provider Mary Lim PODIATRIST Unavailable [phone] Reason for Visit * Reason Onset Date Comments Prior-authorization/insurance Verification 06/02 Encounter Details Date Type Department Care Team (Late st Contact Info) Description 06/02/2025 Telephone [facility] Endocrinology [address] [place] [address] Silvia Adrian, PODIATRIST [address] [facility] [address] [place] [address] Prior-authorization/in surance Verification Social History [...] Description 07/22/2025 3:40 PM EDT Office Visit [facility] Endocrinology [address] [place] [address] Silvia Adrian, PODIATRIST [address] [facility] [address] [place] [address] 08/04/2025 8:30 AM EDT Clinical Support [facility] Transplant Center [address] [facility] [address] [place] [address] 08/04/2025 9:00 AM EDT Appointment [facility] Radiology [address] [place] [address] 08/04/2025 9:45 AM EDT Appointment [facility] Radiology [address], 1st [place] [address] 08/04/2025 10:00 AM EDT Clinical Support [facility] Transplant Center [address] [place] [address] CH - CLINICAL NUTRITION [address] [place] [address] 08/04/2025 11:00 AM EDT Office Visit [facility] Transplant [facility] [address] [facility] [address] [place] [address] Lily Dickinson MD [address] [facility] [address] [place] [address] 08/04/2025 11:30 AM EDT Social Work [facility] Transplant Center [address] [address] Elaine Banerjee [place], [place] [id number] 08/04/2025 2:30 PM EDT Appointment [facility]iology [address] [place] [address] 08/04/2025 3:00 PM EDT Appointment [facility] Pulmonary Function Testing [address] [place] [address] 11/02/2025 11:00 AM EST Office Visit [facility] Medicine Specialties [address] 2nd [place] [address] Raman Chang PA [address] [address] documented as of this encounter [...] documented as of this encounter Care Teams Maint Mechanic Relationship Specialty Start Date End Date Jessica Man, NGUYỄN [address] [place] [address] PCP - General 02/24/21 Mary Lim APRN [address] [place] [address] Referring Physician Gastroenterology 05/11/25 documented as of this encounter
--- OUTSIDE RECORDS SUMMARY | 2025-07-10 12:40 | XMS_ITS | Encounter Summary ---
Author Organization Healthcare Address [address] [place] [address] Care Team Providers Care Deep Fat Cook Fry Name Role Phone Man, Jessica Khoury CONTACT PERSON Primary Care Provider [phone] Mary Lim CONTACT PERSON Unavailable [phone] Encounter Details Date Type Department Care Team [...] Visit [facility] Endocrinology [address] [place] [address] Silvia Lewis, CONTACT PERSON [address] [place] [address] 08/04/2025 8:30 AM EDT Clinical Support [facility] Transplant Center [address] [place] [address] 08/04/2025 9:00 AM EDT Appointment [facility] Radiology [address] [place] [address] 08/04/2025 9:45 AM EDT Appointment [facility] Radiology [address], 1[address] [place] [address] 08/04/2025 10:00 AM EDT Clinical Support [facility] Transplant [place] [address] [place] [address] CH - CLINICAL NUTRITION [address] [place] [address] 08/04/2025 11:00 AM EDT Office Visit [facility] Transplant [place] [address] [place] [address] Lily Dickinson MD [address] [place] [address] 08/04/2025 11:30 AM EDT Social Work [facility] Transplant [place] [address] [facility] [address] [place] [address] [place] [address] 08/04/2025 2:30 PM EDT Appointment [facility] Radiology [address] [place] [address] 08/04/2025 3:00 PM EDT Appointment [facility] Pulmonary Function Testing [address] [place] [address] 11/02/2025 11:00 AM EST Office Visit [facility] Medicine Specialties [address], 2nd [place] [address] Raman Chang, PA [address] [facility] [address] [place] [address] documented as of this encounter Visit Diagnoses [...] documented as of this encounter Care Teams Deep Fat Cook Fry Relationship Specialty Start Date End Date Jessica Man APRN [address] [place] [address] PCP - General 02/24/21 Mary Lim APRN [address] [place] [address] Referring Physician Gastroenterology 05/11/25 documented as of this encounter
--- OUTSIDE RECORDS SUMMARY | 2025-07-10 12:40 | XMS_ITS | Encounter Summary ---
Author Organization Healthcare Address [address] [place] [address] Care Team Providers Care Blueprint Reader Name Role Phone Jessica Man BLADE BONER Primary Care Provider Mary Lim BLADE BONER Unavailable [phone] Encounter Details Date Type Department Care Team (Late Contact Info) Description 05/25/2025 Orders Only External Location [address] [place] [phone] Provider, External Social History Tobacco Use Types [...] EDT Office Visit [facility] End[facility]ology [address] [place] [address] Silvia Lewis S, BLADE BONER [address] [place] [address] 08/04/2025 8:30 AM EDT Clinical Support [facility] Transplant [place] [address] [place] [address] 08/04/2025 9:[address] [facility] Radiology [address] [place] [address] 08/04/2025 9:[address] [facility] Radiology [address], 1[address] [place] [address] 08/04/2025 10:00 AM EDT Clinical Support [facility] Transplant [place] [address] [facility] [address] [place] [address] CH - CLINICAL NUTRITION [address] [place] [address] 08/04/2025 11:00 AM EDT Office Visit [facility] Transplant [place] [address] [place] [address] Lily Dickinson MD [address] [facility] [address] [place] [address] 08/04/2025 11:30 AM EDT Social Work [facility] Transplant [place] [address] [facility] [address] [place] [address] [place] [address] 08/04/2025 2:30 PM EDT Appointment [facility]iology [address] [place] [address] 08/04/2025 3:00 PM EDT Appointment [facility] Pulmonary Function Testing [address] [place] [address] 11/02/2025 11:00 AM EST Office Visit [place] [facility] Medicine Specialties [address] [place] [address] Raman Chang PA [address] [place] [address] documented as of this encounter [...] documented as of this encounter Care Teams Blueprint Reader Relationship Specialty Start Date End Date Jessica Man APRN [address] [place] [address] PCP - General 02/24/21 Mary Lim APRN [address] [place] [address] Referring Physician Gastroenterology 05/11/25 documented as of this encounter
--- OUTSIDE RECORDS SUMMARY | 2025-07-10 12:40 | XMS_ITS | Encounter Summary ---
Author Organization [employer] ([place], [place], [place], [place]) Address [address] [place] [address] Care Team Providers Care Veneer Manufacturer Name Role Phone Unavailable Primary Care Provider Unavailabl e Encounter Details Date Type Department Care Team (Late st Contact Info) Description 11/05/2018 Transcribed Document [facility] [place] [facility] [place] [address] ProviderHugh MD [address] [place], [place] [id number] Social History Tobacco Use Types Packs/Day Years [...] - Hugh ProviderMD - 11/05/2018 5:32 PM WEB EDITOR Discharge Instructions Entered On: 11/05/2018 17:34 EST [...]
--- OUTSIDE RECORDS SUMMARY | 2025-07-10 12:41 | XMS_ITS | Encounter Summary ---
Author Organization [facility] Address [address] [place] [address] Care Team Providers Care Education Counselor Name Role Phone Jessica Man MENTAL HEALTH CONSULTANT Primary Care Provider [phone] Mary Lim MENTAL HEALTH CONSULTANT Unavailable [phone] Reason for Referral * Consultation (Routine) - Closed Specialty Diagnoses / Procedures Referred By Contshiloh t Referred To Contact Transplant Diagnoses End-stage liver disease (CMS/HCC) Donnie Jordan MD [address] [address] Phone: tel: fax: [facility] [address] [address] Phone: tel: fax: Referral ID Status Reason Start Date Expiration Date V isits Requested Visits Authorized [id number] Closed Specialty Services Required 05/26/2025 11/25/2026 1 1 Reason for Visit * Reason Comments Appointment Scheduling Encounter Details Date Type Department Care Team (Late st Contact Info) Description 05/26/2025 Telephone [facility] [address] [address] Edda Méndez [place] [phone] Appointment (Scheduling) Social History Tobacco Use Types [...] to clinic. New Patient materials attached to [employer]. Notified referring - left voicemail message for Shilpi Henry. documented in this encounter Plan of Treatment Upcoming Encounters Date Type Department Care Team (Late st Contact Info) Description 07/22/2025 3:40 PM EDT Office Visit [facility] Endocrinology [address] [place] [phone] Silvia Lewis, MENTAL HEALTH CONSULTANT [address] [place] [phone] 08/04/2025 8:30 AM EDT Clinical Support [facility] [address] [facility] [address] [place] [phone] 08/04/2025 9:00 AM EDT Appointment [facility] [address] [place] [address] 08/04/2025 9:45 AM EDT Appointment [facility] [address], 1[address] [place] [address] 08/04/2025 10:00 AM EDT Clinical Support [facility] [address] [place] [address] [address] Lurdes Mahoney, SINDI CH - CLINICAL NUTRITION [address] [place] [address] 08/04/2025 11:00 AM EDT Office Visit [facility] [address] [address] Lily Dickinson MD [address] [address] 08/04/2025 11:30 AM EDT Social Work [facility] [address] [address] [place] [address] 08/04/2025 2:30 PM EDT Appointment [facility] [address] [place] [address] 08/04/2025 3:00 PM EDT Appointment [facility] Pulmonary Function Testing [address] [place] [address] 11/02/2025 11:00 AM EST Office Visit [facility] [address], 2nd [place] [address] Raman Chang PA [address] [place] [address] Pending Results Name Type Priority Associated Diagnoses [...] Urine Negative Negative 06/25/2025 11:46 AM EDT [facility] Urine Urine specimen obtained by clean catch procedure / Unknown Non-blood Collection / Unknown 06/25/2025 7:32 AM EDT 06/25/2025 8:34 AM EDT Narrative [facility] - 06/25/2025 11:46 AM EDT The correlation between urine and serum ethanol concentration is highly variable. Test performed by Gas Chromatography at the [facility]. This test was developed and its performance characteristics determined by [facility]. It has not been cleared or approved by the FDA.The laboratory is regulated under CLIA as qualified to perform high-complexity testing. This test is used for clinical purposes only. Donnie Jordan MD LAB URINE ORDERABLES Final Resul t [facility] [address] [place] [address] * (ABNORMAL) Comprehensive Urine Drug Screening, Qualitative Assay, >= 27 Drug Classes (57:32 AM EDT) Acetaminophen Negative Negative 06/30/2025 11:34 AM EDT [facility] Alprazolam Negative Negative 06/30/2025 11:34 AM EDT [facility] Amantadine Negative Negative 06/30/2025 11:34 AM EDT [facility] Amitriptyline Negative Negative 06/30/2025 11:34 AM EDT [facility] Amphetamine Negative Negative 06/30/2025 11:34 AM EDT [facility] Atenolol Negative Negative 06/30/2025 11:34 AM EDT [facility] Benzoylecgonine Negative Negative 11:34 AM EDT [facility] Bisoprolol Negative Negative 06/30/2025 11:34 AM EDT [facility] Bupropion Negative Negative 06/30/2025 11:34 AM EDT [facility] Butalbital Negative Negative 06/30/2025 11:34 AM EDT [facility] Carbamazepine Negative Negative 06/30/2025 11:34 AM EDT [facility] Carisoprodol Negative Negative 06/30/2025 11:34 AM EDT [facility] Chlorpheniramine Negative Negative 06/30/20 11:34 AM EDT [facility] Citalopram Negative Negative 06/30/2025 11:34 AM EDT [facility] Clindamycin Negative Negative 06/30/2025 11:34 AM EDT [facility] Clonidine Negative Negative 06/30/2025 11:34 AM EDT [facility] Clopidogrel / Ticlopidine Negative Negative 06/30/2025 11:34 AM EDT [facility] Cocaethylene Negative Negative 06/30/2025 11:34 AM EDT [facility] Cocaine Negative Negative 06/30/2025 11:34 AM EDT [facility] Codeine Negative Negative 06/30/2025 11:34 AM EDT [facility] Cyclobenzaprine Negative Negative 11:34 AM EDT [facility] Desvenlafaxine Negative Negative 06/30/2025 11:34 AM EDT [facility] Dextromethorphan Negative Negative 06/30/20 11:34 AM EDT [facility] Diazepam Negative Negative 06/30/2025 11:34 AM EDT [facility] Diltiazem Negative Negative 06/30/2025 11:34 AM EDT [facility] Diphenhydramine Negative Negative 11:34 AM EDT [facility] Doxepine Negative Negative 06/30/2025 11:34 AM EDT [facility] Doxylamine Negative Negative 06/30/2025 11:34 AM EDT [facility] EDDP-Methadone metabolite Negative Negative 06/30/2025 11:34 AM EDT [facility] Fentanyl Negative Negative 06/30/2025 11:34 AM EDT [facility] Fluconazole Negative Negative 06/30/2025 11:34 AM EDT [facility] Fluoxetine Negative Negative 06/30/2025 11:34 AM EDT [facility] Guaifenesin Negative Negative 06/30/2025 11:34 AM EDT [facility] Haloperidol Negative Negative 06/30/2025 11:34 AM EDT [facility] Heroin/6-TERRY Negative Negative 06/30/2025 11:34 AM EDT [facility] Hydrocodone Negative Negative 06/30/2025 11:34 AM EDT [facility] Hydroxyzine / Cetirizine metabolite Positive(A) Negative 06/30/2025 11:34 AM EDT [facility] Ibuprofen Negative Negative 06/30/2025 11:34 AM EDT [facility] Imipramine Negative Negative 06/30/2025 11:34 AM EDT [facility] Ketamine Negative Negative 06/30/2025 11:34 AM EDT [facility] Labetolol Negative Negative 06/30/2025 11:34 AM EDT [facility] Lamotrigine Negative Negative 06/30/2025 11:34 AM EDT [facility] Levetiracetam Negative Negative 06/30/2025 11:34 AM EDT [facility] Lidocaine Positive(A) Negative 06/30/2025 11:34 AM EDT [facility] MDA Negative Negative 06/30/2025 11:34 AM EDT [facility] MDMA Negative Negative 06/30/2025 11:34 AM EDT [facility] Memantine Negative Negative 06/30/2025 11:34 AM EDT [facility] Meperidine Negative Negative 06/30/2025 11:34 AM EDT [facility] Meprobamate Negative Negative 06/30/2025 11:34 AM EDT [facility] Metaxalone Negative Negative 06/30/2025 11:34 AM EDT [facility] Methamphetamine Negative Negative 11:34 AM EDT [facility] Methocarbamol Negative Negative 06/30/2025 11:34 AM EDT [facility] Methylecgonine Negative Negative 06/30/2025 11:34 AM EDT [facility] Metoclopramide Negative Negative 06/30/2025 11:34 AM EDT [facility] Metoprolol Negative Negative 06/30/2025 11:34 AM EDT [facility] Metronidazole Negative Negative 06/30/2025 11:34 AM EDT [facility] Midazolam Negative Negative 06/30/2025 11:34 AM EDT [facility] Midazolam Metabolite Negative Negative 06/30/2025 11:34 AM EDT [facility] Mirtazapine Negative Negative 06/30/2025 11:34 AM EDT [facility] Misc Test Result Negative Negative 06/30/20 11:34 AM EDT [facility] Naproxen Negative Negative 06/30/2025 11:34 AM EDT [facility] Nefazodone Negative Negative 06/30/2025 11:34 AM EDT [facility] Norfentanyl Negative Negative 06/30/2025 11:34 AM EDT [facility] Nortriptyline Negative Negative 06/30/2025 11:34 AM EDT [facility] Ordanstron Negative Negative 06/30/2025 11:34 AM EDT [facility] Oxcarbazepine Negative Negative 06/30/2025 11:34 AM EDT [facility] Oxycodone Negative Negative 06/30/2025 11:34 AM EDT [facility] Paroxethine Negative Negative 06/30/2025 11:34 AM EDT [facility] Phenobarbital Negative Negative 06/30/2025 11:34 AM EDT [facility] Phentermine Negative Negative 06/30/2025 11:34 AM EDT [facility] Phenytoin Negative Negative 06/30/2025 11:34 AM EDT [facility] Primidone Negative Negative 06/30/2025 11:34 AM EDT [facility] Promethazine Negative Negative 06/30/2025 11:34 AM EDT [facility] Propofol Negative Negative 06/30/2025 11:34 AM EDT [facility] Propranolol Negative Negative 06/30/2025 11:34 AM EDT [facility] Quetiapine Negative Negative 06/30/2025 11:34 AM EDT [facility] Quinine Negative Negative 06/30/2025 11:34 AM EDT [facility] Rantidine Negative Negative 06/30/2025 11:34 AM EDT [facility] Sertraline Negative Negative 06/30/2025 11:34 AM EDT [facility] Spironolactone Negative Negative 06/30/2025 11:34 AM EDT [facility] Tizanidine Negative Negative 06/30/2025 11:34 AM EDT [facility] Topiramate Negative Negative 06/30/2025 11:34 AM EDT [facility] Tramadol Negative Negative 06/30/2025 11:34 AM EDT [facility] Trazadone/ Trazadone metabolite Negative Negative 06/30/2025 11:34 AM EDT [facility] Trimethoprim Negative Negative 06/30/2025 11:34 AM EDT [facility] Valproic Acid Negative Negative 06/30/2025 11:34 AM EDT [facility] Venlafaxine Negative Negative 06/30/2025 11:34 AM EDT [facility] Verapamil Negative Negative 06/30/2025 11:34 AM EDT [facility] Zolpidem Negative Negative 06/30/2025 11:34 AM EDT [facility] Xylazine Negative Negative 06/30/2025 11:34 AM EDT [facility] Urine Urine specimen obtained by clean catch procedure / Unknown Non-blood Collection / Unknown 06/25/2025 7:32 AM EDT 06/25/2025 8:34 AM EDT us Donnie Jordan MD LAB URINE ORDERABLES Final Resul t Performing Organization Address [facility] Co de Phone Number [facility] [address] [place] [address] * (ABNORMAL) Hepatitis A Antibody IgG (06/25/2025 7:08 AM EDT) Hepatitis A Antibody IgG Positive(A ) Negative 06/25/2025 9:15 AM EDT [facility] Blood Venous blood specimen / Unknown Venipuncture / Unknown 06/25/2025 7:08 AM EDT 06/25/2025 7:47 AM EDT us Donnie Jordan MD LAB BLOOD ORDERABLES Final Resul t Performing Organization Address [facility] Co de Phone Number [facility] [address] [place] [address] * HEPATITIS B SURFACE ANTIBODY, QUANTITATIVE (06/25/2025 7:08 AM EDT) Hepatitis B Surface Antibody, Quantitative <8.00 NonReactiv e: <8, Grayzone: 8 - <12, Reactive: >= 12 mIU/mL 06/25/2025 9:15 AM EDT [facility] Comment: Nonreactive. Individual is considered not immune to HBV infection. Blood Venous blood specimen / Unknown Venipuncture / Unknown 06/25/2025 7:08 AM EDT 06/25/2025 7:47 AM EDT us Donnie Jordan MD LAB BLOOD ORDERABLES Final Resul t Performing Organization Address City/[facility] Co de Phone Number [facility] [address] [place] [address] * Hepatitis B Surface Antigen (06/25/2025 7:08 AM EDT) Hepatitis B Surf Antigen Negative Negative 06/25/2025 9:15 AM EDT [facility] Blood Venous blood specimen / Unknown Venipuncture / Unknown 06/25/2025 7:08 AM EDT 06/25/2025 7:47 AM EDT Donnie Jordan MD LAB BLOOD ORDERABLES Final Resul t Performing Organization Address City/[facility]/ZIP Co de Phone Number [facility] [address] [place] [address] * Hepatitis C Antibody (06/25/2025 7:08 AM EDT) [facility] Hepatitis C Antibody Negative Negative 06/25/2025 8:31 AM EDT [facility] Blood Venous blood specimen / Unknown Venipuncture / Unknown 06/25/2025 7:08 AM EDT 06/25/2025 7:47 AM EDT Donnie Jordan MD LAB BLOOD ORDERABLES Final Resul t Performing Organization Address [facility] Co nc Phone Number [facility] [address] [place] [address] * (ABNORMAL) Nicotine Cotinine Metabolite (06/25/2025 7:08 AM EDT) [facility] NICOTINE <5 <5 ng/mL 06/29/2025 11:14 AM EDT [facility] Cotinine 98(H) <5 ng/mL 06/29/2025 11:14 AM EDT [facility] Blood Venous blood specimen / Unknown Venipuncture / Unknown 06/25/2025 7:08 AM EDT 06/25/2025 7:47 AM EDT Narrative [facility] - 06/29/2025 11:14 AM EDT Testing performed by LC-MS/MS at the [facility]. This test was developed and its performance characteristics determined by [facility]. This assay has not been cleared by the FDA. The laboratory is regulated under CLIA as qualified to perform high-complexity testing. This test is used for clinical purposes. us Donnie Jordan MD LAB BLOOD ORDERABLES Final Resul t Performing Organization Address [facility] Co de Phone Number [facility] [address] [place] [address] * (ABNORMAL) Protime-INR (06/25/2025 7:08 AM EDT) [facility] Prothrombin Time 17.0(H) 12.0 - 14.3 sec LAB COAGULATION METHOD 06/25/2025 8:07 AM EDT [facility] INR 1.3(H) 0.9 - 1.1 LAB COAGULATION METHOD 06/25/2025 8:07 AM EDT [facility] Blood Venous blood specimen / Unknown Venipuncture / Unknown 06/25/2025 7:08 AM EDT 06/25/2025 7:47 AM EDT [facility] - 06/25/2025 8:07 AM EDT OPTIMAL INR RANGES FOR PATIENT ON ORAL ANTICOAGULANT THERAPY Prevention of venous thromboembolism INR 2.0 to 3.0 In patients with heart disease: Atrial fibrillation INR 2.0 to 3.0 Valvular heart disease INR 2.0 to 3.0 Tissue heart valves INR 2.0 to 3.0 Mechanical prosthetic valves INR 2.5 to 3.5 Prevention of recurrent SD INR 2.5 to 3.5 us Donnie Jordan MD LAB BLOOD ORDERABLES Final Resul t [facility] [address] [place] [address] * (ABNORMAL) Comprehensive metabolic panel (06/25/2025 7:08 AM EDT) [facility] Glucose, Plasma 50(LL) 74 - 99 mg/dL 06/25/2025 8:22 AM EDT [facility] BUN, Plasma 33(H) 7 - 21 mg/dL 06/25/2025 8:22 AM EDT [facility] Creatinine, Plasma 1.30(H) 0.60 - 1.10 mg/dL 06/25/2025 8:22 AM EDT [facility] BUN/Creatinine Ratio 25 06/25/2025 8:22 AM EDT [facility] Sodium, Plasma 134(L) 136 - 145 mmol/L 06/25/2025 8:22 AM EDT [facility] Potassium, Plasma 3.6 3.6 - 4.9 mmol/L 06/25/2025 8:22 AM EDT [facility] Chloride, Plasma 101 97 - 107 mmol/L 06/25/2025 8:22 AM EDT [facility] CO2, Plasma 22 22 - 29 mmol/L 06/25/2025 8:22 AM EDT [facility] Anion Gap 11 6 - 16 mmol/L 06/25/2025 8:22 AM EDT [facility] Total Calcium, Plasma 8.8(L) 8.9 - 10.2 mg/dL 06/25/2025 8:22 AM EDT [facility] Total Protein 6.8 6.3 - 7.9 g/dL 06/25/2025 8:22 AM EDT [facility] Albumin, Plasma 3.2(L) 3.5 - 5.2 g/dL 06/25/2025 8:22 AM EDT [facility] AST, Plasma 76(H) 10 - 35 U/L 06/25/2025 8:22 AM EDT [facility] ALT, Plasma 30 10 - 35 U/L 06/25/2025 8:22 AM EDT [facility] Alkaline Phosphatase, Plasma 158(H) 35 - 104 U/L 06/25/2025 8:22 AM EDT [facility] Total Bilirubin, Plasma 2.1(H) 0.2 - 1.1 mg/dL 06/25/2025 8:22 AM EDT [facility] eGFRcr 48.7 mL/min/1.7 3m*2 06/25/2025 8:22 AM EDT [facility] Comment:Reported eGFRcr in m L/min/1.73m2 is based the CKD-EPI 2020 equation that does not use a race coefficient. Blood Venous blood specimen / Unknown Venipuncture / Unknown 06/25/2025 7:08 AM EDT 06/25/2025 7:47 AM EDT us Donnie Jordan MD LAB BLOOD ORDERABLES Final Resul t [facility] [address] [place] [address] * (ABNORMAL) Hemogram (CBC) (06/25/2025 7:08 AM EDT) WBC Count 10.55(H) 3.70 - 10.30 10*3/uL LAB HEMATOLOGY METHOD 06/25/2025 8:04 AM EDT [facility] RBC Count 3.34(L) 3.90 - 5.20 10*6/uL LAB HEMATOLOGY METHOD 06/25/2025 8:04 AM EDT [facility] HGB 9.2(L) 11.2 - 15.7 g/dL LAB HEMATOLOGY METHOD 06/25/2025 8:04 AM EDT [facility] HCT 27.9(L) 34.0 - 45.0 % LAB HEMATOLOGY METHOD 06/25/2025 8:04 AM EDT [facility] Platelet Count 173 155 - 369 10*3/uL LAB HEMATOLOGY METHOD 06/25/2025 8:04 AM EDT [facility] MCV 84 79 - 98 fL LAB HEMATOLOGY METHOD 06/25/2025 8:04 AM EDT [facility] MCH 27.5 26.0 - 32.0 pg LAB HEMATOLOGY METHOD 06/25/2025 8:04 AM EDT [facility] MCHC 33.0 30.7 - 35.5 g/dL LAB HEMATOLOGY METHOD 06/25/2025 8:04 AM EDT [facility] RDW 17.8(H) 11.5 - 14.5 % LAB HEMATOLOGY METHOD 06/25/2025 8:04 AM EDT [facility] MPV 9.6 8.8 - 12.5 fL LAB HEMATOLOGY METHOD 06/25/2025 8:04 AM EDT [facility] nRBC 0.0 <=0.0 per 100 WBCs LAB HEMATOLOGY METHOD 06/25/2025 8:04 AM EDT [facility] Blood Venous blood specimen / Unknown Venipuncture / Unknown 06/25/2025 7:08 AM EDT 06/25/2025 7:54 AM EDT us Donnie Jordan MD LAB BLOOD ORDERABLES Final Resul t [facility] [address] [place] [address] * Alpha fetoprotein, serum (06/25/2025 7:08 AM EDT) Alpha Fetoprotein, Serum <2.3 <10.0 ng/mL 06/25/2025 8:23 AM EDT [facility] Blood Venous blood specimen / Unknown Venipuncture / Unknown 06/25/2025 7:08 AM EDT 06/25/2025 7:47 AM EDT Narrative [facility] - 06/25/2025 8:23 AM EDT Performed by José Manuel electrochemiluminescent immunoassay which is traceable to the 1st AFP IRP WHO Reference standard 72/255. Results obtained with different test methods or kits cannot be used interchangeably. us Donnie Jordan MD LAB BLOOD ORDERABLES Final Resul t Performing Organization Address City/[facility]/ZIP Co de Phone Number [facility] [address] [place] [address] * ABO/Rh (06/25/2025 7:08 AM EDT) ABO/Rh O Positive 06/25/2025 7:04 AM EDT BLO[facility] BANK Blood Venous blood specimen / Unknown Venipuncture / Unknown 06/25/2025 7:08 AM EDT 06/25/2025 7:45 AM EDT us Donnie Jordan MD LAB BLOOD BANK TEST ORDERABLES F inal Result Performing Organization Address [facility] Co de Phone Number BLOOD BANK [address] [place] [address] documented in this encounter Visit Diagnoses Diagnosis [...] documented as of this encounter Care Teams Education Counselor Relationship Specialty Start Date End Date Jessica Man APRN [address] [place] [address] PCP - General 02/24/21 Mary Lim APRN [address] [place] [address] Referring Physician Gastroenterology 05/11/25 documented as of this encounter
[2025-07-10 13:33] LABS: Hematocrit 26.6 % (37.0-47.0); Hemoglobin 8.8 g/dL (12.2-16.2); Immature Granulocytes % 0.4 %; Mean Corpuscular HGB Conc 33.1 g/dL (31.8-35.4); Mean Corpuscular Hemoglobin 27.7 pg (27.0-31.2); Mean Corpuscular Volume 83.6 fl (81-99); Nucleated Red Blood Cells % 0 %; Platelet Count 110 K/mm3 (142-424); Red Blood Count 3.18 M/mm3 (4.20-5.40); Red Cell Distribution Width-SD 52.4 fL; White Blood Count 11.4 K/mm3 (4.8-10.8)
[2025-07-10 13:39] LABS: Alanine Aminotransferase 51 U/L (12-78); Albumin Level 3.0 g/dl (3.5-5.0); Albumin/Globulin Ratio 0.9 (1.1-1.8); Alkaline Phosphatase 195 U/L (38-126); Anion Gap 9.4 mEq/L (5-15); Aspartate Amino Transferase 133 U/L (14-36); Bilirubin,Total 3.5 mg/dl (0.2-1.3); Blood Urea Nitrogen 44 mg/dl (7-17); Calcium 7.9 mg/dl (8.4-10.2); Carbon Dioxide 26 mmol/L (22.0-30.0); Chloride 98 mmol/L (98-107); Creatinine Clearance Estimated 44 mL/min (50-200); Creatinine,Serum 2.10 mg/dl (0.52-1.04); Estimated Glomerular Filt Rate 24 ml/min (>60); GFR (African American) 30 ML/MIN (>60); Globulin 3.5 g/dL (1.3-3.2); Glucose 134 mg/dl (74-100); INR 1.40 (0.9-1.1); Potassium 3.4 mmoL/L (3.5-5.1); Prothrombin Time 15.2 seconds (10.1-12.5); Sodium 130 mmol/L (136-145); Total Protein,Serum 6.5 g/dl (6.3-8.2)
--- NOTE | 2025-07-10 13:46 | PC.NURSE ---
JAGDISH GRANT ON PHONE WITH MAGDIEL
[2025-07-10 14:00] VITALS: BP 105/56; PULSE 92; O2SAT 97
--- NOTE | 2025-07-10 14:05 | ED_ITS ---
Discharge Plan Disposition Patient Disposition: Xfer Other Condition: Fair Prescriptions Prescriptions: No Action hydrochlorothiazide 25 mg tablet 25 mg PO DAILY 30 Days Qty: 30 Patient Comments: TAKE 1 TABLET ONCE A DAY duloxetine 60 mg capsule,delayed release(DR/EC) 60 mg PO DAILY 30 Days Qty: 60 Patient Comments: TAKE 1 CAPSULE 2 TIMES A DAY aspirin 81 mg tablet,delayed release (DR/EC) 81 mg PO DAILY 30 Days Qty: 30 Patient Comments: TAKE 1 TABLET ONCE A DAY fenofibrate nanocrystallized 145 mg tablet 145 mg PO DAILY 30 Days Qty: 30 Patient Comments: TAKE 1 TABLET ONCE A DAY omeprazole 40 mg capsule,delayed release(DR/EC) 40 mg PO DAILY Qty: 30 Patient Comments: TAKE 1 CAPSULE ONCE A DAY cyclobenzaprine 10 mg tablet 10 mg PO TID PRN (Reason: pain) Qty: 90 Patient Comments: TAKE 1 TABLET 3 TIMES A DAY Linzess 290 mcg capsule PO DAILY PRN Patient Comments: TAKE 1 CAPSULE 1 TIME EACH DAY (DME) pen needle, diabetic [BD Ultra-Fine Jazlyn Pen Needle] 32 gauge x 5/32 needle See Rx Instructions .ROUTE .MEDSUPPLY Qty: 1200 Patient Comments: USE TO INJECT INSULIN 4 TIMES EACH DAY Rx Instructions: As directed Januvia 50 mg tablet PO DAILY Patient Comments: TAKE 1 TABLET 1 TIME EACH DAY rosuvastatin 20 mg tablet PO DAILY Patient Comments: TAKE 1 TABLET 1 TIME EACH DAY hydroxyzine HCl 25 mg tablet PO ONCE Patient Comments: TAKE 1 TABLET 1 TIME EACH DAY (DME) OneTouch Ultra Test Strip See Rx Instructions .ROUTE .MEDSUPPLY Qty: 10 Patient Comments: USE TO CHECK BLOOD SUGAR 3 TIMES EACH DAY Rx Instructions: As directed lamotrigine 150 mg tablet PO DAILY Patient Comments: TAKE 1 TABLET 1 TIME EACH DAY IN THE MORNING (DME) Dexcom G7 Sensor Device See Rx Instructions .ROUTE .MEDSUPPLY Qty: 1 Patient Comments: USE TO MONITOR BLOOD SUGAR. REPLACE EVERY 10 DAYS Rx Instructions: As directed insulin lispro 100 unit/mL insulin pen SQ DAILY Patient Comments: INJECT 6 UNITS UNDER THE SKIN 3 TIMES EACH DAY BEFORE MEALS. FOR EACH 30 UNITS THAT BLOOD SUGAR IS OVER 150, INCREASE DOSE BY 1 UNIT. DO NOT INJECT MORE THAN 60 UNITS IN 1 DAY. gabapentin 800 mg tablet PO DAILY Patient Comments: TAKE 1 TABLET 4 TIMES EACH DAY insulin glargine [Lantus Solostar U-100 Insulin] 100 unit/mL (3 mL) insulin pen SQ DAILY Patient Comments: INJECT 34 UNITS UNDER THE SKIN 1 TIME EACH DAY IN THE EVENING PLUS TITRATION ADVISED. MAX DOSE OF 50 UNITS A DAY. (DME) Dexcom G7 Retail Marketing Manager Misc See Rx Instructions .ROUTE .MEDSUPPLY Qty: 1 Patient Comments: USE TO MONITOR BLOOD SUGAR DIRECTED Rx Instructions: As directed (DME) Dexcom G6 Transmitter Device See Rx Instructions .ROUTE .MEDSUPPLY Qty: 1 Patient Comments: USU TO MEASURE BLOOD SUGAR DIRECTED. REPLACE AFTER 90 DAYS. Rx Instructions: As directed nicotine 21 mg/24 hr patch 24 hour 1 patch topical DAILY Patient Comments: APPLY 1 PATCH ONTO THE SKIN 1 TIME EACH DAY DIRECTED. REMOVE BEFORE APPLYING NEXT PATCH. ibuprofen 800 mg tablet PO PRN Patient Comments: TAKE 1 TABLET 3 TIMES EACH DAY WITH FOOD NEEDED FOR PAIN Clenpiq 10 mg-3.5 gram- 12 gram/175 mL solution 175 ml PO DAILY Qty: 350 0RF Rx Instructions: take first dose at 5-9PM evening before colonoscopy; 2nd dose the next day approximately 5 hrs before colonoscopy ciprofloxacin HCl 750 mg tablet 750 mg PO DAILY 7 Days Qty: 7 0RF insulin glargine U-300 conc 300 UNIT/ML insulin pen 8 units SQ BID 30 Days Qty: 1 0RF glucagon HCl 1 MG recon soln 1 mg IJ NEEDED PRN (Reason: Blood Sugar - Low) Qty: 1 0RF Rx Instructions: Use as directed for hypoglycemic emergency. cefdinir 300 mg capsule 300 mg PO BID 5 Days Qty: 10 0RF Referrals Follow up/Referrals: Jessica Man [Primary Care Provider, Medical] - See instructions Clinical Impressions Clinical Impression: SBP (spontaneous bacterial peritonitis), AAT (lcreg-4-cjtdprwtkai) deficiency, Decompensated cirrhosis, ANH (acute kidney injury) Stand Alone Forms Stand Alone Forms: Transfer Record - ED Instructions Patient Instructions: DI for Acute Abdominal Pain Print Language Print Language: Greenlandic Discharge ED Provider: Peter Johnson General Adult HPI <Peter Johnson MD - Last Filed: 07/11/25 07:01> General Chief complaint: Abdominal Pain Stated complaint: abdominal pain Time Seen by Provider: 07/10/25 13:05 Mode of Arrival: Ambulatory Source of Information: Patient Description of Symptoms (Recalled from ER Triage Doc. by RN): pt presents to ED for admission to hospital for SBP. pt was told last night that she needed to be admitted but pt wanted to go home and get stuff together. pt was seen in ED last night and had paracentesis perfromed and 3.5L was drained off History of Present Illness HPI narrative: Patient is a 55-year-old female returning today after being diagnosed last night with SBP for admission. 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 She was initially evaluated by [facility] transplant team who are working her up and had planned to do a TIPS procedure on her however she lost her insurance and has been unable to follow-up. Last night she had 5 L taken off and she had 2212 total nucleated cells with 81% PMNs demonstrating 1792 total PMNs. Also had 3000 red blood cells and accounting for the RBCs her corrected PMN count was 1780. She was given 2 g of Rocephin on 07/09/2025 at 7 PM. Patient was advised to be admitted in the hospital however she left AMA. She is back and states that she would like to be admitted she denies any abdominal pain changes in mental status bleeding etc. Related Data Home Medications ?Medication ?Instructions ?Recorded ?Confirmed aspirin 81 mg tablet,delayed 81 mg PO DAILY preventiti ve 30 01/19/19 02/25/24 release days #30 tabs duloxetine 60 mg capsule,delayed 60 mg PO DAILY Nausea & vomiting 01/19/19 02/25/24 release 30 days #60 caps fenofibrate nanocrystallized 145 145 mg PO DAILY Odalys sterol 30 01/19/19 02/25/24 mg tablet days #30 tabs hydrochlorothiazide 25 mg tablet 25 mg PO DAILY Fluid 30 days #30 01/19/19 02/25/24 tabs cyclobenzaprine 10 mg tablet 10 mg PO TID PRN pain #90 tabs 05/27/19 02/25/24 omeprazole 40 mg capsule,delayed 40 mg PO DAILY stomac h #30 caps 05/27/19 02/25/24 release blood sugar diagnostic (OneTouch #10 ea 02/17/2402/24 Ultra Test strips) blood-glucose sensor (Dexcom G7 #1 ea 02/17/24 4 Sensor device) blood-glucose transmitter (Dexcom #1 ea 02/17/2402/24 G6 Transmitter device) blood-glucose,immigration investigator,cont #1 ea 02/17/24 02/25/24 (Dexcom G7 Retail Marketing Manager) gabapentin 800 mg tablet mg PO DAILY 02/17/24 4 hydroxyzine HCl 25 mg tablet mg PO ONCE 02/17/2402/24 ibuprofen 800 mg tablet mg PO PRN 02/17/24 02/25/24 insulin glargine 100 unit/mL (3 unit SQ DAILY 02/17/24 02/25/24 mL) subcutaneous pen (Lantus Solostar U-100 Insulin) insulin lispro 100 unit/mL SQ DAILY 02/17/24 02/25/24 subcutaneous pen lamotrigine 150 mg tablet mg PO DAILY 02/17/24 4 linaclotide 290 mcg capsule mcg PO DAILY PRN 02/17/24 02/25/24 (Linzess) nicotine 21 mg/24 hr daily 1 patch topical DAILY 02/1602/25/24 transdermal patch pen needle, diabetic 32 gauge x #1,200 ea 02/17/24 (BD Ultra-Fine Jazlyn Pen Needle) rosuvastatin 20 mg tablet mg PO DAILY 02/17/24 4 sitagliptin phosphate 50 mg tablet mg PO DAILY 4 02/25/24 (Januvia) Previous Rx's ?Medication ?Instructions ?Recorded glucagon HCl 1 mg solution for 1 mg IJ NEEDED PRN B lood Sugar 10/28/21 injection - Low #1 kit insulin glargine U-300 conc 300 8 units SQ BID 30 days #1 pen 10/28/21 unit/mL (1.5 mL) subcutaneous pen needle sod picosulf 10 mg-magnes 3.5 175 ml PO DAILY 2 doses #350 mL 05/05/24 gram-citric 12 gram/175 mL oral solution (Clenpiq) cefdinir 300 mg capsule 300 mg PO BID 5 days #10 cap s 02/12/25 ciprofloxacin HCl 750 mg tablet 750 mg PO DAILY 7 days #7 tabs 07/09/25 Allergies Allergy/AdvReac Type Severity Reaction Status Date / Time erythromycin base Allergy Mild Other Verified 05/25/25 15:18 empagliflozin (From Allergy Other Verified 05/25/25 15:18 Jardiance) varenicline (From Chantix) Allergy Unknown Verified 06/28/25 14:18 allergy reaction PFSH <Peter Johnson MD - Last Filed: 07/11/25 07:01> [facility] Disclaimer: The information contained in this section may have been updated after the patient was seen, as this information can be updated by other users. Medical History (Updated 07/10/25 @ 14:09 by Peter Johnson MD) PTSD (post-traumatic stress disorder) Anxiety Depression Diabetes mellitus Cirrhosis of liver without mention of alcohol Esophagus disorder Surgical History History of abdominal paracentesis History of unilateral salpingectomy History of cholecystectomy Family History Other Asthma Cancer Coronary artery disease Diabetes FHx: mental illness Heart attack Hypertension Kidney disease Stroke Social History Smoking Status: Former smoker alcohol intake: never substance use type: denies use current occupational status: other Travel in the last 8 weeks?: None caffeine: Yes Have you lived/traveled outside [place] in past 30 days?: No Contact w/someone who lives/traveled outside US past 30 days?: No Exposure to someone with infectious disease in past 14 days?: No Do you have a fever (greater than 100.4 F or 38 C)?: No Have you tested positive for COVID-19?: No Exposed to someone with COVID-19 in past 14 days?: No Do you have a sore throat?: No Do you have a cough?: No Do you have any weakness?: No Do you have any diarrhea?: No Are you experiencing any unusual bleeding?: No Do you have any muscle aches/pain?: No Do you have any abdominal pain?: Yes Are you experiencing loss of taste or smell?: No Other Medical History Have you received the Flu Vaccine for this season: No Have you received the Pneumonia Vaccine: Yes <Peter Johnson MD - Last Filed: 07/11/25 07:01> ROS Obtained: Yes All systems reviewed & no additional complaints except as documented Physical Exam <Peter Johnson MD - Last Filed: 07/11/25 07:01> General General appearance: alert and in no apparent distress Respiratory Respiratory exam: Present normal lung sounds bilaterally Cardiovascular Cardiovascular exam: Present regular rate Abdominal Exam Abdominal exam: Present soft and distention; Absent tenderness Neurological Exam Neurological exam: Present alert and oriented X3 Medical Decision Making <Peter Johnson MD - Last Filed: 07/11/25 07:01> Medical Records Screening: Per USPSTF and CDC recommendations, given the prevalence of disease in our region, it is our hospital?s policy to screen for HIV and viral Hepatitis for all patients aged 18 and over and those with ongoing risk factors. Helder Inquiry Pt receiving controlled substance: No Vital Signs: 07/10/25 12:33 07/10/25 14:00 07/10/25 15:00 Temperature 98.0 F Temperature Source Oral Pulse Rate 92 H 90 Pulse Rate [Left Radial] 96 H Respiratory Rate 19 Blood Pressure 105/56 L 111/67 Blood Pressure [Right Arm] 109/51 L Blood Pressure Mean 73 Blood Pressure Mean [Right Arm] 70 02 Sat by Pulse Oximetry 100 97 97 07/10/25 16:00 07/10/25 16:43 Temperature 98.0 F Temperature Source Pulse Rate 88 88 Pulse Rate [Left Radial] Respiratory Rate 19 Blood Pressure 108/68 L 115/75 Blood Pressure [Right Arm] Blood Pressure Mean 74 Blood Pressure Mean [Right Arm] 02 Sat by Pulse Oximetry 94 L Lab Data Lab results reviewed: Yes I reviewed the patient's lab results. Lab Results 07/10/25 12:51: WBC 11.4 H, RBC 3.18 L, Hgb 8.8 L, Hct 26.6 L, MCV 83.6, MCH 27.7, MCHC 33.1, RDW 17.0, Plt Count 110 L, MPV 9.6, Neut % (Auto) 78.6, Lymph % (Auto) 8.2 L, [place] % (Auto) 8.5, Eos % (Auto) 3.9, Baso % (Auto) 0.4, Neut # (Auto) 9.0 H, Lymph # (Auto) 0.9, [place] # (Auto) 1.0, Eos # (Auto) 0.5 H, Baso # (Auto) 0.0, PT 15.2 H, INR 1.40 H, Sodium 130 L, Potassium 3.4 L, Chloride 98, Carbon Dioxide 26, Anion Gap 9.4, BUN 44 H, Creatinine 2.10 H, Estimated Creat Clear 44, Estimated GFR 24 L, Est GFR ( Amer) 30 L, Glucose 134 H D, C alcium 7.9 L, Total Bilirubin 3.5 H, AST 133 H, ALT 51, Alkaline Phosphatase 195 H, Total Protein 6.5, Albumin 3.0 L, Globulin 3.5 H, Albumin/Globulin Ratio 0.9 L 07/10/25 12:51 07/10/25 12:51 Orders (Tests/Meds): ED MEDICATIONS Discontinued Medications Generic Name Dose Route Start Last Admin Trade Name Freq PRN Reason Stop Dose Admin Ceftriaxone Sodium 2 gm/ 100 mls @ 200 mls/hr 07/10/25 19:00 Sodium Chloride IV 07/20/25 18:59 Q24H [facility] ORDERS Category Date Time Status CBC w/Auto Diff [Complete Blood Count Auto Diff] Stat Lab 07/10/25 12:51 Completed CMP [Comprehensive Metabolic Panel] Stat Lab 07/10/25 12:51 Completed PT INR [Prothrombin Time INR] Stat Lab 07/10/25 12:51 Completed Blood Culture Stat Micro 07/10/25 12:51 Ordered Medical Decision Narrative: Patient with above history and physical as stated above she had far greater than 250 PMNs in her ascites fluid yesterday. This is diagnostic for SBP. She remains asymptomatic from that standpoint was given 2 g of Rocephin last night. Her MELD NA score is now 26 up from 18. She has evidence of worsening renal function with a creatinine of 2.1 baseline of 1.2 was 2.1 yesterday as well and more recently was 1.5 a few weeks ago. So this is slowly crept up. However given the fact that she has been worked up by liver transplant is now having frequent paracentesis and has had SBP with worsening renal function after discussing the case with the hospital medicine doctor we feel the patient would be best served at the center where she can be evaluated by the transplant team. Therefore I will discuss the case with [facility] and reassess. Care was transitioned to Dr. Alegre pending [facility] discussion. <Kirsten Alegre, DO - Last Filed: 07/13/25 03:02> Medical Records Medical records reviewed: Yes I reviewed the patient's medical records. Vital Signs: 07/10/25 12:33 07/10/25 14:00 07/10/25 15:00 Temperature 98.0 F Temperature Source Oral Pulse Rate 92 H 90 Pulse Rate [Left Radial] 96 H Respiratory Rate 19 Blood Pressure 105/56 L 111/67 Blood Pressure [Right Arm] 109/51 L Blood Pressure Mean 73 Blood Pressure Mean [Right Arm] 70 02 Sat by Pulse Oximetry 100 97 97 07/10/25 16:00 07/10/25 16:43 Temperature 98.0 F Temperature Source Pulse Rate 88 88 Pulse Rate [Left Radial] Respiratory Rate 19 Blood Pressure 108/68 L 115/75 Blood Pressure [Right Arm] Blood Pressure Mean 74 Blood Pressure Mean [Right Arm] 02 Sat by Pulse Oximetry 94 L Lab Data Lab Results 07/10/25 12:51: WBC 11.4 H, RBC 3.18 L, Hgb 8.8 L, Hct 26.6 L, MCV 83.6, MCH 27.7, MCHC 33.1, RDW 17.0, Plt Count 110 L, MPV 9.6, Neut % (Auto) 78.6, Lymph % (Auto) 8.2 L, [place] % (Auto) 8.5, Eos % (Auto) 3.9, Baso % (Auto) 0.4, Neut # (Auto) 9.0 H, Lymph # (Auto) 0.9, [place] # (Auto) 1.0, Eos # (Auto) 0.5 H, Baso # (Auto) 0.0, PT 15.2 H, INR 1.40 H, Sodium 130 L, Potassium 3.4 L, Chloride 98, Carbon Dioxide 26, Anion Gap 9.4, BUN 44 H, Creatinine 2.10 H, Estimated Creat Clear 44, Estimated GFR 24 L, Est GFR ( Amer) 30 L, Glucose 134 H D, C alcium 7.9 L, Total Bilirubin 3.5 H, AST 133 H, ALT 51, Alkaline Phosphatase 195 H, Total Protein 6.5, Albumin 3.0 L, Globulin 3.5 H, Albumin/Globulin Ratio 0.9 L Orders (Tests/Meds): ED MEDICATIONS Discontinued Medications Generic Name Dose Route Start Last Admin Trade Name Rex PRN Reason Stop Dose Admin Ceftriaxone Sodium 2 gm/ 100 mls @ 200 mls/hr 07/10/25 19:00 Sodium Chloride IV 07/20/25 18:59 Q24H [facility] ORDERS Category Date Time Status CBC w/Auto Diff [Complete Blood Count Auto Diff] Stat Lab 07/10/25 12:51 Completed CMP [Comprehensive Metabolic Panel] Stat Lab 07/10/25 12:51 Completed PT INR [Prothrombin Time INR] Stat Lab 07/10/25 12:51 Completed Blood Culture Stat Micro 07/10/25 12:51 Ordered Medical Decision Narrative: Patient with above history and physical as stated above she had far greater than 250 PMNs in her ascites fluid yesterday. This is diagnostic for SBP. She remains asymptomatic from that standpoint was given 2 g of Rocephin last night. Her MELD NA score is now 26 up from 18. She has evidence of worsening renal function with a creatinine of 2.1 baseline of 1.2 was 2.1 yesterday as well and more recently was 1.5 a few weeks ago. So this is slowly crept up. However given the fact that she has been worked up by liver transplant is now having frequent paracentesis and has had SBP with worsening renal function after discussing the case with the hospital medicine doctor we feel the patient would be best served at the center where she can be evaluated by the transplant team. Therefore I will discuss the case with [facility] and reassess. Care was transitioned to Dr. Alegre pending [facility] discussion. Kirsten Alegre, I assumed care of the patient at 1500. After further discussion with [facility] hepatology, they accepted the patient for transfer. Critical Care <Peter Johnson MD - Last Filed: 07/11/25 07:01> Critical Care Time Critical Care Time: Yes Attestation: On 07/10/25, the high probability of a clinically significant, sudden or life threatening deterioration of the following system(s) required my full and direct attention, intervention and personal management. The time I documented below is in addition to time spent performing reported procedures but includes the following listed in this critical care notation. Total Time Total Critical Care Time: 35
--- NOTE | 2025-07-10 14:08 | PC.NURSE ---
Addendum entered by Adonay Velasco RN 07/10/25 14:09: transfer center states that they will call us back when they have an MD available. Original Note: call made to transfer center for pt transfer for SBP and pt is on liver transplant list.
[2025-07-10 15:00] VITALS: BP 111/67; PULSE 90; O2SAT 97
--- NOTE | 2025-07-10 15:20 | PC.NURSE ---
misa jauregui on phone with [facility]
--- NOTE | 2025-07-10 15:46 | PC.NURSE ---
while ER MD on phone with [facility] they stated that they received an emergent situation and had to call our provider back.
--- NOTE | 2025-07-10 15:52 | PC.NURSE ---
speaking with [facility] now
[2025-07-10 16:00] VITALS: BP 108/68; PULSE 88; O2SAT 94
[2025-07-10 16:43] VITALS: BP 115/75; PULSE 88; RESP 19; TEMP 36.7; O2SAT 96
== END 2025-07-10 16:54 | disposition other institution (70) ==
PROVIDERS: Emergency Provider Student in an Organized Health Care Education/Training Program; PCP Nurse Practitioner Family
DX: K65.2 Spontaneous bacterial peritonitis (principal); E88.01 Alpha-1-antitrypsin deficiency; N17.9 Acute kidney failure, unspecified; K74.69 Other cirrhosis of liver; R10.9 Unspecified abdominal pain
CPT/HCPCS: 80053; 85025; 85610; 87040; 99285